=== PATIENT | female | born 1970 | race Caucasian/White ===

== ENCOUNTER 2019-12-06 07:16 | Outpatient (REF) | payer BC, SELFPAY ==
[2019-12-06 11:45] LABS: Free T4 (Free Thyroxine) 1.05 ng/dL (0.71-1.85); Thyroid Stimulating Hormone 2.19 mIU/mL (0.32-4.0)
[2019-12-07 06:16] LABS: Triiodothyronine T3 Free 2.4 pg/mL (2.3-4.2)
== END 2019-12-06 07:17 | disposition home or self-care (01) ==
LOC: HO.HMGCLDS 07:16
PROVIDERS: PCP Internal Medicine; Visit Provider Internal Medicine
DX: E05.90 Thyrotoxicosis, unspecified without thyrotoxic crisis or storm (principal)
CPT/HCPCS: 84439; 84443; 84481

== ENCOUNTER → 2019-12-08 14:09 | Outpatient (BNVA) | payer BC, SELFPAY | PROVIDERS: PCP Internal Medicine; Referring Provider Internal Medicine; Visit Provider Internal Medicine Cardiovascular Disease | DX: Z76.89 Persons encountering health services in other specified circumstances (principal) ==

== ENCOUNTER 2019-12-28 14:26 | Outpatient (REF) | payer BC, SELFPAY ==
--- NOTE | 2019-12-28 | XR_ITS ---
EXAMINATION: XR SINUSES CLINICAL INFORMATION: Sinus headache. COMPARISON: None TECHNIQUE: 3 views of the sinuses were obtained. FINDINGS: Paranasal sinuses appear clear without air-fluid levels. No fractures are identified. No radiodense foreign bodies. XR/XR sinus min 3V IMPRESSION: Unremarkable sinus examination.
== END 2019-12-28 14:27 | disposition home or self-care (01) ==
LOC: HO.XRAY 14:26
PROVIDERS: PCP Internal Medicine; Visit Provider Internal Medicine
DX: R51.9 Headache, unspecified (principal)
CPT/HCPCS: 70220

== ENCOUNTER 2020-04-19 08:42 | Outpatient (REF) | payer BC, SELFPAY ==
[2020-04-22 06:37] LABS: HPV mRNA E6/E7 rflx Not Detected (Not Detected)
== END 2020-04-19 08:43 | disposition home or self-care (01) ==
LOC: HO.LAB 08:42
PROVIDERS: PCP Internal Medicine; Visit Provider Internal Medicine Cardiovascular Disease
DX: Z01.419 Encounter for gynecological examination (general) (routine) without abnormal findings (principal); N90.89 Other specified noninflammatory disorders of vulva and perineum; E11.9 Type 2 diabetes mellitus without complications; E05.00 Thyrotoxicosis with diffuse goiter without thyrotoxic crisis or storm; E66.01 Morbid (severe) obesity due to excess calories; I48.0 Paroxysmal atrial fibrillation; Z87.891 Personal history of nicotine dependence; Z87.42 Personal history of other diseases of the female genital tract; Z90.721 Acquired absence of ovaries, unilateral; Z79.84 Long term (current) use of oral hypoglycemic drugs; Z79.899 Other long term (current) drug therapy
CPT/HCPCS: 36415; 87624; 88142; 93005

== ENCOUNTER 2020-07-21 07:21 | Outpatient (REF) | payer BC, SELFPAY ==
--- NOTE | ~2020-07-21 | MM_ITS ---
EXAMINATION: MM SCREENING DIGITAL BREAST TOMOSYNTHESIS, BILATERAL CLINICAL INFORMATION: Screening. Asymptomatic. The lifetime risk of breast cancer based on the Tyrer-Cuzick Model is 11%. COMPARISON: Mammography: 01/20/2019, 10/17/2017 TECHNIQUE: Digital breast tomosynthesis is performed in both the craniocaudal and mediolateral oblique views along with computer-aided detection (CAD). Synthesized 2D images are generated from the tomosynthesis. Additional bilateral CC and additional bilateral MLO views are provided. FINDINGS: The breasts are almost entirely fatty (ACR BI-RADS breast composition Category a). There are no significant masses, abnormal calcifications, or other abnormalities. Background stromal markings are stable. There are scattered bilateral benign round and rim calcifications. The axilla and skin contours are unremarkable. MM/MM tomosynthesis screening BI IMPRESSION: No mammographic evidence of malignancy. ASSESSMENT: BI-RADS 1: Negative RECOMMENDATION: Routine annual mammography screening. This patient's information was entered into a reminder system with a target due date for their next mammogram.
== END 2020-07-21 07:22 | disposition home or self-care (01) ==
LOC: HO.MAMMO 07:21
PROVIDERS: Absent Provider Advanced Practice Midwife; PCP Internal Medicine; Visit Provider Advanced Practice Midwife
DX: Z12.31 Encounter for screening mammogram for malignant neoplasm of breast (principal)
CPT/HCPCS: 77063; 77067

== ENCOUNTER 2020-08-15 10:48 | Outpatient (REF) | payer BC, SELFPAY ==
[2020-08-15 13:21] LABS: MANUAL DIFF FLAG NO
[2020-08-15 13:31] LABS: Basophils Percent Auto 0.4 % (0-2); Eosinophils Absolute Auto 0.2 X10*3/uL (0.0-0.4); Eosinophils Percent Auto 2.4 % (0-4); Hematocrit 42.1 % (37-47); Hemoglobin 13.4 g/dl (12.0-16.0); Imm Gran Abs Auto 0.02 X10*3/uL (0.00-0.03); Imm Gran Pct Auto 0.3 % (0.0-0.4); Lymphocytes Absolute Auto 1.8 X10*3/uL (1.2-4.9); Lymphocytes Percent Auto 22.2 % (20-40); Mean Corpuscular HGB Conc 31.8 g/dl (31.0-35.0); Mean Corpuscular Hemoglobin 29.1 pg (27.0-33.0); Mean Corpuscular Volume 91.3 fL (80-98); Mean Platelet Volume 9.7 fL (9.4-12.3); Monocytes Absolute Auto 0.4 X10*3/uL (0.1-1.2); Monocytes Percent Auto 4.8 % (2-11); Neutrophils Absolute Auto 5.5 X10*3/uL (2.0-8.3); Neutrophils Percent Auto 69.9 % (45-73); Platelet Count 272 X10*3/uL (160-400); Red Blood Count 4.61 X10*6/uL (4.20-5.50); Red Cell Distribution Width 13.3 % (11.0-16.0); White Blood Count 7.9 X10*3/uL (4.8-10.8)
[2020-08-15 13:34] LABS: Estimated Average Glucose 226 mg/dL; Hemoglobin A1c % 9.5 %
[2020-08-15 13:56] LABS: Creatinine Urine 128.86 mg/dL; Microalbum/Creatinine Ratio Ur 28.7 ug/mg cr
[2020-08-15 13:59] LABS: Alanine Aminotransferase 11 U/L (0-31); Albumin Level 4.2 g/dL (3.5-5.0); Alkaline Phosphatase 93 U/L (39-117); Anion Gap 14 (12-20); Aspartate Amino Transferase 19 U/L (5-31); Bilirubin Total 0.6 mg/dL (0.0-1.0); Blood Urea Nitrogen 7 mg/dL (9-16); Calcium 9.7 mg/dL (8.4-10.2); Carbon Dioxide 29 mmol/L (22-29); Chloride 102 mmol/L (96-108); Cholesterol 130 mg/dL; Estimated Glomerular Filt Rate > 60; Glucose Fasting 184 mg/dL (60-99); HDL Cholesterol 47 mg/dL; LDL Cholesterol Calculated 56 mg/dl; Potassium 4.3 mmol/L (3.3-5.1); Sodium 141 mmol/L (135-145); Total Protein 7.1 g/dL (6.5-8.0); Triglycerides 137 mg/dL
[2020-08-15 14:22] LABS: Free T4 (Free Thyroxine) 1.11 ng/dL (0.71-1.85); Thyroid Stimulating Hormone 0.45 uIU/mL (0.32-4.0)
[2020-08-16 09:06] LABS: Triiodothyronine T3 Free 3.2 pg/mL (2.3-4.2)
== END 2020-08-15 10:49 | disposition home or self-care (01) ==
LOC: HO.10HDL 10:48
PROVIDERS: PCP Internal Medicine; Visit Provider Internal Medicine
DX: E11.9 Type 2 diabetes mellitus without complications (principal); I10 Essential (primary) hypertension; E78.00 Pure hypercholesterolemia, unspecified; E03.9 Hypothyroidism, unspecified; E05.90 Thyrotoxicosis, unspecified without thyrotoxic crisis or storm
CPT/HCPCS: 36415; 80053; 80061; 82043; 83036; 84439; 84443; 84481; 85025

== ENCOUNTER → 2020-10-23 08:57 | Outpatient (BNVA) | payer BC, SELFPAY | PROVIDERS: PCP Internal Medicine; Referring Provider Internal Medicine; Visit Provider Internal Medicine Cardiovascular Disease | DX: I48.0 Paroxysmal atrial fibrillation (principal); R60.9 Edema, unspecified | CPT/HCPCS: 93005 ==

== ENCOUNTER 2020-12-15 14:15 | Outpatient (REF) | payer BC, SELFPAY ==
[2020-12-15 15:07] LABS: Influenza A PCR NEGATIVE (Negative); Influenza B PCR NEGATIVE (Negative); Resp Syncy Virus RNA Qual PCR NEGATIVE (Negative); SARS COV2 PCR INHOUSE NEGATIVE (Negative)
== END 2020-12-15 14:16 | disposition home or self-care (01) ==
LOC: HO.LNP 14:15
PROVIDERS: Visit Provider Internal Medicine
DX: Z20.822 Contact with and (suspected) exposure to COVID-19 (principal); R05.9 Cough, unspecified
CPT/HCPCS: 0241U

== ENCOUNTER 2021-01-03 10:15 | Outpatient (REF) | payer BC, SELFPAY ==
[2021-01-03 13:58] LABS: MANUAL DIFF FLAG NO
[2021-01-03 14:01] LABS: Basophils Percent Auto 0.2 % (0-2); Eosinophils Absolute Auto 0.2 X10*3/uL (0.0-0.4); Eosinophils Percent Auto 2.3 % (0-4); Hematocrit 43.1 % (37.0-47.0); Hemoglobin 14.2 g/dl (12.0-16.0); Imm Gran Abs Auto 0.03 X10*3/uL (0.00-0.03); Imm Gran Pct Auto 0.3 % (0.0-0.4); Lymphocytes Absolute Auto 1.9 X10*3/uL (1.2-4.9); Lymphocytes Percent Auto 20.7 % (20-40); Mean Corpuscular HGB Conc 32.9 g/dl (31.0-35.0); Mean Corpuscular Hemoglobin 29.7 pg (27.0-33.0); Mean Corpuscular Volume 90.2 fL (80.0-98.0); Mean Platelet Volume 9.8 fL (9.4-12.3); Monocytes Absolute Auto 0.5 X10*3/uL (0.1-1.2); Monocytes Percent Auto 5.4 % (2-11); Neutrophils Absolute Auto 6.4 x10*3/uL (2.0-8.3); Neutrophils Percent Auto 71.1 % (45-73); Platelet Count 304 X10*3/uL (160-400); Red Blood Count 4.78 X10*6/uL (4.20-5.50); Red Cell Distribution Width 13.1 % (11.0-16.0)
[2021-01-03 14:28] LABS: Estimated Average Glucose 240 mg/dL
[2021-01-03 14:40] LABS: Alanine Aminotransferase 15 U/L (0-31); Albumin Level 4.1 g/dL (3.5-5.0); Alkaline Phosphatase 88 U/L (39-117); Anion Gap 15 (12-20); Aspartate Amino Transferase 23 U/L (5-31); Bilirubin Total 0.7 mg/dL (0.0-1.0); Blood Urea Nitrogen 7 mg/dL (9-16); Calcium 9.2 mg/dL (8.4-10.2); Carbon Dioxide 27 mmol/L (22-29); Chloride 99 mmol/L (96-108); Estimated Glomerular Filt Rate > 60; Glucose Random 289 mg/dL (60-115); Magnesium 1.6 mg/dL (1.6-2.6); Sodium 137 mmol/L (135-145); Total Protein 6.9 g/dL (6.5-8.0)
[2021-01-03 14:48] LABS: Free T4 (Free Thyroxine) 1.16 ng/dL (0.71-1.85); Thyroid Stimulating Hormone 0.82 uIU/mL (0.32-4.0)
[2021-01-04 18:27] LABS: Triiodothyronine T3 Total 129 ng/dL (76-181)
[2021-01-09 07:55] LABS: Thyrotropin Receptor Antibody 7.42 IU/L (<=2.00)
== END 2021-01-03 10:16 | disposition home or self-care (01) ==
LOC: HO.10HDL 10:15
PROVIDERS: Absent Provider Internal Medicine; Visit Provider Internal Medicine
DX: I48.92 Unspecified atrial flutter (principal); I10 Essential (primary) hypertension; E11.9 Type 2 diabetes mellitus without complications; E03.9 Hypothyroidism, unspecified; R60.9 Edema, unspecified; E05.00 Thyrotoxicosis with diffuse goiter without thyrotoxic crisis or storm; E66.01 Morbid (severe) obesity due to excess calories; Z68.43 Body mass index [BMI] 50.0-59.9, adult; Z71.3 Dietary counseling and surveillance
CPT/HCPCS: 36415; 80053; 83036; 83520; 83735; 84439; 84443; 84480; 85025; 93005

== ENCOUNTER 2021-01-12 10:54 | Day surgery (SDC) | payer BC, SELFPAY ==
--- NOTE | 2021-01-11 11:48 | P.CONAN_ITS ---
Documented by User: Gladys Ku NP 01/11/21 11:50 HPI - Anesthesia Eval Consult details Narrative: 50yo F for Cardioversion Eliquis for afib/flutter PMFSH Active Problems Active Problems: All Active Problems (Updated 01/03/21 @ 15:41 by Italo Cervantes MD) Atrial flutter (Acute) Peripheral edema (Acute) Morbid obesity (Acute) Graves disease (Acute) Diabetes (Acute) PAF (paroxysmal atrial fibrillation) (Acute) Past Medical History Medical History (Updated 01/11/21 @ 11:49 by Gladys Ku NP) Diabetes Graves disease Morbid obesity PAF (paroxysmal atrial fibrillation) Family History Family History Father CVD (cardiovascular disease) Heart attack Mother Lung cancer Surgical History Surgical History History of hernia repair S/P removal of left ovary Social History Social History (Updated 01/03/21 @ 15:13 by DARRYL Christian) Alcohol intake: never Patient Tobacco Use Status: Never used Tobacco Use of substances other than those prescribed or required for medical reasons: No Have you been hit, kicked, punched, or otherwise hurt by someone within the past year? If so, by whom?: No Are you DNR?: No Advance Directives: No Advance Directives Information Provided: Yes Meds Allergies Allergy/AdvReac Type Severity Reaction Status Date / Time No Known Allergies Allergy Verified 01/03/21 15:05 Home Medications Medication Instructions Recorded Confirmed Last Taken Type apixaban 5 mg tablet 5 mg PO BID 12/08/19 01/03/21 01/12/21 History atorvastatin 10 mg tablet 10 mg PO DAILY 12/08/19 01/03/21 Unknown History ascorbate calcium (vitamin C) 500 500 mg PO BID 10/23/20 01/03/21 Unknown History mg tablet metformin 500 mg tablet 500 mg PO BID tab 10/23/20 01/03/21 Unknown History methimazole 5 mg tablet 5 mg PO .qod tab 10/23/20 01/03/21 Unknown History glipizide 5 mg tablet, extended 10 mg PO BID tab 01/03/21 01/03/21 Unknown History release 24 hr Exam Exam Date and Time: January 11, 2021 1148 Pertinent Lab Results Pertinent Lab Results: Laboratory Tests 01/03/21 01/03/21 10:20 10:20 WBC 9.0 Hgb 14.2 Hct 43.1 Plt Count 304 Sodium 137 Potassium 4.0 Chloride 99 Carbon Dioxide 27 BUN 7 L Creatinine 0.82 Narrative Narrative: EKG 12/2020 Atrial flutter 120 beats per minute. Assessment and Plan Assessment Anesthesia Assessment: Chart Reviewed Documented by User: Teodoro Pendleton MD 01/12/21 12:50 [facility] Past Medical History Medical History (Updated 01/11/21 @ 11:49 by Gladys Ku NP) Diabetes Graves disease Morbid obesity PAF (paroxysmal atrial fibrillation) Family History Family History Father CVD (cardiovascular disease) Heart attack Mother Lung cancer Family history of problems with anesthesia: No Surgical History Surgical History History of hernia repair S/P removal of left ovary History of Problems with Anesthesia: No Social History Social History (Updated 01/03/21 @ 15:13 by DARRYL Christian) Alcohol intake: never Patient Tobacco Use Status: Never used Tobacco Use of substances other than those prescribed or required for medical reasons: No Have you been hit, kicked, punched, or otherwise hurt by someone within the past year? If so, by whom?: No Are you DNR?: No Advance Directives: No Advance Directives Information Provided: Yes Meds Allergies Allergy/AdvReac Type Severity Reaction Status Date / Time No Known Allergies Allergy Verified 01/03/21 15:05 Home Medications Medication Instructions Recorded Confirmed Last Taken Type apixaban 5 mg tablet 5 mg PO BID 12/08/19 01/03/21 01/12/21 History atorvastatin 10 mg tablet 10 mg PO DAILY 12/08/19 01/03/21 Unknown History ascorbate calcium (vitamin C) 500 500 mg PO BID 10/23/20 01/03/21 Unknown History mg tablet metformin 500 mg tablet 500 mg PO BID tab 10/23/20 01/03/21 Unknown History methimazole 5 mg tablet 5 mg PO .qod tab 10/23/20 01/03/21 Unknown History glipizide 5 mg tablet, extended 10 mg PO BID tab 01/03/21 01/03/21 Unknown History release 24 hr Exam Airway Mallampati Class: III TM Dist: >3cm Neck ROM: Full Denture: Upper and Lower Loose/Missing/Broken Teeth: Yes Heart: irreg ireg [id number] Lungs: cta b/l Assessment and Plan Assessment Anesthesia Assessment: Anesthesia Plan Discussed Final Anesthetic Review Family History of Problems with Anesthesia: No History of Problems with Anesthesia: No NPO: Yes ASA Class: III Final Preanesthetic Review: No Changes in Pt Med Stat, Meds/Allgs Chart Reviewed, Consent Obtained/Reviewed and Anes Risks/Benef Reviewed Patient Risk: Intermediate Procedure Risk: Intermediate Assessment/Block/Sedation in SS: Assess/Block/Sedation-SS Anesthetic Plan Anesthetic Plan: MAC: and Agree w/ Assess. and Plan Disposition: Standard PACU
--- NOTE | 2021-01-12 | ECG_ITS ---
Test Reason : post op Blood Pressure : / mmHG Vent. Rate : 093 BPM Atrial Rate : 093 BPM P-R Int : 242 ms QRS Dur : 096 ms QT Int : 568 ms P-R-T Axes : 045 013 053 degrees QTc Int : 706 ms Sinus rhythm with 1st degree A-V block Low voltage QRS Intra-ventricular conduction delay Prolonged QT Nonspecific T wave abnormality Abnormal ECG When compared with ECG of 12-JAN-2021 11:37, Normal sinus rhythm has replaced Atrial flutter with [address] less depressed in Lateral leads Referred By: Italo Cervantes Electronically Signed By:CARLOS BARKER MD
[2021-01-12 11:12] VITALS: BMI 61.0
[2021-01-12 11:13] LABS: Glucose, Whole Blood 245 mg/dL (60-115)
[2021-01-12 11:16] VITALS: BP 143/109; PULSE 112; RESP 18; TEMP 36.1; O2SAT 96
--- NOTE | 2021-01-12 11:29 | ECG_ITS ---
Test Reason : preop Blood Pressure : / mmHG Vent. Rate : 103 BPM Atrial Rate : 214 BPM P-R Int : 000 ms QRS Dur : 084 ms QT Int : 470 ms P-R-T Axes : 000 023 106 degrees QTc Int : 615 ms AGE AND GENDER SPECIFIC ECG ANALYSIS Atrial flutter with variable A-V block Intra-ventricular conduction delay Nonspecific ST abnormality Lateral leads Abnormal ECG When compared with ECG of 21-OCT-2019 11:28, Atrial flutter has replaced Sinus rhythm ST more depressed Lateral leads Referred By: Italo Cervantes Electronically Signed By:CARLOS BARKER MD
[2021-01-12] MEDS: Lactated Ringers 1,000 ML 50 ML IVCONT (11:35)
--- NOTE | 2021-01-12 11:46 | PC.NURSE ---
dr concepcion checked ekg confirmed aflutter
--- NOTE | 2021-01-12 13:16 | MHC.SHP ---
Pre-Procedural Eval Section A Date of Service: 01/12/21 The patient is an INPATIENT: No Section B Chief Complaint: Atrial Flutter Allergies: Allergies Allergy/AdvReac Type Severity Reaction Status Date / Time No Known Allergies Allergy Verified 01/03/21 15:05 Plan Diagnosis/Plan: Unchanged I have reviewed the history and physical and performed a pertinent physical examination on my patient. No changes have occurred unless specified.
--- NOTE | 2021-01-12 13:16 | HO.CARDIVERS ---
Cardioversion Procedure Note Cardioversion Date of Procedure: 01/12/21 Ordering Provider: Italo Cervantes Performing Provider: Italo Cervantes Indication for Procedure: Atrial flutter Performed with Transesophageal Echo: No History: 50 year old with atrial flutter. Here for cardioversion. Consent: Verbal and Written consent was obtained from the patient before starting. The patient was made aware of the risk of [] Procedure: After consent obtained, defib pads were attached and the patient was sedated by the anesthesia team. Once adequate sedation achieved, single shock of 200 J was given to the patient. She reverted to sinus rhythm. Left in stable condition for recovery from anesthesia. Complications: None Recommendations: Continue all meds as before.
[2021-01-12 13:20] VITALS: BP 109/72; PULSE 91; RESP 16; TEMP 36.4; O2SAT 95
[2021-01-12 13:25] VITALS: BP 124/76; PULSE 94; RESP 17; O2SAT 98
[2021-01-12 13:30] VITALS: BP 132/70; PULSE 91; RESP 16; O2SAT 96
[2021-01-12 13:35] VITALS: BP 124/83; PULSE 92; RESP 18; O2SAT 96
[2021-01-12 13:50] VITALS: BP 133/73; PULSE 93; RESP 18; O2SAT 96
== END 2021-01-12 15:32 | disposition home or self-care (01) ==
PROVIDERS: PCP Internal Medicine; Visit Provider Internal Medicine Cardiovascular Disease
PROC: 5A2204Z Restoration of Cardiac Rhythm, Single (ICD-10-PCS; principal; 2021-01-12 12:30)
DX: I48.92 Unspecified atrial flutter (principal); R60.9 Edema, unspecified; E05.00 Thyrotoxicosis with diffuse goiter without thyrotoxic crisis or storm; E11.9 Type 2 diabetes mellitus without complications; E66.01 Morbid (severe) obesity due to excess calories; Z68.43 Body mass index [BMI] 50.0-59.9, adult; Z79.01 Long term (current) use of anticoagulants; Z79.84 Long term (current) use of oral hypoglycemic drugs; Z79.899 Other long term (current) drug therapy
CPT/HCPCS: 82947; 92960; 93005

== ENCOUNTER → 2021-02-07 08:07 | Outpatient (REF) | payer BC, SELFPAY ==
--- NOTE | 2021-02-07 08:10 | CA_ITS ---
Transthoracic Echocardiogram Patient (Last, First, Middle): Corazon Cortez A Gender: Female Date of : 1970 Age: 50 Procedure Date: 02/07/2021 Procedure Type: Transthoracic Echocardiogram Location: OP Height: 170.18 cm Weight: 176.9 kg BSA: 2.69 m2 Heart Rate: bpm BP: 135 / 80 mmHg Orthopedic Physician Assistant: GERA Villeda MD: Italo Cervantes MD Symptoms: I48.0 - Paroxysmal atrial fibrillation Study Quality: Technically Difficult/Contrast Conclusions: - Normal left ventricular size and systolic function. - E/E prime ratio is between 8 and 15 consistent with indeterminate filling pressures. - Normal right ventricular cavity size and systolic function. - There is mild dilatation of the ascending aorta measuring 3.40 cm. Findings Procedure Information Contrast agent, definity, is being given per protocol without apparent complications. Left Ventricle Normal left ventricular size and systolic function. There is mildly increased left ventricular wall thickness. The visually estimated ejection fraction is between 60-65%. Abnormal diastolic function is noted. Spectral Doppler is indicative of an impaired relaxation filling pattern. E/E prime ratio is between 8 and 15 consistent with indeterminate filling pressures. Right Ventricle Normal right ventricular cavity size and systolic function. Atria Both atria are normal in size. Aortic Valve The aortic valve structure and function is likely normal. There is no aortic valve stenosis. There is no aortic valve regurgitation. Mitral Valve Normal mitral valve structure and function. There is no mitral valve regurgitation. There is no mitral valve stenosis. Pulmonic Valve The pulmonic valve is likely normal. Tricuspid Valve Likely normal tricuspid valve structure and function. Tricuspid regurgitation envelope is inadequate for calculation of right ventricular systolic pressure. Normal right atrial pressure. Great Vessels There is mild dilatation of the ascending aorta measuring 3.40 cm. The visualized portions of the pulmonary artery and branches are normal. Venous The inferior vena cava is normal in size and collapses greater than 50% with inspiration. Pericardium/Pleural There is no evidence of pericardial effusion. Prior Study Comparison No significant change compared to prior study dated: 04/23/2019. Measurements 2D Linear Measurements IVSd: 1.05 0.6-0.9/0.6-1.0 cm LVIDd: 4.64 3.9-5.3/4.2-5.9 cm LVIDd Index: 1.72 2.4-3.2/2.2-3.1 cm/m2 LVIDs: 3.51 2.0-3.6 cm LVPWd: 1.07 0.7-1.1 cm Ao Root: 3.40 2.1-3.5 cm LA Diam: 4.10 2.7-3.8/3.0-4.0 cm LAIDs Index: 1.52 1.5-2.3 cm/m2 LV Mass: 217.38 67-162/88-224 g LV Mass Index: 80.81 43-95/49-115 g/m2 LVOT Diam: 2.20 3.0+(-)1.3 cm 2D Systolic Function EF 4C: 62.30 >55% EF 2C: 64.50 >55% EF BiP: 63.40 >55% Mitral Valve MV Pk E: 0.95 MV PK A: 1.14 MV Decel Time: 96.00 E/A: 0.80 E'Lateral: 9.36 E'Medial: 6.53 E/E' Med: 14.60 E/E' Lat: 10.20 PHT: 28.00 MVA PHT: 7.86 Decel Bland: 9.89 Aortic Valve AoV Pk Sheng: 1.42 AoV Mn Sheng: 0.87 AoV VTI: 0.27 AoV Pk Grad: 8.00 Aov Mn Grad: 4.00 ANISA Cont.VTI: 3.62 LVOT LVOT Pk Sheng: 1.21 LVOT Mn Sheng: 0.83 LVOT VTI: 0.26 LVOT Pk Grad: 6.00 LVOT Mn Grad: 3.00 LVOT Diam: 2.20 LVOT Area: 3.80 Diastolic Function MV Pk E: 0.95 MV Pk A: 1.14 E/A: 0.80 E'Medial: 6.53 E/E' Med: 14.60 E' Laterial: 9.36 E/E' Lat: 10.20 Right Ventricle TAPSE (mm): 2.82 TVS' Sheng: 15.80 Great Vessels Aorta Ao Root-2D: 3.40 2.0-3.7 cm Ao Asc: 3.40 2.1-3.4 cm Ao Arch: 2.40 Updated in Other Vendor System with Status of Final Italo Cervantes MD electronically signed on 02/08/2021 7:10:49 PM with status of Final
== END ==
LOC: HO.CARD 08:07
PROVIDERS: PCP Internal Medicine; Visit Provider Internal Medicine Cardiovascular Disease
DX: I48.0 Paroxysmal atrial fibrillation (principal); Z79.01 Long term (current) use of anticoagulants
CPT/HCPCS: 93005; 93306; Q9957

== ENCOUNTER 2021-03-01 13:58 | Outpatient (REF) | payer BC, SELFPAY ==
[2021-03-01 14:10] LABS: COVID-19 Test Positive (Negative)
== END 2021-03-01 13:59 | disposition home or self-care (01) ==
LOC: HO.LNP 13:58
PROVIDERS: Visit Provider Internal Medicine
DX: Z20.822 Contact with and (suspected) exposure to COVID-19 (principal); R05.9 Cough, unspecified; R51.9 Headache, unspecified
CPT/HCPCS: 87635

== ENCOUNTER 2021-04-09 09:25 | Outpatient (REF) | payer BC, SELFPAY ==
[2021-04-09 11:45] LABS: MANUAL DIFF FLAG NO
[2021-04-09 11:54] LABS: Basophils Percent Auto 0.4 % (0-2); Eosinophils Absolute Auto 0.2 X10*3/uL (0.0-0.4); Eosinophils Percent Auto 2.5 % (0-4); Hematocrit 43.3 % (37.0-47.0); Hemoglobin 13.6 g/dl (12.0-16.0); Imm Gran Abs Auto 0.03 X10*3/uL (0.00-0.03); Imm Gran Pct Auto 0.4 % (0.0-0.4); Lymphocytes Absolute Auto 1.9 X10*3/uL (1.2-4.9); Mean Corpuscular HGB Conc 31.4 g/dl (31.0-35.0); Mean Corpuscular Hemoglobin 28.9 pg (27.0-33.0); Mean Corpuscular Volume 92.1 fL (80.0-98.0); Mean Platelet Volume 9.7 fL (9.4-12.3); Monocytes Absolute Auto 0.5 X10*3/uL (0.1-1.2); Monocytes Percent Auto 5.5 % (2-11); Neutrophils Absolute Auto 5.6 x10*3/uL (2.0-8.3); Neutrophils Percent Auto 68.2 % (45-73); Platelet Count 309 X10*3/uL (160-400); Red Cell Distribution Width 13.8 % (11.0-16.0); White Blood Count 8.2 X10*3/uL (4.8-10.8)
[2021-04-09 11:57] LABS: Estimated Average Glucose 235 mg/dL; Hemoglobin A1c % 9.8 %
[2021-04-09 12:01] LABS: Creatinine Urine 217.01 mg/dL; Microalbum/Creatinine Ratio Ur 9.6 ug/mg cr
[2021-04-09 12:03] LABS: Alanine Aminotransferase 13 U/L (0-31); Alkaline Phosphatase 80 U/L (39-117); Anion Gap 13 (12-20); Aspartate Amino Transferase 18 U/L (5-31); Bilirubin Total 0.7 mg/dL (0.0-1.0); Blood Urea Nitrogen 8 mg/dL (9-16); Calcium 10.1 mg/dL (8.4-10.2); Carbon Dioxide 31 mmol/L (22-29); Chloride 99 mmol/L (96-108); Estimated Glomerular Filt Rate > 60; Glucose Random 212 mg/dL (60-115); Potassium 4.9 mmol/L (3.3-5.1); Sodium 138 mmol/L (135-145); Total Protein 6.9 g/dL (6.5-8.0)
[2021-04-09 12:37] LABS: Free T4 (Free Thyroxine) 1.14 ng/dL (0.71-1.85); Thyroid Stimulating Hormone 1.19 uIU/mL (0.32-4.0)
== END 2021-04-09 09:26 | disposition home or self-care (01) ==
LOC: HO.HMGCLDS 09:25
PROVIDERS: PCP Internal Medicine; Visit Provider Internal Medicine
DX: E05.90 Thyrotoxicosis, unspecified without thyrotoxic crisis or storm (principal); E11.9 Type 2 diabetes mellitus without complications; I48.0 Paroxysmal atrial fibrillation; I10 Essential (primary) hypertension
CPT/HCPCS: 36415; 80053; 82043; 83036; 84439; 84443; 84481; 85025

== ENCOUNTER → 2021-06-06 12:21 | Outpatient (BNVA) | payer BC, SELFPAY | PROVIDERS: PCP Internal Medicine; Referring Provider Internal Medicine; Visit Provider Internal Medicine Cardiovascular Disease | DX: I48.0 Paroxysmal atrial fibrillation (principal); I48.92 Unspecified atrial flutter; R60.9 Edema, unspecified; E66.01 Morbid (severe) obesity due to excess calories; Z68.43 Body mass index [BMI] 50.0-59.9, adult | CPT/HCPCS: 93005 ==

== ENCOUNTER 2021-07-24 06:37 | Outpatient (REF) | payer BC, SELFPAY ==
[2021-07-24 11:47] LABS: Anion Gap 17 (12-20); Blood Urea Nitrogen 10 mg/dL (9-16); Calcium 9.8 mg/dL (8.4-10.2); Carbon Dioxide 26 mmol/L (22-29); Chloride 103 mmol/L (96-108); Estimated Glomerular Filt Rate > 60; Glucose Random 170 mg/dL (60-115); Sodium 142 mmol/L (135-145)
[2021-07-24 12:02] LABS: Creatinine Urine 102.06 mg/dL; Microalbum/Creatinine Ratio Ur 7.8 ug/mg cr
[2021-07-24 12:03] LABS: Estimated Average Glucose 183 mg/dL
[2021-07-24 12:10] LABS: Free T4 (Free Thyroxine) 1.17 ng/dL (0.71-1.85)
== END 2021-07-24 06:38 | disposition home or self-care (01) ==
LOC: HO.HMGCLDS 06:37
PROVIDERS: PCP Internal Medicine; Visit Provider Internal Medicine
DX: E05.00 Thyrotoxicosis with diffuse goiter without thyrotoxic crisis or storm (principal); E05.90 Thyrotoxicosis, unspecified without thyrotoxic crisis or storm; E11.9 Type 2 diabetes mellitus without complications; I10 Essential (primary) hypertension; I48.0 Paroxysmal atrial fibrillation
CPT/HCPCS: 36415; 80048; 82043; 83036; 84439; 84443; 84481

== ENCOUNTER 2021-07-26 07:40 | Outpatient (REF) | payer BC, SELFPAY ==
--- NOTE | ~2021-07-26 | MM_ITS ---
EXAMINATION: MM SCREENING DIGITAL BREAST TOMOSYNTHESIS, BILATERAL CLINICAL INFORMATION: Screening. Asymptomatic. The lifetime risk of breast cancer based on the Tyrer-Cuzick Model is 8%. COMPARISON: Mammography: 07/21/2020, 01/20/2019, 10/17/2017 TECHNIQUE: Digital breast tomosynthesis is performed in both the craniocaudal and mediolateral oblique views along with computer-aided detection (CAD). Synthesized 2D images are generated from the tomosynthesis. Additional bilateral CC views and additional left MLO view are provided. FINDINGS: The breasts are almost entirely fatty (ACR BI-RADS breast composition Category a). There are no significant masses, abnormal calcifications, or other abnormalities. Parenchymal pattern is similar to prior exams. Background stromal and fibroglandular densities are stable. Skin contours are smooth. MM/MM tomosynthesis screening BI IMPRESSION: No mammographic evidence of malignancy. ASSESSMENT: BI-RADS 1: Negative RECOMMENDATION: Routine annual mammography screening. This patient's information was entered into a reminder system with a target due date for their next mammogram.
== END 2021-07-26 07:41 | disposition home or self-care (01) ==
LOC: HO.MAMMO 07:40
PROVIDERS: PCP Internal Medicine; Visit Provider Advanced Practice Midwife
DX: Z12.31 Encounter for screening mammogram for malignant neoplasm of breast (principal)
CPT/HCPCS: 77063; 77067

== ENCOUNTER 2021-10-18 12:32 | Outpatient (REF) | payer BC, SELFPAY ==
[2021-10-18 15:03] LABS: Free T4 (Free Thyroxine) 1.26 ng/dL (0.71-1.85); Thyroid Stimulating Hormone 0.55 uIU/mL (0.32-4.0)
[2021-10-19 18:02] LABS: Triiodothyronine T3 Free 3.4 pg/mL (2.3-4.2)
== END 2021-10-18 12:33 | disposition home or self-care (01) ==
LOC: HO.HMGCLDS 12:32
PROVIDERS: PCP Internal Medicine; Visit Provider Internal Medicine
DX: E05.90 Thyrotoxicosis, unspecified without thyrotoxic crisis or storm (principal)
CPT/HCPCS: 36415; 84439; 84443; 84481

== ENCOUNTER → 2021-10-22 12:30 | Outpatient (BNVA) | payer BC, SELFPAY | PROVIDERS: PCP Internal Medicine; Referring Provider Internal Medicine; Visit Provider Internal Medicine Cardiovascular Disease | DX: I48.0 Paroxysmal atrial fibrillation (principal); E66.01 Morbid (severe) obesity due to excess calories | CPT/HCPCS: 93005 ==

== ENCOUNTER 2021-11-15 10:41 | Outpatient (REF) | payer BC, SELFPAY ==
[2021-11-15 14:00] LABS: MANUAL DIFF FLAG NO
[2021-11-15 14:10] LABS: Basophils Percent Auto 0.3 % (0-2); Eosinophils Absolute Auto 0.2 X10*3/uL (0.0-0.4); Eosinophils Percent Auto 2.3 % (0-4); Hematocrit 41.9 % (37.0-47.0); Hemoglobin 13.2 g/dl (12.0-16.0); Imm Gran Abs Auto 0.03 X10*3/uL (0.00-0.03); Imm Gran Pct Auto 0.4 % (0.0-0.4); Lymphocytes Absolute Auto 1.4 X10*3/uL (1.2-4.9); Lymphocytes Percent Auto 19.2 % (20-40); Mean Corpuscular HGB Conc 31.5 g/dl (31.0-35.0); Mean Corpuscular Volume 92.1 fL (80.0-98.0); Mean Platelet Volume 9.6 fL (9.4-12.3); Monocytes Absolute Auto 0.4 X10*3/uL (0.1-1.2); Neutrophils Absolute Auto 5.4 x10*3/uL (2.0-8.3); Neutrophils Percent Auto 72.8 % (45-73); Platelet Count 317 X10*3/uL (160-400); Red Blood Count 4.55 X10*6/uL (4.20-5.50); Red Cell Distribution Width 13.5 % (11.0-16.0); White Blood Count 7.4 X10*3/uL (4.8-10.8)
[2021-11-15 14:21] LABS: Estimated Average Glucose 169 mg/dL; Hemoglobin A1c % 7.5 %
[2021-11-15 14:38] LABS: Anion Gap 16 (12-20); Blood Urea Nitrogen 10 mg/dL (9-16); Calcium 9.2 mg/dL (8.4-10.2); Carbon Dioxide 28 mmol/L (22-29); Chloride 100 mmol/L (96-108); Estimated Glomerular Filt Rate > 60; Glucose Random 182 mg/dL (60-115); Magnesium 1.3 mg/dL (1.6-2.6); Potassium 4.2 mmol/L (3.3-5.1); Sodium 140 mmol/L (135-145)
== END 2021-11-15 10:42 | disposition home or self-care (01) ==
LOC: HO.10HDL 10:41
PROVIDERS: Visit Provider Internal Medicine
DX: I48.0 Paroxysmal atrial fibrillation (principal); I10 Essential (primary) hypertension; E11.9 Type 2 diabetes mellitus without complications
CPT/HCPCS: 36415; 80048; 83036; 83735; 85025

== ENCOUNTER 2022-01-10 10:49 | Outpatient (REF) | payer BC, SELFPAY ==
--- NOTE | ~2022-01-10 | US_ITS ---
EXAMINATION: US PELVIS TRANSVAGINAL CLINICAL INFORMATION: Postmenopausal bleeding COMPARISON: October 29, 2017 TECHNIQUE: Transcutaneous and transvaginal pelvic ultrasound. Transvaginal scanning was performed after voiding to better evaluate the endometrium and adnexa. FINDINGS: The uterus measures 8.6 x 3.6 x 4.2 cm. The uterus is anteverted. Trace fluid is seen within the cervix. The uterine contour is smooth. The endometrium measures 0.5 cm. The uterus is heterogeneous in echotexture which is a nonspecific finding but can be seen with uterine adenomyosis. No abnormal mass appreciated. The right ovary is not identified. No right adnexal abnormality is seen. The left ovary has been surgically removed. No left adnexal abnormality is appreciated. No significant free pelvic fluid. US/US pelvic and transvaginal IMPRESSION: Unremarkable examination.
== END 2022-01-10 10:50 | disposition home or self-care (01) ==
LOC: HO.US 10:49
PROVIDERS: Visit Provider Advanced Practice Midwife
DX: N95.0 Postmenopausal bleeding (principal)
CPT/HCPCS: 76830; 76856

== ENCOUNTER → 2022-02-06 14:03 | Outpatient (BNVA) | payer BC, SELFPAY | PROVIDERS: PCP Internal Medicine; Visit Provider Internal Medicine Cardiovascular Disease | DX: I48.92 Unspecified atrial flutter (principal) | CPT/HCPCS: 93005 ==

== ENCOUNTER 2022-02-06 14:31 | Inpatient (IN) | payer BC, SELFPAY ==
--- NOTE | ~2022-02-06 | XR_ITS ---
EXAMINATION: XR CHEST CLINICAL INFORMATION: Atrial flutter COMPARISON: None TECHNIQUE: Frontal view of the chest was obtained. FINDINGS: The lungs are clear. No airspace consolidation, pleural effusion, or pneumothorax. The cardiomediastinal silhouette is within normal limits. No acute osseous injury. XR/XR chest 1V IMPRESSION: No acute pulmonary process.
--- NOTE | 2022-02-06 14:37 | ED_ITS ---
HPI - Arrhythmia/Palpitations General Stated Complaint: cardiovascular, sent from cardiology Related Data Home Medications Medication Instructions Recorded Confirmed apixaban 5 mg tablet 5 mg PO BID 12/08/19 10/22/21 atorvastatin 10 mg tablet 10 mg PO DAILY 12/08/19 10/22/21 ascorbate calcium (vitamin C) 500 500 mg PO BID 10/23/20 10/22/21 mg tablet methimazole 5 mg tablet 5 mg PO .qod 10/23/20 10/22/21 glipizide 5 mg tablet, extended 10 mg PO BID 01/03/21 10/22/21 release 24 hr sitagliptin phosphate 100 mg 100 mg PO DAILY 06/06/21 10/22/21 tablet (Januvia) magnesium oxide 400 mg PO DAILY 01/09/22 metformin 1,000 mg tablet 1,500 mg PO BID 01/09/22 tirzepatide 5 mg/0.5 mL mg subcut 01/09/22 subcutaneous pen injector (Serene) Previous Rx's Medication Instructions Recorded flecainide 100 mg tablet 150 mg PO BID 90 days #270 tabs 03/19/21 furosemide 20 mg tablet 20 mg PO DAILY #60 tabs 10/08/21 diltiazem HCl 240 mg 240 mg PO DAILY #90 caps 10/30/21 capsule,extended release 24 hr Allergies Allergy/AdvReac Type Severity Reaction Status Date / Time No Known Allergies Allergy Verified 02/06/22 14:26 [facility] Past Medical History Medical History Diabetes Graves disease Morbid obesity PAF (paroxysmal atrial fibrillation) Surgical History H/O knee surgery History of hernia repair S/P removal of left ovary Family History Family History Father CVD (cardiovascular disease) Heart attack Mother Lung cancer Social History Social History Household Members: None Housing: Apartment Alcohol intake: never Patient Tobacco Use Status: Never used Tobacco Current occupational status: unemployed Sexual orientation: Straight/Heterosexual Gender identity: Female Course Course Course Narrative: This is a rapid medical exam. Deferred additional HPI, ROS, PE to primary provider. 51-year-old female with a history of AFib on Eliquis, diabetes, Graves disease she presents from Cardiology Office in AFib. Sent in for cardioversion. Patient c/o shortness of breath, heart fluttering/palpitations since last evening. Discharge Plan Discharge Prescriptions: No Action flecainide 100 mg tablet 150 mg PO BID 90 Days Qty: 270 3RF furosemide 20 mg tablet 20 mg PO DAILY Qty: 60 3RF diltiazem HCl 240 mg capsule,extended release 24hr 240 mg PO DAILY Qty: 90 3RF ascorbate calcium (vitamin C) 500 mg tablet 500 mg PO BID Eliquis 5 mg tablet 5 mg PO BID atorvastatin 10 mg tablet 10 mg PO DAILY methimazole 5 mg tablet 5 mg PO .qod glipizide 5 mg tablet extended release 24hr 10 mg PO BID metformin 1,000 mg tablet 1,500 mg PO BID Rx Instructions: 1 tab , 2 tab at night Mounjaro 5 mg/0.5 mL pen injector subcut magnesium oxide 400 mg magnesium capsule 400 mg PO DAILY Januvia 100 mg tablet 100 mg PO DAILY
[2022-02-06 14:40] VITALS: BP 155/88; PULSE 107; RESP 17; TEMP 35.9; O2SAT 95; BMI 58.1
--- NOTE | 2022-02-06 14:41 | ECG_ITS ---
Test Reason : tachy Blood Pressure : / mmHG Vent. Rate : 108 BPM Atrial Rate : 216 BPM P-R Int : 000 ms QRS Dur : 088 ms QT Int : 336 ms P-R-T Axes : 255 -03 -78 degrees QTc Int : 450 ms Atrial flutter with 2:1 A-V conduction Low voltage QRS Cannot rule out Anterior infarct (cited on or before 06-FEB-2022) Abnormal ECG When compared with ECG of 12-JAN-2021 13:22, rhythm change Referred By: Ana Montemayor Electronically Signed By:NIKKI HENRY
[2022-02-06 15:04] LABS: MANUAL DIFF FLAG NO
[2022-02-06 15:07] LABS: Basophils Percent Auto 0.1 % (0-2); Eosinophils Absolute Auto 0.3 X10*3/uL (0.0-0.4); Eosinophils Percent Auto 3.1 % (0-4); Hematocrit 44.2 % (37.0-47.0); Hemoglobin 14.4 g/dl (12.0-16.0); Imm Gran Abs Auto 0.03 X10*3/uL (0.00-0.03); Imm Gran Pct Auto 0.3 % (0.0-0.4); Lymphocytes Percent Auto 19.5 % (20-40); Mean Corpuscular HGB Conc 32.6 g/dl (31.0-35.0); Mean Corpuscular Hemoglobin 29.3 pg (27.0-33.0); Mean Platelet Volume 8.7 fL (9.4-12.3); Monocytes Absolute Auto 0.6 X10*3/uL (0.1-1.2); Monocytes Percent Auto 5.8 % (2-11); Neutrophils Absolute Auto 7.3 x10*3/uL (2.0-8.3); Neutrophils Percent Auto 71.2 % (45-73); Platelet Count 279 X10*3/uL (160-400); Red Blood Count 4.91 X10*6/uL (4.20-5.50); Red Cell Distribution Width 12.9 % (11.0-16.0); White Blood Count 10.3 X10*3/uL (4.8-10.8)
[2022-02-06 15:13] LABS: INTERNATIONAL NORM RATIO 1.3 (0.9-1.1); Prothrombin Time 15.1 SEC (10.0-13.1)
--- NOTE | 2022-02-06 15:23 | ED_ITS ---
HPI - Arrhythmia/Palpitations General Chief Complaint: Recheck/Abnormal Lab/Rx Stated Complaint: cardiovascular, sent from cardiology Time Seen by Provider: 02/06/22 15:09 Source: patient Mode of arrival: ambulatory Limitations: no limitations History of Present Illness HPI narrative: 51-year-old female with history of paroxysmal AFib started since last night feeling palpitation with slight shortness of breath but no chest pain patient wear a wrist watch that indicated patient in atrial fibrillation, patient went to see the school psychology professor today who sent her to the ED for further evaluation. Patient currently has no symptoms. Related Data Home Medications Medication Instructions Recorded Confirmed apixaban 5 mg tablet 5 mg PO BID 12/08/19 10/22/21 atorvastatin 10 mg tablet 10 mg PO DAILY 12/08/19 10/22/21 ascorbate calcium (vitamin C) 500 500 mg PO BID 10/23/20 10/22/21 mg tablet methimazole 5 mg tablet 5 mg PO .qod 10/23/20 10/22/21 glipizide 5 mg tablet, extended 10 mg PO BID 01/03/21 10/22/21 release 24 hr sitagliptin phosphate 100 mg 100 mg PO DAILY 06/06/21 10/22/21 tablet (Januvia) magnesium oxide 400 mg PO DAILY 01/09/22 metformin 1,000 mg tablet 1,500 mg PO BID 01/09/22 tirzepatide 5 mg/0.5 mL mg subcut 01/09/22 subcutaneous pen injector (Mounjaro) Previous Rx's Medication Instructions Recorded flecainide 100 mg tablet 150 mg PO BID 90 days #270 tabs 03/19/21 furosemide 20 mg tablet 20 mg PO DAILY #60 tabs 10/08/21 diltiazem HCl 240 mg 240 mg PO DAILY #90 caps 10/30/21 capsule,extended release 24 hr Allergies Allergy/AdvReac Type Severity Reaction Status Date / Time No Known Allergies Allergy Verified 02/06/22 14:26 Review of Systems Review of Systems: All other systems are reviewed and are negative Constitutional: Reports as per HPI and Reports no additional constitutional complaints Eyes: Reports as per HPI and Reports no additional eye complaints Reports system reviewed and no additional complaints, except as documented Cardiovascular: Reports as per HPI and Reports no additional cardiovascular com plaints Respiratory: Reports as per HPI and Reports no additional respiratory complaints Gastrointestinal: Reports as per HPI and Reports no additional gastrointestinal complaints Genitourinary: Reports no additional female genitourinary complaints Musculoskeletal: Reports no additional musculoskeletal complaints Skin/Breast: Reports system reviewed and no additional complaints, except as docu Psychiatric: Reports no additional psychiatric complaints Endocrine: Reports no additional endocrine complaints Hematologic/Lymphatic: Reports no additional hematologic/lymphatic complaints Allergic/Immunologic: Reports no additional allergic/immunologic complaints Reports system reviewed and no additional complaints, except as documented and Reports Abnormal speech present [facility] Past Medical History Medical History Diabetes Graves disease Morbid obesity PAF (paroxysmal atrial fibrillation) Surgical History H/O knee surgery History of hernia repair S/P removal of left ovary Family History Family History Father CVD (cardiovascular disease) Heart attack Mother Lung cancer Social History Social History Household Members: None Housing: Apartment Alcohol intake: never Patient Tobacco Use Status: Never used Tobacco Advance Directives: No Advance Directives Information Provided: Yes Current occupational status: unemployed Sexual orientation: Straight/Heterosexual Gender identity: Female Physical Exam Vital Signs: Vital Signs: Last Vital Signs Temp 96.6 F L 02/06/22 14:40 Pulse 107 H 02/06/22 14:40 Resp 17 02/06/22 14:40 BP 155/88 H 02/06/22 14:40 Pulse Ox 95 02/06/22 14:40 O2 Del Method 02/06/22 14:40 BMI result Body Mass Index 58.1 Vital signs have been reviewed as appeared to be correct. Blood pressure normal. Heart rate normal. Respiration rate normal. Temperature normal. Oxygen saturation normal. Appearance: Alert. Oriented X3. No acute distress. Head: Normal external exam. Normocephalic. Atraumatic. No Reese signs noted. No raccoon eyes noted Eyes: PERRLA. EOMI. Conjunctiva and sclera normal. Eyelids normal. ENT: TM's Normal. Pharynx normal. Uvula midline. Moist mucous membranes. No trismus noted. No drooling noted. No muffled voice noted. Neck: Normal inspection. Neck supple. FROM. No adenopathy. Thyroid Normal. No meningeal signs. No neck mass noted. CVS: Normal heart rate and rhythm. Heart sound normal. No murmurs noted. Pulses normal throughout. Respiratory: No respiratory distress. Painless inspiration. Breath sounds normal. No wheezes/rales/rhonchi noted. Chest nontender. No accessory muscle usage noted or decreased air movement noted. Abdomen: Soft and nontender. Bowel sounds normal in all 4 quadrants. No distention noted. No organomegaly noted. No visible injury noted. Back: No CVA tenderness. Full range of motion noted. Skin: Skin warm and dry. Normal skin color. Normal skin turgor. No rashes/lesions/lacerations noted. Extremities: No lower extremity edema. Extremities exhibit normal range of motion. Extremities nontender. Neuro: Oriented X 3. Cranial nerve exam: II-XII are grossly intact No motor deficit. No sensory deficit. Reflexes normal. Course Course Course Narrative: 51-year-old female history of AFib on Eliquis for anticoagulation yesterday patient felt palpitation with no dizziness no chest pain very subtle feeling of shortness of breath and patient's wrist Watch indicated to the patient that she has atrial fibrillation patient sent by Dr. Cervantes for further workup and cardioversion patient in the emergency department has no indication for emergent cardioversion will admit the patient. Low magnesium will replete magnesium. Rate control with Cardizem. Medical Decision Making Differential Diagnosis Differential Diagnoses: The differential diagnosis associated with the presentation includes Atrial fibrillation/arrhythmia/ACS/electrolyte disturbance/CHF. Admission/Observation Consideration of admission/observation: Escalation of care including admission/o bservation considered Consult Healthcare Provider Management of the patient was discussed with: Hospitalist Lab Data [facility] Lab Attestation statement: I reviewed the patient's lab results. Result Diagrams: 02/06/22 14:59 02/06/22 14:59 Labs: Lab Results 02/06/22 02/06/22 12 Range/Units 14:59 14:59 14:59 WBC 10.3 (4.8-10.8) X10*3/uL RBC 4.91 (4.20-5.50) X10*6/uL Hgb 14.4 (12.0-16.0) g/dl Hct 44.2 (37.0-47.0) % MCV 90.0 (80.0-98.0) fL MCH 29.3 (27.0-33.0) pg MCHC 32.6 (31.0-35.0) g/dl RDW 12.9 (11.0-16.0) % Plt Count 279 (160-400) X10*3/uL MPV 8.7 L (9.4-12.3) fL Immature Gran % (Auto) 0.3 (0.0-0.4) % Neut % (Auto) 71.2 (45-73) % Lymph % (Auto) 19.5 L (20-40) % [place] % (Auto) 5.8 (2-11) % Eos % (Auto) 3.1 (0-4) % Baso % (Auto) 0.1 (0-2) % Lymph # (Auto) 2.0 (1.2-4.9) X10*3/uL [place] # (Auto) 0.6 (0.1-1.2) X10*3/uL Eos # (Auto) 0.3 (0.0-0.4) X10*3/uL Baso # (Auto) 0.0 (0.0-0.2) X10*3/uL Abs Immat Gran (auto) 0.03 (0.00-0.03) X10*3/uL Absolute Neuts (auto) 7.3 (2.0-8.3) x10*3/uL Absolute Nucleated RBC 0.000 (0.0-0.012) X10*3/uL Nucleated RBC % (auto) 0.0 (0.0-0.2) /100WBC PT 15.1 H (10.0-13.1) SEC INR 1.3 H (0.9-1.1) Sodium 139 (135-145) mmol/L Potassium 4.3 (3.3-5.1) mmol/L Chloride 102 (96-108) mmol/L Carbon Dioxide 26 (22-29) mmol/L Anion Gap 15 (12-20) BUN 12 (9-16) mg/dL Creatinine 0.80 (0.5-1.4) mg/dL Estim Creat Clear Calc 133.8 Estimated GFR > 60 Random Glucose 174 H (60-115) mg/dL Calcium 9.8 D (8.4-10.2) mg/dL Magnesium 1.4 L* (1.6-2.6) mg/dL Total Bilirubin 0.5 (0.0-1.0) mg/dL Direct Bilirubin 0.2 (0.0-0.5) mg/dL AST 13 (5-31) U/L ALT 9 (0-31) U/L Alkaline Phosphatase 90 (39-117) U/L Troponin I High Sens (<3.5-17.0) ng/L Total Protein 6.7 (6.5-8.0) g/dL Albumin 4.2 (3.5-5.0) g/dL 02/06/22 Range/Units 14:59 WBC (4.8-10.8) X10*3/uL RBC (4.20-5.50) X10*6/uL Hgb (12.0-16.0) g/dl Hct (37.0-47.0) % MCV (80.0-98.0) fL MCH (27.0-33.0) pg MCHC (31.0-35.0) g/dl RDW (11.0-16.0) % Plt Count (160-400) X10*3/uL MPV (9.4-12.3) fL Immature Gran % (Auto) (0.0-0.4) % Neut % (Auto) (45-73) % Lymph % (Auto) (20-40) % [place] % (Auto) (2-11) % Eos % (Auto) (0-4) % Baso % (Auto) (0-2) % Lymph # (Auto) (1.2-4.9) X10*3/uL [place] # (Auto) (0.1-1.2) X10*3/uL Eos # (Auto) (0.0-0.4) X10*3/uL Baso # (Auto) (0.0-0.2) X10*3/uL Abs Immat Gran (auto) (0.00-0.03) X10*3/uL Absolute Neuts (auto) (2.0-8.3) x10*3/uL Absolute Nucleated RBC (0.0-0.012) X10*3/uL Nucleated RBC % (auto) (0.0-0.2) /100WBC PT (10.0-13.1) SEC INR (0.9-1.1) Sodium (135-145) mmol/L Potassium (3.3-5.1) mmol/L Chloride (96-108) mmol/L Carbon Dioxide (22-29) mmol/L Anion Gap (12-20) BUN (9-16) mg/dL Creatinine (0.5-1.4) mg/dL Estim Creat Clear Calc Estimated GFR Random Glucose (60-115) mg/dL Calcium (8.4-10.2) mg/dL Magnesium (1.6-2.6) mg/dL Total Bilirubin (0.0-1.0) mg/dL Direct Bilirubin (0.0-0.5) mg/dL AST (5-31) U/L ALT (0-31) U/L Alkaline Phosphatase (39-117) U/L Troponin I High Sens < 3.5 (<3.5-17.0) ng/L Total Protein (6.5-8.0) g/dL Albumin (3.5-5.0) g/dL Independent Interpretation I performed an independent interpretation of an: EKG (Atrial flutter with 2:1 av block at rate of 108, otherwise unremarkable intervals.) and Plain X-Ray (No acute pathology.) Radiology Impression Discussion of test interpretation with radiology: I have reviewed the radiologist's reading. Discharge Plan Discharge Clinical Impression: Atrial flutter, Hypomagnesemia Patient Disposition: Admitted As Inpatient Prescriptions: No Action flecainide 100 mg tablet 150 mg PO BID 90 Days Qty: 270 3RF furosemide 20 mg tablet 20 mg PO DAILY Qty: 60 3RF diltiazem HCl 240 mg capsule,extended release 24hr 240 mg PO DAILY Qty: 90 3RF ascorbate calcium (vitamin C) 500 mg tablet 500 mg PO BID Eliquis 5 mg tablet 5 mg PO BID atorvastatin 10 mg tablet 10 mg PO DAILY methimazole 5 mg tablet 5 mg PO .qod glipizide 5 mg tablet extended release 24hr 10 mg PO BID metformin 1,000 mg tablet 1,500 mg PO BID Rx Instructions: 1 tab , 2 tab at night Mounjaro 5 mg/0.5 mL pen injector subcut magnesium oxide 400 mg magnesium capsule 400 mg PO DAILY Januvia 100 mg tablet 100 mg PO DAILY
[2022-02-06 15:29] LABS: Alanine Aminotransferase 9 U/L (0-31); Albumin Level 4.2 g/dL (3.5-5.0); Alkaline Phosphatase 90 U/L (39-117); Anion Gap 15 (12-20); Aspartate Amino Transferase 13 U/L (5-31); Bilirubin Direct 0.2 mg/dL (0.0-0.5); Bilirubin Total 0.5 mg/dL (0.0-1.0); Blood Urea Nitrogen 12 mg/dL (9-16); Calcium 9.8 mg/dL (8.4-10.2); Carbon Dioxide 26 mmol/L (22-29); Chloride 102 mmol/L (96-108); Creatinine Clr Calc Pharmacy 133.8; Estimated Glomerular Filt Rate > 60; Glucose Random 174 mg/dL (60-115); Potassium 4.3 mmol/L (3.3-5.1); Sodium 139 mmol/L (135-145); Total Protein 6.7 g/dL (6.5-8.0)
[2022-02-06 15:33] LABS: Troponin-I High Sensitivity < 3.5 ng/L (<3.5-17.0)
[2022-02-06 15:58] LABS: Magnesium 1.4 mg/dL (1.6-2.6)
[2022-02-06] MEDS: Magnesium Sulfate/H2O 2 GM/50 ML PIGGYBACK IV (16:05)
[2022-02-06] MEDS: dilTIAZem HCL 50 MG/10 ML VIAL 20 MG IVPUSH (16:05)
--- NOTE | 2022-02-06 16:33 | PHA.MEDREC ---
Pharmacy Consult ? Medication Reconciliation Pharmacy has completed the medication reconciliation.
--- NOTE | 2022-02-06 16:40 | ECG_ITS ---
Test Reason : CHEST PAIN Blood Pressure : / mmHG Vent. Rate : 099 BPM Atrial Rate : 227 BPM P-R Int : 000 ms QRS Dur : 092 ms QT Int : 256 ms P-R-T Axes : 245 002 115 degrees QTc Int : 328 ms Atrial flutter with variable A-V block Abnormal ECG When compared with ECG of 06-FEB-2022 14:51, No significant changes seen Referred By: Ana Montemayor Electronically Signed By:NIKKI HENRY
--- NOTE | 2022-02-06 17:20 | PM.IMHP ---
History of Present Illness Date of Service: 02/06/22 Attending physician on admission: Jose Sanderson Chief Complaint: afib,palpatations 51-year-old female-with past medical history of of morbid obesity, diabetes, Graves disease, hyperlipidemia, AFib on flecainide/Cardizem-patient says that since last night she is having palpitations which she noted on her electronic watch and subsequently felt somewhat short of breath and also intermittent palpitation so for that reason she went to the cardiology clinic and subsequently discussed with the artists' booking representative-sent to ED for possible cardioversion in the morning, patient says that her palpitation is slightly better in the ED she received Cardizem IV: Heart rates are improving between 100-110. Denies any new complaint of chest pain or shortness of breath or abdominal pain or fever or chills or nausea or vomiting Denies any cough Denies any weakness or numbness. Lab imaging EKG reviewed: CBC fine, BMP also seems fine, magnesium 1.4. LFTs normal cxr : neg ekg: aflutter with variable degree of av block Review of Systems Review of Systems: As above. [facility] Medical History Diabetes Graves disease Morbid obesity PAF (paroxysmal atrial fibrillation) Family History Father CVD (cardiovascular disease) Heart attack Mother Lung cancer Surgical History H/O knee surgery History of hernia repair S/P removal of left ovary Social History Household Members: None Housing: Apartment Alcohol intake: never Patient Tobacco Use Status: Never used Tobacco Advance Directives: No Advance Directives Information Provided: Yes Current occupational status: unemployed Sexual orientation: Straight/Heterosexual Gender identity: Female Meds Allergies Allergy/AdvReac Type Severity Reaction Status Date / Time No Known Allergies Allergy Verified 02/06/22 14:26 Active Medications: Current Medications Acetaminophen (Acetaminophen 325 Mg Tablet) 650 mg PO DAILY LIS Acetaminophen (Acetaminophen 325 Mg Tablet) 975 mg PO BEDTIME LIS Apixaban (Apixaban 5 Mg Tablet) 5 mg PO BID LIS Ascorbic Acid (Ascorbic Acid 500 Mg Tablet) 500 mg PO DAILY LIS Atorvastatin Calcium (Atorvastatin Calcium 10 Mg Tablet) 10 mg PO DAILY [facility] Furosemide (Furosemide 20 Mg Tablet) 20 mg PO DAILY [facility]; Protocol Glipizide (Glipizide Xl 10 Mg Tab.Er.24) 10 mg PO BID [facility] Magnesium Sulfate (Magnesium Sulfate/H2o) 2 gm in 50 mls @ 25 mls/hr IV ONCE ONE Stop: 02/06/22 17:57 Last Admin: 02/06/22 16:05 Dose: 25 mls/hr Magnesium Oxide (Magnesium Oxide 400 Mg Tablet) 800 mg PO BID [facility] Methimazole (Methimazole 5 Mg Tablet) 5 mg PO Q2D [facility] Pharmacy Consult (Consult Rx Perform Med Rec) 1 each MISCELLANE ONCE PRN PRN Reason: Consult order Sodium Chloride (0.9 % Sodium Chloride Flush 3 Ml Syringe) 3 ml IVFLUSH QSHIFT [facility] Vitamin D (Cholecalciferol (Vitamin D3) 25 Mcg Tablet) 25 mcg PO DAILY [facility] Home Medications Medication Instructions Recorded Confirmed Last Taken Type apixaban 5 mg tablet 5 mg PO BID 12/08/19 02/06/22 02/06/22 History atorvastatin 10 mg tablet 10 mg PO DAILY 12/08/19 02/06/22 02/06/22 History methimazole 5 mg tablet 5 mg PO Q2D 10/23/20 02/06/22 02/06/22 History glipizide 5 mg tablet, extended 10 mg PO BID 01/03/21 02/06/22 02/06/22 History release 24 hr magnesium oxide 400 mg PO DAILY 01/09/22 02/06/22 02/06/22 History tirzepatide 5 mg/0.5 mL 5 mg subcut LEZAMA 01/09/22 02/06/22 02/03/22 History subcutaneous pen injector (Mounjaro) acetaminophen 325 mg tablet 650 mg PO DAILY 02/06/22 02/06/22 02/06/22 History acetaminophen 500 mg tablet 1,000 mg PO BEDTIME 02/06/22 02/06/22 02/05/22 History ascorbic acid (vitamin C) 500 mg 500 mg PO DAILY 02/06/22 02/06/22 02/06/22 History tablet (Vitamin C) cholecalciferol (vitamin D3) 25 25 mcg PO DAILY 02/06/22 02/06/22 02/06/22 History mcg (1,000 unit) tablet (Vitamin D3) diltiazem HCl 240 mg 240 mg PO BEDTIME 02/06/22 02/06/22 02/05/22 History capsule,extended release 24 hr metformin 500 mg tablet 1,000 mg PO DAILY@1800 02/06/22 02/06/22 02/05/22 History metformin 500 mg tablet 500 mg PO DAILY 02/06/22 02/06/22 02/06/22 History Physical Exam Vital Signs and Narrative: Vital Signs: Last Vital Signs Temp 96.6 F L 02/06/22 14:40 Pulse 107 H 02/06/22 14:40 Resp 17 02/06/22 14:40 BP 155/88 H 02/06/22 14:40 Pulse Ox 95 02/06/22 14:40 O2 Del Method 02/06/22 14:40 BMI result Body Mass Index 58.1 Appearance: Alert.? Oriented X3.? not in distress.? Eyes: Pupils equal, round and reactive to light.? Sclera nonicteric.? ENT: Pharynx normal.? Moist mucous membranes. cvs: irregular rythem, [id number] . res: clear to auscultation ,no rhonchii or wheezing abd: no rebound or guarding ,nt, bs present. ext pulses present , no cyanosis. neuro: axo3 , nonfocal. Results Labs CBC and Chem 7: 02/06/22 14:59 02/06/22 14:59 Labs: Laboratory Results - last 24 hr 02/06/22 02/06/22 02/06/22 14:59 14:59 14:59 MCV 90.0 MCH 29.3 MCHC 32.6 RDW 12.9 Plt Count 279 MPV 8.7 L Immature Gran % (Auto) 0.3 Neut % (Auto) 71.2 Lymph % (Auto) 19.5 L Esmer[place]da % (Auto) 5.8 Eos % (Auto) 3.1 Baso % (Auto) 0.1 Lymph # (Auto) 2.0 [place]mer[place] # (Auto) 0.6 Eos # (Auto) 0.3 Baso # (Auto) 0.0 Abs Immat Gran (auto) 0.03 Absolute Neuts (auto) 7.3 Absolute Nucleated RBC 0.000 Nucleated RBC % (auto) 0.0 PT 15.1 H INR 1.3 H Anion Gap 15 Estim Creat Clear Calc 133.8 Estimated GFR > 60 Random Glucose 174 H Calcium 9.8 D Magnesium 1.4 L* Total Bilirubin 0.5 Direct Bilirubin 0.2 AST 13 ALT 9 Alkaline Phosphatase 90 Troponin I High Sens Total Protein 6.7 Albumin 4.2 02/06/22 14:59 MCV MCH MCHC RDW Plt Count MPV Immature Gran % (Auto) Neut % (Auto) Lymph % (Auto) [place] % (Auto) Eos % (Auto) Baso % (Auto) Lymph # (Auto) [place] # (Auto) Eos # (Auto) Baso # (Auto) Abs Immat Gran (auto) Absolute Neuts (auto) Absolute Nucleated RBC Nucleated RBC % (auto) PT INR Anion Gap Estim Creat Clear Calc Estimated GFR Random Glucose Calcium Magnesium Total Bilirubin Direct Bilirubin AST ALT Alkaline Phosphatase Troponin I High Sens < 3.5 Total Protein Albumin ECG Attestation: I personally reviewed and interpreted this ECG as follows: (ekg: aflutter with variable degree of av block) Imaging Radiologist's Impressions: Impressions Chest X-Ray 02/06/22 16:40 IMPRESSION: No acute pulmonary process. Assessment and Plan (1) Hypomagnesemia: Status: Acute (2) Atrial flutter: Status: Acute (3) Morbid obesity: Status: Acute (4) Diabetes: Status: Acute (5) PAF (paroxysmal atrial fibrillation): Status: Acute Plan 51-year-old female-with past medical history of of morbid obesity, diabetes, Graves disease, hyperlipidemia, AFib on flecainide/Cardizem. 1. A flutter with variable degree of AV block Still has palpitations Ventricular rate between 110-120 Started Cardizem drip, hold p.o. medications Continue Eliquis uninterrupted. Troponin x1 negative Echo Cardiology evaluation for possible cardioversion in the morning. 2. Diabetes: Controlled Fingersticks with sliding scale coverage. 3. Graves disease: Continue methimazole. 4.HLP: Continue statin. 5. Morbid obesity: Encouraged to lose weight. DVT prophylaxis: On Eliquis Above management discussed with patient in detail and she understand in agreement with the plan, time spent 70 minute, patient full code. Considering symptomatic atrial flutter-likely need cardioversion,iv cardizem and tele monitoring-patient will benefit from 2 midnight stays. Time Spent With Patient Time: Total time managing care of this patient today ____ minutes. Quality Stroke Does the patient have a stroke diagnosis?: No VTE Prior VTE?: No VTE Risk Level:: Medical - moderate - high VTE Device Contraindication: N/A - Device Ordered VTE Drug Contraindication: N/A - Med Ordered
[2022-02-06 17:25] LABS: COVID-19 Test Negative (Negative); IDNOW Serial# 16C4AD1C
[2022-02-06 18:03] VITALS: BP 138/86; PULSE 106; RESP 15; O2SAT 96
--- NOTE | 2022-02-06 18:37 | PC.NURSE ---
patient alert, confused at baseline. hypoxic on room air into the 80s, placed on 2L nasal cannula. N/V, given zofran with + outcome. denies pain. able to make needs known.
--- NOTE | 2022-02-06 18:40 | PC.NURSE ---
patient alert, oriented x3. VSS. ambulates with stable gait. denies CP. able to make needs known, call castro within reach
[2022-02-06 18:52] LABS: Troponin-I High Sensitivity < 3.5 ng/L (<3.5-17.0)
[2022-02-06 19:57] VITALS: BP 133/79; PULSE 116; RESP 13; TEMP 36.9; O2SAT 96
[2022-02-06] MEDS: Apixaban 5 MG TABLET PO (20:30)
[2022-02-06] MEDS: Acetaminophen 325 MG TABLET 650 MG PO (20:31)
[2022-02-06] MEDS: Magnesium Oxide 400 MG TABLET 800 MG PO (20:31)
[2022-02-06 20:34] LABS: Glucose, Whole Blood 110 mg/dL (60-115)
[2022-02-06] MEDS: glipiZIDE XL 10 MG TAB.ER.24 PO (20:58)
[2022-02-06] MEDS: Acetaminophen 325 MG TABLET 975 MG PO (20:59)
--- NOTE | 2022-02-06 21:35 | PC.NURSE ---
Care of patient assumed in ED Overflow. She is alert, oriented x4, and ambulatory with steady gait. She presents from her PCP office found to be in a new a.flutter. She has a history of AFIB (on eliquis). She is asymptomatic, denies chest pain or discomfort, denies palpitations. Troponins negative in ED. Continuous telemetry in place. HR remains A.FLUTTER 1teens with stable BPs and no chest pain. Patient provided with call castro and informed of its use. She understands plan for admission for cardiology workup, including an echo.
--- NOTE | 2022-02-06 23:01 | PC.NURSE ---
This RN notices an order for cardizem drip from 5:30pm that wasn't started- not mentioned in passoff. This RN confirms with MD Barber who would like drip started now. HR remains a.flutter 100-1teens, patient denies chest pain or palpitations. Per MD Barber, initiate drip now.
[2022-02-06] MEDS: dilTIAZem HCL 125 MG in 0.9 % Sodium Chloride 100 ML IVCONT (23:50)
[2022-02-06] MEDS: 0.9 % Sodium Chloride Flush 3 ML SYRINGE IVFLUSH (23:50)
[2022-02-06 23:54] VITALS: BP 140/80; PULSE 115; RESP 19; O2SAT 94
[2022-02-07] VITALS (8 sets, daily range): BP systolic 96–124; BP diastolic 63–84; PULSE 89–119; RESP 15–24; TEMP 36.2–36.6; O2SAT 93–99
[2022-02-07 04:48] LABS: MANUAL DIFF FLAG NO
[2022-02-07 04:49] LABS: Basophils Percent Auto 0.1 % (0-2); Eosinophils Absolute Auto 0.3 X10*3/uL (0.0-0.4); Eosinophils Percent Auto 3.6 % (0-4); Hematocrit 41.2 % (37.0-47.0); Hemoglobin 13.4 g/dl (12.0-16.0); Imm Gran Abs Auto 0.03 X10*3/uL (0.00-0.03); Imm Gran Pct Auto 0.3 % (0.0-0.4); Lymphocytes Absolute Auto 2.7 X10*3/uL (1.2-4.9); Lymphocytes Percent Auto 30.7 % (20-40); Mean Corpuscular HGB Conc 32.5 g/dl (31.0-35.0); Mean Corpuscular Hemoglobin 29.8 pg (27.0-33.0); Mean Corpuscular Volume 91.6 fL (80.0-98.0); Mean Platelet Volume 8.8 fL (9.4-12.3); Monocytes Absolute Auto 0.6 X10*3/uL (0.1-1.2); Neutrophils Absolute Auto 5.2 x10*3/uL (2.0-8.3); Neutrophils Percent Auto 58.3 % (45-73); Platelet Count 258 X10*3/uL (160-400); Red Cell Distribution Width 13.1 % (11.0-16.0); White Blood Count 8.9 X10*3/uL (4.8-10.8)
[2022-02-07 05:18] LABS: Anion Gap 14 (12-20); Blood Urea Nitrogen 11 mg/dL (9-16); Calcium 9.3 mg/dL (8.4-10.2); Carbon Dioxide 24 mmol/L (22-29); Chloride 106 mmol/L (96-108); Creatinine Clr Calc Pharmacy 152.9; Estimated Glomerular Filt Rate > 60; Glucose Random 99 mg/dL (60-115); Potassium 3.6 mmol/L (3.3-5.1); Sodium 140 mmol/L (135-145)
--- NOTE | 2022-02-07 07:00 | CA_ITS ---
Transthoracic Echocardiogram Patient (Last, First, Middle): Corazon Cortez A Gender: Female Date of : 1970 Age: 51 Procedure Date: 02/07/2022 Procedure Type: Transthoracic Echocardiogram Location: ER Height: 170.18 cm Weight: 168.29 kg BSA: 2.63 m2 Heart Rate: 110 bpm BP: 124 / 84 mmHg Medical Record Retrieval Specialist: APOLLO Referring MD: Jose Sanderson MD Symptoms: aflutter Study Quality: Poor/Contrast ECG Rhythm: Atrial flutter Conclusions: - The left ventricular systolic function is normal. The visually estimated ejection fraction is between 60-65%. - No obvious valvular pathology seen on this study. Findings Procedure Information Contrast agent, definity, is being given per protocol without apparent complications. Left Ventricle Normal left ventricular cavity size. There is mildly increased left ventricular wall thickness. The left ventricular systolic function is normal. The visually estimated ejection fraction is between 60-65%. The calculated ejection fraction is 60% by biplane method. There is no evidence of regional wall motion abnormalities. Diastolic function is indeterminate on the basis of available data. Right Ventricle Normal right ventricular cavity size and systolic function. Atria Both atria are normal in size. Aortic Valve The aortic valve was not well visualized. There is no aortic valve stenosis. There is no aortic valve regurgitation. Mitral Valve There is mild mitral annular calcification. There is no mitral valve regurgitation. There is no mitral valve stenosis. Pulmonic Valve The pulmonic valve is likely normal. Tricuspid Valve There is trace tricuspid valve regurgitation. Tricuspid regurgitation envelope is inadequate for calculation of right ventricular systolic pressure. Great Vessels The asc aorta is normal in size. Venous The inferior vena cava is normal in size and collapses greater than 50% with inspiration. Pericardium/Pleural Prominent epicardial adipose tissue noted. There is no evidence of pericardial effusion. Prior Study Comparison No significant change compared to prior study dated: 02/07/2021. Recommendations, Care & Conclusions No obvious valvular pathology seen on this study. Measurements 2D Linear Measurements IVSd: 1.06 0.6-0.9/0.6-1.0 cm LVIDd: 4.57 3.9-5.3/4.2-5.9 cm LVIDd Index: 1.74 2.4-3.2/2.2-3.1 cm/m2 LVIDs: 3.52 2.0-3.6 cm LVPWd: 1.06 0.7-1.1 cm LA Diam: 3.70 2.7-3.8/3.0-4.0 cm LAIDs Index: 1.41 1.5-2.3 cm/m2 LV Mass: 212.13 67-162/88-224 g LV Mass Index: 80.66 43-95/49-115 g/m2 LVOT Diam: 2.30 3.0+(-)1.3 cm 2D Systolic Function EF 4C: 66.50 >55% EF 2C: 51.10 >55% EF BiP: 59.50 >55% Mitral Valve E'Lateral: 16.40 E'Medial: 12.50 Aortic Valve AoV Pk Sheng: 1.03 AoV Mn Shneg: 0.76 AoV VTI: 0.17 AoV Pk Grad: 4.00 Aov Mn Grad: 3.00 ANISA Cont.VTI: 3.23 LVOT LVOT Pk Sheng: 0.87 LVOT Mn Sheng: 0.61 LVOT VTI: 0.13 LVOT Pk Grad: 3.00 LVOT Mn Grad: 2.00 LVOT Diam: 2.30 LVOT Area: 4.15 Diastolic Function E'Medial: 12.50 E' Laterial: 16.40 Right Ventricle TAPSE (mm): 22.40 TVS' Sheng: 10.10 Tricuspid Valve RA Press: 3.00 Great Vessels Aorta Sinus of Valsalva: 3.60 2.0-3.5 cm Ao Asc: 3.30 2.1-3.4 cm Pulmonary Valve PV Pk Sheng: 0.87 Peak PV Grad: 3.00 Updated in Other Vendor System with Status of Final Marcel Lincoln MD electronically signed on 02/07/2022 3:11:53 PM with status of Final
[2022-02-07 07:28] LABS: Glucose, Whole Blood 121 mg/dL (60-115)
--- NOTE | 2022-02-07 08:02 | ECG_ITS ---
Test Reason : chest pain Blood Pressure : / mmHG Vent. Rate : 111 BPM Atrial Rate : 242 BPM P-R Int : 000 ms QRS Dur : 090 ms QT Int : 384 ms P-R-T Axes : 088 008 209 degrees QTc Int : 522 ms Atrial flutter with variable A-V block Low voltage QRS Nonspecific ST and T wave abnormality Prolonged QT Abnormal ECG When compared with ECG of 06-FEB-2022 16:40, No significant changes seen Referred By: Nikki Henry Electronically Signed By:NIKKI HENRY
[2022-02-07] MEDS: Atorvastatin Calcium 10 MG TABLET PO (08:45)
[2022-02-07] MEDS: Cholecalciferol (Vitamin D3) 25 MCG TABLET PO (08:45)
[2022-02-07] MEDS: Apixaban 5 MG TABLET PO (08:45)
[2022-02-07] MEDS: Magnesium Oxide 400 MG TABLET 800 MG PO (08:46)
[2022-02-07] MEDS: Ascorbic Acid 500 MG TABLET PO (08:46)
[2022-02-07] MEDS: Furosemide 20 MG TABLET PO (08:46)
[2022-02-07] MEDS: glipiZIDE XL 10 MG TAB.ER.24 PO (08:46)
[2022-02-07 09:16] LABS: Magnesium 1.9 mg/dL (1.6-2.6)
--- NOTE | 2022-02-07 11:09 | P.CONCA_ITS ---
History of Present Illness History of Present Illness Date of Service: 02/07/22 Chief complaint: Afib Narrative: This is a cardiology consultation regarding atrial flutter. Patient of Dr. Cervantes. Has a history of paroxysmal atrial fibrillation. She is maintained on Cardizem as well as flecainide. Has morbid obesity. History of hyperthyroidism on methimazole. She has had a couple of cardioversions in the past but nothing in the last few months. She has morbid obesity. Also has obstructive sleep apnea per her but does not use the CPAP machine regularly. This time, she has had palpitations for couple of days that prompted this admission. She was seen in the office and then sent to the ER and admitted. She remains in atrial flutter with rapid rate and on a Cardizem drip. Review of Systems Review of Systems: Yes all other systems are reviewed and are negative Constitutional: Constitutional: Reports as per HPI Eyes: Eyes: Reports as per HPI ENT: Reports as per HPI Cardiovascular: Cardiovascular: Reports as per HPI, Denies acrocyanosis, Denies cool extremities, Denies chest pain, Denies leg edema, Denies lightheadedness, Reports palpitations and Denies dyspnea Respiratory: Respiratory: Reports as per HPI, Reports no additional respiratory complaints and Denies dyspnea Gastrointestinal: Gastrointestinal: Reports as per HPI and Reports no additional gastrointestinal complaints Genitourinary: Genitourinary: Reports as per HPI Musculoskeletal: Musculoskeletal: Reports no additional musculoskeletal complaints and Reports as per HPI Integumentary/Breasts: Skin/Breast: Reports system reviewed and no additional complaints, except as docu Neurologic: Reports system reviewed and no additional complaints, except as documented and Reports as per HPI Psychiatric: Psychiatric: Reports no additional psychiatric complaints and Reports as per HPI Endocrine: Endocrine: Reports no additional endocrine complaints, Reports as per HPI and Reports palpitations Hematologic/Lymphatic: Hematologic/Lymphatic: Reports no additional hematologi c/lymphatic complaints and Reports as per HPI Allergic/Immunologic: Allergic/Immunologic: Reports no additional allergic/immunologic complaints and Reports as per HPI PMF Past Medical History Medical History Diabetes Graves disease Morbid obesity PAF (paroxysmal atrial fibrillation) Family History Family History Father CVD (cardiovascular disease) Heart attack Mother Lung cancer Surgical History Surgical History H/O knee surgery History of hernia repair S/P removal of left ovary Social History Social History Household Members: None Housing: Apartment Alcohol intake: never Patient Tobacco Use Status: Never used Tobacco Advance Directives: No Advance Directives Information Provided: Yes Current occupational status: unemployed Sexual orientation: Straight/Heterosexual Gender identity: Female Meds Allergies Allergy/AdvReac Type Severity Reaction Status Date / Time No Known Allergies Allergy Verified 02/06/22 14:26 Active Medications: Current Medications Acetaminophen (Acetaminophen 325 Mg Tablet) 650 mg PO DAILY [facility] Last Admin: 02/06/22 20:31 Dose: 650 mg Acetaminophen (Acetaminophen 325 Mg Tablet) 975 mg PO BEDTIME [facility] Last Admin: 02/06/22 20:59 Dose: 975 mg Apixaban (Apixaban 5 Mg Tablet) 5 mg PO BID [facility] Last Admin: 02/07/22 08:45 Dose: 5 mg Ascorbic Acid (Ascorbic Acid 500 Mg Tablet) 500 mg PO DAILY [facility] Last Admin: 02/07/22 08:46 Dose: 500 mg Atorvastatin Calcium (Atorvastatin Calcium 10 Mg Tablet) 10 mg PO DAILY [facility] Last Admin: 02/07/22 08:45 Dose: 10 mg Dextrose (Dextrose 50 % 25 Gm/50 Ml Syringe) 25 gm IVPUSH Q15M PRN; Protocol PRN Reason: per Hypoglycemia Standing Ord. Furosemide (Furosemide 20 Mg Tablet) 20 mg PO DAILY [facility]; Protocol Last Admin: 02/07/22 08:46 Dose: 20 mg Glipizide (Glipizide Xl 10 Mg Tab.Er.24) 10 mg PO BID [facility] Last Admin: 02/07/22 08:46 Dose: 10 mg Glucose (Glucose Gel 15 Gm Gel..Gram.) 15 gm PO Q15M PRN; Protocol PRN Reason: per Hypoglycemia Standing Ord. Diltiazem HCl 125 mg/ Sodium (Chloride) 125 mls @ 0 mls/hr IVCONT .Q0M [facility]; Protocol Last Admin: 02/06/22 23:50 Dose: 5 mg/hr, 5 mls/hr Insulin Human Lispro (Insulin Lispro 100 Unit/Ml 3 Ml Vial) 0 unit SUBCUT QIDACHS [facility]; Protocol Last Admin: 02/07/22 07:40 Dose: Not Given Magnesium Oxide (Magnesium Oxide 400 Mg Tablet) 800 mg PO BID [facility] Last Admin: 02/07/22 08:46 Dose: 800 mg Methimazole (Methimazole 5 Mg Tablet) 5 mg PO Q2D [facility] Pharmacy Consult (Consult Rx Perform Med Rec) 1 each MISCELLANE ONCE PRN PRN Reason: Consult order Sodium Chloride (0.9 % Sodium Chloride Flush 3 Ml Syringe) 3 ml IVFLUSH QSHIFT [facility] Last Admin: 02/07/22 08:46 Dose: Not Given Vitamin D (Cholecalciferol (Vitamin D3) 25 Mcg Tablet) 25 mcg PO DAILY [facility] Last Admin: 02/07/22 08:45 Dose: 25 mcg Home Medications Medication Instructions Recorded Confirmed Last Taken Type apixaban 5 mg tablet 5 mg PO BID 12/08/19 02/06/22 02/06/22 History atorvastatin 10 mg tablet 10 mg PO DAILY 12/08/19 02/06/22 02/06/22 History methimazole 5 mg tablet 5 mg PO Q2D 10/23/20 02/06/22 02/06/22 History glipizide 5 mg tablet, extended 10 mg PO BID 01/03/21 02/06/22 02/06/22 History release 24 hr magnesium oxide 400 mg PO DAILY 01/09/22 02/06/22 02/06/22 History tirzepatide 5 mg/0.5 mL 5 mg subcut LEZAMA 01/09/22 02/06/22 02/03/22 History subcutaneous pen injector (Mounjaro) acetaminophen 325 mg tablet 650 mg PO DAILY 02/06/22 02/06/22 02/06/22 History acetaminophen 500 mg tablet 1,000 mg PO BEDTIME 02/06/22 02/06/22 02/05/22 History ascorbic acid (vitamin C) 500 mg 500 mg PO DAILY 02/06/22 02/06/22 02/06/22 History tablet (Vitamin C) cholecalciferol (vitamin D3) 25 25 mcg PO DAILY 02/06/22 02/06/22 02/06/22 History mcg (1,000 unit) tablet (Vitamin D3) diltiazem HCl 240 mg 240 mg PO BEDTIME 02/06/22 02/06/22 02/05/22 History capsule,extended release 24 hr metformin 500 mg tablet 1,000 mg PO DAILY@1800 02/06/22 02/06/22 02/05/22 History metformin 500 mg tablet 500 mg PO DAILY 02/06/22 02/06/22 02/06/22 History Physical Exam Vital Signs: Vital Signs: Last Vital Signs Temp 97.9 F 02/07/22 04:44 Pulse 119 H 02/07/22 07:17 Resp 15 02/07/22 07:17 BP 124/84 02/07/22 07:17 Pulse Ox 93 02/07/22 07:17 O2 Del Method 02/07/22 07:17 BMI result Body Mass Index 58.1 Const: General: comfortable and no acute distress Orientation/consciousness: patient oriented x3 HEENT: Other: Unremarkable Head: Yes normal to inspection Neck: Neck: Yes normal visual inspection Chest: Chest palpation & inspection: normal inspection of the chest Resp: Auscultation: clear to auscultation bilaterally Cardio: Palpation: normal PMI Heart sounds: S1 normal heart sound present, S2 normal heart sound present, no gallops, no murmurs and no rubs GI: Palpation (GI): Soft to palpation Back/Spine/Pelvis: Other: unremarkable Skin: General skin exam: no rashes or lesions noted Neuro: General: patient oriented x3 Extrem: General: Yes normal to inspection Psych: Mental Status: mental status grossly normal Objective Labs and Meds Result diagrams: 02/07/22 04:35 02/07/22 04:35 Lab results: Laboratory Results - last 24 hr 02/06/22 02/06/22 02/06/22 14:59 14:59 14:59 WBC 10.3 RBC 4.91 Hgb 14.4 Hct 44.2 MCV 90.0 MCH 29.3 MCHC 32.6 RDW 12.9 Plt Count 279 MPV 8.7 L Immature Gran % (Auto) 0.3 Neut % (Auto) 71.2 Lymph % (Auto) 19.5 L [place] % (Auto) 5.8 Eos % (Auto) 3.1 Baso % (Auto) 0.1 Lymph # (Auto) 2.0 [place] # (Auto) 0.6 Eos # (Auto) 0.3 Baso # (Auto) 0.0 Abs Immat Gran (auto) 0.03 Absolute Neuts (auto) 7.3 Absolute Nucleated RBC 0.000 Nucleated RBC % (auto) 0.0 PT 15.1 H INR 1.3 H Sodium 139 Potassium 4.3 Chloride 102 Carbon Dioxide 26 Anion Gap 15 BUN 12 Creatinine 0.80 Estim Creat Clear Calc 133.8 Estimated GFR > 60 POC Glucose Random Glucose 174 H Calcium 9.8 D Magnesium 1.4 L* Total Bilirubin 0.5 Direct Bilirubin 0.2 AST 13 ALT 9 Alkaline Phosphatase 90 Troponin I High Sens Total Protein 6.7 Albumin 4.2 COVID-19 (MONIK) COVID-19 Clin Com 02/06/22 02/06/22 02/06/22 14:59 17:02 18:24 WBC RBC Hgb Hct MCV MCH MCHC RDW Plt Count MPV Immature Gran % (Auto) Neut % (Auto) Lymph % (Auto) [place] % (Auto) Eos % (Auto) Baso % (Auto) Lymph # (Auto) [place] # (Auto) Eos # (Auto) Baso # (Auto) Abs Immat Gran (auto) Absolute Neuts (auto) Absolute Nucleated RBC Nucleated RBC % (auto) PT INR Sodium Potassium Chloride Carbon Dioxide Anion Gap BUN Creatinine Estim Creat Clear Calc Estimated GFR POC Glucose Random Glucose Calcium Magnesium Total Bilirubin Direct Bilirubin AST ALT Alkaline Phosphatase Troponin I High Sens < 3.5 < 3.5 Total Protein Albumin COVID-19 (MONIK) Negative COVID-19 Clin Com See Note 02/06/22 02/07/22 02/07/22 20:26 04:35 04:35 WBC 8.9 RBC 4.50 Hgb 13.4 Hct 41.2 MCV 91.6 MCH 29.8 MCHC 32.5 RDW 13.1 Plt Count 258 MPV 8.8 L Immature Gran % (Auto) 0.3 Neut % (Auto) 58.3 Lymph % (Auto) 30.7 [place] % (Auto) 7.0 Eos % (Auto) 3.6 Baso % (Auto) 0.1 Lymph # (Auto) 2.7 [place] # (Auto) 0.6 Eos # (Auto) 0.3 Baso # (Auto) 0.0 Abs Immat Gran (auto) 0.03 Absolute Neuts (auto) 5.2 Absolute Nucleated RBC 0.000 Nucleated RBC % (auto) 0.0 PT INR Sodium 140 Potassium 3.6 Chloride 106 Carbon Dioxide 24 Anion Gap 14 BUN 11 Creatinine 0.70 Estim Creat Clear Calc 152.9 Estimated GFR > 60 POC Glucose 110 Random Glucose 99 Calcium 9.3 Magnesium 1.9 Total Bilirubin Direct Bilirubin AST ALT Alkaline Phosphatase Troponin I High Sens Total Protein Albumin COVID-19 (MONIK) COVID-19 Clin Com 02/07/22 07:15 WBC RBC Hgb Hct MCV MCH MCHC RDW Plt Count MPV Immature Gran % (Auto) Neut % (Auto) Lymph % (Auto) [place] % (Auto) Eos % (Auto) Baso % (Auto) Lymph # (Auto) [place] # (Auto) Eos # (Auto) Baso # (Auto) Abs Immat Gran (auto) Absolute Neuts (auto) Absolute Nucleated RBC Nucleated RBC % (auto) PT INR Sodium Potassium Chloride Carbon Dioxide Anion Gap BUN Creatinine Estim Creat Clear Calc Estimated GFR POC Glucose 121 H Random Glucose Calcium Magnesium Total Bilirubin Direct Bilirubin AST ALT Alkaline Phosphatase Troponin I High Sens Total Protein Albumin COVID-19 (MONIK) COVID-19 Clin Com ECG Interpretation: EKG with atrial flutter at a rate of 111/Min. Nonspecific ST-T changes. Imaging Radiologist's impression: Impressions Chest X-Ray 02/06/22 16:40 IMPRESSION: No acute pulmonary process. Assessment and Plan (1) Atrial flutter with rapid ventricular response: Status: Acute (2) Morbid obesity: Status: Acute (3) Graves disease: Status: Acute Plan Patient remains in atrial flutter with rapid rate. She is on IV Cardizem drip. She is highly symptomatic with palpitations. Hence we will plan on cardioversion. It seems she has taken anticoagulation at least for the last few weeks without any interruptions. Post cardioversion, she can continue diltiazem but we will probably stop the flecainide as she already remains on high-dose and use rather something like Multaq. She still remains at high risk for recurrence especially due to weight as well as irregular CPAP use for sleep apnea. I did discuss these with her. Her thyroid is also other issue. These will need to be addressed eventually as an outpatient. Consider weight loss surgery as well. Time Spent With Patient Time: Total time managing care of this patient today ____ minutes. Procedures Date of Service Date of Service: 02/07/22
--- NOTE | 2022-02-07 11:16 | P.PNCAR_ITS ---
Cardioversion Procedure Note Cardioversion Date of Procedure: 02/07/2022 Ordering Provider: Performing Provider: Indication for Procedure: Atrial flutter with rapid rate Pre-Op Diagnosis: Atrial flutter Post-Op Diagnosis: Sinus rhythm History: See consultation Consent: Informed consent obtained. Procedure: After informed consent was obtained, patient was taken to the PACU. The patient was then positioned appropriately. The cardioversion pads were placed in anteroposterior position. Once under anesthesia, 120 joules of synchronized shock was administered. The rhythm converted from atrial flutter to sinus rhythm. Patient remained in sinus rhythm after the end of procedure. Complications: None Impression: Successful cardioversion from atrial flutter to sinus. Recommendations: Will d/w primary fastener technologist. Continue diltiazem, flecainide without changes.
--- NOTE | 2022-02-07 11:16 | MHC.SHP ---
Pre-Procedural Eval Section A Date of Service: 02/07/22 The patient is an INPATIENT: Yes Section B Chief Complaint: Afib Allergies: Allergies Allergy/AdvReac Type Severity Reaction Status Date / Time No Known Allergies Allergy Verified 02/06/22 14:26 Plan I have reviewed the history and physical and performed a pertinent physical examination on my patient. No changes have occurred unless specified. Time Spent With Patient Time: Total time managing care of this patient today ____ minutes.
--- NOTE | 2022-02-07 11:22 | PC.NURSE ---
pt off unit to [facility] to be cardioverted
--- NOTE | 2022-02-07 11:51 | HO.ANESPROP2 ---
[facility] Active Problems Active Problems: All Active Problems (Updated 02/07/22 @ 11:12 by Marcel Lincoln MD) Atrial flutter with rapid ventricular response (Acute) Hypomagnesemia (Acute) Atrial flutter (Acute) Peripheral edema (Acute) Morbid obesity (Acute) Graves disease (Acute) Diabetes (Acute) PAF (paroxysmal atrial fibrillation) (Acute) Past Medical History Medical History Diabetes Graves disease Morbid obesity PAF (paroxysmal atrial fibrillation) Family History Family History Father CVD (cardiovascular disease) Heart attack Mother Lung cancer Family history of problems with anesthesia: No Surgical History Surgical History H/O knee surgery History of hernia repair S/P removal of left ovary History of Problems with Anesthesia: No Social History Social History Household Members: None Housing: Apartment Alcohol intake: never Patient Tobacco Use Status: Never used Tobacco Use of substances other than those prescribed or required for medical reasons: No Are you DNR?: No Advance Directives: No Advance Directives Information Provided: Yes Current occupational status: unemployed Sexual orientation: Straight/Heterosexual Gender identity: Female Meds Allergies Allergy/AdvReac Type Severity Reaction Status Date / Time No Known Allergies Allergy Verified 02/06/22 14:26 Active Medications: Current Medications Acetaminophen (Acetaminophen 325 Mg Tablet) 650 mg PO DAILY [facility] Last Admin: 02/06/22 20:31 Dose: 650 mg Acetaminophen (Acetaminophen 325 Mg Tablet) 975 mg PO BEDTIME [facility] Last Admin: 02/06/22 20:59 Dose: 975 mg Apixaban (Apixaban 5 Mg Tablet) 5 mg PO BID [facility] Last Admin: 02/07/22 08:45 Dose: 5 mg Ascorbic Acid (Ascorbic Acid 500 Mg Tablet) 500 mg PO DAILY [facility] Last Admin: 02/07/22 08:46 Dose: 500 mg Atorvastatin Calcium (Atorvastatin Calcium 10 Mg Tablet) 10 mg PO DAILY [facility] Last Admin: 02/07/22 08:45 Dose: 10 mg Dextrose (Dextrose 50 % 25 Gm/50 Ml Syringe) 25 gm IVPUSH Q15M PRN; Protocol PRN Reason: per Hypoglycemia Standing Ord. Furosemide (Furosemide 20 Mg Tablet) 20 mg PO DAILY [facility]; Protocol Last Admin: 02/07/22 08:46 Dose: 20 mg Glipizide (Glipizide Xl 10 Mg Tab.Er.24) 10 mg PO BID [facility] Last Admin: 02/07/22 08:46 Dose: 10 mg Glucose (Glucose Gel 15 Gm Gel..Gram.) 15 gm PO Q15M PRN; Protocol PRN Reason: per Hypoglycemia Standing Ord. Diltiazem HCl 125 mg/ Sodium (Chloride) 125 mls @ 0 mls/hr IVCONT .Q0M [facility]; Protocol Last Admin: 02/06/22 23:50 Dose: 5 mg/hr, 5 mls/hr Insulin Human Lispro (Insulin Lispro 100 Unit/Ml 3 Ml Vial) 0 unit SUBCUT QIDACHS [facility]; Protocol Last Admin: 02/07/22 07:40 Dose: Not Given Magnesium Oxide (Magnesium Oxide 400 Mg Tablet) 800 mg PO BID [facility] Last Admin: 02/07/22 08:46 Dose: 800 mg Methimazole (Methimazole 5 Mg Tablet) 5 mg PO Q2D [facility] Pharmacy Consult (Consult Rx Perform Med Rec) 1 each MISCELLANE ONCE PRN PRN Reason: Consult order Sodium Chloride (0.9 % Sodium Chloride Flush 3 Ml Syringe) 3 ml IVFLUSH QSHIFT [facility] Last Admin: 02/07/22 08:46 Dose: Not Given Vitamin D (Cholecalciferol (Vitamin D3) 25 Mcg Tablet) 25 mcg PO DAILY [facility] Last Admin: 02/07/22 08:45 Dose: 25 mcg Home Medications Medication Instructions Recorded Confirmed Last Taken Type apixaban 5 mg tablet 5 mg PO BID 12/08/19 02/06/22 02/06/22 History atorvastatin 10 mg tablet 10 mg PO DAILY 12/08/19 02/06/22 02/06/22 History methimazole 5 mg tablet 5 mg PO Q2D 10/23/20 02/06/22 02/06/22 History glipizide 5 mg tablet, extended 10 mg PO BID 01/03/21 02/06/22 02/06/22 History release 24 hr magnesium oxide 400 mg PO DAILY 01/09/22 02/06/22 02/06/22 History tirzepatide 5 mg/0.5 mL 5 mg subcut LEZAMA 01/09/22 02/06/22 02/03/22 History subcutaneous pen injector (Mounvignesh) acetaminophen 325 mg tablet 650 mg PO DAILY 02/06/22 02/06/22 02/06/22 History acetaminophen 500 mg tablet 1,000 mg PO BEDTIME 02/06/22 02/06/22 02/05/22 History ascorbic acid (vitamin C) 500 mg 500 mg PO DAILY 02/06/22 02/06/22 02/06/22 History tablet (Vitamin C) cholecalciferol (vitamin D3) 25 25 mcg PO DAILY 02/06/22 02/06/22 02/06/22 History mcg (1,000 unit) tablet (Vitamin D3) diltiazem HCl 240 mg 240 mg PO BEDTIME 02/06/22 02/06/22 02/05/22 History capsule,extended release 24 hr metformin 500 mg tablet 1,000 mg PO DAILY@1800 02/06/22 02/06/22 02/05/22 History metformin 500 mg tablet 500 mg PO DAILY 02/06/22 02/06/22 02/06/22 History Exam Exam Date and Time: February 07, 2022 1151 Height,Weight and Vital Signs: Height 5 ft 7 in Weight 168.283 kg Last Vital Signs Temp 97.9 F 02/07/22 04:44 Pulse 119 H 02/07/22 07:17 Resp 15 02/07/22 07:17 BP 124/84 02/07/22 07:17 Pulse Ox 93 02/07/22 07:17 O2 Del Method 02/07/22 07:17 Pertinent Lab Results Pertinent Lab Results: Laboratory Tests 02/06/22 02/06/22 02/06/22 14:59 14:59 14:59 WBC 10.3 RBC 4.91 Hgb 14.4 Hct 44.2 MCV 90.0 MCH 29.3 MCHC 32.6 RDW 12.9 Plt Count 279 MPV 8.7 L Immature Gran % (Auto) 0.3 Neut % (Auto) 71.2 Lymph % (Auto) 19.5 L [place] % (Auto) 5.8 Eos % (Auto) 3.1 Baso % (Auto) 0.1 Lymph # (Auto) 2.0 [place] # (Auto) 0.6 Eos # (Auto) 0.3 Baso # (Auto) 0.0 Abs Immat Gran (auto) 0.03 Absolute Neuts (auto) 7.3 Absolute Nucleated RBC 0.000 Nucleated RBC % (auto) 0.0 PT 15.1 H INR 1.3 H Sodium 139 Potassium 4.3 Chloride 102 Carbon Dioxide 26 Anion Gap 15 BUN 12 Creatinine 0.80 Estim Creat Clear Calc 133.8 Estimated GFR > 60 POC Glucose Random Glucose 174 H Calcium 9.8 D Magnesium 1.4 L* Total Bilirubin 0.5 Direct Bilirubin 0.2 AST 13 ALT 9 Alkaline Phosphatase 90 Troponin I High Sens Total Protein 6.7 Albumin 4.2 COVID-19 ([facility]) COVID-19 Clin Com 02/06/22 02/06/22 02/06/22 14:59 17:02 18:24 WBC RBC Hgb Hct MCV MCH MCHC RDW Plt Count MPV Immature Gran % (Auto) Neut % (Auto) Lymph % (Auto) [place] % (Auto) Eos % (Auto) Baso % (Auto) Lymph # (Auto) [place] # (Auto) Eos # (Auto) Baso # (Auto) Abs Immat Gran (auto) Absolute Neuts (auto) Absolute Nucleated RBC Nucleated RBC % (auto) PT INR Sodium Potassium Chloride Carbon Dioxide Anion Gap BUN Creatinine Estim Creat Clear Calc Estimated GFR POC Glucose Random Glucose Calcium Magnesium Total Bilirubin Direct Bilirubin AST ALT Alkaline Phosphatase Troponin I High Sens < 3.5 < 3.5 Total Protein Albumin COVID-19 (MONIK) Negative COVID-19 Clin Com See Note 02/06/22 02/07/22 02/07/22 20:26 04:35 04:35 WBC 8.9 RBC 4.50 Hgb 13.4 Hct 41.2 MCV 91.6 MCH 29.8 MCHC 32.5 RDW 13.1 Plt Count 258 MPV 8.8 L Immature Gran % (Auto) 0.3 Neut % (Auto) 58.3 Lymph % (Auto) 30.7 [place] % (Auto) 7.0 Eos % (Auto) 3.6 Baso % (Auto) 0.1 Lymph # (Auto) 2.7 [place] # (Auto) 0.6 Eos # (Auto) 0.3 Baso # (Auto) 0.0 Abs Immat Gran (auto) 0.03 Absolute Neuts (auto) 5.2 Absolute Nucleated RBC 0.000 Nucleated RBC % (auto) 0.0 PT INR Sodium 140 Potassium 3.6 Chloride 106 Carbon Dioxide 24 Anion Gap 14 BUN 11 Creatinine 0.70 Estim Creat Clear Calc 152.9 Estimated GFR > 60 POC Glucose 110 Random Glucose 99 Calcium 9.3 Magnesium 1.9 Total Bilirubin Direct Bilirubin AST ALT Alkaline Phosphatase Troponin I High Sens Total Protein Albumin COVID-19 (MONIK) COVID-19 Clin Com 02/07/22 07:15 WBC RBC Hgb Hct MCV MCH MCHC RDW Plt Count MPV Immature Gran % (Auto) Neut % (Auto) Lymph % (Auto) [place] % (Auto) Eos % (Auto) Baso % (Auto) Lymph # (Auto) [place] # (Auto) Eos # (Auto) Baso # (Auto) Abs Immat Gran (auto) Absolute Neuts (auto) Absolute Nucleated RBC Nucleated RBC % (auto) PT INR Sodium Potassium Chloride Carbon Dioxide Anion Gap BUN Creatinine Estim Creat Clear Calc Estimated GFR POC Glucose 121 H Random Glucose Calcium Magnesium Total Bilirubin Direct Bilirubin AST ALT Alkaline Phosphatase Troponin I High Sens Total Protein Albumin COVID-19 ([facility]IK) COVID-19 Clin Com Airway Mallampati Class: III TM Dist: >3cm Neck ROM: Full Assessment and Plan Assessment Anesthesia Assessment: Anesthesia Plan Discussed and Chart Reviewed Final Anesthetic Review Family History of Problems with Anesthesia: No History of Problems with Anesthesia: No NPO: Yes ASA Class: III and Emergency Final Preanesthetic Review: No Changes in Pt Med Stat, Meds/Allgs Chart Reviewed, Consent Obtained/Reviewed and Anes Risks/Benef Reviewed Patient Risk: Intermediate Procedure Risk: Low Anesthetic Plan Anesthetic Plan: GA Disposition: Standard PACU
--- NOTE | 2022-02-07 12:23 | ECG_ITS ---
Test Reason : S/P [facility] Blood Pressure : / mmHG Vent. Rate : 090 BPM Atrial Rate : 090 BPM P-R Int : 200 ms QRS Dur : 096 ms QT Int : 434 ms P-R-T Axes : 030 003 041 degrees QTc Int : 530 ms Normal sinus rhythm Low voltage QRS Nonspecific T wave abnormality Prolonged QT Abnormal ECG When compared with ECG of 07-FEB-2022 08:11, Rhythm change Referred By: Nikki Henry Electronically Signed By:NIKKI HENRY
--- NOTE | 2022-02-07 13:09 | P.DS_ITS ---
DS: Providers Provider Date of Service: 02/07/22 Date of admission: 02/06/22 17:14 Primary care physician: Guanakito Tyler MD Consults: 02/06/22 17:33 Consult to Cardiology Routine Consulting Provider: [facility] Cardi[facility] Services Reason for consultation: aflutter Has provider been notified: No DS: Diagnosis Discharge Diagnosis (1) Atrial flutter with rapid ventricular response: Status: Acute (2) Morbid obesity: Status: Acute (3) Graves disease: Status: Acute DS: Summary Hospital Course Hospital Course: 51-year-old female-with past medical history of of morbid obesity, diabetes, Graves disease, hyperlipidemia, AFib on flecainide/Cardizem-patient says that since last night she is having palpitations which she noted on her electronic watch and subsequently felt somewhat short of breath and also intermittent palpitation so for that reason she went to the cardiology clinic and subsequently discussed with the road roller engineer-sent to ED for possible cardioversion in the morning, patient says that her palpitation is slightly better in the ED she received Cardizem IV:? Heart rates are improving between 100-110. Denies any new complaint of chest pain or shortness of breath or abdominal pain or fever or chills or nausea or vomiting Denies any cough Denies any weakness or numbness. Lab imaging EKG reviewed: CBC fine, BMP also seems fine, magnesium 1.4. LFTs normal cxr : neg ekg: aflutter with variable degree of av block. Hospital course: Patient was admitted to the hospital because of a flutter with rapid rate, palpitations: Started on IV Cardizem drip, and subsequently seen by Cardiology and now is status post cardioversion. Patient's heart rate seems to be improved ,cardizem drip discontinued. Discussed with Cardiology patient will go home on home medications. Further management outpatient. Hypomagnesemia repleted and resolved-adjusted home magnesium dosing. Above management discussed with the patient in detail length she understand and in agreement with the plan, time spent 50 minute. Time Spent with Patient Time attestation: Total time managing care of this patient today ____ minutes. Discharge coordination time: Greater than 30 minutes Quality: Safe Use of Opioids Does Pt have an Active Cancer Diagnosis on the Problem List?: No Quality: Stroke Does the patient have a stroke diagnosis?: No Physical Exam Vital Signs: Vital Signs: Last Vital Signs Temp 97.9 F 02/07/22 12:45 Pulse 89 02/07/22 12:45 Resp 16 02/07/22 12:45 BP 116/74 02/07/22 12:45 Pulse Ox 94 02/07/22 12:45 O2 Del Method 02/07/22 12:45 O2 Flow Rate 3 02/07/22 12:35 BMI result Body Mass Index 58.1 Appearance: Alert.? Oriented X3.? not in distress.? Eyes: Pupils equal, round and reactive to light.? Sclera nonicteric.? ENT: Pharynx normal.? Moist mucous membranes. cvs: rrr, [id number] . res: clear to auscultation ,no rhonchii or wheezing abd: no rebound or guarding ,nt, bs present. ext pulses present , no cyanosis . neuro: axo3 , nonfocal. DS: Data Data Completed and Pending Labs on day of discharge: Laboratory Results - last 24 hr 02/06/22 02/06/22 02/06/22 14:59 14:59 14:59 WBC 10.3 RBC 4.91 Hgb 14.4 Hct 44.2 MCV 90.0 MCH 29.3 MCHC 32.6 RDW 12.9 Plt Count 279 MPV 8.7 L Immature Gran % (Auto) 0.3 Neut % (Auto) 71.2 Lymph % (Auto) 19.5 L Elmore % (Auto) 5.8 Eos % (Auto) 3.1 Baso % (Auto) 0.1 Lymph # (Auto) 2.0 Elmore # (Auto) 0.6 Eos # (Auto) 0.3 Baso # (Auto) 0.0 Abs Immat Gran (auto) 0.03 Absolute Neuts (auto) 7.3 Absolute Nucleated RBC 0.000 Nucleated RBC % (auto) 0.0 PT 15.1 H INR 1.3 H Sodium 139 Potassium 4.3 Chloride 102 Carbon Dioxide 26 Anion Gap 15 BUN 12 Creatinine 0.80 Estim Creat Clear Calc 133.8 Estimated GFR > 60 POC Glucose Random Glucose 174 H Calcium 9.8 D Magnesium 1.4 L* Total Bilirubin 0.5 Direct Bilirubin 0.2 AST 13 ALT 9 Alkaline Phosphatase 90 Troponin I High Sens Total Protein 6.7 Albumin 4.2 COVID-19 (MONIK) COVID-19 Clin Com 02/06/22 02/06/22 02/06/22 14:59 17:02 18:24 WBC RBC Hgb Hct MCV MCH MCHC RDW Plt Count MPV Immature Gran % (Auto) Neut % (Auto) Lymph % (Auto) Elmore % (Auto) Eos % (Auto) Baso % (Auto) Lymph # (Auto) Elmore # (Auto) Eos # (Auto) Baso # (Auto) Abs Immat Gran (auto) Absolute Neuts (auto) Absolute Nucleated RBC Nucleated RBC % (auto) PT INR Sodium Potassium Chloride Carbon Dioxide Anion Gap BUN Creatinine Estim Creat Clear Calc Estimated GFR POC Glucose Random Glucose Calcium Magnesium Total Bilirubin Direct Bilirubin AST ALT Alkaline Phosphatase Troponin I High Sens < 3.5 < 3.5 Total Protein Albumin COVID-19 (MONIK) Negative COVID-19 Clin Com See Note 02/06/22 02/07/22 02/07/22 20:26 04:35 04:35 WBC 8.9 RBC 4.50 Hgb 13.4 Hct 41.2 MCV 91.6 MCH 29.8 MCHC 32.5 RDW 13.1 Plt Count 258 MPV 8.8 L Immature Gran % (Auto) 0.3 Neut % (Auto) 58.3 Lymph % (Auto) 30.7 Elmore % (Auto) 7.0 Eos % (Auto) 3.6 Baso % (Auto) 0.1 Lymph # (Auto) 2.7 Elmore # (Auto) 0.6 Eos # (Auto) 0.3 Baso # (Auto) 0.0 Abs Immat Gran (auto) 0.03 Absolute Neuts (auto) 5.2 Absolute Nucleated RBC 0.000 Nucleated RBC % (auto) 0.0 PT INR Sodium 140 Potassium 3.6 Chloride 106 Carbon Dioxide 24 Anion Gap 14 BUN 11 Creatinine 0.70 Estim Creat Clear Calc 152.9 Estimated GFR > 60 POC Glucose 110 Random Glucose 99 Calcium 9.3 Magnesium 1.9 Total Bilirubin Direct Bilirubin AST ALT Alkaline Phosphatase Troponin I High Sens Total Protein Albumin COVID-19 (MONIK) COVID-19 Clin Com 02/07/22 07:15 WBC RBC Hgb Hct MCV MCH MCHC RDW Plt Count MPV Immature Gran % (Auto) Neut % (Auto) Lymph % (Auto) Elmore % (Auto) Eos % (Auto) Baso % (Auto) Lymph # (Auto) Elmore # (Auto) Eos # (Auto) Baso # (Auto) Abs Immat Gran (auto) Absolute Neuts (auto) Absolute Nucleated RBC Nucleated RBC % (auto) PT INR Sodium Potassium Chloride Carbon Dioxide Anion Gap BUN Creatinine Estim Creat Clear Calc Estimated GFR POC Glucose 121 H Random Glucose Calcium Magnesium Total Bilirubin Direct Bilirubin AST ALT Alkaline Phosphatase Troponin I High Sens Total Protein Albumin COVID-19 (MONIK) COVID-19 Clin Com Imaging Chest x-ray: Radiologist's impression: ITS Impressions Chest X-Ray 02/06/22 16:40 IMPRESSION: No acute pulmonary process. Discharge Plan Discharge Anticipated Discharge Date/Time: 02/07/22 13:05 Patient Disposition: Home, Self-Care Discharge Diagnosis: alutter s/p cardioversion, hypomagnesemia Referrals: Guanakito Tyler MD [Primary Care Provider] - 1 Week Discharge Medications: Continued flecainide 100 mg tablet 150 mg PO BID 90 Days Qty: 270 3RF furosemide 20 mg tablet 20 mg PO DAILY Qty: 60 3RF metformin 500 mg tablet 1,000 mg PO DAILY@1800 metformin 500 mg tablet 500 mg PO DAILY acetaminophen 325 mg Tablet 650 mg PO DAILY acetaminophen 500 mg Tablet 1,000 mg PO BEDTIME ascorbic acid (vitamin C) [Vitamin C] 500 mg Tablet 500 mg PO DAILY cholecalciferol (vitamin D3) [Vitamin D3] 25 mcg (1,000 unit) Tablet 25 mcg PO DAILY diltiazem HCl 240 mg capsule,extended release 24hr 240 mg PO BEDTIME apixaban 5 mg tablet 5 mg PO BID atorvastatin 10 mg tablet 10 mg PO DAILY methimazole 5 mg tablet 5 mg PO Q2D glipizide 5 mg tablet extended release 24hr 10 mg PO BID Mounjaro 5 mg/0.5 mL pen injector 5 mg subcut LEZAMA Changed magnesium oxide 400 mg magnesium capsule 400 mg PO BID Qty: 60 0RF Discharge Orders: Discharge Order (Routine); Ordered 02/07/22 Ordered By: Jose Sanderson Diet: Advance to usual diet Activity on Discharge: As tolerated Stand Alone Forms: Patient Portal Discharge page Care Plan Goals: Patient was admitted to the hospital because of a flutter with rapid rate, palpitations: Started on IV Cardizem drip, and subsequently seen by Cardiology and now is status post cardioversion. Patient's heart rate seems to be improved. Discussed with Cardiology patient will go home on home medications. Further management outpatient. Health Concerns: As above. Plan of Treatment: As above. Assessment: As above.
[2022-02-07 13:17] LABS: Glucose, Whole Blood 146 mg/dL (60-115)
--- NOTE | 2022-02-07 13:59 | MHC.CM.PN ---
CM ATTEMPTED TO SEE PT WHO WAS OFF UNIT IN [facility] PT NOW BEING DISCHARGED HOME FROM [facility] WITH NO SERVICES PT TO ARRANGE TRANSPORT
== END 2022-02-07 14:25 | disposition home or self-care (01) | DRG 201 ==
LOC: HO.ED 16:06 → HO.EDOVER 17:35
PROVIDERS: Internal Medicine; Nurse Practitioner Family; Admitting Provider Internal Medicine; Emergency Provider Emergency Medicine; PCP Internal Medicine; Visit Provider Internal Medicine
PROC: 5A2204Z Restoration of Cardiac Rhythm, Single (ICD-10-PCS; principal; 2022-02-07 12:00)
DX: I48.92 Unspecified atrial flutter (principal); Z68.43 Body mass index [BMI] 50.0-59.9, adult; E83.42 Hypomagnesemia; E66.01 Morbid (severe) obesity due to excess calories; I48.0 Paroxysmal atrial fibrillation; E78.5 Hyperlipidemia, unspecified; E05.00 Thyrotoxicosis with diffuse goiter without thyrotoxic crisis or storm; I44.39 Other atrioventricular block; Z20.822 Contact with and (suspected) exposure to COVID-19; Z79.01 Long term (current) use of anticoagulants; Z79.84 Long term (current) use of oral hypoglycemic drugs; Z79.899 Other long term (current) drug therapy
CPT/HCPCS: 36415; 71045; 80048; 80076; 82947; 83735; 84484; 85025; 85610; 87635; 92960; 93005; 93306; 99285; J3475; Q9957

== ENCOUNTER → 2022-02-13 09:01 | Outpatient (BNVA) | payer BC, SELFPAY | PROVIDERS: PCP Internal Medicine; Referring Provider Internal Medicine; Visit Provider Internal Medicine Cardiovascular Disease | DX: Z13.89 Encounter for screening for other disorder (principal) | CPT/HCPCS: 93005 ==

== ENCOUNTER 2022-02-19 10:08 | Outpatient (REF) | payer BC, SELFPAY ==
[2022-02-19 13:58] LABS: MANUAL DIFF FLAG NO
[2022-02-19 14:07] LABS: Basophils Percent Auto 0.3 % (0-2); Eosinophils Absolute Auto 1.2 X10*3/uL (0.0-0.4); Eosinophils Percent Auto 12.2 % (0-4); Hematocrit 44.3 % (37.0-47.0); Hemoglobin 14.2 g/dl (12.0-16.0); Imm Gran Abs Auto 0.04 X10*3/uL (0.00-0.03); Imm Gran Pct Auto 0.4 % (0.0-0.4); Lymphocytes Absolute Auto 1.9 X10*3/uL (1.2-4.9); Lymphocytes Percent Auto 19.9 % (20-40); Mean Corpuscular HGB Conc 32.1 g/dl (31.0-35.0); Mean Corpuscular Hemoglobin 29.5 pg (27.0-33.0); Mean Corpuscular Volume 92.1 fL (80.0-98.0); Mean Platelet Volume 9.2 fL (9.4-12.3); Monocytes Absolute Auto 0.5 X10*3/uL (0.1-1.2); Monocytes Percent Auto 4.9 % (2-11); Neutrophils Absolute Auto 5.9 x10*3/uL (2.0-8.3); Neutrophils Percent Auto 62.3 % (45-73); Platelet Count 308 X10*3/uL (160-400); Red Blood Count 4.81 X10*6/uL (4.20-5.50); Red Cell Distribution Width 13.1 % (11.0-16.0); White Blood Count 9.5 X10*3/uL (4.8-10.8)
[2022-02-19 14:16] LABS: Estimated Average Glucose 126 mg/dL
[2022-02-19 14:19] LABS: Alanine Aminotransferase 12 U/L (0-31); Albumin Level 4.2 g/dL (3.5-5.0); Alkaline Phosphatase 90 U/L (39-117); Anion Gap 12 (12-20); Aspartate Amino Transferase 16 U/L (5-31); Bilirubin Total 0.4 mg/dL (0.0-1.0); Blood Urea Nitrogen 9 mg/dL (9-16); Calcium 9.7 mg/dL (8.4-10.2); Carbon Dioxide 30 mmol/L (22-29); Chloride 101 mmol/L (96-108); Estimated Glomerular Filt Rate > 60; Glucose Random 140 mg/dL (60-115); Magnesium 1.8 mg/dL (1.6-2.6); Potassium 4.5 mmol/L (3.3-5.1); Sodium 138 mmol/L (135-145); Total Protein 6.6 g/dL (6.5-8.0)
== END 2022-02-19 10:09 | disposition home or self-care (01) ==
LOC: HO.10HDL 10:08
PROVIDERS: Visit Provider Internal Medicine
DX: I48.0 Paroxysmal atrial fibrillation (principal); E11.9 Type 2 diabetes mellitus without complications; E03.9 Hypothyroidism, unspecified; E83.42 Hypomagnesemia
CPT/HCPCS: 36415; 80053; 83036; 83735; 85025

== ENCOUNTER → 2022-02-27 13:59 | Outpatient (BNVA) | payer BC, SELFPAY | PROVIDERS: PCP Internal Medicine; Visit Provider Internal Medicine Cardiovascular Disease | DX: I48.92 Unspecified atrial flutter (principal); I48.0 Paroxysmal atrial fibrillation | CPT/HCPCS: 93005 ==

== ENCOUNTER 2022-04-09 11:31 | Outpatient (REF) | payer BC, SELFPAY ==
[2022-04-09 14:09] LABS: Estimated Average Glucose 128 mg/dL; Hemoglobin A1c % 6.1 %
[2022-04-09 14:27] LABS: Alanine Aminotransferase 13 U/L (0-31); Alkaline Phosphatase 86 U/L (39-117); Anion Gap 14 (12-20); Aspartate Amino Transferase 15 U/L (5-31); Bilirubin Total 0.6 mg/dL (0.0-1.0); Blood Urea Nitrogen 11 mg/dL (9-16); Calcium 9.5 mg/dL (8.4-10.2); Carbon Dioxide 27 mmol/L (22-29); Chloride 103 mmol/L (96-108); Estimated Glomerular Filt Rate > 60; Glucose Random 143 mg/dL (60-115); Potassium 4.3 mmol/L (3.3-5.1); Sodium 140 mmol/L (135-145); Total Protein 6.4 g/dL (6.5-8.0)
[2022-04-09 14:42] LABS: Free T4 (Free Thyroxine) 1.09 ng/dL (0.71-1.85); Thyroid Stimulating Hormone 0.44 uIU/mL (0.32-4.0)
[2022-04-09 15:04] LABS: Creatinine Urine 87.68 mg/dL; Microalbum/Creatinine Ratio Ur 12.5 ug/mg cr
== END 2022-04-09 11:32 | disposition home or self-care (01) ==
LOC: HO.10HDL 11:31
PROVIDERS: Visit Provider Internal Medicine
DX: E03.9 Hypothyroidism, unspecified (principal); E11.9 Type 2 diabetes mellitus without complications; I48.0 Paroxysmal atrial fibrillation
CPT/HCPCS: 36415; 80053; 82043; 83036; 84439; 84443

== ENCOUNTER → 2022-06-14 15:09 | Outpatient (BNVA) | payer BC, SELFPAY | PROVIDERS: PCP Internal Medicine; Visit Provider Advanced Practice Midwife | DX: Z13.89 Encounter for screening for other disorder (principal) ==

== ENCOUNTER → 2022-07-15 13:03 | Outpatient (BNVA) | payer BC, SELFPAY | PROVIDERS: PCP Internal Medicine; Referring Provider Internal Medicine; Visit Provider Internal Medicine Cardiovascular Disease ==

== ENCOUNTER 2022-08-03 08:05 | Outpatient (REF) | payer BC, SELFPAY ==
--- NOTE | ~2022-08-03 | MM_ITS ---
EXAMINATION: MM SCREENING DIGITAL BREAST TOMOSYNTHESIS, BILATERAL CLINICAL INFORMATION: Screening. Asymptomatic. The lifetime risk of breast cancer based on the Tyrer-Cuzick Model is 10%. COMPARISON: Mammography: 07/26/2021, 07/21/2020, 01/20/2019 TECHNIQUE: Digital breast tomosynthesis is performed in both the craniocaudal and mediolateral oblique views along with computer-aided detection (CAD). Synthesized 2D images are generated from the tomosynthesis. Additional bilateral CC and additional bilateral MLO views are provided. FINDINGS: The breasts are almost entirely fatty (ACR BI-RADS breast composition Category a). There are no significant masses, abnormal calcifications, or other abnormalities. Parenchymal pattern is similar to prior studies. There is no developing density or architectural abnormality. The axilla and skin contours are unremarkable. No significant changes. MM/MM tomosynthesis screening BI IMPRESSION: No mammographic evidence of malignancy. ASSESSMENT: BI-RADS 1: Negative RECOMMENDATION: Routine annual mammography screening. This patient's information was entered into a reminder system with a target due date for their next mammogram.
== END 2022-08-03 08:06 | disposition home or self-care (01) ==
LOC: HO.MAMMO 08:05
PROVIDERS: PCP Internal Medicine; Visit Provider Advanced Practice Midwife
DX: Z12.31 Encounter for screening mammogram for malignant neoplasm of breast (principal)
CPT/HCPCS: 77063; 77067

== ENCOUNTER → 2022-08-15 14:09 | Outpatient (BNVA) | payer BC, SELFPAY | PROVIDERS: PCP Internal Medicine; Visit Provider Physician Assistant ==

== ENCOUNTER 2022-09-27 07:15 | Outpatient (REF) | payer BC, SELFPAY ==
[2022-09-27 13:44] LABS: Estimated Average Glucose 108 mg/dL; Hemoglobin A1c % 5.4 %
[2022-09-27 13:52] LABS: Creatinine Urine 108.78 mg/dL; Microalbum/Creatinine Ratio Ur 10.1 ug/mg cr
[2022-09-27 15:25] LABS: Alanine Aminotransferase 16 U/L (0-31); Albumin Level 3.9 g/dL (3.5-5.0); Alkaline Phosphatase 87 U/L (39-117); Anion Gap 17 (12-20); Aspartate Amino Transferase 17 U/L (5-31); Bilirubin Total 0.5 mg/dL (0.0-1.0); Blood Urea Nitrogen 9 mg/dL (9-16); Calcium 9.7 mg/dL (8.4-10.2); Carbon Dioxide 23 mmol/L (22-29); Chloride 105 mmol/L (96-108); Cholesterol 127 mg/dL; Estimated Glomerular Filt Rate > 60; Glucose Random 108 mg/dL (60-115); HDL Cholesterol 37 mg/dL; LDL Cholesterol Calculated 63 mg/dl; Potassium 4.1 mmol/L (3.3-5.1); Sodium 141 mmol/L (135-145); Thyroid Stimulating Hormone 0.02 uIU/mL (0.32-4.0); Total Protein 6.8 g/dL (6.5-8.0); Triglycerides 139 mg/dL
[2022-09-27 15:36] LABS: Vitamin B12 213 pg/mL (200-900)
[2022-09-29 06:34] LABS: Triiodothyronine T3 Free 4.2 pg/mL (2.3-4.2)
== END 2022-09-27 07:16 | disposition home or self-care (01) ==
LOC: HO.HMGCLDS 07:15
PROVIDERS: PCP Internal Medicine; Visit Provider Internal Medicine
DX: E11.42 Type 2 diabetes mellitus with diabetic polyneuropathy (principal); E05.00 Thyrotoxicosis with diffuse goiter without thyrotoxic crisis or storm
CPT/HCPCS: 36415; 80053; 80061; 82043; 82607; 83036; 83520; 84439; 84443; 84481

== ENCOUNTER 2022-11-18 13:39 | Outpatient (AMB) | payer BC, SELFPAY ==
--- NOTE | 2022-11-18 13:47 | A.OFFVIS_ITS ---
Intake Vital Signs 11/18/22 13:48 Height 5 ft 8 in Weight 337 lb 11.971 oz BMI 51.3 BP 140/80 H Blood Pressure Location Lt brachial Position Sitting Pulse 83 Intake Visit Reasons: 4 month follow up Intake Note: 4 month follow up w/ EKG Upholsterer Helper Required: No Accompanied by: Self / Same As Patient Allergies No Known Allergies Allergy (Verified 11/18/22 13:48) Medication List - Last Reconciled 11/18/22 by Italo Cervantes MD acetaminophen 1,000 mg PO BEDTIME acetaminophen 650 mg PO DAILY apixaban 5 mg PO BID ascorbic acid (vitamin C) (Vitamin C) 500 mg PO DAILY atorvastatin 10 mg PO DAILY cholecalciferol (vitamin D3) (Vitamin D3) 25 mcg PO DAILY diltiazem HCl 240 mg PO BEDTIME flecainide 150 mg (1.5 x 100 mg) PO BID 90 days furosemide 20 mg PO DAILY magnesium oxide 400 mg PO BID metformin 500mg AM, 1000mg PM methimazole 5 mg PO Q2D omeprazole 20 mg PO DAILY tirzepatide (Mounjaro) 10 mg subcut QWEEK HPI HPI Comments History of Present Illness Details 52-year-old female who is here for follo w-up. She recently presented to the clinic with palpitation and was in atrial flutter. She was admitted to the hospital underwent cardioversion. She was discharged home after that on flecainide 150 mg twice a day. She is on apixaban 5 mg twice a day. She has been stable since then. Denying any symptoms currently. she was seen by EP and was advised to lose weight. She had ECG in EP office today at [facility] which showed sinus rhythm. Taking meds. She is losing weight and has been on Mounjaro with better sugar control. 11/18/2022, she returns for follow-up. S he has been following with weight management program has lost 16 lb at this stage. She is looking quite focused and has cut back significantly on her sugar intake. She is denying any significant symptoms otherwise. Taking medications regularly. No palpitations on follow-up. [facility] Medical History (Updated 06/14/22 @ 16:18 by Stacy Boland) Postmenopausal bleeding History of cardioversion Morbid obesity Graves disease Diabetes PAF (paroxysmal atrial fibrillation) Surgical History Hx of cholecystectomy H/O knee surgery History of hernia repair S/P removal of left ovary Family History Father CVD (cardiovascular disease) Heart attack Mother Lung cancer Social History Household Members: None Housing: Apartment Alcohol intake: current Alcohol intake frequency: holidays/special occasions only Patient Tobacco Use Status: Never used Tobacco Current occupational status: unemployed Sexual orientation: Straight/Heterosexual Gender identity: Female Review of Systems Const Denies weakness ENT Denies dizziness Card Denies chest pain, Denies chest pain with activity, Denies syncope, Denies rapid heart rate, Denies pedal edema, Denies edema, Denies leg edema, Denies lightheadedness, Denies palpitations, Denies dyspnea, Denies dyspnea on exertion and Denies orthopnea Resp Denies cough, Denies dyspnea and Denies dyspnea on exertion GI Denies hematochezia and Denies change in stool character Musc Denies abnormal gait, Denies muscle cramps, Denies muscle weakness, Denies numbness, Denies radiating pain into limb and Denies tingling Neuro Denies abnormal gait, Denies dizziness, Denies syncope, Denies numbness, Denies tingling and Denies weakness Endo Denies palpitations Physical Exam Vital Signs: Last Vital Signs Pulse 83 11/18/22 13:48 BP 140/80 H 11/18/22 13:48 BMI result Body Mass Index 51.3 GENERAL APPEARANCE: in no acute distress, pleasant. NECK: no carotid bruit, no jugular venous distention. SKIN: no suspicious lesions, warm and dry. HEART: no murmurs, regular rate and rhythm. LUNGS: clear to auscultation bilaterally. ABDOMEN: soft, nontender. EXTREMITIES: no edema. PERIPHERAL PULSES: equal. NEUROLOGIC: No gross deficits, AAO X 3 Office Procedures EKG Details: Sinus rhythm 83 beats per minute, normal axis, QTC 481 milliseconds. [id number], Complete Assessment & Plan Assessment & Plan (1) Atrial flutter: Code(s): I48.92 - Unspecified atrial flutter (2) Morbid obesity: Code(s): E66.01 - Morbid (severe) obesity due to excess calories (3) PAF (paroxysmal atrial fibrillation): Code(s): I48.0 - Paroxysmal atrial fibrillation Plan Pleasant 52 year female who is here for follow-up. She has known history of atrial fibrillation and flutter in the past. She underwent cardioversion in the past and has been on flecainide 150 mg twice a day. She was referred for ablation but was advised to lose weight. She was referred to weight management program and has been following at [facility] at this point. She is changing her diet and has significantly cut back on her sugar intake. She has lost 16 lb at this point. She is also using Mounjaro for her diabetes which also is helping with weight loss. Clinically stable at this point. We will see her back in few months. She should continue same medications for now. I have really encouraged her to keep going with weight loss which will play a carvalho role in controlling her arrhythmia specially atrial fibrillation. Thank you for allowing me to participate in the care of your patient. Please feel free to contact me if you have any questions. Coding Level of Care Code Est Pt Level 4 (71737) Diagnoses Atrial flutter I48.92 Morbid obesity E66.01 PAF (paroxysmal atrial fibrillation) I48.0 CPT Codes EKG - CPT: 75746-[id number], Complete ([id number])
[2022-11-18 13:48] VITALS: BP 140/80; PULSE 83; BMI 51.3
== END 2022-11-18 14:27 | disposition home or self-care (01) ==
PROVIDERS: PCP Internal Medicine; Visit Provider Internal Medicine Cardiovascular Disease
DX: I48.92 Unspecified atrial flutter (principal); E66.01 Morbid (severe) obesity due to excess calories; I48.0 Paroxysmal atrial fibrillation
CPT/HCPCS: 93010; 99214

== ENCOUNTER → 2022-11-18 13:39 | Outpatient (BNVA) | payer BC, SELFPAY | PROVIDERS: PCP Internal Medicine; Visit Provider Internal Medicine Cardiovascular Disease | DX: I48.92 Unspecified atrial flutter (principal); I48.0 Paroxysmal atrial fibrillation; E66.01 Morbid (severe) obesity due to excess calories; Z68.43 Body mass index [BMI] 50.0-59.9, adult; Z79.899 Other long term (current) drug therapy | CPT/HCPCS: 93005 ==

== ENCOUNTER 2022-12-27 06:07 | Outpatient (REF) | payer BC, SELFPAY ==
[2022-12-27 11:43] LABS: Estimated Average Glucose 117 mg/dL; Hemoglobin A1c % 5.7 % (<6.0)
[2022-12-27 12:06] LABS: Alanine Aminotransferase 17 U/L (0-31); Anion Gap 14 (12-20); Aspartate Amino Transferase 21 U/L (5-31); Blood Urea Nitrogen 13 mg/dL (9-16); Calcium 9.9 mg/dL (8.4-10.2); Carbon Dioxide 28 mmol/L (22-29); Chloride 104 mmol/L (96-108); Estimated Glomerular Filt Rate > 60; Glucose Random 147 mg/dL (60-115); Potassium 4.5 mmol/L (3.3-5.1); Sodium 141 mmol/L (135-145)
[2022-12-27 12:13] LABS: Magnesium 1.7 mg/dL (1.6-2.6)
[2022-12-27 12:14] LABS: Vitamin B12 459 pg/mL (200-900)
[2022-12-27 12:16] LABS: Free T4 (Free Thyroxine) 1.43 ng/dL (0.71-1.85); Thyroid Stimulating Hormone 0.01 uIU/mL (0.32-4.0)
== END 2022-12-27 06:08 | disposition home or self-care (01) ==
LOC: HO.HMGCLDS 06:07
PROVIDERS: Absent Provider Physician Assistant; PCP Internal Medicine; Visit Provider Internal Medicine
DX: E11.9 Type 2 diabetes mellitus without complications (principal); E03.9 Hypothyroidism, unspecified; I48.0 Paroxysmal atrial fibrillation; E53.8 Deficiency of other specified B group vitamins; E83.42 Hypomagnesemia
CPT/HCPCS: 36415; 80048; 82607; 83036; 83735; 84439; 84443; 84450; 84460

== ENCOUNTER 2023-04-03 08:30 | Outpatient (AMB) | payer BC, SELFPAY ==
--- NOTE | 2023-04-03 08:34 | MHC.OFFVIS ---
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 Required: No Allergies No Known Allergies Allergy (Verified 04/03/23 08:38) Medication List - Last Reconciled 04/03/23 by JONG Garcia acetaminophen 1,000 mg PO BEDTIME acetaminophen 650 mg PO DAILY apixaban 5 mg PO BID ascorbic acid (vitamin C) (Vitamin C) 500 mg PO DAILY atorvastatin 10 mg PO DAILY cholecalciferol (vitamin D3) (Vitamin D3) 25 mcg PO DAILY diltiazem HCl 240 mg PO BEDTIME flecainide 150 mg (1.5 x 100 mg) PO BID 90 days furosemide 20 mg PO DAILY 90 days magnesium oxide 400 mg PO BID metformin 500mg AM, 1000mg PM methimazole 5 mg PO Q2D omeprazole 20 mg PO DAILY tirzepatide (Mounjaro) 10 mg subcut QWEEK HPI 4 mnt f/up HPI Details Corazon is a 52-year-old female with past medical history of morbid obesity, diabetes, Graves disease, atrial fibrillation/flutter who presents for follow-up. Today she reports that she is actively losing weight. She follows with the [facility] weight loss program. She has not been able to do much for physical activity due to bilateral knee pain. She will be needing a right total knee replacement at some point this year. No chest discomfort at rest or with activity. No heart palpitations or concerns of having recurrent AFib since her last visit in October. No shortness of breath, PND, orthopnea or edema. No lightheadedness, presyncope, syncope, falls. She is lost close to 70 lb in just over a year. She is hoping to lose at least 120 more lb. She was evaluated by electrophysiology in the past and was told to lose weight. She is following with endocrinology for hyperthyroidism. She has a smart watch which tells her if she is having AFib. [facility] Medical History Postmenopausal bleeding History of cardioversion Morbid obesity Graves disease Diabetes PAF (paroxysmal atrial fibrillation) Surgical History Hx of cholecystectomy H/O knee surgery History of hernia repair S/P removal of left ovary Family History Father CVD (cardiovascular disease) Heart attack Mother Lung cancer Social History Household Members: None Housing: Apartment Alcohol intake: current Alcohol intake frequency: holidays/special occasions only Comment: d/c from [facility] Patient Tobacco Use Status: Never used Tobacco Current occupational status: unemployed Sexual orientation: Straight/Heterosexual Gender identity: Female Review of Systems Const Details: working on weight loss All systems reviewed & are unremarkable except as noted in HPI and below ENT Denies dizziness Card Denies chest pain, Denies chest pain at rest, Denies chest pain with activity, Denies rapid heart rate, Denies pedal edema, Denies edema, Denies leg edema, Denies lightheadedness, Denies palpitations, Denies dyspnea, Denies dyspnea on exertion and Denies orthopnea Resp Denies cough, Denies dyspnea and Denies dyspnea on exertion GI Denies hematochezia and Denies change in stool character Musc Details: bilateral knee pains Denies abnormal gait, Reports limited range of motion, Denies muscle cramps, Denies muscle weakness, Denies numbness, Denies radiating pain into limb, Denies stiffness and Denies tingling Neuro Denies abnormal gait, Denies dizziness, Denies numbness and Denies tingling Endo Denies palpitations Physical Exam Vital Signs: Last Vital Signs Pulse 73 04/03/23 08:35 BP 140/62 H 04/03/23 08:35 BMI result Body Mass Index 46.4 Const Other: morbidly obese General: cooperative, healthy appearing, comfortable and no acute distress Orientation/consciousness: patient oriented x3 Neck Neck: Yes normal visual inspection and Yes no JVD Resp Effort & Inspection: normal respiratory effort Auscultation: clear to auscultation bilaterally, no crackles, no rales, no rhonchi and no wheezes Cardio Jugular venous distension: no JVD Rate: regular rate Rhythm: regular rhythm Heart sounds: S1 normal heart sound present, S2 normal heart sound present, no gallops, no murmurs and no rubs Neuro General: patient oriented x3 Extrem General: Yes normal to inspection and No no pedal edema Psych Appearance: grossly normal Mental Status: mental status grossly normal Speech and movement: Normal speech and movement present Office Procedures EKG Details: Today, read by me, sinus rhythm, first-degree AV block, low-voltage QRS, nonspecific T-wave abnormality, rate 73, QTC 453 millisecond [id number], Complete Assessment & Plan Assessment & Plan (1) PAF (paroxysmal atrial fibrillation): Code(s): I48.0 - Paroxysmal atrial fibrillation Plan: History of paroxysmal atrial fibrillation/flutter. Last known AFlutter 01/2022 with cardioversion at that time. Last echocardiogram done 02/07/2022 showed EF 60-65%, no valve abnormalities and no regional wall motion abnormalities. She has been maintained on flecainide 150 mg b.i.d., diltiazem 240 mg daily. EKG done today showing sinus rhythm with first-degree AV block QTC 453 milliseconds, rate 73. No known recurrent atrial fibrillation in over a year. She uses a smart watch to help her monitor heart rate and rhythm. She is on Eliquis for anticoagulation. No bleeding issues reported. Labs done 12/27/2022 showed creatinine 0.7. Continue current med management. Cardiology follow-up in 4 months, sooner if needed. Emergency care if ever needed for sustained rapid heart palpitations. (2) Atrial flutter: Code(s): I48.92 - Unspecified atrial flutter Plan: As above (3) First degree AV block: Code(s): I44.0 - Atrioventricular block, first degree Plan: New finding on EKG today. (4) Graves disease: Code(s): E05.00 - Thyrotoxicosis with diffuse goiter without thyrotoxic crisis or storm Plan: Follows with endocrinology. Last TSH 0.01 on 12/27/2022. On methimazole (5) Morbid obesity: Code(s): E66.01 - Morbid (severe) obesity due to excess calories Plan: Follows with [facility] weight loss program. Weight is down approximately 70 lb Plan Time spent on chart review, documentation, interview and assessment Coding Level of Care Code Est Pt Level 4 (28927) Diagnoses PAF (paroxysmal atrial fibrillation) I48.0 Atrial flutter I48.92 First degree AV block I44.0 Graves disease E05.00 Morbid obesity E66.01 CPT Codes EKG - CPT: 94243-[id number], Complete ([id number]) Time Spent (min) 28
[2023-04-03 08:35] VITALS: BP 140/62; PULSE 73; BMI 46.4
== END 2023-04-03 09:02 | disposition home or self-care (01) ==
PROVIDERS: PCP Internal Medicine; Visit Provider Nurse Practitioner Family
DX: I48.0 Paroxysmal atrial fibrillation (principal); I48.92 Unspecified atrial flutter; I44.0 Atrioventricular block, first degree; E05.00 Thyrotoxicosis with diffuse goiter without thyrotoxic crisis or storm; E66.01 Morbid (severe) obesity due to excess calories
CPT/HCPCS: 93010; 99214

== ENCOUNTER → 2023-04-03 08:30 | Outpatient (BNVA) | payer BC, SELFPAY | PROVIDERS: PCP Internal Medicine; Visit Provider Nurse Practitioner Family | DX: I48.0 Paroxysmal atrial fibrillation (principal); I48.92 Unspecified atrial flutter; I44.0 Atrioventricular block, first degree; E05.00 Thyrotoxicosis with diffuse goiter without thyrotoxic crisis or storm; E66.01 Morbid (severe) obesity due to excess calories; Z68.42 Body mass index [BMI] 45.0-49.9, adult; Z79.01 Long term (current) use of anticoagulants; Z79.899 Other long term (current) drug therapy | CPT/HCPCS: 93005 ==

== ENCOUNTER 2023-04-18 09:41 | Outpatient (REF) | payer BC, SELFPAY ==
[2023-04-18 13:59] LABS: Alanine Aminotransferase 12 U/L (0-31); Albumin Level 3.8 g/dL (3.5-5.0); Alkaline Phosphatase 82 U/L (39-117); Anion Gap 14 (12-20); Aspartate Amino Transferase 15 U/L (5-31); Bilirubin Total 0.4 mg/dL (0.0-1.0); Blood Urea Nitrogen 11 mg/dL (9-16); Calcium 9.3 mg/dL (8.4-10.2); Carbon Dioxide 26 mmol/L (22-29); Chloride 105 mmol/L (96-108); Estimated Glomerular Filt Rate > 60; Glucose Random 127 mg/dL (60-115); Potassium 3.8 mmol/L (3.3-5.1); Sodium 141 mmol/L (135-145); Total Protein 6.6 g/dL (6.5-8.0)
[2023-04-18 14:07] LABS: Free T4 (Free Thyroxine) 0.98 ng/dL (0.71-1.85); Thyroid Stimulating Hormone 0.78 uIU/mL (0.32-4.0)
== END 2023-04-18 09:42 | disposition home or self-care (01) ==
LOC: HO.HMGCLDS 09:41
PROVIDERS: PCP Internal Medicine; Visit Provider Internal Medicine
DX: E05.00 Thyrotoxicosis with diffuse goiter without thyrotoxic crisis or storm (principal)
CPT/HCPCS: 36415; 80053; 84439; 84443; 84481

== ENCOUNTER → 2023-05-07 08:47 | Outpatient (REF) | payer BC, SELFPAY ==
--- NOTE | 2023-05-07 08:50 | CA_ITS ---
Transthoracic Echocardiogram Patient (Last, First, Middle): Corazon Cortez A Gender: Female Date of : 1970 Age: 52 Procedure Date: 05/07/2023 Procedure Type: Transthoracic Echocardiogram Location: OP Height: 170.18 cm Weight: 143.79 kg BSA: 2.46 m2 Heart Rate: bpm BP: 124 / 72 mmHg Furniture Arranger: YUNIOR Referring MD: Guanakito Tyler MD [employer] Order Filler: Michael Pollock MD Symptoms: Paf 148.0 Study Quality: Fair ECG Rhythm: Sinus Conclusions: - 1. Normal LV systolic function with impaired relaxation filling pattern 2. Mildly dilated left atrium 3. Mitral annular calcification with normal cardiac valvular Doppler 4. Mildly dilated ascending aorta at 3.7 cm 5. Normal RV systolic pressure 6. No gross pericardial effusion Findings Left Ventricle Normal left ventricular size, thickness, and systolic function. The visually estimated ejection fraction is between 60-65%. Spectral Doppler is indicative of an impaired relaxation filling pattern. E/E prime ratio is between 8 and 15 consistent with indeterminate filling pressures. Right Ventricle The right ventricle was not well visualized. There is normal right ventricular systolic function. Atria The left atrium is mildly dilated. There is lipomatous hypertrophy of the interatrial septum. There is no evidence of interatrial shunt. The right atrium is likely dilated. Aortic Valve The aortic valve was not well visualized. There is no aortic valve stenosis. There is no aortic valve regurgitation. Mitral Valve There is mild anterior and posterior mitral leaflet thickening. There is mild mitral annular calcification. There is trace mitral valve regurgitation. There is no mitral valve stenosis. Pulmonic Valve The pulmonic valve was not well visualized. Tricuspid Valve The tricuspid valve was not well visualized. Tricuspid regurgitation envelope is inadequate for calculation of right ventricular systolic pressure. Normal right atrial pressure. Great Vessels The pulmonary artery was not well visualized. There is mild dilatation of the ascending aorta measuring 3.70 cm. Venous The inferior vena cava is normal in size. Pericardium/Pleural The pericardium was not well visualized. There is no evidence of pericardial effusion. Prior Study Comparison Changes noted compared to prior study dated: 02/07/2022. ascending aorta is mildly dilated Measurements 2D Linear Measurements IVSd: 1.17 0.6-0.9/0.6-1.0 cm LVIDd: 4.81 3.9-5.3/4.2-5.9 cm LVIDd Index: 1.96 2.4-3.2/2.2-3.1 cm/m2 LVIDs: 3.34 2.0-3.6 cm LVPWd: 1.04 0.7-1.1 cm LA Diam: 4.00 2.7-3.8/3.0-4.0 cm LAIDs Index: 1.63 1.5-2.3 cm/m2 LV Mass: 244.05 67-162/88-224 g LV Mass Index: 99.21 43-95/49-115 g/m2 LVOT Diam: 2.00 3.0+(-)1.3 cm 2D Systolic Function EF 4C: 65.50 >55% EF 2C: 65.50 >55% EF BiP: 65.40 >55% Mitral Valve MV Pk E: 0.97 MV PK A: 0.92 MV Decel Time: 245.00 E/A: 1.10 E'Lateral: 9.68 E'Medial: 7.07 E/E' Med: 13.70 E/E' Lat: 10.00 PHT: 72.00 MVA PHT: 3.06 Decel [place]: 3.95 Aortic Valve AoV Pk Sheng: 1.31 AoV Mn Sheng: 0.93 AoV VTI: 0.31 AoV Pk Grad: 7.00 Aov Mn Grad: 4.00 ANISA Cont.VTI: 2.51 LVOT LVOT Pk Sheng: 0.97 LVOT Mn Sheng: 0.66 LVOT VTI: 0.25 LVOT Pk Grad: 4.00 LVOT Mn Grad: 2.00 LVOT Diam: 2.00 LVOT Area: 3.14 Diastolic Function MV Pk E: 0.97 MV Pk A: 0.92 E/A: 1.10 E'Medial: 7.07 E/E' Med: 13.70 E' Laterial: 9.68 E/E' Lat: 10.00 Right Ventricle TAPSE (mm): 33.20 TVS' Sheng: 13.80 Tricuspid Valve RA Press: 3.00 Great Vessels Aorta Sinus of Valsalva: 3.65 2.0-3.[address] [place]: 2.68 1.7-3.4 cm Ao Asc: 3.70 2.1-3.4 cm Updated in Other Vendor System with Status of Final Michael Pollock MD electronically signed on 05/08/2023 5:36:17 PM with status of Final
== END ==
LOC: HO.CARD 08:47
PROVIDERS: Visit Provider Internal Medicine
DX: I48.0 Paroxysmal atrial fibrillation (principal)
CPT/HCPCS: 93306

== ENCOUNTER → 2023-05-07 08:50 | Outpatient (BNV) | payer BC, SELFPAY | PROVIDERS: Visit Provider Internal Medicine Cardiovascular Disease | DX: I48.0 Paroxysmal atrial fibrillation (principal); I34.0 Nonrheumatic mitral (valve) insufficiency | CPT/HCPCS: 93306 ==

== ENCOUNTER 2023-07-03 14:00 | Outpatient (AMB) | payer BC, SELFPAY ==
[2023-07-03 14:21] VITALS: BP 124/52; BMI 45.2
--- NOTE | 2023-07-03 14:21 | MHC.OFFVIS ---
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 She is doing well with concerns: rash externally. Lapse of care due to medical, history of postmenopausal bleeding not currently, history of thickened endometrium per ultrasound. Attempting to eat a healthy diet with calcium and vitamin D. No exercise with knee problems. Has lost 60 lb with her new medications. Currently sexually active w/. Denies any vaginal dryness. STI testing offered; she declines. Last pap smear; 2020-negative, history of ASCUS, prior KORIN 1, last previous negative Pap was 2017. Last mammogram; 2022. Colonoscopy is overdue. Denies any family history of breast, ovarian or colon cancer. [facility] Medical History (Updated 07/03/23 @ 15:04 by Stephanie Shafer CNM) Thickened endometrium Postmenopausal bleeding History of cardioversion Morbid obesity Graves disease Diabetes PAF (paroxysmal atrial fibrillation) Surgical History Hx of cholecystectomy H/O knee surgery History of hernia repair S/P removal of left ovary Family History Father CVD (cardiovascular disease) Heart attack Mother Lung cancer Social History (Updated 07/03/23 @ 14:41 by Stephanie Shafer CNM) Household Members: Spouse Housing: Apartment Comment: d/c from [employer] Patient Tobacco Use Status: Never used Tobacco Current occupational status: employed Current occupation: [employer], 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 Sexual orientation: Straight/Heterosexual Gender identity: Female Female Reproductive History Menstrual Age of Menarche: 7 control method: none Total pregnancies: 1 Full term: 1 Number of Living Children: 1 Date of last pap smear: 04/20/20 (negative) History of abnormal pap smear: Yes (2017 ASCUS) Date of Mammogram: 08/03/22 Review of Systems Const All systems reviewed & are unremarkable except as noted in HPI and below Reports as per HPI Eyes Reports no additional complaints ENT Reports no additional complaints Card Reports no additional complaints Resp Reports no additional complaints GI Reports as per HPI and Reports no additional complaints Reports as per HPI Musc Reports no additional complaints Skin/Breast Reports as per HPI Neuro Reports no additional complaints Psych Reports no additional complaints Endo Reports no additional complaints Chandana/Lymph Reports no additional complaints Aller/Immun Reports no additional complaints Physical Exam Vital Signs: Last Vital Signs BP 124/52 L 07/03/23 14:21 BMI result Body Mass Index 45.2 Const General: cooperative, healthy appearing, no acute distress, well developed and alert Orientation/consciousness: patient oriented x3 HEENT Head: Yes normal to inspection Eyes General: appearance normal, both eyes and all related structures Neck Neck: Yes normal visual inspection Thyroid: Thyroid normal Chest Chest palpation & inspection: normal inspection of the chest and other (no puckering, dimpling, peau de orange, retraction, discharge, masses) Breast/axilla inspection: normal inspection of the breasts Breast/axilla palpation: normal palpation of the breasts Resp Effort & Inspection: normal respiratory effort GI Inspection: Yes normal to inspection, Yes Abdominal panniculus present and Yes obesity Palpation (GI): Soft to palpation Rectal Exam - Female: deferred Other: External hypopigmentation appears as lichen sclerosus, with scattered excoriations anteriorly and on the left gluteal area, upper thigh erythema no lesions or rashes General: Yes bladder normal to palpation External Female Exam: normal external appearance and normal appearance of the urethra Speculum Exam - Vagina: normal appearance of the vagina, normal palpation and normal vaginal discharge Speculum Exam - Cervix: normal appearance of the cervix and normal palpation Bimanual exam- vagina & uterus: normal bimanual exam, normal palpation, bladder normal to palpation, normal palpation, non-tender and other (Difficult to outline due to body habitus) Bimanual Exam- Adnexa, other: no masses Skin General skin exam: no rashes or lesions noted Rashes: no rashes Neuro General: patient oriented x3 Cognition (Neuro): normal cognition Extrem General: Yes normal to inspection Psych Attitude: cooperative Thought process: Normal thought process present Assessment & Plan Assessment & Plan (1) Encounter for well woman exam with routine gynecological exam: Code(s): Z01.419 - Encounter for gynecological examination (general) (routine) without abnormal findings Category: Medical (2) Thickened endometrium: Code(s): R93.89 - Abnormal findings on diagnostic imaging of other specified body structures Category: Medical (3) Vulvar rash: Code(s): R21 - Rash and other nonspecific skin eruption Plan Discussed: Current recommendations for pap smears per ASCCP guidelines. Breast awareness, periodic self breast exams and yearly mammogram. Maintain a healthy lifestyle, well balanced diet including Calcium 1,200 mg and Vitamin D 600 IU daily, and routine exercise. Advised endometrial biopsy patient declined EMB procedure said she would not be able to tolerate in office in wants to be put to sleep. Advised she speak with Dr. Brady regarding hysteroscopy. Contact the office with any postmenopausal bleeding. Rx for external irritation plan follow up in 4 weeks or sooner if needed do a skin biopsy at that time if indicated, advised not to scratch, reviewed using a rinse bottle, pat drying, no chemicals sent it products, cotton underwear, air dry. If skin is not improving or worsening itching to return to the office sooner for a more immediate care. Patient verbalizes understanding and agrees to the plan of care. She was given opportunity to ask questions and all questions were answered to the best of my ability. RTO in 1 year for annual insurance business analyst exam. This note is constructed using voice recognition software. While every effort has been made to ensure accuracy, garage hand errors may have been included. Orders: Orders MM tomosynthesis screening BI Today Z12.31 - Encounter for screening mammogram for malignant neoplasm of breast Medications: New betamethasone, augmented 0.05 % apply to the area at bedtime a thin coat, for two weeks, then every other day for two weeks and then twice a week 1 appl topical BEDTIME 45 grams 1RF allergic reaction Coding Level of Care Code Est Pt Prev Care 40-64y(08627) Diagnoses Encounter for well woman exam with routine gynecological exam Z01.419 Thickened endometrium R93.89 Vulvar rash R21
== END 2023-07-03 15:11 | disposition home or self-care (01) ==
PROVIDERS: PCP Internal Medicine; Visit Provider Advanced Practice Midwife
DX: Z01.419 Encounter for gynecological examination (general) (routine) without abnormal findings (principal); R93.89 Abnormal findings on diagnostic imaging of other specified body structures; R21 Rash and other nonspecific skin eruption
CPT/HCPCS: 99396

== ENCOUNTER → 2023-07-03 14:00 | Outpatient (BNVA) | payer BC, SELFPAY | PROVIDERS: PCP Internal Medicine; Visit Provider Advanced Practice Midwife ==

== ENCOUNTER 2023-07-09 10:44 | Outpatient (AMB) | payer BC, SELFPAY ==
--- NOTE | 2023-07-09 10:52 | A.OFFVIS_ITS ---
VS Expanded 07/09/23 10:56 07/09/23 11:02 Height 5 ft 8 in 5 ft 8 in Weight 295 lb 13.765 oz 296 lb BMI 45.0 45.0 Intake Visit Reasons: Morbid Obesity/LVM Allergies No Known Allergies Allergy (Verified 07/03/23 14:23) Nutrition Presentation Details: Pt presents for MNT for T2DM and obesity. The Pt was referred by Dr. Tyler food frequency fish: 0-1/m fruits0-1/d ve x/wk dairy: 4/d starches > 20/d beverages: water/diet omar physical activity: daily life activities ETOH/SMoking----- BS Monitoring Most Recent Diabetes Results: Microalb/Creat Ratio 10.1 ug/mg cr 09/27/22 Cholesterol 127 mg/dL 09/27/22 HDL Cholesterol 37 mg/dL 09/27/22 Triglycerides 139 mg/dL 09/27/22 Creatinine 0.82 mg/dL (0.5-1.4) 04/18/23 Blood Urea Nitrogen 11 mg/dL (9-16) 04/18/23 Sodium 141 mmol/L (135-145) 04/18/23 Potassium 3.8 mmol/L (3.3-5.1) 04/18/23 Chloride 105 mmol/L (96-108) 04/18/23 Carbon Dioxide 26 mmol/L (22-29) 04/18/23 Calcium 9.3 mg/dL (8.4-10.2) 04/18/23 AST 15 U/L (5-31) 04/18/23 ALT 12 U/L (0-31) 04/18/23 Total Protein 6.6 g/dL (6.5-8.0) 04/18/23 Albumin 3.8 g/dL (3.5-5.0) 04/18/23 TYD-Adkjddj-Le.Jeor Equation Height: 5 ft 8 in Weight: 296 lb Resting Metabolic Rate: 1989.19 Calculated Activity Level: Sedentary Calories Needed to Maintain Weight: 2387.03 Diagnosis Nutrition problem #1: food nutri know defi As related to (etiology) #1: diagnosis As evidenced by (sign/symptom) #1: knowledge deficit of diet Monitoring/Goals Nutrition problem monitoring: level of knowledge/skill and weight Learning/Education Readiness to learn: good [facility] Medical History (Updated 07/03/23 @ 15:04 by Stephanie Shafer CNM) Thickened endometrium Postmenopausal bleeding History of cardioversion Morbid obesity Graves disease Diabetes PAF (paroxysmal atrial fibrillation) Surgical History Hx of cholecystectomy H/O knee surgery History of hernia repair S/P removal of left ovary Family History Father CVD (cardiovascular disease) Heart attack Mother Lung cancer Social History (Updated 07/03/23 @ 14:41 by Stephanie Shafer CNM) Household Members: Spouse Housing: Apartment Comment: d/c from [employer] Patient Tobacco Use Status: Never used Tobacco Current occupational status: employed Current occupation: [employer], 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 Sexual orientation: Straight/Heterosexual Gender identity: Female Female Reproductive History Menstrual Age of Menarche: 7 Assessment & Plan Assessment & Plan (1) Diabetes: Code(s): E11.9 - Type 2 diabetes mellitus without complications Category: Medical Plan: Wt: 134 Kg ( 06/2023 ) Est kcal needs as per MSJ: 2500 (40% carb, 30% protein/fat) Est fluid needs as per 25-30 ml/d: 4000 Est prot per day as per 1 g/kg bw: 134 Recommend fiber intake : 8-10 g per day and gradually increase to 25-28 g per day for women and 35-38 g for men or as tolerated Recommend sodium intake per day : less than 2000 mg Educated patient on: ( R = reviewed V = verbalizes understanding N/R = needs review N/A = not applicable * Food sources of carbohydrate, adequate serving sizes and its role in various health conditions: R * Differences between complex carbohydrates a simple carbohydrates, role of fiber in diet: R V N/R * Lean protein sources of foods: R V NR * Differences between types of fats and role in diet (mono on saturated fat fatty acids, saturated fatty acids, trans fats): R V N/R * Food sources of sodium in salt and healthy modifications for heart health in kidney health: R V R/V * Vitamins and minerals: R V N/R * Healthy plate method concept: R * Physical activity: Benefits a precaution: R V N/R * Hypoglycemia protocol (rule of 15): R * Dietary prevention of Hyperglycemia: R Patient Instructions: Work on reducing carbs to 75 g or less per meal following healthy plate method (3 meals per day and 0-20 g as sanc 3 snacks/day practice mindful eating strategies Coding Level of Care Code Nutr Indiv Intake (34939) Diagnoses Diabetes E11.9 Time Spent (min) 30
[2023-07-09 10:56] VITALS: BMI 45.0
[2023-07-15 13:11] VITALS: BMI 45.0
== END 2023-07-09 11:40 | disposition home or self-care (01) ==
PROVIDERS: PCP Internal Medicine; Visit Provider Dietitian, Registered
DX: E11.9 Type 2 diabetes mellitus without complications (principal)

== ENCOUNTER → 2023-07-09 10:44 | Outpatient (BNVA) | payer BC, SELFPAY | PROVIDERS: Visit Provider Dietitian, Registered | DX: E11.9 Type 2 diabetes mellitus without complications (principal); E66.01 Morbid (severe) obesity due to excess calories; Z68.42 Body mass index [BMI] 45.0-49.9, adult; Z71.3 Dietary counseling and surveillance | CPT/HCPCS: 97802 ==

== ENCOUNTER 2023-08-05 10:33 | Outpatient (REF) | payer BC, SELFPAY ==
[2023-08-05 10:58] LABS: MANUAL DIFF FLAG NO
[2023-08-05 11:11] LABS: Basophils Percent Auto 0.2 % (0-2); Eosinophils Absolute Auto 0.2 X10*3/uL (0.0-0.4); Eosinophils Percent Auto 2.8 % (0-4); Hematocrit 41.2 % (37.0-47.0); Hemoglobin 13.6 g/dl (12.0-16.0); Imm Gran Abs Auto 0.03 X10*3/uL (0.00-0.03); Imm Gran Pct Auto 0.4 % (0.0-0.4); Lymphocytes Absolute Auto 1.5 X10*3/uL (1.2-4.9); Lymphocytes Percent Auto 18.3 % (20-40); Mean Corpuscular Hemoglobin 29.1 pg (27.0-33.0); Mean Corpuscular Volume 88.2 fL (80.0-98.0); Monocytes Absolute Auto 0.5 X10*3/uL (0.1-1.2); Monocytes Percent Auto 6.3 % (2-11); Neutrophils Absolute Auto 5.9 x10*3/uL (2.0-8.3); Platelet Count 286 X10*3/uL (160-400); Red Blood Count 4.67 X10*6/uL (4.20-5.50); Red Cell Distribution Width 12.8 % (11.0-16.0); White Blood Count 8.2 X10*3/uL (4.8-10.8)
[2023-08-05 11:56] LABS: Iron 61 mcg/dL (30-160); Percent Iron Saturation 23 % (15-50); Total Iron Binding Capacity 266 mcg/dL (228-428); Unsaturated Iron Binding 205 ug/dL
[2023-08-05 12:10] LABS: Vitamin D 25-OH Total 45.6 ng/mL (>30)
[2023-08-05 12:11] LABS: Folate 16.2 ng/mL (> or = 4.0); Vitamin B12 858 pg/mL (200-900)
== END 2023-08-05 10:34 | disposition home or self-care (01) ==
LOC: HO.10HDL 10:33
PROVIDERS: Visit Provider Internal Medicine
DX: E11.9 Type 2 diabetes mellitus without complications (principal); E78.00 Pure hypercholesterolemia, unspecified
CPT/HCPCS: 36415; 82306; 82607; 82746; 83540; 85025

== ENCOUNTER 2023-08-06 10:48 | Outpatient (AMB) | payer BC, SELFPAY ==
[2023-08-06 10:55] VITALS: BP 130/62; PULSE 77; BMI 44.2
--- NOTE | 2023-08-06 10:55 | A.OFFVIS_ITS ---
Vital Signs 08/06/23 10:55 Height 5 ft 8 in Weight 291 lb 0.163 oz BMI 44.2 BP 130/62 Blood Pressure Location Lt brachial Position Sitting Pulse 77 Pulse Source Monitor Intake Visit Reasons: 4m follow up Pediatric Medical Assistant Required: No Accompanied by: Self / Same As Patient Allergies No Known Allergies Allergy (Verified 07/03/23 14:23) Medication List - Last Reconciled 08/06/23 by Italo Cervantes MD acetaminophen 1,000 mg PO BEDTIME acetaminophen 650 mg PO DAILY apixaban 5 mg PO BID ascorbic acid (vitamin C) (Vitamin C) 500 mg PO DAILY atorvastatin 10 mg PO DAILY betamethasone, augmented 0.05 % 1 appl topical BEDTIME cholecalciferol (vitamin D3) (Vitamin D3) 25 mcg PO DAILY diltiazem HCl CD 240 mg PO BEDTIME flecainide 150 mg (1.5 x 100 mg) PO BID 90 days furosemide 20 mg PO DAILY 90 days magnesium oxide 400 mg PO BID metformin 500mg AM, 1000mg PM methimazole 5 mg PO Q2D naltrexone-bupropion 8-90 mg (Contrave) 2 tabs PO BID omeprazole 20 mg PO DAILY tirzepatide (Mounjaro) 10 mg subcut QWEEK HPI Comments Details: 52-year-old female who is here for follow-up. She recently presented to the clinic with palpitation and was in atrial flutter. She was admitted to the hospital underwent cardioversion. She was discharged home after that on flecainide 150 mg twice a day. She is on apixaban 5 mg twice a day. She has been stable since then. Denying any symptoms currently. she was seen by EP and was advised to lose weight. She had ECG in EP office today at [facility] which showed sinus rhythm. Taking meds. She is losing weight and has been on Mounjaro with better sugar control. 11/18/2022, she returns for follow-up. She has been following with weight management program has lost 16 lb at this stage. She is looking quite focused and has cut back significantly on her sugar intake. She is denying any significant symptoms otherwise. Taking medications regularly. No palpitations on follow-up. 08/06/23: She returns for f/u. She is doing well and has no significant palpitations. She has lost significant weight with Mounjaro. Taking medications regularly. [facility] Medical History (Updated 07/03/23 @ 15:04 by Stephanie Shafer CNM) Thickened endometrium Postmenopausal bleeding History of cardioversion Morbid obesity Graves disease Diabetes PAF (paroxysmal atrial fibrillation) Surgical History Hx of cholecystectomy H/O knee surgery History of hernia repair S/P removal of left ovary Family History Father CVD (cardiovascular disease) Heart attack Mother Lung cancer Social History Household Members: Spouse Housing: Apartment Comment: d/c from [facility] Patient Tobacco Use Status: Never used Tobacco Current occupational status: employed Current occupation: [employer], 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 Sexual orientation: Straight/Heterosexual Gender identity: Female Female Reproductive History Menstrual Age of Menarche: 7 Review of Systems Const Denies chills, Denies fatigue, Denies fever(s), Denies frequent falls, Denies weakness, Denies weight gain and Denies weight loss ENT Denies dizziness Card Denies chest pain, Denies leg edema, Denies lightheadedness, Denies palpitations, Denies dyspnea and Denies dyspnea on exertion Resp Denies cough, Denies dyspnea and Denies dyspnea on exertion GI Denies hematochezia Musc Denies abnormal gait, Denies muscle weakness, Denies numbness, Denies radiating pain into limb and Denies tingling Neuro Denies abnormal gait, Denies dizziness, Denies frequent falls, Denies numbness, Denies tingling and Denies weakness Endo Denies fatigue and Denies palpitations Physical Exam Vital Signs: Last Vital Signs Pulse 77 08/06/23 10:55 BP 130/62 08/06/23 10:55 BMI result Body Mass Index 44.2 GENERAL APPEARANCE: in no acute distress, pleasant. NECK: no carotid bruit, no jugular venous distention. SKIN: no suspicious lesions, warm and dry. HEART: no murmurs, regular rate and rhythm. LUNGS: clear to auscultation bilaterally. ABDOMEN: soft, nontender. EXTREMITIES: no edema. PERIPHERAL PULSES: equal. NEUROLOGIC: No gross deficits, AAO X 3 Office Procedures EKG Details: Sinus rhythm 77 beats per minute, first-degree AV block with IL interval 218 milliseconds, low voltage, QTC 482 milliseconds. [id number], Complete Assessment & Plan Assessment & Plan (1) Atrial flutter: Code(s): I48.92 - Unspecified atrial flutter Category: Medical (2) Morbid obesity: Code(s): E66.01 - Morbid (severe) obesity due to excess calories Category: Medical (3) PAF (paroxysmal atrial fibrillation): Code(s): I48.0 - Paroxysmal atrial fibrillation Category: Medical Plan Pleasant 53 year female who is here for follow-up. She has known history of atrial fibrillation and flutter in the past. She underwent cardioversion in the past and has been on flecainide 150 mg twice a day. She was referred for ablation but was advised to lose weight. She was referred to weight management program and has been following at [facility] at this point. She is changing her diet and has significantly cut back on her sugar intake. She has lost significant weight with diet and Mounjaro. Doing well from CV viewpoint. Continue flecainide and diltiazem. Thank you for allowing me to participate in the care of your patient. Please feel free to contact me if you have any questions. Coding Level of Care Code Est Pt Level 4 (62783) Diagnoses Atrial flutter I48.92 Morbid obesity E66.01 PAF (paroxysmal atrial fibrillation) I48.0 CPT Codes EKG - CPT: 80405-[id number], Complete ([id number])
== END 2023-08-06 11:19 | disposition home or self-care (01) ==
PROVIDERS: PCP Internal Medicine; Visit Provider Internal Medicine Cardiovascular Disease
DX: I48.92 Unspecified atrial flutter (principal); E66.01 Morbid (severe) obesity due to excess calories; I48.0 Paroxysmal atrial fibrillation
CPT/HCPCS: 93010; 99214

== ENCOUNTER → 2023-08-06 10:48 | Outpatient (BNVA) | payer BC, SELFPAY | PROVIDERS: PCP Internal Medicine; Visit Provider Internal Medicine Cardiovascular Disease | DX: I48.92 Unspecified atrial flutter (principal); I48.0 Paroxysmal atrial fibrillation; E66.01 Morbid (severe) obesity due to excess calories; Z68.41 Body mass index [BMI] 40.0-44.9, adult; Z79.899 Other long term (current) drug therapy | CPT/HCPCS: 93005 ==

== ENCOUNTER 2023-08-07 08:12 | Outpatient (AMB) | payer BC, SELFPAY ==
[2023-08-07 08:33] VITALS: BMI 44.6
--- NOTE | 2023-08-07 08:33 | A.OFFVIS_ITS ---
VS Expanded 08/07/23 08:33 Height 5 ft 8 in Weight 293 lb 3.437 oz BMI 44.6 Intake Visit Reasons: T2DM/LVM Allergies No Known Allergies Allergy (Verified 07/03/23 14:23) Nutrition Presentation Details: Pt presents for MNT for T2DM and morbid obesity. Pt was referred by Dr. Jose Tyler, PCP Pt reports doing well. Feeling motivated, working on diet modification, reducing on sugar/carb Pt's goal weight 200 lbs physical activity : 5 min stretches 2-3 x/wk BS Monitoring Most Recent Diabetes Results: Creatinine 0.82 mg/dL (0.5-1.4) 04/18/23 Blood Urea Nitrogen 11 mg/dL (9-16) 04/18/23 Sodium 141 mmol/L (135-145) 04/18/23 Potassium 3.8 mmol/L (3.3-5.1) 04/18/23 Chloride 105 mmol/L (96-108) 04/18/23 Carbon Dioxide 26 mmol/L (22-29) 04/18/23 Calcium 9.3 mg/dL (8.4-10.2) 04/18/23 AST 15 U/L (5-31) 04/18/23 ALT 12 U/L (0-31) 04/18/23 Total Protein 6.6 g/dL (6.5-8.0) 04/18/23 Albumin 3.8 g/dL (3.5-5.0) 04/18/23 [facility] Medical History (Updated 07/03/23 @ 15:04 by Stephanie Shafer CNM) Thickened endometrium Postmenopausal bleeding History of cardioversion Morbid obesity Graves disease Diabetes PAF (paroxysmal atrial fibrillation) Surgical History Hx of cholecystectomy H/O knee surgery History of hernia repair S/P removal of left ovary Family History Father CVD (cardiovascular disease) Heart attack Mother Lung cancer Social History Household Members: Spouse Housing: Apartment Comment: d/c from [employer] Patient Tobacco Use Status: Never used Tobacco Current occupational status: employed 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[employer], 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 Sexual orientation: Straight/Heterosexual Gender identity: Female Female Reproductive History Menstrual Age of Menarche: 7 Assessment & Plan Assessment & Plan (1) Diabetes: Code(s): E11.9 - Type 2 diabetes mellitus without complications Category: Medical Plan: Wt: 134 Kg ( 06/2023 ) 133 kg () Est kcal needs as per MSJ: 2500 (40% carb, 30% protein/fat) Est fluid needs as per 25-30 ml/d: 4000 Est prot per day as per 1 g/kg bw: 134 Recommend fiber intake : 8-10 g per day and gradually increase to 25-28 g per day for women and 35-38 g for men or as tolerated Recommend sodium intake per day : less than 2000 mg Educated patient on: ( R = reviewed V = verbalizes understanding N/R = needs review N/A = not applicable * Food sources of carbohydrate, adequate serving sizes and its role in various health conditions: R * Differences between complex carbohydrates a simple carbohydrates, role of fiber in diet: R V N/R * Lean protein sources of foods: R V NR * Differences between types of fats and role in diet (mono on saturated fat fatty acids, saturated fatty acids, trans fats): R V N/R * Food sources of sodium in salt and healthy modifications for heart health in kidney health: R * Vitamins and minerals: R V N/R * Healthy plate method concept: R * Physical activity: Benefits a precaution: R V N/R * Hypoglycemia protocol (rule of 15): R * Dietary prevention of Hyperglycemia: R Patient Instructions: Continue working on following healthy plate method, reducing on sugars Coding Level of Care Code Nutr Indiv Subseq (62569) Diagnoses Diabetes E11.9 Time Spent (min) 20
== END 2023-08-07 09:12 | disposition home or self-care (01) ==
PROVIDERS: PCP Internal Medicine; Visit Provider Dietitian, Registered
DX: E11.9 Type 2 diabetes mellitus without complications (principal)

== ENCOUNTER 2023-08-07 09:23 | Outpatient (REF) | payer BC, SELFPAY | END 2023-08-07 09:24 | disposition home or self-care (01) | LOC: HO.MAMMO 09:23 | PROVIDERS: PCP Internal Medicine; Visit Provider Advanced Practice Midwife | DX: Z12.31 Encounter for screening mammogram for malignant neoplasm of breast (principal) | CPT/HCPCS: 77063; 77067; 97803 ==

== ENCOUNTER → 2023-08-07 09:45 | Outpatient (BNV) | payer BC, SELFPAY | PROVIDERS: PCP Internal Medicine; Visit Provider Radiology Diagnostic Radiology | DX: Z12.31 Encounter for screening mammogram for malignant neoplasm of breast (principal) | CPT/HCPCS: 77063; 77067 ==

== ENCOUNTER 2023-09-09 08:58 | Outpatient (REF) | payer BC, SELFPAY ==
[2023-09-09 11:00] LABS: Free T4 (Free Thyroxine) 1.07 ng/dL (0.71-1.85); Thyroid Stimulating Hormone 0.11 uIU/mL (0.32-4.0)
== END 2023-09-09 08:59 | disposition home or self-care (01) ==
LOC: HO.HMGCLDS 08:58
PROVIDERS: PCP Internal Medicine; Visit Provider Internal Medicine
DX: E03.9 Hypothyroidism, unspecified (principal)
CPT/HCPCS: 36415; 84439; 84443

== ENCOUNTER 2023-09-29 10:26 | Outpatient (AMB) | payer BC, SELFPAY ==
--- NOTE | 2023-09-29 10:37 | MHC.AMNUTRGE ---
VS Expanded 09/29/23 10:38 Height 5 ft 8 in Weight 306 lb 10.608 oz BMI 46.6 Intake Visit Reasons: [id number] Allergies No Known Allergies Allergy (Verified 07/03/23 14:23) Nutrition Presentation Details: Pt presents for MNT f/u for T2DM Pt reports gradually working on diet modifications, including fiber rich foods and food sources of probiotic/prebiotics physical activity: daily 7 minutes on the stepper BS Monitoring Most Recent Diabetes Results: No Data to Display PFSH Medical History (Updated 07/03/23 @ 15:04 by Stephanie Shafer CNM) Thickened endometrium Postmenopausal bleeding History of cardioversion Morbid obesity Graves disease Diabetes PAF (paroxysmal atrial fibrillation) Surgical History Hx of cholecystectomy H/O knee surgery History of hernia repair S/P removal of left ovary Family History Father CVD (cardiovascular disease) Heart attack Mother Lung cancer Social History Household Members: Spouse Housing: Apartment Comment: d/c from [facility] Patient Tobacco Use Status: Never used Tobacco Current occupational status: employed 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, 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 Sexual orientation: Straight/Heterosexual Gender identity: Female Female Reproductive History Menstrual Age of Menarche: 7 Assessment & Plan Assessment & Plan (1) Diabetes: Code(s): E11.9 - Type 2 diabetes mellitus without complications Category: Medical Plan: Wt: 134 Kg ( 06/2023 ) 133 kg (), 139.5(09/2023) Est kcal needs as per MSJ: 2500 (40% carb, 30% protein/fat) Est fluid needs as per 25-30 ml/d: 4000 Est prot per day as per 1 g/kg bw: 134 Recommend fiber intake : 8-10 g per day and gradually increase to 25-28 g per day for women and 35-38 g for men or as tolerated Recommend sodium intake per day : less than 2000 mg Educated patient on: ( R = reviewed V = verbalizes understanding N/R = needs review N/A = not applicable Food sources of carbohydrate, adequate serving sizes and its role in various health conditions: R Differences between complex carbohydrates a simple carbohydrates, role of fiber in diet: R V N/R Lean protein sources of foods: R V NR Differences between types of fats and role in diet (mono on saturated fat fatty acids, saturated fatty acids, trans fats): R V N/R Food sources of sodium in salt and healthy modifications for heart health in kidney health: R Vitamins and minerals: R V N/R Healthy plate method concept: R Physical activity: Benefits a precaution: R V N/R Hypoglycemia protocol (rule of 15): R Dietary prevention of Hyperglycemia: R Patient Instructions: Resume working on watching portions of carbohydrates/sugars in the evening to less than 80 g following healthy plate method Coding Level of Care Code Nutr Indiv Subseq (71885) Diagnoses Diabetes E11.9 Time Spent (min) 25
[2023-09-29 10:38] VITALS: BMI 46.6
== END 2023-09-29 10:54 | disposition home or self-care (01) ==
PROVIDERS: PCP Internal Medicine; Visit Provider Dietitian, Registered
DX: E11.9 Type 2 diabetes mellitus without complications (principal)

== ENCOUNTER → 2023-09-29 10:26 | Outpatient (BNVA) | payer BC, SELFPAY | PROVIDERS: PCP Internal Medicine; Visit Provider Dietitian, Registered | DX: E11.9 Type 2 diabetes mellitus without complications (principal); Z71.3 Dietary counseling and surveillance | CPT/HCPCS: 97803 ==

== ENCOUNTER 2023-10-21 07:56 | Outpatient (REF) | payer BC, SELFPAY ==
[2023-10-21 11:04] LABS: Alanine Aminotransferase 10 U/L (0-31); Albumin Level 3.9 g/dL (3.5-5.0); Alkaline Phosphatase 101 U/L (39-117); Anion Gap 12 (12-20); Aspartate Amino Transferase 15 U/L (5-31); Bilirubin Total 0.4 mg/dL (0.0-1.0); Blood Urea Nitrogen 12 mg/dL (9-16); Calcium 9.6 mg/dL (8.4-10.2); Carbon Dioxide 28 mmol/L (22-29); Chloride 103 mmol/L (96-108); Cholesterol 151 mg/dL (<200); Estimated Glomerular Filt Rate > 60; Glucose Random 133 mg/dL (60-115); HDL Cholesterol 46 mg/dL (>40); LDL Cholesterol Calculated 82 mg/dL (<100); Potassium 4.1 mmol/L (3.3-5.1); Sodium 139 mmol/L (135-145); Total Protein 6.5 g/dL (6.5-8.0); Triglycerides 118 mg/dL (<150)
[2023-10-21 11:09] LABS: Estimated Average Glucose 111 mg/dL; Hemoglobin A1c % 5.5 % (<6.0)
[2023-10-21 11:11] LABS: Free T4 (Free Thyroxine) 0.85 ng/dL (0.71-1.85); Thyroid Stimulating Hormone 0.94 uIU/mL (0.32-4.0)
[2023-10-21 11:19] LABS: Creatinine Urine 168.35 mg/dL; Microalbum/Creatinine Ratio Ur 5.3 ug/mg cr (<30)
[2023-10-22 15:59] LABS: Triiodothyronine T3 Free 3.1 pg/mL (2.3-4.2)
== END 2023-10-21 07:57 | disposition home or self-care (01) ==
LOC: HO.HMGCLDS 07:56
PROVIDERS: PCP Internal Medicine; Referring Provider Physician Assistant; Visit Provider Internal Medicine
DX: E11.42 Type 2 diabetes mellitus with diabetic polyneuropathy (principal)
CPT/HCPCS: 36415; 80053; 80061; 82043; 82570; 83036; 84439; 84443; 84481

== ENCOUNTER → 2023-12-16 07:55 | Outpatient (REF) | payer BC, SELFPAY | LOC: HO.SL 07:55 | PROVIDERS: PCP Internal Medicine; Visit Provider Internal Medicine | DX: G47.33 Obstructive sleep apnea (adult) (pediatric) (principal) | CPT/HCPCS: 95806 ==

== ENCOUNTER → 2023-12-16 19:00 | Outpatient (BNV) | payer BC, SELFPAY | PROVIDERS: PCP Internal Medicine; Visit Provider Internal Medicine | DX: R06.83 Snoring (principal) | CPT/HCPCS: 95806 ==

== ENCOUNTER 2023-12-29 09:18 | Outpatient (AMB) | payer BC, SELFPAY ==
--- NOTE | 2023-12-29 09:41 | A.OFFVIS_ITS ---
VS Expanded 12/29/23 09:43 Height 5 ft 8 in Weight 299 lb 6.204 oz BMI 45.5 Intake Visit Reasons: T2DM/LVM Allergies No Known Allergies Allergy (Verified 07/03/23 14:23) Nutrition Presentation Details: Pt presents for MNT f/u for T2DM Pt reports working on diet modifications, working on choosing lower fat protein source sof foods BS Monitoring Most Recent Diabetes Results: Microalb/Creat Ratio 5.3 ug/mg cr (<30) 10/21/23 Cholesterol 151 mg/dL (<200) 10/21/23 HDL Cholesterol 46 mg/dL (>40) 10/21/23 Triglycerides 118 mg/dL (<150) 10/21/23 Creatinine 0.84 mg/dL (0.5-1.4) 10/21/23 Blood Urea Nitrogen 12 mg/dL (9-16) 10/21/23 Sodium 139 mmol/L (135-145) 10/21/23 Potassium 4.1 mmol/L (3.3-5.1) 10/21/23 Chloride 103 mmol/L (96-108) 10/21/23 Carbon Dioxide 28 mmol/L (22-29) 10/21/23 Calcium 9.6 mg/dL (8.4-10.2) 10/21/23 AST 15 U/L (5-31) 10/21/23 ALT 10 U/L (0-31) 10/21/23 Total Protein 6.5 g/dL (6.5-8.0) 10/21/23 Albumin 3.9 g/dL (3.5-5.0) 10/21/23 [facility] Medical History (Updated 07/03/23 @ 15:04 by Stephanie Shafer CNM) Thickened endometrium Postmenopausal bleeding History of cardioversion Morbid obesity Graves disease Diabetes PAF (paroxysmal atrial fibrillation) Surgical History Hx of cholecystectomy H/O knee surgery History of hernia repair S/P removal of left ovary Family History Father CVD (cardiovascular disease) Heart attack Mother Lung cancer Social History Household Members: Spouse Housing: Apartment Comment: d/c from [employer] Patient Tobacco Use Status: Never used Tobacco Current occupational status: employed 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, 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 Sexual orientation: Straight/Heterosexual Gender identity: Female Female Reproductive History Menstrual Age of Menarche: 7 Assessment & Plan Assessment & Plan (1) Diabetes: Code(s): E11.9 - Type 2 diabetes mellitus without complications Category: Medical Plan: Wt: 134 Kg ( 06/2023 ) 133 kg (), 139.5(09/2023), 136 kg (01/17) Est kcal needs as per MSJ: 2500 (40% carb, 30% protein/fat) Est fluid needs as per 25-30 ml/d: 4000 Est prot per day as per 1 g/kg bw: 134 Recommend fiber intake : 8-10 g per day and gradually increase to 25-28 g per day for women and 35-38 g for men or as tolerated Recommend sodium intake per day : less than 2000 mg Educated patient on: ( R = reviewed V = verbalizes understanding N/R = needs review N/A = not applicable * Food sources of carbohydrate, adequate serving sizes and its role in various health conditions: R * Differences between complex carbohydrates a simple carbohydrates, role of fiber in diet: R V N/R * Lean protein sources of foods: R V NR * Differences between types of fats and role in diet (mono on saturated fat fatty acids, saturated fatty acids, trans fats): R * Food sources of sodium in salt and healthy modifications for heart health in kidney health: R * Vitamins and minerals: R V N/R * Healthy plate method concept: R * Physical activity: Benefits a precaution: R V N/R * Hypoglycemia protocol (rule of 15): R * Dietary prevention of Hyperglycemia: R Patient Instructions: Choose foods naturally gluten free (fruits, veg, poultry, eggs,oat, sweet potato) Keep hydrated by having water with meals, as increase water as you increase in fiber rich foods Coding Level of Care Code Nutr Indiv Subseq (36185) Diagnoses Diabetes E11.9 Time Spent (min) 30
[2023-12-29 09:43] VITALS: BMI 45.5
== END 2023-12-29 10:05 | disposition home or self-care (01) ==
LOC: HO.ENCR 09:19
PROVIDERS: PCP Internal Medicine; Visit Provider Dietitian, Registered
DX: E11.9 Type 2 diabetes mellitus without complications (principal)

== ENCOUNTER → 2023-12-29 09:18 | Outpatient (BNVA) | payer BC, SELFPAY | PROVIDERS: PCP Internal Medicine; Visit Provider Dietitian, Registered | DX: E11.9 Type 2 diabetes mellitus without complications (principal); Z71.3 Dietary counseling and surveillance | CPT/HCPCS: 97803 ==

== ENCOUNTER 2024-01-12 09:56 | Outpatient (REF) | payer BC, SELFPAY ==
[2024-01-12 13:42] LABS: Estimated Average Glucose 120 mg/dL; Hemoglobin A1C 142.9169 umol/L; Hemoglobin A1c % 5.8 % (<6.0); Total Hemoglobin (HGBA1C) 3618.5219 umol/L
[2024-01-12 14:07] LABS: Alanine Aminotransferase 10 U/L (0-31); Anion Gap 13 (12-20); Aspartate Amino Transferase 17 U/L (5-31); Blood Urea Nitrogen 13 mg/dL (9-16); Carbon Dioxide 28 mmol/L (22-29); Chloride 103 mmol/L (96-108); Estimated Glomerular Filt Rate > 60; Glucose Random 122 mg/dL (60-115); Potassium 4.4 mmol/L (3.3-5.1); Sodium 140 mmol/L (135-145)
[2024-01-12 14:23] LABS: TSH reflex Free T4 2.76 uIU/mL (0.32-4.0)
== END 2024-01-12 09:57 | disposition home or self-care (01) ==
LOC: HO.HMGCLDS 09:56
PROVIDERS: PCP Internal Medicine; Visit Provider Physician Assistant
DX: E11.42 Type 2 diabetes mellitus with diabetic polyneuropathy (principal)
CPT/HCPCS: 36415; 80048; 83036; 84443; 84450; 84460

== ENCOUNTER 2024-01-20 09:42 | Outpatient (AMB) | payer BC, SELFPAY ==
--- NOTE | 2024-01-20 09:44 | A.OFFVIS_ITS ---
Vital Signs 01/20/24 09:46 Height 5 ft 8 in Weight 297 lb 9.985 oz BMI 45.2 BP 124/84 Intake Visit Reasons: Hysteroscopy consult Allergies No Known Allergies Allergy (Verified 07/03/23 14:23) HPI Comments Details: Presenting referred from Stephanie azevedo not cm in regarding postmenopausal bleeding. The patient gives history of postmenopausal bleeding from November to May on and off. 12/15 pelvic ultrasound was done and showed the following: The uterus measures 8.6 x 3.6 x 4.2 cm. The uterus is anteverted. Trace fluid is seen within the cervix. The uterine contour is smooth. The endometrium measures 0.5 cm. The uterus is heterogeneous in echotexture which is a nonspecific finding but can be seen with uterine adenomyosis. No abnormal mass appreciated. The right ovary is not identified. No right adnexal abnormality is seen. The left ovary has been surgically removed. No left adnexal abnormality is appreciated. No significant free pelvic fluid. Last co testing was in 04/16 was negative last mammogram was in 08/17 was BI-RADS 1 The patient has declined endometrial sampling since then [facility] Medical History Thickened endometrium Postmenopausal bleeding History of cardioversion Morbid obesity Graves disease Diabetes PAF (paroxysmal atrial fibrillation) Surgical History Hx of cholecystectomy H/O knee surgery History of hernia repair S/P removal of left ovary Family History Father CVD (cardiovascular disease) Heart attack Mother Lung cancer Social History Household Members: Spouse Housing: Apartment [facility] Patient Tobacco Use Status: Never used Tobacco Current occupational status: employed 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, 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 Sexual orientation: Straight/Heterosexual Gender identity: Female Female Reproductive History Menstrual Age of Menarche: 7 Review of Systems Const All systems reviewed & are unremarkable except as noted in HPI and below Reports as per HPI and Reports no additional complaints GI Reports no additional complaints Reports no additional complaints Physical Exam Vital Signs: Last Vital Signs BP 124/84 01/20/24 09:46 BMI result Body Mass Index 45.2 Other: Deferred per patient's request Assessment & Plan Assessment & Plan (1) Postmenopausal bleeding: Code(s): N95.0 - Postmenopausal bleeding Category: Medical Plan: Discussed with the patient the pelvic ultrasound findings, the endometrial stripe thickenss measured by ultrasound was more than 4mm. The negative predictive value, positive predictive value, Sensitivity, specificity of using ultrasound measurement of endometrial stripe to detecting endometrial pathology including hyperplasia , polyp or cancer were discussed with the patient. Recommended to the patient that the next step is an endometrial sampling to rule out endometrial pathology including endometrial hyperplasia and/or malignancy via hysteroscopy D&C possible polypectomy versus endometrial biopsy to r/o endometrial pathology including hyperplasia or cancer. All the pros and cons ri sks and benefits of each approach were discussed with the patient, endometrial biopsy being less invasive, office procedure with less sensitivity and inability diagnose a polyp and removal versus hysteroscopy done under anesthesia more invasive more sensitive to endometrial cancer and possibility of diagnosing and endometrial polyp with the possibility of polypectomy. All questions were answered pt verbalized understanding and decided to proceed with endometrial biopsy. Instructions given the patient to schedule an appointment in 1-2 weeks for a pelvic exam and an EMB. All questions answered, the patient verbalized understanding Coding Level of Care Code Est Pt Level 3 (07970) Diagnoses Postmenopausal bleeding N95.0
[2024-01-20 09:46] VITALS: BP 124/84; BMI 45.2
== END 2024-01-20 10:05 | disposition home or self-care (01) ==
LOC: HO.HWS 09:42
PROVIDERS: PCP Internal Medicine; Visit Provider Obstetrics & Gynecology
DX: N95.0 Postmenopausal bleeding (principal)
CPT/HCPCS: 99213

== ENCOUNTER → 2024-01-20 09:42 | Outpatient (BNVA) | payer BC, SELFPAY | PROVIDERS: PCP Internal Medicine; Visit Provider Obstetrics & Gynecology ==

== ENCOUNTER 2024-02-05 07:55 | Outpatient (AMB) | payer BC, SELFPAY ==
[2024-02-05 07:56] VITALS: BP 130/70; BMI 45.2
--- NOTE | 2024-02-05 07:56 | A.OFFVIS_ITS ---
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 Required: No Information Interpreted: non-clinical & clinical Environmental Manager: Environmental Manager Present (Milly ANDREWS) Accompanied by: Self / Same As Patient Allergies No Known Allergies Allergy (Verified 02/05/24 08:22) Post menopausal: Yes HPI Comments Details: Presenting for EMB [facility] Medical History Thickened endometrium Postmenopausal bleeding History of cardioversion Morbid obesity Graves disease Diabetes PAF (paroxysmal atrial fibrillation) Surgical History Hx of cholecystectomy H/O knee surgery History of hernia repair S/P removal of left ovary Family History Father CVD (cardiovascular disease) Heart attack Mother Lung cancer Social History Household Members: Spouse Housing: Apartment Comment: d/c from [employer] Patient Tobacco Use Status: Never used Tobacco Current occupational status: employed Current occupation: [employer], 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 Sexual orientation: Straight/Heterosexual Gender identity: Female Female Reproductive History Menstrual Age of Menarche: 7 Review of Systems Const All systems reviewed & are unremarkable except as noted in HPI and below Reports as per HPI and Reports no additional complaints GI Reports no additional complaints Reports no additional complaints Physical Exam Vital Signs: BMI result Body Mass Index 45.2 Office Procedures Endometrial Biopsy Details: The patient was counseled regarding the indication and benefits of endometrial sampling to rule out endometrial pathology including not limited to endometrial hyperplasia or endometrial cancer and others; The alternatives (Either do nothing vs. hysteroscopy D&C) & the risks were discussed with the patient including but not limited: pain, uterine perforation, bleeding, infection, possible injury to bladder, bowel, ureter, possible need for blood transfusion with all its possible risks. The patient verbalized understanding all questions answered and signed consent. The patient was placed into the dorsal lithotomy position; a speculum was inserted in the vagina. Using aseptic technique for the procedure, the cervix was cleansed with Betadine. The anterior lip of the cervix was grasped with a single tooth tenaculum. The uterus was sounded to 7 cm with a 4 mm Pipelle was used. Tissues samples were obtained and placed in formalin, in a patient labeled container and sent to the pathology department. At the end of the procedure, there was minimal bleeding noted The patient tolerated the procedure well and was discharged in good condition with the following instructions: Nothing in the vagina until the bleeding stops. No sex until the bleeding stops, to call if any of the following occurs: fever (>100.4), flu-like symptoms, abdominal pain, heavy bleeding, four smelling vaginal discharge. The patient was instructed to schedule a Follow up appointment in 2 weeks to discuss pathology results of the biopsy and treatment options. This note was generated with a voice recognition program. Some errors may have been overlooked during the review of this note. Sometimes these errors may affect the content or meaning of a given sentence. [id number] Biopsy Assessment & Plan Assessment & Plan (1) Postmenopausal bleeding: Code(s): N95.0 - Postmenopausal bleeding Category: Medical Plan: EMB done, see procedure Orders: Orders AMB Endometrial Biopsy Today N95.0 - Postmenopausal bleeding Coding Level of Care Code Procedure Only Diagnoses Postmenopausal bleeding N95.0 CPT Codes Endometrial Biopsy - CPT: 00176-[id number] Biopsy ([id number])
--- OUTSIDE RECORDS SUMMARY | 2024-02-05 07:57 | XMS_ITS ---
Author Organization [facility] Address [address] [place] [address] Care Team Providers Care Customer Care Consultant Name Role Phone FINNMihai MADDIE Unavailable [phone] REASON FOR VISIT PA - contrave Encounters Encounter Location Date Provider Diagnosis [facility] [address] [facility] [address] [place] [address] 11/07/2023 MADDIE REYES PLAN OF TREATMENT Next Appt Details Provider Name:MADDIE REYES, 03/17/2024 01:45:00 PM, [address] [facility], [address], [place], [address], Progress Notes * Lexi CORTEZOB: [birth year] (53 yo F)Acc No.[id number]:11/07/2023 Patient:??Corazon CORTEZ :1970?Age:53 Y?Sex:Fe male Address:[place] [address] * true * Date:??
--- OUTSIDE RECORDS SUMMARY | 2024-02-05 07:57 | XMS_ITS ---
Author Organization [facility] Address [address] [place] [id number] Care Team Providers Care Wheelman Name Role Phone MADDIE REYES Unavailable [phone] ALLERGIES Allergen (clinical drug ingredient) Drug/Non Drug Allergy documented on EMR Reaction Allergy Type Onset Date Status ibuprofen Ibuprofen Blood thinner Drug Allergy Act indigo REASON FOR VISIT Pt seen in office for wt mgt f/u visit with [facility]. MEDICATIONS Medication SIG (Take, Route, Frequency, Duration) Notes Start Date End Date Status Flecainide Acetate 100 MG Oral for 90 Days Active Atorvastatin Calcium 10 MG Oral for 90 Days Active methIMAzole 5 MG 1 tablet Oral Once e very other day for 90 days Active Magnesium Oxide 400 MG Oral for 30 Days Active dilTIAZem HCl ER Coated Beads 240 MG Oral for 30 Days Active Furosemide 20 MG Oral for 30 Days Active metFORMIN HCl ER 750 MG 1 tablet with ev ening meal Orally Once a day for 90 days Active Contrave 8-90 MG Week 1, take 1 table t in the morning Week 2 take 1 tablet in the morning, 1 tablet in the evening Week 3 take 2 tablets in the morning, 1 tablet in the evening Week 4 onward 2 tablets in the morning, 2 tablets in the evening Orally twice a day for 30 days Active Eliquis 5 MG Oral for 30 Days Active Vitamin C Active Vitamin D (Cholecalciferol) 50 MCG (1999 UT) 1 capsule Orally Once a day Active Mounjaro 12.5 MG/0.5ML 12.5mg Subcutaneo us weekly for 30 days Active Vitamin B 12 500 MCG 1 tablet Orally Once a day Active Omeprazole 20 MG Oral for 30 Days Active Mounjaro 15 MG/0.5ML 15mg Subcutaneous w albino for 30 days 03/10/2023 Active SOCIAL HISTORY Tobacco Use: Social History Observation Description Date Details (start date - stop date) Never Smoker NA - NA Sex Assigned At : Social History Observation Description Sex Assigned At Unknown Tobacco Use/Smoking Question Answer Notes Are you a nonsmoker VITAL SIGNS Heart Rate 74 /min 12/18/2023 Blood pressure systolic 124 mm Hg 12/18/19 Blood pressure diastolic 80 mm Hg 024 Weight 300 lbs 12/18/2023 BMI 48.42 kg/m2 12/18/2023 Height 66 in 12/18/2023 Oximetry 97 % 12/18/2023 Encounters Encounter Location Date Provider Diagnosis [facility] [address] [facility] [address] [place] [address] 12/18/2023 MADDIE BRISENOMihai Morbid obesity E66.0 1 ; BMI 45.0-49.9, adult Z68.42 ; Dietary counseling and surveillance Z71.3 ; Type 2 diabetes mellitus without complication, without long-term current use of insulin E11.9 ; Graves disease E05.00 ; Chronic anticoagulation Z79.01 ; PAF (paroxysmal atrial fibrillation) I48.0 and NICHOLE (obstructive sleep apnea) G47.33 ASSESSMENTS Encounter Date Diagnosis Assessment Notes Treatment Notes Treatment Clinical Notes Section Notes 12/18/2023 Morbid obesity (ICD-10 - E66.01) #Weight Management 12/18/2023 Labs reviewed from [facility] September 2023 thriving Given ongoing weight loss this may be a recurrent problem until her weight stabilizes 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 frame tender and rechecking labs every 4 weeks or so and adjusting the methimazole dosing now qualifies for ortho surgery, R TKR Glycemic control much improved on dual incretin therapy cont Contrave for further appetite suppression and craving control She is currently not on any antidepressants Total time spent today was 30 minutes of which greater than 50% was spent on coordinating and counseling Patient has been found to be obese with a BMI of (48). Patient has class (3) obesity. We are a board certified obesity and weight management practice Patient has trialed behavioral modification, dietary restrictions and exercise for a minimum of 6 months The most recent [place] [employer] of clinical endocrinologists and [place] [employer] guidelines recommend patients who have overweight BMI or obesity BMI, who also have metabolic syndrome, prediabetes, or at risk of developing type 2 diabetes should aim for a weight loss goal of at least 10% of the baseline body weight Patient counseled regarding effects of GLP/GIP-1 agonists, and other FDA approved wgt loss meds with regards to a multifactorial approach of weight loss as mentioned above and not solely appetite suppression. Of note, some information is being carried forward from prior records for informational purposes only and is being cited so that efficiency, safety and quality of the patient's care is not compromised This note was prepared using voice recognition software and direct typing Please excuse inadvertent ride mechanic or typing errors, or uncorrected word substitutions Although every attempt has been made by the provider to proofread this document, occasional misspellings and typographical errors may still be present Due to the previous pandemic, and the use of personal protective equipment (PPE) This may decrease voice recognition accuracy Inadvertent ride mechanic errors may occur 12/18/2023 BMI 45.0-49.9, adult (ICD-10 - Z68.42) #Weight Management 12/18/2023 Labs reviewed from [facility] September 2023 thriving Given ongoing weight loss this may be a recurrent problem until her weight stabilizes 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 frame tender and rechecking labs every 4 weeks or so and adjusting the methimazole dosing now qualifies for ortho surgery, R TKR Glycemic control much improved on dual incretin therapy cont Contrave for further appetite suppression and craving control She is currently not on any antidepressants Total time spent today was 30 minutes of which greater than 50% was spent on coordinating and counseling Patient has been found to be obese with a BMI of (48). Patient has class (3) obesity. We are a board certified obesity and weight management practice Patient has trialed behavioral modification, dietary restrictions and exercise for a minimum of 6 months The most recent [place] [employer] of clinical endocrinologists and [place] [employer] guidelines recommend patients who have overweight BMI or obesity BMI, who also have metabolic syndrome, prediabetes, or at risk of developing type 2 diabetes should aim for a weight loss goal of at least 10% of the baseline body weight Patient counseled regarding effects of GLP/GIP-1 agonists, and other FDA approved wgt loss meds with regards to a multifactorial approach of weight loss as mentioned above and not solely appetite suppression. Of note, some information is being carried forward from prior records for informational purposes only and is being cited so that efficiency, safety and quality of the patient's care is not compromised This note was prepared using voice recognition software and direct typing Please excuse inadvertent ride mechanic or typing errors, or uncorrected word substitutions Although every attempt has been made by the provider to proofread this document, occasional misspellings and typographical errors may still be present Due to the previous pandemic, and the use of personal protective equipment (PPE) This may decrease voice recognition accuracy Inadvertent ride mechanic errors may occur 12/18/2023 Dietary counseling and surveillance (ICD-10 - Z71.3) #Weight Management 12/18/2023 Labs reviewed from [facility] September 2023 thriving Given ongoing weight loss this may be a recurrent problem until her weight stabilizes 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 frame tender and rechecking labs every 4 weeks or so and adjusting the methimazole dosing now qualifies for ortho surgery, R TKR Glycemic control much improved on dual incretin therapy cont Contrave for further appetite suppression and craving control She is currently not on any antidepressants Total time spent today was 30 minutes of which greater than 50% was spent on coordinating and counseling Patient has been found to be obese with a BMI of (48). Patient has class (3) obesity. We are a board certified obesity and weight management practice Patient has trialed behavioral modification, dietary restrictions and exercise for a minimum of 6 months The most recent [place] [employer] of clinical endocrinologists and [place] [employer] guidelines recommend patients who have overweight BMI or obesity BMI, who also have metabolic syndrome, prediabetes, or at risk of developing type 2 diabetes should aim for a weight loss goal of at least 10% of the baseline body weight Patient counseled regarding effects of GLP/GIP-1 agonists, and other FDA approved wgt loss meds with regards to a multifactorial approach of weight loss as mentioned above and not solely appetite suppression. Of note, some information is being carried forward from prior records for informational purposes only and is being cited so that efficiency, safety and quality of the patient's care is not compromised This note was prepared using voice recognition software and direct typing Please excuse inadvertent ride mechanic or typing errors, or uncorrected word substitutions Although every attempt has been made by the provider to proofread this document, occasional misspellings and typographical errors may still be present Due to the previous pandemic, and the use of personal protective equipment (PPE) This may decrease voice recognition accuracy Inadvertent ride mechanic errors may occur 12/18/2023 Type 2 diabetes mellitus without complication, without long-term current use of insulin (ICD-10 - E11.9) #Weight Management 12/18/2023 Labs reviewed from [facility] September 2023 thriving Given ongoing weight loss this may be a recurrent problem until her weight stabilizes 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 frame tender and rechecking labs every 4 weeks or so and adjusting the methimazole dosing now qualifies for ortho surgery, R TKR Glycemic control much improved on dual incretin therapy cont Contrave for further appetite suppression and craving control She is currently not on any antidepressants Total time spent today was 30 minutes of which greater than 50% was spent on coordinating and counseling Patient has been found to be obese with a BMI of (48). Patient has class (3) obesity. We are a board certified obesity and weight management practice Patient has trialed behavioral modification, dietary restrictions and exercise for a minimum of 6 months The most recent [place] [employer] of clinical endocrinologists and [place] [employer] guidelines recommend patients who have overweight BMI or obesity BMI, who also have metabolic syndrome, prediabetes, or at risk of developing type 2 diabetes should aim for a weight loss goal of at least 10% of the baseline body weight Patient counseled regarding effects of GLP/GIP-1 agonists, and other FDA approved wgt loss meds with regards to a multifactorial approach of weight loss as mentioned above and not solely appetite suppression. Of note, some information is being carried forward from prior records for informational purposes only and is being cited so that efficiency, safety and quality of the patient's care is not compromised This note was prepared using voice recognition software and direct typing Please excuse inadvertent ride mechanic or typing errors, or uncorrected word substitutions Although every attempt has been made by the provider to proofread this document, occasional misspellings and typographical errors may still be present Due to the previous pandemic, and the use of personal protective equipment (PPE) This may decrease voice recognition accuracy Inadvertent ride mechanic errors may occur 12/18/2023 Graves disease (ICD-10 - E05.00) #Weight Management 12/18/2023 Labs reviewed from [facility] September 2023 thriving Given ongoing weight loss this may be a recurrent problem until her weight stabilizes 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 frame tender and rechecking labs every 4 weeks or so and adjusting the methimazole dosing now qualifies for ortho surgery, R TKR Glycemic control much improved on dual incretin therapy cont Contrave for further appetite suppression and craving control She is currently not on any antidepressants Total time spent today was 30 minutes of which greater than 50% was spent on coordinating and counseling Patient has been found to be obese with a BMI of (48). Patient has class (3) obesity. We are a board certified obesity and weight management practice Patient has trialed behavioral modification, dietary restrictions and exercise for a minimum of 6 months The most recent [place] [employer] of clinical endocrinologists and [place] [employer] guidelines recommend patients who have overweight BMI or obesity BMI, who also have metabolic syndrome, prediabetes, or at risk of developing type 2 diabetes should aim for a weight loss goal of at least 10% of the baseline body weight Patient counseled regarding effects of GLP/GIP-1 agonists, and other FDA approved wgt loss meds with regards to a multifactorial approach of weight loss as mentioned above and not solely appetite suppression. Of note, some information is being carried forward from prior records for informational purposes only and is being cited so that efficiency, safety and quality of the patient's care is not compromised This note was prepared using voice recognition software and direct typing Please excuse inadvertent ride mechanic or typing errors, or uncorrected word substitutions Although every attempt has been made by the provider to proofread this document, occasional misspellings and typographical errors may still be present Due to the previous pandemic, and the use of personal protective equipment (PPE) This may decrease voice recognition accuracy Inadvertent ride mechanic errors may occur 12/18/2023 Chronic anticoagulation (ICD-10 - Z79.01) #Weight Management 12/18/2023 Labs reviewed from [facility] September 2023 thriving Given ongoing weight loss this may be a recurrent problem until her weight stabilizes 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 frame tender and rechecking labs every 4 weeks or so and adjusting the methimazole dosing now qualifies for ortho surgery, R TKR Glycemic control much improved on dual incretin therapy cont Contrave for further appetite suppression and craving control She is currently not on any antidepressants Total time spent today was 30 minutes of which greater than 50% was spent on coordinating and counseling Patient has been found to be obese with a BMI of (48). Patient has class (3) obesity. We are a board certified obesity and weight management practice Patient has trialed behavioral modification, dietary restrictions and exercise for a minimum of 6 months The most recent [place] [employer] of clinical endocrinologists and [place] [employer] guidelines recommend patients who have overweight BMI or obesity BMI, who also have metabolic syndrome, prediabetes, or at risk of developing type 2 diabetes should aim for a weight loss goal of at least 10% of the baseline body weight Patient counseled regarding effects of GLP/GIP-1 agonists, and other FDA approved wgt loss meds with regards to a multifactorial approach of weight loss as mentioned above and not solely appetite suppression. Of note, some information is being carried forward from prior records for informational purposes only and is being cited so that efficiency, safety and quality of the patient's care is not compromised This note was prepared using voice recognition software and direct typing Please excuse inadvertent ride mechanic or typing errors, or uncorrected word substitutions Although every attempt has been made by the provider to proofread this document, occasional misspellings and typographical errors may still be present Due to the previous pandemic, and the use of personal protective equipment (PPE) This may decrease voice recognition accuracy Inadvertent ride mechanic errors may occur 12/18/2023 PAF (paroxysmal atrial fibrillation) (ICD-10 - I48.0) #Weight Management 12/18/2023 Labs reviewed from [facility] September 2023 thriving Given ongoing weight loss this may be a recurrent problem until her weight stabilizes 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 frame tender and rechecking labs every 4 weeks or so and adjusting the methimazole dosing now qualifies for ortho surgery, R TKR Glycemic control much improved on dual incretin therapy cont Contrave for further appetite suppression and craving control She is currently not on any antidepressants Total time spent today was 30 minutes of which greater than 50% was spent on coordinating and counseling Patient has been found to be obese with a BMI of (48). Patient has class (3) obesity. We are a board certified obesity and weight management practice Patient has trialed behavioral modification, dietary restrictions and exercise for a minimum of 6 months The most recent [place] [employer] of clinical endocrinologists and [place] [employer] guidelines recommend patients who have overweight BMI or obesity BMI, who also have metabolic syndrome, prediabetes, or at risk of developing type 2 diabetes should aim for a weight loss goal of at least 10% of the baseline body weight Patient counseled regarding effects of GLP/GIP-1 agonists, and other FDA approved wgt loss meds with regards to a multifactorial approach of weight loss as mentioned above and not solely appetite suppression. Of note, some information is being carried forward from prior records for informational purposes only and is being cited so that efficiency, safety and quality of the patient's care is not compromised This note was prepared using voice recognition software and direct typing Please excuse inadvertent ride mechanic or typing errors, or uncorrected word substitutions Although every attempt has been made by the provider to proofread this document, occasional misspellings and typographical errors may still be present Due to the previous pandemic, and the use of personal protective equipment (PPE) This may decrease voice recognition accuracy Inadvertent ride mechanic errors may occur 12/18/2023 NICHOLE (obstructive sleep apnea) (ICD-10 - G47.33) #Weight Management 12/18/2023 Labs reviewed from [facility] September 2023 thriving Given ongoing weight loss this may be a recurrent problem until her weight stabilizes 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 frame tender and rechecking labs every 4 weeks or so and adjusting the methimazole dosing now qualifies for ortho surgery, R TKR Glycemic control much improved on dual incretin therapy cont Contrave for further appetite suppression and craving control She is currently not on any antidepressants Total time spent today was 30 minutes of which greater than 50% was spent on coordinating and counseling Patient has been found to be obese with a BMI of (48). Patient has class (3) obesity. We are a board certified obesity and weight management practice Patient has trialed behavioral modification, dietary restrictions and exercise for a minimum of 6 months The most recent [place] [employer] of clinical endocrinologists and [place] [employer] guidelines recommend patients who have overweight BMI or obesity BMI, who also have metabolic syndrome, prediabetes, or at risk of developing type 2 diabetes should aim for a weight loss goal of at least 10% of the baseline body weight Patient counseled regarding effects of GLP/GIP-1 agonists, and other FDA approved wgt loss meds with regards to a multifactorial approach of weight loss as mentioned above and not solely appetite suppression. Of note, some information is being carried forward from prior records for informational purposes only and is being cited so that efficiency, safety and quality of the patient's care is not compromised This note was prepared using voice recognition software and direct typing Please excuse inadvertent ride mechanic or typing errors, or uncorrected word substitutions Although every attempt has been made by the provider to proofread this document, occasional misspellings and typographical errors may still be present Due to the previous pandemic, and the use of personal protective equipment (PPE) This may decrease voice recognition accuracy Inadvertent ride mechanic errors may occur PLAN OF TREATMENT Medication Medication Name Sig Start Date Stop Date Notes metFORMIN HCl ER 750 MG 1 tablet with ev ening meal Orally Once a day for 90 days Contrave 8-90 MG Week 1, take 1 table t in the morning Week 2 take 1 tablet in the morning, 1 tablet in the evening Week 3 take 2 tablets in the morning, 1 tablet in the evening Week 4 onward 2 tablets in the morning, 2 tablets in the evening Orally twice a day for 30 days Mounjaro 12.5 MG/0.5ML 12.5mg Subcutaneo us weekly for 30 days Next Appt Details Provider Name:MADDIE REYES, 03/17/2024 01:45:00 PM, [address] [place] [address], [facility] [address], [place], [address], Progress Notes * Lexi CORTEZOB: [birth year] (53 yo F)Acc No.[id number]:12/18/2023 Patient:??Corazon CORTEZ Provider:??MADDIE REYES NP :[id number]?Age:53 Y?Sex:Fe male Date:12/18/2023 Address:[address] [place], [place] [id number] Subjective: * Chief Complaints: * ?1. Pt seen in office f or wt mgt f/u visit with [facility].. * HPI: ?Constitutional:? Patient is here today for a weight management f/u visit ?Patient seen and examined. ?Full past medical history, social history, family history, ?allergies and current medications were reviewed and updated. ?Body composition analysis reviewed today ?Once PCP retires plans to move primary services here ?#Weight Management ?12/18/2023 ?Labs reviewed from [facility] September 2023 ?Still on Mounjaro 15mg, injection day Sundays. Contrave BID. No s/e. ?Appetite supressed. Has been stressful last couple months with personal things. ?TSH levels stable at this time, dose of Levothyroxine recently increased and ?will have f/u lab work in December for [employer]. She remains also on methimazole ?Having full blood work done on upcoming through PCP. ?thriving on dual incretins ?Tolerating well. No SEs ?much increased appetite suppression ?Reports improving food noise, her chocolate aversions have gone away ?In office A1C 06/2023 6.2% Significant improvement in glycemic index ?Labs 09/2023: Random glucose 133, A1C 5.5, eGFR 111 ?Injection Day: Sundays ?Scheduled for right TKR, however, orthopedics want her BMI <45 ?so she now qualifies ?Right knee has given out 3 times recently ?Currently averaging 2500 steps daily. Currently not on an exercise regimen, ?states she is limited due to her knee ? and is anticipating knee replacement in the future. ?Has apointment with ortho next week ?Started physical therapy ?Had Echo done. Her twin has a history of cardiomyopathy and sarcoid ?paroxysmal atrial flutter, ?on chronic anticoagulation ?Was scheduled for ablation in the near future with digital marketing lead JOSHUA, ? 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 Tyler in [place] ?Comprehensive labs from [facility] ?September 2023 ?Renal function electrolytes and LFTs are stable ?Estimated average glucose of 110 ?A1c 5.5 ?TSH 0.94 ?Total cholesterol 151, LDL 82, triglycerides 118, HDL 46 ?Has not had an echocardiogram recently. * ROS:?All Other Systems:?Review of Systems (ROS)??All others negative except those mentioned in HPI.? * Medical History:??Diabetes m ellitus, Graves disease, Afib, gastroesophageal reflux disease (GERD), Hyperlipidemia, Asthma, Sleep apnea. * Surgical History:??Denies Pa st Surgical History. * Hospitalization/Major Diagno stic Procedure:??Denies Past Hospitalization. * Family History:??Friend(s): , Diabetes Heart Disease.??Mother: , Lung Cancer.??2 brother(s) . 1 daughter(s) - healthy. .?? both Brother afib abd diabetic and heart attack. * Social History:?Tobacco Use:??Tobacco Use/Smoking??Are you a??nonsmoker.?? * Medications:??Taking metFORM IN HCl ER 750 MG Tablet Extended Release 24 Hour 1 tablet with evening meal Orally Once a day , Taking Mounjaro 15 MG/0.5ML Solution Pen-injector 15mg Subcutaneous weekly , Taking Vitamin C , Taking Vitamin D (Cholecalciferol) 50 MCG (2000 UT) Capsule 1 capsule Orally Once a day , Taking Vitamin B 12 500 MCG Tablet 1 tablet Orally Once a day , Taking Omeprazole 20 MG Capsule Delayed Release Oral , Taking Eliquis 5 MG Tablet Oral , Taking dilTIAZem HCl ER Coated Beads 240 MG Capsule Extended Release 24 Hour Oral , Taking Furosemide 20 MG Tablet Oral , Taking Flecainide Acetate 100 MG Tablet Oral , Taking Atorvastatin Calcium 10 MG Tablet Oral , Taking methIMAzole 5 MG Tablet 1 tablet Oral Once every other day , Taking Magnesium Oxide 400 MG Tablet Oral , Taking Contrave 8-90 MG Tablet Extended Release 12 Hour Week 1, take 1 tablet in the morning Week 2 take 1 tablet in the morning, 1 tablet in the evening Week 3 take 2 tablets in the morning, 1 tablet in the evening Week 4 onward 2 tablets in the morning, 2 tablets in the evening Orally twice a day , Not-Taking Mounjaro 12.5 MG/0.5ML Solution Pen- injector 12.5mg Subcutaneous weekly , Discontinued metFORMIN HCl 500 MG Tablet 1 tablet with a meal Orally Once a day , Medication List reviewed and reconciled with the patient * Allergies:??Ibuprofen: Blood thinner - Contraindication. Objective: * Vitals:??HR:74/min, BP:124/8 0mm Hg, Wt:300lbs, BMI:48.42Index, Ht: 66 in, Oxygen sat %:97%. * Examination: ?General Examination: ?GENERAL APPEARANCE:??in no acute distress, well developed, well nourished.??HEAD:??normocephalic, atraumatic.??EYES:??pupils equal, round, reactive to light and accommodation.??EARS:??normal.??ORAL CAVITY:??mucosa moist.??THROAT:??clear.??NECK/THYROID:??neck supple, full range of motion, no cervical lymphadenopathy.??SKIN:??no suspicious lesions, warm and dry.??HEART:??no murmurs, regular rate and rhythm, S1, S2 normal.??LUNGS:??clear to auscultation bilaterally.??ABDOMEN:??normal, bowel sounds present, soft, nontender, nondistended.??EXTREMITIES:??no clubbing, cyanosis, or edema.??NEUROLOGIC:??nonfocal, motor strength normal upper and lower extremities, sensory exam intact.? Assessment: * Assessment: 1.??Morbid obesity - E66.01 (Primary)??2.??BMI 45.0-49.9, adult - Z68.42??3.??Dietary counseling and surveillance - Z71.3??4.??Type 2 diabetes mellitus without complication, without long-term current use of insulin - E11.9??5.??Graves disease - E05.00??6.??Chronic anticoagulation - Z79.01??7.??PAF (paroxysmal atrial fibrillation) - I48.0??8.??NICHOLE (obstructive sleep apnea) - G47.33?? #Weight Management 12/18/2023 Labs reviewed from [facility] September 2023 thriving Given ongoing weight loss this may be a recurrent problem until her weight stabilizes 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 frame tender and rechecking labs every 4 weeks or so and adjusting the methimazole dosing now qualifies for ortho surgery, R TKR Glycemic control much improved on dual incretin therapy cont Contrave for further appetite suppression and craving control She is currently not on any antidepressants Total time spent today was 30 minutes of which greater than 50% was spent on coordinating and counseling Patient has been found to be obese with a BMI of (48). Patient has class (3) obesity. We are a board certified obesity and weight management practice Patient has trialed behavioral modification, dietary restrictions and exercise for a minimum of 6 months The most recent [place] [employer] of clinical endocrinologists and [place] [employer] guidelines recommend patients who have overweight BMI or obesity BMI, who also have metabolic syndrome, prediabetes, or at risk of developing type 2 diabetes should aim for a weight loss goal of at least 10% of the baseline body weight Patient counseled regarding effects of GLP/GIP-1 agonists, and other FDA approved wgt loss meds with regards to a multifactorial approach of weight loss as mentioned above and not solely appetite suppression. Of note, some information is being carried forward from prior records for informational purposes only and is being cited so that efficiency, safety and quality of the patient's care is not compromised This note was prepared using voice recognition software and direct typing Please excuse inadvertent ride mechanic or typing errors, or uncorrected word substitutions Although every attempt has been made by the provider to proofread this document, occasional misspellings and typographical errors may still be present Due to the previous pandemic, and the use of personal protective equipment (PPE) This may decrease voice recognition accuracy Inadvertent ride mechanic errors may occur. Plan: * Treatment: * Procedure Codes:??G0447 FCE- FCE BEHAVRL CNSL OBESITY 15 MIN, Modifiers: 59 * Images: Billing Information: * Visit Code:?? 86913 Office Visit, Est Pt., Level 4. * Procedure Codes:?? G0447 FCE-FCE BEHAVRL CNSL OBESITY 15 MIN. Modifiers: 59 * Sign off status: Completed true * Provider:??MADDIE REYES NP Date:??11/25 History and Physical Notes * HPI (History of Present Illness) Category Sub-Category Detail Notes Category Not es Constitutional Patient is here today for a weight management f/u visit Patient seen and examined. Full past medical history, social history, family history, allergies and current medications were reviewed and updated. Body composition analysis reviewed today Once PCP retires plans to move primary services here #Weight Management 12/18/2023 Labs reviewed from [facility] September 2023 Still on Mounjaro 15mg, injection day Sundays. Contrave BID. No s/e. Appetite supressed. Has been stressful last couple months with personal things. TSH levels stable at this time, dose of Levothyroxine recently increased and will have f/u lab work in December for Performance Test Consultant. She remains also on methimazole Having full blood work done on upcoming through PCP. thriving on dual incretins Tolerating well. No SEs much increased appetite suppression Reports improving food noise, her chocolate aversions have gone away In office A1C 06/2023 6.2% Significant improvement in glycemic index Labs 09/2023: Random glucose 133, A1C 5.5, eGFR 111 Injection Day: Sundays Scheduled for right TKR, however, orthopedics want her BMI <45 so she now qualifies Right knee has given out 3 times recently Currently averaging 2500 steps daily. Currently not on an exercise regimen, states she is limited due to her knee and is anticipating knee replacement in the future. Has apointment with ortho next week Started physical therapy Had Echo done. Her twin has a history of cardiomyopathy and sarcoid paroxysmal atrial flutter, on chronic anticoagulation Was scheduled for ablation in the near future with digital marketing lead JOSHUA, but is on hold until weight loss is stabilizes She also has a history of Graves' disease, obstructive sleep apnea, diabetes, Patient referred to us from [facility] She is under the care of an frame tender for both her diabetes as well as Graves' disease 12/18/2023, Weight 300, BMI 47 (+8lbs) 10/16/2023, Weight 292lbs , BMI 45.8 08/07/2023, Weight 292lbs, BMI 47 06/25/2023, Weight 294lbs ,BMI (-22lbs) 05/07/2023, Weight 316 lbs, BMI 49 03/10/2023, Weight 314, BMI 50.8 01/15/2023: Weight 315 lbs, BMI 50.8 12/06/2022: Weight 328 lbs, BMI 52.8 10/23/2022: Weight 348 lbs, BMI 56 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 Tyler in [place] Comprehensive labs from [facility] September 2023 Renal function electrolytes and LFTs are stable Estimated average glucose of 110 A1c 5.5 TSH 0.94 Total cholesterol 151, LDL 82, triglycerides 118, HDL 46 Has not had an echocardiogram recently. Examination Category Sub-Category Detail Notes Category Not es General Examination GENERAL APPEARANCE: in no ac squaxin distress, well developed, well nourished HEAD: normocephalic, atrau matic EYES: pupils equal, round, reactive to light and accommodation EARS: normal THROAT: clear NECK/THYROID: neck supple, full ra nge of motion, no cervical lymphadenopathy HEART: no murmurs, regular rate and rhythm, S1, S2 normal LUNGS: clear to auscultatio n bilaterally ABDOMEN: normal, bowel sounds present, soft, nontender, nondistended NEUROLOGIC: nonfocal, motor stre ngth normal upper and lower extremities, sensory exam intact SKIN: no suspicious lesion s, warm and dry EXTREMITIES: no clubbing, cyanosi s, or edema ORAL CAVITY: mucosa moist
--- OUTSIDE RECORDS SUMMARY | 2024-02-05 07:57 | XMS_ITS ---
Author Organization [facility] Address [address] [place] [id number] Care Team Providers Care Replenisher Name Role Phone AMY MADDIE Unavailable [phone] MEDICATIONS Medication SIG (Take, Route, Fr equency, Duration) Notes Start Date End Date Status Contrave 8-90 MG Week 1, take 1 table t in the morning Week 2 take 1 tablet in the morning, 1 tablet in the evening Week 3 take 2 tablets in the morning, 1 tablet in the evening Week 4 onward 2 tablets in the morning, 2 tablets in the evening Orally twice a day for 30 days A ctive Encounters Encounter Location Date Provider Diagnosis [facility] [address] [id number] 11/12/2023 MADDIECARMEN BRISENOMihai Morbid obesity E66.0 1 ASSESSMENTS Encounter Date Diagnosis Assessment Notes Treatment Notes Treatment Clinical Notes Section Notes 11/12/2023 Morbid obesity (ICD-10 - E66.01) PLAN OF TREATMENT Medication Medication Name Sig Start Date Stop Date Notes Contrave 8-90 MG Week 1, take 1 table t in the morning Week 2 take 1 tablet in the morning, 1 tablet in the evening Week 3 take 2 tablets in the morning, 1 tablet in the evening Week 4 onward 2 tablets in the morning, 2 tablets in the evening Orally twice a day for 30 days Next Appt Details Provider Name:MADDIE REYES, 03/17/2024 01:45:00 PM, [address] [address], [place], [id number], Progress Notes * Lexi CORTEZOB: [birth year] (53 yo F)Acc No.[id number]:11/12/2023 Patient:??Corazon CORTEZ :1970?Age:53 Y?Sex:Fe male Address:[address] [place] [address] [place] [address] * Refills?? Refill Contrave Tablet Extended Release 12 Hour, 8-90 MG, Orally, 120 Tablet, Week 1, take 1 tablet in the morning Week 2 take 1 tablet in the morning, 1 tablet in the evening Week 3 take 2 tablets in the morning, 1 tablet in the evening Week 4 onward 2 tablets in the morning, 2 tablets in the evening, twice a day, 30 days, Refills=5 * true * Date:??
--- OUTSIDE RECORDS SUMMARY | 2024-02-05 07:58 | XMS_ITS | Patient Health Record ---
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 Name Role Phone MADDIE REYES Unavailable [phone] ALLERGIES Allergen (clinical drug ingredient) Drug/Non Drug Allergy documented on EMR Reaction Allergy Type Onset Date Status ibuprofen Ibuprofen Blood thinner Drug Allergy Act indigo REASON FOR REFERRAL No Information MEDICATIONS Medication SIG (Take, Route, Frequency, Duration) Notes Start Date End Date Status dilTIAZem HCl ER Coated Beads 240 MG Oral for 30 Days Active Furosemide 20 MG Oral for 30 Days Active metFORMIN HCl ER 750 MG 1 tablet with ev ening meal Orally Once a day for 90 days Active Mounjaro 12.5 MG/0.5ML 12.5mg Subcutaneo us weekly for 30 days Active Contrave 8-90 MG Week 1, take 1 table t in the morning Week 2 take 1 tablet in the morning, 1 tablet in the evening Week 3 take 2 tablets in the morning, 1 tablet in the evening Week 4 onward 2 tablets in the morning, 2 tablets in the evening Orally twice a day for 30 days Active Flecainide Acetate 100 MG Oral for 90 Days Active Atorvastatin Calcium 10 MG Oral for 90 Days Active Mounjaro 15 MG/0.5ML 15mg Subcutaneous w [facility] for 30 days 03/10/2023 Active methIMAzole 5 MG 1 tablet Oral Once e very other day for 90 days Active Vitamin C Active Magnesium Oxide 400 MG Oral for 30 Days Active Vitamin D (Cholecalciferol) 50 MCG (2000 UT) 1 capsule Orally Once a day Active Vitamin B 12 500 MCG 1 tablet Orally Once a day Active Omeprazole 20 MG Oral for 30 Days Active Eliquis 5 MG Oral for 30 Days Active SOCIAL HISTORY Tobacco Use: Social History Observation Description Date Details (start date - stop date) Never Smoker NA - NA Sex Assigned At : Social History Observation Description Sex Assigned At Unknown Tobacco Use/Smoking Question Answer Notes Are you a nonsmoker PROBLEMS Problem Type ICD Code Onset Dates Problem Status W/U Status Risk SNOMED Code Notes Problem Morbid obesity (E66.01) Active confirmed 506778715 Problem NICHOLE (obstructive sleep apnea) (G47.33) Active confirmed 91121517 Problem Chronic anticoagulation (Z79.01) Active confirmed 703505044 Problem Type 2 diabetes mellitus without complication, without long-term current use of insulin (E11.9) Active confirmed 203409230 Problem BMI 50.0-59.9, adult (Z68.43) Active confirmed 688831236 Problem Graves disease (E05.00) Active confirmed 628582652 Problem PAF (paroxysmal atrial fibrillation) (I48.0) Active confirmed 402528884 Problem BMI 45.0-49.9, adult (Z68.42) Active confirmed 520083291 VITAL SIGNS Heart Rate 74 /min 12/18/2023 Oximetry 97 % 12/18/2023 Blood pressure diastolic 80 mm Hg 12/18/2023 Height 66 in 12/18/2023 Blood pressure systolic 124 mm Hg 12/18/2023 Weight 300 lbs 12/18/2023 BMI 48.42 kg/m2 12/18/2023 Encounters Encounter Location Date Provider Diagnosis [place] [address] [address] 03/10/2023 MADDIE REYES Morbid obesity E66.0 1 ; BMI 50.0-59.9, adult Z68.43 ; Graves disease E05.00 ; Type 2 diabetes mellitus without complication, without long-term current use of insulin E11.9 ; Chronic anticoagulation Z79.01 ; PAF (paroxysmal atrial fibrillation) I48.0 and NICHOLE (obstructive sleep apnea) G47.33 [place] [address] [address] 05/08/2023 MADDIE REYES Morbid obesity E66.0 1 ; BMI 50.0-59.9, adult Z68.43 ; Graves disease E05.00 ; Type 2 diabetes mellitus without complication, without long-term current use of insulin E11.9 ; Chronic anticoagulation Z79.01 ; PAF (paroxysmal atrial fibrillation) I48.0 and NICHOLE (obstructive sleep apnea) G47.33 [facility] [address] [address] 06/25/2023 MADDIE BORHOT Morbid obesity E66.0 1 ; Graves disease E05.00 ; Type 2 diabetes mellitus without complication, without long-term current use of insulin E11.9 ; Chronic anticoagulation Z79.01 ; PAF (paroxysmal atrial fibrillation) I48.0 ; NICHOLE (obstructive sleep apnea) G47.33 and BMI 45.0-49.9, adult Z68.42 [facility] [address] [address] 08/07/2023 MADDIE BORHOT Morbid obesity E66.0 1 ; BMI 45.0-49.9, adult Z68.42 ; Dietary counseling and surveillance Z71.3 ; Type 2 diabetes mellitus without complication, without long-term current use of insulin E11.9 ; Graves disease E05.00 ; Chronic anticoagulation Z79.01 ; PAF (paroxysmal atrial fibrillation) I48.0 and NICHOLE (obstructive sleep apnea) G47.33 [facility] [address] [address] 10/16/2023 MADDIE BORHOT Morbid obesity E66.0 1 ; BMI 45.0-49.9, adult Z68.42 ; Dietary counseling and surveillance Z71.3 ; Type 2 diabetes mellitus without complication, without long-term current use of insulin E11.9 ; Graves disease E05.00 ; Chronic anticoagulation Z79.01 ; PAF (paroxysmal atrial fibrillation) I48.0 and NICHOLE (obstructive sleep apnea) G47.33 [facility] [address] [address] 12/18/2023 MADDIE BORHOT Morbid obesity E66.0 1 ; BMI 45.0-49.9, adult Z68.42 ; Dietary counseling and surveillance Z71.3 ; Type 2 diabetes mellitus without complication, without long-term current use of insulin E11.9 ; Graves disease E05.00 ; Chronic anticoagulation Z79.01 ; PAF (paroxysmal atrial fibrillation) I48.0 and NICHOLE (obstructive sleep apnea) G47.33 [address] [address] 05/16/2023 MADDIE REYES [facility] [address] [place] [address] 07/30/2023 MADDIE REYES Morbid obesity E66.[address] [facility] [address] [place] [address] 10/22/2023 MADDIE REYES Morbid obesity E66.[address] [facility] [address] [address] 11/07/2023 MADDIE REYES [facility] [address] [facility] [address] [address] 11/12/2023 MADDIE REYES Morbid obesity E66.0 1 ASSESSMENTS Encounter Date Diagnosis Assessment Notes Treatment Notes Treatment Clinical Notes Section Notes 03/10/2023 Morbid obesity (ICD-10 - E66.01) As per HPI dc the sulfonylurea we have cut back her metformin by 50% to 750 mg extended release increase Mounjaro from 12.5 to 15 mg She is Thriving already doing very well on this regimen I will request and coordinate with fitness technician and primary care In office A1c 5.6 today 02/2023 Total time spent today was 30 minutes of which greater than 50% was spent on coordinating and counseling We are a board certified obesity and weight management practice Patient has trialed behavioral modification, dietary restrictions and exercise for a minimum of 6 months The most recent [place] [employer] of clinical endocrinologists and [place] [employer] endocrin[employer] guidelines recommend patients who [...] mentioned above and not solely appetite suppression. We have discussed the mechanism of GLP-1's/GIP, dual incretins, appetitite suppressants I think this would be fantastic option for her given her metabolic workup and body composition We have discussed the risks and benefits and side effects including/and not limited to Sarcopenia, intestinal obstruction, constipation, nausea, lethargy, headache Discussed importance of protein consumption for muscle maintenance as well as strength and resistance training ,probiotics, B12 complex biotin , iron and other nutrients, To help avoid telogen effluvium We have discussed the lifelong requirement of nutritional supplementation And adherence to an exercise regimen as well as importance of follow-up The patient understands and agrees There is no history of medullary thyroid cancer or multiple endocrine neoplasia There is also no history of cardiovascular disease, hypertension, palpitations, or arrhythmias In the setting of potential stimulant/amphetam ine use such as phentermine We have also discussed risks and benefits, and the use of compounded medications to help offset the national shortages as well as financial implications vs trade name drugs Patient has been found to be obese with a BMI of (). Patient has class () obesity. Patient was reassured and welcomed to the practice. We discussed that we stress a hollistic medical approach with emphasis on lifestyle modification. Patient was informed that a healthy lifestyle with exercise and good eating habits can help reduce his risk of medical complications. He is explained that obesity increases his risk of diabetes, cardiovascular disease, or organ damage. We spent a lot of time discussing the relationship between food, exercise, sleep, mental health and obesity. Patient was counseled on the importance EATING local, organic food when possible. Patient was educated on clean 15 and dirty dozen. I provided information about reading books called The Food Rules by Jose Elias Mo and Eat Fat Get Lean by Dr Christopher Rojas. Self education is important in the journey for weight management. Patient was offered diagnostic testing. We want to measure visceral adiposity, advanced body composition, adverse lipids, fatty acid balance, risk for heart disease and atherosclerosis, markers of inflammation and genetic susceptibility. Patient was counseled on weight management and was advised to lose weight using A. Meal Replacement Products We discussed the lifelong requirement of nutritional supplementation and adherence to an exercise regimen as well as importance of dietary follow-up Patient was educated on the replacement products called optifast. This is a good way of taking fixed amount of calories. It has been shown in studies to be ineffective weight management tool. We also recommend maintaining adequate protein intake and muscle composition, 1.5mg/kg This however has to be coupled with lifestyle intervention as well as laboratory data and EKG monitoring. It is impossible to know how a person will tolerate complete meal replacement. The side effects of meal replacement and weight loss could include syncopal attacks, dizziness, gallstones, potential cholecystectomy, possible heart attack and even . The benefits of meal replacement would be potential weight loss but no guarantees can be made. Meal replacement products are not covered by insurance. Once the patient has bought these products we cannot return them B. Lifestyle management which includes several strategies as below 1. Eat a low carbohydrate good fat good protein diet. Eliminate refined carbohydrates from the diet. Continue blood sugar and sugared beverages. Eat local organic when possible. Cook your own meals. Read food labels. None about healthy snacks. Portion control and food with low glycemic index 2. Exercise regularly. Try to get at least 6000 steps a day. Use a predominant to track activity level. Consider using apps like Imagistx, Drivypal, lose it, stick as needed for self-monitoring and weight management. Consider group exercises. Consider hiring a personal financial representative. Regular exercise is carvalho to sustainable health and prevents as a buffer against weight regain 3. Sleep is most important for healing. Tried to sleep at least 8 hours a night. A good quality sleep needs a sleep ritual with ideal room temperature of around 68. It might help to take a shower and have no electronics in the room and sleep in a very dark room without artificial light. Start her sleep routine and get up early in the morning and go to bed on time 4. Make a social connection. Surround yourself with positive people with positive energy. Connect with friends and family. 5. Get into the habit of meditating and mindfulness while doing everything. 6. Go outside and connect with nature. C. Prescription medications Patient was educated on the use of prescription medications for medical weight loss. This is a growing list and includes phentermine, Topamax,Qsymia, contrave, belviq and saxenda. All prescription medications could have side effects including but not limited to kidney stones, seizure disorder cardiac arrhythmias heart attack pancreatitis etc. etc.. Patient was encouraged to read the prescription insert and have coaching with their pharmacist and make an informed decision about taking medication and know that these medications are being prescribed with good intentions and we do not know how a patient would react to her medication. Sudden medications are FDA approved for weight loss and there is also off label use depending on patient's inability to afford medications in an attempt to lose weight D. Behavioral counseling was done to establish a relationship between food and an mood. Patient was provided information about local counseling and psychiatry and Dr Andres at [facility]. We would like to cover regular topics and build on low glycemic eating exercise mindful eating, using yoga and meditation along with deep breathing and connecting with friends and family. E. MASS PAT reviewed, Patient's current medications were reviewed and opinion was given on medication that can cause weight gain and can be substituted F. Patient was assessed for risk with obesity including and not limiting to atherosclerosis heart disease stroke kidney disease, restrictive lung disease, irritable bowel syndrome and overall mortality. Risk of developing prediabetes diabetes and metabolic syndrome was discussed G. Therapeutic plan: We have decided to make therapeutic plan which would include choosing wisely on calories restricting portion getting active, tracking weight, getting good quality sleep and working on time management H. Patient will follow up in (4) weeks for weight management Of note, some information is being carried forward from prior records for informational purposes only and is being cited so that efficiency, safety and quality of the patient's care is not compromised This note was prepared using voice recognition software and direct typing Please excuse inadvertent psychologist social or typing errors, or uncorrected word substitutions Although every attempt has been made by the provider to proofread this document, occasional misspellings and typographical errors may still be present Due to the previous pandemic, and the use of personal protective equipment (PPE) This may decrease voice recognition accuracy Inadvertent psychologist social errors may occur 05/08/2023 Morbid obesity (ICD-10 - E66.01) #Weight Management 05/08/2023 Glycemic control much improved on dual incretin therapy We discussed introducing Contrave for further appetite suppression and craving control She is currently not on any antidepressants Total time spent today was 30 minutes of which greater than 50% was spent on coordinating and counseling Patient has been found to be obese with a BMI of (51). Patient has class (3) obesity. We are a board certified obesity and weight management practice Patient has trialed behavioral modification, dietary restrictions and exercise for a minimum of 6 months The most recent [place] [employer] of clinical endocrinologists and [place] [employer] end[employer]in[employer] guidelines recommend patients who [...] mentioned above and not solely appetite suppression. We have discussed the mechanism of GLP-1's/GIP, dual incretins, appetitite suppressants I think this would be fantastic option for her given her metabolic workup and body composition We have discussed the risks and benefits and side effects including/and not limited to Sarcopenia, intestinal obstruction, constipation, nausea, lethargy, headache Discussed importance of protein consumption for muscle maintenance as well as strength and resistance training ,probiotics, B12 complex biotin , iron and other nutrients, To help avoid telogen effluvium We have discussed the lifelong requirement of nutritional supplementation And adherence to an exercise regimen as well as importance of follow-up The patient understands and agrees There is no history of medullary thyroid cancer or multiple endocrine neoplasia There is also no history of cardiovascular disease, hypertension, palpitations, or arrhythmias In the setting of potential stimulant/amphetam ine use such as phentermine We have also discussed risks and benefits, and the use of compounded medications to help offset the national shortages as well as financial implications vs trade name drugs Patient was reassured and welcomed to the practice. We discussed that we stress a hollistic medical approach with emphasis on lifestyle modification. Patient was informed that a healthy lifestyle with exercise and good eating habits can help reduce his risk of medical complications. He is explained that obesity increases his risk of diabetes, cardiovascular disease, or organ damage. We spent a lot of time discussing the relationship between food, exercise, sleep, mental health and obesity. Patient was counseled on the importance EATING local, organic food when possible. Patient was educated on clean 15 and dirty dozen. I provided information about reading books called The Food Rules by Jose Elias Mo and Eat Fat Get Lean by Dr Christopher Rojas. Self education is important in the journey for weight management. Patient was offered diagnostic testing. We want to measure visceral adiposity, advanced body composition, adverse lipids, fatty acid balance, risk for heart disease and atherosclerosis, markers of inflammation and genetic susceptibility. Patient was counseled on weight management and was advised to lose weight using A. Meal Replacement Products We discussed the lifelong requirement of nutritional supplementation and adherence to an exercise regimen as well as importance of dietary follow-up Patient was educated on the replacement products called optifast. This is a good way of taking fixed amount of calories. It has been shown in studies to be ineffective weight management tool. We also recommend maintaining adequate protein intake and muscle composition, 1.5mg/kg This however has to be coupled with lifestyle intervention as well as laboratory data and EKG monitoring. It is impossible to know how a person will tolerate complete meal replacement. The side effects of meal replacement and weight loss could include syncopal attacks, dizziness, gallstones, potential cholecystectomy, possible heart attack and even . The benefits of meal replacement would be potential weight loss but no guarantees can be made. Meal replacement products are not covered by insurance. Once the patient has bought these products we cannot return them B. Lifestyle management which includes several strategies as below 1. Eat a low carbohydrate good fat good protein diet. Eliminate refined carbohydrates from the diet. Continue blood sugar and sugared beverages. Eat local organic when possible. Cook your own meals. Read food labels. None about healthy snacks. Portion control and food with low glycemic index 2. Exercise regularly. Try to get at least 6000 steps a day. Use a predominant to track activity level. Consider using apps like Imagistx, Drivypal, lose it, stick as needed for self-monitoring and weight management. Consider group exercises. Consider hiring a personal financial representative. Regular exercise is carvalho to sustainable health and prevents as a buffer against weight regain 3. Sleep is most important for healing. Tried to sleep at least 8 hours a night. A good quality sleep needs a sleep ritual with ideal room temperature of around 68. It might help to take a shower and have no electronics in the room and sleep in a very dark room without artificial light. Start her sleep routine and get up early in the morning and go to bed on time 4. Make a social connection. Surround yourself with positive people with positive energy. Connect with friends and family. 5. Get into the habit of meditating and mindfulness while doing everything. 6. Go outside and connect with nature. C. Prescription medications Patient was educated on the use of prescription medications for medical weight loss. This is a growing list and includes phentermine, Topamax,Qsymia, contrave, belviq and saxenda. All prescription medications could have side effects including but not limited to kidney stones, seizure disorder cardiac arrhythmias heart attack pancreatitis etc. etc.. Patient was encouraged to read the prescription insert and have coaching with their pharmacist and make an informed decision about taking medication and know that these medications are being prescribed with good intentions and we do not know how a patient would react to her medication. Sudden medications are FDA approved for weight loss and there is also off label use depending on patient's inability to afford medications in an attempt to lose weight D. Behavioral counseling was done to establish a relationship between food and an mood. Patient was provided information about local counseling and psychiatry and Dr Andres at [facility]. We would like to cover regular topics and build on low glycemic eating exercise mindful eating, using yoga and meditation along with deep breathing and connecting with friends and family. E. MASS PAT reviewed, Patient's current medications were reviewed and opinion was given on medication that can cause weight gain and can be substituted F. Patient was assessed for risk with obesity including and not limiting to atherosclerosis heart disease stroke kidney disease, restrictive lung disease, irritable bowel syndrome and overall mortality. Risk of developing prediabetes diabetes and metabolic syndrome was discussed G. Therapeutic plan: We have decided to make therapeutic plan which would include choosing wisely on calories restricting portion getting active, tracking weight, getting good quality sleep and working on time management H. Patient will follow up in (4) weeks for weight management Of note, some information is being carried forward from prior records for informational purposes only and is being cited so that efficiency, safety and quality of the patient's care is not compromised This note was prepared using voice recognition software and direct typing Please excuse inadvertent psychologist social or typing errors, or uncorrected word substitutions Although every attempt has been made by the provider to proofread this document, occasional misspellings and typographical errors may still be present Due to the previous pandemic, and the use of personal protective equipment (PPE) This may decrease voice recognition accuracy Inadvertent psychologist social errors may occur 06/25/2023 Morbid obesity (ICD-10 - E66.01) #Weight Management 06/25/2023 thriving now qualifies for ortho surgery, R TKR Glycemic control much improved on dual incretin therapy cont Contrave for further appetite suppression and craving control She is currently not on any antidepressants Total time spent today was 30 minutes of which greater than 50% was spent on coordinating and counseling Patient has been found to be obese with a BMI of (47). Patient has class (3) obesity. We are a board certified obesity and weight management practice Patient has trialed behavioral modification, dietary restrictions and exercise for a minimum of 6 months The most recent [place] [employer] of clinical endocrinologists and [place] [employer] endocrin[employer] guidelines recommend patients who [...] mentioned above and not solely appetite suppression. We have discussed the mechanism of GLP-1's/GIP, dual incretins, appetitite suppressants I think this would be fantastic option for her given her metabolic workup and body composition We have discussed the risks and benefits and side effects including/and not limited to Sarcopenia, intestinal obstruction, constipation, nausea, lethargy, headache Discussed importance of protein consumption for muscle maintenance as well as strength and resistance training ,probiotics, B12 complex biotin , iron and other nutrients, To help avoid telogen effluvium We have discussed the lifelong requirement of nutritional supplementation And adherence to an exercise regimen as well as importance of follow-up The patient understands and agrees There is no history of medullary thyroid cancer or multiple endocrine neoplasia There is also no history of cardiovascular disease, hypertension, palpitations, or arrhythmias In the setting of potential stimulant/amphetam ine use such as phentermine We have also discussed risks and benefits, and the use of compounded medications to help offset the national shortages as well as financial implications vs trade name drugs Patient was reassured and welcomed to the practice. We discussed that we stress a hollistic medical approach with emphasis on lifestyle modification. Patient was informed that a healthy lifestyle with exercise and good eating habits can help reduce his risk of medical complications. He is explained that obesity increases his risk of diabetes, cardiovascular disease, or organ damage. We spent a lot of time discussing the relationship between food, exercise, sleep, mental health and obesity. Patient was counseled on the importance EATING local, organic food when possible. Patient was educated on clean 15 and dirty dozen. I provided information about reading books called The Food Rules by Jose Elias Mo and Eat Fat Get Lean by Dr Christopher Rojas. Self education is important in the journey for weight management. Patient was offered diagnostic testing. We want to measure visceral adiposity, advanced body composition, adverse lipids, fatty acid balance, risk for heart disease and atherosclerosis, markers of inflammation and genetic susceptibility. Patient was counseled on weight management and was advised to lose weight using A. Meal Replacement Products We discussed the lifelong requirement of nutritional supplementation and adherence to an exercise regimen as well as importance of dietary follow-up Patient was educated on the replacement products called optifast. This is a good way of taking fixed amount of calories. It has been shown in studies to be ineffective weight management tool. We also recommend maintaining adequate protein intake and muscle composition, 1.5mg/kg This however has to be coupled with lifestyle intervention as well as laboratory data and EKG monitoring. It is impossible to know how a person will tolerate complete meal replacement. The side effects of meal replacement and weight loss could include syncopal attacks, dizziness, gallstones, potential cholecystectomy, possible heart attack and even . The benefits of meal replacement would be potential weight loss but no guarantees can be made. Meal replacement products are not covered by insurance. Once the patient has bought these products we cannot return them B. Lifestyle management which includes several strategies as below 1. Eat a low carbohydrate good fat good protein diet. Eliminate refined carbohydrates from the diet. Continue blood sugar and sugared beverages. Eat local organic when possible. Cook your own meals. Read food labels. None about healthy snacks. Portion control and food with low glycemic index 2. Exercise regularly. Try to get at least 6000 steps a day. Use a predominant to track activity level. Consider using apps like Imagistx, myfitSnapchatpal, lose it, stick as needed for self-monitoring and weight management. Consider group exercises. Consider hiring a personal financial representative. Regular exercise is carvalho to sustainable health and prevents as a buffer against weight regain 3. Sleep is most important for healing. Tried to sleep at least 8 hours a night. A good quality sleep needs a sleep ritual with ideal room temperature of around 68. It might help to take a shower and have no electronics in the room and sleep in a very dark room without artificial light. Start her sleep routine and get up early in the morning and go to bed on time 4. Make a social connection. Surround yourself with positive people with positive energy. Connect with friends and family. 5. Get into the habit of meditating and mindfulness while doing everything. 6. Go outside and connect with nature. C. Prescription medications Patient was educated on the use of prescription medications for medical weight loss. This is a growing list and includes phentermine, Topamax,Qsymia, contrave, belviq and saxenda. All prescription medications could have side effects including but not limited to kidney stones, seizure disorder cardiac arrhythmias heart attack pancreatitis etc. etc.. Patient was encouraged to read the prescription insert and have coaching with their pharmacist and make an informed decision about taking medication and know that these medications are being prescribed with good intentions and we do not know how a patient would react to her medication. Sudden medications are FDA approved for weight loss and there is also off label use depending on patient's inability to afford medications in an attempt to lose weight D. Behavioral counseling was done to establish a relationship between food and an mood. Patient was provided information about local counseling and psychiatry and Dr Andres at [facility]. We would like to cover regular topics and build on low glycemic eating exercise mindful eating, using yoga and meditation along with deep breathing and connecting with friends and family. E. MASS PAT reviewed, Patient's current medications were reviewed and opinion was given on medication that can cause weight gain and can be substituted F. Patient was assessed for risk with obesity including and not limiting to atherosclerosis heart disease stroke kidney disease, restrictive lung disease, irritable bowel syndrome and overall mortality. Risk of developing prediabetes diabetes and metabolic syndrome was discussed G. Therapeutic plan: We have decided to make therapeutic plan which would include choosing wisely on calories restricting portion getting active, tracking weight, getting good quality sleep and working on time management H. Patient will follow up in (4) weeks for weight management Of note, some information is being carried forward from prior records for informational purposes only and is being cited so that efficiency, safety and quality of the patient's care is not compromised This note was prepared using voice recognition software and direct typing Please excuse inadvertent psychologist social or typing errors, or uncorrected word substitutions Although every attempt has been made by the provider to proofread this document, occasional misspellings and typographical errors may still be present Due to the previous pandemic, and the use of personal protective equipment (PPE) This may decrease voice recognition accuracy Inadvertent psychologist social errors may occur 06/25/2023 Graves disease (ICD-10 - E05.00) #Weight Management 06/25/2023 [facility] now qualifies for ortho surgery, R TKR Glycemic control much improved on dual incretin therapy cont Contrave for further appetite suppression and craving control She is currently not on any antidepressants Total time spent today was 30 minutes of which greater than 50% was spent on coordinating and counseling Patient has been found to be obese with a BMI of (47). Patient has class (3) obesity. We are a board certified obesity and weight management practice Patient has trialed behavioral modification, dietary restrictions and exercise for a minimum of 6 months The most recent [place] [employer]ocrinologists and [place] [employer] guidelines recommend patients who [...] mentioned above and not solely appetite suppression. We have discussed the mechanism of GLP-1's/GIP, dual incretins, appetitite suppressants I think this would be fantastic option for her given her metabolic workup and body composition We have discussed the risks and benefits and side effects including/and not limited to Sarcopenia, intestinal obstruction, constipation, nausea, lethargy, headache Discussed importance of protein consumption for muscle maintenance as well as strength and resistance training ,probiotics, B12 complex biotin , iron and other nutrients, To help avoid telogen effluvium We have discussed the lifelong requirement of nutritional supplementation And adherence to an exercise regimen as well as importance of follow-up The patient understands and agrees There is no history of medullary thyroid cancer or multiple endocrine neoplasia There is also no history of cardiovascular disease, hypertension, palpitations, or arrhythmias In the setting of potential stimulant/amphetam ine use such as phentermine We have also discussed risks and benefits, and the use of compounded medications to help offset the national shortages as well as financial implications vs trade name drugs Patient was reassured and welcomed to the practice. We discussed that we stress a hollistic medical approach with emphasis on lifestyle modification. Patient was informed that a healthy lifestyle with exercise and good eating habits can help reduce his risk of medical complications. He is explained that obesity increases his risk of diabetes, cardiovascular disease, or organ damage. We spent a lot of time discussing the relationship between food, exercise, sleep, mental health and obesity. Patient was counseled on the importance EATING local, organic food when possible. Patient was educated on clean 15 and dirty dozen. I provided information about reading books called The Food Rules by Jose Elias Mo and Eat Fat Get Lean by Dr Christopher Rojas. Self education is important in the journey for weight management. Patient was offered diagnostic testing. We want to measure visceral adiposity, advanced body composition, adverse lipids, fatty acid balance, risk for heart disease and atherosclerosis, markers of inflammation and genetic susceptibility. Patient was counseled on weight management and was advised to lose weight using A. Meal Replacement Products We discussed the lifelong requirement of nutritional supplementation and adherence to an exercise regimen as well as importance of dietary follow-up Patient was educated on the replacement products called optifast. This is a good way of taking fixed amount of calories. It has been shown in studies to be ineffective weight management tool. We also recommend maintaining adequate protein intake and muscle composition, 1.5mg/kg This however has to be coupled with lifestyle intervention as well as laboratory data and EKG monitoring. It is impossible to know how a person will tolerate complete meal replacement. The side effects of meal replacement and weight loss could include syncopal attacks, dizziness, gallstones, potential cholecystectomy, possible heart attack and even . The benefits of meal replacement would be potential weight loss but no guarantees can be made. Meal replacement products are not covered by insurance. Once the patient has bought these products we cannot return them B. Lifestyle management which includes several strategies as below 1. Eat a low carbohydrate good fat good protein diet. Eliminate refined carbohydrates from the diet. Continue blood sugar and sugared beverages. Eat local organic when possible. Cook your own meals. Read food labels. None about healthy snacks. Portion control and food with low glycemic index 2. Exercise regularly. Try to get at least 6000 steps a day. Use a predominant to track activity level. Consider using apps like Imagistx, myfitnesspal, lose it, stick as needed for self-monitoring and weight management. Consider group exercises. Consider hiring a personal financial representative. Regular exercise is carvalho to sustainable health and prevents as a buffer against weight regain 3. Sleep is most important for healing. Tried to sleep at least 8 hours a night. A good quality sleep needs a sleep ritual with ideal room temperature of around 68. It might help to take a shower and have no electronics in the room and sleep in a very dark room without artificial light. Start her sleep routine and get up early in the morning and go to bed on time 4. Make a social connection. Surround yourself with positive people with positive energy. Connect with friends and family. 5. Get into the habit of meditating and mindfulness while doing everything. 6. Go outside and connect with nature. C. Prescription medications Patient was educated on the use of prescription medications for medical weight loss. This is a growing list and includes phentermine, Topamax,Qsymia, contrave, belviq and saxenda. All prescription medications could have side effects including but not limited to kidney stones, seizure disorder cardiac arrhythmias heart attack pancreatitis etc. etc.. Patient was encouraged to read the prescription insert and have coaching with their pharmacist and make an informed decision about taking medication and know that these medications are being prescribed with good intentions and we do not know how a patient would react to her medication. Sudden medications are FDA approved for weight loss and there is also off label use depending on patient's inability to afford medications in an attempt to lose weight D. Behavioral counseling was done to establish a relationship between food and an mood. Patient was provided information about local counseling and psychiatry and Dr Andres at [facility]. We would like to cover regular topics and build on low glycemic eating exercise mindful eating, using yoga and meditation along with deep breathing and connecting with friends and family. E. MASS PAT reviewed, Patient's current medications were reviewed and opinion was given on medication that can cause weight gain and can be substituted F. Patient was assessed for risk with obesity including and not limiting to atherosclerosis heart disease stroke kidney disease, restrictive lung disease, irritable bowel syndrome and overall mortality. Risk of developing prediabetes diabetes and metabolic syndrome was discussed G. Therapeutic plan: We have decided to make therapeutic plan which would include choosing wisely on calories restricting portion getting active, tracking weight, getting good quality sleep and working on time management H. Patient will follow up in (4) weeks for weight management Of note, some information is being carried forward from prior records for informational purposes only and is being cited so that efficiency, safety and quality of the patient's care is not compromised This note was prepared using voice recognition software and direct typing Please excuse inadvertent psychologist social or typing errors, or uncorrected word substitutions Although every attempt has been made by the provider to proofread this document, occasional misspellings and typographical errors may still be present Due to the previous pandemic, and the use of personal protective equipment (PPE) This may decrease voice recognition accuracy Inadvertent psychologist social errors may occur 07/30/2023 Morbid obesity (ICD-10 - E66.01) 08/07/2023 Morbid obesity (ICD-10 - E66.01) #Weight Management 08/07/2023 [facility] Thyroid function is very inconsistent and sporadic at the moment which can alter and hinder weight loss 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 fitness technician and rechecking labs every 4 weeks or [...] to be obese with a BMI of (47). Patient has class (3) obesity. We are a board certified obesity and weight management practice Patient has trialed behavioral modification, dietary restrictions and exercise for a minimum of 6 months The most recent [place] [employer] endocrinologists and [place] [employer] guidelines recommend patients who [...] mentioned above and not solely appetite suppression. We have discussed the mechanism of GLP-1's/GIP, dual incretins, appetitite suppressants I think this would be fantastic option for her given her metabolic workup and body composition We have discussed the risks and benefits and side effects including/and not limited to Sarcopenia, intestinal obstruction, constipation, nausea, lethargy, headache Discussed importance of protein consumption for muscle maintenance as well as strength and resistance training ,probiotics, B12 complex biotin , iron and other nutrients, To help avoid telogen effluvium We have discussed the lifelong requirement of nutritional supplementation And adherence to an exercise regimen as well as importance of follow-up The patient understands and agrees There is no history of medullary thyroid cancer or multiple endocrine neoplasia There is also no history of cardiovascular disease, hypertension, palpitations, or arrhythmias In the setting of potential stimulant/amphetam ine use such as phentermine We have also discussed risks and benefits, and the use of compounded medications to help offset the national shortages as well as financial implications vs trade name drugs Patient was reassured and welcomed to the practice. We discussed that we stress a hollistic medical approach with emphasis on lifestyle modification. Patient was informed that a healthy lifestyle with exercise and good eating habits can help reduce his risk of medical complications. He is explained that obesity increases his risk of diabetes, cardiovascular disease, or organ damage. We spent a lot of time discussing the relationship between food, exercise, sleep, mental health and obesity. Patient was counseled on the importance EATING local, organic food when possible. Patient was educated on clean 15 and dirty dozen. I provided information about reading books called The Food Rules by Jose Elias Mo and Eat Fat Get Lean by Dr Christopher Rojas. Self education is important in the journey for weight management. Patient was offered diagnostic testing. We want to measure visceral adiposity, advanced body composition, adverse lipids, fatty acid balance, risk for heart disease and atherosclerosis, markers of inflammation and genetic susceptibility. Patient was counseled on weight management and was advised to lose weight using A. Meal Replacement Products We discussed the lifelong requirement of nutritional supplementation and adherence to an exercise regimen as well as importance of dietary follow-up Patient was educated on the replacement products called optifast. This is a good way of taking fixed amount of calories. It has been shown in studies to be ineffective weight management tool. We also recommend maintaining adequate protein intake and muscle composition, 1.5mg/kg This however has to be coupled with lifestyle intervention as well as laboratory data and EKG monitoring. It is impossible to know how a person will tolerate complete meal replacement. The side effects of meal replacement and weight loss could include syncopal attacks, dizziness, gallstones, potential cholecystectomy, possible heart attack and even . The benefits of meal replacement would be potential weight loss but no guarantees can be made. Meal replacement products are not covered by insurance. Once the patient has bought these products we cannot return them B. Lifestyle management which includes several strategies as below 1. Eat a low carbohydrate good fat good protein diet. Eliminate refined carbohydrates from the diet. Continue blood sugar and sugared beverages. Eat local organic when possible. Cook your own meals. Read food labels. None about healthy snacks. Portion control and food with low glycemic index 2. Exercise regularly. Try to get at least 6000 steps a day. Use a predominant to track activity level. Consider using apps like Imagistx, Drivypal, lose it, stick as needed for self-monitoring and weight management. Consider group exercises. Consider hiring a personal financial representative. Regular exercise is carvalho to sustainable health and prevents as a buffer against weight regain 3. Sleep is most important for healing. Tried to sleep at least 8 hours a night. A good quality sleep needs a sleep ritual with ideal room temperature of around 68. It might help to take a shower and have no electronics in the room and sleep in a very dark room without artificial light. Start her sleep routine and get up early in the morning and go to bed on time 4. Make a social connection. Surround yourself with positive people with positive energy. Connect with friends and family. 5. Get into the habit of meditating and mindfulness while doing everything. 6. Go outside and connect with nature. C. Prescription medications Patient was educated on the use of prescription medications for medical weight loss. This is a growing list and includes phentermine, Topamax,Qsymia, contrave, belviq and saxenda. All prescription medications could have side effects including but not limited to kidney stones, seizure disorder cardiac arrhythmias heart attack pancreatitis etc. etc.. Patient was encouraged to read the prescription insert and have coaching with their pharmacist and make an informed decision about taking medication and know that these medications are being prescribed with good intentions and we do not know how a patient would react to her medication. Sudden medications are FDA approved for weight loss and there is also off label use depending on patient's inability to afford medications in an attempt to lose weight D. Behavioral counseling was done to establish a relationship between food and an mood. Patient was provided information about local counseling and psychiatry and Dr Andres at [facility]. We would like to cover regular topics and build on low glycemic eating exercise mindful eating, using yoga and meditation along with deep breathing and connecting with friends and family. E. MASS PAT reviewed, Patient's current medications were reviewed and opinion was given on medication that can cause weight gain and can be substituted F. Patient was assessed for risk with obesity including and not limiting to atherosclerosis heart disease stroke kidney disease, restrictive lung disease, irritable bowel syndrome and overall mortality. Risk of developing prediabetes diabetes and metabolic syndrome was discussed G. Therapeutic plan: We have decided to make therapeutic plan which would include choosing wisely on calories restricting portion getting active, tracking weight, getting good quality sleep and working on time management H. Patient will follow up in (4) weeks for weight management Of note, some information is being carried forward from prior records for informational purposes only and is being cited so that efficiency, safety and quality of the patient's care is not compromised This note was prepared using voice recognition software and direct typing Please excuse inadvertent psychologist social or typing errors, or uncorrected word substitutions Although every attempt has been made by the provider to proofread this document, occasional misspellings and typographical errors may still be present Due to the previous pandemic, and the use of personal protective equipment (PPE) This may decrease voice recognition accuracy Inadvertent psychologist social errors may occur 08/07/2023 BMI 45.0-49.9, adult (ICD-10 - Z68.42) #Weight Management 08/07/2023 [facility] Thyroid function is very inconsistent and sporadic at the moment which can alter and hinder weight loss 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 fitness technician and rechecking labs every 4 weeks or [...] to be obese with a BMI of (47). Patient has class (3) obesity. We are a board certified obesity and weight management practice Patient has trialed behavioral modification, dietary restrictions and exercise for a minimum of 6 months The most recent [place] [employer] endocrinologists and [place] [employer] guidelines recommend patients who [...] mentioned above and not solely appetite suppression. We have discussed the mechanism of GLP-1's/GIP, dual incretins, appetitite suppressants I think this would be fantastic option for her given her metabolic workup and body composition We have discussed the risks and benefits and side effects including/and not limited to Sarcopenia, intestinal obstruction, constipation, nausea, lethargy, headache Discussed importance of protein consumption for muscle maintenance as well as strength and resistance training ,probiotics, B12 complex biotin , iron and other nutrients, To help avoid telogen effluvium We have discussed the lifelong requirement of nutritional supplementation And adherence to an exercise regimen as well as importance of follow-up The patient understands and agrees There is no history of medullary thyroid cancer or multiple endocrine neoplasia There is also no history of cardiovascular disease, hypertension, palpitations, or arrhythmias In the setting of potential stimulant/amphetam ine use such as phentermine We have also discussed risks and benefits, and the use of compounded medications to help offset the national shortages as well as financial implications vs trade name drugs Patient was reassured and welcomed to the practice. We discussed that we stress a hollistic medical approach with emphasis on lifestyle modification. Patient was informed that a healthy lifestyle with exercise and good eating habits can help reduce his risk of medical complications. He is explained that obesity increases his risk of diabetes, cardiovascular disease, or organ damage. We spent a lot of time discussing the relationship between food, exercise, sleep, mental health and obesity. Patient was counseled on the importance EATING local, organic food when possible. Patient was educated on clean 15 and dirty dozen. I provided information about reading books called The Food Rules by Jose Elias Mo and Eat Fat Get Lean by Dr Christopher Rojas. Self education is important in the journey for weight management. Patient was offered diagnostic testing. We want to measure visceral adiposity, advanced body composition, adverse lipids, fatty acid balance, risk for heart disease and atherosclerosis, markers of inflammation and genetic susceptibility. Patient was counseled on weight management and was advised to lose weight using A. Meal Replacement Products We discussed the lifelong requirement of nutritional supplementation and adherence to an exercise regimen as well as importance of dietary follow-up Patient was educated on the replacement products called optifast. This is a good way of taking fixed amount of calories. It has been shown in studies to be ineffective weight management tool. We also recommend maintaining adequate protein intake and muscle composition, 1.5mg/kg This however has to be coupled with lifestyle intervention as well as laboratory data and EKG monitoring. It is impossible to know how a person will tolerate complete meal replacement. The side effects of meal replacement and weight loss could include syncopal attacks, dizziness, gallstones, potential cholecystectomy, possible heart attack and even . The benefits of meal replacement would be potential weight loss but no guarantees can be made. Meal replacement products are not covered by insurance. Once the patient has bought these products we cannot return them B. Lifestyle management which includes several strategies as below 1. Eat a low carbohydrate good fat good protein diet. Eliminate refined carbohydrates from the diet. Continue blood sugar and sugared beverages. Eat local organic when possible. Cook your own meals. Read food labels. None about healthy snacks. Portion control and food with low glycemic index 2. Exercise regularly. Try to get at least 6000 steps a day. Use a predominant to track activity level. Consider using apps like Imagistx, Drivyp[employer], lose it, stick as needed for self-monitoring and weight management. Consider group exercises. Consider hiring a personal financial representative. Regular exercise is carvalho to sustainable health and prevents as a buffer against weight regain 3. Sleep is most important for healing. Tried to sleep at least 8 hours a night. A good quality sleep needs a sleep ritual with ideal room temperature of around 68. It might help to take a shower and have no electronics in the room and sleep in a very dark room without artificial light. Start her sleep routine and get up early in the morning and go to bed on time 4. Make a social connection. Surround yourself with positive people with positive energy. Connect with friends and family. 5. Get into the habit of meditating and mindfulness while doing everything. 6. Go outside and connect with nature. C. Prescription medications Patient was educated on the use of prescription medications for medical weight loss. This is a growing list and includes phentermine, Topamax,Qsymia, contrave, belviq and saxenda. All prescription medications could have side effects including but not limited to kidney stones, seizure disorder cardiac arrhythmias heart attack pancreatitis etc. etc.. Patient was encouraged to read the prescription insert and have coaching with their pharmacist and make an informed decision about taking medication and know that these medications are being prescribed with good intentions and we do not know how a patient would react to her medication. Sudden medications are FDA approved for weight loss and there is also off label use depending on patient's inability to afford medications in an attempt to lose weight D. Behavioral counseling was done to establish a relationship between food and an mood. Patient was provided information about local counseling and psychiatry and Dr Andres at [facility]. We would like to cover regular topics and build on low glycemic eating exercise mindful eating, using yoga and meditation along with deep breathing and connecting with friends and family. E. MASS PAT reviewed, Patient's current medications were reviewed and opinion was given on medication that can cause weight gain and can be substituted F. Patient was assessed for risk with obesity including and not limiting to atherosclerosis heart disease stroke kidney disease, restrictive lung disease, irritable bowel syndrome and overall mortality. Risk of developing prediabetes diabetes and metabolic syndrome was discussed G. Therapeutic plan: We have decided to make therapeutic plan which would include choosing wisely on calories restricting portion getting active, tracking weight, getting good quality sleep and working on time management H. Patient will follow up in (4) weeks for weight management Of note, some information is being carried forward from prior records for informational purposes only and is being cited so that efficiency, safety and quality of the patient's care is not compromised This note was prepared using voice recognition software and direct typing Please excuse inadvertent psychologist social or typing errors, or uncorrected word substitutions Although every attempt has been made by the provider to proofread this document, occasional misspellings and typographical errors may still be present Due to the previous pandemic, and the use of personal protective equipment (PPE) This may decrease voice recognition accuracy Inadvertent psychologist social errors may occur 10/16/2023 Morbid obesity (ICD-10 - E66.01) #Weight Management 10/16/2023 Labs reviewed from [facility] September 2023 thriving Given ongoing weight loss this may be a recurrent problem until her weight stabilizes 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 fitness technician and rechecking labs every 4 weeks or [...] to be obese with a BMI of (45). Patient has class (3) obesity. We are a board certified obesity and weight management practice Patient has trialed behavioral modification, dietary restrictions and exercise for a minimum of 6 months The most recent [place] [employer]ocrinologists and [place] [employer] guidelines recommend patients who [...] mentioned above and not solely appetite suppression. We have discussed the mechanism of GLP-1's/GIP, dual incretins, appetitite suppressants I think this would be fantastic option for her given her metabolic workup and body composition We have discussed the risks and benefits and side effects including/and not limited to Sarcopenia, intestinal obstruction, constipation, nausea, lethargy, headache Discussed importance of protein consumption for muscle maintenance as well as strength and resistance training ,probiotics, B12 complex biotin , iron and other nutrients, To help avoid telogen effluvium We have discussed the lifelong requirement of nutritional supplementation And adherence to an exercise regimen as well as importance of follow-up The patient understands and agrees There is no history of medullary thyroid cancer or multiple endocrine neoplasia There is also no history of cardiovascular disease, hypertension, palpitations, or arrhythmias In the setting of potential stimulant/amphetam ine use such as phentermine We have also discussed risks and benefits, and the use of compounded medications to help offset the national shortages as well as financial implications vs trade name drugs Patient was reassured and welcomed to the practice. We discussed that we stress a hollistic medical approach with emphasis on lifestyle modification. Patient was informed that a healthy lifestyle with exercise and good eating habits can help reduce his risk of medical complications. He is explained that obesity increases his risk of diabetes, cardiovascular disease, or organ damage. We spent a lot of time discussing the relationship between food, exercise, sleep, mental health and obesity. Patient was counseled on the importance EATING local, organic food when possible. Patient was educated on clean 15 and dirty dozen. I provided information about reading books called The Food Rules by Jose Elias Mo and Eat Fat Get Lean by Dr Christopher Rojas. Self education is important in the journey for weight management. Patient was offered diagnostic testing. We want to measure visceral adiposity, advanced body composition, adverse lipids, fatty acid balance, risk for heart disease and atherosclerosis, markers of inflammation and genetic susceptibility. Patient was counseled on weight management and was advised to lose weight using A. Meal Replacement Products We discussed the lifelong requirement of nutritional supplementation and adherence to an exercise regimen as well as importance of dietary follow-up Patient was educated on the replacement products called optifast. This is a good way of taking fixed amount of calories. It has been shown in studies to be ineffective weight management tool. We also recommend maintaining adequate protein intake and muscle composition, 1.5mg/kg This however has to be coupled with lifestyle intervention as well as laboratory data and EKG monitoring. It is impossible to know how a person will tolerate complete meal replacement. The side effects of meal replacement and weight loss could include syncopal attacks, dizziness, gallstones, potential cholecystectomy, possible heart attack and even . The benefits of meal replacement would be potential weight loss but no guarantees can be made. Meal replacement products are not covered by insurance. Once the patient has bought these products we cannot return them B. Lifestyle management which includes several strategies as below 1. Eat a low carbohydrate good fat good protein diet. Eliminate refined carbohydrates from the diet. Continue blood sugar and sugared beverages. Eat local organic when possible. Cook your own meals. Read food labels. None about healthy snacks. Portion control and food with low glycemic index 2. Exercise regularly. Try to get at least 6000 steps a day. Use a predominant to track activity level. Consider using apps like [employer], [employer], lose it, stick as needed for self-monitoring and weight management. Consider group exercises. Consider hiring a personal financial representative. Regular exercise is carvalho to sustainable health and prevents as a buffer against weight regain 3. Sleep is most important for healing. Tried to sleep at least 8 hours a night. A good quality sleep needs a sleep ritual with ideal room temperature of around 68. It might help to take a shower and have no electronics in the room and sleep in a very dark room without artificial light. Start her sleep routine and get up early in the morning and go to bed on time 4. Make a social connection. Surround yourself with positive people with positive energy. Connect with friends and family. 5. Get into the habit of meditating and mindfulness while doing everything. 6. Go outside and connect with nature. C. Prescription medications Patient was educated on the use of prescription medications for medical weight loss. This is a growing list and includes phentermine, Topamax,Qsymia, contrave, belviq and saxenda. All prescription medications could have side effects including but not limited to kidney stones, seizure disorder cardiac arrhythmias heart attack pancreatitis etc. etc.. Patient was encouraged to read the prescription insert and have coaching with their pharmacist and make an informed decision about taking medication and know that these medications are being prescribed with good intentions and we do not know how a patient would react to her medication. Sudden medications are FDA approved for weight loss and there is also off label use depending on patient's inability to afford medications in an attempt to lose weight D. Behavioral counseling was done to establish a relationship between food and an mood. Patient was provided information about local counseling and psychiatry and Dr Andres at [facility]. We would like to cover regular topics and build on low glycemic eating exercise mindful eating, using yoga and meditation along with deep breathing and connecting with friends and family. E. MASS PAT reviewed, Patient's current medications were reviewed and opinion was given on medication that can cause weight gain and can be substituted F. Patient was assessed for risk with obesity including and not limiting to atherosclerosis heart disease stroke kidney disease, restrictive lung disease, irritable bowel syndrome and overall mortality. Risk of developing prediabetes diabetes and metabolic syndrome was discussed G. Therapeutic plan: We have decided to make therapeutic plan which would include choosing wisely on calories restricting portion getting active, tracking weight, getting good quality sleep and working on time management H. Patient will follow up in (4) weeks for weight management Of note, some information is being carried forward from prior records for informational purposes only and is being cited so that efficiency, safety and quality of the patient's care is not compromised This note was prepared using voice recognition software and direct typing Please excuse inadvertent psychologist social or typing errors, or uncorrected word substitutions Although every attempt has been made by the provider to proofread this document, occasional misspellings and typographical errors may still be present Due to the previous pandemic, and the use of personal protective equipment (PPE) This may decrease voice recognition accuracy Inadvertent psychologist social errors may occur 10/22/2023 Morbid obesity (ICD-10 - E66.01) 11/12/2023 Morbid obesity (ICD-10 - E66.01) 12/18/2023 Morbid obesity (ICD-10 - E66.01) #Weight Management 12/18/2023 Labs reviewed from [facility] September 2023 thriving Given ongoing weight loss this may be a recurrent problem until her weight stabilizes 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 fitness technician and rechecking labs every 4 weeks or [...] minimum of 6 months The most recent [place] [employer] endocrinologists and [place] [employer] guidelines recommend patients who [...] software and direct typing Please excuse inadvertent psychologist social or typing errors, or uncorrected word substitutions Although every attempt has been made by the provider to proofread this document, occasional misspellings and typographical errors may still be present Due to the previous pandemic, and the use of personal protective equipment (PPE) This may decrease voice recognition accuracy Inadvertent psychologist social errors may occur 10/16/2023 BMI 45.0-49.9, adult (ICD-10 - Z68.42) #Weight Management 10/16/2023 Labs reviewed from [facility] September 2023 thriving Given ongoing weight loss this may be a recurrent problem until her weight stabilizes 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 fitness technician and rechecking labs every 4 weeks or [...] to be obese with a BMI of (45). Patient has class (3) obesity. We are a board certified obesity and weight management practice Patient has trialed behavioral modification, dietary restrictions and exercise for a minimum of 6 months The most recent [place] [employer]ocrinologists and [place] [employer] guidelines recommend patients who [...] mentioned above and not solely appetite suppression. We have discussed the mechanism of GLP-1's/GIP, dual incretins, appetitite suppressants I think this would be fantastic option for her given her metabolic workup and body composition We have discussed the risks and benefits and side effects including/and not limited to Sarcopenia, intestinal obstruction, constipation, nausea, lethargy, headache Discussed importance of protein consumption for muscle maintenance as well as strength and resistance training ,probiotics, B12 complex biotin , iron and other nutrients, To help avoid telogen effluvium We have discussed the lifelong requirement of nutritional supplementation And adherence to an exercise regimen as well as importance of follow-up The patient understands and agrees There is no history of medullary thyroid cancer or multiple endocrine neoplasia There is also no history of cardiovascular disease, hypertension, palpitations, or arrhythmias In the setting of potential stimulant/amphetam ine use such as phentermine We have also discussed risks and benefits, and the use of compounded medications to help offset the national shortages as well as financial implications vs trade name drugs Patient was reassured and welcomed to the practice. We discussed that we stress a hollistic medical approach with emphasis on lifestyle modification. Patient was informed that a healthy lifestyle with exercise and good eating habits can help reduce his risk of medical complications. He is explained that obesity increases his risk of diabetes, cardiovascular disease, or organ damage. We spent a lot of time discussing the relationship between food, exercise, sleep, mental health and obesity. Patient was counseled on the importance EATING local, organic food when possible. Patient was educated on clean 15 and dirty dozen. I provided information about reading books called The Food Rules by Jose Elias Mo and Eat Fat Get Lean by Dr Christopher Rojas. Self education is important in the journey for weight management. Patient was offered diagnostic testing. We want to measure visceral adiposity, advanced body composition, adverse lipids, fatty acid balance, risk for heart disease and atherosclerosis, markers of inflammation and genetic susceptibility. Patient was counseled on weight management and was advised to lose weight using A. Meal Replacement Products We discussed the lifelong requirement of nutritional supplementation and adherence to an exercise regimen as well as importance of dietary follow-up Patient was educated on the replacement products called optifast. This is a good way of taking fixed amount of calories. It has been shown in studies to be ineffective weight management tool. We also recommend maintaining adequate protein intake and muscle composition, 1.5mg/kg This however has to be coupled with lifestyle intervention as well as laboratory data and EKG monitoring. It is impossible to know how a person will tolerate complete meal replacement. The side effects of meal replacement and weight loss could include syncopal attacks, dizziness, gallstones, potential cholecystectomy, possible heart attack and even . The benefits of meal replacement would be potential weight loss but no guarantees can be made. Meal replacement products are not covered by insurance. Once the patient has bought these products we cannot return them B. Lifestyle management which includes several strategies as below 1. Eat a low carbohydrate good fat good protein diet. Eliminate refined carbohydrates from the diet. Continue blood sugar and sugared beverages. Eat local organic when possible. Cook your own meals. Read food labels. None about healthy snacks. Portion control and food with low glycemic index 2. Exercise regularly. Try to get at least 6000 steps a day. Use a predominant to track activity level. Consider using apps like Imagistx, myfitnesspal, lose it, stick as needed for self-monitoring and weight management. Consider group exercises. Consider hiring a personal financial representative. Regular exercise is carvalho to sustainable health and prevents as a buffer against weight regain 3. Sleep is most important for healing. Tried to sleep at least 8 hours a night. A good quality sleep needs a sleep ritual with ideal room temperature of around 68. It might help to take a shower and have no electronics in the room and sleep in a very dark room without artificial light. Start her sleep routine and get up early in the morning and go to bed on time 4. Make a social connection. Surround yourself with positive people with positive energy. Connect with friends and family. 5. Get into the habit of meditating and mindfulness while doing everything. 6. Go outside and connect with nature. C. Prescription medications Patient was educated on the use of prescription medications for medical weight loss. This is a growing list and includes phentermine, Topamax,Qsymia, contrave, belviq and saxenda. All prescription medications could have side effects including but not limited to kidney stones, seizure disorder cardiac arrhythmias heart attack pancreatitis etc. etc.. Patient was encouraged to read the prescription insert and have coaching with their pharmacist and make an informed decision about taking medication and know that these medications are being prescribed with good intentions and we do not know how a patient would react to her medication. Sudden medications are FDA approved for weight loss and there is also off label use depending on patient's inability to afford medications in an attempt to lose weight D. Behavioral counseling was done to establish a relationship between food and an mood. Patient was provided information about local counseling and psychiatry and Dr Andres at [facility]. We would like to cover regular topics and build on low glycemic eating exercise mindful eating, using yoga and meditation along with deep breathing and connecting with friends and family. E. MASS PAT reviewed, Patient's current medications were reviewed and opinion was given on medication that can cause weight gain and can be substituted F. Patient was assessed for risk with obesity including and not limiting to atherosclerosis heart disease stroke kidney disease, restrictive lung disease, irritable bowel syndrome and overall mortality. Risk of developing prediabetes diabetes and metabolic syndrome was discussed G. Therapeutic plan: We have decided to make therapeutic plan which would include choosing wisely on calories restricting portion getting active, tracking weight, getting good quality sleep and working on time management H. Patient will follow up in (4) weeks for weight management Of note, some information is being carried forward from prior records for informational purposes only and is being cited so that efficiency, safety and quality of the patient's care is not compromised This note was prepared using voice recognition software and direct typing Please excuse inadvertent psychologist social or typing errors, or uncorrected word substitutions Although every attempt has been made by the provider to proofread this document, occasional misspellings and typographical errors may still be present Due to the previous pandemic, and the use of personal protective equipment (PPE) This may decrease voice recognition accuracy Inadvertent psychologist social errors may occur 12/18/2023 BMI 45.0-49.9, adult (ICD-10 - Z68.42) #Weight Management 12/18/2023 Labs reviewed from [facility] September 2023 thriving Given ongoing weight loss this may be a recurrent problem until her weight stabilizes 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 fitness technician and rechecking labs every 4 weeks or [...] minimum of 6 months The most recent [place] [employer]in[employer] and [place] [employer] guidelines recommend patients who [...] software and direct typing Please excuse inadvertent psychologist social or typing errors, or uncorrected word substitutions Although every attempt has been made by the provider to proofread this document, occasional misspellings and typographical errors may still be present Due to the previous pandemic, and the use of personal protective equipment (PPE) This may decrease voice recognition accuracy Inadvertent psychologist social errors may occur 08/07/2023 Dietary counseling and surveillance (ICD-10 - Z71.3) #Weight Management 08/07/2023 thriving Thyroid function is very inconsistent and sporadic at the moment which can alter and hinder weight loss 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 fitness technician and rechecking labs every 4 weeks or [...] to be obese with a BMI of (47). Patient has class (3) obesity. We are a board certified obesity and weight management practice Patient has trialed behavioral modification, dietary restrictions and exercise for a minimum of 6 months The most recent [place] [employer]in[employer] and [place] [employer] guidelines recommend patients who [...] mentioned above and not solely appetite suppression. We have discussed the mechanism of GLP-1's/GIP, dual incretins, appetitite suppressants I think this would be fantastic option for her given her metabolic workup and body composition We have discussed the risks and benefits and side effects including/and not limited to Sarcopenia, intestinal obstruction, constipation, nausea, lethargy, headache Discussed importance of protein consumption for muscle maintenance as well as strength and resistance training ,probiotics, B12 complex biotin , iron and other nutrients, To help avoid telogen effluvium We have discussed the lifelong requirement of nutritional supplementation And adherence to an exercise regimen as well as importance of follow-up The patient understands and agrees There is no history of medullary thyroid cancer or multiple endocrine neoplasia There is also no history of cardiovascular disease, hypertension, palpitations, or arrhythmias In the setting of potential stimulant/amphetam ine use such as phentermine We have also discussed risks and benefits, and the use of compounded medications to help offset the national shortages as well as financial implications vs trade name drugs Patient was reassured and welcomed to the practice. We discussed that we stress a hollistic medical approach with emphasis on lifestyle modification. Patient was informed that a healthy lifestyle with exercise and good eating habits can help reduce his risk of medical complications. He is explained that obesity increases his risk of diabetes, cardiovascular disease, or organ damage. We spent a lot of time discussing the relationship between food, exercise, sleep, mental health and obesity. Patient was counseled on the importance EATING local, organic food when possible. Patient was educated on clean 15 and dirty dozen. I provided information about reading books called The Food Rules by Jose Elias Mo and Eat Fat Get Lean by Dr Christopher Rojas. Self education is important in the journey for weight management. Patient was offered diagnostic testing. We want to measure visceral adiposity, advanced body composition, adverse lipids, fatty acid balance, risk for heart disease and atherosclerosis, markers of inflammation and genetic susceptibility. Patient was counseled on weight management and was advised to lose weight using A. Meal Replacement Products We discussed the lifelong requirement of nutritional supplementation and adherence to an exercise regimen as well as importance of dietary follow-up Patient was educated on the replacement products called optifast. This is a good way of taking fixed amount of calories. It has been shown in studies to be ineffective weight management tool. We also recommend maintaining adequate protein intake and muscle composition, 1.5mg/kg This however has to be coupled with lifestyle intervention as well as laboratory data and EKG monitoring. It is impossible to know how a person will tolerate complete meal replacement. The side effects of meal replacement and weight loss could include syncopal attacks, dizziness, gallstones, potential cholecystectomy, possible heart attack and even . The benefits of meal replacement would be potential weight loss but no guarantees can be made. Meal replacement products are not covered by insurance. Once the patient has bought these products we cannot return them B. Lifestyle management which includes several strategies as below 1. Eat a low carbohydrate good fat good protein diet. Eliminate refined carbohydrates from the diet. Continue blood sugar and sugared beverages. Eat local organic when possible. Cook your own meals. Read food labels. None about healthy snacks. Portion control and food with low glycemic index 2. Exercise regularly. Try to get at least 6000 steps a day. Use a predominant to track activity level. Consider using apps like Imag[employer], myfitnesspal, lose it, stick as needed for self-monitoring and weight management. Consider group exercises. Consider hiring a personal financial representative. Regular exercise is carvalho to sustainable health and prevents as a buffer against weight regain 3. Sleep is most important for healing. Tried to sleep at least 8 hours a night. A good quality sleep needs a sleep ritual with ideal room temperature of around 68. It might help to take a shower and have no electronics in the room and sleep in a very dark room without artificial light. Start her sleep routine and get up early in the morning and go to bed on time 4. Make a social connection. Surround yourself with positive people with positive energy. Connect with friends and family. 5. Get into the habit of meditating and mindfulness while doing everything. 6. Go outside and connect with nature. C. Prescription medications Patient was educated on the use of prescription medications for medical weight loss. This is a growing list and includes phentermine, Topamax,Qsymia, contrave, belviq and saxenda. All prescription medications could have side effects including but not limited to kidney stones, seizure disorder cardiac arrhythmias heart attack pancreatitis etc. etc.. Patient was encouraged to read the prescription insert and have coaching with their pharmacist and make an informed decision about taking medication and know that these medications are being prescribed with good intentions and we do not know how a patient would react to her medication. Sudden medications are FDA approved for weight loss and there is also off label use depending on patient's inability to afford medications in an attempt to lose weight D. Behavioral counseling was done to establish a relationship between food and an mood. Patient was provided information about local counseling and psychiatry and Dr Andres at [facility]. We would like to cover regular topics and build on low glycemic eating exercise mindful eating, using yoga and meditation along with deep breathing and connecting with friends and family. E. MASS PAT reviewed, Patient's current medications were reviewed and opinion was given on medication that can cause weight gain and can be substituted F. Patient was assessed for risk with obesity including and not limiting to atherosclerosis heart disease stroke kidney disease, restrictive lung disease, irritable bowel syndrome and overall mortality. Risk of developing prediabetes diabetes and metabolic syndrome was discussed G. Therapeutic plan: We have decided to make therapeutic plan which would include choosing wisely on calories restricting portion getting active, tracking weight, getting good quality sleep and working on time management H. Patient will follow up in (4) weeks for weight management Of note, some information is being carried forward from prior records for informational purposes only and is being cited so that efficiency, safety and quality of the patient's care is not compromised This note was prepared using voice recognition software and direct typing Please excuse inadvertent psychologist social or typing errors, or uncorrected word substitutions Although every attempt has been made by the provider to proofread this document, occasional misspellings and typographical errors may still be present Due to the previous pandemic, and the use of personal protective equipment (PPE) This may decrease voice recognition accuracy Inadvertent psychologist social errors may occur 06/25/2023 Type 2 diabetes mellitus without complication, without long-term current use of insulin (ICD-10 - E11.9) #Weight Management 06/25/2023 thriving now qualifies for ortho surgery, R TKR Glycemic control much improved on dual incretin therapy cont Contrave for further appetite suppression and craving control She is currently not on any antidepressants Total time spent today was 30 minutes of which greater than 50% was spent on coordinating and counseling Patient has been found to be obese with a BMI of (47). Patient has class (3) obesity. We are a board certified obesity and weight management practice Patient has trialed behavioral modification, dietary restrictions and exercise for a minimum of 6 months The most recent [place] [employer]ocrinologists and [place] [employer] guidelines recommend patients who [...] mentioned above and not solely appetite suppression. We have discussed the mechanism of GLP-1's/GIP, dual incretins, appetitite suppressants I think this would be fantastic option for her given her metabolic workup and body composition We have discussed the risks and benefits and side effects including/and not limited to Sarcopenia, intestinal obstruction, constipation, nausea, lethargy, headache Discussed importance of protein consumption for muscle maintenance as well as strength and resistance training ,probiotics, B12 complex biotin , iron and other nutrients, To help avoid telogen effluvium We have discussed the lifelong requirement of nutritional supplementation And adherence to an exercise regimen as well as importance of follow-up The patient understands and agrees There is no history of medullary thyroid cancer or multiple endocrine neoplasia There is also no history of cardiovascular disease, hypertension, palpitations, or arrhythmias In the setting of potential stimulant/amphetam ine use such as phentermine We have also discussed risks and benefits, and the use of compounded medications to help offset the national shortages as well as financial implications vs trade name drugs Patient was reassured and welcomed to the practice. We discussed that we stress a hollistic medical approach with emphasis on lifestyle modification. Patient was informed that a healthy lifestyle with exercise and good eating habits can help reduce his risk of medical complications. He is explained that obesity increases his risk of diabetes, cardiovascular disease, or organ damage. We spent a lot of time discussing the relationship between food, exercise, sleep, mental health and obesity. Patient was counseled on the importance EATING local, organic food when possible. Patient was educated on clean 15 and dirty dozen. I provided information about reading books called The Food Rules by Jose Elias Mo and Eat Fat Get Lean by Dr Christopher Rojas. Self education is important in the journey for weight management. Patient was offered diagnostic testing. We want to measure visceral adiposity, advanced body composition, adverse lipids, fatty acid balance, risk for heart disease and atherosclerosis, markers of inflammation and genetic susceptibility. Patient was counseled on weight management and was advised to lose weight using A. Meal Replacement Products We discussed the lifelong requirement of nutritional supplementation and adherence to an exercise regimen as well as importance of dietary follow-up Patient was educated on the replacement products called optifast. This is a good way of taking fixed amount of calories. It has been shown in studies to be ineffective weight management tool. We also recommend maintaining adequate protein intake and muscle composition, 1.5mg/kg This however has to be coupled with lifestyle intervention as well as laboratory data and EKG monitoring. It is impossible to know how a person will tolerate complete meal replacement. The side effects of meal replacement and weight loss could include syncopal attacks, dizziness, gallstones, potential cholecystectomy, possible heart attack and even . The benefits of meal replacement would be potential weight loss but no guarantees can be made. Meal replacement products are not covered by insurance. Once the patient has bought these products we cannot return them B. Lifestyle management which includes several strategies as below 1. Eat a low carbohydrate good fat good protein diet. Eliminate refined carbohydrates from the diet. Continue blood sugar and sugared beverages. Eat local organic when possible. Cook your own meals. Read food labels. None about healthy snacks. Portion control and food with low glycemic index 2. Exercise regularly. Try to get at least 6000 steps a day. Use a predominant to track activity level. Consider using apps like Imagistx, myfitnesspal, lose it, stick as needed for self-monitoring and weight management. Consider group exercises. Consider hiring a personal financial representative. Regular exercise is carvalho to sustainable health and prevents as a buffer against weight regain 3. Sleep is most important for healing. Tried to sleep at least 8 hours a night. A good quality sleep needs a sleep ritual with ideal room temperature of around 68. It might help to take a shower and have no electronics in the room and sleep in a very dark room without artificial light. Start her sleep routine and get up early in the morning and go to bed on time 4. Make a social connection. Surround yourself with positive people with positive energy. Connect with friends and family. 5. Get into the habit of meditating and mindfulness while doing everything. 6. Go outside and connect with nature. C. Prescription medications Patient was educated on the use of prescription medications for medical weight loss. This is a growing list and includes phentermine, Topamax,Qsymia, contrave, belviq and saxenda. All prescription medications could have side effects including but not limited to kidney stones, seizure disorder cardiac arrhythmias heart attack pancreatitis etc. etc.. Patient was encouraged to read the prescription insert and have coaching with their pharmacist and make an informed decision about taking medication and know that these medications are being prescribed with good intentions and we do not know how a patient would react to her medication. Sudden medications are FDA approved for weight loss and there is also off label use depending on patient's inability to afford medications in an attempt to lose weight D. Behavioral counseling was done to establish a relationship between food and an mood. Patient was provided information about local counseling and psychiatry and Dr Andres at [facility]. We would like to cover regular topics and build on low glycemic eating exercise mindful eating, using yoga and meditation along with deep breathing and connecting with friends and family. E. MASS PAT reviewed, Patient's current medications were reviewed and opinion was given on medication that can cause weight gain and can be substituted F. Patient was assessed for risk with obesity including and not limiting to atherosclerosis heart disease stroke kidney disease, restrictive lung disease, irritable bowel syndrome and overall mortality. Risk of developing prediabetes diabetes and metabolic syndrome was discussed G. Therapeutic plan: We have decided to make therapeutic plan which would include choosing wisely on calories restricting portion getting active, tracking weight, getting good quality sleep and working on time management H. Patient will follow up in (4) weeks for weight management Of note, some information is being carried forward from prior records for informational purposes only and is being cited so that efficiency, safety and quality of the patient's care is not compromised This note was prepared using voice recognition software and direct typing Please excuse inadvertent psychologist social or typing errors, or uncorrected word substitutions Although every attempt has been made by the provider to proofread this document, occasional misspellings and typographical errors may still be present Due to the previous pandemic, and the use of personal protective equipment (PPE) This may decrease voice recognition accuracy Inadvertent psychologist social errors may occur 05/08/2023 BMI 50.0-59.9, adult (ICD-10 - Z68.43) #Weight Management 05/08/2023 Glycemic control much improved on dual incretin therapy We discussed introducing Contrave for further appetite suppression and craving control She is currently not on any antidepressants Total time spent today was 30 minutes of which greater than 50% was spent on coordinating and counseling Patient has been found to be obese with a BMI of (51). Patient has class (3) obesity. We are a board certified obesity and weight management practice Patient has trialed behavioral modification, dietary restrictions and exercise for a minimum of 6 months The most recent [place] [employer] endocrinologists and [place] [employer] guidelines recommend patients who [...] mentioned above and not solely appetite suppression. We have discussed the mechanism of GLP-1's/GIP, dual incretins, appetitite suppressants I think this would be fantastic option for her given her metabolic workup and body composition We have discussed the risks and benefits and side effects including/and not limited to Sarcopenia, intestinal obstruction, constipation, nausea, lethargy, headache Discussed importance of protein consumption for muscle maintenance as well as strength and resistance training ,probiotics, B12 complex biotin , iron and other nutrients, To help avoid telogen effluvium We have discussed the lifelong requirement of nutritional supplementation And adherence to an exercise regimen as well as importance of follow-up The patient understands and agrees There is no history of medullary thyroid cancer or multiple endocrine neoplasia There is also no history of cardiovascular disease, hypertension, palpitations, or arrhythmias In the setting of potential stimulant/amphetam ine use such as phentermine We have also discussed risks and benefits, and the use of compounded medications to help offset the national shortages as well as financial implications vs trade name drugs Patient was reassured and welcomed to the practice. We discussed that we stress a hollistic medical approach with emphasis on lifestyle modification. Patient was informed that a healthy lifestyle with exercise and good eating habits can help reduce his risk of medical complications. He is explained that obesity increases his risk of diabetes, cardiovascular disease, or organ damage. We spent a lot of time discussing the relationship between food, exercise, sleep, mental health and obesity. Patient was counseled on the importance EATING local, organic food when possible. Patient was educated on clean 15 and dirty dozen. I provided information about reading books called The Food Rules by Jose Elias Mo and Eat Fat Get Lean by Dr Christopher Rojas. Self education is important in the journey for weight management. Patient was offered diagnostic testing. We want to measure visceral adiposity, advanced body composition, adverse lipids, fatty acid balance, risk for heart disease and atherosclerosis, markers of inflammation and genetic susceptibility. Patient was counseled on weight management and was advised to lose weight using A. Meal Replacement Products We discussed the lifelong requirement of nutritional supplementation and adherence to an exercise regimen as well as importance of dietary follow-up Patient was educated on the replacement products called optifast. This is a good way of taking fixed amount of calories. It has been shown in studies to be ineffective weight management tool. We also recommend maintaining adequate protein intake and muscle composition, 1.5mg/kg This however has to be coupled with lifestyle intervention as well as laboratory data and EKG monitoring. It is impossible to know how a person will tolerate complete meal replacement. The side effects of meal replacement and weight loss could include syncopal attacks, dizziness, gallstones, potential cholecystectomy, possible heart attack and even . The benefits of meal replacement would be potential weight loss but no guarantees can be made. Meal replacement products are not covered by insurance. Once the patient has bought these products we cannot return them B. Lifestyle management which includes several strategies as below 1. Eat a low carbohydrate good fat good protein diet. Eliminate refined carbohydrates from the diet. Continue blood sugar and sugared beverages. Eat local organic when possible. Cook your own meals. Read food labels. None about healthy snacks. Portion control and food with low glycemic index 2. Exercise regularly. Try to get at least 6000 steps a day. Use a predominant to track activity level. Consider using apps like [employer], Drivypal, lose it, stick as needed for self-monitoring and weight management. Consider group exercises. Consider hiring a personal financial representative. Regular exercise is carvalho to sustainable health and prevents as a buffer against weight regain 3. Sleep is most important for healing. Tried to sleep at least 8 hours a night. A good quality sleep needs a sleep ritual with ideal room temperature of around 68. It might help to take a shower and have no electronics in the room and sleep in a very dark room without artificial light. Start her sleep routine and get up early in the morning and go to bed on time 4. Make a social connection. Surround yourself with positive people with positive energy. Connect with friends and family. 5. Get into the habit of meditating and mindfulness while doing everything. 6. Go outside and connect with nature. C. Prescription medications Patient was educated on the use of prescription medications for medical weight loss. This is a growing list and includes phentermine, Topamax,Qsymia, contrave, belviq and saxenda. All prescription medications could have side effects including but not limited to kidney stones, seizure disorder cardiac arrhythmias heart attack pancreatitis etc. etc.. Patient was encouraged to read the prescription insert and have coaching with their pharmacist and make an informed decision about taking medication and know that these medications are being prescribed with good intentions and we do not know how a patient would react to her medication. Sudden medications are FDA approved for weight loss and there is also off label use depending on patient's inability to afford medications in an attempt to lose weight D. Behavioral counseling was done to establish a relationship between food and an mood. Patient was provided information about local counseling and psychiatry and Dr Andres at [facility]. We would like to cover regular topics and build on low glycemic eating exercise mindful eating, using yoga and meditation along with deep breathing and connecting with friends and family. E. MASS PAT reviewed, Patient's current medications were reviewed and opinion was given on medication that can cause weight gain and can be substituted F. Patient was assessed for risk with obesity including and not limiting to atherosclerosis heart disease stroke kidney disease, restrictive lung disease, irritable bowel syndrome and overall mortality. Risk of developing prediabetes diabetes and metabolic syndrome was discussed G. Therapeutic plan: We have decided to make therapeutic plan which would include choosing wisely on calories restricting portion getting active, tracking weight, getting good quality sleep and working on time management H. Patient will follow up in (4) weeks for weight management Of note, some information is being carried forward from prior records for informational purposes only and is being cited so that efficiency, safety and quality of the patient's care is not compromised This note was prepared using voice recognition software and direct typing Please excuse inadvertent psychologist social or typing errors, or uncorrected word substitutions Although every attempt has been made by the provider to proofread this document, occasional misspellings and typographical errors may still be present Due to the previous pandemic, and the use of personal protective equipment (PPE) This may decrease voice recognition accuracy Inadvertent psychologist social errors may occur 03/10/2023 BMI 50.0-59.9, adult (ICD-10 - Z68.43) As per HPI dc the sulfonylurea we have cut back her metformin by 50% to 750 mg extended release increase Mounjaro from 12.5 to 15 mg She is Thriving already doing very well on this regimen I will request and coordinate with fitness technician and primary care In office A1c 5.6 today 02/2023 Total time spent today was 30 minutes of which greater than 50% was spent on coordinating and counseling We are a board certified obesity and weight management practice Patient has trialed behavioral modification, dietary restrictions and exercise for a minimum of 6 months The most recent [place] [employer]ocrin[employer] and [place] [employer] guidelines recommend patients who [...] mentioned above and not solely appetite suppression. We have discussed the mechanism of GLP-1's/GIP, dual incretins, appetitite suppressants I think this would be fantastic option for her given her metabolic workup and body composition We have discussed the risks and benefits and side effects including/and not limited to Sarcopenia, intestinal obstruction, constipation, nausea, lethargy, headache Discussed importance of protein consumption for muscle maintenance as well as strength and resistance training ,probiotics, B12 complex biotin , iron and other nutrients, To help avoid telogen effluvium We have discussed the lifelong requirement of nutritional supplementation And adherence to an exercise regimen as well as importance of follow-up The patient understands and agrees There is no history of medullary thyroid cancer or multiple endocrine neoplasia There is also no history of cardiovascular disease, hypertension, palpitations, or arrhythmias In the setting of potential stimulant/amphetam ine use such as phentermine We have also discussed risks and benefits, and the use of compounded medications to help offset the national shortages as well as financial implications vs trade name drugs Patient has been found to be obese with a BMI of (). Patient has class () obesity. Patient was reassured and welcomed to the practice. We discussed that we stress a hollistic medical approach with emphasis on lifestyle modification. Patient was informed that a healthy lifestyle with exercise and good eating habits can help reduce his risk of medical complications. He is explained that obesity increases his risk of diabetes, cardiovascular disease, or organ damage. We spent a lot of time discussing the relationship between food, exercise, sleep, mental health and obesity. Patient was counseled on the importance EATING local, organic food when possible. Patient was educated on clean 15 and dirty dozen. I provided information about reading books called The Food Rules by Jose Elias Mo and Eat Fat Get Lean by Dr Christopher Rojas. Self education is important in the journey for weight management. Patient was offered diagnostic testing. We want to measure visceral adiposity, advanced body composition, adverse lipids, fatty acid balance, risk for heart disease and atherosclerosis, markers of inflammation and genetic susceptibility. Patient was counseled on weight management and was advised to lose weight using A. Meal Replacement Products We discussed the lifelong requirement of nutritional supplementation and adherence to an exercise regimen as well as importance of dietary follow-up Patient was educated on the replacement products called optifast. This is a good way of taking fixed amount of calories. It has been shown in studies to be ineffective weight management tool. We also recommend maintaining adequate protein intake and muscle composition, 1.5mg/kg This however has to be coupled with lifestyle intervention as well as laboratory data and EKG monitoring. It is impossible to know how a person will tolerate complete meal replacement. The side effects of meal replacement and weight loss could include syncopal attacks, dizziness, gallstones, potential cholecystectomy, possible heart attack and even . The benefits of meal replacement would be potential weight loss but no guarantees can be made. Meal replacement products are not covered by insurance. Once the patient has bought these products we cannot return them B. Lifestyle management which includes several strategies as below 1. Eat a low carbohydrate good fat good protein diet. Eliminate refined carbohydrates from the diet. Continue blood sugar and sugared beverages. Eat local organic when possible. Cook your own meals. Read food labels. None about healthy snacks. Portion control and food with low glycemic index 2. Exercise regularly. Try to get at least 6000 steps a day. Use a predominant to track activity level. Consider using apps like Imagistx, Drivypal, lose it, stick as needed for self-monitoring and weight management. Consider group exercises. Consider hiring a personal financial representative. Regular exercise is carvalho to sustainable health and prevents as a buffer against weight regain 3. Sleep is most important for healing. Tried to sleep at least 8 hours a night. A good quality sleep needs a sleep ritual with ideal room temperature of around 68. It might help to take a shower and have no electronics in the room and sleep in a very dark room without artificial light. Start her sleep routine and get up early in the morning and go to bed on time 4. Make a social connection. Surround yourself with positive people with positive energy. Connect with friends and family. 5. Get into the habit of meditating and mindfulness while doing everything. 6. Go outside and connect with nature. C. Prescription medications Patient was educated on the use of prescription medications for medical weight loss. This is a growing list and includes phentermine, Topamax,Qsymia, contrave, belviq and saxenda. All prescription medications could have side effects including but not limited to kidney stones, seizure disorder cardiac arrhythmias heart attack pancreatitis etc. etc.. Patient was encouraged to read the prescription insert and have coaching with their pharmacist and make an informed decision about taking medication and know that these medications are being prescribed with good intentions and we do not know how a patient would react to her medication. Sudden medications are FDA approved for weight loss and there is also off label use depending on patient's inability to afford medications in an attempt to lose weight D. Behavioral counseling was done to establish a relationship between food and an mood. Patient was provided information about local counseling and psychiatry and Dr Andres at [facility]. We would like to cover regular topics and build on low glycemic eating exercise mindful eating, using yoga and meditation along with deep breathing and connecting with friends and family. E. MASS PAT reviewed, Patient's current medications were reviewed and opinion was given on medication that can cause weight gain and can be substituted F. Patient was assessed for risk with obesity including and not limiting to atherosclerosis heart disease stroke kidney disease, restrictive lung disease, irritable bowel syndrome and overall mortality. Risk of developing prediabetes diabetes and metabolic syndrome was discussed G. Therapeutic plan: We have decided to make therapeutic plan which would include choosing wisely on calories restricting portion getting active, tracking weight, getting good quality sleep and working on time management H. Patient will follow up in (4) weeks for weight management Of note, some information is being carried forward from prior records for informational purposes only and is being cited so that efficiency, safety and quality of the patient's care is not compromised This note was prepared using voice recognition software and direct typing Please excuse inadvertent psychologist social or typing errors, or uncorrected word substitutions Although every attempt has been made by the provider to proofread this document, occasional misspellings and typographical errors may still be present Due to the previous pandemic, and the use of personal protective equipment (PPE) This may decrease voice recognition accuracy Inadvertent psychologist social errors may occur 03/10/2023 Graves disease (ICD-10 - E05.00) As per HPI dc the sulfonylurea we have cut back her metformin by 50% to 750 mg extended release increase Mounjaro from 12.5 to 15 mg She is Thriving already doing very well on this regimen I will request and coordinate with fitness technician and primary care In office A1c 5.6 today 02/2023 Total time spent today was 30 minutes of which greater than 50% was spent on coordinating and counseling We are a board certified obesity and weight management practice Patient has trialed behavioral modification, dietary restrictions and exercise for a minimum of 6 months The most recent [place] [employer]ocrin[employer] and [place] [employer] guidelines recommend patients who [...] mentioned above and not solely appetite suppression. We have discussed the mechanism of GLP-1's/GIP, dual incretins, appetitite suppressants I think this would be fantastic option for her given her metabolic workup and body composition We have discussed the risks and benefits and side effects including/and not limited to Sarcopenia, intestinal obstruction, constipation, nausea, lethargy, headache Discussed importance of protein consumption for muscle maintenance as well as strength and resistance training ,probiotics, B12 complex biotin , iron and other nutrients, To help avoid telogen effluvium We have discussed the lifelong requirement of nutritional supplementation And adherence to an exercise regimen as well as importance of follow-up The patient understands and agrees There is no history of medullary thyroid cancer or multiple endocrine neoplasia There is also no history of cardiovascular disease, hypertension, palpitations, or arrhythmias In the setting of potential stimulant/amphetam ine use such as phentermine We have also discussed risks and benefits, and the use of compounded medications to help offset the national shortages as well as financial implications vs trade name drugs Patient has been found to be obese with a BMI of (). Patient has class () obesity. Patient was reassured and welcomed to the practice. We discussed that we stress a hollistic medical approach with emphasis on lifestyle modification. Patient was informed that a healthy lifestyle with exercise and good eating habits can help reduce his risk of medical complications. He is explained that obesity increases his risk of diabetes, cardiovascular disease, or organ damage. We spent a lot of time discussing the relationship between food, exercise, sleep, mental health and obesity. Patient was counseled on the importance EATING local, organic food when possible. Patient was educated on clean 15 and dirty dozen. I provided information about reading books called The Food Rules by Jose Elias Mo and Eat Fat Get Lean by Dr Christopher Rojas. Self education is important in the journey for weight management. Patient was offered diagnostic testing. We want to measure visceral adiposity, advanced body composition, adverse lipids, fatty acid balance, risk for heart disease and atherosclerosis, markers of inflammation and genetic susceptibility. Patient was counseled on weight management and was advised to lose weight using A. Meal Replacement Products We discussed the lifelong requirement of nutritional supplementation and adherence to an exercise regimen as well as importance of dietary follow-up Patient was educated on the replacement products called optifast. This is a good way of taking fixed amount of calories. It has been shown in studies to be ineffective weight management tool. We also recommend maintaining adequate protein intake and muscle composition, 1.5mg/kg This however has to be coupled with lifestyle intervention as well as laboratory data and EKG monitoring. It is impossible to know how a person will tolerate complete meal replacement. The side effects of meal replacement and weight loss could include syncopal attacks, dizziness, gallstones, potential cholecystectomy, possible heart attack and even . The benefits of meal replacement would be potential weight loss but no guarantees can be made. Meal replacement products are not covered by insurance. Once the patient has bought these products we cannot return them B. Lifestyle management which includes several strategies as below 1. Eat a low carbohydrate good fat good protein diet. Eliminate refined carbohydrates from the diet. Continue blood sugar and sugared beverages. Eat local organic when possible. Cook your own meals. Read food labels. None about healthy snacks. Portion control and food with low glycemic index 2. Exercise regularly. Try to get at least 6000 steps a day. Use a predominant to track activity level. Consider using apps like Imagistx, Drivypal, lose it, stick as needed for self-monitoring and weight management. Consider group exercises. Consider hiring a personal financial representative. Regular exercise is carvalho to sustainable health and prevents as a buffer against weight regain 3. Sleep is most important for healing. Tried to sleep at least 8 hours a night. A good quality sleep needs a sleep ritual with ideal room temperature of around 68. It might help to take a shower and have no electronics in the room and sleep in a very dark room without artificial light. Start her sleep routine and get up early in the morning and go to bed on time 4. Make a social connection. Surround yourself with positive people with positive energy. Connect with friends and family. 5. Get into the habit of meditating and mindfulness while doing everything. 6. Go outside and connect with nature. C. Prescription medications Patient was educated on the use of prescription medications for medical weight loss. This is a growing list and includes phentermine, Topamax,Qsymia, contrave, belviq and saxenda. All prescription medications could have side effects including but not limited to kidney stones, seizure disorder cardiac arrhythmias heart attack pancreatitis etc. etc.. Patient was encouraged to read the prescription insert and have coaching with their pharmacist and make an informed decision about taking medication and know that these medications are being prescribed with good intentions and we do not know how a patient would react to her medication. Sudden medications are FDA approved for weight loss and there is also off label use depending on patient's inability to afford medications in an attempt to lose weight D. Behavioral counseling was done to establish a relationship between food and an mood. Patient was provided information about local counseling and psychiatry and Dr Andres at [facility]. We would like to cover regular topics and build on low glycemic eating exercise mindful eating, using yoga and meditation along with deep breathing and connecting with friends and family. E. MASS PAT reviewed, Patient's current medications were reviewed and opinion was given on medication that can cause weight gain and can be substituted F. Patient was assessed for risk with obesity including and not limiting to atherosclerosis heart disease stroke kidney disease, restrictive lung disease, irritable bowel syndrome and overall mortality. Risk of developing prediabetes diabetes and metabolic syndrome was discussed G. Therapeutic plan: We have decided to make therapeutic plan which would include choosing wisely on calories restricting portion getting active, tracking weight, getting good quality sleep and working on time management H. Patient will follow up in (4) weeks for weight management Of note, some information is being carried forward from prior records for informational purposes only and is being cited so that efficiency, safety and quality of the patient's care is not compromised This note was prepared using voice recognition software and direct typing Please excuse inadvertent psychologist social or typing errors, or uncorrected word substitutions Although every attempt has been made by the provider to proofread this document, occasional misspellings and typographical errors may still be present Due to the previous pandemic, and the use of personal protective equipment (PPE) This may decrease voice recognition accuracy Inadvertent psychologist social errors may occur 05/08/2023 Graves disease (ICD-10 - E05.00) #Weight Management 05/08/2023 Glycemic control much improved on dual incretin therapy We discussed introducing Contrave for further appetite suppression and craving control She is currently not on any antidepressants Total time spent today was 30 minutes of which greater than 50% was spent on coordinating and counseling Patient has been found to be obese with a BMI of (51). Patient has class (3) obesity. We are a board certified obesity and weight management practice Patient has trialed behavioral modification, dietary restrictions and exercise for a minimum of 6 months The most recent [place] [employer] of clinical endocrinologists and [place] [employer] guidelines recommend patients who [...] mentioned above and not solely appetite suppression. We have discussed the mechanism of GLP-1's/GIP, dual incretins, appetitite suppressants I think this would be fantastic option for her given her metabolic workup and body composition We have discussed the risks and benefits and side effects including/and not limited to Sarcopenia, intestinal obstruction, constipation, nausea, lethargy, headache Discussed importance of protein consumption for muscle maintenance as well as strength and resistance training ,probiotics, B12 complex biotin , iron and other nutrients, To help avoid telogen effluvium We have discussed the lifelong requirement of nutritional supplementation And adherence to an exercise regimen as well as importance of follow-up The patient understands and agrees There is no history of medullary thyroid cancer or multiple endocrine neoplasia There is also no history of cardiovascular disease, hypertension, palpitations, or arrhythmias In the setting of potential stimulant/amphetam ine use such as phentermine We have also discussed risks and benefits, and the use of compounded medications to help offset the national shortages as well as financial implications vs trade name drugs Patient was reassured and welcomed to the practice. We discussed that we stress a hollistic medical approach with emphasis on lifestyle modification. Patient was informed that a healthy lifestyle with exercise and good eating habits can help reduce his risk of medical complications. He is explained that obesity increases his risk of diabetes, cardiovascular disease, or organ damage. We spent a lot of time discussing the relationship between food, exercise, sleep, mental health and obesity. Patient was counseled on the importance EATING local, organic food when possible. Patient was educated on clean 15 and dirty dozen. I provided information about reading books called The Food Rules by Jose Elias Mo and Eat Fat Get Lean by Dr Christopher Rojas. Self education is important in the journey for weight management. Patient was offered diagnostic testing. We want to measure visceral adiposity, advanced body composition, adverse lipids, fatty acid balance, risk for heart disease and atherosclerosis, markers of inflammation and genetic susceptibility. Patient was counseled on weight management and was advised to lose weight using A. Meal Replacement Products We discussed the lifelong requirement of nutritional supplementation and adherence to an exercise regimen as well as importance of dietary follow-up Patient was educated on the replacement products called optifast. This is a good way of taking fixed amount of calories. It has been shown in studies to be ineffective weight management tool. We also recommend maintaining adequate protein intake and muscle composition, 1.5mg/kg This however has to be coupled with lifestyle intervention as well as laboratory data and EKG monitoring. It is impossible to know how a person will tolerate complete meal replacement. The side effects of meal replacement and weight loss could include syncopal attacks, dizziness, gallstones, potential cholecystectomy, possible heart attack and even . The benefits of meal replacement would be potential weight loss but no guarantees can be made. Meal replacement products are not covered by insurance. Once the patient has bought these products we cannot return them B. Lifestyle management which includes several strategies as below 1. Eat a low carbohydrate good fat good protein diet. Eliminate refined carbohydrates from the diet. Continue blood sugar and sugared beverages. Eat local organic when possible. Cook your own meals. Read food labels. None about healthy snacks. Portion control and food with low glycemic index 2. Exercise regularly. Try to get at least 6000 steps a day. Use a predominant to track activity level. Consider using apps like Imagistx, Drivypal, lose it, stick as needed for self-monitoring and weight management. Consider group exercises. Consider hiring a personal financial representative. Regular exercise is carvalho to sustainable health and prevents as a buffer against weight regain 3. Sleep is most important for healing. Tried to sleep at least 8 hours a night. A good quality sleep needs a sleep ritual with ideal room temperature of around 68. It might help to take a shower and have no electronics in the room and sleep in a very dark room without artificial light. Start her sleep routine and get up early in the morning and go to bed on time 4. Make a social connection. Surround yourself with positive people with positive energy. Connect with friends and family. 5. Get into the habit of meditating and mindfulness while doing everything. 6. Go outside and connect with nature. C. Prescription medications Patient was educated on the use of prescription medications for medical weight loss. This is a growing list and includes phentermine, Topamax,Qsymia, contrave, belviq and saxenda. All prescription medications could have side effects including but not limited to kidney stones, seizure disorder cardiac arrhythmias heart attack pancreatitis etc. etc.. Patient was encouraged to read the prescription insert and have coaching with their pharmacist and make an informed decision about taking medication and know that these medications are being prescribed with good intentions and we do not know how a patient would react to her medication. Sudden medications are FDA approved for weight loss and there is also off label use depending on patient's inability to afford medications in an attempt to lose weight D. Behavioral counseling was done to establish a relationship between food and an mood. Patient was provided information about local counseling and psychiatry and Dr Andres at [facility]. We would like to cover regular topics and build on low glycemic eating exercise mindful eating, using yoga and meditation along with deep breathing and connecting with friends and family. E. MASS PAT reviewed, Patient's current medications were reviewed and opinion was given on medication that can cause weight gain and can be substituted F. Patient was assessed for risk with obesity including and not limiting to atherosclerosis heart disease stroke kidney disease, restrictive lung disease, irritable bowel syndrome and overall mortality. Risk of developing prediabetes diabetes and metabolic syndrome was discussed G. Therapeutic plan: We have decided to make therapeutic plan which would include choosing wisely on calories restricting portion getting active, tracking weight, getting good quality sleep and working on time management H. Patient will follow up in (4) weeks for weight management Of note, some information is being carried forward from prior records for informational purposes only and is being cited so that efficiency, safety and quality of the patient's care is not compromised This note was prepared using voice recognition software and direct typing Please excuse inadvertent psychologist social or typing errors, or uncorrected word substitutions Although every attempt has been made by the provider to proofread this document, occasional misspellings and typographical errors may still be present Due to the previous pandemic, and the use of personal protective equipment (PPE) This may decrease voice recognition accuracy Inadvertent psychologist social errors may occur 06/25/2023 Chronic anticoagulation (ICD-10 - Z79.01) #Weight Management 06/25/2023 thriving now qualifies for ortho surgery, R TKR Glycemic control much improved on dual incretin therapy cont Contrave for further appetite suppression and craving control She is currently not on any antidepressants Total time spent today was 30 minutes of which greater than 50% was spent on coordinating and counseling Patient has been found to be obese with a BMI of (47). Patient has class (3) obesity. We are a board certified obesity and weight management practice Patient has trialed behavioral modification, dietary restrictions and exercise for a minimum of 6 months The most recent [place] [employer]ocrin[employer] and [place] [employer] guidelines recommend patients who [...] mentioned above and not solely appetite suppression. We have discussed the mechanism of GLP-1's/GIP, dual incretins, appetitite suppressants I think this would be fantastic option for her given her metabolic workup and body composition We have discussed the risks and benefits and side effects including/and not limited to Sarcopenia, intestinal obstruction, constipation, nausea, lethargy, headache Discussed importance of protein consumption for muscle maintenance as well as strength and resistance training ,probiotics, B12 complex biotin , iron and other nutrients, To help avoid telogen effluvium We have discussed the lifelong requirement of nutritional supplementation And adherence to an exercise regimen as well as importance of follow-up The patient understands and agrees There is no history of medullary thyroid cancer or multiple endocrine neoplasia There is also no history of cardiovascular disease, hypertension, palpitations, or arrhythmias In the setting of potential stimulant/amphetam ine use such as phentermine We have also discussed risks and benefits, and the use of compounded medications to help offset the national shortages as well as financial implications vs trade name drugs Patient was reassured and welcomed to the practice. We discussed that we stress a hollistic medical approach with emphasis on lifestyle modification. Patient was informed that a healthy lifestyle with exercise and good eating habits can help reduce his risk of medical complications. He is explained that obesity increases his risk of diabetes, cardiovascular disease, or organ damage. We spent a lot of time discussing the relationship between food, exercise, sleep, mental health and obesity. Patient was counseled on the importance EATING local, organic food when possible. Patient was educated on clean 15 and dirty dozen. I provided information about reading books called The Food Rules by Jose Elias Mo and Eat Fat Get Lean by Dr Christopher Rojas. Self education is important in the journey for weight management. Patient was offered diagnostic testing. We want to measure visceral adiposity, advanced body composition, adverse lipids, fatty acid balance, risk for heart disease and atherosclerosis, markers of inflammation and genetic susceptibility. Patient was counseled on weight management and was advised to lose weight using A. Meal Replacement Products We discussed the lifelong requirement of nutritional supplementation and adherence to an exercise regimen as well as importance of dietary follow-up Patient was educated on the replacement products called optifast. This is a good way of taking fixed amount of calories. It has been shown in studies to be ineffective weight management tool. We also recommend maintaining adequate protein intake and muscle composition, 1.5mg/kg This however has to be coupled with lifestyle intervention as well as laboratory data and EKG monitoring. It is impossible to know how a person will tolerate complete meal replacement. The side effects of meal replacement and weight loss could include syncopal attacks, dizziness, gallstones, potential cholecystectomy, possible heart attack and even . The benefits of meal replacement would be potential weight loss but no guarantees can be made. Meal replacement products are not covered by insurance. Once the patient has bought these products we cannot return them B. Lifestyle management which includes several strategies as below 1. Eat a low carbohydrate good fat good protein diet. Eliminate refined carbohydrates from the diet. Continue blood sugar and sugared beverages. Eat local organic when possible. Cook your own meals. Read food labels. None about healthy snacks. Portion control and food with low glycemic index 2. Exercise regularly. Try to get at least 6000 steps a day. Use a predominant to track activity level. Consider using apps like Imagistx, Drivypal, lose it, stick as needed for self-monitoring and weight management. Consider group exercises. Consider hiring a personal financial representative. Regular exercise is carvalho to sustainable health and prevents as a buffer against weight regain 3. Sleep is most important for healing. Tried to sleep at least 8 hours a night. A good quality sleep needs a sleep ritual with ideal room temperature of around 68. It might help to take a shower and have no electronics in the room and sleep in a very dark room without artificial light. Start her sleep routine and get up early in the morning and go to bed on time 4. Make a social connection. Surround yourself with positive people with positive energy. Connect with friends and family. 5. Get into the habit of meditating and mindfulness while doing everything. 6. Go outside and connect with nature. C. Prescription medications Patient was educated on the use of prescription medications for medical weight loss. This is a growing list and includes phentermine, Topamax,Qsymia, contrave, belviq and saxenda. All prescription medications could have side effects including but not limited to kidney stones, seizure disorder cardiac arrhythmias heart attack pancreatitis etc. etc.. Patient was encouraged to read the prescription insert and have coaching with their pharmacist and make an informed decision about taking medication and know that these medications are being prescribed with good intentions and we do not know how a patient would react to her medication. Sudden medications are FDA approved for weight loss and there is also off label use depending on patient's inability to afford medications in an attempt to lose weight D. Behavioral counseling was done to establish a relationship between food and an mood. Patient was provided information about local counseling and psychiatry and Dr Andres at [facility]. We would like to cover regular topics and build on low glycemic eating exercise mindful eating, using yoga and meditation along with deep breathing and connecting with friends and family. E. MASS PAT reviewed, Patient's current medications were reviewed and opinion was given on medication that can cause weight gain and can be substituted F. Patient was assessed for risk with obesity including and not limiting to atherosclerosis heart disease stroke kidney disease, restrictive lung disease, irritable bowel syndrome and overall mortality. Risk of developing prediabetes diabetes and metabolic syndrome was discussed G. Therapeutic plan: We have decided to make therapeutic plan which would include choosing wisely on calories restricting portion getting active, tracking weight, getting good quality sleep and working on time management H. Patient will follow up in (4) weeks for weight management Of note, some information is being carried forward from prior records for informational purposes only and is being cited so that efficiency, safety and quality of the patient's care is not compromised This note was prepared using voice recognition software and direct typing Please excuse inadvertent psychologist social or typing errors, or uncorrected word substitutions Although every attempt has been made by the provider to proofread this document, occasional misspellings and typographical errors may still be present Due to the previous pandemic, and the use of personal protective equipment (PPE) This may decrease voice recognition accuracy Inadvertent psychologist social errors may occur 10/16/2023 Dietary counseling and surveillance (ICD-10 - Z71.3) #Weight Management 10/16/2023 Labs reviewed from [facility] September 2023 thriving Given ongoing weight loss this may be a recurrent problem until her weight stabilizes 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 fitness technician and rechecking labs every 4 weeks or [...] to be obese with a BMI of (45). Patient has class (3) obesity. We are a board certified obesity and weight management practice Patient has trialed behavioral modification, dietary restrictions and exercise for a minimum of 6 months The most recent [place] [employer] endocrinologists and [place] [employer] guidelines recommend patients who [...] mentioned above and not solely appetite suppression. We have discussed the mechanism of GLP-1's/GIP, dual incretins, appetitite suppressants I think this would be fantastic option for her given her metabolic workup and body composition We have discussed the risks and benefits and side effects including/and not limited to Sarcopenia, intestinal obstruction, constipation, nausea, lethargy, headache Discussed importance of protein consumption for muscle maintenance as well as strength and resistance training ,probiotics, B12 complex biotin , iron and other nutrients, To help avoid telogen effluvium We have discussed the lifelong requirement of nutritional supplementation And adherence to an exercise regimen as well as importance of follow-up The patient understands and agrees There is no history of medullary thyroid cancer or multiple endocrine neoplasia There is also no history of cardiovascular disease, hypertension, palpitations, or arrhythmias In the setting of potential stimulant/amphetam ine use such as phentermine We have also discussed risks and benefits, and the use of compounded medications to help offset the national shortages as well as financial implications vs trade name drugs Patient was reassured and welcomed to the practice. We discussed that we stress a hollistic medical approach with emphasis on lifestyle modification. Patient was informed that a healthy lifestyle with exercise and good eating habits can help reduce his risk of medical complications. He is explained that obesity increases his risk of diabetes, cardiovascular disease, or organ damage. We spent a lot of time discussing the relationship between food, exercise, sleep, mental health and obesity. Patient was counseled on the importance EATING local, organic food when possible. Patient was educated on clean 15 and dirty dozen. I provided information about reading books called The Food Rules by Jose Elias Mo and Eat Fat Get Lean by Dr Christopher Rojas. Self education is important in the journey for weight management. Patient was offered diagnostic testing. We want to measure visceral adiposity, advanced body composition, adverse lipids, fatty acid balance, risk for heart disease and atherosclerosis, markers of inflammation and genetic susceptibility. Patient was counseled on weight management and was advised to lose weight using A. Meal Replacement Products We discussed the lifelong requirement of nutritional supplementation and adherence to an exercise regimen as well as importance of dietary follow-up Patient was educated on the replacement products called optifast. This is a good way of taking fixed amount of calories. It has been shown in studies to be ineffective weight management tool. We also recommend maintaining adequate protein intake and muscle composition, 1.5mg/kg This however has to be coupled with lifestyle intervention as well as laboratory data and EKG monitoring. It is impossible to know how a person will tolerate complete meal replacement. The side effects of meal replacement and weight loss could include syncopal attacks, dizziness, gallstones, potential cholecystectomy, possible heart attack and even . The benefits of meal replacement would be potential weight loss but no guarantees can be made. Meal replacement products are not covered by insurance. Once the patient has bought these products we cannot return them B. Lifestyle management which includes several strategies as below 1. Eat a low carbohydrate good fat good protein diet. Eliminate refined carbohydrates from the diet. Continue blood sugar and sugared beverages. Eat local organic when possible. Cook your own meals. Read food labels. None about healthy snacks. Portion control and food with low glycemic index 2. Exercise regularly. Try to get at least 6000 steps a day. Use a predominant to track activity level. Consider using apps like Imagistx, Drivypal, lose it, stick as needed for self-monitoring and weight management. Consider group exercises. Consider hiring a personal financial representative. Regular exercise is carvalho to sustainable health and prevents as a buffer against weight regain 3. Sleep is most important for healing. Tried to sleep at least 8 hours a night. A good quality sleep needs a sleep ritual with ideal room temperature of around 68. It might help to take a shower and have no electronics in the room and sleep in a very dark room without artificial light. Start her sleep routine and get up early in the morning and go to bed on time 4. Make a social connection. Surround yourself with positive people with positive energy. Connect with friends and family. 5. Get into the habit of meditating and mindfulness while doing everything. 6. Go outside and connect with nature. C. Prescription medications Patient was educated on the use of prescription medications for medical weight loss. This is a growing list and includes phentermine, Topamax,Qsymia, contrave, belviq and saxenda. All prescription medications could have side effects including but not limited to kidney stones, seizure disorder cardiac arrhythmias heart attack pancreatitis etc. etc.. Patient was encouraged to read the prescription insert and have coaching with their pharmacist and make an informed decision about taking medication and know that these medications are being prescribed with good intentions and we do not know how a patient would react to her medication. Sudden medications are FDA approved for weight loss and there is also off label use depending on patient's inability to afford medications in an attempt to lose weight D. Behavioral counseling was done to establish a relationship between food and an mood. Patient was provided information about local counseling and psychiatry and Dr Andres at [facility]. We would like to cover regular topics and build on low glycemic eating exercise mindful eating, using yoga and meditation along with deep breathing and connecting with friends and family. E. MASS PAT reviewed, Patient's current medications were reviewed and opinion was given on medication that can cause weight gain and can be substituted F. Patient was assessed for risk with obesity including and not limiting to atherosclerosis heart disease stroke kidney disease, restrictive lung disease, irritable bowel syndrome and overall mortality. Risk of developing prediabetes diabetes and metabolic syndrome was discussed G. Therapeutic plan: We have decided to make therapeutic plan which would include choosing wisely on calories restricting portion getting active, tracking weight, getting good quality sleep and working on time management H. Patient will follow up in (4) weeks for weight management Of note, some information is being carried forward from prior records for informational purposes only and is being cited so that efficiency, safety and quality of the patient's care is not compromised This note was prepared using voice recognition software and direct typing Please excuse inadvertent psychologist social or typing errors, or uncorrected word substitutions Although every attempt has been made by the provider to proofread this document, occasional misspellings and typographical errors may still be present Due to the previous pandemic, and the use of personal protective equipment (PPE) This may decrease voice recognition accuracy Inadvertent psychologist social errors may occur 08/07/2023 Type 2 diabetes mellitus without complication, without long-term current use of insulin (ICD-10 - E11.9) #Weight Management 08/07/2023 thriving Thyroid function is very inconsistent and sporadic at the moment which can alter and hinder weight loss 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 fitness technician and rechecking labs every 4 weeks or [...] to be obese with a BMI of (47). Patient has class (3) obesity. We are a board certified obesity and weight management practice Patient has trialed behavioral modification, dietary restrictions and exercise for a minimum of 6 months The most recent [place] [employer] of clinical endocrinologists and [place] [employer] guidelines recommend patients who [...] mentioned above and not solely appetite suppression. We have discussed the mechanism of GLP-1's/GIP, dual incretins, appetitite suppressants I think this would be fantastic option for her given her metabolic workup and body composition We have discussed the risks and benefits and side effects including/and not limited to Sarcopenia, intestinal obstruction, constipation, nausea, lethargy, headache Discussed importance of protein consumption for muscle maintenance as well as strength and resistance training ,probiotics, B12 complex biotin , iron and other nutrients, To help avoid telogen effluvium We have discussed the lifelong requirement of nutritional supplementation And adherence to an exercise regimen as well as importance of follow-up The patient understands and agrees There is no history of medullary thyroid cancer or multiple endocrine neoplasia There is also no history of cardiovascular disease, hypertension, palpitations, or arrhythmias In the setting of potential stimulant/amphetam ine use such as phentermine We have also discussed risks and benefits, and the use of compounded medications to help offset the national shortages as well as financial implications vs trade name drugs Patient was reassured and welcomed to the practice. We discussed that we stress a hollistic medical approach with emphasis on lifestyle modification. Patient was informed that a healthy lifestyle with exercise and good eating habits can help reduce his risk of medical complications. He is explained that obesity increases his risk of diabetes, cardiovascular disease, or organ damage. We spent a lot of time discussing the relationship between food, exercise, sleep, mental health and obesity. Patient was counseled on the importance EATING local, organic food when possible. Patient was educated on clean 15 and dirty dozen. I provided information about reading books called The Food Rules by Jose Elias Mo and Eat Fat Get Lean by Dr Christopher Rojas. Self education is important in the journey for weight management. Patient was offered diagnostic testing. We want to measure visceral adiposity, advanced body composition, adverse lipids, fatty acid balance, risk for heart disease and atherosclerosis, markers of inflammation and genetic susceptibility. Patient was counseled on weight management and was advised to lose weight using A. Meal Replacement Products We discussed the lifelong requirement of nutritional supplementation and adherence to an exercise regimen as well as importance of dietary follow-up Patient was educated on the replacement products called optifast. This is a good way of taking fixed amount of calories. It has been shown in studies to be ineffective weight management tool. We also recommend maintaining adequate protein intake and muscle composition, 1.5mg/kg This however has to be coupled with lifestyle intervention as well as laboratory data and EKG monitoring. It is impossible to know how a person will tolerate complete meal replacement. The side effects of meal replacement and weight loss could include syncopal attacks, dizziness, gallstones, potential cholecystectomy, possible heart attack and even . The benefits of meal replacement would be potential weight loss but no guarantees can be made. Meal replacement products are not covered by insurance. Once the patient has bought these products we cannot return them B. Lifestyle management which includes several strategies as below 1. Eat a low carbohydrate good fat good protein diet. Eliminate refined carbohydrates from the diet. Continue blood sugar and sugared beverages. Eat local organic when possible. Cook your own meals. Read food labels. None about healthy snacks. Portion control and food with low glycemic index 2. Exercise regularly. Try to get at least 6000 steps a day. Use a predominant to track activity level. Consider using apps like Imagistx, Drivypal, lose it, stick as needed for self-monitoring and weight management. Consider group exercises. Consider hiring a personal financial representative. Regular exercise is carvalho to sustainable health and prevents as a buffer against weight regain 3. Sleep is most important for healing. Tried to sleep at least 8 hours a night. A good quality sleep needs a sleep ritual with ideal room temperature of around 68. It might help to take a shower and have no electronics in the room and sleep in a very dark room without artificial light. Start her sleep routine and get up early in the morning and go to bed on time 4. Make a social connection. Surround yourself with positive people with positive energy. Connect with friends and family. 5. Get into the habit of meditating and mindfulness while doing everything. 6. Go outside and connect with nature. C. Prescription medications Patient was educated on the use of prescription medications for medical weight loss. This is a growing list and includes phentermine, Topamax,Qsymia, contrave, belviq and saxenda. All prescription medications could have side effects including but not limited to kidney stones, seizure disorder cardiac arrhythmias heart attack pancreatitis etc. etc.. Patient was encouraged to read the prescription insert and have coaching with their pharmacist and make an informed decision about taking medication and know that these medications are being prescribed with good intentions and we do not know how a patient would react to her medication. Sudden medications are FDA approved for weight loss and there is also off label use depending on patient's inability to afford medications in an attempt to lose weight D. Behavioral counseling was done to establish a relationship between food and an mood. Patient was provided information about local counseling and psychiatry and Dr Andres at [facility]. We would like to cover regular topics and build on low glycemic eating exercise mindful eating, using yoga and meditation along with deep breathing and connecting with friends and family. E. MASS PAT reviewed, Patient's current medications were reviewed and opinion was given on medication that can cause weight gain and can be substituted F. Patient was assessed for risk with obesity including and not limiting to atherosclerosis heart disease stroke kidney disease, restrictive lung disease, irritable bowel syndrome and overall mortality. Risk of developing prediabetes diabetes and metabolic syndrome was discussed G. Therapeutic plan: We have decided to make therapeutic plan which would include choosing wisely on calories restricting portion getting active, tracking weight, getting good quality sleep and working on time management H. Patient will follow up in (4) weeks for weight management Of note, some information is being carried forward from prior records for informational purposes only and is being cited so that efficiency, safety and quality of the patient's care is not compromised This note was prepared using voice recognition software and direct typing Please excuse inadvertent psychologist social or typing errors, or uncorrected word substitutions Although every attempt has been made by the provider to proofread this document, occasional misspellings and typographical errors may still be present Due to the previous pandemic, and the use of personal protective equipment (PPE) This may decrease voice recognition accuracy Inadvertent psychologist social errors may occur 12/18/2023 Dietary counseling and surveillance (ICD-10 - Z71.3) #Weight Management 12/18/2023 Labs reviewed from [facility] September 2023 thriving Given ongoing weight loss this may be a recurrent problem until her weight stabilizes 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 fitness technician and rechecking labs every 4 weeks or [...] minimum of 6 months The most recent [place] [employer]ocrinologists and [place] [employer] guidelines recommend patients who [...] software and direct typing Please excuse inadvertent psychologist social or typing errors, or uncorrected word substitutions Although every attempt has been made by the provider to proofread this document, occasional misspellings and typographical errors may still be present Due to the previous pandemic, and the use of personal protective equipment (PPE) This may decrease voice recognition accuracy Inadvertent psychologist social errors may occur 10/16/2023 Type 2 diabetes mellitus without complication, without long-term current use of insulin (ICD-10 - E11.9) #Weight Management 10/16/2023 Labs reviewed from [facility] September 2023 thriving Given ongoing weight loss this may be a recurrent problem until her weight stabilizes 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 fitness technician and rechecking labs every 4 weeks or [...] to be obese with a BMI of (45). Patient has class (3) obesity. We are a board certified obesity and weight management practice Patient has trialed behavioral modification, dietary restrictions and exercise for a minimum of 6 months The most recent [place] [employer]ocrinologists and [employer] guidelines recommend patients who [...] mentioned above and not solely appetite suppression. We have discussed the mechanism of GLP-1's/GIP, dual incretins, appetitite suppressants I think this would be fantastic option for her given her metabolic workup and body composition We have discussed the risks and benefits and side effects including/and not limited to Sarcopenia, intestinal obstruction, constipation, nausea, lethargy, headache Discussed importance of protein consumption for muscle maintenance as well as strength and resistance training ,probiotics, B12 complex biotin , iron and other nutrients, To help avoid telogen effluvium We have discussed the lifelong requirement of nutritional supplementation And adherence to an exercise regimen as well as importance of follow-up The patient understands and agrees There is no history of medullary thyroid cancer or multiple endocrine neoplasia There is also no history of cardiovascular disease, hypertension, palpitations, or arrhythmias In the setting of potential stimulant/amphetam ine use such as phentermine We have also discussed risks and benefits, and the use of compounded medications to help offset the national shortages as well as financial implications vs trade name drugs Patient was reassured and welcomed to the practice. We discussed that we stress a hollistic medical approach with emphasis on lifestyle modification. Patient was informed that a healthy lifestyle with exercise and good eating habits can help reduce his risk of medical complications. He is explained that obesity increases his risk of diabetes, cardiovascular disease, or organ damage. We spent a lot of time discussing the relationship between food, exercise, sleep, mental health and obesity. Patient was counseled on the importance EATING local, organic food when possible. Patient was educated on clean 15 and dirty dozen. I provided information about reading books called The Food Rules by Jose Elias Mo and Eat Fat Get Lean by Dr Christopher Rojas. Self education is important in the journey for weight management. Patient was offered diagnostic testing. We want to measure visceral adiposity, advanced body composition, adverse lipids, fatty acid balance, risk for heart disease and atherosclerosis, markers of inflammation and genetic susceptibility. Patient was counseled on weight management and was advised to lose weight using A. Meal Replacement Products We discussed the lifelong requirement of nutritional supplementation and adherence to an exercise regimen as well as importance of dietary follow-up Patient was educated on the replacement products called optifast. This is a good way of taking fixed amount of calories. It has been shown in studies to be ineffective weight management tool. We also recommend maintaining adequate protein intake and muscle composition, 1.5mg/kg This however has to be coupled with lifestyle intervention as well as laboratory data and EKG monitoring. It is impossible to know how a person will tolerate complete meal replacement. The side effects of meal replacement and weight loss could include syncopal attacks, dizziness, gallstones, potential cholecystectomy, possible heart attack and even . The benefits of meal replacement would be potential weight loss but no guarantees can be made. Meal replacement products are not covered by insurance. Once the patient has bought these products we cannot return them B. Lifestyle management which includes several strategies as below 1. Eat a low carbohydrate good fat good protein diet. Eliminate refined carbohydrates from the diet. Continue blood sugar and sugared beverages. Eat local organic when possible. Cook your own meals. Read food labels. None about healthy snacks. Portion control and food with low glycemic index 2. Exercise regularly. Try to get at least 6000 steps a day. Use a predominant to track activity level. Consider using apps like Imagistx, Drivypal, lose it, stick as needed for self-monitoring and weight management. Consider group exercises. Consider hiring a personal financial representative. Regular exercise is carvalho to sustainable health and prevents as a buffer against weight regain 3. Sleep is most important for healing. Tried to sleep at least 8 hours a night. A good quality sleep needs a sleep ritual with ideal room temperature of around 68. It might help to take a shower and have no electronics in the room and sleep in a very dark room without artificial light. Start her sleep routine and get up early in the morning and go to bed on time 4. Make a social connection. Surround yourself with positive people with positive energy. Connect with friends and family. 5. Get into the habit of meditating and mindfulness while doing everything. 6. Go outside and connect with nature. C. Prescription medications Patient was educated on the use of prescription medications for medical weight loss. This is a growing list and includes phentermine, Topamax,Qsymia, contrave, belviq and saxenda. All prescription medications could have side effects including but not limited to kidney stones, seizure disorder cardiac arrhythmias heart attack pancreatitis etc. etc.. Patient was encouraged to read the prescription insert and have coaching with their pharmacist and make an informed decision about taking medication and know that these medications are being prescribed with good intentions and we do not know how a patient would react to her medication. Sudden medications are FDA approved for weight loss and there is also off label use depending on patient's inability to afford medications in an attempt to lose weight D. Behavioral counseling was done to establish a relationship between food and an mood. Patient was provided information about local counseling and psychiatry and Dr Andres at [facility]. We would like to cover regular topics and build on low glycemic eating exercise mindful eating, using yoga and meditation along with deep breathing and connecting with friends and family. E. MASS PAT reviewed, Patient's current medications were reviewed and opinion was given on medication that can cause weight gain and can be substituted F. Patient was assessed for risk with obesity including and not limiting to atherosclerosis heart disease stroke kidney disease, restrictive lung disease, irritable bowel syndrome and overall mortality. Risk of developing prediabetes diabetes and metabolic syndrome was discussed G. Therapeutic plan: We have decided to make therapeutic plan which would include choosing wisely on calories restricting portion getting active, tracking weight, getting good quality sleep and working on time management H. Patient will follow up in (4) weeks for weight management Of note, some information is being carried forward from prior records for informational purposes only and is being cited so that efficiency, safety and quality of the patient's care is not compromised This note was prepared using voice recognition software and direct typing Please excuse inadvertent psychologist social or typing errors, or uncorrected word substitutions Although every attempt has been made by the provider to proofread this document, occasional misspellings and typographical errors may still be present Due to the previous pandemic, and the use of personal protective equipment (PPE) This may decrease voice recognition accuracy Inadvertent psychologist social errors may occur 12/18/2023 Type 2 diabetes mellitus without complication, without long-term current use of insulin (ICD-10 - E11.9) #Weight Management 12/18/2023 Labs reviewed from [facility] September 2023 thriving Given ongoing weight loss this may be a recurrent problem until her weight stabilizes 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 fitness technician and rechecking labs every 4 weeks or [...] minimum of 6 months The most recent [place] [employer] of clinical endocrinologists and [employer] guidelines recommend patients who [...] software and direct typing Please excuse inadvertent psychologist social or typing errors, or uncorrected word substitutions Although every attempt has been made by the provider to proofread this document, occasional misspellings and typographical errors may still be present Due to the previous pandemic, and the use of personal protective equipment (PPE) This may decrease voice recognition accuracy Inadvertent psychologist social errors may occur 08/07/2023 Graves disease (ICD-10 - E05.00) #Weight Management 08/07/2023 thriving Thyroid function is very inconsistent and sporadic at the moment which can alter and hinder weight loss 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 fitness technician and rechecking labs every 4 weeks or [...] to be obese with a BMI of (47). Patient has class (3) obesity. We are a board certified obesity and weight management practice Patient has trialed behavioral modification, dietary restrictions and exercise for a minimum of 6 months The most recent [place] [employer] of [employer] endocrinologists and [employer] guidelines recommend patients who [...] mentioned above and not solely appetite suppression. We have discussed the mechanism of GLP-1's/GIP, dual incretins, appetitite suppressants I think this would be fantastic option for her given her metabolic workup and body composition We have discussed the risks and benefits and side effects including/and not limited to Sarcopenia, intestinal obstruction, constipation, nausea, lethargy, headache Discussed importance of protein consumption for muscle maintenance as well as strength and resistance training ,probiotics, B12 complex biotin , iron and other nutrients, To help avoid telogen effluvium We have discussed the lifelong requirement of nutritional supplementation And adherence to an exercise regimen as well as importance of follow-up The patient understands and agrees There is no history of medullary thyroid cancer or multiple endocrine neoplasia There is also no history of cardiovascular disease, hypertension, palpitations, or arrhythmias In the setting of potential stimulant/amphetam ine use such as phentermine We have also discussed risks and benefits, and the use of compounded medications to help offset the national shortages as well as financial implications vs trade name drugs Patient was reassured and welcomed to the practice. We discussed that we stress a hollistic medical approach with emphasis on lifestyle modification. Patient was informed that a healthy lifestyle with exercise and good eating habits can help reduce his risk of medical complications. He is explained that obesity increases his risk of diabetes, cardiovascular disease, or organ damage. We spent a lot of time discussing the relationship between food, exercise, sleep, mental health and obesity. Patient was counseled on the importance EATING local, organic food when possible. Patient was educated on clean 15 and dirty dozen. I provided information about reading books called The Food Rules by Jose Elias Mo and Eat Fat Get Lean by Dr Christopher Rojas. Self education is important in the journey for weight management. Patient was offered diagnostic testing. We want to measure visceral adiposity, advanced body composition, adverse lipids, fatty acid balance, risk for heart disease and atherosclerosis, markers of inflammation and genetic susceptibility. Patient was counseled on weight management and was advised to lose weight using A. Meal Replacement Products We discussed the lifelong requirement of nutritional supplementation and adherence to an exercise regimen as well as importance of dietary follow-up Patient was educated on the replacement products called optifast. This is a good way of taking fixed amount of calories. It has been shown in studies to be ineffective weight management tool. We also recommend maintaining adequate protein intake and muscle composition, 1.5mg/kg This however has to be coupled with lifestyle intervention as well as laboratory data and EKG monitoring. It is impossible to know how a person will tolerate complete meal replacement. The side effects of meal replacement and weight loss could include syncopal attacks, dizziness, gallstones, potential cholecystectomy, possible heart attack and even . The benefits of meal replacement would be potential weight loss but no guarantees can be made. Meal replacement products are not covered by insurance. Once the patient has bought these products we cannot return them B. Lifestyle management which includes several strategies as below 1. Eat a low carbohydrate good fat good protein diet. Eliminate refined carbohydrates from the diet. Continue blood sugar and sugared beverages. Eat local organic when possible. Cook your own meals. Read food labels. None about healthy snacks. Portion control and food with low glycemic index 2. Exercise regularly. Try to get at least 6000 steps a day. Use a predominant to track activity level. Consider using apps like Imagistx, Drivypal, lose it, stick as needed for self-monitoring and weight management. Consider group exercises. Consider hiring a personal financial representative. Regular exercise is carvalho to sustainable health and prevents as a buffer against weight regain 3. Sleep is most important for healing. Tried to sleep at least 8 hours a night. A good quality sleep needs a sleep ritual with ideal room temperature of around 68. It might help to take a shower and have no electronics in the room and sleep in a very dark room without artificial light. Start her sleep routine and get up early in the morning and go to bed on time 4. Make a social connection. Surround yourself with positive people with positive energy. Connect with friends and family. 5. Get into the habit of meditating and mindfulness while doing everything. 6. Go outside and connect with nature. C. Prescription medications Patient was educated on the use of prescription medications for medical weight loss. This is a growing list and includes phentermine, Topamax,Qsymia, contrave, belviq and saxenda. All prescription medications could have side effects including but not limited to kidney stones, seizure disorder cardiac arrhythmias heart attack pancreatitis etc. etc.. Patient was encouraged to read the prescription insert and have coaching with their pharmacist and make an informed decision about taking medication and know that these medications are being prescribed with good intentions and we do not know how a patient would react to her medication. Sudden medications are FDA approved for weight loss and there is also off label use depending on patient's inability to afford medications in an attempt to lose weight D. Behavioral counseling was done to establish a relationship between food and an mood. Patient was provided information about local counseling and psychiatry and Dr Andres at [facility]. We would like to cover regular topics and build on low glycemic eating exercise mindful eating, using yoga and meditation along with deep breathing and connecting with friends and family. E. MASS PAT reviewed, Patient's current medications were reviewed and opinion was given on medication that can cause weight gain and can be substituted F. Patient was assessed for risk with obesity including and not limiting to atherosclerosis heart disease stroke kidney disease, restrictive lung disease, irritable bowel syndrome and overall mortality. Risk of developing prediabetes diabetes and metabolic syndrome was discussed G. Therapeutic plan: We have decided to make therapeutic plan which would include choosing wisely on calories restricting portion getting active, tracking weight, getting good quality sleep and working on time management H. Patient will follow up in (4) weeks for weight management Of note, some information is being carried forward from prior records for informational purposes only and is being cited so that efficiency, safety and quality of the patient's care is not compromised This note was prepared using voice recognition software and direct typing Please excuse inadvertent psychologist social or typing errors, or uncorrected word substitutions Although every attempt has been made by the provider to proofread this document, occasional misspellings and typographical errors may still be present Due to the previous pandemic, and the use of personal protective equipment (PPE) This may decrease voice recognition accuracy Inadvertent psychologist social errors may occur 06/25/2023 PAF (paroxysmal atrial fibrillation) (ICD-10 - I48.0) #Weight Management 06/25/2023 thriving now qualifies for ortho surgery, R TKR Glycemic control much improved on dual incretin therapy cont Contrave for further appetite suppression and craving control She is currently not on any antidepressants Total time spent today was 30 minutes of which greater than 50% was spent on coordinating and counseling Patient has been found to be obese with a BMI of (47). Patient has class (3) obesity. We are a board certified obesity and weight management practice Patient has trialed behavioral modification, dietary restrictions and exercise for a minimum of 6 months The most recent [place] [employer] of clinical endocrinologists and [place] [employer] guidelines recommend patients who [...] mentioned above and not solely appetite suppression. We have discussed the mechanism of GLP-1's/GIP, dual incretins, appetitite suppressants I think this would be fantastic option for her given her metabolic workup and body composition We have discussed the risks and benefits and side effects including/and not limited to Sarcopenia, intestinal obstruction, constipation, nausea, lethargy, headache Discussed importance of protein consumption for muscle maintenance as well as strength and resistance training ,probiotics, B12 complex biotin , iron and other nutrients, To help avoid telogen effluvium We have discussed the lifelong requirement of nutritional supplementation And adherence to an exercise regimen as well as importance of follow-up The patient understands and agrees There is no history of medullary thyroid cancer or multiple endocrine neoplasia There is also no history of cardiovascular disease, hypertension, palpitations, or arrhythmias In the setting of potential stimulant/amphetam ine use such as phentermine We have also discussed risks and benefits, and the use of compounded medications to help offset the national shortages as well as financial implications vs trade name drugs Patient was reassured and welcomed to the practice. We discussed that we stress a hollistic medical approach with emphasis on lifestyle modification. Patient was informed that a healthy lifestyle with exercise and good eating habits can help reduce his risk of medical complications. He is explained that obesity increases his risk of diabetes, cardiovascular disease, or organ damage. We spent a lot of time discussing the relationship between food, exercise, sleep, mental health and obesity. Patient was counseled on the importance EATING local, organic food when possible. Patient was educated on clean 15 and dirty dozen. I provided information about reading books called The Food Rules by Jose Elias Mo and Eat Fat Get Lean by Dr Christopher Rojas. Self education is important in the journey for weight management. Patient was offered diagnostic testing. We want to measure visceral adiposity, advanced body composition, adverse lipids, fatty acid balance, risk for heart disease and atherosclerosis, markers of inflammation and genetic susceptibility. Patient was counseled on weight management and was advised to lose weight using A. Meal Replacement Products We discussed the lifelong requirement of nutritional supplementation and adherence to an exercise regimen as well as importance of dietary follow-up Patient was educated on the replacement products called optifast. This is a good way of taking fixed amount of calories. It has been shown in studies to be ineffective weight management tool. We also recommend maintaining adequate protein intake and muscle composition, 1.5mg/kg This however has to be coupled with lifestyle intervention as well as laboratory data and EKG monitoring. It is impossible to know how a person will tolerate complete meal replacement. The side effects of meal replacement and weight loss could include syncopal attacks, dizziness, gallstones, potential cholecystectomy, possible heart attack and even . The benefits of meal replacement would be potential weight loss but no guarantees can be made. Meal replacement products are not covered by insurance. Once the patient has bought these products we cannot return them B. Lifestyle management which includes several strategies as below 1. Eat a low carbohydrate good fat good protein diet. Eliminate refined carbohydrates from the diet. Continue blood sugar and sugared beverages. Eat local organic when possible. Cook your own meals. Read food labels. None about healthy snacks. Portion control and food with low glycemic index 2. Exercise regularly. Try to get at least 6000 steps a day. Use a predominant to track activity level. Consider using apps like Imagistx, Drivypal, lose it, stick as needed for self-monitoring and weight management. Consider group exercises. Consider hiring a personal financial representative. Regular exercise is carvalho to sustainable health and prevents as a buffer against weight regain 3. Sleep is most important for healing. Tried to sleep at least 8 hours a night. A good quality sleep needs a sleep ritual with ideal room temperature of around 68. It might help to take a shower and have no electronics in the room and sleep in a very dark room without artificial light. Start her sleep routine and get up early in the morning and go to bed on time 4. Make a social connection. Surround yourself with positive people with positive energy. Connect with friends and family. 5. Get into the habit of meditating and mindfulness while doing everything. 6. Go outside and connect with nature. C. Prescription medications Patient was educated on the use of prescription medications for medical weight loss. This is a growing list and includes phentermine, Topamax,Qsymia, contrave, belviq and saxenda. All prescription medications could have side effects including but not limited to kidney stones, seizure disorder cardiac arrhythmias heart attack pancreatitis etc. etc.. Patient was encouraged to read the prescription insert and have coaching with their pharmacist and make an informed decision about taking medication and know that these medications are being prescribed with good intentions and we do not know how a patient would react to her medication. Sudden medications are FDA approved for weight loss and there is also off label use depending on patient's inability to afford medications in an attempt to lose weight D. Behavioral counseling was done to establish a relationship between food and an mood. Patient was provided information about local counseling and psychiatry and Dr Andres at [facility]. We would like to cover regular topics and build on low glycemic eating exercise mindful eating, using yoga and meditation along with deep breathing and connecting with friends and family. E. MASS PAT reviewed, Patient's current medications were reviewed and opinion was given on medication that can cause weight gain and can be substituted F. Patient was assessed for risk with obesity including and not limiting to atherosclerosis heart disease stroke kidney disease, restrictive lung disease, irritable bowel syndrome and overall mortality. Risk of developing prediabetes diabetes and metabolic syndrome was discussed G. Therapeutic plan: We have decided to make therapeutic plan which would include choosing wisely on calories restricting portion getting active, tracking weight, getting good quality sleep and working on time management H. Patient will follow up in (4) weeks for weight management Of note, some information is being carried forward from prior records for informational purposes only and is being cited so that efficiency, safety and quality of the patient's care is not compromised This note was prepared using voice recognition software and direct typing Please excuse inadvertent psychologist social or typing errors, or uncorrected word substitutions Although every attempt has been made by the provider to proofread this document, occasional misspellings and typographical errors may still be present Due to the previous pandemic, and the use of personal protective equipment (PPE) This may decrease voice recognition accuracy Inadvertent psychologist social errors may occur 05/08/2023 Type 2 diabetes mellitus without complication, without long-term current use of insulin (ICD-10 - E11.9) #Weight Management 05/08/2023 Glycemic control much improved on dual incretin therapy We discussed introducing Contrave for further appetite suppression and craving control She is currently not on any antidepressants Total time spent today was 30 minutes of which greater than 50% was spent on coordinating and counseling Patient has been found to be obese with a BMI of (51). Patient has class (3) obesity. We are a board certified obesity and weight management practice Patient has trialed behavioral modification, dietary restrictions and exercise for a minimum of 6 months The most recent [place] [employer]ocrinologists and [place] [employer] guidelines recommend patients who [...] mentioned above and not solely appetite suppression. We have discussed the mechanism of GLP-1's/GIP, dual incretins, appetitite suppressants I think this would be fantastic option for her given her metabolic workup and body composition We have discussed the risks and benefits and side effects including/and not limited to Sarcopenia, intestinal obstruction, constipation, nausea, lethargy, headache Discussed importance of protein consumption for muscle maintenance as well as strength and resistance training ,probiotics, B12 complex biotin , iron and other nutrients, To help avoid telogen effluvium We have discussed the lifelong requirement of nutritional supplementation And adherence to an exercise regimen as well as importance of follow-up The patient understands and agrees There is no history of medullary thyroid cancer or multiple endocrine neoplasia There is also no history of cardiovascular disease, hypertension, palpitations, or arrhythmias In the setting of potential stimulant/amphetam ine use such as phentermine We have also discussed risks and benefits, and the use of compounded medications to help offset the national shortages as well as financial implications vs trade name drugs Patient was reassured and welcomed to the practice. We discussed that we stress a hollistic medical approach with emphasis on lifestyle modification. Patient was informed that a healthy lifestyle with exercise and good eating habits can help reduce his risk of medical complications. He is explained that obesity increases his risk of diabetes, cardiovascular disease, or organ damage. We spent a lot of time discussing the relationship between food, exercise, sleep, mental health and obesity. Patient was counseled on the importance EATING local, organic food when possible. Patient was educated on clean 15 and dirty dozen. I provided information about reading books called The Food Rules by Jose Elias Mo and Eat Fat Get Lean by Dr Christopher Rojas. Self education is important in the journey for weight management. Patient was offered diagnostic testing. We want to measure visceral adiposity, advanced body composition, adverse lipids, fatty acid balance, risk for heart disease and atherosclerosis, markers of inflammation and genetic susceptibility. Patient was counseled on weight management and was advised to lose weight using A. Meal Replacement Products We discussed the lifelong requirement of nutritional supplementation and adherence to an exercise regimen as well as importance of dietary follow-up Patient was educated on the replacement products called optifast. This is a good way of taking fixed amount of calories. It has been shown in studies to be ineffective weight management tool. We also recommend maintaining adequate protein intake and muscle composition, 1.5mg/kg This however has to be coupled with lifestyle intervention as well as laboratory data and EKG monitoring. It is impossible to know how a person will tolerate complete meal replacement. The side effects of meal replacement and weight loss could include syncopal attacks, dizziness, gallstones, potential cholecystectomy, possible heart attack and even . The benefits of meal replacement would be potential weight loss but no guarantees can be made. Meal replacement products are not covered by insurance. Once the patient has bought these products we cannot return them B. Lifestyle management which includes several strategies as below 1. Eat a low carbohydrate good fat good protein diet. Eliminate refined carbohydrates from the diet. Continue blood sugar and sugared beverages. Eat local organic when possible. Cook your own meals. Read food labels. None about healthy snacks. Portion control and food with low glycemic index 2. Exercise regularly. Try to get at least 6000 steps a day. Use a predominant to track activity level. Consider using apps like Imagistx, myfitnesspal, lose it, stick as needed for self-monitoring and weight management. Consider group exercises. Consider hiring a personal financial representative. Regular exercise is carvalho to sustainable health and prevents as a buffer against weight regain 3. Sleep is most important for healing. Tried to sleep at least 8 hours a night. A good quality sleep needs a sleep ritual with ideal room temperature of around 68. It might help to take a shower and have no electronics in the room and sleep in a very dark room without artificial light. Start her sleep routine and get up early in the morning and go to bed on time 4. Make a social connection. Surround yourself with positive people with positive energy. Connect with friends and family. 5. Get into the habit of meditating and mindfulness while doing everything. 6. Go outside and connect with nature. C. Prescription medications Patient was educated on the use of prescription medications for medical weight loss. This is a growing list and includes phentermine, Topamax,Qsymia, contrave, belviq and saxenda. All prescription medications could have side effects including but not limited to kidney stones, seizure disorder cardiac arrhythmias heart attack pancreatitis etc. etc.. Patient was encouraged to read the prescription insert and have coaching with their pharmacist and make an informed decision about taking medication and know that these medications are being prescribed with good intentions and we do not know how a patient would react to her medication. Sudden medications are FDA approved for weight loss and there is also off label use depending on patient's inability to afford medications in an attempt to lose weight D. Behavioral counseling was done to establish a relationship between food and an mood. Patient was provided information about local counseling and psychiatry and Dr Andres at [facility]. We would like to cover regular topics and build on low glycemic eating exercise mindful eating, using yoga and meditation along with deep breathing and connecting with friends and family. E. MASS PAT reviewed, Patient's current medications were reviewed and opinion was given on medication that can cause weight gain and can be substituted F. Patient was assessed for risk with obesity including and not limiting to atherosclerosis heart disease stroke kidney disease, restrictive lung disease, irritable bowel syndrome and overall mortality. Risk of developing prediabetes diabetes and metabolic syndrome was discussed G. Therapeutic plan: We have decided to make therapeutic plan which would include choosing wisely on calories restricting portion getting active, tracking weight, getting good quality sleep and working on time management H. Patient will follow up in (4) weeks for weight management Of note, some information is being carried forward from prior records for informational purposes only and is being cited so that efficiency, safety and quality of the patient's care is not compromised This note was prepared using voice recognition software and direct typing Please excuse inadvertent psychologist social or typing errors, or uncorrected word substitutions Although every attempt has been made by the provider to proofread this document, occasional misspellings and typographical errors may still be present Due to the previous pandemic, and the use of personal protective equipment (PPE) This may decrease voice recognition accuracy Inadvertent psychologist social errors may occur 03/10/2023 Type 2 diabetes mellitus without complication, without long-term current use of insulin (ICD-10 - E11.9) As per HPI dc the sulfonylurea we have cut back her metformin by 50% to 750 mg extended release increase Mounjaro from 12.5 to 15 mg She is Thriving already doing very well on this regimen I will request and coordinate with fitness technician and primary care In office A1c 5.6 today 02/2023 Total time spent today was 30 minutes of which greater than 50% was spent on coordinating and counseling We are a board certified obesity and weight management practice Patient has trialed behavioral modification, dietary restrictions and exercise for a minimum of 6 months The most recent [place] [employer] endocrinologists and [place] [employer] guidelines recommend patients who [...] mentioned above and not solely appetite suppression. We have discussed the mechanism of GLP-1's/GIP, dual incretins, appetitite suppressants I think this would be fantastic option for her given her metabolic workup and body composition We have discussed the risks and benefits and side effects including/and not limited to Sarcopenia, intestinal obstruction, constipation, nausea, lethargy, headache Discussed importance of protein consumption for muscle maintenance as well as strength and resistance training ,probiotics, B12 complex biotin , iron and other nutrients, To help avoid telogen effluvium We have discussed the lifelong requirement of nutritional supplementation And adherence to an exercise regimen as well as importance of follow-up The patient understands and agrees There is no history of medullary thyroid cancer or multiple endocrine neoplasia There is also no history of cardiovascular disease, hypertension, palpitations, or arrhythmias In the setting of potential stimulant/amphetam ine use such as phentermine We have also discussed risks and benefits, and the use of compounded medications to help offset the national shortages as well as financial implications vs trade name drugs Patient has been found to be obese with a BMI of (). Patient has class () obesity. Patient was reassured and welcomed to the practice. We discussed that we stress a hollistic medical approach with emphasis on lifestyle modification. Patient was informed that a healthy lifestyle with exercise and good eating habits can help reduce his risk of medical complications. He is explained that obesity increases his risk of diabetes, cardiovascular disease, or organ damage. We spent a lot of time discussing the relationship between food, exercise, sleep, mental health and obesity. Patient was counseled on the importance EATING local, organic food when possible. Patient was educated on clean 15 and dirty dozen. I provided information about reading books called The Food Rules by Jose Elias Mo and Eat Fat Get Lean by Dr Christopher Rojas. Self education is important in the journey for weight management. Patient was offered diagnostic testing. We want to measure visceral adiposity, advanced body composition, adverse lipids, fatty acid balance, risk for heart disease and atherosclerosis, markers of inflammation and genetic susceptibility. Patient was counseled on weight management and was advised to lose weight using A. Meal Replacement Products We discussed the lifelong requirement of nutritional supplementation and adherence to an exercise regimen as well as importance of dietary follow-up Patient was educated on the replacement products called optifast. This is a good way of taking fixed amount of calories. It has been shown in studies to be ineffective weight management tool. We also recommend maintaining adequate protein intake and muscle composition, 1.5mg/kg This however has to be coupled with lifestyle intervention as well as laboratory data and EKG monitoring. It is impossible to know how a person will tolerate complete meal replacement. The side effects of meal replacement and weight loss could include syncopal attacks, dizziness, gallstones, potential cholecystectomy, possible heart attack and even . The benefits of meal replacement would be potential weight loss but no guarantees can be made. Meal replacement products are not covered by insurance. Once the patient has bought these products we cannot return them B. Lifestyle management which includes several strategies as below 1. Eat a low carbohydrate good fat good protein diet. Eliminate refined carbohydrates from the diet. Continue blood sugar and sugared beverages. Eat local organic when possible. Cook your own meals. Read food labels. None about healthy snacks. Portion control and food with low glycemic index 2. Exercise regularly. Try to get at least 6000 steps a day. Use a predominant to track activity level. Consider using apps like Imagistx, myfitnesspal, lose it, stick as needed for self-monitoring and weight management. Consider group exercises. Consider hiring a personal financial representative. Regular exercise is carvalho to sustainable health and prevents as a buffer against weight regain 3. Sleep is most important for healing. Tried to sleep at least 8 hours a night. A good quality sleep needs a sleep ritual with ideal room temperature of around 68. It might help to take a shower and have no electronics in the room and sleep in a very dark room without artificial light. Start her sleep routine and get up early in the morning and go to bed on time 4. Make a social connection. Surround yourself with positive people with positive energy. Connect with friends and family. 5. Get into the habit of meditating and mindfulness while doing everything. 6. Go outside and connect with nature. C. Prescription medications Patient was educated on the use of prescription medications for medical weight loss. This is a growing list and includes phentermine, Topamax,Qsymia, contrave, belviq and saxenda. All prescription medications could have side effects including but not limited to kidney stones, seizure disorder cardiac arrhythmias heart attack pancreatitis etc. etc.. Patient was encouraged to read the prescription insert and have coaching with their pharmacist and make an informed decision about taking medication and know that these medications are being prescribed with good intentions and we do not know how a patient would react to her medication. Sudden medications are FDA approved for weight loss and there is also off label use depending on patient's inability to afford medications in an attempt to lose weight D. Behavioral counseling was done to establish a relationship between food and an mood. Patient was provided information about local counseling and psychiatry and Dr Andres at [facility]. We would like to cover regular topics and build on low glycemic eating exercise mindful eating, using yoga and meditation along with deep breathing and connecting with friends and family. E. MASS PAT reviewed, Patient's current medications were reviewed and opinion was given on medication that can cause weight gain and can be substituted F. Patient was assessed for risk with obesity including and not limiting to atherosclerosis heart disease stroke kidney disease, restrictive lung disease, irritable bowel syndrome and overall mortality. Risk of developing prediabetes diabetes and metabolic syndrome was discussed G. Therapeutic plan: We have decided to make therapeutic plan which would include choosing wisely on calories restricting portion getting active, tracking weight, getting good quality sleep and working on time management H. Patient will follow up in (4) weeks for weight management Of note, some information is being carried forward from prior records for informational purposes only and is being cited so that efficiency, safety and quality of the patient's care is not compromised This note was prepared using voice recognition software and direct typing Please excuse inadvertent psychologist social or typing errors, or uncorrected word substitutions Although every attempt has been made by the provider to proofread this document, occasional misspellings and typographical errors may still be present Due to the previous pandemic, and the use of personal protective equipment (PPE) This may decrease voice recognition accuracy Inadvertent psychologist social errors may occur 03/10/2023 Chronic anticoagulation (ICD-10 - Z79.01) As per HPI dc the sulfonylurea we have cut back her metformin by 50% to 750 mg extended release increase Mounjaro from 12.5 to 15 mg She is Thriving already doing very well on this regimen I will request and coordinate with fitness technician and primary care In office A1c 5.6 today 02/2023 Total time spent today was 30 minutes of which greater than 50% was spent on coordinating and counseling We are a board certified obesity and weight management practice Patient has trialed behavioral modification, dietary restrictions and exercise for a minimum of 6 months The most recent [place] [employer] clinical endocrinologists and [place] [employer] guidelines recommend patients who [...] mentioned above and not solely appetite suppression. We have discussed the mechanism of GLP-1's/GIP, dual incretins, appetitite suppressants I think this would be fantastic option for her given her metabolic workup and body composition We have discussed the risks and benefits and side effects including/and not limited to Sarcopenia, intestinal obstruction, constipation, nausea, lethargy, headache Discussed importance of protein consumption for muscle maintenance as well as strength and resistance training ,probiotics, B12 complex biotin , iron and other nutrients, To help avoid telogen effluvium We have discussed the lifelong requirement of nutritional supplementation And adherence to an exercise regimen as well as importance of follow-up The patient understands and agrees There is no history of medullary thyroid cancer or multiple endocrine neoplasia There is also no history of cardiovascular disease, hypertension, palpitations, or arrhythmias In the setting of potential stimulant/amphetam ine use such as phentermine We have also discussed risks and benefits, and the use of compounded medications to help offset the national shortages as well as financial implications vs trade name drugs Patient has been found to be obese with a BMI of (). Patient has class () obesity. Patient was reassured and welcomed to the practice. We discussed that we stress a hollistic medical approach with emphasis on lifestyle modification. Patient was informed that a healthy lifestyle with exercise and good eating habits can help reduce his risk of medical complications. He is explained that obesity increases his risk of diabetes, cardiovascular disease, or organ damage. We spent a lot of time discussing the relationship between food, exercise, sleep, mental health and obesity. Patient was counseled on the importance EATING local, organic food when possible. Patient was educated on clean 15 and dirty dozen. I provided information about reading books called The Food Rules by Jose Elias Mo and Eat Fat Get Lean by Dr Christopher Rojas. Self education is important in the journey for weight management. Patient was offered diagnostic testing. We want to measure visceral adiposity, advanced body composition, adverse lipids, fatty acid balance, risk for heart disease and atherosclerosis, markers of inflammation and genetic susceptibility. Patient was counseled on weight management and was advised to lose weight using A. Meal Replacement Products We discussed the lifelong requirement of nutritional supplementation and adherence to an exercise regimen as well as importance of dietary follow-up Patient was educated on the replacement products called optifast. This is a good way of taking fixed amount of calories. It has been shown in studies to be ineffective weight management tool. We also recommend maintaining adequate protein intake and muscle composition, 1.5mg/kg This however has to be coupled with lifestyle intervention as well as laboratory data and EKG monitoring. It is impossible to know how a person will tolerate complete meal replacement. The side effects of meal replacement and weight loss could include syncopal attacks, dizziness, gallstones, potential cholecystectomy, possible heart attack and even . The benefits of meal replacement would be potential weight loss but no guarantees can be made. Meal replacement products are not covered by insurance. Once the patient has bought these products we cannot return them B. Lifestyle management which includes several strategies as below 1. Eat a low carbohydrate good fat good protein diet. Eliminate refined carbohydrates from the diet. Continue blood sugar and sugared beverages. Eat local organic when possible. Cook your own meals. Read food labels. None about healthy snacks. Portion control and food with low glycemic index 2. Exercise regularly. Try to get at least 6000 steps a day. Use a predominant to track activity level. Consider using apps like Imagistx, Drivypal, lose it, stick as needed for self-monitoring and weight management. Consider group exercises. Consider hiring a personal financial representative. Regular exercise is carvalho to sustainable health and prevents as a buffer against weight regain 3. Sleep is most important for healing. Tried to sleep at least 8 hours a night. A good quality sleep needs a sleep ritual with ideal room temperature of around 68. It might help to take a shower and have no electronics in the room and sleep in a very dark room without artificial light. Start her sleep routine and get up early in the morning and go to bed on time 4. Make a social connection. Surround yourself with positive people with positive energy. Connect with friends and family. 5. Get into the habit of meditating and mindfulness while doing everything. 6. Go outside and connect with nature. C. Prescription medications Patient was educated on the use of prescription medications for medical weight loss. This is a growing list and includes phentermine, Topamax,Qsymia, contrave, belviq and saxenda. All prescription medications could have side effects including but not limited to kidney stones, seizure disorder cardiac arrhythmias heart attack pancreatitis etc. etc.. Patient was encouraged to read the prescription insert and have coaching with their pharmacist and make an informed decision about taking medication and know that these medications are being prescribed with good intentions and we do not know how a patient would react to her medication. Sudden medications are FDA approved for weight loss and there is also off label use depending on patient's inability to afford medications in an attempt to lose weight D. Behavioral counseling was done to establish a relationship between food and an mood. Patient was provided information about local counseling and psychiatry and Dr Andres at [facility]. We would like to cover regular topics and build on low glycemic eating exercise mindful eating, using yoga and meditation along with deep breathing and connecting with friends and family. E. MASS PAT reviewed, Patient's current medications were reviewed and opinion was given on medication that can cause weight gain and can be substituted F. Patient was assessed for risk with obesity including and not limiting to atherosclerosis heart disease stroke kidney disease, restrictive lung disease, irritable bowel syndrome and overall mortality. Risk of developing prediabetes diabetes and metabolic syndrome was discussed G. Therapeutic plan: We have decided to make therapeutic plan which would include choosing wisely on calories restricting portion getting active, tracking weight, getting good quality sleep and working on time management H. Patient will follow up in (4) weeks for weight management Of note, some information is being carried forward from prior records for informational purposes only and is being cited so that efficiency, safety and quality of the patient's care is not compromised This note was prepared using voice recognition software and direct typing Please excuse inadvertent psychologist social or typing errors, or uncorrected word substitutions Although every attempt has been made by the provider to proofread this document, occasional misspellings and typographical errors may still be present Due to the previous pandemic, and the use of personal protective equipment (PPE) This may decrease voice recognition accuracy Inadvertent psychologist social errors may occur 05/08/2023 Chronic anticoagulation (ICD-10 - Z79.01) #Weight Management 05/08/2023 Glycemic control much improved on dual incretin therapy We discussed introducing Contrave for further appetite suppression and craving control She is currently not on any antidepressants Total time spent today was 30 minutes of which greater than 50% was spent on coordinating and counseling Patient has been found to be obese with a BMI of (51). Patient has class (3) obesity. We are a board certified obesity and weight management practice Patient has trialed behavioral modification, dietary restrictions and exercise for a minimum of 6 months The most recent [place] [employer]ocrin[employer] and [place] [employer] guidelines recommend patients who [...] mentioned above and not solely appetite suppression. We have discussed the mechanism of GLP-1's/GIP, dual incretins, appetitite suppressants I think this would be fantastic option for her given her metabolic workup and body composition We have discussed the risks and benefits and side effects including/and not limited to Sarcopenia, intestinal obstruction, constipation, nausea, lethargy, headache Discussed importance of protein consumption for muscle maintenance as well as strength and resistance training ,probiotics, B12 complex biotin , iron and other nutrients, To help avoid telogen effluvium We have discussed the lifelong requirement of nutritional supplementation And adherence to an exercise regimen as well as importance of follow-up The patient understands and agrees There is no history of medullary thyroid cancer or multiple endocrine neoplasia There is also no history of cardiovascular disease, hypertension, palpitations, or arrhythmias In the setting of potential stimulant/amphetam ine use such as phentermine We have also discussed risks and benefits, and the use of compounded medications to help offset the national shortages as well as financial implications vs trade name drugs Patient was reassured and welcomed to the practice. We discussed that we stress a hollistic medical approach with emphasis on lifestyle modification. Patient was informed that a healthy lifestyle with exercise and good eating habits can help reduce his risk of medical complications. He is explained that obesity increases his risk of diabetes, cardiovascular disease, or organ damage. We spent a lot of time discussing the relationship between food, exercise, sleep, mental health and obesity. Patient was counseled on the importance EATING local, organic food when possible. Patient was educated on clean 15 and dirty dozen. I provided information about reading books called The Food Rules by Jose Elias Mo and Eat Fat Get Lean by Dr Christopher Rojas. Self education is important in the journey for weight management. Patient was offered diagnostic testing. We want to measure visceral adiposity, advanced body composition, adverse lipids, fatty acid balance, risk for heart disease and atherosclerosis, markers of inflammation and genetic susceptibility. Patient was counseled on weight management and was advised to lose weight using A. Meal Replacement Products We discussed the lifelong requirement of nutritional supplementation and adherence to an exercise regimen as well as importance of dietary follow-up Patient was educated on the replacement products called optifast. This is a good way of taking fixed amount of calories. It has been shown in studies to be ineffective weight management tool. We also recommend maintaining adequate protein intake and muscle composition, 1.5mg/kg This however has to be coupled with lifestyle intervention as well as laboratory data and EKG monitoring. It is impossible to know how a person will tolerate complete meal replacement. The side effects of meal replacement and weight loss could include syncopal attacks, dizziness, gallstones, potential cholecystectomy, possible heart attack and even . The benefits of meal replacement would be potential weight loss but no guarantees can be made. Meal replacement products are not covered by insurance. Once the patient has bought these products we cannot return them B. Lifestyle management which includes several strategies as below 1. Eat a low carbohydrate good fat good protein diet. Eliminate refined carbohydrates from the diet. Continue blood sugar and sugared beverages. Eat local organic when possible. Cook your own meals. Read food labels. None about healthy snacks. Portion control and food with low glycemic index 2. Exercise regularly. Try to get at least 6000 steps a day. Use a predominant to track activity level. Consider using apps like Imagistx, Drivypal, lose it, stick as needed for self-monitoring and weight management. Consider group exercises. Consider hiring a personal financial representative. Regular exercise is carvalho to sustainable health and prevents as a buffer against weight regain 3. Sleep is most important for healing. Tried to sleep at least 8 hours a night. A good quality sleep needs a sleep ritual with ideal room temperature of around 68. It might help to take a shower and have no electronics in the room and sleep in a very dark room without artificial light. Start her sleep routine and get up early in the morning and go to bed on time 4. Make a social connection. Surround yourself with positive people with positive energy. Connect with friends and family. 5. Get into the habit of meditating and mindfulness while doing everything. 6. Go outside and connect with nature. C. Prescription medications Patient was educated on the use of prescription medications for medical weight loss. This is a growing list and includes phentermine, Topamax,Qsymia, contrave, belviq and saxenda. All prescription medications could have side effects including but not limited to kidney stones, seizure disorder cardiac arrhythmias heart attack pancreatitis etc. etc.. Patient was encouraged to read the prescription insert and have coaching with their pharmacist and make an informed decision about taking medication and know that these medications are being prescribed with good intentions and we do not know how a patient would react to her medication. Sudden medications are FDA approved for weight loss and there is also off label use depending on patient's inability to afford medications in an attempt to lose weight D. Behavioral counseling was done to establish a relationship between food and an mood. Patient was provided information about local counseling and psychiatry and Dr Andres at [facility]. We would like to cover regular topics and build on low glycemic eating exercise mindful eating, using yoga and meditation along with deep breathing and connecting with friends and family. E. MASS PAT reviewed, Patient's current medications were reviewed and opinion was given on medication that can cause weight gain and can be substituted F. Patient was assessed for risk with obesity including and not limiting to atherosclerosis heart disease stroke kidney disease, restrictive lung disease, irritable bowel syndrome and overall mortality. Risk of developing prediabetes diabetes and metabolic syndrome was discussed G. Therapeutic plan: We have decided to make therapeutic plan which would include choosing wisely on calories restricting portion getting active, tracking weight, getting good quality sleep and working on time management H. Patient will follow up in (4) weeks for weight management Of note, some information is being carried forward from prior records for informational purposes only and is being cited so that efficiency, safety and quality of the patient's care is not compromised This note was prepared using voice recognition software and direct typing Please excuse inadvertent psychologist social or typing errors, or uncorrected word substitutions Although every attempt has been made by the provider to proofread this document, occasional misspellings and typographical errors may still be present Due to the previous pandemic, and the use of personal protective equipment (PPE) This may decrease voice recognition accuracy Inadvertent psychologist social errors may occur 06/25/2023 NICHOLE (obstructive sleep apnea) (ICD-10 - G47.33) #Weight Management 06/25/2023 thriving now qualifies for ortho surgery, R TKR Glycemic control much improved on dual incretin therapy cont Contrave for further appetite suppression and craving control She is currently not on any antidepressants Total time spent today was 30 minutes of which greater than 50% was spent on coordinating and counseling Patient has been found to be obese with a BMI of (47). Patient has class (3) obesity. We are a board certified obesity and weight management practice Patient has trialed behavioral modification, dietary restrictions and exercise for a minimum of 6 months The most recent [place] [employer] endocrinologists and [place] [employer] guidelines recommend patients who [...] mentioned above and not solely appetite suppression. We have discussed the mechanism of GLP-1's/GIP, dual incretins, appetitite suppressants I think this would be fantastic option for her given her metabolic workup and body composition We have discussed the risks and benefits and side effects including/and not limited to Sarcopenia, intestinal obstruction, constipation, nausea, lethargy, headache Discussed importance of protein consumption for muscle maintenance as well as strength and resistance training ,probiotics, B12 complex biotin , iron and other nutrients, To help avoid telogen effluvium We have discussed the lifelong requirement of nutritional supplementation And adherence to an exercise regimen as well as importance of follow-up The patient understands and agrees There is no history of medullary thyroid cancer or multiple endocrine neoplasia There is also no history of cardiovascular disease, hypertension, palpitations, or arrhythmias In the setting of potential stimulant/amphetam ine use such as phentermine We have also discussed risks and benefits, and the use of compounded medications to help offset the national shortages as well as financial implications vs trade name drugs Patient was reassured and welcomed to the practice. We discussed that we stress a hollistic medical approach with emphasis on lifestyle modification. Patient was informed that a healthy lifestyle with exercise and good eating habits can help reduce his risk of medical complications. He is explained that obesity increases his risk of diabetes, cardiovascular disease, or organ damage. We spent a lot of time discussing the relationship between food, exercise, sleep, mental health and obesity. Patient was counseled on the importance EATING local, organic food when possible. Patient was educated on clean 15 and dirty dozen. I provided information about reading books called The Food Rules by Jose Elias Mo and Eat Fat Get Lean by Dr Christopher Rojas. Self education is important in the journey for weight management. Patient was offered diagnostic testing. We want to measure visceral adiposity, advanced body composition, adverse lipids, fatty acid balance, risk for heart disease and atherosclerosis, markers of inflammation and genetic susceptibility. Patient was counseled on weight management and was advised to lose weight using A. Meal Replacement Products We discussed the lifelong requirement of nutritional supplementation and adherence to an exercise regimen as well as importance of dietary follow-up Patient was educated on the replacement products called optifast. This is a good way of taking fixed amount of calories. It has been shown in studies to be ineffective weight management tool. We also recommend maintaining adequate protein intake and muscle composition, 1.5mg/kg This however has to be coupled with lifestyle intervention as well as laboratory data and EKG monitoring. It is impossible to know how a person will tolerate complete meal replacement. The side effects of meal replacement and weight loss could include syncopal attacks, dizziness, gallstones, potential cholecystectomy, possible heart attack and even . The benefits of meal replacement would be potential weight loss but no guarantees can be made. Meal replacement products are not covered by insurance. Once the patient has bought these products we cannot return them B. Lifestyle management which includes several strategies as below 1. Eat a low carbohydrate good fat good protein diet. Eliminate refined carbohydrates from the diet. Continue blood sugar and sugared beverages. Eat local organic when possible. Cook your own meals. Read food labels. None about healthy snacks. Portion control and food with low glycemic index 2. Exercise regularly. Try to get at least 6000 steps a day. Use a predominant to track activity level. Consider using apps like Imagistx, Drivypal, lose it, stick as needed for self-monitoring and weight management. Consider group exercises. Consider hiring a personal financial representative. Regular exercise is carvalho to sustainable health and prevents as a buffer against weight regain 3. Sleep is most important for healing. Tried to sleep at least 8 hours a night. A good quality sleep needs a sleep ritual with ideal room temperature of around 68. It might help to take a shower and have no electronics in the room and sleep in a very dark room without artificial light. Start her sleep routine and get up early in the morning and go to bed on time 4. Make a social connection. Surround yourself with positive people with positive energy. Connect with friends and family. 5. Get into the habit of meditating and mindfulness while doing everything. 6. Go outside and connect with nature. C. Prescription medications Patient was educated on the use of prescription medications for medical weight loss. This is a growing list and includes phentermine, Topamax,Qsymia, contrave, belviq and saxenda. All prescription medications could have side effects including but not limited to kidney stones, seizure disorder cardiac arrhythmias heart attack pancreatitis etc. etc.. Patient was encouraged to read the prescription insert and have coaching with their pharmacist and make an informed decision about taking medication and know that these medications are being prescribed with good intentions and we do not know how a patient would react to her medication. Sudden medications are FDA approved for weight loss and there is also off label use depending on patient's inability to afford medications in an attempt to lose weight D. Behavioral counseling was done to establish a relationship between food and an mood. Patient was provided information about local counseling and psychiatry and Dr Andres at [facility]. We would like to cover regular topics and build on low glycemic eating exercise mindful eating, using yoga and meditation along with deep breathing and connecting with friends and family. E. MASS PAT reviewed, Patient's current medications were reviewed and opinion was given on medication that can cause weight gain and can be substituted F. Patient was assessed for risk with obesity including and not limiting to atherosclerosis heart disease stroke kidney disease, restrictive lung disease, irritable bowel syndrome and overall mortality. Risk of developing prediabetes diabetes and metabolic syndrome was discussed G. Therapeutic plan: We have decided to make therapeutic plan which would include choosing wisely on calories restricting portion getting active, tracking weight, getting good quality sleep and working on time management H. Patient will follow up in (4) weeks for weight management Of note, some information is being carried forward from prior records for informational purposes only and is being cited so that efficiency, safety and quality of the patient's care is not compromised This note was prepared using voice recognition software and direct typing Please excuse inadvertent psychologist social or typing errors, or uncorrected word substitutions Although every attempt has been made by the provider to proofread this document, occasional misspellings and typographical errors may still be present Due to the previous pandemic, and the use of personal protective equipment (PPE) This may decrease voice recognition accuracy Inadvertent psychologist social errors may occur 08/07/2023 Chronic anticoagulation (ICD-10 - Z79.01) #Weight Management 08/07/2023 thriving Thyroid function is very inconsistent and sporadic at the moment which can alter and hinder weight loss 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 fitness technician and rechecking labs every 4 weeks or [...] to be obese with a BMI of (47). Patient has class (3) obesity. We are a board certified obesity and weight management practice Patient has trialed behavioral modification, dietary restrictions and exercise for a minimum of 6 months The most recent [place] [employer] of clinical endocrinologists and [place] [employer] guidelines recommend patients who [...] mentioned above and not solely appetite suppression. We have discussed the mechanism of GLP-1's/GIP, dual incretins, appetitite suppressants I think this would be fantastic option for her given her metabolic workup and body composition We have discussed the risks and benefits and side effects including/and not limited to Sarcopenia, intestinal obstruction, constipation, nausea, lethargy, headache Discussed importance of protein consumption for muscle maintenance as well as strength and resistance training ,probiotics, B12 complex biotin , iron and other nutrients, To help avoid telogen effluvium We have discussed the lifelong requirement of nutritional supplementation And adherence to an exercise regimen as well as importance of follow-up The patient understands and agrees There is no history of medullary thyroid cancer or multiple endocrine neoplasia There is also no history of cardiovascular disease, hypertension, palpitations, or arrhythmias In the setting of potential stimulant/amphetam ine use such as phentermine We have also discussed risks and benefits, and the use of compounded medications to help offset the national shortages as well as financial implications vs trade name drugs Patient was reassured and welcomed to the practice. We discussed that we stress a hollistic medical approach with emphasis on lifestyle modification. Patient was informed that a healthy lifestyle with exercise and good eating habits can help reduce his risk of medical complications. He is explained that obesity increases his risk of diabetes, cardiovascular disease, or organ damage. We spent a lot of time discussing the relationship between food, exercise, sleep, mental health and obesity. Patient was counseled on the importance EATING local, organic food when possible. Patient was educated on clean 15 and dirty dozen. I provided information about reading books called The Food Rules by Jose Elias Mo and Eat Fat Get Lean by Dr Christopher Rojas. Self education is important in the journey for weight management. Patient was offered diagnostic testing. We want to measure visceral adiposity, advanced body composition, adverse lipids, fatty acid balance, risk for heart disease and atherosclerosis, markers of inflammation and genetic susceptibility. Patient was counseled on weight management and was advised to lose weight using A. Meal Replacement Products We discussed the lifelong requirement of nutritional supplementation and adherence to an exercise regimen as well as importance of dietary follow-up Patient was educated on the replacement products called optifast. This is a good way of taking fixed amount of calories. It has been shown in studies to be ineffective weight management tool. We also recommend maintaining adequate protein intake and muscle composition, 1.5mg/kg This however has to be coupled with lifestyle intervention as well as laboratory data and EKG monitoring. It is impossible to know how a person will tolerate complete meal replacement. The side effects of meal replacement and weight loss could include syncopal attacks, dizziness, gallstones, potential cholecystectomy, possible heart attack and even . The benefits of meal replacement would be potential weight loss but no guarantees can be made. Meal replacement products are not covered by insurance. Once the patient has bought these products we cannot return them B. Lifestyle management which includes several strategies as below 1. Eat a low carbohydrate good fat good protein diet. Eliminate refined carbohydrates from the diet. Continue blood sugar and sugared beverages. Eat local organic when possible. Cook your own meals. Read food labels. None about healthy snacks. Portion control and food with low glycemic index 2. Exercise regularly. Try to get at least 6000 steps a day. Use a predominant to track activity level. Consider using apps like Imagistx, Drivypal, lose it, stick as needed for self-monitoring and weight management. Consider group exercises. Consider hiring a personal financial representative. Regular exercise is carvalho to sustainable health and prevents as a buffer against weight regain 3. Sleep is most important for healing. Tried to sleep at least 8 hours a night. A good quality sleep needs a sleep ritual with ideal room temperature of around 68. It might help to take a shower and have no electronics in the room and sleep in a very dark room without artificial light. Start her sleep routine and get up early in the morning and go to bed on time 4. Make a social connection. Surround yourself with positive people with positive energy. Connect with friends and family. 5. Get into the habit of meditating and mindfulness while doing everything. 6. Go outside and connect with nature. C. Prescription medications Patient was educated on the use of prescription medications for medical weight loss. This is a growing list and includes phentermine, Topamax,Qsymia, contrave, belviq and saxenda. All prescription medications could have side effects including but not limited to kidney stones, seizure disorder cardiac arrhythmias heart attack pancreatitis etc. etc.. Patient was encouraged to read the prescription insert and have coaching with their pharmacist and make an informed decision about taking medication and know that these medications are being prescribed with good intentions and we do not know how a patient would react to her medication. Sudden medications are FDA approved for weight loss and there is also off label use depending on patient's inability to afford medications in an attempt to lose weight D. Behavioral counseling was done to establish a relationship between food and an mood. Patient was provided information about local counseling and psychiatry and Dr Andres at [facility]. We would like to cover regular topics and build on low glycemic eating exercise mindful eating, using yoga and meditation along with deep breathing and connecting with friends and family. E. MASS PAT reviewed, Patient's current medications were reviewed and opinion was given on medication that can cause weight gain and can be substituted F. Patient was assessed for risk with obesity including and not limiting to atherosclerosis heart disease stroke kidney disease, restrictive lung disease, irritable bowel syndrome and overall mortality. Risk of developing prediabetes diabetes and metabolic syndrome was discussed G. Therapeutic plan: We have decided to make therapeutic plan which would include choosing wisely on calories restricting portion getting active, tracking weight, getting good quality sleep and working on time management H. Patient will follow up in (4) weeks for weight management Of note, some information is being carried forward from prior records for informational purposes only and is being cited so that efficiency, safety and quality of the patient's care is not compromised This note was prepared using voice recognition software and direct typing Please excuse inadvertent psychologist social or typing errors, or uncorrected word substitutions Although every attempt has been made by the provider to proofread this document, occasional misspellings and typographical errors may still be present Due to the previous pandemic, and the use of personal protective equipment (PPE) This may decrease voice recognition accuracy Inadvertent psychologist social errors may occur 12/18/2023 Graves disease (ICD-10 - E05.00) #Weight Management 12/18/2023 Labs reviewed from [facility] September 2023 thriving Given ongoing weight loss this may be a recurrent problem until her weight stabilizes 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 fitness technician and rechecking labs every 4 weeks or [...] minimum of 6 months The most recent [place] [employer]ocrinologists and [employer] guidelines recommend patients who [...] software and direct typing Please excuse inadvertent psychologist social or typing errors, or uncorrected word substitutions Although every attempt has been made by the provider to proofread this document, occasional misspellings and typographical errors may still be present Due to the previous pandemic, and the use of personal protective equipment (PPE) This may decrease voice recognition accuracy Inadvertent psychologist social errors may occur 10/16/2023 Graves disease (ICD-10 - E05.00) #Weight Management 10/16/2023 Labs reviewed from [facility] September 2023 thriving Given ongoing weight loss this may be a recurrent problem until her weight stabilizes 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 fitness technician and rechecking labs every 4 weeks or [...] to be obese with a BMI of (45). Patient has class (3) obesity. We are a board certified obesity and weight management practice Patient has trialed behavioral modification, dietary restrictions and exercise for a minimum of 6 months The most recent [place] [employer]ocrinologists and [employer] guidelines recommend patients who [...] mentioned above and not solely appetite suppression. We have discussed the mechanism of GLP-1's/GIP, dual incretins, appetitite suppressants I think this would be fantastic option for her given her metabolic workup and body composition We have discussed the risks and benefits and side effects including/and not limited to Sarcopenia, intestinal obstruction, constipation, nausea, lethargy, headache Discussed importance of protein consumption for muscle maintenance as well as strength and resistance training ,probiotics, B12 complex biotin , iron and other nutrients, To help avoid telogen effluvium We have discussed the lifelong requirement of nutritional supplementation And adherence to an exercise regimen as well as importance of follow-up The patient understands and agrees There is no history of medullary thyroid cancer or multiple endocrine neoplasia There is also no history of cardiovascular disease, hypertension, palpitations, or arrhythmias In the setting of potential stimulant/amphetam ine use such as phentermine We have also discussed risks and benefits, and the use of compounded medications to help offset the national shortages as well as financial implications vs trade name drugs Patient was reassured and welcomed to the practice. We discussed that we stress a hollistic medical approach with emphasis on lifestyle modification. Patient was informed that a healthy lifestyle with exercise and good eating habits can help reduce his risk of medical complications. He is explained that obesity increases his risk of diabetes, cardiovascular disease, or organ damage. We spent a lot of time discussing the relationship between food, exercise, sleep, mental health and obesity. Patient was counseled on the importance EATING local, organic food when possible. Patient was educated on clean 15 and dirty dozen. I provided information about reading books called The Food Rules by Jose Elias Mo and Eat Fat Get Lean by Dr Christopher Rojas. Self education is important in the journey for weight management. Patient was offered diagnostic testing. We want to measure visceral adiposity, advanced body composition, adverse lipids, fatty acid balance, risk for heart disease and atherosclerosis, markers of inflammation and genetic susceptibility. Patient was counseled on weight management and was advised to lose weight using A. Meal Replacement Products We discussed the lifelong requirement of nutritional supplementation and adherence to an exercise regimen as well as importance of dietary follow-up Patient was educated on the replacement products called optifast. This is a good way of taking fixed amount of calories. It has been shown in studies to be ineffective weight management tool. We also recommend maintaining adequate protein intake and muscle composition, 1.5mg/kg This however has to be coupled with lifestyle intervention as well as laboratory data and EKG monitoring. It is impossible to know how a person will tolerate complete meal replacement. The side effects of meal replacement and weight loss could include syncopal attacks, dizziness, gallstones, potential cholecystectomy, possible heart attack and even . The benefits of meal replacement would be potential weight loss but no guarantees can be made. Meal replacement products are not covered by insurance. Once the patient has bought these products we cannot return them B. Lifestyle management which includes several strategies as below 1. Eat a low carbohydrate good fat good protein diet. Eliminate refined carbohydrates from the diet. Continue blood sugar and sugared beverages. Eat local organic when possible. Cook your own meals. Read food labels. None about healthy snacks. Portion control and food with low glycemic index 2. Exercise regularly. Try to get at least 6000 steps a day. Use a predominant to track activity level. Consider using apps like Imagistx, myfitnesspal, lose it, stick as needed for self-monitoring and weight management. Consider group exercises. Consider hiring a personal financial representative. Regular exercise is carvalho to sustainable health and prevents as a buffer against weight regain 3. Sleep is most important for healing. Tried to sleep at least 8 hours a night. A good quality sleep needs a sleep ritual with ideal room temperature of around 68. It might help to take a shower and have no electronics in the room and sleep in a very dark room without artificial light. Start her sleep routine and get up early in the morning and go to bed on time 4. Make a social connection. Surround yourself with positive people with positive energy. Connect with friends and family. 5. Get into the habit of meditating and mindfulness while doing everything. 6. Go outside and connect with nature. C. Prescription medications Patient was educated on the use of prescription medications for medical weight loss. This is a growing list and includes phentermine, Topamax,Qsymia, contrave, belviq and saxenda. All prescription medications could have side effects including but not limited to kidney stones, seizure disorder cardiac arrhythmias heart attack pancreatitis etc. etc.. Patient was encouraged to read the prescription insert and have coaching with their pharmacist and make an informed decision about taking medication and know that these medications are being prescribed with good intentions and we do not know how a patient would react to her medication. Sudden medications are FDA approved for weight loss and there is also off label use depending on patient's inability to afford medications in an attempt to lose weight D. Behavioral counseling was done to establish a relationship between food and an mood. Patient was provided information about local counseling and psychiatry and Dr Andres at [facility]. We would like to cover regular topics and build on low glycemic eating exercise mindful eating, using yoga and meditation along with deep breathing and connecting with friends and family. E. MASS PAT reviewed, Patient's current medications were reviewed and opinion was given on medication that can cause weight gain and can be substituted F. Patient was assessed for risk with obesity including and not limiting to atherosclerosis heart disease stroke kidney disease, restrictive lung disease, irritable bowel syndrome and overall mortality. Risk of developing prediabetes diabetes and metabolic syndrome was discussed G. Therapeutic plan: We have decided to make therapeutic plan which would include choosing wisely on calories restricting portion getting active, tracking weight, getting good quality sleep and working on time management H. Patient will follow up in (4) weeks for weight management Of note, some information is being carried forward from prior records for informational purposes only and is being cited so that efficiency, safety and quality of the patient's care is not compromised This note was prepared using voice recognition software and direct typing Please excuse inadvertent psychologist social or typing errors, or uncorrected word substitutions Although every attempt has been made by the provider to proofread this document, occasional misspellings and typographical errors may still be present Due to the previous pandemic, and the use of personal protective equipment (PPE) This may decrease voice recognition accuracy Inadvertent psychologist social errors may occur 12/18/2023 Chronic anticoagulation (ICD-10 - Z79.01) #Weight Management 12/18/2023 Labs reviewed from [facility] September 2023 thriving Given ongoing weight loss this may be a recurrent problem until her weight stabilizes 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 fitness technician and rechecking labs every 4 weeks or [...] minimum of 6 months The most recent [place] [employer] endocrinologists and [employer] guidelines recommend patients who [...] software and direct typing Please excuse inadvertent psychologist social or typing errors, or uncorrected word substitutions Although every attempt has been made by the provider to proofread this document, occasional misspellings and typographical errors may still be present Due to the previous pandemic, and the use of personal protective equipment (PPE) This may decrease voice recognition accuracy Inadvertent psychologist social errors may occur 10/16/2023 Chronic anticoagulation (ICD-10 - Z79.01) #Weight Management 10/16/2023 Labs reviewed from [facility] September 2023 thriving Given ongoing weight loss this may be a recurrent problem until her weight stabilizes 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 fitness technician and rechecking labs every 4 weeks or [...] to be obese with a BMI of (45). Patient has class (3) obesity. We are a board certified obesity and weight management practice Patient has trialed behavioral modification, dietary restrictions and exercise for a minimum of 6 months The most recent [place] [employer] clinical endocrinologists and [employer] guidelines recommend patients who [...] mentioned above and not solely appetite suppression. We have discussed the mechanism of GLP-1's/GIP, dual incretins, appetitite suppressants I think this would be fantastic option for her given her metabolic workup and body composition We have discussed the risks and benefits and side effects including/and not limited to Sarcopenia, intestinal obstruction, constipation, nausea, lethargy, headache Discussed importance of protein consumption for muscle maintenance as well as strength and resistance training ,probiotics, B12 complex biotin , iron and other nutrients, To help avoid telogen effluvium We have discussed the lifelong requirement of nutritional supplementation And adherence to an exercise regimen as well as importance of follow-up The patient understands and agrees There is no history of medullary thyroid cancer or multiple endocrine neoplasia There is also no history of cardiovascular disease, hypertension, palpitations, or arrhythmias In the setting of potential stimulant/amphetam ine use such as phentermine We have also discussed risks and benefits, and the use of compounded medications to help offset the national shortages as well as financial implications vs trade name drugs Patient was reassured and welcomed to the practice. We discussed that we stress a hollistic medical approach with emphasis on lifestyle modification. Patient was informed that a healthy lifestyle with exercise and good eating habits can help reduce his risk of medical complications. He is explained that obesity increases his risk of diabetes, cardiovascular disease, or organ damage. We spent a lot of time discussing the relationship between food, exercise, sleep, mental health and obesity. Patient was counseled on the importance EATING local, organic food when possible. Patient was educated on clean 15 and dirty dozen. I provided information about reading books called The Food Rules by Jose Elias Mo and Eat Fat Get Lean by Dr Christopher Rojas. Self education is important in the journey for weight management. Patient was offered diagnostic testing. We want to measure visceral adiposity, advanced body composition, adverse lipids, fatty acid balance, risk for heart disease and atherosclerosis, markers of inflammation and genetic susceptibility. Patient was counseled on weight management and was advised to lose weight using A. Meal Replacement Products We discussed the lifelong requirement of nutritional supplementation and adherence to an exercise regimen as well as importance of dietary follow-up Patient was educated on the replacement products called optifast. This is a good way of taking fixed amount of calories. It has been shown in studies to be ineffective weight management tool. We also recommend maintaining adequate protein intake and muscle composition, 1.5mg/kg This however has to be coupled with lifestyle intervention as well as laboratory data and EKG monitoring. It is impossible to know how a person will tolerate complete meal replacement. The side effects of meal replacement and weight loss could include syncopal attacks, dizziness, gallstones, potential cholecystectomy, possible heart attack and even . The benefits of meal replacement would be potential weight loss but no guarantees can be made. Meal replacement products are not covered by insurance. Once the patient has bought these products we cannot return them B. Lifestyle management which includes several strategies as below 1. Eat a low carbohydrate good fat good protein diet. Eliminate refined carbohydrates from the diet. Continue blood sugar and sugared beverages. Eat local organic when possible. Cook your own meals. Read food labels. None about healthy snacks. Portion control and food with low glycemic index 2. Exercise regularly. Try to get at least 6000 steps a day. Use a predominant to track activity level. Consider using apps like Imagistx, myfitnesspal, lose it, stick as needed for self-monitoring and weight management. Consider group exercises. Consider hiring a personal financial representative. Regular exercise is carvalho to sustainable health and prevents as a buffer against weight regain 3. Sleep is most important for healing. Tried to sleep at least 8 hours a night. A good quality sleep needs a sleep ritual with ideal room temperature of around 68. It might help to take a shower and have no electronics in the room and sleep in a very dark room without artificial light. Start her sleep routine and get up early in the morning and go to bed on time 4. Make a social connection. Surround yourself with positive people with positive energy. Connect with friends and family. 5. Get into the habit of meditating and mindfulness while doing everything. 6. Go outside and connect with nature. C. Prescription medications Patient was educated on the use of prescription medications for medical weight loss. This is a growing list and includes phentermine, Topamax,Qsymia, contrave, belviq and saxenda. All prescription medications could have side effects including but not limited to kidney stones, seizure disorder cardiac arrhythmias heart attack pancreatitis etc. etc.. Patient was encouraged to read the prescription insert and have coaching with their pharmacist and make an informed decision about taking medication and know that these medications are being prescribed with good intentions and we do not know how a patient would react to her medication. Sudden medications are FDA approved for weight loss and there is also off label use depending on patient's inability to afford medications in an attempt to lose weight D. Behavioral counseling was done to establish a relationship between food and an mood. Patient was provided information about local counseling and psychiatry and Dr Andres at [facility]. We would like to cover regular topics and build on low glycemic eating exercise mindful eating, using yoga and meditation along with deep breathing and connecting with friends and family. E. MASS PAT reviewed, Patient's current medications were reviewed and opinion was given on medication that can cause weight gain and can be substituted F. Patient was assessed for risk with obesity including and not limiting to atherosclerosis heart disease stroke kidney disease, restrictive lung disease, irritable bowel syndrome and overall mortality. Risk of developing prediabetes diabetes and metabolic syndrome was discussed G. Therapeutic plan: We have decided to make therapeutic plan which would include choosing wisely on calories restricting portion getting active, tracking weight, getting good quality sleep and working on time management H. Patient will follow up in (4) weeks for weight management Of note, some information is being carried forward from prior records for informational purposes only and is being cited so that efficiency, safety and quality of the patient's care is not compromised This note was prepared using voice recognition software and direct typing Please excuse inadvertent psychologist social or typing errors, or uncorrected word substitutions Although every attempt has been made by the provider to proofread this document, occasional misspellings and typographical errors may still be present Due to the previous pandemic, and the use of personal protective equipment (PPE) This may decrease voice recognition accuracy Inadvertent psychologist social errors may occur 08/07/2023 PAF (paroxysmal atrial fibrillation) (ICD-10 - I48.0) #Weight Management 08/07/2023 thriving Thyroid function is very inconsistent and sporadic at the moment which can alter and hinder weight loss 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 fitness technician and rechecking labs every 4 weeks or [...] to be obese with a BMI of (47). Patient has class (3) obesity. We are a board certified obesity and weight management practice Patient has trialed behavioral modification, dietary restrictions and exercise for a minimum of 6 months The most recent [place] [employer] endocrinologists and [place] [employer] guidelines recommend patients who [...] mentioned above and not solely appetite suppression. We have discussed the mechanism of GLP-1's/GIP, dual incretins, appetitite suppressants I think this would be fantastic option for her given her metabolic workup and body composition We have discussed the risks and benefits and side effects including/and not limited to Sarcopenia, intestinal obstruction, constipation, nausea, lethargy, headache Discussed importance of protein consumption for muscle maintenance as well as strength and resistance training ,probiotics, B12 complex biotin , iron and other nutrients, To help avoid telogen effluvium We have discussed the lifelong requirement of nutritional supplementation And adherence to an exercise regimen as well as importance of follow-up The patient understands and agrees There is no history of medullary thyroid cancer or multiple endocrine neoplasia There is also no history of cardiovascular disease, hypertension, palpitations, or arrhythmias In the setting of potential stimulant/amphetam ine use such as phentermine We have also discussed risks and benefits, and the use of compounded medications to help offset the national shortages as well as financial implications vs trade name drugs Patient was reassured and welcomed to the practice. We discussed that we stress a hollistic medical approach with emphasis on lifestyle modification. Patient was informed that a healthy lifestyle with exercise and good eating habits can help reduce his risk of medical complications. He is explained that obesity increases his risk of diabetes, cardiovascular disease, or organ damage. We spent a lot of time discussing the relationship between food, exercise, sleep, mental health and obesity. Patient was counseled on the importance EATING local, organic food when possible. Patient was educated on clean 15 and dirty dozen. I provided information about reading books called The Food Rules by oJse Elias Mo and Eat Fat Get Lean by Dr Christopher Rojas. Self education is important in the journey for weight management. Patient was offered diagnostic testing. We want to measure visceral adiposity, advanced body composition, adverse lipids, fatty acid balance, risk for heart disease and atherosclerosis, markers of inflammation and genetic susceptibility. Patient was counseled on weight management and was advised to lose weight using A. Meal Replacement Products We discussed the lifelong requirement of nutritional supplementation and adherence to an exercise regimen as well as importance of dietary follow-up Patient was educated on the replacement products called optifast. This is a good way of taking fixed amount of calories. It has been shown in studies to be ineffective weight management tool. We also recommend maintaining adequate protein intake and muscle composition, 1.5mg/kg This however has to be coupled with lifestyle intervention as well as laboratory data and EKG monitoring. It is impossible to know how a person will tolerate complete meal replacement. The side effects of meal replacement and weight loss could include syncopal attacks, dizziness, gallstones, potential cholecystectomy, possible heart attack and even . The benefits of meal replacement would be potential weight loss but no guarantees can be made. Meal replacement products are not covered by insurance. Once the patient has bought these products we cannot return them B. Lifestyle management which includes several strategies as below 1. Eat a low carbohydrate good fat good protein diet. Eliminate refined carbohydrates from the diet. Continue blood sugar and sugared beverages. Eat local organic when possible. Cook your own meals. Read food labels. None about healthy snacks. Portion control and food with low glycemic index 2. Exercise regularly. Try to get at least 6000 steps a day. Use a predominant to track activity level. Consider using apps like Imagistx, myfitSnapchatpal, lose it, stick as needed for self-monitoring and weight management. Consider group exercises. Consider hiring a personal financial representative. Regular exercise is carvalho to sustainable health and prevents as a buffer against weight regain 3. Sleep is most important for healing. Tried to sleep at least 8 hours a night. A good quality sleep needs a sleep ritual with ideal room temperature of around 68. It might help to take a shower and have no electronics in the room and sleep in a very dark room without artificial light. Start her sleep routine and get up early in the morning and go to bed on time 4. Make a social connection. Surround yourself with positive people with positive energy. Connect with friends and family. 5. Get into the habit of meditating and mindfulness while doing everything. 6. Go outside and connect with nature. C. Prescription medications Patient was educated on the use of prescription medications for medical weight loss. This is a growing list and includes phentermine, Topamax,Qsymia, contrave, belviq and saxenda. All prescription medications could have side effects including but not limited to kidney stones, seizure disorder cardiac arrhythmias heart attack pancreatitis etc. etc.. Patient was encouraged to read the prescription insert and have coaching with their pharmacist and make an informed decision about taking medication and know that these medications are being prescribed with good intentions and we do not know how a patient would react to her medication. Sudden medications are FDA approved for weight loss and there is also off label use depending on patient's inability to afford medications in an attempt to lose weight D. Behavioral counseling was done to establish a relationship between food and an mood. Patient was provided information about local counseling and psychiatry and Dr Andres at [facility]. We would like to cover regular topics and build on low glycemic eating exercise mindful eating, using yoga and meditation along with deep breathing and connecting with friends and family. E. MASS PAT reviewed, Patient's current medications were reviewed and opinion was given on medication that can cause weight gain and can be substituted F. Patient was assessed for risk with obesity including and not limiting to atherosclerosis heart disease stroke kidney disease, restrictive lung disease, irritable bowel syndrome and overall mortality. Risk of developing prediabetes diabetes and metabolic syndrome was discussed G. Therapeutic plan: We have decided to make therapeutic plan which would include choosing wisely on calories restricting portion getting active, tracking weight, getting good quality sleep and working on time management H. Patient will follow up in (4) weeks for weight management Of note, some information is being carried forward from prior records for informational purposes only and is being cited so that efficiency, safety and quality of the patient's care is not compromised This note was prepared using voice recognition software and direct typing Please excuse inadvertent psychologist social or typing errors, or uncorrected word substitutions Although every attempt has been made by the provider to proofread this document, occasional misspellings and typographical errors may still be present Due to the previous pandemic, and the use of personal protective equipment (PPE) This may decrease voice recognition accuracy Inadvertent psychologist social errors may occur 06/25/2023 BMI 45.0-49.9, adult (ICD-10 - Z68.42) #Weight Management 06/25/2023 thriving now qualifies for ortho surgery, R TKR Glycemic control much improved on dual incretin therapy cont Contrave for further appetite suppression and craving control She is currently not on any antidepressants Total time spent today was 30 minutes of which greater than 50% was spent on coordinating and counseling Patient has been found to be obese with a BMI of (47). Patient has class (3) obesity. We are a board certified obesity and weight management practice Patient has trialed behavioral modification, dietary restrictions and exercise for a minimum of 6 months The most recent [place] [employer]ocrin[employer] and [place] [employer] guidelines recommend patients who [...] mentioned above and not solely appetite suppression. We have discussed the mechanism of GLP-1's/GIP, dual incretins, appetitite suppressants I think this would be fantastic option for her given her metabolic workup and body composition We have discussed the risks and benefits and side effects including/and not limited to Sarcopenia, intestinal obstruction, constipation, nausea, lethargy, headache Discussed importance of protein consumption for muscle maintenance as well as strength and resistance training ,probiotics, B12 complex biotin , iron and other nutrients, To help avoid telogen effluvium We have discussed the lifelong requirement of nutritional supplementation And adherence to an exercise regimen as well as importance of follow-up The patient understands and agrees There is no history of medullary thyroid cancer or multiple endocrine neoplasia There is also no history of cardiovascular disease, hypertension, palpitations, or arrhythmias In the setting of potential stimulant/amphetam ine use such as phentermine We have also discussed risks and benefits, and the use of compounded medications to help offset the national shortages as well as financial implications vs trade name drugs Patient was reassured and welcomed to the practice. We discussed that we stress a hollistic medical approach with emphasis on lifestyle modification. Patient was informed that a healthy lifestyle with exercise and good eating habits can help reduce his risk of medical complications. He is explained that obesity increases his risk of diabetes, cardiovascular disease, or organ damage. We spent a lot of time discussing the relationship between food, exercise, sleep, mental health and obesity. Patient was counseled on the importance EATING local, organic food when possible. Patient was educated on clean 15 and dirty dozen. I provided information about reading books called The Food Rules by Jose Elias Mo and Eat Fat Get Lean by Dr Christopher Rojas. Self education is important in the journey for weight management. Patient was offered diagnostic testing. We want to measure visceral adiposity, advanced body composition, adverse lipids, fatty acid balance, risk for heart disease and atherosclerosis, markers of inflammation and genetic susceptibility. Patient was counseled on weight management and was advised to lose weight using A. Meal Replacement Products We discussed the lifelong requirement of nutritional supplementation and adherence to an exercise regimen as well as importance of dietary follow-up Patient was educated on the replacement products called optifast. This is a good way of taking fixed amount of calories. It has been shown in studies to be ineffective weight management tool. We also recommend maintaining adequate protein intake and muscle composition, 1.5mg/kg This however has to be coupled with lifestyle intervention as well as laboratory data and EKG monitoring. It is impossible to know how a person will tolerate complete meal replacement. The side effects of meal replacement and weight loss could include syncopal attacks, dizziness, gallstones, potential cholecystectomy, possible heart attack and even . The benefits of meal replacement would be potential weight loss but no guarantees can be made. Meal replacement products are not covered by insurance. Once the patient has bought these products we cannot return them B. Lifestyle management which includes several strategies as below 1. Eat a low carbohydrate good fat good protein diet. Eliminate refined carbohydrates from the diet. Continue blood sugar and sugared beverages. Eat local organic when possible. Cook your own meals. Read food labels. None about healthy snacks. Portion control and food with low glycemic index 2. Exercise regularly. Try to get at least 6000 steps a day. Use a predominant to track activity level. Consider using apps like [employer] mionTerascala excercise, myfitnesspal, lose it, stick as needed for self-monitoring and weight management. Consider group exercises. Consider hiring a personal financial representative. Regular exercise is carvalho to sustainable health and prevents as a buffer against weight regain 3. Sleep is most important for healing. Tried to sleep at least 8 hours a night. A good quality sleep needs a sleep ritual with ideal room temperature of around 68. It might help to take a shower and have no electronics in the room and sleep in a very dark room without artificial light. Start her sleep routine and get up early in the morning and go to bed on time 4. Make a social connection. Surround yourself with positive people with positive energy. Connect with friends and family. 5. Get into the habit of meditating and mindfulness while doing everything. 6. Go outside and connect with nature. C. Prescription medications Patient was educated on the use of prescription medications for medical weight loss. This is a growing list and includes phentermine, Topamax,Qsymia, contrave, belviq and saxenda. All prescription medications could have side effects including but not limited to kidney stones, seizure disorder cardiac arrhythmias heart attack pancreatitis etc. etc.. Patient was encouraged to read the prescription insert and have coaching with their pharmacist and make an informed decision about taking medication and know that these medications are being prescribed with good intentions and we do not know how a patient would react to her medication. Sudden medications are FDA approved for weight loss and there is also off label use depending on patient's inability to afford medications in an attempt to lose weight D. Behavioral counseling was done to establish a relationship between food and an mood. Patient was provided information about local counseling and psychiatry and Dr Andres at [facility]. We would like to cover regular topics and build on low glycemic eating exercise mindful eating, using yoga and meditation along with deep breathing and connecting with friends and family. E. MASS PAT reviewed, Patient's current medications were reviewed and opinion was given on medication that can cause weight gain and can be substituted F. Patient was assessed for risk with obesity including and not limiting to atherosclerosis heart disease stroke kidney disease, restrictive lung disease, irritable bowel syndrome and overall mortality. Risk of developing prediabetes diabetes and metabolic syndrome was discussed G. Therapeutic plan: We have decided to make therapeutic plan which would include choosing wisely on calories restricting portion getting active, tracking weight, getting good quality sleep and working on time management H. Patient will follow up in (4) weeks for weight management Of note, some information is being carried forward from prior records for informational purposes only and is being cited so that efficiency, safety and quality of the patient's care is not compromised This note was prepared using voice recognition software and direct typing Please excuse inadvertent psychologist social or typing errors, or uncorrected word substitutions Although every attempt has been made by the provider to proofread this document, occasional misspellings and typographical errors may still be present Due to the previous pandemic, and the use of personal protective equipment (PPE) This may decrease voice recognition accuracy Inadvertent psychologist social errors may occur 05/08/2023 PAF (paroxysmal atrial fibrillation) (ICD-10 - I48.0) #Weight Management 05/08/2023 Glycemic control much improved on dual incretin therapy We discussed introducing Contrave for further appetite suppression and craving control She is currently not on any antidepressants Total time spent today was 30 minutes of which greater than 50% was spent on coordinating and counseling Patient has been found to be obese with a BMI of (51). Patient has class (3) obesity. We are a board certified obesity and weight management practice Patient has trialed behavioral modification, dietary restrictions and exercise for a minimum of 6 months The most recent [place] [employer] endocrinologists and [place] [employer] guidelines recommend patients who [...] mentioned above and not solely appetite suppression. We have discussed the mechanism of GLP-1's/GIP, dual incretins, appetitite suppressants I think this would be fantastic option for her given her metabolic workup and body composition We have discussed the risks and benefits and side effects including/and not limited to Sarcopenia, intestinal obstruction, constipation, nausea, lethargy, headache Discussed importance of protein consumption for muscle maintenance as well as strength and resistance training ,probiotics, B12 complex biotin , iron and other nutrients, To help avoid telogen effluvium We have discussed the lifelong requirement of nutritional supplementation And adherence to an exercise regimen as well as importance of follow-up The patient understands and agrees There is no history of medullary thyroid cancer or multiple endocrine neoplasia There is also no history of cardiovascular disease, hypertension, palpitations, or arrhythmias In the setting of potential stimulant/amphetam ine use such as phentermine We have also discussed risks and benefits, and the use of compounded medications to help offset the national shortages as well as financial implications vs trade name drugs Patient was reassured and welcomed to the practice. We discussed that we stress a hollistic medical approach with emphasis on lifestyle modification. Patient was informed that a healthy lifestyle with exercise and good eating habits can help reduce his risk of medical complications. He is explained that obesity increases his risk of diabetes, cardiovascular disease, or organ damage. We spent a lot of time discussing the relationship between food, exercise, sleep, mental health and obesity. Patient was counseled on the importance EATING local, organic food when possible. Patient was educated on clean 15 and dirty dozen. I provided information about reading books called The Food Rules by Jose Elias Mo and Eat Fat Get Lean by Dr Christopher Rojas. Self education is important in the journey for weight management. Patient was offered diagnostic testing. We want to measure visceral adiposity, advanced body composition, adverse lipids, fatty acid balance, risk for heart disease and atherosclerosis, markers of inflammation and genetic susceptibility. Patient was counseled on weight management and was advised to lose weight using A. Meal Replacement Products We discussed the lifelong requirement of nutritional supplementation and adherence to an exercise regimen as well as importance of dietary follow-up Patient was educated on the replacement products called optifast. This is a good way of taking fixed amount of calories. It has been shown in studies to be ineffective weight management tool. We also recommend maintaining adequate protein intake and muscle composition, 1.5mg/kg This however has to be coupled with lifestyle intervention as well as laboratory data and EKG monitoring. It is impossible to know how a person will tolerate complete meal replacement. The side effects of meal replacement and weight loss could include syncopal attacks, dizziness, gallstones, potential cholecystectomy, possible heart attack and even . The benefits of meal replacement would be potential weight loss but no guarantees can be made. Meal replacement products are not covered by insurance. Once the patient has bought these products we cannot return them B. Lifestyle management which includes several strategies as below 1. Eat a low carbohydrate good fat good protein diet. Eliminate refined carbohydrates from the diet. Continue blood sugar and sugared beverages. Eat local organic when possible. Cook your own meals. Read food labels. None about healthy snacks. Portion control and food with low glycemic index 2. Exercise regularly. Try to get at least 6000 steps a day. Use a predominant to track activity level. Consider using apps like Imagistx, Drivypal, lose it, stick as needed for self-monitoring and weight management. Consider group exercises. Consider hiring a personal financial representative. Regular exercise is carvalho to sustainable health and prevents as a buffer against weight regain 3. Sleep is most important for healing. Tried to sleep at least 8 hours a night. A good quality sleep needs a sleep ritual with ideal room temperature of around 68. It might help to take a shower and have no electronics in the room and sleep in a very dark room without artificial light. Start her sleep routine and get up early in the morning and go to bed on time 4. Make a social connection. Surround yourself with positive people with positive energy. Connect with friends and family. 5. Get into the habit of meditating and mindfulness while doing everything. 6. Go outside and connect with nature. C. Prescription medications Patient was educated on the use of prescription medications for medical weight loss. This is a growing list and includes phentermine, Topamax,Qsymia, contrave, belviq and saxenda. All prescription medications could have side effects including but not limited to kidney stones, seizure disorder cardiac arrhythmias heart attack pancreatitis etc. etc.. Patient was encouraged to read the prescription insert and have coaching with their pharmacist and make an informed decision about taking medication and know that these medications are being prescribed with good intentions and we do not know how a patient would react to her medication. Sudden medications are FDA approved for weight loss and there is also off label use depending on patient's inability to afford medications in an attempt to lose weight D. Behavioral counseling was done to establish a relationship between food and an mood. Patient was provided information about local counseling and psychiatry and Dr Andres at [facility]. We would like to cover regular topics and build on low glycemic eating exercise mindful eating, using yoga and meditation along with deep breathing and connecting with friends and family. E. MASS PAT reviewed, Patient's current medications were reviewed and opinion was given on medication that can cause weight gain and can be substituted F. Patient was assessed for risk with obesity including and not limiting to atherosclerosis heart disease stroke kidney disease, restrictive lung disease, irritable bowel syndrome and overall mortality. Risk of developing prediabetes diabetes and metabolic syndrome was discussed G. Therapeutic plan: We have decided to make therapeutic plan which would include choosing wisely on calories restricting portion getting active, tracking weight, getting good quality sleep and working on time management H. Patient will follow up in (4) weeks for weight management Of note, some information is being carried forward from prior records for informational purposes only and is being cited so that efficiency, safety and quality of the patient's care is not compromised This note was prepared using voice recognition software and direct typing Please excuse inadvertent psychologist social or typing errors, or uncorrected word substitutions Although every attempt has been made by the provider to proofread this document, occasional misspellings and typographical errors may still be present Due to the previous pandemic, and the use of personal protective equipment (PPE) This may decrease voice recognition accuracy Inadvertent psychologist social errors may occur 03/10/2023 PAF (paroxysmal atrial fibrillation) (ICD-10 - I48.0) As per HPI dc the sulfonylurea we have cut back her metformin by 50% to 750 mg extended release increase Mounjaro from 12.5 to 15 mg She is Thriving already doing very well on this regimen I will request and coordinate with fitness technician and primary care In office A1c 5.6 today 02/2023 Total time spent today was 30 minutes of which greater than 50% was spent on coordinating and counseling We are a board certified obesity and weight management practice Patient has trialed behavioral modification, dietary restrictions and exercise for a minimum of 6 months The most recent [place] [employer] and [place] [employer] guidelines recommend patients who [...] mentioned above and not solely appetite suppression. We have discussed the mechanism of GLP-1's/GIP, dual incretins, appetitite suppressants I think this would be fantastic option for her given her metabolic workup and body composition We have discussed the risks and benefits and side effects including/and not limited to Sarcopenia, intestinal obstruction, constipation, nausea, lethargy, headache Discussed importance of protein consumption for muscle maintenance as well as strength and resistance training ,probiotics, B12 complex biotin , iron and other nutrients, To help avoid telogen effluvium We have discussed the lifelong requirement of nutritional supplementation And adherence to an exercise regimen as well as importance of follow-up The patient understands and agrees There is no history of medullary thyroid cancer or multiple endocrine neoplasia There is also no history of cardiovascular disease, hypertension, palpitations, or arrhythmias In the setting of potential stimulant/amphetam ine use such as phentermine We have also discussed risks and benefits, and the use of compounded medications to help offset the national shortages as well as financial implications vs trade name drugs Patient has been found to be obese with a BMI of (). Patient has class () obesity. Patient was reassured and welcomed to the practice. We discussed that we stress a hollistic medical approach with emphasis on lifestyle modification. Patient was informed that a healthy lifestyle with exercise and good eating habits can help reduce his risk of medical complications. He is explained that obesity increases his risk of diabetes, cardiovascular disease, or organ damage. We spent a lot of time discussing the relationship between food, exercise, sleep, mental health and obesity. Patient was counseled on the importance EATING local, organic food when possible. Patient was educated on clean 15 and dirty dozen. I provided information about reading books called The Food Rules by Jose Elias Mo and Eat Fat Get Lean by Dr Christopher Rojas. Self education is important in the journey for weight management. Patient was offered diagnostic testing. We want to measure visceral adiposity, advanced body composition, adverse lipids, fatty acid balance, risk for heart disease and atherosclerosis, markers of inflammation and genetic susceptibility. Patient was counseled on weight management and was advised to lose weight using A. Meal Replacement Products We discussed the lifelong requirement of nutritional supplementation and adherence to an exercise regimen as well as importance of dietary follow-up Patient was educated on the replacement products called optifast. This is a good way of taking fixed amount of calories. It has been shown in studies to be ineffective weight management tool. We also recommend maintaining adequate protein intake and muscle composition, 1.5mg/kg This however has to be coupled with lifestyle intervention as well as laboratory data and EKG monitoring. It is impossible to know how a person will tolerate complete meal replacement. The side effects of meal replacement and weight loss could include syncopal attacks, dizziness, gallstones, potential cholecystectomy, possible heart attack and even . The benefits of meal replacement would be potential weight loss but no guarantees can be made. Meal replacement products are not covered by insurance. Once the patient has bought these products we cannot return them B. Lifestyle management which includes several strategies as below 1. Eat a low carbohydrate good fat good protein diet. Eliminate refined carbohydrates from the diet. Continue blood sugar and sugared beverages. Eat local organic when possible. Cook your own meals. Read food labels. None about healthy snacks. Portion control and food with low glycemic index 2. Exercise regularly. Try to get at least 6000 steps a day. Use a predominant to track activity level. Consider using apps like Imagistx, Drivypal, lose it, stick as needed for self-monitoring and weight management. Consider group exercises. Consider hiring a personal financial representative. Regular exercise is carvalho to sustainable health and prevents as a buffer against weight regain 3. Sleep is most important for healing. Tried to sleep at least 8 hours a night. A good quality sleep needs a sleep ritual with ideal room temperature of around 68. It might help to take a shower and have no electronics in the room and sleep in a very dark room without artificial light. Start her sleep routine and get up early in the morning and go to bed on time 4. Make a social connection. Surround yourself with positive people with positive energy. Connect with friends and family. 5. Get into the habit of meditating and mindfulness while doing everything. 6. Go outside and connect with nature. C. Prescription medications Patient was educated on the use of prescription medications for medical weight loss. This is a growing list and includes phentermine, Topamax,Qsymia, contrave, belviq and saxenda. All prescription medications could have side effects including but not limited to kidney stones, seizure disorder cardiac arrhythmias heart attack pancreatitis etc. etc.. Patient was encouraged to read the prescription insert and have coaching with their pharmacist and make an informed decision about taking medication and know that these medications are being prescribed with good intentions and we do not know how a patient would react to her medication. Sudden medications are FDA approved for weight loss and there is also off label use depending on patient's inability to afford medications in an attempt to lose weight D. Behavioral counseling was done to establish a relationship between food and an mood. Patient was provided information about local counseling and psychiatry and Dr Andres at [facility]. We would like to cover regular topics and build on low glycemic eating exercise mindful eating, using yoga and meditation along with deep breathing and connecting with friends and family. E. MASS PAT reviewed, Patient's current medications were reviewed and opinion was given on medication that can cause weight gain and can be substituted F. Patient was assessed for risk with obesity including and not limiting to atherosclerosis heart disease stroke kidney disease, restrictive lung disease, irritable bowel syndrome and overall mortality. Risk of developing prediabetes diabetes and metabolic syndrome was discussed G. Therapeutic plan: We have decided to make therapeutic plan which would include choosing wisely on calories restricting portion getting active, tracking weight, getting good quality sleep and working on time management H. Patient will follow up in (4) weeks for weight management Of note, some information is being carried forward from prior records for informational purposes only and is being cited so that efficiency, safety and quality of the patient's care is not compromised This note was prepared using voice recognition software and direct typing Please excuse inadvertent psychologist social or typing errors, or uncorrected word substitutions Although every attempt has been made by the provider to proofread this document, occasional misspellings and typographical errors may still be present Due to the previous pandemic, and the use of personal protective equipment (PPE) This may decrease voice recognition accuracy Inadvertent psychologist social errors may occur 03/10/2023 NICHOLE (obstructive sleep apnea) (ICD-10 - G47.33) As per HPI dc the sulfonylurea we have cut back her metformin by 50% to 750 mg extended release increase Mounjaro from 12.5 to 15 mg She is Thriving already doing very well on this regimen I will request and coordinate with fitness technician and primary care In office A1c 5.6 today 02/2023 Total time spent today was 30 minutes of which greater than 50% was spent on coordinating and counseling We are a board certified obesity and weight management practice Patient has trialed behavioral modification, dietary restrictions and exercise for a minimum of 6 months The most recent [place] [employer]in[employer] and [place] [employer] guidelines recommend patients who [...] mentioned above and not solely appetite suppression. We have discussed the mechanism of GLP-1's/GIP, dual incretins, appetitite suppressants I think this would be fantastic option for her given her metabolic workup and body composition We have discussed the risks and benefits and side effects including/and not limited to Sarcopenia, intestinal obstruction, constipation, nausea, lethargy, headache Discussed importance of protein consumption for muscle maintenance as well as strength and resistance training ,probiotics, B12 complex biotin , iron and other nutrients, To help avoid telogen effluvium We have discussed the lifelong requirement of nutritional supplementation And adherence to an exercise regimen as well as importance of follow-up The patient understands and agrees There is no history of medullary thyroid cancer or multiple endocrine neoplasia There is also no history of cardiovascular disease, hypertension, palpitations, or arrhythmias In the setting of potential stimulant/amphetam ine use such as phentermine We have also discussed risks and benefits, and the use of compounded medications to help offset the national shortages as well as financial implications vs trade name drugs Patient has been found to be obese with a BMI of (). Patient has class () obesity. Patient was reassured and welcomed to the practice. We discussed that we stress a hollistic medical approach with emphasis on lifestyle modification. Patient was informed that a healthy lifestyle with exercise and good eating habits can help reduce his risk of medical complications. He is explained that obesity increases his risk of diabetes, cardiovascular disease, or organ damage. We spent a lot of time discussing the relationship between food, exercise, sleep, mental health and obesity. Patient was counseled on the importance EATING local, organic food when possible. Patient was educated on clean 15 and dirty dozen. I provided information about reading books called The Food Rules by Jose Elias Mo and Eat Fat Get Lean by Dr Christopher Rojas. Self education is important in the journey for weight management. Patient was offered diagnostic testing. We want to measure visceral adiposity, advanced body composition, adverse lipids, fatty acid balance, risk for heart disease and atherosclerosis, markers of inflammation and genetic susceptibility. Patient was counseled on weight management and was advised to lose weight using A. Meal Replacement Products We discussed the lifelong requirement of nutritional supplementation and adherence to an exercise regimen as well as importance of dietary follow-up Patient was educated on the replacement products called optifast. This is a good way of taking fixed amount of calories. It has been shown in studies to be ineffective weight management tool. We also recommend maintaining adequate protein intake and muscle composition, 1.5mg/kg This however has to be coupled with lifestyle intervention as well as laboratory data and EKG monitoring. It is impossible to know how a person will tolerate complete meal replacement. The side effects of meal replacement and weight loss could include syncopal attacks, dizziness, gallstones, potential cholecystectomy, possible heart attack and even . The benefits of meal replacement would be potential weight loss but no guarantees can be made. Meal replacement products are not covered by insurance. Once the patient has bought these products we cannot return them B. Lifestyle management which includes several strategies as below 1. Eat a low carbohydrate good fat good protein diet. Eliminate refined carbohydrates from the diet. Continue blood sugar and sugared beverages. Eat local organic when possible. Cook your own meals. Read food labels. None about healthy snacks. Portion control and food with low glycemic index 2. Exercise regularly. Try to get at least 6000 steps a day. Use a predominant to track activity level. Consider using apps like Imagistx, Drivypal, lose it, stick as needed for self-monitoring and weight management. Consider group exercises. Consider hiring a personal financial representative. Regular exercise is carvalho to sustainable health and prevents as a buffer against weight regain 3. Sleep is most important for healing. Tried to sleep at least 8 hours a night. A good quality sleep needs a sleep ritual with ideal room temperature of around 68. It might help to take a shower and have no electronics in the room and sleep in a very dark room without artificial light. Start her sleep routine and get up early in the morning and go to bed on time 4. Make a social connection. Surround yourself with positive people with positive energy. Connect with friends and family. 5. Get into the habit of meditating and mindfulness while doing everything. 6. Go outside and connect with nature. C. Prescription medications Patient was educated on the use of prescription medications for medical weight loss. This is a growing list and includes phentermine, Topamax,Qsymia, contrave, belviq and saxenda. All prescription medications could have side effects including but not limited to kidney stones, seizure disorder cardiac arrhythmias heart attack pancreatitis etc. etc.. Patient was encouraged to read the prescription insert and have coaching with their pharmacist and make an informed decision about taking medication and know that these medications are being prescribed with good intentions and we do not know how a patient would react to her medication. Sudden medications are FDA approved for weight loss and there is also off label use depending on patient's inability to afford medications in an attempt to lose weight D. Behavioral counseling was done to establish a relationship between food and an mood. Patient was provided information about local counseling and psychiatry and Dr Andres at [facility]. We would like to cover regular topics and build on low glycemic eating exercise mindful eating, using yoga and meditation along with deep breathing and connecting with friends and family. E. MASS PAT reviewed, Patient's current medications were reviewed and opinion was given on medication that can cause weight gain and can be substituted F. Patient was assessed for risk with obesity including and not limiting to atherosclerosis heart disease stroke kidney disease, restrictive lung disease, irritable bowel syndrome and overall mortality. Risk of developing prediabetes diabetes and metabolic syndrome was discussed G. Therapeutic plan: We have decided to make therapeutic plan which would include choosing wisely on calories restricting portion getting active, tracking weight, getting good quality sleep and working on time management H. Patient will follow up in (4) weeks for weight management Of note, some information is being carried forward from prior records for informational purposes only and is being cited so that efficiency, safety and quality of the patient's care is not compromised This note was prepared using voice recognition software and direct typing Please excuse inadvertent psychologist social or typing errors, or uncorrected word substitutions Although every attempt has been made by the provider to proofread this document, occasional misspellings and typographical errors may still be present Due to the previous pandemic, and the use of personal protective equipment (PPE) This may decrease voice recognition accuracy Inadvertent psychologist social errors may occur 05/08/2023 NICHOLE (obstructive sleep apnea) (ICD-10 - G47.33) #Weight Management 05/08/2023 Glycemic control much improved on dual incretin therapy We discussed introducing Contrave for further appetite suppression and craving control She is currently not on any antidepressants Total time spent today was 30 minutes of which greater than 50% was spent on coordinating and counseling Patient has been found to be obese with a BMI of (51). Patient has class (3) obesity. We are a board certified obesity and weight management practice Patient has trialed behavioral modification, dietary restrictions and exercise for a minimum of 6 months The most recent [place] [employer]ocrinologists and [place] [employer] guidelines recommend patients who [...] mentioned above and not solely appetite suppression. We have discussed the mechanism of GLP-1's/GIP, dual incretins, appetitite suppressants I think this would be fantastic option for her given her metabolic workup and body composition We have discussed the risks and benefits and side effects including/and not limited to Sarcopenia, intestinal obstruction, constipation, nausea, lethargy, headache Discussed importance of protein consumption for muscle maintenance as well as strength and resistance training ,probiotics, B12 complex biotin , iron and other nutrients, To help avoid telogen effluvium We have discussed the lifelong requirement of nutritional supplementation And adherence to an exercise regimen as well as importance of follow-up The patient understands and agrees There is no history of medullary thyroid cancer or multiple endocrine neoplasia There is also no history of cardiovascular disease, hypertension, palpitations, or arrhythmias In the setting of potential stimulant/amphetam ine use such as phentermine We have also discussed risks and benefits, and the use of compounded medications to help offset the national shortages as well as financial implications vs trade name drugs Patient was reassured and welcomed to the practice. We discussed that we stress a hollistic medical approach with emphasis on lifestyle modification. Patient was informed that a healthy lifestyle with exercise and good eating habits can help reduce his risk of medical complications. He is explained that obesity increases his risk of diabetes, cardiovascular disease, or organ damage. We spent a lot of time discussing the relationship between food, exercise, sleep, mental health and obesity. Patient was counseled on the importance EATING local, organic food when possible. Patient was educated on clean 15 and dirty dozen. I provided information about reading books called The Food Rules by Jose Elias Mo and Eat Fat Get Lean by Dr Christopher Rojas. Self education is important in the journey for weight management. Patient was offered diagnostic testing. We want to measure visceral adiposity, advanced body composition, adverse lipids, fatty acid balance, risk for heart disease and atherosclerosis, markers of inflammation and genetic susceptibility. Patient was counseled on weight management and was advised to lose weight using A. Meal Replacement Products We discussed the lifelong requirement of nutritional supplementation and adherence to an exercise regimen as well as importance of dietary follow-up Patient was educated on the replacement products called optifast. This is a good way of taking fixed amount of calories. It has been shown in studies to be ineffective weight management tool. We also recommend maintaining adequate protein intake and muscle composition, 1.5mg/kg This however has to be coupled with lifestyle intervention as well as laboratory data and EKG monitoring. It is impossible to know how a person will tolerate complete meal replacement. The side effects of meal replacement and weight loss could include syncopal attacks, dizziness, gallstones, potential cholecystectomy, possible heart attack and even . The benefits of meal replacement would be potential weight loss but no guarantees can be made. Meal replacement products are not covered by insurance. Once the patient has bought these products we cannot return them B. Lifestyle management which includes several strategies as below 1. Eat a low carbohydrate good fat good protein diet. Eliminate refined carbohydrates from the diet. Continue blood sugar and sugared beverages. Eat local organic when possible. Cook your own meals. Read food labels. None about healthy snacks. Portion control and food with low glycemic index 2. Exercise regularly. Try to get at least 6000 steps a day. Use a predominant to track activity level. Consider using apps like Imagistx, Useful SystemsfitSnapchatpal, lose it, stick as needed for self-monitoring and weight management. Consider group exercises. Consider hiring a personal financial representative. Regular exercise is carvalho to sustainable health and prevents as a buffer against weight regain 3. Sleep is most important for healing. Tried to sleep at least 8 hours a night. A good quality sleep needs a sleep ritual with ideal room temperature of around 68. It might help to take a shower and have no electronics in the room and sleep in a very dark room without artificial light. Start her sleep routine and get up early in the morning and go to bed on time 4. Make a social connection. Surround yourself with positive people with positive energy. Connect with friends and family. 5. Get into the habit of meditating and mindfulness while doing everything. 6. Go outside and connect with nature. C. Prescription medications Patient was educated on the use of prescription medications for medical weight loss. This is a growing list and includes phentermine, Topamax,Qsymia, contrave, belviq and saxenda. All prescription medications could have side effects including but not limited to kidney stones, seizure disorder cardiac arrhythmias heart attack pancreatitis etc. etc.. Patient was encouraged to read the prescription insert and have coaching with their pharmacist and make an informed decision about taking medication and know that these medications are being prescribed with good intentions and we do not know how a patient would react to her medication. Sudden medications are FDA approved for weight loss and there is also off label use depending on patient's inability to afford medications in an attempt to lose weight D. Behavioral counseling was done to establish a relationship between food and an mood. Patient was provided information about local counseling and psychiatry and Dr Andres at [facility]. We would like to cover regular topics and build on low glycemic eating exercise mindful eating, using yoga and meditation along with deep breathing and connecting with friends and family. E. MASS PAT reviewed, Patient's current medications were reviewed and opinion was given on medication that can cause weight gain and can be substituted F. Patient was assessed for risk with obesity including and not limiting to atherosclerosis heart disease stroke kidney disease, restrictive lung disease, irritable bowel syndrome and overall mortality. Risk of developing prediabetes diabetes and metabolic syndrome was discussed G. Therapeutic plan: We have decided to make therapeutic plan which would include choosing wisely on calories restricting portion getting active, tracking weight, getting good quality sleep and working on time management H. Patient will follow up in (4) weeks for weight management Of note, some information is being carried forward from prior records for informational purposes only and is being cited so that efficiency, safety and quality of the patient's care is not compromised This note was prepared using voice recognition software and direct typing Please excuse inadvertent psychologist social or typing errors, or uncorrected word substitutions Although every attempt has been made by the provider to proofread this document, occasional misspellings and typographical errors may still be present Due to the previous pandemic, and the use of personal protective equipment (PPE) This may decrease voice recognition accuracy Inadvertent psychologist social errors may occur 08/07/2023 NICHOLE (obstructive sleep apnea) (ICD-10 - G47.33) #Weight Management 08/07/2023 thriving Thyroid function is very inconsistent and sporadic at the moment which can alter and hinder weight loss 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 fitness technician and rechecking labs every 4 weeks or [...] to be obese with a BMI of (47). Patient has class (3) obesity. We are a board certified obesity and weight management practice Patient has trialed behavioral modification, dietary restrictions and exercise for a minimum of 6 months The most recent [place] [employer]ocrin[employer] and [place] [employer] guidelines recommend patients who [...] mentioned above and not solely appetite suppression. We have discussed the mechanism of GLP-1's/GIP, dual incretins, appetitite suppressants I think this would be fantastic option for her given her metabolic workup and body composition We have discussed the risks and benefits and side effects including/and not limited to Sarcopenia, intestinal obstruction, constipation, nausea, lethargy, headache Discussed importance of protein consumption for muscle maintenance as well as strength and resistance training ,probiotics, B12 complex biotin , iron and other nutrients, To help avoid telogen effluvium We have discussed the lifelong requirement of nutritional supplementation And adherence to an exercise regimen as well as importance of follow-up The patient understands and agrees There is no history of medullary thyroid cancer or multiple endocrine neoplasia There is also no history of cardiovascular disease, hypertension, palpitations, or arrhythmias In the setting of potential stimulant/amphetam ine use such as phentermine We have also discussed risks and benefits, and the use of compounded medications to help offset the national shortages as well as financial implications vs trade name drugs Patient was reassured and welcomed to the practice. We discussed that we stress a hollistic medical approach with emphasis on lifestyle modification. Patient was informed that a healthy lifestyle with exercise and good eating habits can help reduce his risk of medical complications. He is explained that obesity increases his risk of diabetes, cardiovascular disease, or organ damage. We spent a lot of time discussing the relationship between food, exercise, sleep, mental health and obesity. Patient was counseled on the importance EATING local, organic food when possible. Patient was educated on clean 15 and dirty dozen. I provided information about reading books called The Food Rules by Jose Elias Mo and Eat Fat Get Lean by Dr Christopher Rojas. Self education is important in the journey for weight management. Patient was offered diagnostic testing. We want to measure visceral adiposity, advanced body composition, adverse lipids, fatty acid balance, risk for heart disease and atherosclerosis, markers of inflammation and genetic susceptibility. Patient was counseled on weight management and was advised to lose weight using A. Meal Replacement Products We discussed the lifelong requirement of nutritional supplementation and adherence to an exercise regimen as well as importance of dietary follow-up Patient was educated on the replacement products called optifast. This is a good way of taking fixed amount of calories. It has been shown in studies to be ineffective weight management tool. We also recommend maintaining adequate protein intake and muscle composition, 1.5mg/kg This however has to be coupled with lifestyle intervention as well as laboratory data and EKG monitoring. It is impossible to know how a person will tolerate complete meal replacement. The side effects of meal replacement and weight loss could include syncopal attacks, dizziness, gallstones, potential cholecystectomy, possible heart attack and even . The benefits of meal replacement would be potential weight loss but no guarantees can be made. Meal replacement products are not covered by insurance. Once the patient has bought these products we cannot return them B. Lifestyle management which includes several strategies as below 1. Eat a low carbohydrate good fat good protein diet. Eliminate refined carbohydrates from the diet. Continue blood sugar and sugared beverages. Eat local organic when possible. Cook your own meals. Read food labels. None about healthy snacks. Portion control and food with low glycemic index 2. Exercise regularly. Try to get at least 6000 steps a day. Use a predominant to track activity level. Consider using apps like Imagistx, Drivypal, lose it, stick as needed for self-monitoring and weight management. Consider group exercises. Consider hiring a personal financial representative. Regular exercise is carvalho to sustainable health and prevents as a buffer against weight regain 3. Sleep is most important for healing. Tried to sleep at least 8 hours a night. A good quality sleep needs a sleep ritual with ideal room temperature of around 68. It might help to take a shower and have no electronics in the room and sleep in a very dark room without artificial light. Start her sleep routine and get up early in the morning and go to bed on time 4. Make a social connection. Surround yourself with positive people with positive energy. Connect with friends and family. 5. Get into the habit of meditating and mindfulness while doing everything. 6. Go outside and connect with nature. C. Prescription medications Patient was educated on the use of prescription medications for medical weight loss. This is a growing list and includes phentermine, Topamax,Qsymia, contrave, belviq and saxenda. All prescription medications could have side effects including but not limited to kidney stones, seizure disorder cardiac arrhythmias heart attack pancreatitis etc. etc.. Patient was encouraged to read the prescription insert and have coaching with their pharmacist and make an informed decision about taking medication and know that these medications are being prescribed with good intentions and we do not know how a patient would react to her medication. Sudden medications are FDA approved for weight loss and there is also off label use depending on patient's inability to afford medications in an attempt to lose weight D. Behavioral counseling was done to establish a relationship between food and an mood. Patient was provided information about local counseling and psychiatry and Dr Andres at [facility]. We would like to cover regular topics and build on low glycemic eating exercise mindful eating, using yoga and meditation along with deep breathing and connecting with friends and family. E. MASS PAT reviewed, Patient's current medications were reviewed and opinion was given on medication that can cause weight gain and can be substituted F. Patient was assessed for risk with obesity including and not limiting to atherosclerosis heart disease stroke kidney disease, restrictive lung disease, irritable bowel syndrome and overall mortality. Risk of developing prediabetes diabetes and metabolic syndrome was discussed G. Therapeutic plan: We have decided to make therapeutic plan which would include choosing wisely on calories restricting portion getting active, tracking weight, getting good quality sleep and working on time management H. Patient will follow up in (4) weeks for weight management Of note, some information is being carried forward from prior records for informational purposes only and is being cited so that efficiency, safety and quality of the patient's care is not compromised This note was prepared using voice recognition software and direct typing Please excuse inadvertent psychologist social or typing errors, or uncorrected word substitutions Although every attempt has been made by the provider to proofread this document, occasional misspellings and typographical errors may still be present Due to the previous pandemic, and the use of personal protective equipment (PPE) This may decrease voice recognition accuracy Inadvertent psychologist social errors may occur 10/16/2023 PAF (paroxysmal atrial fibrillation) (ICD-10 - I48.0) #Weight Management 10/16/2023 Labs reviewed from [facility] September 2023 thriving Given ongoing weight loss this may be a recurrent problem until her weight stabilizes 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 fitness technician and rechecking labs every 4 weeks or [...] to be obese with a BMI of (45). Patient has class (3) obesity. We are a board certified obesity and weight management practice Patient has trialed behavioral modification, dietary restrictions and exercise for a minimum of 6 months The most recent [place] [employer] endocrinologists and [place] [employer] guidelines recommend patients who [...] mentioned above and not solely appetite suppression. We have discussed the mechanism of GLP-1's/GIP, dual incretins, appetitite suppressants I think this would be fantastic option for her given her metabolic workup and body composition We have discussed the risks and benefits and side effects including/and not limited to Sarcopenia, intestinal obstruction, constipation, nausea, lethargy, headache Discussed importance of protein consumption for muscle maintenance as well as strength and resistance training ,probiotics, B12 complex biotin , iron and other nutrients, To help avoid telogen effluvium We have discussed the lifelong requirement of nutritional supplementation And adherence to an exercise regimen as well as importance of follow-up The patient understands and agrees There is no history of medullary thyroid cancer or multiple endocrine neoplasia There is also no history of cardiovascular disease, hypertension, palpitations, or arrhythmias In the setting of potential stimulant/amphetam ine use such as phentermine We have also discussed risks and benefits, and the use of compounded medications to help offset the national shortages as well as financial implications vs trade name drugs Patient was reassured and welcomed to the practice. We discussed that we stress a hollistic medical approach with emphasis on lifestyle modification. Patient was informed that a healthy lifestyle with exercise and good eating habits can help reduce his risk of medical complications. He is explained that obesity increases his risk of diabetes, cardiovascular disease, or organ damage. We spent a lot of time discussing the relationship between food, exercise, sleep, mental health and obesity. Patient was counseled on the importance EATING local, organic food when possible. Patient was educated on clean 15 and dirty dozen. I provided information about reading books called The Food Rules by Jose Elias Mo and Eat Fat Get Lean by Dr Christopher Rojas. Self education is important in the journey for weight management. Patient was offered diagnostic testing. We want to measure visceral adiposity, advanced body composition, adverse lipids, fatty acid balance, risk for heart disease and atherosclerosis, markers of inflammation and genetic susceptibility. Patient was counseled on weight management and was advised to lose weight using A. Meal Replacement Products We discussed the lifelong requirement of nutritional supplementation and adherence to an exercise regimen as well as importance of dietary follow-up Patient was educated on the replacement products called optifast. This is a good way of taking fixed amount of calories. It has been shown in studies to be ineffective weight management tool. We also recommend maintaining adequate protein intake and muscle composition, 1.5mg/kg This however has to be coupled with lifestyle intervention as well as laboratory data and EKG monitoring. It is impossible to know how a person will tolerate complete meal replacement. The side effects of meal replacement and weight loss could include syncopal attacks, dizziness, gallstones, potential cholecystectomy, possible heart attack and even . The benefits of meal replacement would be potential weight loss but no guarantees can be made. Meal replacement products are not covered by insurance. Once the patient has bought these products we cannot return them B. Lifestyle management which includes several strategies as below 1. Eat a low carbohydrate good fat good protein diet. Eliminate refined carbohydrates from the diet. Continue blood sugar and sugared beverages. Eat local organic when possible. Cook your own meals. Read food labels. None about healthy snacks. Portion control and food with low glycemic index 2. Exercise regularly. Try to get at least 6000 steps a day. Use a predominant to track activity level. Consider using apps like Imagistx, Drivypal, lose it, stick as needed for self-monitoring and weight management. Consider group exercises. Consider hiring a personal financial representative. Regular exercise is carvalho to sustainable health and prevents as a buffer against weight regain 3. Sleep is most important for healing. Tried to sleep at least 8 hours a night. A good quality sleep needs a sleep ritual with ideal room temperature of around 68. It might help to take a shower and have no electronics in the room and sleep in a very dark room without artificial light. Start her sleep routine and get up early in the morning and go to bed on time 4. Make a social connection. Surround yourself with positive people with positive energy. Connect with friends and family. 5. Get into the habit of meditating and mindfulness while doing everything. 6. Go outside and connect with nature. C. Prescription medications Patient was educated on the use of prescription medications for medical weight loss. This is a growing list and includes phentermine, Topamax,Qsymia, contrave, belviq and saxenda. All prescription medications could have side effects including but not limited to kidney stones, seizure disorder cardiac arrhythmias heart attack pancreatitis etc. etc.. Patient was encouraged to read the prescription insert and have coaching with their pharmacist and make an informed decision about taking medication and know that these medications are being prescribed with good intentions and we do not know how a patient would react to her medication. Sudden medications are FDA approved for weight loss and there is also off label use depending on patient's inability to afford medications in an attempt to lose weight D. Behavioral counseling was done to establish a relationship between food and an mood. Patient was provided information about local counseling and psychiatry and Dr Andres at [facility]. We would like to cover regular topics and build on low glycemic eating exercise mindful eating, using yoga and meditation along with deep breathing and connecting with friends and family. E. MASS PAT reviewed, Patient's current medications were reviewed and opinion was given on medication that can cause weight gain and can be substituted F. Patient was assessed for risk with obesity including and not limiting to atherosclerosis heart disease stroke kidney disease, restrictive lung disease, irritable bowel syndrome and overall mortality. Risk of developing prediabetes diabetes and metabolic syndrome was discussed G. Therapeutic plan: We have decided to make therapeutic plan which would include choosing wisely on calories restricting portion getting active, tracking weight, getting good quality sleep and working on time management H. Patient will follow up in (4) weeks for weight management Of note, some information is being carried forward from prior records for informational purposes only and is being cited so that efficiency, safety and quality of the patient's care is not compromised This note was prepared using voice recognition software and direct typing Please excuse inadvertent psychologist social or typing errors, or uncorrected word substitutions Although every attempt has been made by the provider to proofread this document, occasional misspellings and typographical errors may still be present Due to the previous pandemic, and the use of personal protective equipment (PPE) This may decrease voice recognition accuracy Inadvertent psychologist social errors may occur 12/18/2023 PAF (paroxysmal atrial fibrillation) (ICD-10 - I48.0) #Weight Management 12/18/2023 Labs reviewed from [facility] September 2023 thriving Given ongoing weight loss this may be a recurrent problem until her weight stabilizes 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 fitness technician and rechecking labs every 4 weeks or [...] minimum of 6 months The most recent [place] [employer] clinical endocrinologists and [place] [employer]in[employer] guidelines recommend patients who [...] software and direct typing Please excuse inadvertent psychologist social or typing errors, or uncorrected word substitutions Although every attempt has been made by the provider to proofread this document, occasional misspellings and typographical errors may still be present Due to the previous pandemic, and the use of personal protective equipment (PPE) This may decrease voice recognition accuracy Inadvertent psychologist social errors may occur 12/18/2023 NICHOLE (obstructive sleep apnea) (ICD-10 - G47.33) #Weight Management 12/18/2023 Labs reviewed from [facility] September 2023 thriving Given ongoing weight loss this may be a recurrent problem until her weight stabilizes 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 fitness technician and rechecking labs every 4 weeks or [...] minimum of 6 months The most recent [place] [employer] clinical endocrinologists and [place] [employer] guidelines recommend patients who [...] software and direct typing Please excuse inadvertent psychologist social or typing errors, or uncorrected word substitutions Although every attempt has been made by the provider to proofread this document, occasional misspellings and typographical errors may still be present Due to the previous pandemic, and the use of personal protective equipment (PPE) This may decrease voice recognition accuracy Inadvertent psychologist social errors may occur 10/16/2023 NICHOLE (obstructive sleep apnea) (ICD-10 - G47.33) #Weight Management 10/16/2023 Labs reviewed from [facility] September 2023 thriving Given ongoing weight loss this may be a recurrent problem until her weight stabilizes 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 fitness technician and rechecking labs every 4 weeks or [...] to be obese with a BMI of (45). Patient has class (3) obesity. We are a board certified obesity and weight management practice Patient has trialed behavioral modification, dietary restrictions and exercise for a minimum of 6 months The most recent [place] [employer] endocrinologists and [place] [employer] guidelines recommend patients who [...] mentioned above and not solely appetite suppression. We have discussed the mechanism of GLP-1's/GIP, dual incretins, appetitite suppressants I think this would be fantastic option for her given her metabolic workup and body composition We have discussed the risks and benefits and side effects including/and not limited to Sarcopenia, intestinal obstruction, constipation, nausea, lethargy, headache Discussed importance of protein consumption for muscle maintenance as well as strength and resistance training ,probiotics, B12 complex biotin , iron and other nutrients, To help avoid telogen effluvium We have discussed the lifelong requirement of nutritional supplementation And adherence to an exercise regimen as well as importance of follow-up The patient understands and agrees There is no history of medullary thyroid cancer or multiple endocrine neoplasia There is also no history of cardiovascular disease, hypertension, palpitations, or arrhythmias In the setting of potential stimulant/amphetam ine use such as phentermine We have also discussed risks and benefits, and the use of compounded medications to help offset the national shortages as well as financial implications vs trade name drugs Patient was reassured and welcomed to the practice. We discussed that we stress a hollistic medical approach with emphasis on lifestyle modification. Patient was informed that a healthy lifestyle with exercise and good eating habits can help reduce his risk of medical complications. He is explained that obesity increases his risk of diabetes, cardiovascular disease, or organ damage. We spent a lot of time discussing the relationship between food, exercise, sleep, mental health and obesity. Patient was counseled on the importance EATING local, organic food when possible. Patient was educated on clean 15 and dirty dozen. I provided information about reading books called The Food Rules by Jose Elias Mo and Eat Fat Get Lean by Dr Christopher Rojas. Self education is important in the journey for weight management. Patient was offered diagnostic testing. We want to measure visceral adiposity, advanced body composition, adverse lipids, fatty acid balance, risk for heart disease and atherosclerosis, markers of inflammation and genetic susceptibility. Patient was counseled on weight management and was advised to lose weight using A. Meal Replacement Products We discussed the lifelong requirement of nutritional supplementation and adherence to an exercise regimen as well as importance of dietary follow-up Patient was educated on the replacement products called optifast. This is a good way of taking fixed amount of calories. It has been shown in studies to be ineffective weight management tool. We also recommend maintaining adequate protein intake and muscle composition, 1.5mg/kg This however has to be coupled with lifestyle intervention as well as laboratory data and EKG monitoring. It is impossible to know how a person will tolerate complete meal replacement. The side effects of meal replacement and weight loss could include syncopal attacks, dizziness, gallstones, potential cholecystectomy, possible heart attack and even . The benefits of meal replacement would be potential weight loss but no guarantees can be made. Meal replacement products are not covered by insurance. Once the patient has bought these products we cannot return them B. Lifestyle management which includes several strategies as below 1. Eat a low carbohydrate good fat good protein diet. Eliminate refined carbohydrates from the diet. Continue blood sugar and sugared beverages. Eat local organic when possible. Cook your own meals. Read food labels. None about healthy snacks. Portion control and food with low glycemic index 2. Exercise regularly. Try to get at least 6000 steps a day. Use a predominant to track activity level. Consider using apps like Imagistx, myfitnesspal, lose it, stick as needed for self-monitoring and weight management. Consider group exercises. Consider hiring a personal financial representative. Regular exercise is carvalho to sustainable health and prevents as a buffer against weight regain 3. Sleep is most important for healing. Tried to sleep at least 8 hours a night. A good quality sleep needs a sleep ritual with ideal room temperature of around 68. It might help to take a shower and have no electronics in the room and sleep in a very dark room without artificial light. Start her sleep routine and get up early in the morning and go to bed on time 4. Make a social connection. Surround yourself with positive people with positive energy. Connect with friends and family. 5. Get into the habit of meditating and mindfulness while doing everything. 6. Go outside and connect with nature. C. Prescription medications Patient was educated on the use of prescription medications for medical weight loss. This is a growing list and includes phentermine, Topamax,Qsymia, contrave, belviq and saxenda. All prescription medications could have side effects including but not limited to kidney stones, seizure disorder cardiac arrhythmias heart attack pancreatitis etc. etc.. Patient was encouraged to read the prescription insert and have coaching with their pharmacist and make an informed decision about taking medication and know that these medications are being prescribed with good intentions and we do not know how a patient would react to her medication. Sudden medications are FDA approved for weight loss and there is also off label use depending on patient's inability to afford medications in an attempt to lose weight D. Behavioral counseling was done to establish a relationship between food and an mood. Patient was provided information about local counseling and psychiatry and Dr Andres at [facility]. We would like to cover regular topics and build on low glycemic eating exercise mindful eating, using yoga and meditation along with deep breathing and connecting with friends and family. E. MASS PAT reviewed, Patient's current medications were reviewed and opinion was given on medication that can cause weight gain and can be substituted F. Patient was assessed for risk with obesity including and not limiting to atherosclerosis heart disease stroke kidney disease, restrictive lung disease, irritable bowel syndrome and overall mortality. Risk of developing prediabetes diabetes and metabolic syndrome was discussed G. Therapeutic plan: We have decided to make therapeutic plan which would include choosing wisely on calories restricting portion getting active, tracking weight, getting good quality sleep and working on time management H. Patient will follow up in (4) weeks for weight management Of note, some information is being carried forward from prior records for informational purposes only and is being cited so that efficiency, safety and quality of the patient's care is not compromised This note was prepared using voice recognition software and direct typing Please excuse inadvertent psychologist social or typing errors, or uncorrected word substitutions Although every attempt has been made by the provider to proofread this document, occasional misspellings and typographical errors may still be present Due to the previous pandemic, and the use of personal protective equipment (PPE) This may decrease voice recognition accuracy Inadvertent psychologist social errors may occur PLAN OF TREATMENT Next Appt Details Provider Name:MADDIE REYES, 03/17/2024 01:45:00 PM, [address] [facility], [facility] [address], [place], [address], Insurance Providers Payer Name Payer Address Payer Phone Subscriber Number Group Number Insured Name Patient Relationship to Insured Coverage Start Date Coverage End Date [facility] [address] [place] [address] [phone] [id number] Corazon Cortez Self - patient is the insured MEDICAL (GENERAL) HISTORY Medical History History ICD Code diabetes mellitus graves disease afib gastroesophageal reflux disease (GERD) hyperlipidemia asthma sleep apnea
--- OUTSIDE RECORDS SUMMARY | 2024-02-05 07:58 | XMS_ITS | Patient Health Record ---
[facility] Address [address] [place] [address] Care Team Providers Care Compressor Operator Adjuster Name Role Phone Guanakito Tyler MD Primary Care Provider Lily Corral Unavailable [phone] Allergies Allergen (clinical drug ingredient) Drug/Non Drug Allergy documented on EMR Reaction Allergy Type Onset Date Status ibuprofen Advil on blood thinners Drug Allergy Active naproxen Aleve on blood thinners Drug Allergy Active Motrin on blood thinners Drug Allergy Active Results Component Value Reference Range Notes HEMOGLOBIN A1C (GLYCOHEMOGLO BIN) Reviewed date:02/07/2023 09:12:48 AM Interpretation: Performing Lab: Notes/Report: HEMOGLOBIN A1C % (HH) 5.7 HEMOGLOBIN A1C (GLYCOHEMOGLO BIN) Reviewed date:01/27/2024 09:20:34 AM Interpretation: Performing Lab: Notes/Report: TOTAL HEMOGLOBIN (HGBA1C) 5.8 HEMOGLOBIN A1C (GLYCOHEMOGLO BIN) Reviewed date:11/14/2023 10:19:34 AM Interpretation: Performing Lab: Notes/Report: TOTAL HEMOGLOBIN (HGBA1C) 5.5 HEMOGLOBIN A1C (GLYCOHEMOGLO BIN) Reviewed date:08/29/2023 09:18:07 AM Interpretation: Performing Lab: Notes/Report: HEMOGLOBIN A1C % (HH) 6.2 HEMOGLOBIN A1C (GLYCOHEMOGLO BIN) Reviewed date:04/18/2023 09:07:40 AM Interpretation: Performing Lab: Notes/Report: HEMOGLOBIN A1C % (HH) 5.6 Reason For Referral No Information Medications Medication SIG (Take, Route, Frequency, Duration) Notes Start Date End Date Status Vitamin C Active metFORMIN HCl 500 MG as directed Orally twice a day Not-Taking Furosemide 20 MG 1 tablet Orally Once a day for 30 day(s) Active Ciclopirox Olamine 0.77 % 1 application to affected area Externally to feet Twice a day for 30 days Not-Taking Vitamin D 25 MCG (1000 UT) 1 tablet Orally Once a day for 30 day(s) Active Clotrimazole-Betamet hasone 1-0.05 % 1 application to affected area Externally Twice a day to affected areas on feet for 30 days 05/10/2022 Not-Taking Lipitor 10 MG 1 tablet Orally Once a day for 30 day(s) Active Contrave 8-90 MG 1 tablet in the morning Orally Once a day Active methIMAzole 5 MG 1 tablet Orally Once a day for 30 day(s) every other day Active Ammonium Lactate 12 % 1 application to affected area Externally to feet Twice a day for 30 days Not-Taking Vitamin B Complex - as directed Orally Active Ketoconazole 2 % 1 application Externally Twice a day for 30 days PRN 09/30/2022 Active Magnesium Active Extra Depth Orthopedic Shoes (1 Pair) with Customized Heat Molded Multidensity Innersoles (3 Pair) as directed Dx: NIDDM/Polyneuropathy (E11.42), Hammertoe Foot Deformity (M20.41,M20.42), Preulcerative Skin Lesion(s) (L85.1 Active Mounjaro 15 MG/0.5ML as directed Subcutaneous Active Compression Stockings 20-30mm Hg 1 pair wear daily for 30 days Active Extra Depth Orthopedic Shoes (1 Pair) with Customized Heat Molded Multidensity Innersoles (3 Pair) as directed Dx: NIDDM/Polyneuropathy (E11.42), Hammertoe Foot Deformity (M20.41,M20.42), Preulcerative Skin Lesion(s) (L85.1 09/20/2020 Not-Taking Flecainide Acetate 100 MG as directed Orally 1 tab AM/1 tab PM Active Extra Depth Orthopedic Shoes (1 Pair) with Customized Heat Molded Multidensity Innersoles (3 Pair) as directed Dx: NIDDM/Polyneuropathy (E11.42), Hammertoe Foot Deformity (M20.41,M20.42), Preulcerative Skin Lesion(s) (L85.1 10/16/2021 Not-Taking Eliquis 5 MG as directed Orally 1 tab AM/1 ta b PM Active glipiZIDE 5 MG 1 tablet 30 minutes before breakfast Orally Once a day for 30 day(s) 2 tablets AM/2 tablets PM Not-Taking Cardizem CD 240 MG 1 capsule Orally Once a day for 30 day(s) Active Januvia 100 MG 1 tablet Orally Once a day for 30 day(s) Not-Taking Immunizations Vaccine Route Administration Date Status Comme nts COVID-19 Pfizer BioNTech Vaccine Unknown 03/13/2021 Administered First Dose: 04/28/2020 Second Dose: 05/19/2020 Influenza Unknown 11/25/2019 Administered Influenza Unknown 11/23/2020 Administered Influenza Unknown 12/25/2021 Administered Influenza Unknown 12/25/2022 Administered Social History Tobacco Use: Social History Observation Description Date Details (start date - stop date) Never Smoker NA - NA Tobacco Use/Smoking Question Answer Notes Are you a: nonsmoker Additional Findings: Tobacco Non-User Current no n-smoker Alcohol Screen Question Answer Notes Did you have a drink contain ing alcohol in the past year? Yes How often did you have a dri nk containing alcohol in the past year? Monthly or less (1 point) How often did you have 6 or more drinks on one occasion in the past year? Less than monthly (1 point) Points 2 Interpretation Negative Tobacco use other than smoking: Question Answer Notes Are you an other tobacco user? No Problems Problem Type SNOMED Code ICD Code Onset Dates Problem Status W/U Status Risk Notes Problem Acquired hammer toe of right foot (316887630646 9105) Other hammer toe(s) (acquired), right foot (M20.41) Active confirmed Problem Acquired hammer toe of left foot (055442268546 9103) Other hammer toe(s) (acquired), left foot (M20.42) Active confirmed Problem [id number] Hammer toe of le ft foot (M20.42) Active confirmed Problem [id number] Type 2 diabetes mellitus with polyneuropathy (E11.42) Active confirmed Vital Signs Blood pressure diastolic 64 mm Hg 01/27/2024 Height 5ft6in in 01/27/2024 Blood pressure systolic 110 mm Hg 01/27/2024 Weight 303 lbs 01/27/2024 BMI 48.9 kg/m2 01/27/2024 Encounters Encounter Location Date Provider Diagnosis [address] [phone] 02/07/2023 Lily Toledo Type 2 diabetes mellitus with polyneuropathy E11.42 ; Tinea pedis B35.3 ; Other hammer toe(s) (acquired), right foot M20.41 and Other hammer toe(s) (acquired), left foot M20.[address] [address] 04/18/2023 Lily Toledo Type 2 diabetes mellitus with polyneuropathy E11.42 ; Tinea pedis B35.3 ; Other hammer toe(s) (acquired), right foot M20.41 and Other hammer toe(s) (acquired), left foot M20.[address] [address] 06/27/2023 Lily Serranoa Type 2 diabetes mellitus with polyneuropathy E11.42 and Tinea pedis B35.[address] [address] 08/29/2023 Lily Serranoa Type 2 diabetes mellitus with polyneuropathy E11.42 ; Tinea pedis B35.3 and Edema, lower extremity R60.[address] [address] 11/14/2023 Lily Serranoa Type 2 diabetes mellitus with polyneuropathy E11.42 and Tinea pedis B35.[address] [address] 01/27/2024 Lily Serranoa Type 2 diabetes mellitus with polyneuropathy E11.42 Assessments Encounter Date Diagnosis (ICD Code) Assessment Notes Treatment Notes Treatment Clinical Notes Section Notes 02/07/2023 Type 2 diabetes mellitus with polyneuropathy (ICD-10 - E11.42) 04/18/2023 Type 2 diabetes mellitus with polyneuropathy (ICD-10 - E11.42) 06/27/2023 Tinea pedis (ICD-10 - B35.3) 06/27/2023 Type 2 diabetes mellitus with polyneuropathy (ICD-10 - E11.42) 08/29/2023 Type 2 diabetes mellitus with polyneuropathy (ICD-10 - E11.42) 11/14/2023 Type 2 diabetes mellitus with polyneuropathy (ICD-10 - E11.42) 01/27/2024 Type 2 diabetes mellitus with polyneuropathy (ICD-10 - E11.42) 04/18/2023 Tinea pedis (ICD-10 - B35.3) 11/14/2023 Tinea pedis (ICD-10 - B35.3) 08/29/2023 Tinea pedis (ICD-10 - B35.3) 02/07/2023 Tinea pedis (ICD-10 - B35.3) 04/18/2023 Other hammer toe(s) (acquired), right foot (ICD-10 - M20.41) Patient Educated with: DIABETIC FOOT CARE INSTRUCTIONS. pdf (DIABETIC FOOT CARE INSTRUCTIONS. pdf) 02/07/2023 Other hammer toe(s) (acquired), right foot (ICD-10 - M20.41) Patient Educated with: DIABETIC FOOT CARE INSTRUCTIONS. pdf (DIABETIC FOOT CARE INSTRUCTIONS. pdf) 02/07/2023 Other hammer toe(s) (acquired), left foot (ICD-10 - M20.42) 08/29/2023 Edema, lower extremity (ICD-10 - R60.0) 04/18/2023 Other hammer toe(s) (acquired), left foot (ICD-10 - M20.42) 06/27/2023 Other Plan Of Treatment Next Appt Details Provider Name:Lily freeman, 04/09/2024 09:30:00 AM, [address] [place], [address], Insurance Providers Payer Name Payer Address Payer Phone Subscriber Number Group Number Insured Name Patient Relationship to Insured Coverage Start Date Coverage End Date [facility] [id number] [place] [address] [phone] [id number] Corazon Cortez Self - patient is the insured Medical (General) History Medical History History ICD Code type II diabetes asthma Back,Hip,and Knee pain Broken bones Numbness Sciatica chronic sinusitis thyroid Chicken pox Graves disease A fib schachanceergs Covid 19 Surgical History Surgery Date(Month/Year) gall bladder Hernia Repair Cardioversion 09/2019 knee, meniscus sx left 11/30/2021
--- OUTSIDE RECORDS SUMMARY | 2024-02-05 07:58 | XMS_ITS ---
Author Organization [facility] Address [address] [place] [address] Care Team Providers Care Refrigerated Cargo Clerk Name Role Phone Guanakito Tyler MD Primary Care Provider Lily Corral Unavailable [phone] Allergies Allergen (clinical drug ingredient) Drug/Non Drug Allergy documented on EMR Reaction Allergy Type Onset Date Status ibuprofen Advil on blood thinners Drug Allergy Active naproxen Aleve on blood thinners Drug Allergy Active Motrin on blood thinners Drug Allergy Active REASON FOR VISIT At Risk Footcare, Skin Problem Medications Medication SIG (Take, Route, Frequency, Duration) Notes Start Date End Date Status Ammonium Lactate 12 % 1 application to affected area Externally to feet Twice a day for 30 days Not-Taking Extra Depth Orthopedic Shoes (1 Pair) with Customized Heat Molded Multidensity Innersoles (3 Pair) as directed Dx: NIDDM/Polyneuropathy (E11.42), Hammertoe Foot Deformity (M20.41,M20.42), Preulcerative Skin Lesion(s) (L85.1 10/16/2021 Not-Taking Extra Depth Orthopedic Shoes (1 Pair) with Customized Heat Molded Multidensity Innersoles (3 Pair) as directed Dx: NIDDM/Polyneuropathy (E11.42), Hammertoe Foot Deformity (M20.41,M20.42), Preulcerative Skin Lesion(s) (L85.1 09/20/2020 Not-Taking Januvia 100 MG 1 tablet Orally Once a day for 30 day(s) Not-Taking glipiZIDE 5 MG 1 tablet 30 minutes before breakfast Orally Once a day for 30 day(s) 2 tablets AM/2 tablets PM Not-Taking Compression Stockings 20-30mm Hg 1 pair wear daily for 30 days Active Clotrimazole-Betamet hasone 1-0.05 % 1 application to affected area Externally Twice a day to affected areas on feet for 30 days 05/10/2022 Not-Taking Ciclopirox Olamine 0.77 % 1 application to affected area Externally to feet Twice a day for 30 days Not-Taking Extra Depth Orthopedic Shoes (1 Pair) with Customized Heat Molded Multidensity Innersoles (3 Pair) as directed Dx: NIDDM/Polyneuropathy (E11.42), Hammertoe Foot Deformity (M20.41,M20.42), Preulcerative Skin Lesion(s) (L85.1 Active Ketoconazole 2 % 1 application Externally Twice a day for 30 days PRN 09/30/2022 Active methIMAzole 5 MG 1 tablet Orally Once a day for 30 day(s) every other day Active metFORMIN HCl 500 MG as directed Orally twice a day Not-Taking Flecainide Acetate 100 MG as directed Orally 1 tab AM/1 tab PM Active Cardizem CD 240 MG 1 capsule Orally Once a day for 30 day(s) Active Eliquis 5 MG as directed Orally 1 tab AM/1 ta b PM Active Vitamin D 25 MCG (1000 UT) 1 tablet Orally Once a day for 30 day(s) Active Furosemide 20 MG 1 tablet Orally Once a day for 30 day(s) Active Vitamin C Active Mounjaro 15 MG/0.5ML as directed Subcutaneous Active Lipitor 10 MG 1 tablet Orally Once a day for 30 day(s) Active Vitamin B Complex - as directed Orally Active Contrave 8-90 MG 1 tablet in the morning Orally Once a day Active Magnesium Active Social History Tobacco Use: Social History Observation Description Date Details (start date - stop date) Never Smoker NA - NA Tobacco Use/Smoking Question Answer Notes Are you a: nonsmoker Additional Findings: Tobacco Non-User Current no n-smoker Tobacco use other than smoking: Question Answer Notes Are you an other tobacco user? No Vital Signs Height 5ft6in in 11/14/2023 Weight 292 lbs 11/14/2023 BMI 47.12 kg/m2 11/14/2023 Blood pressure systolic 110 mm Hg 11/14/19 24 Blood pressure diastolic 64 mm Hg 024 Encounters Encounter Location Date Provider Diagnosis [facility] [place] [address] [place] [address] 11/14/2023 Lily Toledo Type 2 diabetes mellitus with polyneuropathy E11.42 and Tinea pedis B35.3 Assessments Encounter Date Diagnosis (ICD Code) Assessment Notes Treatment Notes Treatment Clinical Notes Section Notes 11/14/2023 Type 2 diabetes mellitus with polyneuropathy (ICD-10 - E11.42) 11/14/2023 Tinea pedis (ICD-10 - B35.3) Plan Of Treatment Next Appt Details Follow Up: 2 Months, Reason: Provider Name:Lily freeman, 04/09/2024 09:30:00 AM, [address] [place] [address], [id number], Procedure Notes * Category Sub-Category Detail Notes Keratoma Treatment Parring or Cutting o f Benign Hyperkeratotic Lesion(s) 42413 ( 2-4 Lesions ) - The Benign hyperkeratotic lesions, as described above were pared, and/or cut utilizing a sterile 15 blade, tissue nippers, and/or dremel Nail Reduction Nail Reduction Trimming of dyst rophic nails performed to reduce/remove overall nail length and girth, by manual and electrical means with use of a nail nipper and/or dremel, to more viable healthy nail plate or bed tissue 6-10 (G0127) Progress Notes * Lexi CORTEZOB: [birth year] (53 yo F)Acc No.[id number]:11/14/2023 Progress Note Patient:?Ran Cortezelle Provider:?Lily Toledo DPM :1970???Age:53 Y???Sex:Female D ate:11/14/2023 Address: [address] [place] Pcp:Guanakito Tyler MD Subjective: * Chief Complaints: * ???At Risk FootcareSkin Prob trudi * HPI: ???At Risk footcare:?Pt States Last PCP Visit:?Date?10/09/2023 ???Skin problems:?Nature:?dryness , scaling.?Location:?B/L .?Treatments:?Medication (Ciclopirox Olamine 0.77 Cream).? * ROS:?General/Constitutional:?Nausea?denies.?Vomiting?denies.?Hunger Thirst?denies.?Loss appetite?denies.?Chills?denies.?Fatigue?denies.?Fever?denies.?Night Sweats?denies.?Unexplained weight loss?denies.?Unexplained weight gain?denies.?HEENTM:?Dentures?denies.?Dizziness?denies.?Glasses/contacts?admits.?Retinopathy?de nies.?Blurred/double vision?denies.?TMJ?denies.?Discharge/drainage?denies.?Implants?denies.?Sore throat?denies.?Dental implants?denies.?Hard of hearing ?denies.?Difficulty chewing/swallowing/speaking?denies.?Nose bleeds?denies.?Sore mouth?denies.?Respiratory:?On Oxygen?denies.?Pneumonia/pleurisy?denies.?Bronchitis?denies.?Emphysema?denies.?C oughing?denies.?Cough blood?denies.?Shortness of breath?denies.?Wheezing?denies.?Cardiovascular:?Pacemaker?denies.?MVP?denies.?WPW?denies.?CHF?denies.?Heart attack?denies.?Septal defect?denies.?Rapid beat?denies.?Chest pain ?denies.?Atrial Fib.?denies.?Murmur/Palpitations?denies.?Gastrointestinal:?Hemorrhoids?denies.?Stomach/Abdominal pain?denies.?Dark blood stool?denies.?Irritable bowel ?denies.?Constipation?denies.?Diarrhea?denies.?Hematology:?Swelling?admits.?Clots?denies.?Varicose Veins?denies.?Bruising?denies.?Bleeding problem?denies.?Genitourinary:?Blood urine?denies.?Frequent/Painfu/urination/bladder control?denies.?Kidney stones?denies.?Infection (UTI)?denies.?Nephropathy?denies.?sex trans dis (STD)?denies.?Prostate?denies.?Musculoskeletal:?Hammertoes?denies.?Bunions?denies.?Back Pain?denies.?Muscle Cramps/ Resting?admits.?Muscle cramps / walking?denies.?Generalized aches and pains?denies.?Weakness?denies.?Integ.:?Shah?denies.?Scars?denies.?Corns/calluses?denies.?Ingrown nails?denies.?Painful nails?denies.?Open Sores?denies.?Rashes?denies.?Neurologic:?Difficulty sleeping?denies.?Brain disorder?denies.?Numbness?admits.?Balance trouble?denies.?Confusion?denies.?Fainting/blackouts?denies.?Tingling?admits.?Tr emors?denies.? * Medical History:? * Surgical History:?gall bladd er Hernia Repair Cardioversion 09/2019knee, meniscus sx left 11/30/2021 * Hospitalization/Major Diagno stic Procedure:?Denies Past Hospitalization * Family History:?Mother: dece ased, foot problems, diagnosed with Family history of arthritis, Diabetic - NIDDM, Unspecified essential hypertension, Unspecified heart disease, Other malignant neoplasm of unspecified site.?Father: , diagnosed with Diabetic - NIDDM.? * Social History:?Tobacco Use:?Tobacco Use/Smoking?Are you a:?nonsmoker ?Additional Findings: Tobacco Non-User?Current non-smoker ?Tobacco use other than smoking?Are you an other tobacco user??No ???Miscellaneous:?Caffeine: yes, unsweetened tea -1 soda a day. ?Children: yes, 1. ?Exercise: yes, walking. ?Marital status: . ?Occupation: [employer]. * Medications:?TakingContrave 8-90 MG Tablet Extended Release 12 Hour 1 tablet in the morning Orally Once a dayVitamin B Complex - Tablet as directed Orally Magnesium Mounjaro 15 MG/0.5ML Solution Pen-injector as directed Subcutaneous Vitamin C Furosemide 20 MG Tablet 1 tablet Orally Once a dayVitamin D 25 MCG (1000 UT) Tablet 1 tablet Orally Once a dayLipitor 10 MG Tablet 1 tablet Orally Once a dayFlecainide Acetate 100 MG Tablet as directed Orally , Notes: 1 tab AM/1 tab PMEliquis 5 MG Tablet as directed Orally , Notes: 1 tab AM/1 tab PMCardizem CD 240 MG Capsule Extended Release 24 Hour 1 capsule Orally Once a daymethIMAzole 5 MG Tablet 1 tablet Orally Once a day, Notes: every other dayKetoconazole 2 % Cream 1 application Externally Twice a day, Notes: PRNExtra Depth Orthopedic Shoes (1 Pair) with Customized Heat Molded Multidensity Innersoles (3 Pair) as directed Dx: NIDDM/Polyneuropathy (E11.42), Hammertoe Foot Deformity (M20.41,M20.42), Preulcerative Skin Lesion(s) (L85.1Compression Stockings 20-30mm Hg closed toe- knee high 1 pair wear dailyTaking Contrave 8-90 MG Tablet Extended Release 12 Hour 1 tablet in the morning Orally Once a dayTaking Vitamin B Complex - Tablet as directed Orally Taking Magnesium Taking Mounjaro 15 MG/0.5ML Solution Pen-injector as directed Subcutaneous Taking Vitamin C Taking Furosemide 20 MG Tablet 1 tablet Orally Once a dayTaking Vitamin D 25 MCG (1000 UT) Tablet 1 tablet Orally Once a dayTaking Lipitor 10 MG Tablet 1 tablet Orally Once a dayTaking Flecainide Acetate 100 MG Tablet as directed Orally , Notes: 1 tab AM/1 tab PMTaking Eliquis 5 MG Tablet as directed Orally , Notes: 1 tab AM/1 tab PMTaking Cardizem CD 240 MG Capsule Extended Release 24 Hour 1 capsule Orally Once a dayTaking methIMAzole 5 MG Tablet 1 tablet Orally Once a day, Notes: every other dayTaking Ketoconazole 2 % Cream 1 application Externally Twice a day, Notes: PRNTaking Extra Depth Orthopedic Shoes (1 Pair) with Customized Heat Molded Multidensity Innersoles (3 Pair) as directed Dx: NIDDM/Polyneuropathy (E11.42), Hammertoe Foot Deformity (M20.41,M20.42), Preulcerative Skin Lesion(s) (L85.1Taking Compression Stockings 20-30mm Hg closed toe- knee high 1 pair wear dailyNot-Taking/PRNmetFORMIN HCl 500 MG Tablet as directed Orally twice a dayCiclopirox Olamine 0.77 % Cream 1 application to affected area Externally to feet Twice a dayClotrimazole-Betamethasone 1-0.05 % Cream 1 application to affected area Externally Twice a day to affected areas on feetExtra Depth Orthopedic Shoes (1 Pair) with Customized Heat Molded Multidensity Innersoles (3 Pair) as directed Dx: NIDDM/Polyneuropathy (E11.42), Hammertoe Foot Deformity (M20.41,M20.42), Preulcerative Skin Lesion(s) (L85.1Extra Depth Orthopedic Shoes (1 Pair) with Customized Heat Molded Multidensity Innersoles (3 Pair) as directed Dx: NIDDM/Polyneuropathy (E11.42), Hammertoe Foot Deformity (M20.41,M20.42), Preulcerative Skin Lesion(s) (L85.1glipiZIDE 5 MG Tablet 1 tablet 30 minutes before breakfast Orally Once a day, Notes: 2 tablets AM/2 tablets PMJanuvia 100 MG Tablet 1 tablet Orally Once a dayAmmonium Lactate 12 % Cream 1 application to affected area Externally to feet Twice a dayMedication List reviewed and reconciled with the patientNot-Taking/PRN metFORMIN HCl 500 MG Tablet as directed Orally twice a dayNot-Taking/PRN Ciclopirox Olamine 0.77 % Cream 1 application to affected area Externally to feet Twice a dayNot-Taking/PRN Clotrimazole-Betamethasone 1-0.05 % Cream 1 application to affected area Externally Twice a day to affected areas on feetNot-Taking/PRN Extra Depth Orthopedic Shoes (1 Pair) with Customized Heat Molded Multidensity Innersoles (3 Pair) as directed Dx: NIDDM/Polyneuropathy (E11.42), Hammertoe Foot Deformity (M20.41,M20.42), Preulcerative Skin Lesion(s) (L85.1Not-Taking/PRN Extra Depth Orthopedic Shoes (1 Pair) with Customized Heat Molded Multidensity Innersoles (3 Pair) as directed Dx: NIDDM/Polyneuropathy (E11.42), Hammertoe Foot Deformity (M20.41,M20.42), Preulcerative Skin Lesion(s) (L85.1Not-Taking/PRN glipiZIDE 5 MG Tablet 1 tablet 30 minutes before breakfast Orally Once a day, Notes: 2 tablets AM/2 tablets PMNot-Taking/PRN Januvia 100 MG Tablet 1 tablet Orally Once a dayNot-Taking/PRN Ammonium Lactate 12 % Cream 1 application to affected area Externally to feet Twice a dayMedication List reviewed and reconciled with the patient * Allergies:?Advil: on blood t hinnersAleve: on blood thinnersMotrin: on blood thinnersyes[Allergies Verified] Objective: * Vitals:?Ht: 5ft6in, Wt:292, BMI:47.12, Shoe size: 11W, BP:110/64 mm Hg, BS: not taken, Ht-cm: 167.64 cm, Wt-k.45 kg. * ???Past Orders: ???Lab:HEMOGLOBIN A1C (GLYCO HEMOGLOBIN) (Order Date - 10/20/2023) (Collection Date - 10/20/2023) ? Value Reference Range ?TOTAL HEMOGLOBIN (HGBA1C) 5.5 * Examination: ???Ophthalmology Referral: ?DIABETES EYE EXAM?Neurological: ?SENSORY:?Neurological exam demonstrates, reduced light touch sensation, reduced sharp/dull discrimination , reduced vibration sensation, in a stocking fashion, B/L, 5.07 monofilament test performed at plantar aspects of 5 varied sites per foot shows sensation, reduced, B/L.?Nails: ?NAILS are:? 1-5 B/L, Elongated, overgrown, dystrophic.?Dermatologic: ?SKIN FINDINGS:? Skin exam reveals Keratotic lesion(s) located at, Medial plantar, TA, T5? Skin shows, sign(s) of, erythema, scaling, in a moccasin fashion, no fissure(s) present, B/L.?Orthopedic: ?DIGITAL DEFORMITIES:?Digital contracture, PIPJ, 2-5 B/L, incompl-reducible to push-up test, no over, nor underlapping, with evidence of shoe producing skin irritation.?General Examination: ?FOOT EXAM:?Footwear Evaluation?Vascular: ?DP PULSES(B):?3/4, B/L.?PT PULSES(B):?3/4, B/L.?CAPILLARY FILL TIME:?immediate, all digits, B/L.?TROPHIC CONDITION-TEXTURE/ELASTICITY/TURGOR/HAIR GROWTH(B):?normal, B/L.?TEMPERTURE GRADIENT(C):?normal, warm to cool, proximal to distal, B/L, B/L.? Assessment: * Assessment: 1.?Type 2 diabetes mellitus with polyneuropathy - E11.42?2.?Tinea pedis - B35.3 (Primary), Acute problem, Uncomplicated (3)? Plan: * Treatment: * Procedures:?Keratoma Treatment:?Parring or Cutting of Benign Hyperkeratotic Lesion(s)?09070 ( 2-4 Lesions ) - The Benign hyperkeratotic lesions, as described above were pared, and/or cut utilizing a sterile 15 blade, tissue nippers, and/or dremel.?Nail Reduction:?Nail Reduction?Trimming of dystrophic nails performed to reduce/remove overall nail length and girth, by manual and electrical means with use of a nail nipper and/or dremel, to more viable healthy nail plate or bed tissue 6-10 (G0127).? * Procedure Codes:?G0127 YASSINE ING DYSTROPHIC NAILS ANY #, Modifiers: XS 52174 TRIM SKIN LESIONS, 2 TO 4, Modifiers: XS * Preventive Medicine:? ??Counseling:?Discussion:?-13: Office or other outpatient visit for the evaluation and management of an established patient, which required a medically appropriate history and/or examination and LOW level of DECISION MAKING for: 1 STABLE ACUTE UNCOMPLICATED PROBLEM, 2 OR MORE MINOR PROBLEMS, OR 1 STABLE CHRONIC PROBLEM, THAT POSE(S) A LOW RISK FOR MORBIDITY/MORTALITY. The visit on the day of the encounter encompassed interpreting the data and educating the patient as to the nature of their condition, treatment options available according to their individual PMH, meds, allergies, and overall health/living conditions, as well as any potential risks or complications that may occur from a failure to adhere to, and participate in, the recommended course of therapy. The discussion included a complete verbal, and/or written explanation of the examination results, any x-rays taken, the proposed diagnosis, and outline of the treatment plan. A schedule for future care needs was also explained. The patient verbalized an understanding of the instructions at this time and agreed to be an active participant in their treatment. If the patient should think of any questions or concerns after the visit, I have encouraged the patient to call the office.?Tinea Pedis:?The patient was counseled on the diagnosis, potential etiologies, and treatment options for their skin condition. We discussed the risks and benefits of each option from performing no treatment, to utilizing OTC topical skin creams, prescription topical creams, customized compounded topical medications, and, if necessary, to utilize oral antifungal therapy. We discussed the advantages and disadvantages of each possible treatment and importance for adherence to all the recommended therapies for optimum success and avoid potential complications such as open sore/infection/possible hospitalization. We discussed the potential effectiveness of each topical preparation as well as each ones possible side effects and/or patient medication interactions if oral therapy is selected. Patient questions re: the advantages and disadvantages of each treatment choice, medication use/dosage, successful outcomes, and application consistency were reviewed and the patient verbalized that all answers were clearly understood. The patient was told they can help alleviate symptoms by utilizing moisture absorbant innersoles with activated charcoal and baking soda, applying antifungal sprays daily, aerating toe web spaces at night by putting cotton or lambs wool between the toes, alternating shoe gear daily if possible so they can dry out, changing socks at least once during the day, wearing well-ventilated shoes or sandals. The patient has decided to apply antifungal skin creams to their feet as directed. Rx was sent to their pharmacy at the time of visit.? * Follow Up:?2 Months * Images: * Sign off status: Completed true * Provider:?Lily Toledo DPM Date:? Generated for Jeri hauser/Flores/Breannaitting on:?02/05/2024 07:57 AM EST History and Physical Notes * HPI (History of Present Illness) Category Sub-Category Detail Notes Category Not es Skin problems Nature: dryness , scaling Location: B/L Treatments: Medication (Ciclopir ox Olamine 0.77 Cream) At Risk footcare Pt States Last PCP Visit: Date: 4 Examination Category Sub-Category Detail Notes Category Not es Neurological SENSORY: Neurological exa m demonstrates, reduced light touch sensation, reduced sharp/dull discrimination , reduced vibration sensation, in a stocking fashion, B/L, 5.07 monofilament test performed at plantar aspects of 5 varied sites per foot shows sensation, reduced, B/L Dermatologic SKIN FINDINGS: Skin exam reveal s Keratotic lesion(s) located at, Medial plantar, TA, T5 Skin shows, sign(s) of, erythema, scaling, in a moccasin fashion, no fissure(s) present, B/L Orthopedic DIGITAL DEFORMITIES: Digital con tracture, PIPJ, 2-5 B/L, incompl-reducible to push-up test, no over, nor underlapping, with evidence of shoe producing skin irritation General Examination FOOT EXAM: Lower Extrem ity Neurological Exam performed:: Yes Footwear Evaluation Footwear Evaluation performe d:: Yes Ophthalmology Referral DIABETES EYE EXAM Diabetic Retinopa thy Screening:: Yes Findings of Diabetic Eye Exam:: no retin opathy Vascular DP PULSES(B): 3/4, B/L PT PULSES(B): 3/4, B/L CAPILLARY FILL TIME: immediate, all digi ts, B/L TEMPERTURE GRADIENT(C): normal, warm to cool, proximal to distal, B/L, B/L TROPHIC CONDITION-TEXTURE/ELASTICITY/TURGOR/HAIR GROWTH(B): normal, B/L Nails NAILS are: 1-5 B/L, Elongated, overgrow n, dystrophic
--- OUTSIDE RECORDS SUMMARY | 2024-02-05 07:58 | XMS_ITS ---
[facility] Address [address] [place] [address] Care Team Providers Care Statistics Professor Name Role Phone Guanakito Tyler MD Primary Care Provider Lily Corral Unavailable [phone] Allergies Allergen (clinical drug ingredient) Drug/Non Drug Allergy documented on EMR Reaction Allergy Type Onset Date Status ibuprofen Advil on blood thinners Drug Allergy Active naproxen Aleve on blood thinners Drug Allergy Active Motrin on blood thinners Drug Allergy Active REASON FOR VISIT PCP: 04/23/23, At Risk Footcare, Skin Problem, Toe Irritation, Swelling Medications Medication SIG (Take, Route, Frequency, Duration) Notes Start Date End Date Status Ammonium Lactate 12 % 1 application to affected area Externally to feet Twice a day for 30 days Not-Taking Januvia 100 MG 1 tablet Orally Once a day for 30 day(s) Not-Taking glipiZIDE 5 MG 1 tablet 30 minutes before breakfast Orally Once a day for 30 day(s) 2 tablets AM/2 tablets PM Not-Taking Extra Depth Orthopedic Shoes (1 Pair) with Customized Heat Molded Multidensity Innersoles (3 Pair) as directed Dx: NIDDM/Polyneuropathy (E11.42), Hammertoe Foot Deformity (M20.41,M20.42), Preulcerative Skin Lesion(s) (L85.1 10/16/2021 Not-Taking Compression Stockings 20-30mm Hg 1 pair wear daily for 30 days Active Extra Depth Orthopedic Shoes (1 Pair) with Customized Heat Molded Multidensity Innersoles (3 Pair) as directed Dx: NIDDM/Polyneuropathy (E11.42), Hammertoe Foot Deformity (M20.41,M20.42), Preulcerative Skin Lesion(s) (L85.1 09/20/2020 Not-Taking Extra Depth Orthopedic Shoes (1 Pair) with Customized Heat Molded Multidensity Innersoles (3 Pair) as directed Dx: NIDDM/Polyneuropathy (E11.42), Hammertoe Foot Deformity (M20.41,M20.42), Preulcerative Skin Lesion(s) (L85.1 Active Ketoconazole 2 % 1 application Externally Twice a day for 30 days PRN 09/30/2022 Active Clotrimazole-Betamet hasone 1-0.05 % 1 application to affected area Externally Twice a day to affected areas on feet for 30 days 05/10/2022 Not-Taking Ciclopirox Olamine 0.77 % 1 application to affected area Externally to feet Twice a day for 30 days Not-Taking metFORMIN HCl 500 MG as directed Orally twice a day Active Cardizem CD 240 MG 1 capsule Orally Once a day for 30 day(s) Active Eliquis 5 MG as directed Orally 1 tab AM/1 ta b PM Active Flecainide Acetate 100 MG as directed Orally 1 tab AM/1 tab PM Active methIMAzole 5 MG 1 tablet Orally Once a day for 30 day(s) every other day Active Lipitor 10 MG 1 tablet Orally Once a day for 30 day(s) Active Vitamin D 25 MCG (1000 UT) 1 tablet Orally Once a day for 30 day(s) Active Furosemide 20 MG 1 tablet Orally Once a day for 30 day(s) Active Vitamin C Active Mounjaro 15 MG/0.5ML as directed Subcutaneous Active Contrave 8-90 MG 1 tablet in the morning Orally Once a day Active Magnesium Active Vitamin B Complex - as directed Orally Active Social History Tobacco Use: Social History [...] user? No Vital Signs Height 5ft6in in 08/29/2023 Weight 287 lbs 08/29/2023 BMI 46.32 kg/m2 08/29/2023 Blood pressure systolic 124 mm Hg 08/29/19 24 Blood pressure diastolic 72 mm Hg 024 Encounters Encounter Location Date Provider Diagnosis [facility] [address] [address] 08/29/2023 Lily Toledo Type 2 diabetes mellitus with polyneuropathy E11.42 ; Tinea pedis B35.3 and Edema, lower extremity R60.0 Assessments Encounter Date Diagnosis (ICD Code) Assessment Notes Treatment Notes Treatment Clinical Notes Section Notes 08/29/2023 Type 2 diabetes mellitus with polyneuropathy (ICD-10 - E11.42) 08/29/2023 Tinea pedis (ICD-10 - B35.3) 08/29/2023 Edema, lower extremity (ICD-10 - R60.0) Plan Of Treatment Medication Medication Name Sig Start Date Stop Date Notes Compression Stockings 20-30mm Hg 1 pair wear daily for 30 days Next Appt Details Follow Up: 2 Months, Reason: Provider Name:Lily freeman, 04/09/2024 09:30:00 AM, [address] [place] [address], [id number], Procedure Notes * Category Sub-Category Detail Notes Keratoma Treatment Parring or Cutting o f Benign Hyperkeratotic Lesion(s) 99134 ( 2-4 Lesions ) - The Benign [...] * Lexi CORTEZOB: [birth year] (53 yo F)Acc No.[id number]:08/29/2023 Progress Note Patient:?Corazon Cortez Provider:?Lily Toledo DPM :1970???Age:53 Y???Sex:Female D ate:08/29/2023 Address: [place] Pcp:Guanakito Tyler MD Subjective: * Chief Complaints: * ??? PCP: 04/23/23At Risk [place] tcareSkin ProblemToe IrritationSwelling * HPI: ???At Risk footcare:?Pt States Last PCP Visit:?Date?08/04/2023 ???Skin problems:?Nature:?dryness , scaling.?Location:?B/L .?Treatments:?Medication (Ciclopirox Olamine 0.77 Cream).?Swelling:?Location:?Both feet/leg.?Duration:?several weeks.?Course:?worse.? * ROS:?General/Constitutional:?Nausea?denies, denies.?Vomiting?denies, denies.?Hunger Thirst?denies, denies.?Loss appetite?denies, denies.?Chills?denies, denies.?Fatigue?denies, denies.?Fever?denies, denies.?Night Sweats denies, denies.?Unexplained weight loss?denies, denies.?Unexplained weight gain?denies, denies.?HEENTM:?Dentures?denies, denies.?Dizziness?denies, denies.?Glasses/contacts?admits, admits.?Retinopathy?denies, denies.?Blurred/double vision?denies, denies.?TMJ?denies, denies.?Discharge/drainage?denies, denies.?Implants?denies, denies.?Sore throat?denies, denies.?Dental implants?denies, denies.?Hard of hearing ?denies, denies.?Difficulty chewing/swallowing/speaking?denies, denies.?Nose bleeds?denies, denies.?Sore mouth?denies, denies.?Respiratory:?On Oxygen?denies, denies.?Pneumonia/pleurisy?denies, denies.?Bronchitis?denies, denies.?Emphysema?denies, denies.?Coughing?denies, denies.?Cough blood?denies, denies.?Shortness of breath?denies, denies.?Wheezing?denies, denies.?Cardiovascular:?Pacemaker?denies, denies.?MVP?denies, denies.?WPW?denies, denies.?CHF?denies, denies.?Heart attack?denies, denies.?Septal defect?denies, denies.?Rapid beat?denies, denies.?Chest pain ?denies, denies.?Atrial Fib.?denies, denies.?Murmur/Palpitations?denies, denies.?Gastrointestinal:?Hemorrhoids?denies, denies.?Stomach/Abdominal pain?denies, denies.?Dark blood stool?denies, denies.?Irritable bowel ?denies, denies.?Constipation?denies, denies.?Diarrhea?denies, denies.?Hematology:?Swelling?admits, admits.?Clots?denies, denies.?Varicose Veins?denies, denies.?Bruising?denies, denies.?Bleeding problem?denies, denies.?Genitourinary:?Blood urine?denies, denies.?Frequent/Painfu/urination/bladder control?denies, denies.?Kidney stones?denies, denies.?Infection (UTI)?denies, denies.?Nephropathy?denies, denies.?sex trans dis (STD)?denies, denies.?Prostate?denies, denies.?Musculoskeletal:?Hammertoes?denies, denies.?Bunions?denies, denies.?Back Pain?denies, denies.?Muscle Cramps/ Resting?admits, admits.?Muscle cramps / walking?denies, denies.?Generalized aches and pains?denies, denies.?Weakness?denies, denies.?Integ.:?Shah?denies, denies.?Scars?denies, denies.?Corns/calluses?denies, denies.?Ingrown nails?denies, denies.?Painful nails?denies, denies.?Open Sores?denies, denies.?Rashes?denies, denies.?Neurologic:?Difficulty sleeping?denies, denies.?Brain disorder?denies, denies.?Numbness?admits, admits.?Balance trouble?denies, denies.?Confusion?denies, denies.?Fainting/blackouts?denies, denies.?Tingling?admits, admits.?Tremors?denies, denies.? * Medical History:? * Surgical History:?gall bladd [...] than smoking?Are you an other tobacco user??No ???Drugs/Alcohol:?Drugs?Have you used drugs other than those for medical reasons in the past 12 months??No ?Alcohol Screen?Did you have a drink containing alcohol in the past year??Yes ?How often did you have a drink containing alcohol in the past year??Monthly or less (1 point) ?How often did you have 6 or more drinks on one occasion in the past year??Less than monthly (1 point) ?Points?2 ?Interpretation?Negative ???Miscellaneous:?Caffeine: yes, unsweetened tea -1 soda a [...] 24 Hour 1 capsule Orally Once a daymetFORMIN HCl 500 MG Tablet as directed Orally twice a daymethIMAzole 5 MG Tablet 1 tablet Orally Once a day, Notes: every other dayKetoconazole 2 % Cream 1 application Externally Twice a day, Notes: PRNExtra Depth Orthopedic Shoes (1 Pair) with Customized Heat Molded Multidensity Innersoles (3 Pair) as directed Dx: NIDDM/Polyneuropathy (E11.42), Hammertoe Foot Deformity (M20.41,M20.42), Preulcerative Skin Lesion(s) (L85.1Taking Contrave 8- 90 MG Tablet Extended Release 12 Hour 1 [...] Hour 1 capsule Orally Once a dayTaking metFORMIN HCl 500 MG Tablet as directed Orally twice a dayTaking methIMAzole 5 MG Tablet 1 tablet Orally Once a day, Notes: every other dayTaking Ketoconazole 2 % Cream 1 application Externally Twice a day, Notes: PRNTaking Extra Depth Orthopedic Shoes (1 Pair) with Customized Heat Molded Multidensity Innersoles (3 Pair) as directed Dx: NIDDM/Polyneuropathy (E11.42), Hammertoe Foot Deformity (M20.41,M20.42), Preulcerative Skin Lesion(s) (L85.1Not-Taking/PRNCiclopirox Olamine 0.77 % Cream 1 application to affected area Externally to feet Twice a dayClotrimazole- Betamethasone 1-0.05 % Cream 1 application to affected [...] List reviewed and reconciled with the patientNot-Taking/PRN Ciclopirox Olamine 0.77 % Cream 1 application to affected area Externally to feet Twice a dayNot-Taking/PRN Clotrimazole- Betamethasone 1-0.05 % Cream 1 application to affected [...] blood thinnersyes[Allergies Verified] Objective: * Vitals:?Ht: 5ft6in, Wt:287, BMI:46.32, Shoe size: 11W, BP:124/72 mm Hg, BS: 128, Ht-cm: 167.64 cm, Wt-k.18 kg. * ???Past Orders: ???Lab:HEMOGLOBIN A1C (GLYCO HEMOGLOBIN) (Order Date - 06/25/2023) (Collection Date - 06/25/2023) ? Value Reference Range ?HEMOGLOBIN A1C % (HH) 6.2 * Examination: ???Ophthalmology Referral: ?DIABETES EYE EXAM?Neurological: [...] skin irritation.?General Examination: ?FOOT EXAM:?Footwear Evaluation?Vascular: ?DP PULSES:?3/4, B/L.?PT PULSES:?3/4, B/L.?CAPILLARY FILL TIME:?immediate, all digits, B/L.?EDEMA:?2/4 , B/L.?HAILE'S SIGN:?absent, B/L.?PALPABLE CORDS:?absent, B/L.? Assessment: * Assessment: 1.?Type 2 diabetes mellitus with polyneuropathy - E11.42?2.?Tinea pedis - B35.3 (Primary), Acute problem, Uncomplicated (3)?3.?Edema, lower extremity - R60.0, Acute problem, Uncomplicated (3), Rx Management (4)? Plan: * Treatment: * Procedures:?Keratoma Treatment:?Parring or Cutting of Benign Hyperkeratotic Lesion(s)?64620 ( 2-4 Lesions ) - The Benign [...] ING DYSTROPHIC NAILS ANY #, Modifiers: XS [id number] TRIM SKIN LESIONS, 2 TO 4, Modifiers: [...] have encouraged the patient to call the office.?Edema:?I explained to the patient the possible etiologies for Edema, including genetic, surgery, infection, medications, heart disease, kidney disease, excess dietary salt, and various cancer treatments. We discussed the risks/benefits of the treatment options available including rest, elevation, OTC compression stockings, Rx compression stockings, Unna Boot application, diet modification to limit salt intake, and Rx segmental compression boots provided the absence of CHD in the patients medical history. The advantages and disadvantages of each option were discussed and the patients questions re: risk of infection(cellulitis), medications, diet, and the daily use of compression stockings(not to be worn at night), and consistency in these home treatment regimens for optimal success were answered to their verbally confirmed satisfaction. Given the risk for vessel clotting disease, the patient was instructed to go immediately to the ER of hospital should they experience any calf pain, SOB, or discomfort. Any changes to the patients medication regimen will be performed by the PCP or patients kidney/heart/cancer specialist. The patient has elected to receive compression stockings. Such were Rxed today with instructions for use.? * Follow Up:?2 Months * Images: * Sign off status: Completed true * Provider:?Lily Toledo DPM Date:?06/2023 Generated for Jeri hauser/Flores/Breannaitting on:?02/05/2024 07:57 AM EST History and Physical Notes * HPI (History of Present Illness) Category Sub-Category Detail Notes Category Not es Skin problems Nature: dryness , scaling Location: B/L Treatments: Medication (Ciclopir ox Olamine 0.77 Cream) At Risk footcare Pt States Last PCP Visit: Date: 4 Swelling Location: Both feet/leg Duration: several weeks Course: worse Examination Category Sub-Category Detail Notes Category Not [...] FILL TIME: immediate, all digi ts, B/L EDEMA(C): 2/4 , B/L HAILE'S SIGN: absent, B/L PALPABLE CORDS: absent, B/L Nails NAILS are: 1-5 B/L, Elongated, overgrow n, dystrophic
--- OUTSIDE RECORDS SUMMARY | 2024-02-05 07:58 | XMS_ITS ---
[facility] Address [address] [place] [address] Care Team Providers Care Hydrometallurgical Engineer Name Role Phone Guanakito Tyler MD Primary Care Provider Lily Corral Unavailable [phone] Allergies Allergen (clinical drug ingredient) Drug/Non Drug Allergy documented on EMR Reaction Allergy Type Onset Date Status ibuprofen Advil on blood thinners Drug Allergy Active naproxen Aleve on blood thinners Drug Allergy Active Motrin on blood thinners Drug Allergy Active REASON FOR VISIT At Risk Footcare Medications Medication SIG (Take, Route, Frequency, Duration) Notes Start Date End Date Status metFORMIN HCl 500 MG as directed Orally twice a day Not-Taking Ciclopirox Olamine 0.77 % 1 application to affected area Externally to feet Twice a day for 30 days Not-Taking Ketoconazole 2 % 1 application Externally Twice a day for 30 days PRN 09/30/2022 Active Extra Depth Orthopedic Shoes (1 Pair) with Customized Heat Molded Multidensity Innersoles (3 Pair) as directed Dx: NIDDM/Polyneuropathy (E11.42), Hammertoe Foot Deformity (M20.41,M20.42), Preulcerative Skin Lesion(s) (L85.1 Active Compression Stockings 20-30mm Hg 1 pair wear daily for 30 days Active Lipitor 10 MG 1 tablet Orally Once a day for 30 day(s) Active methIMAzole 5 MG 1 tablet Orally Once a day for 30 day(s) every other day Active Flecainide Acetate 100 MG as directed Orally 1 tab AM/1 tab PM Active Eliquis 5 MG as directed Orally 1 tab AM/1 ta b PM Active Cardizem CD 240 MG 1 capsule Orally Once a day for 30 day(s) Active Vitamin C Active Furosemide 20 MG 1 tablet Orally Once a day for 30 day(s) Active Vitamin D 25 MCG (1000 UT) 1 tablet Orally Once a day for 30 day(s) Active Magnesium Active Mounjaro 15 MG/0.5ML as directed Subcutaneous Active Contrave 8-90 MG 1 tablet in the morning Orally Once a day Active Ammonium Lactate 12 % 1 application to affected area Externally to feet Twice a day for 30 days Not-Taking Vitamin B Complex - as directed Orally Active glipiZIDE 5 MG 1 tablet 30 minutes before breakfast Orally Once a day for 30 day(s) 2 tablets AM/2 tablets PM Not-Taking Januvia 100 MG 1 tablet Orally Once a day for 30 day(s) Not-Taking Clotrimazole-Betamet hasone 1-0.05 % 1 application to affected area Externally Twice a day to affected areas on feet for 30 days 05/10/2022 Not-Taking Extra Depth Orthopedic Shoes (1 Pair) with Customized Heat Molded Multidensity Innersoles (3 Pair) as directed Dx: NIDDM/Polyneuropathy (E11.42), Hammertoe Foot Deformity (M20.41,M20.42), Preulcerative Skin Lesion(s) (L85.1 09/20/2020 Not-Taking Extra Depth Orthopedic Shoes (1 Pair) with Customized Heat Molded Multidensity Innersoles (3 Pair) as directed Dx: NIDDM/Polyneuropathy (E11.42), Hammertoe Foot Deformity (M20.41,M20.42), Preulcerative Skin Lesion(s) (L85.1 10/16/2021 Not-Taking Social History Tobacco Use: Social History Observation Description Date Details (start date - stop date) Never Smoker NA - NA Tobacco Use/Smoking Question Answer Notes Are you a: nonsmoker Additional Findings: Tobacco Non-User Current no n-smoker Tobacco use other than smoking: Question Answer Notes Are you an other tobacco user? No Vital Signs Height 5ft6in in 01/27/2024 Weight 303 lbs 01/27/2024 BMI 48.9 kg/m2 01/27/2024 Blood pressure systolic 110 mm Hg 01/27/20 24 Blood pressure diastolic 64 mm Hg 024 Encounters Encounter Location Date Provider Diagnosis [facility] [place] [address] [place] [address] 01/27/2024 Lily Paris Type 2 diabetes mellitus with polyneuropathy E11.42 Assessments Encounter Date Diagnosis (ICD Code) Assessment Notes Treatment Notes Treatment Clinical Notes Section Notes 01/27/2024 Type 2 diabetes mellitus with polyneuropathy (ICD-10 - E11.42) Plan Of Treatment Next Appt Details Follow Up: 2 Months, Reason: Provider Name:Lily Freeman Maggie freeman, 04/09/2024 09:30:00 AM, [address] [place] [address], [id number], Procedure Notes * Category Sub-Category Detail Notes Keratoma Treatment Parring or Cutting o f Benign Hyperkeratotic Lesion(s) 37680 ( 2-4 Lesions ) - The Benign [...] * Lexi CORTEZOB: [birth year] (53 yo F)Acc No.[id number]:01/27/2024 Progress Note Patient:?Corazon CORTEZ Provider:?Lily Toledo DPM :1970???Age:53 Y???Sex:Female D ate:01/27/2024 Address:[address] [place] [address] [address] [id number] Pcp:Guanakito Tyler MD Subjective: * Chief Complaints: * ???At Risk Footcare * HPI: ???At Risk footcare:?Pt States Last PCP Visit:?Date?10/09/2023 * ROS:?General/Constitutional:?Nausea?denies.?Vomiting?denies.?Hunger Thirst?denies.?Loss appetite?denies.?Chills?denies.?Fatigue?denies.?Fever?denies.?Night Sweats?denies.?Unexplained weight loss?denies.?Unexplained weight gain?denies.?HEENTM:?Dentures?denies.?Dizziness?denies.?Glasses/contacts?admits.?Retinopathy?den ies.?Blurred/double vision?denies.?TMJ?denies.?Discharge/drainage?denies.?Implants?denies.?Sore throat?denies.?Dental implants?denies.?Hard of hearing ?denies.?Difficulty chewing/swallowing/speaking?denies.?Nose bleeds?denies.?Sore mouth?denies.?Respiratory:?On O xygen?denies.?Pneumonia/pleurisy?denies.?Bronchitis?denies.?Emphysema?denies.?Co ughing?denies.?Cough blood?denies.?Shortness of breath?denies.?Wheezing?denies.?Cardiovascular:?Pacemaker?denies.?MVP?denies.?WPW?denies.?CHF?denies.?Heart attack?denies.?Septal defect?denies.?Rapid beat?denies.?Chest pain ?denies.?Atrial Fib.?denies.?Murmur/Palpitations?denies.?Gastrointestinal:?Hemorrhoids?denies.?Stomach/Abdominal pain?denies.?Dark blood stool?denies.?Irritable bowel ?denies.?Constipation?denies.?Diarrhea?denies.?Hematology:?Swelling?admits.?Clots?denies.?Varicose Veins?denies.?Bruising?denies.?Bleeding problem?denies.?Genitourinary:?Blood urine?denies.?Frequent/Painfu/urination/bladder control?denies.?Kidney stones?denies.?Infection (UTI)?denies.?Nephropathy?denies.?sex trans dis (STD)?denies.?Prostate?denies.?Musculoskeletal:?Hammertoes?denies.?Bunions?denies.?Back Pain?denies.?Muscle Cramps/ Resting?admits.?Muscle cramps / walking?denies.?Generalized aches and pains?denies.?Weakness?denies.?Integ.:?Shah?denies.?Scars?denies.?Corns/calluses?denies.?Ingrown nails?denies.?Painful nails?denies.?Open Sores?denies.?Rashes?denies.?Neurologic:?Difficulty sleeping?denies.?Brain disorder?denies.?Numbness?admits.?Balance t rouble?denies.?Confusion?denies.?Fainting/blackouts?denies.?Tingling?admits.?Rafi mors?denies.? * Medical History:? * Surgical History:?gall bladd er Hernia Repair Cardioversion 09/2019knee, meniscus sx left 11/30/2021 * Hospitalization/Major Diagno stic Procedure:?Denies Past Hospitalization * Family History:?Mother: dece ased, foot problems, diagnosed with Unspecified essential hypertension, Unspecified heart disease, Family history of arthritis, Other malignant neoplasm of unspecified site, Diabetic - NIDDM.?Father: , diagnosed with Diabetic - NIDDM.? * Social History:?Tobacco Use:?Tobacco Use/Smoking?Are you a:?nonsmoker ?Additional Findings: Tobacco Non-User?Current non-smoker ?Tobacco use other than smoking?Are you an other tobacco user??No * Medications:?TakingContrave 8-90 MG Tablet Extended Release 12 Hour 1 tablet in the morning Orally Once a day Vitamin B Complex - Tablet as directed Orally Magnesium Mounjaro 15 MG/0.5ML Solution Pen-injector as directed Subcutaneous Vitamin C Furosemide 20 MG Tablet 1 tablet Orally Once a day Vitamin D 25 MCG (1000 UT) Tablet 1 tablet Orally Once a day Lipitor 10 MG Tablet 1 tablet Orally Once a day Flecainide Acetate 100 MG Tablet as directed Orally , Notes to Pharmacist: 1 tab AM/1 tab PMEliquis 5 MG Tablet as directed Orally , Notes to Pharmacist: 1 tab AM/1 tab PMCardizem CD 240 MG Capsule Extended Release 24 Hour 1 capsule Orally Once a day methIMAzole 5 MG Tablet 1 tablet Orally Once a day , Notes to Pharmacist: every other dayKetoconazole 2 % Cream 1 application Externally Twice a day , Notes to Pharmacist: PRNExtra Depth Orthopedic Shoes (1 Pair) with Customized Heat Molded Multidensity Innersoles (3 Pair) as directed Dx: NIDDM/Polyneuropathy (E11.42), Hammertoe Foot Deformity (M20.41,M20.42), Preulcerative Skin Lesion(s) (L85.1 Compression Stockings 20-30mm Hg closed toe- knee high 1 pair wear daily Taking Contrave 8-90 MG Tablet Extended Release 12 Hour 1 tablet in the morning Orally Once a day Taking Vitamin B Complex - Tablet as directed Orally Taking Magnesium Taking Mounjaro 15 MG/0.5ML Solution Pen-injector as directed Subcutaneous Taking Vitamin C Taking Furosemide 20 MG Tablet 1 tablet Orally Once a day Taking Vitamin D 25 MCG (1000 UT) Tablet 1 tablet Orally Once a day Taking Lipitor 10 MG Tablet 1 tablet Orally Once a day Taking Flecainide Acetate 100 MG Tablet as directed Orally , Notes to Pharmacist: 1 tab AM/1 tab PMTaking Eliquis 5 MG Tablet as directed Orally , Notes to Pharmacist: 1 tab AM/1 tab PMTaking Cardizem CD 240 MG Capsule Extended Release 24 Hour 1 capsule Orally Once a day Taking methIMAzole 5 MG Tablet 1 tablet Orally Once a day , Notes to Pharmacist: every other dayTaking Ketoconazole 2 % Cream 1 application Externally Twice a day , Notes to Pharmacist: PRNTaking Extra Depth Orthopedic Shoes (1 Pair) with Customized Heat Molded Multidensity Innersoles (3 Pair) as directed Dx: NIDDM/Polyneuropathy (E11.42), Hammertoe Foot Deformity (M20.41,M20.42), Preulcerative Skin Lesion(s) (L85.1 Taking Compression Stockings 20-30mm Hg closed toe- knee high 1 pair wear daily Not-Taking/PRNmetFORMIN HCl 500 MG Tablet as directed Orally twice a day Ciclopirox Olamine 0.77 % Cream 1 application to affected area Externally to feet Twice a day Clotrimazole-Betamethasone 1-0.05 % Cream 1 application to affected area Externally Twice a day to affected areas on feet Extra Depth Orthopedic Shoes (1 Pair) with Customized Heat Molded Multidensity Innersoles (3 Pair) as directed Dx: NIDDM/Polyneuropathy (E11.42), Hammertoe Foot Deformity (M20.41,M20.42), Preulcerative Skin Lesion(s) (L85.1 Extra Depth Orthopedic Shoes (1 Pair) with Customized Heat Molded Multidensity Innersoles (3 Pair) as directed Dx: NIDDM/Polyneuropathy (E11.42), Hammertoe Foot Deformity (M20.41,M20.42), Preulcerative Skin Lesion(s) (L85.1 glipiZIDE 5 MG Tablet 1 tablet 30 minutes before breakfast Orally Once a day , Notes to Pharmacist: 2 tablets AM/2 tablets PMJanuvia 100 MG Tablet 1 tablet Orally Once a day Ammonium Lactate 12 % Cream 1 application to affected area Externally to feet Twice a day Medication List reviewed and reconciled with the patientNot-Taking/PRN metFORMIN HCl 500 MG Tablet as directed Orally twice a day Not-Taking/PRN Ciclopirox Olamine 0.77 % Cream 1 application to affected area Externally to feet Twice a day Not-Taking/PRN Clotrimazole-Betamethasone 1-0.05 % Cream 1 application to affected area Externally Twice a day to affected areas on feet Not-Taking/PRN Extra Depth Orthopedic Shoes (1 Pair) with Customized Heat Molded Multidensity Innersoles (3 Pair) as directed Dx: NIDDM/Polyneuropathy (E11.42), Hammertoe Foot Deformity (M20.41,M20.42), Preulcerative Skin Lesion(s) (L85.1 Not-Taking/PRN Extra Depth Orthopedic Shoes (1 Pair) with Customized Heat Molded Multidensity Innersoles (3 Pair) as directed Dx: NIDDM/Polyneuropathy (E11.42), Hammertoe Foot Deformity (M20.41,M20.42), Preulcerative Skin Lesion(s) (L85.1 Not-Taking/PRN glipiZIDE 5 MG Tablet 1 tablet 30 minutes before breakfast Orally Once a day , Notes to Pharmacist: 2 tablets AM/2 tablets PMNot-Taking/PRN Januvia 100 MG Tablet 1 tablet Orally Once a day Not-Taking/PRN Ammonium Lactate 12 % Cream 1 application to affected area Externally to feet Twice a day Medication List reviewed and reconciled with the patient * Allergies:?Advil: on blood t hinnersAleve: on blood thinnersMotrin: on blood thinnersyes[Allergies Verified] Objective: * Vitals:?Ht: 5ft6in, Wt:303, BMI:48.9, Shoe size: 11W, BP:110/64mm Hg, BS: not taken, Ht-cm: 167.64 cm, Wt-k.44 kg. * ???Past Orders: ???Lab:HEMOGLOBIN A1C (GLYCO HEMOGLOBIN) (Order Date - 01/12/2024) (Collection Date & Time - 01/12/2024 09:19 AM) ? Value Reference Range ?TOTAL HEMOGLOBIN (HGBA1C) 5.8 * Examination: ???Ophthalmology Referral: ?DIABETES EYE EXAM?Neurological: ?SENSORY:?Neurological exam demonstrates, reduced light touch sensation, reduced sharp/dull discrimination , reduced vibration sensation, in a stocking fashion, B/L, 5.07 monofilament test performed at plantar aspects of 5 varied sites per foot shows sensation, reduced, B/L.?Nails: ?NAILS are:? 1-5 B/L, Elongated, overgrown, dystrophic.?Dermatologic: ?SKIN FINDINGS:? Skin exam reveals Keratotic lesion(s) located at, Medial plantar, TA, T5?.?Orthopedic: ?DIGITAL DEFORMITIES:?Digital contracture, PIPJ, 2-5 B/L, incompl-reducible to push-up test, no over, nor underlapping, with evidence of shoe producing skin irritation.?General Examination: ?FOOT EXAM:?Footwear Evaluation?Vascular: ?DP PULSES(B):?3/4, B/L.?PT PULSES(B):?3/4, B/L.?CAPILLARY FILL TIME:?immediate, all digits, B/L.?TROPHIC CONDITION-TEXTURE/ELASTICITY/TURGOR/HAIR GROWTH(B):?normal, B/L.?TEMPERTURE GRADIENT(C):?normal, warm to cool, proximal to distal, B/L, B/L.? Assessment: * Assessment: 1.?Type 2 diabetes mellitus with polyneuropathy - E11.42 (Primary)??? Plan: * Treatment: * Procedures:?Keratoma Treatment:?Parring or Cutting of Benign Hyperkeratotic Lesion(s)?28302 ( 2-4 Lesions ) - The Benign [...] ING DYSTROPHIC NAILS ANY #, Modifiers: XS 34499 TRIM SKIN LESIONS, 2 TO 4, Modifiers: XS * Follow Up:?2 Months * Images: * Sign off status: Completed true * Provider:?Lily Toledo, DPM Date:?04/2023 Generated for Jeri hauser/Flores/eTlorin on:?02/05/2024 07:57 AM EST History and Physical Notes * HPI (History of Present Illness) Category Sub-Category Detail Notes Category Not es At Risk footcare Pt States Last PCP Visit: Date: Examination Category Sub-Category Detail Notes Category Not es Neurological SENSORY: Neurological exa m demonstrates, reduced light touch sensation, reduced sharp/dull discrimination , reduced vibration sensation, in a stocking fashion, B/L, 5.07 monofilament test performed at plantar aspects of 5 varied sites per foot shows sensation, reduced, B/L Dermatologic SKIN FINDINGS: Skin exam reveal s Keratotic lesion(s) located at, Medial plantar, TA, T5 Orthopedic DIGITAL DEFORMITIES: Digital con tracture, PIPJ, 2-5 B/L, incompl-reducible to push-up test, no over, nor underlapping, with evidence of shoe producing skin irritation General Examination FOOT EXAM: Lower Extrem ity Neurological Exam performed:: Yes Footwear Evaluation Footwear Evaluation performe d:: Yes Ophthalmology Referral DIABETES EYE EXAM Procedure Perform ed:: Yes ?Date of Exam Performed: 10/23/2023 Findings of Diabetic Eye Exam:: no retin opathy Vascular DP PULSES(B): 3/4, B/L PT PULSES(B): 3/4, B/L CAPILLARY FILL TIME: immediate, all digi ts, B/L TEMPERTURE GRADIENT(C): normal, warm to cool, proximal to distal, B/L, B/L TROPHIC CONDITION-TEXTURE/ELASTICITY/TURGOR/HAIR GROWTH(B): normal, B/L Nails NAILS are: 1-5 B/L, Elongated, overgrow n, dystrophic
== END 2024-02-05 09:24 | disposition home or self-care (01) ==
LOC: HO.HWS 07:55
PROVIDERS: PCP Internal Medicine; Visit Provider Obstetrics & Gynecology
DX: N95.0 Postmenopausal bleeding (principal)
CPT/HCPCS: 58100

== ENCOUNTER 2024-02-05 07:55 | Outpatient (REF) | payer BC, SELFPAY | END 2024-02-05 07:56 | disposition home or self-care (01) | LOC: HO.LNP 07:55 | PROVIDERS: PCP Internal Medicine; Visit Provider Obstetrics & Gynecology | DX: N95.0 Postmenopausal bleeding (principal); R93.89 Abnormal findings on diagnostic imaging of other specified body structures | CPT/HCPCS: 58100; 88305 ==

== ENCOUNTER 2024-02-11 10:00 | Outpatient (AMB) | payer BC, SELFPAY ==
--- OUTSIDE RECORDS SUMMARY | 2024-02-11 10:05 | XMS_ITS ---
Author Organization [facility] Address [address] [place] [address] Care Team Providers Care Programmer Analyst Consultant Name Role Phone FINNMihai MADDIE Unavailable [phone] REASON FOR VISIT PA - contrave Encounters Encounter Location Date Provider Diagnosis [facility] [address] [facility] [address] [place] [address] 11/07/2023 MADDIE REYES PLAN OF TREATMENT Next Appt Details Provider Name:MADDIE REYES, 03/17/2024 01:45:00 PM, [address] [facility], [address], [place], [address], Progress Notes * Lexi CORTEZOB: [birth year] (53 yo F)Acc No.[id number]:11/07/2023 Patient:??Corazon CORTEZ :1970?Age:53 Y?Sex:Fe male Address:[place] [address] * true * Date:??
--- OUTSIDE RECORDS SUMMARY | 2024-02-11 10:05 | XMS_ITS ---
Author Organization [facility] Address [address] [place] [address] Care Team Providers Care Wireless Manager Name Role Phone MAY MADDIE Unavailable [phone] MEDICATIONS Medication SIG (Take, Route, Fr equency, [...] ctive Encounters Encounter Location Date Provider Diagnosis [facility] [address] [address] 11/12/2023 MADDIECARMEN BRISENOMihai Morbid obesity E66.0 1 [...] Provider Name:MADDIE REYES, 03/17/2024 01:45:00 PM, [address] [address], [place], [address], Progress Notes * Lexi CORTEZOB: [birth year] (53 yo F)Acc No.[id number]:11/12/2023 Patient:??Corazon CORTEZ :1970?Age:53 Y?Sex:Fe male Address:[address] [place] [address] [place] [address] * Refills?? Refill Contrave Tablet Extended Release [...]
--- OUTSIDE RECORDS SUMMARY | 2024-02-11 10:05 | XMS_ITS ---
Author Organization [facility] Address [address] [place] [id number] Care Team Providers Care Material Requirements Planning Manager Name Role Phone MADDIE REYES Unavailable [phone] ALLERGIES Allergen (clinical drug ingredient) Drug/Non Drug [...] 12/18/2023 Encounters Encounter Location Date Provider Diagnosis [facility] [address] [facility] [address] [place] [address] 12/18/2023 MADDIE BRISENOMihai Morbid obesity E66.0 1 [...] E66.01) #Weight Management 12/18/2023 Labs reviewed from [facility] September 2023 thriving Given ongoing weight loss this may be a recurrent problem until her weight stabilizes 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 animator and rechecking labs every 4 weeks or [...] minimum of 6 months The most recent [place] [employer] clinical endocrinologists and [place] [employer] guidelines recommend patients who [...] software and direct typing Please excuse inadvertent principal planner or typing errors, or uncorrected word substitutions Although every attempt has been made by the provider to proofread this document, occasional misspellings and typographical errors may still be present Due to the previous pandemic, and the use of personal protective equipment (PPE) This may decrease voice recognition accuracy Inadvertent principal planner errors may occur 12/18/2023 BMI 45.0-49.9, adult (ICD-10 - Z68.42) #Weight Management 12/18/2023 Labs reviewed from [facility] September 2023 thriving Given ongoing weight loss this may be a recurrent problem until her weight stabilizes 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 animator and rechecking labs every 4 weeks or [...] minimum of 6 months The most recent [place] [employer] endocrinologists and [place] [employer] guidelines recommend patients who [...] software and direct typing Please excuse inadvertent principal planner or typing errors, or uncorrected word substitutions Although every attempt has been made by the provider to proofread this document, occasional misspellings and typographical errors may still be present Due to the previous pandemic, and the use of personal protective equipment (PPE) This may decrease voice recognition accuracy Inadvertent principal planner errors may occur 12/18/2023 Dietary counseling and surveillance (ICD-10 - Z71.3) #Weight Management 12/18/2023 Labs reviewed from [facility] September 2023 thriving Given ongoing weight loss this may be a recurrent problem until her weight stabilizes 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 animator and rechecking labs every 4 weeks or [...] minimum of 6 months The most recent [place] [employer] clinical endocrinologists and [place] [employer] guidelines recommend patients who [...] software and direct typing Please excuse inadvertent principal planner or typing errors, or uncorrected word substitutions Although every attempt has been made by the provider to proofread this document, occasional misspellings and typographical errors may still be present Due to the previous pandemic, and the use of personal protective equipment (PPE) This may decrease voice recognition accuracy Inadvertent principal planner errors may occur 12/18/2023 Type 2 diabetes mellitus without complication, without long-term current use of insulin (ICD-10 - E11.9) #Weight Management 12/18/2023 Labs reviewed from [facility] September 2023 thriving Given ongoing weight loss this may be a recurrent problem until her weight stabilizes 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 animator and rechecking labs every 4 weeks or [...] minimum of 6 months The most recent [place] [employer] clinical endocrinologists and [place] [employer] guidelines recommend patients who [...] software and direct typing Please excuse inadvertent principal planner or typing errors, or uncorrected word substitutions Although every attempt has been made by the provider to proofread this document, occasional misspellings and typographical errors may still be present Due to the previous pandemic, and the use of personal protective equipment (PPE) This may decrease voice recognition accuracy Inadvertent principal planner errors may occur 12/18/2023 Graves disease (ICD-10 - E05.00) #Weight Management 12/18/2023 Labs reviewed from [facility] September 2023 thriving Given ongoing weight loss this may be a recurrent problem until her weight stabilizes 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 animator and rechecking labs every 4 weeks or [...] minimum of 6 months The most recent [place] [employer] clinical endocrinologists and [place] [employer] guidelines recommend patients who [...] software and direct typing Please excuse inadvertent principal planner or typing errors, or uncorrected word substitutions Although every attempt has been made by the provider to proofread this document, occasional misspellings and typographical errors may still be present Due to the previous pandemic, and the use of personal protective equipment (PPE) This may decrease voice recognition accuracy Inadvertent principal planner errors may occur 12/18/2023 Chronic anticoagulation (ICD-10 - Z79.01) #Weight Management 12/18/2023 Labs reviewed from [facility] September 2023 thriving Given ongoing weight loss this may be a recurrent problem until her weight stabilizes 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 animator and rechecking labs every 4 weeks or [...] minimum of 6 months The most recent [place] [employer] clinical endocrinologists and [place] [employer]in[employer] guidelines recommend patients who [...] software and direct typing Please excuse inadvertent principal planner or typing errors, or uncorrected word substitutions Although every attempt has been made by the provider to proofread this document, occasional misspellings and typographical errors may still be present Due to the previous pandemic, and the use of personal protective equipment (PPE) This may decrease voice recognition accuracy Inadvertent principal planner errors may occur 12/18/2023 PAF (paroxysmal atrial fibrillation) (ICD-10 - I48.0) #Weight Management 12/18/2023 Labs reviewed from [facility] September 2023 thriving Given ongoing weight loss this may be a recurrent problem until her weight stabilizes 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 animator and rechecking labs every 4 weeks or [...] minimum of 6 months The most recent [place] [employer] clinical endocrinologists and [place] [employer] guidelines recommend patients who [...] software and direct typing Please excuse inadvertent principal planner or typing errors, or uncorrected word substitutions Although every attempt has been made by the provider to proofread this document, occasional misspellings and typographical errors may still be present Due to the previous pandemic, and the use of personal protective equipment (PPE) This may decrease voice recognition accuracy Inadvertent principal planner errors may occur 12/18/2023 NICHOLE (obstructive sleep apnea) (ICD-10 - G47.33) #Weight Management 12/18/2023 Labs reviewed from [facility] September 2023 thriving Given ongoing weight loss this may be a recurrent problem until her weight stabilizes 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 animator and rechecking labs every 4 weeks or [...] minimum of 6 months The most recent [place] [employer] of clinical endocrinologists and [place] [employer]in[employer] guidelines recommend patients who [...] software and direct typing Please excuse inadvertent principal planner or typing errors, or uncorrected word substitutions Although every attempt has been made by the provider to proofread this document, occasional misspellings and typographical errors may still be present Due to the previous pandemic, and the use of personal protective equipment (PPE) This may decrease voice recognition accuracy Inadvertent principal planner errors may occur PLAN OF TREATMENT Medication [...] Details Provider Name:MADDIE REYES, 03/17/2024 01:45:00 PM, [address] [place] [address], [facility] [address], [place], [address], Progress Notes * Lexi CORTEZOB: [birth year] (53 yo F)Acc No.[id number]:12/18/2023 Patient:??Corazon CORTEZ Provider:??MADDIE REYES NP :1970?Age:53 Y?Sex:Fe male Date:12/18/2023 Address:[address] [place], [place] [id number] Subjective: * Chief Complaints: * ?1. Pt [...] here ?#Weight Management ?12/18/2023 ?Labs reviewed from [facility] September 2023 ?Still on Mounjaro 15mg, injection day Sundays. Contrave BID. No s/e. ?Appetite supressed. Has been stressful last couple months with personal things. 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 She remains also on methimazole ?Having full [...] for ablation in the near future with geologist JOSHUA, ? 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 Tyler in [place] ?Comprehensive labs from [facility] ?September 2023 ?Renal function electrolytes and [...] G47.33?? #Weight Management 12/18/2023 Labs reviewed from [facility] September 2023 thriving Given ongoing weight loss this may be a recurrent problem until her weight stabilizes 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 animator and rechecking labs every 4 weeks or [...] minimum of 6 months The most recent [place] [employer] of clinical endocrinologists and [place] [employer]in[employer] guidelines recommend patients who [...] software and direct typing Please excuse inadvertent principal planner or typing errors, or uncorrected word substitutions Although every attempt has been made by the provider to proofread this document, occasional misspellings and typographical errors may still be present Due to the previous pandemic, and the use of personal protective equipment (PPE) This may decrease voice recognition accuracy Inadvertent principal planner errors may occur. Plan: * Treatment: * Procedure Codes:??G0447 FCE- FCE BEHAVRL CNSL OBESITY 15 MIN, Modifiers: 59 * Images: Billing Information: * Visit Code:?? 72170 Office Visit, Est Pt., Level 4. * [...] here #Weight Management 12/18/2023 Labs reviewed from [facility] September 2023 Still on Mounjaro 15mg, injection day Sundays. Contrave BID. No s/e. Appetite supressed. Has been stressful last couple months with personal things. 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 She remains also on methimazole Having full [...] for ablation in the near future with geologist JOSHUA, but is on hold until weight loss is stabilizes She also has a history of Graves' disease, obstructive sleep apnea, diabetes, Patient referred to us from [facility] She is under the care of an animator for both her diabetes as well as Graves' disease 12/18/2023, Weight 300, BMI 47 (+8lbs) 10/16/2023, Weight 292lbs , BMI 45.8 08/07/2023, Weight 292lbs, BMI 47 06/25/2023, Weight 294lbs ,BMI (-22lbs) 05/07/2023, Weight 316 lbs, BMI 49 03/10/2023, Weight 314, BMI 50.8 01/15/2023: Weight 315 lbs, BMI 50.8 12/06/2022: Weight 328 lbs, BMI 52.8 10/23/2022: Weight 348 lbs, BMI 56 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 Tyler in [place] Comprehensive labs from [facility] September 2023 Renal function electrolytes and LFTs are stable Estimated average glucose of 110 A1c 5.5 TSH 0.94 Total cholesterol 151, LDL 82, triglycerides 118, HDL 46 Has not had an echocardiogram recently. Examination Category Sub-Category Detail Notes Category Not es General Examination GENERAL APPEARANCE: in no ac akutan distress, well developed, well nourished HEAD: normocephalic, [...]
--- OUTSIDE RECORDS SUMMARY | 2024-02-11 10:06 | XMS_ITS ---
Author Organization [facility] Address [address] [place] [address] Care Team Providers Care Beach Attendant Name Role Phone Guanakito Tyler MD Primary Care Provider Lily Corral Unavailable [phone] Allergies Allergen (clinical drug ingredient) Drug/Non Drug [...] 024 Encounters Encounter Location Date Provider Diagnosis [facility] [place] [address] [place] [address] 11/14/2023 Lily Toledo Type 2 diabetes mellitus with polyneuropathy E11.42 and Tinea pedis B35.3 Assessments Encounter Date Diagnosis (ICD Code) Assessment Notes Treatment Notes Treatment Clinical Notes Section Notes 11/14/2023 Type 2 diabetes mellitus with polyneuropathy (ICD-10 - E11.42) 11/14/2023 Tinea pedis (ICD-10 - B35.3) Plan Of Treatment Next Appt Details Follow Up: 2 Months, Reason: Provider Name:Lily freeman, 04/09/2024 09:30:00 AM, [address] [place] [address], [phone], Procedure Notes * Category Sub-Category Detail Notes Keratoma Treatment Parring or Cutting o f Benign Hyperkeratotic Lesion(s) 66661 ( 2-4 Lesions ) - The Benign [...] * Lexi CORTEZOB: [birth year] (53 yo F)Acc No.[id number]:11/14/2023 Progress Note Patient:?Ran Cortezelle Provider:?Lily Toledo DPM :1970???Age:53 Y???Sex:Female D ate:11/14/2023 Address: [address] [id number] Pcp:Guanakito Tyler MD Subjective: * Chief Complaints: [...] Procedures:?Keratoma Treatment:?Parring or Cutting of Benign Hyperkeratotic Lesion(s)?44139 ( 2-4 Lesions ) - The Benign [...] ING DYSTROPHIC NAILS ANY #, Modifiers: XS [id number] TRIM SKIN LESIONS, 2 TO 4, Modifiers: [...] Toledo DPM Date:? Generated for Jeri hauser/Flores/Breannaitting on:?02/11/2024 10:05 AM EST History and Physical Notes * [...] Eye Exam:: no retin opathy Vascular DP PULSES (B): 3/4, B/L PT PULSES (B): 3/4, B/L CAPILLARY FILL TIME: immediate, all digi ts, B/L TEMPERTURE GRADIENT (C): normal, warm to cool, proximal to distal, B/L, B/L TROPHIC CONDITION-TEXTURE/ELASTICITY/TURGOR/HAIR GROWTH (B): normal, B/L Nails NAILS are: 1-5 B/L, Elongated, overgrow n, dystrophic
--- OUTSIDE RECORDS SUMMARY | 2024-02-11 10:06 | XMS_ITS | Patient Health Record ---
Author Organization [facility] Address [address] [place] [address] Care Team Providers Care Vehicle Return Associate Name Role Phone MADDIE REYES Unavailable [phone] ALLERGIES Allergen (clinical drug ingredient) Drug/Non Drug [...] Active Mounjaro 15 MG/0.5ML 15mg Subcutaneous w [facility] for 30 days 03/10/2023 Active methIMAzole 5 [...] Notes Problem Morbid obesity (E66.01) Active confirmed 561684644 Problem NICHOLE (obstructive sleep apnea) (G47.33) Active confirmed 83851340 Problem Chronic anticoagulation (Z79.01) Active confirmed 147815858 Problem Type 2 diabetes mellitus without complication, without long-term current use of insulin (E11.9) Active confirmed 059108234 Problem BMI 50.0-59.9, adult (Z68.43) Active confirmed 256899160 Problem Graves disease (E05.00) Active confirmed 096080506 Problem PAF (paroxysmal atrial fibrillation) (I48.0) Active confirmed 746866644 Problem BMI 45.0-49.9, adult (Z68.42) Active confirmed 950717702 VITAL SIGNS Heart Rate 74 /min 12/18/2023 Oximetry 97 % 12/18/2023 Blood pressure diastolic 80 mm Hg 12/18/2023 Height 66 in 12/18/2023 Blood pressure systolic 124 mm Hg 12/18/2023 Weight 300 lbs 12/18/2023 BMI 48.42 kg/m2 12/18/2023 Encounters Encounter Location Date Provider Diagnosis [place] [address] [address] 03/10/2023 MADDIE REYES Morbid obesity E66.0 1 ; BMI 50.0-59.9, adult Z68.43 ; Graves disease E05.00 ; Type 2 diabetes mellitus without complication, without long-term current use of insulin E11.9 ; Chronic anticoagulation Z79.01 ; PAF (paroxysmal atrial fibrillation) I48.0 and NICHOLE (obstructive sleep apnea) G47.33 [place] [address] [address] 05/08/2023 MADDIE REYES Morbid obesity E66.0 1 ; BMI 50.0-59.9, adult Z68.43 ; Graves disease E05.00 ; Type 2 diabetes mellitus without complication, without long-term current use of insulin E11.9 ; Chronic anticoagulation Z79.01 ; PAF (paroxysmal atrial fibrillation) I48.0 and NICHOLE (obstructive sleep apnea) G47.33 [facility] [address] [address] 06/25/2023 MADDIE BORHOT Morbid obesity E66.0 1 ; Graves disease E05.00 ; Type 2 diabetes mellitus without complication, without long-term current use of insulin E11.9 ; Chronic anticoagulation Z79.01 ; PAF (paroxysmal atrial fibrillation) I48.0 ; NICHOLE (obstructive sleep apnea) G47.33 and BMI 45.0-49.9, adult Z68.42 [facility] [address] [address] 08/07/2023 MADDIE BORHOT Morbid obesity E66.0 1 ; BMI 45.0-49.9, adult Z68.42 ; Dietary counseling and surveillance Z71.3 ; Type 2 diabetes mellitus without complication, without long-term current use of insulin E11.9 ; Graves disease E05.00 ; Chronic anticoagulation Z79.01 ; PAF (paroxysmal atrial fibrillation) I48.0 and NICHOLE (obstructive sleep apnea) G47.33 [facility] [address] [address] 10/16/2023 MADDIE BORHOT Morbid obesity E66.0 1 ; BMI 45.0-49.9, adult Z68.42 ; Dietary counseling and surveillance Z71.3 ; Type 2 diabetes mellitus without complication, without long-term current use of insulin E11.9 ; Graves disease E05.00 ; Chronic anticoagulation Z79.01 ; PAF (paroxysmal atrial fibrillation) I48.0 and NICHOLE (obstructive sleep apnea) G47.33 [facility] [address] [address] 12/18/2023 MADDIE BORHOT Morbid obesity E66.0 1 ; BMI 45.0-49.9, adult Z68.42 ; Dietary counseling and surveillance Z71.3 ; Type 2 diabetes mellitus without complication, without long-term current use of insulin E11.9 ; Graves disease E05.00 ; Chronic anticoagulation Z79.01 ; PAF (paroxysmal atrial fibrillation) I48.0 and NICHOLE (obstructive sleep apnea) G47.33 [address] [address] 05/16/2023 MADDIE REYES [facility] [address] [place] [address] 07/30/2023 MADDIE REYES Morbid obesity E66.[address] [facility] [address] [facility] [address] [facility] [address] [place] [address] 10/22/2023 MADDIE REYES Morbid obesity E66.[address] [facility] [address] [facility] [address] [address] 11/07/2023 MADDIE REYES [facility] [address] [address] 11/12/2023 MADDIE REYES Morbid obesity E66.0 1 [...] regimen I will request and coordinate with night time babysitter and primary care In office A1c 5.6 today 02/2023 Total time spent today was 30 minutes of which greater than 50% was spent on coordinating and counseling We are a board certified obesity and weight management practice Patient has trialed behavioral modification, dietary restrictions and exercise for a minimum of 6 months The most recent [place] [employer] of clinical endocrinologists and [place] [employer] end[employer] guidelines recommend patients who [...] track activity level. Consider using apps like [employer], [employer], lose it, stick as needed for self-monitoring and weight management. Consider group exercises. Consider hiring a hearing dog trainer. Regular exercise is carvalho to sustainable health [...] counseling and psychiatry and Dr Andres at [facility]. We would like to cover regular topics [...] software and direct typing Please excuse inadvertent highway research engineer or typing errors, or uncorrected word substitutions Although every attempt has been made by the provider to proofread this document, occasional misspellings and typographical errors may still be present Due to the previous pandemic, and the use of personal protective equipment (PPE) This may decrease voice recognition accuracy Inadvertent highway research engineer errors may occur 05/08/2023 Morbid obesity (ICD-10 [...] minimum of 6 months The most recent [place] [employer] of clinical endocrinologists and [place] [employer] end[employer] guidelines recommend patients who [...] track activity level. Consider using apps like [employer], [employer], lose it, stick as needed for self-monitoring and weight management. Consider group exercises. Consider hiring a hearing dog trainer. Regular exercise is carvalho to sustainable health [...] counseling and psychiatry and Dr Andres at [facility]. We would like to cover regular topics [...] software and direct typing Please excuse inadvertent highway research engineer or typing errors, or uncorrected word substitutions Although every attempt has been made by the provider to proofread this document, occasional misspellings and typographical errors may still be present Due to the previous pandemic, and the use of personal protective equipment (PPE) This may decrease voice recognition accuracy Inadvertent highway research engineer errors may occur 06/25/2023 Morbid obesity (ICD-10 [...] minimum of 6 months The most recent [place] [employer] of clinical endocrinologists and [place] [employer] end[employer]in[employer] guidelines recommend patients who [...] track activity level. Consider using apps like [employer], [employer], lose it, stick as needed for self-monitoring and weight management. Consider group exercises. Consider hiring a hearing dog trainer. Regular exercise is carvalho to sustainable health [...] counseling and psychiatry and Dr Andres at [facility]. We would like to cover regular topics [...] software and direct typing Please excuse inadvertent highway research engineer or typing errors, or uncorrected word substitutions Although every attempt has been made by the provider to proofread this document, occasional misspellings and typographical errors may still be present Due to the previous pandemic, and the use of personal protective equipment (PPE) This may decrease voice recognition accuracy Inadvertent highway research engineer errors may occur 06/25/2023 Graves disease (ICD-10 [...] minimum of 6 months The most recent [place] [employer] of clinical endocrinologists and [place] [employer] endocrin[employer] guidelines recommend patients who [...] track activity level. Consider using apps like [employer], [employer], lose it, stick as needed for self-monitoring and weight management. Consider group exercises. Consider hiring a hearing dog trainer. Regular exercise is carvalho to sustainable health [...] counseling and psychiatry and Dr Andres at [facility]. We would like to cover regular topics [...] software and direct typing Please excuse inadvertent highway research engineer or typing errors, or uncorrected word substitutions Although every attempt has been made by the provider to proofread this document, occasional misspellings and typographical errors may still be present Due to the previous pandemic, and the use of personal protective equipment (PPE) This may decrease voice recognition accuracy Inadvertent highway research engineer errors may occur 07/30/2023 Morbid obesity (ICD-10 - E66.01) 08/07/2023 Morbid obesity (ICD-10 - E66.01) #Weight Management 08/07/2023 thriving Thyroid function is very inconsistent and sporadic at the moment which can alter and hinder weight loss 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 Consider using apps like [employer], [employer], lose it, stick as needed for self-monitoring and weight management. Consider group exercises. Consider hiring a hearing dog trainer. Regular exercise is carvalho to sustainable health [...] counseling and psychiatry and Dr Andres at [facility]. We would like to cover regular topics [...] software and direct typing Please excuse inadvertent highway research engineer or typing errors, or uncorrected word substitutions Although every attempt has been made by the provider to proofread this document, occasional misspellings and typographical errors may still be present Due to the previous pandemic, and the use of personal protective equipment (PPE) This may decrease voice recognition accuracy Inadvertent highway research engineer errors may occur 08/07/2023 BMI 45.0-49.9, adult (ICD-10 - Z68.42) #Weight Management 08/07/2023 thriving Thyroid function is very inconsistent and sporadic at the moment which can alter and hinder weight loss 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 Consider using apps like [employer], [employer], lose it, stick as needed for self-monitoring and weight management. Consider group exercises. Consider hiring a hearing dog trainer. Regular exercise is carvalho to sustainable health [...] counseling and psychiatry and Dr Andres at [facility]. We would like to cover regular topics [...] software and direct typing Please excuse inadvertent highway research engineer or typing errors, or uncorrected word substitutions Although every attempt has been made by the provider to proofread this document, occasional misspellings and typographical errors may still be present Due to the previous pandemic, and the use of personal protective equipment (PPE) This may decrease voice recognition accuracy Inadvertent highway research engineer errors may occur 10/16/2023 Morbid obesity (ICD-10 - E66.01) #Weight Management 10/16/2023 Labs reviewed from [facility] September 2023 thriving Given ongoing weight loss this may be a recurrent problem until her weight stabilizes 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 Consider using apps like [employer], [employer], lose it, stick as needed for self-monitoring and weight management. Consider group exercises. Consider hiring a hearing dog trainer. Regular exercise is carvalho to sustainable health [...] counseling and psychiatry and Dr Andres at [facility]. We would like to cover regular topics [...] software and direct typing Please excuse inadvertent highway research engineer or typing errors, or uncorrected word substitutions Although every attempt has been made by the provider to proofread this document, occasional misspellings and typographical errors may still be present Due to the previous pandemic, and the use of personal protective equipment (PPE) This may decrease voice recognition accuracy Inadvertent highway research engineer errors may occur 10/22/2023 Morbid obesity (ICD-10 - E66.01) 11/12/2023 Morbid obesity (ICD-10 - E66.01) 12/18/2023 Morbid obesity (ICD-10 - E66.01) #Weight Management 12/18/2023 Labs reviewed from [facility] September 2023 thriving Given ongoing weight loss this may be a recurrent problem until her weight stabilizes 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 and rechecking labs every 4 weeks or [...] minimum of 6 months The most recent [place] [employer] of clinical endocrinologists and [place] [employer] of endocrinology guidelines recommend patients who [...] software and direct typing Please excuse inadvertent highway research engineer or typing errors, or uncorrected word substitutions Although every attempt has been made by the provider to proofread this document, occasional misspellings and typographical errors may still be present Due to the previous pandemic, and the use of personal protective equipment (PPE) This may decrease voice recognition accuracy Inadvertent highway research engineer errors may occur 10/16/2023 BMI 45.0-49.9, adult (ICD-10 - Z68.42) #Weight Management 10/16/2023 Labs reviewed from [facility] September 2023 thriving Given ongoing weight loss this may be a recurrent problem until her weight stabilizes 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 Consider using apps like [employer], [employer], lose it, stick as needed for self-monitoring and weight management. Consider group exercises. Consider hiring a hearing dog trainer. Regular exercise is carvalho to sustainable health [...] counseling and psychiatry and Dr Andres at [facility]. We would like to cover regular topics [...] software and direct typing Please excuse inadvertent highway research engineer or typing errors, or uncorrected word substitutions Although every attempt has been made by the provider to proofread this document, occasional misspellings and typographical errors may still be present Due to the previous pandemic, and the use of personal protective equipment (PPE) This may decrease voice recognition accuracy Inadvertent highway research engineer errors may occur 12/18/2023 BMI 45.0-49.9, adult (ICD-10 - Z68.42) #Weight Management 12/18/2023 Labs reviewed from [facility] September 2023 thriving Given ongoing weight loss this may be a recurrent problem until her weight stabilizes 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 and rechecking labs every 4 weeks or [...] minimum of 6 months The most recent [place] [employer] of clinical endocrinologists and [place] [employer] of endocrinology guidelines recommend patients who [...] software and direct typing Please excuse inadvertent highway research engineer or typing errors, or uncorrected word substitutions Although every attempt has been made by the provider to proofread this document, occasional misspellings and typographical errors may still be present Due to the previous pandemic, and the use of personal protective equipment (PPE) This may decrease voice recognition accuracy Inadvertent highway research engineer errors may occur 08/07/2023 Dietary counseling and surveillance (ICD-10 - Z71.3) #Weight Management 08/07/2023 thriving Thyroid function is very inconsistent and sporadic at the moment which can alter and hinder weight loss 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 Consider using apps like [employer], [employer], lose it, stick as needed for self-monitoring and weight management. Consider group exercises. Consider hiring a hearing dog trainer. Regular exercise is carvalho to sustainable health [...] counseling and psychiatry and Dr Andres at [facility]. We would like to cover regular topics [...] software and direct typing Please excuse inadvertent highway research engineer or typing errors, or uncorrected word substitutions Although every attempt has been made by the provider to proofread this document, occasional misspellings and typographical errors may still be present Due to the previous pandemic, and the use of personal protective equipment (PPE) This may decrease voice recognition accuracy Inadvertent highway research engineer errors may occur 06/25/2023 Type 2 diabetes [...] minimum of 6 months The most recent [place] [employer] of clinical endocrinologists and [place] [employer] of endocrinology guidelines recommend patients who [...] track activity level. Consider using apps like [employer], [employer], lose it, stick as needed for self-monitoring and weight management. Consider group exercises. Consider hiring a hearing dog trainer. Regular exercise is carvalho to sustainable health [...] counseling and psychiatry and Dr Andres at [facility]. We would like to cover regular topics [...] software and direct typing Please excuse inadvertent highway research engineer or typing errors, or uncorrected word substitutions Although every attempt has been made by the provider to proofread this document, occasional misspellings and typographical errors may still be present Due to the previous pandemic, and the use of personal protective equipment (PPE) This may decrease voice recognition accuracy Inadvertent highway research engineer errors may occur 05/08/2023 BMI 50.0-59.9, adult [...] minimum of 6 months The most recent [place] [employer] of clinical endocrinologists and [place] [employer] of endocrinology guidelines recommend patients who [...] track activity level. Consider using apps like [employer], [employer], lose it, stick as needed for self-monitoring and weight management. Consider group exercises. Consider hiring a hearing dog trainer. Regular exercise is carvalho to sustainable health [...] counseling and psychiatry and Dr Andres at [facility]. We would like to cover regular topics [...] software and direct typing Please excuse inadvertent highway research engineer or typing errors, or uncorrected word substitutions Although every attempt has been made by the provider to proofread this document, occasional misspellings and typographical errors may still be present Due to the previous pandemic, and the use of personal protective equipment (PPE) This may decrease voice recognition accuracy Inadvertent highway research engineer errors may occur 03/10/2023 BMI 50.0-59.9, adult (ICD-10 - Z68.43) As per HPI dc the sulfonylurea we have cut back her metformin by 50% to 750 mg extended release increase Mounjaro from 12.5 to 15 mg She is Thriving already doing very well on this regimen I will request and coordinate with night time babysitter and primary care In office A1c 5.6 today 02/2023 Total time spent today was 30 minutes of which greater than 50% was spent on coordinating and counseling We are a board certified obesity and weight management practice Patient has trialed behavioral modification, dietary restrictions and exercise for a minimum of 6 months The most recent [place] [employer] of clinical endocrinologists and [place] [employer] of endocrinology guidelines recommend patients who [...] track activity level. Consider using apps like [employer], [employer], lose it, stick as needed for self-monitoring and weight management. Consider group exercises. Consider hiring a hearing dog trainer. Regular exercise is carvalho to sustainable health [...] counseling and psychiatry and Dr Andres at [facility]. We would like to cover regular topics [...] software and direct typing Please excuse inadvertent highway research engineer or typing errors, or uncorrected word substitutions Although every attempt has been made by the provider to proofread this document, occasional misspellings and typographical errors may still be present Due to the previous pandemic, and the use of personal protective equipment (PPE) This may decrease voice recognition accuracy Inadvertent highway research engineer errors may occur 03/10/2023 Graves disease (ICD-10 - E05.00) As per HPI dc the sulfonylurea we have cut back her metformin by 50% to 750 mg extended release increase Mounjaro from 12.5 to 15 mg She is Thriving already doing very well on this regimen I will request and coordinate with night time babysitter and primary care In office A1c 5.6 today 02/2023 Total time spent today was 30 minutes of which greater than 50% was spent on coordinating and counseling We are a board certified obesity and weight management practice Patient has trialed behavioral modification, dietary restrictions and exercise for a minimum of 6 months The most recent [place] [employer] of clinical endocrinologists and [place] [employer] of endocrinology guidelines recommend patients who [...] track activity level. Consider using apps like [employer], [employer], lose it, stick as needed for self-monitoring and weight management. Consider group exercises. Consider hiring a hearing dog trainer. Regular exercise is carvalho to sustainable health [...] counseling and psychiatry and Dr Andres at [facility]. We would like to cover regular topics [...] software and direct typing Please excuse inadvertent highway research engineer or typing errors, or uncorrected word substitutions Although every attempt has been made by the provider to proofread this document, occasional misspellings and typographical errors may still be present Due to the previous pandemic, and the use of personal protective equipment (PPE) This may decrease voice recognition accuracy Inadvertent highway research engineer errors may occur 05/08/2023 Graves disease (ICD-10 [...] minimum of 6 months The most recent [place] [employer] of clinical endocrinologists and [place] [employer] end[employer]inology guidelines recommend patients who [...] track activity level. Consider using apps like [employer], [employer], lose it, stick as needed for self-monitoring and weight management. Consider group exercises. Consider hiring a hearing dog trainer. Regular exercise is carvalho to sustainable health [...] counseling and psychiatry and Dr Andres at [facility]. We would like to cover regular topics [...] software and direct typing Please excuse inadvertent highway research engineer or typing errors, or uncorrected word substitutions Although every attempt has been made by the provider to proofread this document, occasional misspellings and typographical errors may still be present Due to the previous pandemic, and the use of personal protective equipment (PPE) This may decrease voice recognition accuracy Inadvertent highway research engineer errors may occur 06/25/2023 Chronic anticoagulation (ICD-10 [...] minimum of 6 months The most recent [place] [employer] of clinical endocrinologists and [place] [employer] end[employer]in[employer] guidelines recommend patients who [...] track activity level. Consider using apps like [employer], [employer], lose it, stick as needed for self-monitoring and weight management. Consider group exercises. Consider hiring a hearing dog trainer. Regular exercise is carvalho to sustainable health [...] counseling and psychiatry and Dr Andres at [facility]. We would like to cover regular topics [...] software and direct typing Please excuse inadvertent highway research engineer or typing errors, or uncorrected word substitutions Although every attempt has been made by the provider to proofread this document, occasional misspellings and typographical errors may still be present Due to the previous pandemic, and the use of personal protective equipment (PPE) This may decrease voice recognition accuracy Inadvertent highway research engineer errors may occur 10/16/2023 Dietary counseling and surveillance (ICD-10 - Z71.3) #Weight Management 10/16/2023 Labs reviewed from [facility] September 2023 thriving Given ongoing weight loss this may be a recurrent problem until her weight stabilizes 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 Consider using apps like Ch[employer], [employer], lose it, stick as needed for self-monitoring and weight management. Consider group exercises. Consider hiring a hearing dog trainer. Regular exercise is carvalho to sustainable health [...] counseling and psychiatry and Dr Andres at [facility]. We would like to cover regular topics [...] software and direct typing Please excuse inadvertent highway research engineer or typing errors, or uncorrected word substitutions Although every attempt has been made by the provider to proofread this document, occasional misspellings and typographical errors may still be present Due to the previous pandemic, and the use of personal protective equipment (PPE) This may decrease voice recognition accuracy Inadvertent highway research engineer errors may occur 08/07/2023 Type 2 diabetes mellitus without complication, without long-term current use of insulin (ICD-10 - E11.9) #Weight Management 08/07/2023 thriving Thyroid function is very inconsistent and sporadic at the moment which can alter and hinder weight loss 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 Consider using apps like Chrends, [employer], lose it, stick as needed for self-monitoring and weight management. Consider group exercises. Consider hiring a hearing dog trainer. Regular exercise is carvalho to sustainable health [...] counseling and psychiatry and Dr Andres at [facility]. We would like to cover regular topics [...] software and direct typing Please excuse inadvertent highway research engineer or typing errors, or uncorrected word substitutions Although every attempt has been made by the provider to proofread this document, occasional misspellings and typographical errors may still be present Due to the previous pandemic, and the use of personal protective equipment (PPE) This may decrease voice recognition accuracy Inadvertent highway research engineer errors may occur 12/18/2023 Dietary counseling and surveillance (ICD-10 - Z71.3) #Weight Management 12/18/2023 Labs reviewed from [facility] September 2023 thriving Given ongoing weight loss this may be a recurrent problem until her weight stabilizes 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 and rechecking labs every 4 weeks or [...] minimum of 6 months The most recent [place] [employer] endocrinologists and [place] [employer] guidelines recommend patients who [...] software and direct typing Please excuse inadvertent highway research engineer or typing errors, or uncorrected word substitutions Although every attempt has been made by the provider to proofread this document, occasional misspellings and typographical errors may still be present Due to the previous pandemic, and the use of personal protective equipment (PPE) This may decrease voice recognition accuracy Inadvertent highway research engineer errors may occur 10/16/2023 Type 2 diabetes mellitus without complication, without long-term current use of insulin (ICD-10 - E11.9) #Weight Management 10/16/2023 Labs reviewed from [facility] September 2023 thriving Given ongoing weight loss this may be a recurrent problem until her weight stabilizes 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 Consider using apps like Ch[employer], [employer], lose it, stick as needed for self-monitoring and weight management. Consider group exercises. Consider hiring a hearing dog trainer. Regular exercise is carvalho to sustainable health [...] counseling and psychiatry and Dr Andres at [facility]. We would like to cover regular topics [...] software and direct typing Please excuse inadvertent highway research engineer or typing errors, or uncorrected word substitutions Although every attempt has been made by the provider to proofread this document, occasional misspellings and typographical errors may still be present Due to the previous pandemic, and the use of personal protective equipment (PPE) This may decrease voice recognition accuracy Inadvertent highway research engineer errors may occur 12/18/2023 Type 2 diabetes mellitus without complication, without long-term current use of insulin (ICD-10 - E11.9) #Weight Management 12/18/2023 Labs reviewed from [facility] September 2023 thriving Given ongoing weight loss this may be a recurrent problem until her weight stabilizes 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 and rechecking labs every 4 weeks or [...] minimum of 6 months The most recent [place] [employer] endocrinologists and [place] [employer] guidelines recommend patients who [...] software and direct typing Please excuse inadvertent highway research engineer or typing errors, or uncorrected word substitutions Although every attempt has been made by the provider to proofread this document, occasional misspellings and typographical errors may still be present Due to the previous pandemic, and the use of personal protective equipment (PPE) This may decrease voice recognition accuracy Inadvertent highway research engineer errors may occur 08/07/2023 Graves disease (ICD-10 - E05.00) #Weight Management 08/07/2023 thriving Thyroid function is very inconsistent and sporadic at the moment which can alter and hinder weight loss 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 Consider using apps like Ch[employer], [employer], lose it, stick as needed for self-monitoring and weight management. Consider group exercises. Consider hiring a hearing dog trainer. Regular exercise is carvalho to sustainable health [...] counseling and psychiatry and Dr Andres at [facility]. We would like to cover regular topics [...] software and direct typing Please excuse inadvertent highway research engineer or typing errors, or uncorrected word substitutions Although every attempt has been made by the provider to proofread this document, occasional misspellings and typographical errors may still be present Due to the previous pandemic, and the use of personal protective equipment (PPE) This may decrease voice recognition accuracy Inadvertent highway research engineer errors may occur 06/25/2023 PAF (paroxysmal atrial [...] minimum of 6 months The most recent [place] [employer] endocrinologists and [place] [employer] guidelines recommend patients who [...] track activity level. Consider using apps like Ch[employer], [employer], lose it, stick as needed for self-monitoring and weight management. Consider group exercises. Consider hiring a hearing dog trainer. Regular exercise is carvalho to sustainable health [...] counseling and psychiatry and Dr Andres at [facility]. We would like to cover regular topics [...] software and direct typing Please excuse inadvertent highway research engineer or typing errors, or uncorrected word substitutions Although every attempt has been made by the provider to proofread this document, occasional misspellings and typographical errors may still be present Due to the previous pandemic, and the use of personal protective equipment (PPE) This may decrease voice recognition accuracy Inadvertent highway research engineer errors may occur 05/08/2023 Type 2 diabetes [...] minimum of 6 months The most recent [place] [employer] clinical endocrinologists and [place] [employer] guidelines recommend patients who [...] track activity level. Consider using apps like Ch[employer], [employer]fitnesspal, lose it, stick as needed for self-monitoring and weight management. Consider group exercises. Consider hiring a hearing dog trainer. Regular exercise is carvalho to sustainable health [...] counseling and psychiatry and Dr Andres at [facility]. We would like to cover regular topics [...] software and direct typing Please excuse inadvertent highway research engineer or typing errors, or uncorrected word substitutions Although every attempt has been made by the provider to proofread this document, occasional misspellings and typographical errors may still be present Due to the previous pandemic, and the use of personal protective equipment (PPE) This may decrease voice recognition accuracy Inadvertent highway research engineer errors may occur 03/10/2023 Type 2 diabetes mellitus without complication, without long-term current use of insulin (ICD-10 - E11.9) As per HPI dc the sulfonylurea we have cut back her metformin by 50% to 750 mg extended release increase Mounjaro from 12.5 to 15 mg She is Thriving already doing very well on this regimen I will request and coordinate with night time babysitter and primary care In office A1c 5.6 today 02/2023 Total time spent today was 30 minutes of which greater than 50% was spent on coordinating and counseling We are a board certified obesity and weight management practice Patient has trialed behavioral modification, dietary restrictions and exercise for a minimum of 6 months The most recent [place] [employer] clinical endocrinologists and [place] [employer] guidelines recommend patients who [...] track activity level. Consider using apps like Ch[employer], myfitnesspal, lose it, stick as needed for self-monitoring and weight management. Consider group exercises. Consider hiring a hearing dog trainer. Regular exercise is carvalho to sustainable health [...] counseling and psychiatry and Dr Andres at [facility]. We would like to cover regular topics [...] software and direct typing Please excuse inadvertent highway research engineer or typing errors, or uncorrected word substitutions Although every attempt has been made by the provider to proofread this document, occasional misspellings and typographical errors may still be present Due to the previous pandemic, and the use of personal protective equipment (PPE) This may decrease voice recognition accuracy Inadvertent highway research engineer errors may occur 03/10/2023 Chronic anticoagulation (ICD-10 - Z79.01) As per HPI dc the sulfonylurea we have cut back her metformin by 50% to 750 mg extended release increase Mounjaro from 12.5 to 15 mg She is Thriving already doing very well on this regimen I will request and coordinate with night time babysitter and primary care In office A1c 5.6 today 02/2023 Total time spent today was 30 minutes of which greater than 50% was spent on coordinating and counseling We are a board certified obesity and weight management practice Patient has trialed behavioral modification, dietary restrictions and exercise for a minimum of 6 months The most recent [place] [employer] clinical endocrinologists and [place] [employer] guidelines recommend patients who [...] track activity level. Consider using apps like Ch[employer], [employer], lose it, stick as needed for self-monitoring and weight management. Consider group exercises. Consider hiring a hearing dog trainer. Regular exercise is carvalho to sustainable health [...] counseling and psychiatry and Dr Andres at [facility]. We would like to cover regular topics [...] software and direct typing Please excuse inadvertent highway research engineer or typing errors, or uncorrected word substitutions Although every attempt has been made by the provider to proofread this document, occasional misspellings and typographical errors may still be present Due to the previous pandemic, and the use of personal protective equipment (PPE) This may decrease voice recognition accuracy Inadvertent highway research engineer errors may occur 05/08/2023 Chronic anticoagulation (ICD-10 [...] minimum of 6 months The most recent [place] [employer] clinical endocrinologists and [place] [employer] guidelines recommend patients who [...] track activity level. Consider using apps like Chrends, [employer], lose it, stick as needed for self-monitoring and weight management. Consider group exercises. Consider hiring a hearing dog trainer. Regular exercise is carvalho to sustainable health [...] counseling and psychiatry and Dr Andres at [facility]. We would like to cover regular topics [...] software and direct typing Please excuse inadvertent highway research engineer or typing errors, or uncorrected word substitutions Although every attempt has been made by the provider to proofread this document, occasional misspellings and typographical errors may still be present Due to the previous pandemic, and the use of personal protective equipment (PPE) This may decrease voice recognition accuracy Inadvertent highway research engineer errors may occur 06/25/2023 NICHOLE (obstructive sleep [...] minimum of 6 months The most recent [place] [employer] clinical endocrinologists and [place] [employer] end[employer] guidelines recommend patients who [...] track activity level. Consider using apps like Chrends, [employer], lose it, stick as needed for self-monitoring and weight management. Consider group exercises. Consider hiring a hearing dog trainer. Regular exercise is carvalho to sustainable health [...] counseling and psychiatry and Dr Andres at [facility]. We would like to cover regular topics [...] software and direct typing Please excuse inadvertent highway research engineer or typing errors, or uncorrected word substitutions Although every attempt has been made by the provider to proofread this document, occasional misspellings and typographical errors may still be present Due to the previous pandemic, and the use of personal protective equipment (PPE) This may decrease voice recognition accuracy Inadvertent highway research engineer errors may occur 08/07/2023 Chronic anticoagulation (ICD-10 - Z79.01) #Weight Management 08/07/2023 thriving Thyroid function is very inconsistent and sporadic at the moment which can alter and hinder weight loss 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 Consider using apps like Chrends, [employer], lose it, stick as needed for self-monitoring and weight management. Consider group exercises. Consider hiring a hearing dog trainer. Regular exercise is carvalho to sustainable health [...] counseling and psychiatry and Dr Andres at [facility]. We would like to cover regular topics [...] software and direct typing Please excuse inadvertent highway research engineer or typing errors, or uncorrected word substitutions Although every attempt has been made by the provider to proofread this document, occasional misspellings and typographical errors may still be present Due to the previous pandemic, and the use of personal protective equipment (PPE) This may decrease voice recognition accuracy Inadvertent highway research engineer errors may occur 12/18/2023 Graves disease (ICD-10 - E05.00) #Weight Management 12/18/2023 Labs reviewed from [facility] September 2023 thriving Given ongoing weight loss this may be a recurrent problem until her weight stabilizes 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 and rechecking labs every 4 weeks or [...] minimum of 6 months The most recent [place] [employer] clinical endocrinologists and [place] [employer] guidelines recommend patients who [...] software and direct typing Please excuse inadvertent highway research engineer or typing errors, or uncorrected word substitutions Although every attempt has been made by the provider to proofread this document, occasional misspellings and typographical errors may still be present Due to the previous pandemic, and the use of personal protective equipment (PPE) This may decrease voice recognition accuracy Inadvertent highway research engineer errors may occur 10/16/2023 Graves disease (ICD-10 - E05.00) #Weight Management 10/16/2023 Labs reviewed from [facility] September 2023 thriving Given ongoing weight loss this may be a recurrent problem until her weight stabilizes 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 Consider using apps like Chrends, myfitnesspal, lose it, stick as needed for self-monitoring and weight management. Consider group exercises. Consider hiring a hearing dog trainer. Regular exercise is carvalho to sustainable health [...] counseling and psychiatry and Dr Andres at [facility]. We would like to cover regular topics [...] software and direct typing Please excuse inadvertent highway research engineer or typing errors, or uncorrected word substitutions Although every attempt has been made by the provider to proofread this document, occasional misspellings and typographical errors may still be present Due to the previous pandemic, and the use of personal protective equipment (PPE) This may decrease voice recognition accuracy Inadvertent highway research engineer errors may occur 12/18/2023 Chronic anticoagulation (ICD-10 - Z79.01) #Weight Management 12/18/2023 Labs reviewed from [facility] September 2023 thriving Given ongoing weight loss this may be a recurrent problem until her weight stabilizes 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 and rechecking labs every 4 weeks or [...] minimum of 6 months The most recent [place] [employer] endocrinologists and [place] [employer] guidelines recommend patients who [...] software and direct typing Please excuse inadvertent highway research engineer or typing errors, or uncorrected word substitutions Although every attempt has been made by the provider to proofread this document, occasional misspellings and typographical errors may still be present Due to the previous pandemic, and the use of personal protective equipment (PPE) This may decrease voice recognition accuracy Inadvertent highway research engineer errors may occur 10/16/2023 Chronic anticoagulation (ICD-10 - Z79.01) #Weight Management 10/16/2023 Labs reviewed from [facility] September 2023 thriving Given ongoing weight loss this may be a recurrent problem until her weight stabilizes 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 Consider using apps like Chrends, myfitnesspal, lose it, stick as needed for self-monitoring and weight management. Consider group exercises. Consider hiring a hearing dog trainer. Regular exercise is carvalho to sustainable health [...] counseling and psychiatry and Dr Andres at [facility]. We would like to cover regular topics [...] software and direct typing Please excuse inadvertent highway research engineer or typing errors, or uncorrected word substitutions Although every attempt has been made by the provider to proofread this document, occasional misspellings and typographical errors may still be present Due to the previous pandemic, and the use of personal protective equipment (PPE) This may decrease voice recognition accuracy Inadvertent highway research engineer errors may occur 08/07/2023 PAF (paroxysmal atrial fibrillation) (ICD-10 - I48.0) #Weight Management 08/07/2023 thriving Thyroid function is very inconsistent and sporadic at the moment which can alter and hinder weight loss 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 Consider using apps like Ch[employer], [employer], lose it, stick as needed for self-monitoring and weight management. Consider group exercises. Consider hiring a hearing dog trainer. Regular exercise is carvalho to sustainable health [...] counseling and psychiatry and Dr Andres at [facility]. We would like to cover regular topics [...] software and direct typing Please excuse inadvertent highway research engineer or typing errors, or uncorrected word substitutions Although every attempt has been made by the provider to proofread this document, occasional misspellings and typographical errors may still be present Due to the previous pandemic, and the use of personal protective equipment (PPE) This may decrease voice recognition accuracy Inadvertent highway research engineer errors may occur 06/25/2023 BMI 45.0-49.9, adult [...] minimum of 6 months The most recent [place] [employer] endocrinologists and [place] [employer] guidelines recommend patients who [...] track activity level. Consider using apps like [employer] excercise, myfitnesspal, lose it, stick as needed for self-monitoring and weight management. Consider group exercises. Consider hiring a hearing dog trainer. Regular exercise is carvalho to sustainable health [...] counseling and psychiatry and Dr Andres at [facility]. We would like to cover regular topics [...] software and direct typing Please excuse inadvertent highway research engineer or typing errors, or uncorrected word substitutions Although every attempt has been made by the provider to proofread this document, occasional misspellings and typographical errors may still be present Due to the previous pandemic, and the use of personal protective equipment (PPE) This may decrease voice recognition accuracy Inadvertent highway research engineer errors may occur 05/08/2023 PAF (paroxysmal atrial [...] minimum of 6 months The most recent [place] [employer] clinical endocrinologists and [place] [employer] guidelines recommend patients who [...] track activity level. Consider using apps like Ch[employer], [employer], lose it, stick as needed for self-monitoring and weight management. Consider group exercises. Consider hiring a hearing dog trainer. Regular exercise is carvalho to sustainable health [...] counseling and psychiatry and Dr Andres at [facility]. We would like to cover regular topics [...] software and direct typing Please excuse inadvertent highway research engineer or typing errors, or uncorrected word substitutions Although every attempt has been made by the provider to proofread this document, occasional misspellings and typographical errors may still be present Due to the previous pandemic, and the use of personal protective equipment (PPE) This may decrease voice recognition accuracy Inadvertent highway research engineer errors may occur 03/10/2023 PAF (paroxysmal atrial fibrillation) (ICD-10 - I48.0) As per HPI dc the sulfonylurea we have cut back her metformin by 50% to 750 mg extended release increase Mounjaro from 12.5 to 15 mg She is Thriving already doing very well on this regimen I will request and coordinate with night time babysitter and primary care In office A1c 5.6 today 02/2023 Total time spent today was 30 minutes of which greater than 50% was spent on coordinating and counseling We are a board certified obesity and weight management practice Patient has trialed behavioral modification, dietary restrictions and exercise for a minimum of 6 months The most recent [place] [employer] of clinical endocrinologists and [place] [employer] of endocrin[employer] guidelines recommend patients who [...] track activity level. Consider using apps like Chrends, [employer], lose it, stick as needed for self-monitoring and weight management. Consider group exercises. Consider hiring a hearing dog trainer. Regular exercise is carvalho to sustainable health [...] counseling and psychiatry and Dr Andres at [facility]. We would like to cover regular topics [...] software and direct typing Please excuse inadvertent highway research engineer or typing errors, or uncorrected word substitutions Although every attempt has been made by the provider to proofread this document, occasional misspellings and typographical errors may still be present Due to the previous pandemic, and the use of personal protective equipment (PPE) This may decrease voice recognition accuracy Inadvertent highway research engineer errors may occur 03/10/2023 NICHOLE (obstructive sleep apnea) (ICD-10 - G47.33) As per HPI dc the sulfonylurea we have cut back her metformin by 50% to 750 mg extended release increase Mounjaro from 12.5 to 15 mg She is Thriving already doing very well on this regimen I will request and coordinate with night time babysitter and primary care In office A1c 5.6 today 02/2023 Total time spent today was 30 minutes of which greater than 50% was spent on coordinating and counseling We are a board certified obesity and weight management practice Patient has trialed behavioral modification, dietary restrictions and exercise for a minimum of 6 months The most recent [place] [employer] of clinical endocrinologists and [place] [employer] endocrin[employer] guidelines recommend patients who [...] track activity level. Consider using apps like Chrends, [employer], lose it, stick as needed for self-monitoring and weight management. Consider group exercises. Consider hiring a hearing dog trainer. Regular exercise is carvalho to sustainable health [...] counseling and psychiatry and Dr Andres at [facility]. We would like to cover regular topics [...] software and direct typing Please excuse inadvertent highway research engineer or typing errors, or uncorrected word substitutions Although every attempt has been made by the provider to proofread this document, occasional misspellings and typographical errors may still be present Due to the previous pandemic, and the use of personal protective equipment (PPE) This may decrease voice recognition accuracy Inadvertent highway research engineer errors may occur 05/08/2023 NICHOLE (obstructive sleep [...] minimum of 6 months The most recent [place] [employer] of clinical endocrinologists and [place] [employer] of endocrinology guidelines recommend patients who [...] track activity level. Consider using apps like Chrends, [employer], lose it, stick as needed for self-monitoring and weight management. Consider group exercises. Consider hiring a hearing dog trainer. Regular exercise is carvalho to sustainable health [...] counseling and psychiatry and Dr Andres at [facility]. We would like to cover regular topics [...] software and direct typing Please excuse inadvertent highway research engineer or typing errors, or uncorrected word substitutions Although every attempt has been made by the provider to proofread this document, occasional misspellings and typographical errors may still be present Due to the previous pandemic, and the use of personal protective equipment (PPE) This may decrease voice recognition accuracy Inadvertent highway research engineer errors may occur 08/07/2023 NICHOLE (obstructive sleep apnea) (ICD-10 - G47.33) #Weight Management 08/07/2023 thriving Thyroid function is very inconsistent and sporadic at the moment which can alter and hinder weight loss 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 Consider using apps like Chrends, [employer], lose it, stick as needed for self-monitoring and weight management. Consider group exercises. Consider hiring a hearing dog trainer. Regular exercise is carvalho to sustainable health [...] counseling and psychiatry and Dr Andres at [facility]. We would like to cover regular topics [...] software and direct typing Please excuse inadvertent highway research engineer or typing errors, or uncorrected word substitutions Although every attempt has been made by the provider to proofread this document, occasional misspellings and typographical errors may still be present Due to the previous pandemic, and the use of personal protective equipment (PPE) This may decrease voice recognition accuracy Inadvertent highway research engineer errors may occur 10/16/2023 PAF (paroxysmal atrial fibrillation) (ICD-10 - I48.0) #Weight Management 10/16/2023 Labs reviewed from [facility] September 2023 thriving Given ongoing weight loss this may be a recurrent problem until her weight stabilizes 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 Consider using apps like Chrends, [employer], lose it, stick as needed for self-monitoring and weight management. Consider group exercises. Consider hiring a hearing dog trainer. Regular exercise is carvalho to sustainable health [...] counseling and psychiatry and Dr Andres at [facility]. We would like to cover regular topics [...] software and direct typing Please excuse inadvertent highway research engineer or typing errors, or uncorrected word substitutions Although every attempt has been made by the provider to proofread this document, occasional misspellings and typographical errors may still be present Due to the previous pandemic, and the use of personal protective equipment (PPE) This may decrease voice recognition accuracy Inadvertent highway research engineer errors may occur 12/18/2023 PAF (paroxysmal atrial fibrillation) (ICD-10 - I48.0) #Weight Management 12/18/2023 Labs reviewed from [facility] September 2023 thriving Given ongoing weight loss this may be a recurrent problem until her weight stabilizes 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 and rechecking labs every 4 weeks or [...] minimum of 6 months The most recent [place] [employer] of clinical endocrinologists and [place] [employer] of endocrinology guidelines recommend patients who [...] software and direct typing Please excuse inadvertent highway research engineer or typing errors, or uncorrected word substitutions Although every attempt has been made by the provider to proofread this document, occasional misspellings and typographical errors may still be present Due to the previous pandemic, and the use of personal protective equipment (PPE) This may decrease voice recognition accuracy Inadvertent highway research engineer errors may occur 12/18/2023 NICHOLE (obstructive sleep apnea) (ICD-10 - G47.33) #Weight Management 12/18/2023 Labs reviewed from [facility] September 2023 thriving Given ongoing weight loss this may be a recurrent problem until her weight stabilizes 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 and rechecking labs every 4 weeks or [...] minimum of 6 months The most recent [place] [employer] of clinical endocrinologists and [place] [employer] of endocrinology guidelines recommend patients who [...] software and direct typing Please excuse inadvertent highway research engineer or typing errors, or uncorrected word substitutions Although every attempt has been made by the provider to proofread this document, occasional misspellings and typographical errors may still be present Due to the previous pandemic, and the use of personal protective equipment (PPE) This may decrease voice recognition accuracy Inadvertent highway research engineer errors may occur 10/16/2023 NICHOLE (obstructive sleep apnea) (ICD-10 - G47.33) #Weight Management 10/16/2023 Labs reviewed from [facility] September 2023 thriving Given ongoing weight loss this may be a recurrent problem until her weight stabilizes 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 Consider using apps like Chrends, myfitnesspal, lose it, stick as needed for self-monitoring and weight management. Consider group exercises. Consider hiring a hearing dog trainer. Regular exercise is carvalho to sustainable health [...] counseling and psychiatry and Dr Andres at [facility]. We would like to cover regular topics [...] software and direct typing Please excuse inadvertent highway research engineer or typing errors, or uncorrected word substitutions Although every attempt has been made by the provider to proofread this document, occasional misspellings and typographical errors may still be present Due to the previous pandemic, and the use of personal protective equipment (PPE) This may decrease voice recognition accuracy Inadvertent highway research engineer errors may occur PLAN OF TREATMENT Next Appt Details Provider Name:MADDIE REYES, 03/17/2024 01:45:00 PM, [address] [facility], [facility] [address], [address], Insurance Providers Payer Name Payer Address Payer Phone Subscriber Number Group Number Insured Name Patient Relationship to Insured Coverage Start Date Coverage End Date [facility] [address] [place] [address] [phone] [id number] Corazon Cortez Self - patient is the insured MEDICAL (GENERAL) HISTORY Medical History History ICD Code diabetes mellitus graves disease afib gastroesophageal reflux disease (GERD) hyperlipidemia asthma sleep apnea
--- OUTSIDE RECORDS SUMMARY | 2024-02-11 10:06 | XMS_ITS | Patient Health Record ---
[facility] Address [address] [facility] [place] [address] Care Team Providers Care Taker Off Name Role Phone Guanakito Tyler MD Primary Care Provider Lily Corral Unavailable [phone] Allergies Allergen (clinical drug ingredient) Drug/Non Drug Allergy documented on EMR Reaction Allergy Type Onset Date Status ibuprofen Advil on blood thinners Drug Allergy Active naproxen Aleve on blood thinners Drug Allergy Active Motrin on blood thinners Drug Allergy Active Results Component Value Reference Range Notes HEMOGLOBIN A1C (GLYCOHEMOGLO BIN) Reviewed date:04/18/2023 09:07:40 AM Interpretation: Performing Lab: Notes/Report: HEMOGLOBIN A1C % (HH) 5.6 HEMOGLOBIN A1C (GLYCOHEMOGLO BIN) Reviewed date:08/29/2023 09:18:07 AM Interpretation: Performing Lab: Notes/Report: HEMOGLOBIN A1C % (HH) 6.2 HEMOGLOBIN A1C (GLYCOHEMOGLO BIN) Reviewed date:11/14/2023 10:19:34 AM Interpretation: Performing Lab: Notes/Report: TOTAL HEMOGLOBIN (HGBA1C) 5.5 HEMOGLOBIN A1C (GLYCOHEMOGLO BIN) Reviewed date:01/27/2024 09:20:34 AM Interpretation: Performing Lab: Notes/Report: TOTAL HEMOGLOBIN (HGBA1C) 5.8 Reason For Referral No Information Medications Medication [...] Problem Acquired hammer toe of right foot (497264070128 9105) Other hammer toe(s) (acquired), right foot (M20.41) Active confirmed Problem Acquired hammer toe of left foot (778416349781 9103) Other hammer toe(s) (acquired), left foot (M20.42) Active confirmed Problem [id number] Hammer toe of le ft foot (M20.42) Active confirmed Problem [id number] Type 2 diabetes mellitus with polyneuropathy (E11.42) Active confirmed Vital Signs Blood pressure diastolic 64 mm Hg 01/27/2024 Height 5ft6in in 01/27/2024 Blood pressure systolic 110 mm Hg 01/27/2024 Weight 303 lbs 01/27/2024 BMI 48.9 kg/m2 01/27/2024 Encounters Encounter Location Date Provider Diagnosis [facility] [address] [place] [address] 04/18/2023 Lily Toledo Type 2 diabetes mellitus with polyneuropathy E11.42 ; Tinea pedis B35.3 ; Other hammer toe(s) (acquired), right foot M20.41 and Other hammer toe(s) (acquired), left foot M20.[address] [address] 06/27/2023 Lily Toledo Type 2 diabetes mellitus with polyneuropathy E11.42 and Tinea pedis B35.[address] [address] 08/29/2023 Lily Toledo Type 2 diabetes mellitus with polyneuropathy E11.42 ; Tinea pedis B35.3 and Edema, lower extremity R60.[address] [address] 11/14/2023 Lily Toledo Type 2 diabetes mellitus with polyneuropathy E11.42 and Tinea pedis B35.[address] [address] 01/27/2024 Lily Toledo Type 2 diabetes mellitus with polyneuropathy E11.42 Assessments Encounter Date Diagnosis (ICD Code) Assessment Notes Treatment Notes Treatment Clinical Notes Section Notes 04/18/2023 Type 2 diabetes mellitus with polyneuropathy [...] B35.3) 08/29/2023 Tinea pedis (ICD-10 - B35.3) 04/18/2023 Other hammer toe(s) (acquired), right foot (ICD-10 - M20.41) Patient Educated with: DIABETIC FOOT CARE INSTRUCTIONS. pdf (DIABETIC FOOT CARE INSTRUCTIONS. pdf) 08/29/2023 Edema, lower extremity (ICD-10 - R60.0) 04/18/2023 Other hammer toe(s) (acquired), left foot (ICD-10 - M20.42) 06/27/2023 Other Plan Of Treatment Next Appt Details Provider Name:Lily freeman, 04/09/2024 09:30:00 AM, [address] [place] [address], [phone], Insurance Providers Payer Name Payer Address Payer Phone Subscriber Number Group Number Insured Name Patient Relationship to Insured Coverage Start Date Coverage End Date [facility] [address] [place] [address] [phone] [id number] Corazon Cortez Self - patient is the insured Medical (General) History Medical History History ICD Code type II diabetes asthma Back,Hip,and Knee pain Broken bones Numbness Sciatica chronic sinusitis thyroid Chicken pox Graves disease A fib schambergs Covid 19 Surgical History Surgery Date(Month/Year) gall bladder Hernia Repair Cardioversion 09/2019 knee, meniscus sx left 11/30/2021
--- OUTSIDE RECORDS SUMMARY | 2024-02-11 10:06 | XMS_ITS ---
[facility] Address [address] [facility] [place] [address] Care Team Providers Care Machine Printer Hose Name Role Phone Guanakito Tyler MD Primary Care Provider Lily Corral Unavailable [phone] Allergies Allergen (clinical drug ingredient) Drug/Non Drug [...] 024 Encounters Encounter Location Date Provider Diagnosis [facility] [place] [address] [place] [address] 01/27/2024 Lily Paris Type 2 diabetes mellitus with polyneuropathy E11.42 Assessments Encounter Date Diagnosis (ICD Code) Assessment Notes Treatment Notes Treatment Clinical Notes Section Notes 01/27/2024 Type 2 diabetes mellitus with polyneuropathy (ICD-10 - E11.42) Plan Of Treatment Next Appt Details Follow Up: 2 Months, Reason: Provider Name:Lily Freeman Maggie freeman, 04/09/2024 09:30:00 AM, [address] [place] [address], [phone], Procedure Notes * Category Sub-Category Detail Notes Keratoma Treatment Parring or Cutting o f Benign Hyperkeratotic Lesion(s) 89588 ( 2-4 Lesions ) - The Benign [...] * Lexi CORTEZOB: [birth year] (53 yo F)Acc No.[id number]:01/27/2024 Progress Note Patient:?Corazon CORTEZ Provider:?Lily Toledo DPM :1970???Age:53 Y???Sex:Female D ate:01/27/2024 Address:[address] [place] [address] [address] [id number] Pcp:Guanakito Tyler MD Subjective: * Chief Complaints: [...] Procedures:?Keratoma Treatment:?Parring or Cutting of Benign Hyperkeratotic Lesion(s)?43443 ( 2-4 Lesions ) - The Benign [...] ING DYSTROPHIC NAILS ANY #, Modifiers: XS 61078 TRIM SKIN LESIONS, 2 TO 4, Modifiers: XS * Follow Up:?2 Months * Images: * Sign off status: Completed true * Provider:?Lily Toledo, DPM Date:?04/2023 Generated for Jeri hauser/Flores/eTwilliesmyoselin on:?02/11/2024 10:05 AM EST History and Physical [...]
--- OUTSIDE RECORDS SUMMARY | 2024-02-11 10:06 | XMS_ITS ---
Author Organization [facility] Address [address] [facility] [place] [address] Care Team Providers Care Crusher Loader Equipment Operator Name Role Phone Guanakito Tyler MD Primary Care Provider Lily Corral Unavailable [phone] Allergies Allergen (clinical drug ingredient) Drug/Non Drug [...] 024 Encounters Encounter Location Date Provider Diagnosis [facility] [address] [address] 08/29/2023 Lily Toledo Type 2 diabetes mellitus [...] Reason: Provider Name:Lily freeman, 04/09/2024 09:30:00 AM, [address] [place] [address], [phone], Procedure Notes * Category Sub-Category Detail Notes Keratoma Treatment Parring or Cutting o f Benign Hyperkeratotic Lesion(s) 87194 ( 2-4 Lesions ) - The Benign [...] * Lexi CORTEZOB: [birth year] (53 yo F)Acc No.[id number]:08/29/2023 Progress Note Patient:?Corazon Cortez Provider:?Lily Toledo DPM :1970???Age:53 Y???Sex:Female D ate:08/29/2023 Address: [address] [id number] Pcp:Guanakito Tyler MD Subjective: * Chief Complaints: [...] Procedures:?Keratoma Treatment:?Parring or Cutting of Benign Hyperkeratotic Lesion(s)?72132 ( 2-4 Lesions ) - The Benign [...] ING DYSTROPHIC NAILS ANY #, Modifiers: XS 56949 TRIM SKIN LESIONS, 2 TO 4, Modifiers: [...] Toledo DPM Date:?06/2023 Generated for Jeri hauser/Flores/Breannaitting on:?02/11/2024 10:06 AM EST History and Physical Notes * [...] FILL TIME: immediate, all digi ts, B/L EDEMA (C): 2/4 , B/L HAILE'S SIGN: absent, B/L PALPABLE CORDS: absent, B/L Nails NAILS are: 1-5 B/L, Elongated, overgrow n, dystrophic
[2024-02-11 10:09] VITALS: BP 130/60; PULSE 76; BMI 46.2
--- NOTE | 2024-02-11 10:09 | MHC.OFFVIS ---
Vital Signs 02/11/24 10:09 Height 5 ft 8 in Weight 303 lb 12.752 oz BMI 46.2 BP 130/60 Blood Pressure Location Lt radial Position Sitting Pulse 76 Pulse Source Monitor Intake Visit Reasons: 6 mth f/up Intake Note: 6 mth f/up Assistant Store Director Required: No Accompanied by: Self / Same As Patient Allergies No Known Allergies Allergy (Verified 02/05/24 08:22) Medication List - Last Reconciled 02/11/24 by Italo Cervantes MD acetaminophen 1,000 mg PO BEDTIME acetaminophen 650 mg PO DAILY apixaban 5 mg PO BID ascorbic acid (vitamin C) (Vitamin C) 500 mg PO DAILY atorvastatin 10 mg PO DAILY cholecalciferol (vitamin D3) (Vitamin D3) 25 mcg PO DAILY diltiazem HCl CD 240 mg PO BEDTIME 90 days flecainide 150 mg (1.5 x 100 mg) PO BID 90 days furosemide 20 mg PO DAILY 90 days magnesium oxide 400 mg PO BID metformin 500mg AM, 1000mg PM methimazole 5 mg PO Q2D naltrexone-bupropion 8-90 mg (Contrave) 2 tabs PO BID omeprazole 20 mg PO DAILY tirzepatide (Mounjaro) 10 mg subcut QWEEK HPI Comments Details: 53-year-old female who is here for follow-up. She recently presented to the clinic with palpitation and was in atrial flutter. She was admitted to the hospital underwent cardioversion. She was discharged home after that on flecainide 150 mg twice a day. She is on apixaban 5 mg twice a day. She has been stable since then. Denying any symptoms currently. she was seen by EP and was advised to lose weight. She had ECG in EP office today at [facility] which showed sinus rhythm. Taking meds. She is losing weight and has been on Mounjaro with better sugar control. 11/18/2022, she returns for follow-up. She has been following with weight management program has lost 16 lb at this stage. She is looking quite focused and has cut back significantly on her sugar intake. She is denying any significant symptoms otherwise. Taking medications regularly. No palpitations on follow-up. 08/06/23: She returns for f/u. She is doing well and has no significant palpitations. She has lost significant weight with Mounjaro. Taking medications regularly. 02/11/24: She is here for follow-up. She is doing well and has no episodes of atrial fibrillation. She is on flecainide 150 mg twice a day and on Eliquis 5 mg twice a day. She is saying that she is hyperthyroid again and is closely following with endocrinology in [facility] Medical History Thickened endometrium Postmenopausal bleeding History of cardioversion Morbid obesity Graves disease Diabetes PAF (paroxysmal atrial fibrillation) Surgical History Hx of cholecystectomy H/O knee surgery History of hernia repair S/P removal of left ovary Family History Father CVD (cardiovascular disease) Heart attack Mother Lung cancer Social History Household Members: Spouse Housing: Apartment Comment: d/c from [facility] Patient Tobacco Use Status: Never used Tobacco Current occupational status: employed Current occupation: [employer], 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 Sexual orientation: Straight/Heterosexual Gender identity: Female Female Reproductive History Menstrual Age of Menarche: 7 Review of Systems Const Denies chills, Denies fatigue, Denies fever(s), Denies frequent falls, Denies weakness, Denies weight gain and Denies weight loss ENT Denies dizziness Card Denies chest pain, Denies leg edema, Denies lightheadedness, Denies palpitations, Denies dyspnea and Denies dyspnea on exertion Resp Denies cough, Denies dyspnea and Denies dyspnea on exertion GI Denies hematochezia Musc Denies abnormal gait, Denies muscle weakness, Denies numbness, Denies radiating pain into limb and Denies tingling Neuro Denies abnormal gait, Denies dizziness, Denies frequent falls, Denies numbness, Denies tingling and Denies weakness Endo Denies fatigue and Denies palpitations Physical Exam Vital Signs: Last Vital Signs Pulse 76 02/11/24 10:09 BP 130/60 02/11/24 10:09 BMI result Body Mass Index 46.2 GENERAL APPEARANCE: in no acute distress, pleasant. NECK: no carotid bruit, no jugular venous distention. SKIN: no suspicious lesions, warm and dry. HEART: no murmurs, regular rate and rhythm. LUNGS: clear to auscultation bilaterally. ABDOMEN: soft, nontender. EXTREMITIES: no edema. PERIPHERAL PULSES: equal. NEUROLOGIC: No gross deficits, AAO X 3 Office Procedures EKG Details: Sinus rhythm 76 beats per minute with first-degree AV block with MA interval of 212 milliseconds, normal axis, poor R-wave progression, QTC 450 milliseconds. [id number], Complete Assessment & Plan Assessment & Plan (1) PAF (paroxysmal atrial fibrillation): Code(s): I48.0 - Paroxysmal atrial fibrillation Category: Medical (2) Atrial flutter: Code(s): I48.92 - Unspecified atrial flutter Category: Medical (3) Peripheral edema: Code(s): R60.9 - Edema, unspecified Category: Medical (4) Graves disease: Code(s): E05.00 - Thyrotoxicosis with diffuse goiter without thyrotoxic crisis or storm Category: Medical (5) Morbid obesity: Code(s): E66.01 - Morbid (severe) obesity due to excess calories Category: Medical Plan Pleasant 53 year female who is here for follow-up. She has known history of atrial fibrillation and flutter in the past. She underwent cardioversion in the past and has been on flecainide 150 mg twice a day. She was referred for ablation but was advised to lose weight. She was referred to weight management program and has been following at [facility] at this point. She is changing her diet and has significantly cut back on her sugar intake. She has lost significant weight with diet and Mounjaro. Doing well from CV viewpoint. Continue flecainide and diltiazem. We will revisit the ablation once she reaches a steady weight after weight loss. Thank you for allowing me to participate in the care of your patient. Please feel free to contact me if you have any questions. Medications: Refilled furosemide 20 mg PO DAILY 90 days 90 tabs 3RF R60.9 - Edema, unspecified Coding Level of Care Code Est Pt Level 4 (27760) Diagnoses PAF (paroxysmal atrial fibrillation) I48.0 Atrial flutter I48.92 Peripheral edema R60.9 Graves disease E05.00 Morbid obesity E66.01 CPT Codes EKG - CPT: 05476-[id number], Complete ([id number])
== END 2024-02-11 10:34 | disposition home or self-care (01) ==
PROVIDERS: PCP Internal Medicine; Visit Provider Internal Medicine Cardiovascular Disease
DX: I48.0 Paroxysmal atrial fibrillation (principal); I48.92 Unspecified atrial flutter; R60.9 Edema, unspecified; E05.00 Thyrotoxicosis with diffuse goiter without thyrotoxic crisis or storm; E66.01 Morbid (severe) obesity due to excess calories
CPT/HCPCS: 93010; 99214

== ENCOUNTER 2024-02-26 11:10 | Outpatient (AMB) | payer BC, SELFPAY ==
--- NOTE | 2024-02-26 11:11 | MHC.OFFVIS ---
Intake Visit Reasons: EMB results Allergies No Known Allergies Allergy (Verified 02/05/24 08:22) HPI Comments Details: The patient scheduled a telehealth visit after endometrial biopsy. The patient has no complaints, no vaginal bleeding, no feverishness chills or abdominal pain. The endometrial biopsy pathology report showed the following: Superficial strips of benign endometrium and rare endocervical and squamous epithelium; no atypia identified [facility] Medical History Thickened endometrium Postmenopausal bleeding History of cardioversion Morbid obesity Graves disease Diabetes PAF (paroxysmal atrial fibrillation) Surgical History Hx of cholecystectomy H/O knee surgery History of hernia repair S/P removal of left ovary Family History Father CVD (cardiovascular disease) Heart attack Mother Lung cancer Social History Household Members: Spouse Housing: Apartment Comment: d/c from [facility] Patient Tobacco Use Status: Never used Tobacco Current occupational status: employed Current occupation: [employer], 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 Sexual orientation: Straight/Heterosexual Gender identity: Female Female Reproductive History Menstrual Age of Menarche: 7 Review of Systems Const All systems reviewed & are unremarkable except as noted in HPI and below Reports as per HPI and Reports no additional complaints GI Reports no additional complaints Reports no additional complaints Telehealth Telehealth Telehealth Platform: Telephone Location of provider rendering services: practice address Location of patient: address on file Patient Identification confirmed using: Name, : Yes Telehealth method: video Patient verbally consented to treatment: Yes Patient verbally consented to billing insurance company: Yes Patient informed of any privacy concerns related to visit: Yes Assessment & Plan Assessment & Plan (1) Thickened endometrium: Code(s): R93.89 - Abnormal findings on diagnostic imaging of other specified body structures Category: Medical Plan: Discussed with the patient the results of the endometrial biopsy . Discussed with the patient the sensitivity, specificity, positive and negative predictive value, of endometrial biopsy in detecting endometrial pathology including but not limited to endometrial hyperplasia, cancer and other pathology; instructed the patient to call in case any vaginal bleeding bleeding occur, the next step will be to proceed with a diagnostic hysteroscopy/D&C for further endometrial sampling evaluation to rule out endometrial pathology. All questions answered and the patient verbalized understanding and agreed with the plan. I spent a total of 20 minutes reviewing the chart, talking to the patient via video and documenting in the medical record. Coding Level of Care Code Tele Est Pt Level 3 (67303) Diagnoses Thickened endometrium R93.89
--- OUTSIDE RECORDS SUMMARY | 2024-02-26 12:08 | XMS_ITS ---
Author Organization [facility] Address [address] [place] [id number] Care Team Providers Care Hot Mill Operator Name Role Phone AMY MADDIE Unavailable [phone] MEDICATIONS Medication SIG (Take, Route, Fr equency, [...] ctive Encounters Encounter Location Date Provider Diagnosis [facility] [address] [address] 11/12/2023 MADDIE AMY Morbid obesity E66.0 1 ASSESSMENTS Encounter Date [...] Provider Name:MADDIE REYES, 03/17/2024 01:45:00 PM, [address] [address], [place], [address], Progress Notes * Lexi CORTEZOB: 969 (53 yo F)Acc No.[id number]:11/12/2023 Patient:??Corazon CORTEZ :1970?Age:53 Y?Sex:Fe male Address:[address] [place] [address] [place] [address] * Refills?? Refill Contrave Tablet Extended Release [...]
--- OUTSIDE RECORDS SUMMARY | 2024-02-26 12:08 | XMS_ITS ---
Author Organization [facility] Address [address] [place] [phone] Care Team Providers Care Plater Printed Circuit Board Panels Name Role Phone MADDIE REYES Unavailable [phone] ALLERGIES Allergen (clinical drug ingredient) Drug/Non Drug [...] 12/18/2023 Encounters Encounter Location Date Provider Diagnosis [facility] 119 299 [facility] [address] [place] [address] 12/18/2023 MADDIE BRISENOMihai Morbid obesity E66.0 1 [...] E66.01) #Weight Management 12/18/2023 Labs reviewed from [facility] September 2023 thriving Given ongoing weight loss this may be a recurrent problem until her weight stabilizes 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 household chores and rechecking labs every 4 weeks or [...] minimum of 6 months The most recent [place] [employer] of clinical endocrinologists and [place] [employer] of endocrinology guidelines recommend patients who [...] software and direct typing Please excuse inadvertent sonogram technician or typing errors, or uncorrected word substitutions Although every attempt has been made by the provider to proofread this document, occasional misspellings and typographical errors may still be present Due to the previous pandemic, and the use of personal protective equipment (PPE) This may decrease voice recognition accuracy Inadvertent sonogram technician errors may occur 12/18/2023 BMI 45.0-49.9, adult (ICD-10 - Z68.42) #Weight Management 12/18/2023 Labs reviewed from [facility] September 2023 thriving Given ongoing weight loss this may be a recurrent problem until her weight stabilizes 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 household chores and rechecking labs every 4 weeks or [...] minimum of 6 months The most recent [place] [employer] of clinical endocrinologists and [place] [employer] endocrin[employer] guidelines recommend patients who [...] software and direct typing Please excuse inadvertent sonogram technician or typing errors, or uncorrected word substitutions Although every attempt has been made by the provider to proofread this document, occasional misspellings and typographical errors may still be present Due to the previous pandemic, and the use of personal protective equipment (PPE) This may decrease voice recognition accuracy Inadvertent sonogram technician errors may occur 12/18/2023 Dietary counseling and surveillance (ICD-10 - Z71.3) #Weight Management 12/18/2023 Labs reviewed from [facility] September 2023 thriving Given ongoing weight loss this may be a recurrent problem until her weight stabilizes 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 household chores and rechecking labs every 4 weeks or [...] minimum of 6 months The most recent [place] [employer] of clinical endocrinologists and [place] [employer] of endocrinology guidelines recommend patients who [...] software and direct typing Please excuse inadvertent sonogram technician or typing errors, or uncorrected word substitutions Although every attempt has been made by the provider to proofread this document, occasional misspellings and typographical errors may still be present Due to the previous pandemic, and the use of personal protective equipment (PPE) This may decrease voice recognition accuracy Inadvertent sonogram technician errors may occur 12/18/2023 Type 2 diabetes mellitus without complication, without long-term current use of insulin (ICD-10 - E11.9) #Weight Management 12/18/2023 Labs reviewed from [facility] September 2023 thriving Given ongoing weight loss this may be a recurrent problem until her weight stabilizes 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 household chores and rechecking labs every 4 weeks or [...] minimum of 6 months The most recent [place] [employer] of clinical endocrinologists and [place] [employer] of endocrinology guidelines recommend patients who [...] software and direct typing Please excuse inadvertent sonogram technician or typing errors, or uncorrected word substitutions Although every attempt has been made by the provider to proofread this document, occasional misspellings and typographical errors may still be present Due to the previous pandemic, and the use of personal protective equipment (PPE) This may decrease voice recognition accuracy Inadvertent sonogram technician errors may occur 12/18/2023 Graves disease (ICD-10 - E05.00) #Weight Management 12/18/2023 Labs reviewed from [facility] September 2023 thriving Given ongoing weight loss this may be a recurrent problem until her weight stabilizes 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 household chores and rechecking labs every 4 weeks or [...] minimum of 6 months The most recent [place] [employer] of clinical endocrinologists and [place] [employer] of endocrinology guidelines recommend patients who [...] software and direct typing Please excuse inadvertent sonogram technician or typing errors, or uncorrected word substitutions Although every attempt has been made by the provider to proofread this document, occasional misspellings and typographical errors may still be present Due to the previous pandemic, and the use of personal protective equipment (PPE) This may decrease voice recognition accuracy Inadvertent sonogram technician errors may occur 12/18/2023 Chronic anticoagulation (ICD-10 - Z79.01) #Weight Management 12/18/2023 Labs reviewed from [facility] September 2023 thriving Given ongoing weight loss this may be a recurrent problem until her weight stabilizes 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 household chores and rechecking labs every 4 weeks or [...] minimum of 6 months The most recent [place] [employer] of clinical endocrinologists and [place] [employer] of endocrinology guidelines recommend patients who [...] software and direct typing Please excuse inadvertent sonogram technician or typing errors, or uncorrected word substitutions Although every attempt has been made by the provider to proofread this document, occasional misspellings and typographical errors may still be present Due to the previous pandemic, and the use of personal protective equipment (PPE) This may decrease voice recognition accuracy Inadvertent sonogram technician errors may occur 12/18/2023 PAF (paroxysmal atrial fibrillation) (ICD-10 - I48.0) #Weight Management 12/18/2023 Labs reviewed from [facility] September 2023 thriving Given ongoing weight loss this may be a recurrent problem until her weight stabilizes 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 household chores and rechecking labs every 4 weeks or [...] minimum of 6 months The most recent [place] [employer] of clinical endocrinologists and [place] [employer] of endocrinology guidelines recommend patients who [...] software and direct typing Please excuse inadvertent sonogram technician or typing errors, or uncorrected word substitutions Although every attempt has been made by the provider to proofread this document, occasional misspellings and typographical errors may still be present Due to the previous pandemic, and the use of personal protective equipment (PPE) This may decrease voice recognition accuracy Inadvertent sonogram technician errors may occur 12/18/2023 NICHOLE (obstructive sleep apnea) (ICD-10 - G47.33) #Weight Management 12/18/2023 Labs reviewed from [facility] September 2023 thriving Given ongoing weight loss this may be a recurrent problem until her weight stabilizes 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 household chores and rechecking labs every 4 weeks or [...] minimum of 6 months The most recent [place] [employer] of clinical endocrinologists and [place] [employer] of endocrinology guidelines recommend patients who [...] software and direct typing Please excuse inadvertent sonogram technician or typing errors, or uncorrected word substitutions Although every attempt has been made by the provider to proofread this document, occasional misspellings and typographical errors may still be present Due to the previous pandemic, and the use of personal protective equipment (PPE) This may decrease voice recognition accuracy Inadvertent sonogram technician errors may occur PLAN OF TREATMENT Medication [...] Details Provider Name:MADDIE REYES, 03/17/2024 01:45:00 PM, [address] [place] [address], [facility] [address], [place], [address], Progress Notes * Lexi CORTEZOB: [birth year] (53 yo F)Acc No.[id number]:12/18/2023 Patient:??Corazon CORTEZ Provider:??MADDIE REYES NP :1970?Age:53 Y?Sex:Fe male Date:12/18/2023 Address:[address] [place], [place] [id number] Subjective: * Chief Complaints: * ?1. Pt [...] here ?#Weight Management ?12/18/2023 ?Labs reviewed from [facility] September 2023 ?Still on Mounjaro 15mg, injection day Sundays. Contrave BID. No s/e. ?Appetite supressed. Has been stressful last couple months with personal things. ?TSH levels stable at this time, dose of Levothyroxine recently increased and ?will have f/u lab work in December for Medicaid Analyst. She remains also on methimazole ?Having full [...] for ablation in the near future with retail warehouse supervisor JOSHUA, ? but is on hold until weight loss is stabilizes ?She also has a history of Graves' disease, obstructive sleep apnea, diabetes, ?Patient referred to us from [facility] ?She is under the care of an household chores for both her diabetes as well as Graves' disease ?12/18/2023, Weight 300, BMI 47 (+8lbs) ?10/16/2023, Weight 292lbs , BMI 45.8 ?08/07/2023, Weight 292lbs, BMI 47 ?06/25/2023, Weight 294lbs ,BMI (-22lbs) ?05/07/2023, Weight 316 lbs, BMI 49 ?03/10/2023, Weight 314, BMI 50.8 ?01/15/2023: Weight 315 lbs, BMI 50.8 ?12/06/2022: Weight 328 lbs, BMI 52.8 ?10/23/2022: Weight 348 lbs, BMI 56 ?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 Tyler in [place] ?Comprehensive labs from [facility] ?September 2023 ?Renal function electrolytes and [...] G47.33?? #Weight Management 12/18/2023 Labs reviewed from [facility] September 2023 thriving Given ongoing weight loss this may be a recurrent problem until her weight stabilizes 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 household chores and rechecking labs every 4 weeks or [...] minimum of 6 months The most recent [place] [employer] of clinical endocrinologists and [place] [employer] of endocrinology guidelines recommend patients who [...] software and direct typing Please excuse inadvertent sonogram technician or typing errors, or uncorrected word substitutions Although every attempt has been made by the provider to proofread this document, occasional misspellings and typographical errors may still be present Due to the previous pandemic, and the use of personal protective equipment (PPE) This may decrease voice recognition accuracy Inadvertent sonogram technician errors may occur. Plan: * Treatment: * Procedure Codes:??G0447 FCE- FCE BEHAVRL CNSL OBESITY 15 MIN, Modifiers: 59 * Images: Billing Information: * Visit Code:?? 65052 Office Visit, Est Pt., Level 4. * [...] here #Weight Management 12/18/2023 Labs reviewed from [facility] September 2023 Still on Mounjaro 15mg, injection day Sundays. Contrave BID. No s/e. Appetite supressed. Has been stressful last couple months with personal things. TSH levels stable at this time, dose of Levothyroxine recently increased and will have f/u lab work in December for Medicaid Analyst. She remains also on methimazole Having full [...] for ablation in the near future with retail warehouse supervisor JOSHUA, but is on hold until weight loss is stabilizes She also has a history of Graves' disease, obstructive sleep apnea, diabetes, Patient referred to us from [facility] She is under the care of an household chores for both her diabetes as well as Graves' disease 12/18/2023, Weight 300, BMI 47 (+8lbs) 10/16/2023, Weight 292lbs , BMI 45.8 08/07/2023, Weight 292lbs, BMI 47 06/25/2023, Weight 294lbs ,BMI (-22lbs) 05/07/2023, Weight 316 lbs, BMI 49 03/10/2023, Weight 314, BMI 50.8 01/15/2023: Weight 315 lbs, BMI 50.8 12/06/2022: Weight 328 lbs, BMI 52.8 10/23/2022: Weight 348 lbs, BMI 56 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 Tyler in [place] Comprehensive labs from [facility] September 2023 Renal function electrolytes and LFTs are stable Estimated average glucose of 110 A1c 5.5 TSH 0.94 Total cholesterol 151, LDL 82, triglycerides 118, HDL 46 Has not had an echocardiogram recently. Examination Category Sub-Category Detail Notes Category Not es General Examination GENERAL APPEARANCE: in no ac table mountain distress, well developed, well nourished HEAD: normocephalic, [...]
--- OUTSIDE RECORDS SUMMARY | 2024-02-26 12:09 | XMS_ITS ---
Author Organization [facility] Address [address] [place] [address] Care Team Providers Care Orthopedic Assistant Name Role Phone FINNMihai MADDIE Unavailable [phone] REASON FOR VISIT PA - contrave Encounters Encounter Location Date Provider Diagnosis [facility] [address] [facility] D[facility] [address] [place] [address] 11/07/2023 MADDIE REYES PLAN OF TREATMENT Next Appt Details Provider Name:MADDIE REYES, 03/17/2024 01:45:00 PM, [address] [facility], [address]EX [address], [place], [address], Progress Notes * Lexi CORTEZOB: [birth year] (53 yo F)Acc No.[id number]:11/07/2023 Patient:??Corazon CORTEZ :1970?Age:53 Y?Sex:Fe male Address:[place] [address] * true * Date:??
--- OUTSIDE RECORDS SUMMARY | 2024-02-26 12:09 | XMS_ITS | Patient Health Record ---
Author Organization [facility] Address [address] [place] [address] Care Team Providers Care Fire Fighters Dispatcher Name Role Phone MADDIE REYES Unavailable [phone] ALLERGIES Allergen (clinical drug ingredient) Drug/Non Drug [...] 15 MG/0.5ML 15mg Subcutaneous w [facility] for 30 days 03/10/2023 Active [...] Notes Problem Morbid obesity (E66.01) Active confirmed 131433763 Problem NICHOLE (obstructive sleep apnea) (G47.33) Active confirmed 26948244 Problem Chronic anticoagulation (Z79.01) Active confirmed 537382772 Problem Type 2 diabetes mellitus without complication, without long-term current use of insulin (E11.9) Active confirmed 516342456 Problem BMI 50.0-59.9, adult (Z68.43) Active confirmed 510963337 Problem Graves disease (E05.00) Active confirmed 707304541 Problem PAF (paroxysmal atrial fibrillation) (I48.0) Active confirmed 103674375 Problem BMI 45.0-49.9, adult (Z68.42) Active confirmed 278716986 VITAL SIGNS Heart Rate 74 /min 12/18/2023 Oximetry 97 % 12/18/2023 Blood pressure diastolic 80 mm Hg 12/18/2023 Height 66 in 12/18/2023 Blood pressure systolic 124 mm Hg 12/18/2023 Weight 300 lbs 12/18/2023 BMI 48.42 kg/m2 12/18/2023 Encounters Encounter Location Date Provider Diagnosis [place] [id number] [address] 03/10/2023 MADDIE REYES Morbid obesity E66.0 1 ; BMI 50.0-59.9, adult Z68.43 ; Graves disease E05.00 ; Type 2 diabetes mellitus without complication, without long-term current use of insulin E11.9 ; Chronic anticoagulation Z79.01 ; PAF (paroxysmal atrial fibrillation) I48.0 and NICHOLE (obstructive sleep apnea) G47.33 [place] [address] [address] 05/08/2023 MADDIE REYES Morbid obesity E66.0 1 ; BMI 50.0-59.9, adult Z68.43 ; Graves disease E05.00 ; Type 2 diabetes mellitus without complication, without long-term current use of insulin E11.9 ; Chronic anticoagulation Z79.01 ; PAF (paroxysmal atrial fibrillation) I48.0 and NICHOLE (obstructive sleep apnea) G47.33 [facility] [address] [address] 06/25/2023 MADDIE BORHOT Morbid obesity E66.0 1 ; Graves disease E05.00 ; Type 2 diabetes mellitus without complication, without long-term current use of insulin E11.9 ; Chronic anticoagulation Z79.01 ; PAF (paroxysmal atrial fibrillation) I48.0 ; NICHOLE (obstructive sleep apnea) G47.33 and BMI 45.0-49.9, adult Z68.42 [facility] [address] [address] 08/07/2023 MADDIE BORHOT Morbid obesity E66.0 1 ; BMI 45.0-49.9, adult Z68.42 ; Dietary counseling and surveillance Z71.3 ; Type 2 diabetes mellitus without complication, without long-term current use of insulin E11.9 ; Graves disease E05.00 ; Chronic anticoagulation Z79.01 ; PAF (paroxysmal atrial fibrillation) I48.0 and NICHOLE (obstructive sleep apnea) G47.33 [facility] [address] [address] 10/16/2023 MADDIE BORHOT Morbid obesity E66.0 1 ; BMI 45.0-49.9, adult Z68.42 ; Dietary counseling and surveillance Z71.3 ; Type 2 diabetes mellitus without complication, without long-term current use of insulin E11.9 ; Graves disease E05.00 ; Chronic anticoagulation Z79.01 ; PAF (paroxysmal atrial fibrillation) I48.0 and NICHOLE (obstructive sleep apnea) G47.33 [facility] [address] [address] 12/18/2023 MADDIE BORHOT Morbid obesity E66.0 1 ; BMI 45.0-49.9, adult Z68.42 ; Dietary counseling and surveillance Z71.3 ; Type 2 diabetes mellitus without complication, without long-term current use of insulin E11.9 ; Graves disease E05.00 ; Chronic anticoagulation Z79.01 ; PAF (paroxysmal atrial fibrillation) I48.0 and NICHOLE (obstructive sleep apnea) G47.33 [address] [address] 05/16/2023 MADDIE REYES [facility] [address] [place] [address] 07/30/2023 MADDIE REYES Morbid obesity E66.[address] [facility] [address] [address] [place] [address] 10/22/2023 MADDIE REYES Morbid obesity E66.[address] [facility] [address] [facility] [address] [address] 11/07/2023 MADDIE REYES [facility] [address] [facility] [address] [address] 11/12/2023 MADDIE REYES Morbid obesity E66.0 1 [...] regimen I will request and coordinate with director of rehabilitative services and primary care In office A1c 5.6 today 02/2023 Total time spent today was 30 minutes of which greater than 50% was spent on coordinating and counseling We are a board certified obesity and weight management practice Patient has trialed behavioral modification, dietary restrictions and exercise for a minimum of 6 months The most recent [place] [employer] of clinical endocrinologists and [employer] guidelines recommend patients who [...] track activity level. Consider using apps like Womai, Cylancepal, lose it, stick as needed for self-monitoring and weight management. Consider group exercises. Consider hiring a personal counselor. Regular exercise is carvalho to sustainable health [...] counseling and psychiatry and Dr Andres at [facility]. We would like to cover regular topics [...] software and direct typing Please excuse inadvertent fabrication department supervisor or typing errors, or uncorrected word substitutions Although every attempt has been made by the provider to proofread this document, occasional misspellings and typographical errors may still be present Due to the previous pandemic, and the use of personal protective equipment (PPE) This may decrease voice recognition accuracy Inadvertent fabrication department supervisor errors may occur 05/08/2023 Morbid obesity (ICD-10 [...] minimum of 6 months The most recent [place] [employer] of clinical endocrinologists and [employer] guidelines recommend patients who [...] track activity level. Consider using apps like Womai, Cylancepal, lose it, stick as needed for self-monitoring and weight management. Consider group exercises. Consider hiring a personal counselor. Regular exercise is carvalho to sustainable health [...] counseling and psychiatry and Dr Andres at [facility]. We would like to cover regular topics [...] software and direct typing Please excuse inadvertent fabrication department supervisor or typing errors, or uncorrected word substitutions Although every attempt has been made by the provider to proofread this document, occasional misspellings and typographical errors may still be present Due to the previous pandemic, and the use of personal protective equipment (PPE) This may decrease voice recognition accuracy Inadvertent fabrication department supervisor errors may occur 06/25/2023 Morbid obesity (ICD-10 [...] minimum of 6 months The most recent [place] [employer] of clinical endocrinologists and [employer] end[employer]in[employer] guidelines recommend patients who [...] track activity level. Consider using apps like Womai, myfitSpunkmobilepal, lose it, stick as needed for self-monitoring and weight management. Consider group exercises. Consider hiring a personal counselor. Regular exercise is carvalho to sustainable health [...] counseling and psychiatry and Dr Andres at [facility]. We would like to cover regular topics [...] software and direct typing Please excuse inadvertent fabrication department supervisor or typing errors, or uncorrected word substitutions Although every attempt has been made by the provider to proofread this document, occasional misspellings and typographical errors may still be present Due to the previous pandemic, and the use of personal protective equipment (PPE) This may decrease voice recognition accuracy Inadvertent fabrication department supervisor errors may occur 06/25/2023 Graves disease (ICD-10 [...] minimum of 6 months The most recent [place] [employer] of clinical endocrinologists and [employer] end[employer]in[employer] guidelines recommend patients who [...] track activity level. Consider using apps like Womai, myfitnesspal, lose it, stick as needed for self-monitoring and weight management. Consider group exercises. Consider hiring a personal counselor. Regular exercise is carvalho to sustainable health [...] counseling and psychiatry and Dr Andres at [facility]. We would like to cover regular topics [...] software and direct typing Please excuse inadvertent fabrication department supervisor or typing errors, or uncorrected word substitutions Although every attempt has been made by the provider to proofread this document, occasional misspellings and typographical errors may still be present Due to the previous pandemic, and the use of personal protective equipment (PPE) This may decrease voice recognition accuracy Inadvertent fabrication department supervisor errors may occur 07/30/2023 Morbid obesity (ICD-10 - E66.01) 08/07/2023 Morbid obesity (ICD-10 - E66.01) #Weight Management 08/07/2023 thriving Thyroid function is very inconsistent and sporadic at the moment which can alter and hinder weight loss 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 director of rehabilitative services and rechecking labs every 4 weeks or [...] minimum of 6 months The most recent [place] [employer] of clinical endocrinologists and [employer] end[employer] guidelines recommend patients who [...] track activity level. Consider using apps like Womai, Cylancepal, lose it, stick as needed for self-monitoring and weight management. Consider group exercises. Consider hiring a personal counselor. Regular exercise is carvalho to sustainable health [...] counseling and psychiatry and Dr Andres at [facility]. We would like to cover regular topics [...] software and direct typing Please excuse inadvertent fabrication department supervisor or typing errors, or uncorrected word substitutions Although every attempt has been made by the provider to proofread this document, occasional misspellings and typographical errors may still be present Due to the previous pandemic, and the use of personal protective equipment (PPE) This may decrease voice recognition accuracy Inadvertent fabrication department supervisor errors may occur 08/07/2023 BMI 45.0-49.9, adult (ICD-10 - Z68.42) #Weight Management 08/07/2023 thriving Thyroid function is very inconsistent and sporadic at the moment which can alter and hinder weight loss 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 director of rehabilitative services and rechecking labs every 4 weeks or [...] minimum of 6 months The most recent [place] [employer] of clinical endocrinologists and [employer] end[employer]inology guidelines recommend patients who [...] track activity level. Consider using apps like Womai, Cylancepal, lose it, stick as needed for self-monitoring and weight management. Consider group exercises. Consider hiring a personal counselor. Regular exercise is carvalho to sustainable health [...] counseling and psychiatry and Dr Andres at [facility]. We would like to cover regular topics [...] software and direct typing Please excuse inadvertent fabrication department supervisor or typing errors, or uncorrected word substitutions Although every attempt has been made by the provider to proofread this document, occasional misspellings and typographical errors may still be present Due to the previous pandemic, and the use of personal protective equipment (PPE) This may decrease voice recognition accuracy Inadvertent fabrication department supervisor errors may occur 10/16/2023 Morbid obesity (ICD-10 - E66.01) #Weight Management 10/16/2023 Labs reviewed from [facility] September 2023 thriving Given ongoing weight loss this may be a recurrent problem until her weight stabilizes 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 director of rehabilitative services and rechecking labs every 4 weeks or [...] minimum of 6 months The most recent [place] [employer] of clinical endocrinologists and [employer] end[employer]in[employer] guidelines recommend patients who [...] track activity level. Consider using apps like Womai, [employer], lose it, stick as needed for self-monitoring and weight management. Consider group exercises. Consider hiring a personal counselor. Regular exercise is carvalho to sustainable health [...] counseling and psychiatry and Dr Andres at [facility]. We would like to cover regular topics [...] software and direct typing Please excuse inadvertent fabrication department supervisor or typing errors, or uncorrected word substitutions Although every attempt has been made by the provider to proofread this document, occasional misspellings and typographical errors may still be present Due to the previous pandemic, and the use of personal protective equipment (PPE) This may decrease voice recognition accuracy Inadvertent fabrication department supervisor errors may occur 10/22/2023 Morbid obesity (ICD-10 - E66.01) 11/12/2023 Morbid obesity (ICD-10 - E66.01) 12/18/2023 Morbid obesity (ICD-10 - E66.01) #Weight Management 12/18/2023 Labs reviewed from [facility] September 2023 thriving Given ongoing weight loss this may be a recurrent problem until her weight stabilizes 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 director of rehabilitative services and rechecking labs every 4 weeks or [...] minimum of 6 months The most recent [place] [employer] of clinical endocrinologists and [employer] end[employer]inology guidelines recommend patients who [...] software and direct typing Please excuse inadvertent fabrication department supervisor or typing errors, or uncorrected word substitutions Although every attempt has been made by the provider to proofread this document, occasional misspellings and typographical errors may still be present Due to the previous pandemic, and the use of personal protective equipment (PPE) This may decrease voice recognition accuracy Inadvertent fabrication department supervisor errors may occur 10/16/2023 BMI 45.0-49.9, adult (ICD-10 - Z68.42) #Weight Management 10/16/2023 Labs reviewed from [facility] September 2023 thriving Given ongoing weight loss this may be a recurrent problem until her weight stabilizes 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 director of rehabilitative services and rechecking labs every 4 weeks or [...] minimum of 6 months The most recent [place] [employer] of clinical endocrinologists and [employer] end[employer]inology guidelines recommend patients who [...] track activity level. Consider using apps like Womai, myfitnesspal, lose it, stick as needed for self-monitoring and weight management. Consider group exercises. Consider hiring a personal counselor. Regular exercise is carvalho to sustainable health [...] counseling and psychiatry and Dr Andres at [facility]. We would like to cover regular topics [...] software and direct typing Please excuse inadvertent fabrication department supervisor or typing errors, or uncorrected word substitutions Although every attempt has been made by the provider to proofread this document, occasional misspellings and typographical errors may still be present Due to the previous pandemic, and the use of personal protective equipment (PPE) This may decrease voice recognition accuracy Inadvertent fabrication department supervisor errors may occur 12/18/2023 BMI 45.0-49.9, adult (ICD-10 - Z68.42) #Weight Management 12/18/2023 Labs reviewed from [facility] September 2023 thriving Given ongoing weight loss this may be a recurrent problem until her weight stabilizes 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 director of rehabilitative services and rechecking labs every 4 weeks or [...] minimum of 6 months The most recent [place] [employer] of clinical endocrinologists and [employer] end[employer]inology guidelines recommend patients who [...] software and direct typing Please excuse inadvertent fabrication department supervisor or typing errors, or uncorrected word substitutions Although every attempt has been made by the provider to proofread this document, occasional misspellings and typographical errors may still be present Due to the previous pandemic, and the use of personal protective equipment (PPE) This may decrease voice recognition accuracy Inadvertent fabrication department supervisor errors may occur 08/07/2023 Dietary counseling and surveillance (ICD-10 - Z71.3) #Weight Management 08/07/2023 thriving Thyroid function is very inconsistent and sporadic at the moment which can alter and hinder weight loss 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 director of rehabilitative services and rechecking labs every 4 weeks or [...] minimum of 6 months The most recent [place] [employer] of clinical endocrinologists and [employer] of endocrinology guidelines recommend patients who [...] track activity level. Consider using apps like Womai, myfitnesspal, lose it, stick as needed for self-monitoring and weight management. Consider group exercises. Consider hiring a personal counselor. Regular exercise is carvalho to sustainable health [...] counseling and psychiatry and Dr Andres at [facility]. We would like to cover regular topics [...] software and direct typing Please excuse inadvertent fabrication department supervisor or typing errors, or uncorrected word substitutions Although every attempt has been made by the provider to proofread this document, occasional misspellings and typographical errors may still be present Due to the previous pandemic, and the use of personal protective equipment (PPE) This may decrease voice recognition accuracy Inadvertent fabrication department supervisor errors may occur 06/25/2023 Type 2 diabetes [...] minimum of 6 months The most recent [place] [employer] of clinical endocrinologists and [employer] endocrinology guidelines recommend patients who [...] track activity level. Consider using apps like Womai, myfitnesspal, lose it, stick as needed for self-monitoring and weight management. Consider group exercises. Consider hiring a personal counselor. Regular exercise is carvalho to sustainable health [...] counseling and psychiatry and Dr Andres at [facility]. We would like to cover regular topics [...] software and direct typing Please excuse inadvertent fabrication department supervisor or typing errors, or uncorrected word substitutions Although every attempt has been made by the provider to proofread this document, occasional misspellings and typographical errors may still be present Due to the previous pandemic, and the use of personal protective equipment (PPE) This may decrease voice recognition accuracy Inadvertent fabrication department supervisor errors may occur 05/08/2023 BMI 50.0-59.9, adult [...] minimum of 6 months The most recent [place] [employer] of clinical endocrinologists and [employer] [employer] of endocrinology guidelines recommend patients who [...] track activity level. Consider using apps like [employer], Cylancepal, lose it, stick as needed for self-monitoring and weight management. Consider group exercises. Consider hiring a personal counselor. Regular exercise is carvalho to sustainable health [...] counseling and psychiatry and Dr Andres at [facility]. We would like to cover regular topics [...] software and direct typing Please excuse inadvertent fabrication department supervisor or typing errors, or uncorrected word substitutions Although every attempt has been made by the provider to proofread this document, occasional misspellings and typographical errors may still be present Due to the previous pandemic, and the use of personal protective equipment (PPE) This may decrease voice recognition accuracy Inadvertent fabrication department supervisor errors may occur 03/10/2023 BMI 50.0-59.9, adult (ICD-10 - Z68.43) As per HPI dc the sulfonylurea we have cut back her metformin by 50% to 750 mg extended release increase Mounjaro from 12.5 to 15 mg She is Thriving already doing very well on this regimen I will request and coordinate with director of rehabilitative services and primary care In office A1c 5.6 today 02/2023 Total time spent today was 30 minutes of which greater than 50% was spent on coordinating and counseling We are a board certified obesity and weight management practice Patient has trialed behavioral modification, dietary restrictions and exercise for a minimum of 6 months The most recent [place] [employer] of clinical endocrinologists and [employer] endocrinology guidelines recommend patients who [...] track activity level. Consider using apps like Womai, Cylancepal, lose it, stick as needed for self-monitoring and weight management. Consider group exercises. Consider hiring a personal counselor. Regular exercise is carvalho to sustainable health [...] counseling and psychiatry and Dr Andres at [facility]. We would like to cover regular topics [...] software and direct typing Please excuse inadvertent fabrication department supervisor or typing errors, or uncorrected word substitutions Although every attempt has been made by the provider to proofread this document, occasional misspellings and typographical errors may still be present Due to the previous pandemic, and the use of personal protective equipment (PPE) This may decrease voice recognition accuracy Inadvertent fabrication department supervisor errors may occur 03/10/2023 Graves disease (ICD-10 - E05.00) As per HPI dc the sulfonylurea we have cut back her metformin by 50% to 750 mg extended release increase Mounjaro from 12.5 to 15 mg She is Thriving already doing very well on this regimen I will request and coordinate with director of rehabilitative services and primary care In office A1c 5.6 today 02/2023 Total time spent today was 30 minutes of which greater than 50% was spent on coordinating and counseling We are a board certified obesity and weight management practice Patient has trialed behavioral modification, dietary restrictions and exercise for a minimum of 6 months The most recent [place] [employer] of clinical endocrinologists and [employer] [employer] end[employer]inology guidelines recommend patients who [...] track activity level. Consider using apps like Womai, Cylancepal, lose it, stick as needed for self-monitoring and weight management. Consider group exercises. Consider hiring a personal counselor. Regular exercise is carvalho to sustainable health [...] counseling and psychiatry and Dr Andres at [facility]. We would like to cover regular topics [...] software and direct typing Please excuse inadvertent fabrication department supervisor or typing errors, or uncorrected word substitutions Although every attempt has been made by the provider to proofread this document, occasional misspellings and typographical errors may still be present Due to the previous pandemic, and the use of personal protective equipment (PPE) This may decrease voice recognition accuracy Inadvertent fabrication department supervisor errors may occur 05/08/2023 Graves disease (ICD-10 [...] minimum of 6 months The most recent [place] [employer] of clinical endocrinologists and [employer] end[employer]inology guidelines recommend patients who [...] track activity level. Consider using apps like Womai, Cylancepal, lose it, stick as needed for self-monitoring and weight management. Consider group exercises. Consider hiring a personal counselor. Regular exercise is carvalho to sustainable health [...] counseling and psychiatry and Dr Andres at [facility]. We would like to cover regular topics [...] software and direct typing Please excuse inadvertent fabrication department supervisor or typing errors, or uncorrected word substitutions Although every attempt has been made by the provider to proofread this document, occasional misspellings and typographical errors may still be present Due to the previous pandemic, and the use of personal protective equipment (PPE) This may decrease voice recognition accuracy Inadvertent fabrication department supervisor errors may occur 06/25/2023 Chronic anticoagulation (ICD-10 [...] minimum of 6 months The most recent [place] [employer] of clinical endocrinologists and [employer] end[employer] guidelines recommend patients who [...] track activity level. Consider using apps like Womai, Cylancepal, lose it, stick as needed for self-monitoring and weight management. Consider group exercises. Consider hiring a personal counselor. Regular exercise is carvalho to sustainable health [...] counseling and psychiatry and Dr Andres at [facility]. We would like to cover regular topics [...] software and direct typing Please excuse inadvertent fabrication department supervisor or typing errors, or uncorrected word substitutions Although every attempt has been made by the provider to proofread this document, occasional misspellings and typographical errors may still be present Due to the previous pandemic, and the use of personal protective equipment (PPE) This may decrease voice recognition accuracy Inadvertent fabrication department supervisor errors may occur 10/16/2023 Dietary counseling and surveillance (ICD-10 - Z71.3) #Weight Management 10/16/2023 Labs reviewed from [facility] September 2023 thriving Given ongoing weight loss this may be a recurrent problem until her weight stabilizes 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 director of rehabilitative services and rechecking labs every 4 weeks or [...] minimum of 6 months The most recent [place] [employer] endocrinologists and [employer] guidelines recommend patients who [...] track activity level. Consider using apps like Womai, Cylancepal, lose it, stick as needed for self-monitoring and weight management. Consider group exercises. Consider hiring a personal counselor. Regular exercise is carvalho to sustainable health [...] counseling and psychiatry and Dr Andres at [facility]. We would like to cover regular topics [...] software and direct typing Please excuse inadvertent fabrication department supervisor or typing errors, or uncorrected word substitutions Although every attempt has been made by the provider to proofread this document, occasional misspellings and typographical errors may still be present Due to the previous pandemic, and the use of personal protective equipment (PPE) This may decrease voice recognition accuracy Inadvertent fabrication department supervisor errors may occur 08/07/2023 Type 2 diabetes mellitus without complication, without long-term current use of insulin (ICD-10 - E11.9) #Weight Management 08/07/2023 thriving Thyroid function is very inconsistent and sporadic at the moment which can alter and hinder weight loss 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 director of rehabilitative services and rechecking labs every 4 weeks or [...] minimum of 6 months The most recent [place] [employer] endocrinologists and [employer] guidelines recommend patients who [...] track activity level. Consider using apps like Womai, Cylancepal, lose it, stick as needed for self-monitoring and weight management. Consider group exercises. Consider hiring a personal counselor. Regular exercise is carvalho to sustainable health [...] counseling and psychiatry and Dr Andres at [facility]. We would like to cover regular topics [...] software and direct typing Please excuse inadvertent fabrication department supervisor or typing errors, or uncorrected word substitutions Although every attempt has been made by the provider to proofread this document, occasional misspellings and typographical errors may still be present Due to the previous pandemic, and the use of personal protective equipment (PPE) This may decrease voice recognition accuracy Inadvertent fabrication department supervisor errors may occur 12/18/2023 Dietary counseling and surveillance (ICD-10 - Z71.3) #Weight Management 12/18/2023 Labs reviewed from [facility] September 2023 thriving Given ongoing weight loss this may be a recurrent problem until her weight stabilizes 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 director of rehabilitative services and rechecking labs every 4 weeks or [...] minimum of 6 months The most recent [place]ocrinologists and [employer] guidelines recommend patients who [...] software and direct typing Please excuse inadvertent fabrication department supervisor or typing errors, or uncorrected word substitutions Although every attempt has been made by the provider to proofread this document, occasional misspellings and typographical errors may still be present Due to the previous pandemic, and the use of personal protective equipment (PPE) This may decrease voice recognition accuracy Inadvertent fabrication department supervisor errors may occur 10/16/2023 Type 2 diabetes mellitus without complication, without long-term current use of insulin (ICD-10 - E11.9) #Weight Management 10/16/2023 Labs reviewed from [facility] September 2023 thriving Given ongoing weight loss this may be a recurrent problem until her weight stabilizes 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 director of rehabilitative services and rechecking labs every 4 weeks or [...] minimum of 6 months The most recent [place] [employer] endocrinologists and [employer] guidelines recommend patients who [...] track activity level. Consider using apps like Womai, Cylancepal, lose it, stick as needed for self-monitoring and weight management. Consider group exercises. Consider hiring a personal counselor. Regular exercise is carvalho to sustainable health [...] counseling and psychiatry and Dr Andres at [facility]. We would like to cover regular topics [...] software and direct typing Please excuse inadvertent fabrication department supervisor or typing errors, or uncorrected word substitutions Although every attempt has been made by the provider to proofread this document, occasional misspellings and typographical errors may still be present Due to the previous pandemic, and the use of personal protective equipment (PPE) This may decrease voice recognition accuracy Inadvertent fabrication department supervisor errors may occur 12/18/2023 Type 2 diabetes mellitus without complication, without long-term current use of insulin (ICD-10 - E11.9) #Weight Management 12/18/2023 Labs reviewed from [facility] September 2023 thriving Given ongoing weight loss this may be a recurrent problem until her weight stabilizes 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 director of rehabilitative services and rechecking labs every 4 weeks or [...] minimum of 6 months The most recent [place] endocrinologists and [employer] guidelines recommend patients who [...] software and direct typing Please excuse inadvertent fabrication department supervisor or typing errors, or uncorrected word substitutions Although every attempt has been made by the provider to proofread this document, occasional misspellings and typographical errors may still be present Due to the previous pandemic, and the use of personal protective equipment (PPE) This may decrease voice recognition accuracy Inadvertent fabrication department supervisor errors may occur 08/07/2023 Graves disease (ICD-10 - E05.00) #Weight Management 08/07/2023 thriving Thyroid function is very inconsistent and sporadic at the moment which can alter and hinder weight loss 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 director of rehabilitative services and rechecking labs every 4 weeks or [...] minimum of 6 months The most recent [place] [employer] clinical endocrinologists and [employer] guidelines recommend patients who [...] track activity level. Consider using apps like Womai, Cylancepal, lose it, stick as needed for self-monitoring and weight management. Consider group exercises. Consider hiring a personal counselor. Regular exercise is carvalho to sustainable health [...] counseling and psychiatry and Dr Andres at [facility]. We would like to cover regular topics [...] software and direct typing Please excuse inadvertent fabrication department supervisor or typing errors, or uncorrected word substitutions Although every attempt has been made by the provider to proofread this document, occasional misspellings and typographical errors may still be present Due to the previous pandemic, and the use of personal protective equipment (PPE) This may decrease voice recognition accuracy Inadvertent fabrication department supervisor errors may occur 06/25/2023 PAF (paroxysmal atrial [...] minimum of 6 months The most recent [place] [employer] endocrinologists and [employer] guidelines recommend patients who [...] track activity level. Consider using apps like Womai, Cylancepal, lose it, stick as needed for self-monitoring and weight management. Consider group exercises. Consider hiring a personal counselor. Regular exercise is carvalho to sustainable health [...] counseling and psychiatry and Dr Andres at [facility]. We would like to cover regular topics [...] software and direct typing Please excuse inadvertent fabrication department supervisor or typing errors, or uncorrected word substitutions Although every attempt has been made by the provider to proofread this document, occasional misspellings and typographical errors may still be present Due to the previous pandemic, and the use of personal protective equipment (PPE) This may decrease voice recognition accuracy Inadvertent fabrication department supervisor errors may occur 05/08/2023 Type 2 diabetes [...] minimum of 6 months The most recent [place] [employer] clinical endocrinologists and [employer] guidelines recommend patients who [...] track activity level. Consider using apps like Womai, myfitnesspal, lose it, stick as needed for self-monitoring and weight management. Consider group exercises. Consider hiring a personal counselor. Regular exercise is carvalho to sustainable health [...] counseling and psychiatry and Dr Andres at [facility]. We would like to cover regular topics [...] software and direct typing Please excuse inadvertent fabrication department supervisor or typing errors, or uncorrected word substitutions Although every attempt has been made by the provider to proofread this document, occasional misspellings and typographical errors may still be present Due to the previous pandemic, and the use of personal protective equipment (PPE) This may decrease voice recognition accuracy Inadvertent fabrication department supervisor errors may occur 03/10/2023 Type 2 diabetes mellitus without complication, without long-term current use of insulin (ICD-10 - E11.9) As per HPI dc the sulfonylurea we have cut back her metformin by 50% to 750 mg extended release increase Mounjaro from 12.5 to 15 mg She is Thriving already doing very well on this regimen I will request and coordinate with director of rehabilitative services and primary care In office A1c 5.6 today 02/2023 Total time spent today was 30 minutes of which greater than 50% was spent on coordinating and counseling We are a board certified obesity and weight management practice Patient has trialed behavioral modification, dietary restrictions and exercise for a minimum of 6 months The most recent [place] [employer] clinical endocrinologists and [employer] guidelines recommend patients who [...] track activity level. Consider using apps like Womai, myfitnesspal, lose it, stick as needed for self-monitoring and weight management. Consider group exercises. Consider hiring a personal counselor. Regular exercise is carvalho to sustainable health [...] counseling and psychiatry and Dr Andres at [facility]. We would like to cover regular topics [...] software and direct typing Please excuse inadvertent fabrication department supervisor or typing errors, or uncorrected word substitutions Although every attempt has been made by the provider to proofread this document, occasional misspellings and typographical errors may still be present Due to the previous pandemic, and the use of personal protective equipment (PPE) This may decrease voice recognition accuracy Inadvertent fabrication department supervisor errors may occur 03/10/2023 Chronic anticoagulation (ICD-10 - Z79.01) As per HPI dc the sulfonylurea we have cut back her metformin by 50% to 750 mg extended release increase Mounjaro from 12.5 to 15 mg She is Thriving already doing very well on this regimen I will request and coordinate with director of rehabilitative services and primary care In office A1c 5.6 today 02/2023 Total time spent today was 30 minutes of which greater than 50% was spent on coordinating and counseling We are a board certified obesity and weight management practice Patient has trialed behavioral modification, dietary restrictions and exercise for a minimum of 6 months The most recent [place] [employer] clinical endocrinologists and [employer] guidelines recommend patients who [...] track activity level. Consider using apps like Womai, Cylancepal, lose it, stick as needed for self-monitoring and weight management. Consider group exercises. Consider hiring a personal counselor. Regular exercise is carvalho to sustainable health [...] counseling and psychiatry and Dr Andres at [facility]. We would like to cover regular topics [...] software and direct typing Please excuse inadvertent fabrication department supervisor or typing errors, or uncorrected word substitutions Although every attempt has been made by the provider to proofread this document, occasional misspellings and typographical errors may still be present Due to the previous pandemic, and the use of personal protective equipment (PPE) This may decrease voice recognition accuracy Inadvertent fabrication department supervisor errors may occur 05/08/2023 Chronic anticoagulation (ICD-10 [...] minimum of 6 months The most recent [place] [employer] clinical endocrinologists and [employer] guidelines recommend patients who [...] track activity level. Consider using apps like Womai, Cylancepal, lose it, stick as needed for self-monitoring and weight management. Consider group exercises. Consider hiring a personal counselor. Regular exercise is carvalho to sustainable health [...] counseling and psychiatry and Dr Andres at [facility]. We would like to cover regular topics [...] software and direct typing Please excuse inadvertent fabrication department supervisor or typing errors, or uncorrected word substitutions Although every attempt has been made by the provider to proofread this document, occasional misspellings and typographical errors may still be present Due to the previous pandemic, and the use of personal protective equipment (PPE) This may decrease voice recognition accuracy Inadvertent fabrication department supervisor errors may occur 06/25/2023 NICHOLE (obstructive sleep [...] minimum of 6 months The most recent [place] [employer] of clinical endocrinologists and [employer] guidelines recommend patients who [...] track activity level. Consider using apps like Womai, Cylancepal, lose it, stick as needed for self-monitoring and weight management. Consider group exercises. Consider hiring a personal counselor. Regular exercise is carvalho to sustainable health [...] counseling and psychiatry and Dr Andres at [facility]. We would like to cover regular topics [...] software and direct typing Please excuse inadvertent fabrication department supervisor or typing errors, or uncorrected word substitutions Although every attempt has been made by the provider to proofread this document, occasional misspellings and typographical errors may still be present Due to the previous pandemic, and the use of personal protective equipment (PPE) This may decrease voice recognition accuracy Inadvertent fabrication department supervisor errors may occur 08/07/2023 Chronic anticoagulation (ICD-10 - Z79.01) #Weight Management 08/07/2023 thriving Thyroid function is very inconsistent and sporadic at the moment which can alter and hinder weight loss 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 director of rehabilitative services and rechecking labs every 4 weeks or [...] minimum of 6 months The most recent [place] [employer] clinical endocrinologists and [employer] guidelines recommend patients who [...] track activity level. Consider using apps like Womai, Cylancepal, lose it, stick as needed for self-monitoring and weight management. Consider group exercises. Consider hiring a personal counselor. Regular exercise is carvalho to sustainable health [...] counseling and psychiatry and Dr Andres at [facility]. We would like to cover regular topics [...] software and direct typing Please excuse inadvertent fabrication department supervisor or typing errors, or uncorrected word substitutions Although every attempt has been made by the provider to proofread this document, occasional misspellings and typographical errors may still be present Due to the previous pandemic, and the use of personal protective equipment (PPE) This may decrease voice recognition accuracy Inadvertent fabrication department supervisor errors may occur 12/18/2023 Graves disease (ICD-10 - E05.00) #Weight Management 12/18/2023 Labs reviewed from [facility] September 2023 thriving Given ongoing weight loss this may be a recurrent problem until her weight stabilizes 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 director of rehabilitative services and rechecking labs every 4 weeks or [...] minimum of 6 months The most recent [place] [employer] clinical endocrinologists and [employer] guidelines recommend patients who [...] software and direct typing Please excuse inadvertent fabrication department supervisor or typing errors, or uncorrected word substitutions Although every attempt has been made by the provider to proofread this document, occasional misspellings and typographical errors may still be present Due to the previous pandemic, and the use of personal protective equipment (PPE) This may decrease voice recognition accuracy Inadvertent fabrication department supervisor errors may occur 10/16/2023 Graves disease (ICD-10 - E05.00) #Weight Management 10/16/2023 Labs reviewed from [facility] September 2023 thriving Given ongoing weight loss this may be a recurrent problem until her weight stabilizes 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 director of rehabilitative services and rechecking labs every 4 weeks or [...] minimum of 6 months The most recent [place] [employer] clinical endocrinologists and [employer] guidelines recommend patients who [...] track activity level. Consider using apps like Womai, myfitnesspal, lose it, stick as needed for self-monitoring and weight management. Consider group exercises. Consider hiring a personal counselor. Regular exercise is carvalho to sustainable health [...] counseling and psychiatry and Dr Andres at [facility]. We would like to cover regular topics [...] software and direct typing Please excuse inadvertent fabrication department supervisor or typing errors, or uncorrected word substitutions Although every attempt has been made by the provider to proofread this document, occasional misspellings and typographical errors may still be present Due to the previous pandemic, and the use of personal protective equipment (PPE) This may decrease voice recognition accuracy Inadvertent fabrication department supervisor errors may occur 12/18/2023 Chronic anticoagulation (ICD-10 - Z79.01) #Weight Management 12/18/2023 Labs reviewed from [facility] September 2023 thriving Given ongoing weight loss this may be a recurrent problem until her weight stabilizes 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 director of rehabilitative services and rechecking labs every 4 weeks or [...] minimum of 6 months The most recent [place] [employer] clinical endocrinologists and [employer] guidelines recommend patients who [...] software and direct typing Please excuse inadvertent fabrication department supervisor or typing errors, or uncorrected word substitutions Although every attempt has been made by the provider to proofread this document, occasional misspellings and typographical errors may still be present Due to the previous pandemic, and the use of personal protective equipment (PPE) This may decrease voice recognition accuracy Inadvertent fabrication department supervisor errors may occur 10/16/2023 Chronic anticoagulation (ICD-10 - Z79.01) #Weight Management 10/16/2023 Labs reviewed from [facility] September 2023 thriving Given ongoing weight loss this may be a recurrent problem until her weight stabilizes 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 director of rehabilitative services and rechecking labs every 4 weeks or [...] minimum of 6 months The most recent [place] [employer] clinical endocrinologists and [employer] guidelines recommend patients who [...] track activity level. Consider using apps like Womai, myfitnesspal, lose it, stick as needed for self-monitoring and weight management. Consider group exercises. Consider hiring a personal counselor. Regular exercise is carvalho to sustainable health [...] counseling and psychiatry and Dr Andres at [facility]. We would like to cover regular topics [...] software and direct typing Please excuse inadvertent fabrication department supervisor or typing errors, or uncorrected word substitutions Although every attempt has been made by the provider to proofread this document, occasional misspellings and typographical errors may still be present Due to the previous pandemic, and the use of personal protective equipment (PPE) This may decrease voice recognition accuracy Inadvertent fabrication department supervisor errors may occur 08/07/2023 PAF (paroxysmal atrial fibrillation) (ICD-10 - I48.0) #Weight Management 08/07/2023 thriving Thyroid function is very inconsistent and sporadic at the moment which can alter and hinder weight loss 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 director of rehabilitative services and rechecking labs every 4 weeks or [...] minimum of 6 months The most recent [place] [employer] clinical endocrinologists and [employer] guidelines recommend patients who [...] track activity level. Consider using apps like Womai, myfitSpunkmobilepal, lose it, stick as needed for self-monitoring and weight management. Consider group exercises. Consider hiring a personal counselor. Regular exercise is carvalho to sustainable health [...] counseling and psychiatry and Dr Andres at [facility]. We would like to cover regular topics [...] software and direct typing Please excuse inadvertent fabrication department supervisor or typing errors, or uncorrected word substitutions Although every attempt has been made by the provider to proofread this document, occasional misspellings and typographical errors may still be present Due to the previous pandemic, and the use of personal protective equipment (PPE) This may decrease voice recognition accuracy Inadvertent fabrication department supervisor errors may occur 06/25/2023 BMI 45.0-49.9, adult [...] minimum of 6 months The most recent [place] [employer] endocrinologists and [employer] guidelines recommend patients who [...] track activity level. Consider using apps like Youxinpai mionTwitJump excercise, myfitnesspal, lose it, stick as needed for self-monitoring and weight management. Consider group exercises. Consider hiring a personal counselor. Regular exercise is carvalho to sustainable health [...] counseling and psychiatry and Dr Andres at [facility]. We would like to cover regular topics [...] software and direct typing Please excuse inadvertent fabrication department supervisor or typing errors, or uncorrected word substitutions Although every attempt has been made by the provider to proofread this document, occasional misspellings and typographical errors may still be present Due to the previous pandemic, and the use of personal protective equipment (PPE) This may decrease voice recognition accuracy Inadvertent fabrication department supervisor errors may occur 05/08/2023 PAF (paroxysmal atrial [...] minimum of 6 months The most recent [employer]ocrinologists and [employer] guidelines recommend patients who [...] track activity level. Consider using apps like Womai, Cylancepal, lose it, stick as needed for self-monitoring and weight management. Consider group exercises. Consider hiring a personal counselor. Regular exercise is carvalho to sustainable health [...] counseling and psychiatry and Dr Andres at [facility]. We would like to cover regular topics [...] software and direct typing Please excuse inadvertent fabrication department supervisor or typing errors, or uncorrected word substitutions Although every attempt has been made by the provider to proofread this document, occasional misspellings and typographical errors may still be present Due to the previous pandemic, and the use of personal protective equipment (PPE) This may decrease voice recognition accuracy Inadvertent fabrication department supervisor errors may occur 03/10/2023 PAF (paroxysmal atrial fibrillation) (ICD-10 - I48.0) As per HPI dc the sulfonylurea we have cut back her metformin by 50% to 750 mg extended release increase Mounjaro from 12.5 to 15 mg She is Thriving already doing very well on this regimen I will request and coordinate with director of rehabilitative services and primary care In office A1c 5.6 today 02/2023 Total time spent today was 30 minutes of which greater than 50% was spent on coordinating and counseling We are a board certified obesity and weight management practice Patient has trialed behavioral modification, dietary restrictions and exercise for a minimum of 6 months The most recent [place] [employer] endocrinologists and [employer] guidelines recommend patients who [...] track activity level. Consider using apps like Womai, Cylancepal, lose it, stick as needed for self-monitoring and weight management. Consider group exercises. Consider hiring a personal counselor. Regular exercise is carvalho to sustainable health [...] counseling and psychiatry and Dr Andres at [facility]. We would like to cover regular topics [...] software and direct typing Please excuse inadvertent fabrication department supervisor or typing errors, or uncorrected word substitutions Although every attempt has been made by the provider to proofread this document, occasional misspellings and typographical errors may still be present Due to the previous pandemic, and the use of personal protective equipment (PPE) This may decrease voice recognition accuracy Inadvertent fabrication department supervisor errors may occur 03/10/2023 NICHOLE (obstructive sleep apnea) (ICD-10 - G47.33) As per HPI dc the sulfonylurea we have cut back her metformin by 50% to 750 mg extended release increase Mounjaro from 12.5 to 15 mg She is Thriving already doing very well on this regimen I will request and coordinate with director of rehabilitative services and primary care In office A1c 5.6 today 02/2023 Total time spent today was 30 minutes of which greater than 50% was spent on coordinating and counseling We are a board certified obesity and weight management practice Patient has trialed behavioral modification, dietary restrictions and exercise for a minimum of 6 months The most recent [place] clinical endocrinologists and [employer] guidelines recommend patients who [...] track activity level. Consider using apps like Womai, Cylancepal, lose it, stick as needed for self-monitoring and weight management. Consider group exercises. Consider hiring a personal counselor. Regular exercise is carvalho to sustainable health [...] counseling and psychiatry and Dr Andres at [facility]. We would like to cover regular topics [...] software and direct typing Please excuse inadvertent fabrication department supervisor or typing errors, or uncorrected word substitutions Although every attempt has been made by the provider to proofread this document, occasional misspellings and typographical errors may still be present Due to the previous pandemic, and the use of personal protective equipment (PPE) This may decrease voice recognition accuracy Inadvertent fabrication department supervisor errors may occur 05/08/2023 NICHOLE (obstructive sleep [...] minimum of 6 months The most recent [place] of clinical endocrinologists and [employer] guidelines recommend patients who [...] track activity level. Consider using apps like Womai, EgoscuefitSpunkmobilepal, lose it, stick as needed for self-monitoring and weight management. Consider group exercises. Consider hiring a personal counselor. Regular exercise is carvalho to sustainable health [...] counseling and psychiatry and Dr Andres at [facility]. We would like to cover regular topics [...] software and direct typing Please excuse inadvertent fabrication department supervisor or typing errors, or uncorrected word substitutions Although every attempt has been made by the provider to proofread this document, occasional misspellings and typographical errors may still be present Due to the previous pandemic, and the use of personal protective equipment (PPE) This may decrease voice recognition accuracy Inadvertent fabrication department supervisor errors may occur 08/07/2023 NICHOLE (obstructive sleep apnea) (ICD-10 - G47.33) #Weight Management 08/07/2023 [facility] Thyroid function is very inconsistent and sporadic at the moment which can alter and hinder weight loss 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 director of rehabilitative services and rechecking labs every 4 weeks or [...] minimum of 6 months The most recent [place] of clinical endocrinologists and [employer] guidelines recommend patients who [...] track activity level. Consider using apps like Womai, Cylancepal, lose it, stick as needed for self-monitoring and weight management. Consider group exercises. Consider hiring a personal counselor. Regular exercise is carvalho to sustainable health [...] counseling and psychiatry and Dr Andres at [facility]. We would like to cover regular topics [...] software and direct typing Please excuse inadvertent fabrication department supervisor or typing errors, or uncorrected word substitutions Although every attempt has been made by the provider to proofread this document, occasional misspellings and typographical errors may still be present Due to the previous pandemic, and the use of personal protective equipment (PPE) This may decrease voice recognition accuracy Inadvertent fabrication department supervisor errors may occur 10/16/2023 PAF (paroxysmal atrial fibrillation) (ICD-10 - I48.0) #Weight Management 10/16/2023 Labs reviewed from [facility] September 2023 thriving Given ongoing weight loss this may be a recurrent problem until her weight stabilizes 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 director of rehabilitative services and rechecking labs every 4 weeks or [...] minimum of 6 months The most recent [place] [employer] clinical endocrinologists and [employer] guidelines recommend patients who [...] track activity level. Consider using apps like Womai, Cylancepal, lose it, stick as needed for self-monitoring and weight management. Consider group exercises. Consider hiring a personal counselor. Regular exercise is carvalho to sustainable health [...] counseling and psychiatry and Dr Andres at [facility]. We would like to cover regular topics [...] software and direct typing Please excuse inadvertent fabrication department supervisor or typing errors, or uncorrected word substitutions Although every attempt has been made by the provider to proofread this document, occasional misspellings and typographical errors may still be present Due to the previous pandemic, and the use of personal protective equipment (PPE) This may decrease voice recognition accuracy Inadvertent fabrication department supervisor errors may occur 12/18/2023 PAF (paroxysmal atrial fibrillation) (ICD-10 - I48.0) #Weight Management 12/18/2023 Labs reviewed from [facility] September 2023 thriving Given ongoing weight loss this may be a recurrent problem until her weight stabilizes 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 director of rehabilitative services and rechecking labs every 4 weeks or [...] minimum of 6 months The most recent [place] [employer] of clinical endocrinologists and [employer] guidelines recommend patients who [...] software and direct typing Please excuse inadvertent fabrication department supervisor or typing errors, or uncorrected word substitutions Although every attempt has been made by the provider to proofread this document, occasional misspellings and typographical errors may still be present Due to the previous pandemic, and the use of personal protective equipment (PPE) This may decrease voice recognition accuracy Inadvertent fabrication department supervisor errors may occur 12/18/2023 NICHOLE (obstructive sleep apnea) (ICD-10 - G47.33) #Weight Management 12/18/2023 Labs reviewed from [facility] September 2023 thriving Given ongoing weight loss this may be a recurrent problem until her weight stabilizes 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 director of rehabilitative services and rechecking labs every 4 weeks or [...] minimum of 6 months The most recent [place] [employer] of clinical endocrinologists and [employer] guidelines recommend patients who [...] software and direct typing Please excuse inadvertent fabrication department supervisor or typing errors, or uncorrected word substitutions Although every attempt has been made by the provider to proofread this document, occasional misspellings and typographical errors may still be present Due to the previous pandemic, and the use of personal protective equipment (PPE) This may decrease voice recognition accuracy Inadvertent fabrication department supervisor errors may occur 10/16/2023 NICHOLE (obstructive sleep apnea) (ICD-10 - G47.33) #Weight Management 10/16/2023 Labs reviewed from [facility] September 2023 thriving Given ongoing weight loss this may be a recurrent problem until her weight stabilizes 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 director of rehabilitative services and rechecking labs every 4 weeks or [...] minimum of 6 months The most recent [place] [employer] of clinical endocrinologists and [employer]in[employer] guidelines recommend patients who [...] track activity level. Consider using apps like Womai, myfitnesspal, lose it, stick as needed for self-monitoring and weight management. Consider group exercises. Consider hiring a personal counselor. Regular exercise is carvalho to sustainable health [...] counseling and psychiatry and Dr Andres at [facility]. We would like to cover regular topics [...] software and direct typing Please excuse inadvertent fabrication department supervisor or typing errors, or uncorrected word substitutions Although every attempt has been made by the provider to proofread this document, occasional misspellings and typographical errors may still be present Due to the previous pandemic, and the use of personal protective equipment (PPE) This may decrease voice recognition accuracy Inadvertent fabrication department supervisor errors may occur PLAN OF TREATMENT Next Appt Details Provider Name:MADDIE REYES, 03/17/2024 01:45:00 PM, [address] [facility], [facility] [address], [place], [phone], Insurance Providers Payer Name Payer Address Payer Phone Subscriber Number Group Number Insured Name Patient Relationship to Insured Coverage Start Date Coverage End Date [facility] [address] [place] [address] [phone] [id number] Corazon Cortez Self - patient is the insured MEDICAL (GENERAL) HISTORY Medical History History ICD Code diabetes mellitus graves disease afib gastroesophageal reflux disease (GERD) hyperlipidemia asthma sleep apnea
--- OUTSIDE RECORDS SUMMARY | 2024-02-26 12:09 | XMS_ITS ---
Author Organization [facility] Address [address] [facility] [place] [address] Care Team Providers Care Die Storage Worker Name Role Phone Guanakito Tyler MD Primary Care Provider Lily Corral Unavailable [phone] Allergies Allergen (clinical drug ingredient) Drug/Non Drug Allergy documented on EMR Reaction Allergy Type Onset Date Status ibuprofen Advil on blood thinners Drug Allergy Active Aleve on blood thinners Drug Allergy Active [...] 01/27/2024 Blood pressure systolic 110 mm Hg 12/03/20 24 Blood pressure diastolic 64 mm Hg 024 Encounters Encounter Location Date Provider Diagnosis [facility] [place] [address] 01/27/2024 Lily Paris Type 2 diabetes mellitus with polyneuropathy E11.42 Assessments Encounter Date Diagnosis (ICD Code) Assessment Notes Treatment Notes Treatment Clinical Notes Section Notes 01/27/2024 Type 2 diabetes mellitus with polyneuropathy (ICD-10 - E11.42) Plan Of Treatment Next Appt Details Follow Up: 2 Months, Reason: Provider Name:Lily Freeman Maggie freeman, 04/16/2024 12:45:00 PM, [address] [place] [address], [phone], Procedure Notes * Category Sub-Category Detail Notes Keratoma Treatment Parring or Cutting o f Benign Hyperkeratotic Lesion(s) 55230 ( 2-4 Lesions ) - The Benign [...] bed tissue 6-10 (G0127) Progress Notes * FACUNDOKAURLexiOB: [birth year] (53 yo F)Acc No.[id number]:01/27/2024 Progress Note Patient:?Corazon CORTEZ Provider:?Lily Toledo DPM :1970???Age:53 Y???Sex:Female D ate:01/27/2024 Address:[address] [place] [address] [id number] Pcp:Guanakito Tyler MD Subjective: * Chief Complaints: [...] Procedures:?Keratoma Treatment:?Parring or Cutting of Benign Hyperkeratotic Lesion(s)?15794 ( 2-4 Lesions ) - The Benign [...] ING DYSTROPHIC NAILS ANY #, Modifiers: XS 57446 TRIM SKIN LESIONS, 2 TO 4, Modifiers: XS * Follow Up:?2 Months * Images: * Sign off status: Completed true * Provider:?Lily Toledo, DPM Date:?04/2023 Generated for Jeri hauser/Flores/Ralph on:?02/26/2024 12:09 PM EST History and Physical Notes * HPI [...]
--- OUTSIDE RECORDS SUMMARY | 2024-02-26 12:09 | XMS_ITS ---
Author Organization [facility] Address [address] [place] [address] Care Team Providers Care Plugger Name Role Phone Guanakito Tyler MD Primary Care Provider Lily Corral Unavailable [phone] Allergies Allergen (clinical drug ingredient) Drug/Non Drug [...] 024 Encounters Encounter Location Date Provider Diagnosis [facility] [address] [address] 08/29/2023 Lily Toledo Type 2 diabetes mellitus [...] Up: 2 Months, Reason: Provider Name:Lily freeman, 04/16/2024 12:45:00 PM, [address] [place] [address], [phone], Procedure Notes * Category Sub-Category Detail Notes Keratoma Treatment Parring or Cutting o f Benign Hyperkeratotic Lesion(s) 70490 ( 2-4 Lesions ) - The Benign [...] * Lexi CORTEZOB: [birth year] (53 yo F)Acc No.[id number]:08/29/2023 Progress Note Patient:?Corazon Cortez Provider:?Lily Toledo DPM :1970???Age:53 Y???Sex:Female D ate:08/29/2023 Address: [address] [id number] Pcp:Guanakito Tyler MD Subjective: * Chief Complaints: [...] Procedures:?Keratoma Treatment:?Parring or Cutting of Benign Hyperkeratotic Lesion(s)?01220 ( 2-4 Lesions ) - The Benign [...] ING DYSTROPHIC NAILS ANY #, Modifiers: XS 61043 TRIM SKIN LESIONS, 2 TO 4, Modifiers: [...] Provider:?Lily Toledo DPM Date:?06/2023 Generated for Jeri hauser/Flores/Ralph on:?02/26/2024 12:09 PM [...]
--- OUTSIDE RECORDS SUMMARY | 2024-02-26 12:09 | XMS_ITS ---
Author Organization [facility] Address [address] [facility] [place] [address] Care Team Providers Care Canning Machine Operator Name Role Phone Guanakito Tyler MD Primary Care Provider Lily Corral Unavailable [phone] Allergies Allergen (clinical drug ingredient) Drug/Non Drug [...] 024 Encounters Encounter Location Date Provider Diagnosis [facility] [address] [address] 11/14/2023 Lily Toledo Type 2 diabetes mellitus with polyneuropathy E11.42 and Tinea pedis B35.3 Assessments Encounter Date Diagnosis (ICD Code) Assessment Notes Treatment Notes Treatment Clinical Notes Section Notes 11/14/2023 Type 2 diabetes mellitus with polyneuropathy (ICD-10 - E11.42) 11/14/2023 Tinea pedis (ICD-10 - B35.3) Plan Of Treatment Next Appt Details Follow Up: 2 Months, Reason: Provider Name:Lily freeman, 04/16/2024 12:45:00 PM, [address] [place] [address], [phone], Procedure Notes * Category Sub-Category Detail Notes Keratoma Treatment Parring or Cutting o f Benign Hyperkeratotic Lesion(s) 07514 ( 2-4 Lesions ) - The Benign [...] * Lexi CORTEZOB: [birth year] (53 yo F)Acc No.[id number]:11/14/2023 Progress Note Patient:?Ran Cortezelle Provider:?Lily Toledo DPM :1970???Age:53 Y???Sex:Female D ate:11/14/2023 Address: [address] [id number] Pcp:Guanakito Tyler MD Subjective: * Chief Complaints: [...] Procedures:?Keratoma Treatment:?Parring or Cutting of Benign Hyperkeratotic Lesion(s)?75205 ( 2-4 Lesions ) - The Benign [...] ING DYSTROPHIC NAILS ANY #, Modifiers: XS 78151 TRIM SKIN LESIONS, 2 TO 4, Modifiers: [...] Provider:?Lily Toledo DPM Date:? Generated for Jeri hauser/Flores/Ralph on:?02/26/2024 12:09 PM [...]
--- OUTSIDE RECORDS SUMMARY | 2024-02-26 12:10 | XMS_ITS | Continuity of Care Document ---
Author Organization [facility], [facility] 2nd floor Address [address] [place] [address] Care Team Providers Care Lab Director Name Role Phone JUAN J BARKER Primary Care Provider Assessment No assessment recorded. Plan of Treatment Reminders Order Date Submit Date Provider Last Modified By Organization Details Last Modified Time Details Appointments RECHECK 2024 09:30A M Jose Antonio Navarrete PA-C Not available Not available Not available RECHECK 2024 03:00P M Jose Antonio Navarrete PA-C Not available Not available Not available Lab None recorded . Referral None recorded . Procedures None recorded . Surgeries None recorded . Imaging None recorded . Medication Orders None recorded . Patient TargetsNo targets recorded. Patient InstructionsNo instructions recorded. Reason for Referral None Reported. Problems Name Problem SNOMED Code Status Onset Date Resolution Date Notes Provider Name and Address Organization Details Recorded Time Osteoarthritis of knee 765948644 Active 2023 Jose Antonio Navarrete PA-C [address] [place] [address], [address], [facility] 06:31:49 Problem Notes None recorded. Procedures Surgical History Date Name Laterality Status Provider Name and Address Organization Details Recorded Time 02/11/2024 Sports Knee 4&1 completed Jose Antonio Navarrete PA-C [address] [address], [place], [address], [facility] 02/11/2024 06:26:49 11/12/2023 Sports Knee 4&1 completed Jose Antonio Navarrete PA-C [address], [address], [facility] 11/12/2023 05:57:52 09/29/2023 Sports Knee 4&1 completed Jose Antonio Navarrete PA-C [address] [address], [place], [address], [facility] 09/29/2023 08:27:22 06/25/2023 Sports Knee 4&1 completed Jose Antonio Navarrete PA-C [address] [facility] [address], [place], [address], [facility] 06/25/2023 08:35:22 Imaging Results None recorded. Procedure Notes None recorded. Medical Equipment None Reported. Allergies Allergen ID Allergen Name Allergen Category Reaction Reaction Severity Criticality Documentation Date Start Date Code Code System Note Provider Name and Address Organization Details Recorded Time 354227 Tylenol with Codeine medicatio n Not available Not available Not available 06/25/2023 96267 6 RxNorm Jose Antonio Navarrete PA-C [address], [place], [address], [facility] 08:29:36 Medications Name Sig Start Date Stop Date Status Note LastModified by Organization Details LastModified Time metformin 500 mg tablet TAKE 1 TABLET BY MOUTH IN THE MORNING AND 2 TABLETS IN THE EVENING active Not Available Not Available No t Available atorvastati n 10 mg tablet TAKE 1 TABLET BY MOUTH ONCE DAILY active Not Available Not Available No t Available diltiazem CD 240 mg capsule,ext ended release 24 hr TAKE 1 CAPSULE BY MOUTH AT BEDTIME active Not Available Not Available No t Available glipizide ER 5 mg tablet, extended release 24 hr TAKE 2 TABLETS BY MOUTH TWICE A DAY active Not Available Not Available No t Available ciprofloxac in 0.3 % eye drops 11/09 completed Not Available Not Available Not Available clotrimazol e-betametha sone 1 %-0.05 % topical cream 11/09 completed Not Available Not Available Not Available flecainide 100 mg tablet TAKE 1 & 1/2 (ONE & ONE-HALF) TABLETS BY MOUTH TWICE DAILY active Not Available Not Available No t Available methimazole 5 mg tablet TAKE 1 TABLET BY MOUTH ONCE DAILY active Not Available Not Available No t Available betamethaso ne, augmented 0.05 % topical ointment 11/09 completed Not Available Not Available Not Available omeprazole 20 mg capsule,del ayed release TAKE 1 CAPSULE BY MOUTH ONCE DAILY active Not Available Not Available No t Available furosemide 20 mg tablet TAKE 1 TABLET BY MOUTH ONCE DAILY active Not Available Not Available No t Available cefuroxime axetil 500 mg tablet 11/09 completed Not Available Not Available Not Available ketoconazol e 2 % topical cream 11/09 completed Not Available Not Available Not Available metformin ER 750 mg tablet,exte nded release 24 hr 11/09 completed Not Available Not Available Not Available Eliquis 5 mg tablet TAKE 1 TABLET BY MOUTH TWICE DAILY active Not Available Not Available No t Available Contrave 8 mg-90 mg tablet,exte nded release active Not Available Not Available Not Available Mounjaro 7.5 mg/0.5 mL subcutaneou s pen injector 11/09 completed Not Available Not Available Not Available Mounjaro 15 mg/0.5 mL subcutaneou s pen injector INJECT 15 MG SUBCUTANE OUSLY ONCE A WEEK active Not Available Not Available No t Available Mounjaro 10 mg/0.5 mL subcutaneou s pen injector 11/09 completed Not Available Not Available Not Available Mounjaro 12.5 mg/0.5 mL subcutaneou s pen injector 11/09 completed Not Available Not Available Not Available Vitals Date Recorded Body height Body mass index (BMI) Body weight Provider Name and Address Organization Details Last Updated DateTime 02/11/2024 172.72 cm 45 kg/m2 471566.34 g Jose Antonio Navarrete PA-C [address] [facility] [address], [place], [address], [place] - [place] [facility] 02/11/2024 08:50:04 Social History None recorded. Functional Status None recorded. Mental Status None recorded. Family History Nothing Reported. Medical History Condition Response Heart Trouble Y Diabetes Y Arthritis Y Thyroid Problems Y Sleep Apnea Y Gynecological HistoryNo gynecological history recorded. Obstetrics History GPAL:G 0 P 0 0 0 0 Past Encounters Encounter ID Performer Location Encounter Start Date Encounter Closed Date Diagnosis/Indication Diagnosis SNOMED-CT Code Diagnosis ICD10 Code [id number] Jose Antonio Navarrete PA-C [address] [place] [address] 02/11/2024 08:26:28 02/11/2024 09:23:31 Osteoarthritis of knee 264129769 M17.9 Health Concerns Section Related Observation LastModified by Organization Detai ls LastModified Time None Recorded Concern Status LastModified by Organization Details LastModified Time None Recorded Payers Encounter Date Sequence Insurance Name Policy Number Policy Angela Covered Member ID Angela Member ID Guarantor Name 02/11/2024 1 [place] ([place]O) [id number] Corazon Cortez [id number] Corazon Cortez Notes Date Note Type Note Provider Name and Address Organization Details Recorded Time 02/11/2024 text/html I am seeing the patient today under the supervision of Dr. Cox who was available but who did not see the patient. HPI: Corazon comes in today 53-year-old female with primary chief complaint of left knee pain. She is known to me she is hoping to consider total knee arthroplasty, continues to make excellent progress regarding reducing of her BMI now is Interval History:Patient returns today for follow-up evaluation, reports steady improvement in progress regarding weight loss as discussed previously she has noted substantial improvements in overall symptoms upon presentation today. PMH/PSH/MEDS/ALL/FMH /SOC HX/ ROS: All reviewed in detail per my medical intake sheet General Exam: Vitals signs as noted below, antalgic gait noted. Mental Status: Alert and oriented x3. Normal insight, affect, and grooming. 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 No spasticity or clonus noted. Extremities: Calves are soft and nontender. Skin on lower extremities is intact. Palpable pedal pulses bilaterally. Orthopedic Exam: Left knee Restricted range of motion good anterior-posterior stability no laxity valgus or varus stressing. Exquisite medial and the lateral joint line tenderness with patellofemoral crepitus noted, 1+ effusion, 4/5 strength. X-rays report: 4 views ordered and independently reviewed previously at [facility] of the bilateral knee taken previously show advanced medial apartment and patellofemoral osteoarthritis. Assessment: Left knee medial compartment and patellofemoral osteoarthritis. Plan: The patient was thoroughly counseled today regarding their knee condition, its natural history, and the treatment options both nonoperative and operative. The patient is interested in receiving an injection with corticosteroid. Reemphasized the benefits of physical therapy, stressed the importance of compliance regarding home exercises. [employer] speech recognition oval or circular glass cutter software was used to create portions of this document. An attempt at proofreading has been made to minimize errors. Please call for corrections Jose Antonio Navarrete PA-C [address] [place] [address] [address], [place], [address], [facility] - [place] [facility] 02/11/2024 09:23:29 OBGyn Episode No OBEpisode recorded.
--- OUTSIDE RECORDS SUMMARY | 2024-02-26 12:10 | XMS_ITS | Patient Health Record ---
Author Organization [facility] Address [address] [facility] [place] [address] Care Team Providers Care Manager Data Warehousing Name Role Phone Guanakito Tyler MD Primary Care Provider Lily Corral Unavailable [phone] Allergies Allergen (clinical drug ingredient) Drug/Non Drug [...] (HH) 5.6 HEMOGLOBIN A1C (GLYCOHEMOGLO BIN) Reviewed date:11/14/2023 10:19:34 AM Interpretation: Performing Lab: Notes/Report: TOTAL HEMOGLOBIN (HGBA1C) 5.5 HEMOGLOBIN A1C (GLYCOHEMOGLO BIN) Reviewed date:01/27/2024 09:20:34 AM Interpretation: Performing Lab: Notes/Report: TOTAL HEMOGLOBIN (HGBA1C) 5.8 HEMOGLOBIN A1C (GLYCOHEMOGLO BIN) Reviewed date:08/29/2023 09:18:07 AM Interpretation: Performing Lab: Notes/Report: HEMOGLOBIN A1C % (HH) 6.2 Reason For Referral No Information Medications Medication [...] Problem Acquired hammer toe of right foot (725894120266 9105) Other hammer toe(s) (acquired), right foot (M20.41) Active confirmed Problem Acquired hammer toe of left foot (660680289724 9103) Other hammer toe(s) (acquired), left foot (M20.42) Active confirmed Problem 187590395 Hammer toe of le ft foot (M20.42) Active confirmed Problem 47475029 Type 2 diabetes mellitus with polyneuropathy (E11.42) Active confirmed Vital Signs Blood pressure diastolic 64 mm Hg 01/27/2024 Height 5ft6in in 01/27/2024 Blood pressure systolic 110 mm Hg 01/27/2024 Weight 303 lbs 01/27/2024 BMI 48.9 kg/m2 01/27/2024 Encounters Encounter Location Date Provider Diagnosis [facility] [place] [address] [place] [address] 04/18/2023 Lily Toledo Type 2 diabetes mellitus with polyneuropathy E11.42 ; Tinea pedis B35.3 ; Other hammer toe(s) (acquired), right foot M20.41 and Other hammer toe(s) (acquired), left foot M20.[address] [address] 06/27/2023 Lily Serranoa Type 2 diabetes mellitus with polyneuropathy E11.42 and Tinea pedis B35.[address] [address] 08/29/2023 Lily Toledo Type 2 diabetes mellitus with polyneuropathy E11.42 ; Tinea pedis B35.3 and Edema, lower extremity R60.[address] [address] 11/14/2023 Lily Toledo Type 2 diabetes mellitus with polyneuropathy E11.42 and Tinea pedis B35.[address] [address] 01/27/2024 Lily Toledo Type 2 diabetes mellitus [...] Treatment Next Appt Details Provider Name:Lily freeman, 04/16/2024 12:45:00 PM, [address] [place] [address], [phone], Insurance Providers Payer Name Payer Address Payer Phone Subscriber Number Group Number Insured Name Patient Relationship to Insured Coverage Start Date Coverage End Date [facility] [address] [place] [address] [phone] [id number] Corazon Coretz Self - patient is the insured Medical (General) History Medical History History ICD Code type II diabetes asthma Back,Hip,and Knee pain Broken bones Numbness Sciatica chronic sinusitis thyroid Chicken pox Graves disease A fib schambergs Covid 19 Surgical History Surgery Date(Month/Year) gall bladder Hernia Repair Cardioversion 09/2019 knee, meniscus sx left 11/30/2021
--- OUTSIDE RECORDS SUMMARY | 2024-02-26 12:10 | XMS_ITS | Continuity of Care Document ---
Author Organization [facility], [facility] 2[facility] Address [address] [place] [address] Care Team [address]iders Care Place Change Roof Bolter Name Role Phone JUAN J BARKER Primary [...] Organization Details Recorded Time Osteoarthritis of knee 316543878 Active 2023 Jose Antonio Navarrete PA-C [address] [place] [address], [address], [facility] 06:31:49 Problem Notes None recorded. Procedures Surgical History Date Name Laterality Status Provider Name and Address Organization Details Recorded Time 02/11/2024 Sports Knee 4&1 completed Jose Antonio Navarrete PA-C [address] [employer] [address], [place], [address], [facility] 02/11/2024 06:26:49 11/12/2023 Sports Knee 4&1 completed Jose Antonio Navarrete PA-C [address], [address], [facility] 11/12/2023 05:57:52 09/29/2023 Sports Knee 4&1 completed Jose Antonio Navarrete PA-C [address] [employer] [address] [address], [place], [address], [facility] 09/29/2023 08:27:22 06/25/2023 Sports Knee 4&1 completed Jose Antonio Navarrete PA-C [address] [facility] [address], [place], [address], [facility] 06/25/2023 08:35:22 Imaging Results None recorded. Procedure Notes None recorded. Medical Equipment None Reported. Allergies Allergen ID Allergen Name Allergen Category Reaction Reaction Severity Criticality Documentation Date Start Date Code Code System Note Provider Name and Address Organization Details Recorded Time 040282 Tylenol with Codeine medicatio n Not available Not available Not available 06/25/2023 05550 6 RxNorm Jose Antonio Navarrete PA-C [address], [place], [address], [facility] 08:29:36 Medications Name Sig Start [...] and Address Organization Details Last Updated DateTime 12/23/2023 172.72 cm 45 kg/m2 598385.34 g Jose Antonio Navarrete PA-C [address] [place] [address] [address], [place], [address], [place] - [facility] 12/23/2023 10:10:44 Social History None recorded. Functional Status None recorded. Mental Status None recorded. Family History Nothing Reported. Medical History Condition Response Diabetes Y Arthritis Y Thyroid Problems Y Sleep Apnea Y Heart Trouble Y Gynecological HistoryNo gynecological history recorded. Obstetrics History GPAL:G 0 P 0 0 0 0 Past Encounters Encounter ID Performer Location Encounter Start Date Encounter Closed Date Diagnosis/Indication Diagnosis SNOMED-CT Code Diagnosis ICD10 Code [id number] Jose Antonio Navarrete PA-C [facility] [address] [place] [address] 12/23/2023 09:57:27 01/12/2024 09:47:50 Osteoarthritis of knee 616706121 M17.9 Health Concerns Section Related Observation LastModified by Organization Detai ls LastModified Time None Recorded Concern Status LastModified by Organization Details LastModified Time None Recorded Payers Encounter Date Sequence Insurance Name Policy Number Policy Angela Covered Member ID Angela Member ID Guarantor Name 12/23/2023 1 [employer] [facility] ([place]) [id number] Corazon Cortez [id number] Corazon Cortez Notes Date Note Type Note Provider Name and Address Organization Details Recorded Time 12/23/2023 text/html I am seeing the patient today under the supervision of Dr. Arce who was available but who did not see the patient. HPI: Corazon comes in today 53-year-old female with primary chief complaint of left knee pain. She is known to me she is hoping to consider total knee arthroplasty, continues to make excellent progress regarding reducing of her BMI now 44.7 reports no recent complications or issues. Interval History: Patient returns today for follow-up evaluation she continues to make excellent progress she recently has come off her metformin and is very pleased with the results of her ongoing weight loss. She comes in today reporting worsening symptoms wanting to have a discussion about total knee arthroplasty. PMH/PSH/MEDS/ALL/FMH /SOC HX/ ROS: All reviewed in detail per my medical intake sheet General Exam: Vitals signs as noted below, antalgic gait noted. Mental Status: Alert and oriented x3. Normal insight, affect, and grooming. 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 No spasticity or clonus noted. Extremities: Calves are soft and nontender. Skin on lower extremities is intact. Palpable pedal pulses bilaterally. Orthopedic Exam: Right knee Restricted range of motion good anterior-posterior stability no laxity valgus or varus stressing. Exquisite medial and the lateral joint line tenderness with patellofemoral crepitus noted, 1+ effusion, 4/5 strength. X-rays report: 4 views ordered and independently reviewed today at [facility] of the bilateral knee taken previously show advanced medial apartment and patellofemoral osteoarthritis. Assessment: Left and right knee medial compartment and patellofemoral osteoarthritis. Plan: The patient was thoroughly counseled today regarding their knee condition, its natural history, and the treatment options both nonoperative and operative. We discussed the role of total knee arthroplasty scheduling, she became very tearful when we had this discussion her brother has recently undergone surgeries had a bunch of complication therefore she is not in a hurry to discuss this option. Ultimately we decided to go forward with right knee injection today encouraged her to continue managing her BMI which has improved dramatically with the goal of considering arthroplasty sometime in the spring. GrowYo speech recognition dish person software was used to create portions of this document. An attempt at proofreading has been made to minimize errors. Please call for corrections Jose Antonio Navarrete PA-C [address] [place] [address] [address], [place], [address], [facility] - [facility] 12/23/2023 10:32:57 OBGyn Episode No OBEpisode recorded.
--- OUTSIDE RECORDS SUMMARY | 2024-02-26 12:10 | XMS_ITS | Data Portability ---
Author Organization [facility], [facility] Address [address] [place] [address] Care Team Providers Care Elementary Vocal Music Teacher Name Role Phone JUAN J BARKER Primary Care Provider [phone] Assessment No assessment recorded. Plan of Treatment Reminders Order Date Submit Date Provider Last Modified By Organization Details Last Modified Time Details Appointments RECHECK 2024 09:30A M Jose Antonio Navarrete PA-C Not available Not available Not available RECHECK 2024 03:00P Rachana Navarrete PA-C Not available Not available Not available Lab None recorded . Referral None recorded . Procedures None recorded . Surgeries None recorded . Imaging None recorded . Medication Orders None recorded . Patient TargetsNo targets recorded. Patient InstructionsNo instructions recorded. Reason for Referral None Reported. Results Created Date Observation Date Name Description Value Unit Range Abnormal Flag Note LastModifiedBy Organization Detail LastModifiedTime 10/25/19 24 10/23/2021 imagi ng/di agnos tic resul t No observ ation record ed. [email or web address] Not Available 09/26 09:51:01 Result Notes None recorded. Problems Name Problem SNOMED Code Status Onset Date Resolution Date Notes Provider Name and Address Organization Details Recorded Time Osteoarthritis of knee 152364276 Active 2023 Jose Antonio Navarrete PA-C [address], [place], [address] , [facility] 06:31:49 Problem Notes None recorded. Procedures Surgical History Date Name Laterality Status Provider Name and Address Organization Details Recorded Time 02/11/2024 Sports Knee 4&1 completed Jose Antonio Navarrete PA-C [address], [place], [address], [facility] 02/11/2024 06:26:49 11/12/2023 Sports Knee 4&1 completed Jose Antonio Navarrete PA-C [address], [place], [address], [facility] 11/12/2023 05:57:52 09/29/2023 Sports Knee 4&1 completed Jose Antonio Navarrete PA-C [address], [place], [address], [facility] 09/29/2023 08:27:22 06/25/2023 Sports Knee 4&1 completed Jose Antonio Navarrete PA-C [address], [place], [address], [facility] 06/25/2023 08:35:22 Imaging Results Imaging Date Name Status LastModified by [facility] Details LastModified Time 10/23/2021 imaging/diag nostic result completed [email or web address] Information not available 10/25/2023 09:51:01 Procedure Notes None recorded. Medical Equipment None Reported. Allergies Allergen ID Allergen Name Allergen Category Reaction Reaction Severity Criticality Documentation Date Start Date Code Code System Note Provider Name and Address Organization Details Recorded Time 547095 Tylenol with Codeine medicatio n Not available Not available Not available 06/25/2023 92232 6 RxNorm Jose Antonio Navarrete PA-C [address] [facility], [place], [address], [facility] 08:29:36 Medications Name Sig Start Date Stop [...] and Address Organization Details Last Updated DateTime 06/25/2023 172.72 cm 44.7 kg/m2 865739.16 g Jose Antonio Navarrete PA-C [address], [place], [address], [facility] 06/25/2023 08:29:06 Date Recorded Body height Body mass index (BMI) Body weight Provider Name and Address Organization Details Last Updated DateTime 09/29/2023 172.72 cm 43.5 kg/m2 984348.42 g Jose Antonio Navarrete PA-C [address] [place] [address], [place], [address], [facility] 09/29/2023 08:18:42 Date Recorded Body height Body mass index (BMI) Body weight Provider Name and Address Organization Details Last Updated DateTime 11/12/2023 172.72 cm 44.4 kg/m2 506519.97 g Jose Antonio Navarrete PA-C [address] [place] [address], [place], [address], [facility] 11/12/2023 08:24:36 Date Recorded Body height Body mass index (BMI) Body weight Provider Name and Address Organization Details Last Updated DateTime 12/23/2023 172.72 cm 45 kg/m2 716769.34 g Jose Antonio Navarrete PA-C [address] [place] [address], [place], [address], [facility] 12/23/2023 10:10:44 Date Recorded Body height Body mass index (BMI) Body weight Provider Name and Address Organization Details Last Updated DateTime 02/11/2024 172.72 cm 45 kg/m2 168397.34 g Jose Antonio Navarrete PA-C [address], [address], [facility] 02/11/2024 08:50:04 Social History None recorded. Functional [...] Diagnosis/Indication Diagnosis SNOMED-CT Code Diagnosis ICD10 Code 6876764 [facility] [address] [place] [address] 06/25/2023 08:11:22 07/08/2023 14:07:40 Osteoarthritis of knee 883722872 M17.9 6843769 [facility] [address] [place] [address] 09/29/2023 08:04:13 10/20/2023 16:00:21 Osteoarthritis of knee 715562417 M17.9 8516632 [facility] [address] [place] [address] 11/12/2023 08:10:47 11/24/2023 14:23:35 Osteoarthritis of knee 201482335 M17.9 3503195 [facility] [address] [place] [address] 12/23/2023 09:57:27 01/12/2024 09:47:50 Osteoarthritis of knee 430084792 M17.9 7472196 Jose Antonio Navarrete PA-C [facility] [address] [place] [address] 02/11/2024 08:26:28 02/11/2024 09:23:31 Osteoarthritis of knee 113052193 M17.9 Health Concerns Section Related Observation LastModified by Organization Detai ls LastModified Time None Recorded Concern Status LastModified by Organization Details LastModified Time None Recorded Advance Directives Directive None Recorded Payers Encounter Date Sequence Insurance Name Policy Number Policy Angela Covered Member ID Angela Member ID Guarantor Name 06/25/2023 1 [place] [id number] Corazon Cortez [id number] Corazon Cortez 09/29/2023 1 [place] [id number] Corazon Cortez [id number] Corazon Cortez 11/12/2023 1 [place] [id number] Corazon Cortez [id number] 06 Corazon Cortez 12/23/2023 1 [place] [id number] Corazon Cortez [id number] 06 Corazon Cortez 02/11/2024 1 [facility] [facility] ([place]O) [id number] Corazon oCrtez [id number] Corazon Cortez Notes Date Note Type Note Provider Name and Address Organization Details Recorded Time 06/25/2023 text/html I am seeing the patient today [...] 44.7 reports no recent complications or issues. PMH/PSH/MEDS/ALL/FMH /SOC HX/ ROS: All reviewed in detail per my medical intake sheet General Exam: Vitals signs as noted below, antalgic gait noted. Mental Status: Alert and oriented x3. Normal insight, affect, and grooming. 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 No spasticity [...] views ordered and independently reviewed previously at [facility] of the bilateral knee taken previously show [...] the importance of compliance regarding home exercises. [email or web address] speech recognition industrial trainer software was used to create portions of this document. An attempt at proofreading has been made to minimize errors. Please call for corrections Jose Antonio Navarrete PA-C [address] [facility] [address] [facility], [place], [address], [facility] 06/25/2023 08:35:46 09/29/2023 text/html I am seeing the patient today under the supervision of Dr. Bashir who was available but who did not see the patient. HPI: Corazon comes in today 53-year-old female with primary chief complaint of Right knee pain. She is known to me she is hoping to consider total knee arthroplasty, continues to make excellent progress regarding reducing of her BMI now 44.7 reports no recent complications or issues. Interval history: Patient returns today for follow-up evaluation opting to go forward volume when the injection she has had increased glycemic numbers in the 400s with bilateral injections in the past PMH/PSH/MEDS/ALL/FMH /SOC HX/ ROS: All reviewed in detail per my medical intake sheet General Exam: Vitals signs as noted below, antalgic gait noted. Mental Status: Alert and oriented x3. Normal insight, affect, and grooming. 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 No spasticity [...] views ordered and independently reviewed previously at [facility] of the bilateral knee taken previously show advanced medial apartment and patellofemoral osteoarthritis. Assessment: Right knee medial compartment and patellofemoral osteoarthritis. Plan: The patient was thoroughly counseled today regarding their knee condition, its natural history, and the treatment options both nonoperative and operative. The patient is interested in receiving an injection with corticosteroid. Reemphasized the benefits of physical therapy, stressed the importance of compliance regarding home exercises. [facility] speech recognition industrial trainer software was used to create portions of this document. An attempt at proofreading has been made to minimize errors. Please call for corrections Jose Antonio Navarrete PA-C [address] [place] [address], [place], [address], [facility] 09/29/2023 08:27:42 11/12/2023 text/html I am seeing the patient today [...] the results of her ongoing weight loss. PMH/PSH/MEDS/ALL/FMH /SOC HX/ ROS: All reviewed in detail per my medical intake sheet General Exam: Vitals signs as noted below, antalgic gait noted. Mental Status: Alert and oriented x3. Normal insight, affect, and grooming. 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 No spasticity [...] views ordered and independently reviewed previously at [facility] of the bilateral knee taken previously show [...] the importance of compliance regarding home exercises. [facility] speech recognition industrial trainer software was used to create portions of this document. An attempt at proofreading has been made to minimize errors. Please call for corrections Jose Antonio Navarrete PA-C [address] [facility] [address], [place], [address], [facility] 11/12/2023 08:33:45 12/23/2023 text/html I am seeing the patient [...] oriented x3. Normal insight, affect, and grooming. 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 No spasticity [...] views ordered and independently reviewed today at [facility] of the bilateral knee taken previously show [...] of considering arthroplasty sometime in the spring. [facility] speech recognition industrial trainer software was used to create portions of this document. An attempt at proofreading has been made to minimize errors. Please call for corrections [facility], [place], [address], [facility] 12/23/2023 10:32:57 02/11/2024 text/html I am seeing the patient [...] oriented x3. Normal insight, affect, and grooming. 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 No spasticity [...] views ordered and independently reviewed previously at [facility] of the bilateral knee taken previously show [...] the importance of compliance regarding home exercises. [facility] speech recognition industrial trainer software was used to create portions of this document. An attempt at proofreading has been made to minimize errors. Please call for corrections Jose Antonio Navarrete PA-C [address], [place], [address], [facility] 02/11/2024 09:23:29 OBGyn Episode No OBEpisode recorded.
== END 2024-02-26 11:46 | disposition home or self-care (01) ==
LOC: HO.HWS 11:10
PROVIDERS: PCP Internal Medicine; Visit Provider Obstetrics & Gynecology
DX: R93.89 Abnormal findings on diagnostic imaging of other specified body structures (principal)
CPT/HCPCS: 99213

== ENCOUNTER 2024-04-21 10:08 | Outpatient (REF) | payer BC, SELFPAY ==
[2024-04-21 11:39] LABS: Estimated Average Glucose 108 mg/dL; Hemoglobin A1C 127.4182 umol/L; Hemoglobin A1c % 5.4 % (<6.0)
[2024-04-21 11:52] LABS: Alanine Aminotransferase 7 U/L (0-31); Albumin Level 4.1 g/dL (3.5-5.0); Anion Gap 12 (12-20); Aspartate Amino Transferase 15 U/L (5-31); Bilirubin Total 0.5 mg/dL (0.0-1.0); Blood Urea Nitrogen 11 mg/dL (9-16); Calcium 9.5 mg/dL (8.4-10.2); Carbon Dioxide 28 mmol/L (22-29); Chloride 105 mmol/L (96-108); Estimated Glomerular Filt Rate > 60; Glucose Random 96 mg/dL (60-115); Sodium 141 mmol/L (135-145); Total Protein 7.2 g/dL (6.5-8.0)
[2024-04-21 11:53] LABS: Alkaline Phosphatase 100 U/L (39-117)
[2024-04-21 12:00] LABS: Thyroid Stimulating Hormone 1.29 uIU/mL (0.32-4.0)
--- OUTSIDE RECORDS SUMMARY | 2024-04-21 12:18 | XMS_ITS | Patient Health Record ---
Author Organization [facility] Address [address] [place] [address] Care Team Providers Care Outsole Flexer Name Role Phone MADDIE REYES Unavailable [phone] ALLERGIES Allergen (clinical drug ingredient) Drug/Non Drug Allergy documented on EMR Reaction Allergy Type Onset Date Status ibuprofen Ibuprofen Blood thinner Drug Allergy Act indigo REASON FOR REFERRAL No Information MEDICATIONS Medication SIG (Take, Route, Frequency, Duration) Notes Start Date End Date Status Vitamin D (Cholecalciferol) 50 MCG (1999) 1 capsule Orally Once a day Active Vitamin B 12 500 MCG 1 tablet Orally Once a day Active Omeprazole 20 MG Oral for 30 Days Active Eliquis 5 MG Oral for 30 Days Active dilTIAZem [...] twice a day for 30 days Active Mounjaro 12.5 MG/0.5ML 12.5mg Subcutaneo us weekly for 30 days Active Flecainide Acetate 100 MG Oral for 90 Days Active Atorvastatin Calcium 10 MG Oral for 90 Days Active methIMAzole 5 MG 1 tablet Oral Once e very other day for 90 days Active Mounjaro 15 MG/0.5ML 15mg Subcutaneous w [facility] for 30 days 03/10/2023 Active Magnesium Oxide 400 MG Oral for 30 Days Active Vitamin C Active SOCIAL HISTORY Tobacco Use: Social History Observation Description Date Details (start date - stop date) Never Smoker NA - NA Sex Assigned At : Social History Observation Description Sex Assigned At Unknown Tobacco Use/Smoking Question Answer Notes Are you a nonsmoker PROBLEMS Problem Type ICD Code Onset Dates Problem Status W/U Status Risk SNOMED Code Notes Problem Morbid obesity (E66.01) Active confirmed 282851333 Problem NICHOLE (obstructive sleep apnea) (G47.33) Active confirmed 42349696 Problem Chronic anticoagulation (Z79.01) Active confirmed 960366179 Problem Type 2 diabetes mellitus without complication, without long-term current use of insulin (E11.9) Active confirmed 483388664 Problem BMI 50.0-59.9, adult (Z68.43) Active confirmed 032774349 Problem Graves disease (E05.00) Active confirmed 258229723 Problem PAF (paroxysmal atrial fibrillation) (I48.0) Active confirmed 328807288 Problem BMI 45.0-49.9, adult (Z68.42) Active confirmed 717426011 VITAL SIGNS Heart Rate 83 /min 03/17/2024 Blood pressure diastolic 84 mm Hg 03/17/2024 Oximetry 96 % 03/17/2024 Height 66 in 03/17/2024 Blood pressure systolic 140 mm Hg 03/17/2024 Weight 302 lbs 03/17/2024 BMI 48.74 kg/m2 03/17/2024 Encounters Encounter Location Date Provider Diagnosis [place] [id number] [address] 05/08/2023 MADDIE REYES Morbid obesity E66.0 1 ; BMI 50.0-59.9, adult Z68.43 ; Graves disease E05.00 ; Type 2 diabetes mellitus without complication, without long-term current use of insulin E11.9 ; Chronic anticoagulation Z79.01 ; PAF (paroxysmal atrial fibrillation) I48.0 and NICHOLE (obstructive sleep apnea) G47.33 [place] [address] [address] 06/25/2023 MADDIE REYES Morbid obesity E66.0 1 ; Graves disease E05.00 ; Type 2 diabetes mellitus without complication, without long-term current use of insulin E11.9 ; Chronic anticoagulation Z79.01 ; PAF (paroxysmal atrial fibrillation) I48.0 ; NICHOLE (obstructive sleep apnea) G47.33 and BMI 45.0-49.9, adult Z68.42 [place] [address] [address] 08/07/2023 MADDIE BORHOT Morbid obesity E66.0 1 ; BMI 45.0-49.9, adult Z68.42 ; Dietary counseling and surveillance Z71.3 ; Type 2 diabetes mellitus without complication, without long-term current use of insulin E11.9 ; Graves disease E05.00 ; Chronic anticoagulation Z79.01 ; PAF (paroxysmal atrial fibrillation) I48.0 and NICHOLE (obstructive sleep apnea) G47.33 [facility] [address] [address] 10/16/2023 MADDIE BORHOT Morbid obesity E66.0 1 ; BMI 45.0-49.9, adult Z68.42 ; Dietary counseling and surveillance Z71.3 ; Type 2 diabetes mellitus without complication, without long-term current use of insulin E11.9 ; Graves disease E05.00 ; Chronic anticoagulation Z79.01 ; PAF (paroxysmal atrial fibrillation) I48.0 and NICHOLE (obstructive sleep apnea) G47.33 [facility] [address] [address] 12/18/2023 MADDIE BORT Morbid obesity E66.0 1 ; BMI 45.0-49.9, adult Z68.42 ; Dietary counseling and surveillance Z71.3 ; Type 2 diabetes mellitus without complication, without long-term current use of insulin E11.9 ; Graves disease E05.00 ; Chronic anticoagulation Z79.01 ; PAF (paroxysmal atrial fibrillation) I48.0 and NICHOLE (obstructive sleep apnea) G47.33 [facility] [address] [address] 03/17/2024 MADDIE BORT Morbid obesity E66.0 1 ; BMI 45.0-49.9, adult Z68.42 ; Dietary counseling and surveillance Z71.3 ; Type 2 diabetes mellitus without complication, without long-term current use of insulin E11.9 ; Graves disease E05.00 ; Chronic anticoagulation Z79.01 ; PAF (paroxysmal atrial fibrillation) I48.0 and NICHOLE (obstructive sleep apnea) G47.33 [address] [place] [address] 05/16/2023 MADDIE REYES [facility] [address] [place] [address] 07/30/2023 MADDIE REYES Morbid obesity E66.[address] [facility] [address] [facility] [address] [facility] [address] [place] [address] 10/22/2023 MADDIE REYES Morbid obesity E66.[address] [facility] [address] [facility] [address] [facility] [address] [place] [address] 11/07/[address] [facility] [address] [facility] [address] [place] [address] 11/12/2023 MADDIE REYES Morbid obesity E66.[address] [facility] [address] [facility] [address] [facility] [address] [place] [address] 04/19/2024 MADDIE REYES ASSESSMENTS Encounter Date Diagnosis Assessment Notes Treatment Notes Treatment Clinical Notes Section Notes 05/08/2023 Morbid obesity (ICD-10 - E66.01) #Weight [...] minimum of 6 months The most recent [place] [employer] clinical endocrinologists and [place] [employer] guidelines recommend patients who [...] track activity level. Consider using apps like [employer], [employer], lose it, stick as needed for self-monitoring and weight management. Consider group exercises. Consider hiring a personal banker. Regular exercise is carvalho to sustainable health [...] counseling and psychiatry and Dr Andres at [facility] [employer]. We would like to cover regular topics [...] software and direct typing Please excuse inadvertent senior safety management consultant or typing errors, or uncorrected word substitutions Although every attempt has been made by the provider to proofread this document, occasional misspellings and typographical errors may still be present Due to the previous pandemic, and the use of personal protective equipment (PPE) This may decrease voice recognition accuracy Inadvertent senior safety management consultant errors may occur 06/25/2023 Morbid obesity (ICD-10 [...] minimum of 6 months The most recent [place] [employer] clinical endocrinologists and [place] [employer] end[employer] guidelines recommend patients who [...] track activity level. Consider using apps like [employer], [employer], lose it, stick as needed for self-monitoring and weight management. Consider group exercises. Consider hiring a personal banker. Regular exercise is carvalho to sustainable health [...] counseling and psychiatry and Dr Andres at [facility] [employer]. We would like to cover regular topics [...] software and direct typing Please excuse inadvertent senior safety management consultant or typing errors, or uncorrected word substitutions Although every attempt has been made by the provider to proofread this document, occasional misspellings and typographical errors may still be present Due to the previous pandemic, and the use of personal protective equipment (PPE) This may decrease voice recognition accuracy Inadvertent senior safety management consultant errors may occur 06/25/2023 Graves disease (ICD-10 [...] minimum of 6 months The most recent [place] [employer] clinical endocrinologists and [place] [employer] end[employer] guidelines recommend patients who [...] track activity level. Consider using apps like [employer], myfitnesspal, lose it, stick as needed for self-monitoring and weight management. Consider group exercises. Consider hiring a personal banker. Regular exercise is carvalho to sustainable health [...] counseling and psychiatry and Dr Andres at [facility] [employer]. We would like to cover regular topics [...] software and direct typing Please excuse inadvertent senior safety management consultant or typing errors, or uncorrected word substitutions Although every attempt has been made by the provider to proofread this document, occasional misspellings and typographical errors may still be present Due to the previous pandemic, and the use of personal protective equipment (PPE) This may decrease voice recognition accuracy Inadvertent senior safety management consultant errors may occur 07/30/2023 Morbid obesity (ICD-10 - E66.01) 08/07/2023 Morbid obesity (ICD-10 - E66.01) #Weight Management 08/07/2023 thriving Thyroid function is very inconsistent and sporadic at the moment which can alter and hinder weight loss 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 Consider using apps like [employer], myfitnesspal, lose it, stick as needed for self-monitoring and weight management. Consider group exercises. Consider hiring a personal banker. Regular exercise is carvalho to sustainable health [...] counseling and psychiatry and Dr Andres at [facility] [employer]. We would like to cover regular topics [...] software and direct typing Please excuse inadvertent senior safety management consultant or typing errors, or uncorrected word substitutions Although every attempt has been made by the provider to proofread this document, occasional misspellings and typographical errors may still be present Due to the previous pandemic, and the use of personal protective equipment (PPE) This may decrease voice recognition accuracy Inadvertent senior safety management consultant errors may occur 08/07/2023 BMI 45.0-49.9, adult (ICD-10 - Z68.42) #Weight Management 08/07/2023 thriving Thyroid function is very inconsistent and sporadic at the moment which can alter and hinder weight loss 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 Consider using apps like [employer], [employer], lose it, stick as needed for self-monitoring and weight management. Consider group exercises. Consider hiring a personal banker. Regular exercise is carvalho to sustainable health [...] counseling and psychiatry and Dr Andres at [facility] [employer]. We would like to cover regular topics [...] software and direct typing Please excuse inadvertent senior safety management consultant or typing errors, or uncorrected word substitutions Although every attempt has been made by the provider to proofread this document, occasional misspellings and typographical errors may still be present Due to the previous pandemic, and the use of personal protective equipment (PPE) This may decrease voice recognition accuracy Inadvertent senior safety management consultant errors may occur 10/16/2023 Morbid obesity (ICD-10 - E66.01) #Weight Management 10/16/2023 Labs reviewed from [facility] September 2023 thriving Given ongoing weight loss this may be a recurrent problem until her weight stabilizes 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 Consider using apps like [employer], [employer], lose it, stick as needed for self-monitoring and weight management. Consider group exercises. Consider hiring a personal banker. Regular exercise is carvalho to sustainable health [...] counseling and psychiatry and Dr Andres at [facility] [employer]. We would like to cover regular topics [...] software and direct typing Please excuse inadvertent senior safety management consultant or typing errors, or uncorrected word substitutions Although every attempt has been made by the provider to proofread this document, occasional misspellings and typographical errors may still be present Due to the previous pandemic, and the use of personal protective equipment (PPE) This may decrease voice recognition accuracy Inadvertent senior safety management consultant errors may occur 10/22/2023 Morbid obesity (ICD-10 - E66.01) 11/12/2023 Morbid obesity (ICD-10 - E66.01) 12/18/2023 Morbid obesity (ICD-10 - E66.01) #Weight Management 12/18/2023 Labs reviewed from [facility] September 2023 thriving Given ongoing weight loss this may be a recurrent problem until her weight stabilizes 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 and rechecking labs every 4 weeks or [...] minimum of 6 months The most recent [place] [employer] of clinical endocrinologists and [place] [employer] end[employer]inology guidelines recommend patients who [...] software and direct typing Please excuse inadvertent senior safety management consultant or typing errors, or uncorrected word substitutions Although every attempt has been made by the provider to proofread this document, occasional misspellings and typographical errors may still be present Due to the previous pandemic, and the use of personal protective equipment (PPE) This may decrease voice recognition accuracy Inadvertent senior safety management consultant errors may occur 03/17/2024 Morbid obesity (ICD-10 - E66.01) #Weight Management 03/17/2024 She continues to follow with endocrinology and her PCP to follow her thyroid levels closely as she is on methimazole She is also working with orthopedic surgery, she is getting injections in her knee They are holding off on surgery until last resort Her PCP will be retiring in July therefore we switching to us for primary care services She will continue current 15 mg dosing Total time spent today was 30 minutes of which greater than 50% was spent on coordinating and counseling Patient has been found to be obese with a BMI of (48). Patient has class (3) obesity. We are a board certified obesity and weight management practice Patient has trialed behavioral modification, dietary restrictions and exercise for a minimum of 6 months The most recent [place] [employer] of clinical endocrinologists and [place] [employer] end[employer]in[employer] guidelines recommend patients who [...] software and direct typing Please excuse inadvertent senior safety management consultant or typing errors, or uncorrected word substitutions Although every attempt has been made by the provider to proofread this document, occasional misspellings and typographical errors may still be present Due to the previous pandemic, and the use of personal protective equipment (PPE) This may decrease voice recognition accuracy Inadvertent senior safety management consultant errors may occur 12/18/2023 BMI 45.0-49.9, adult (ICD-10 - Z68.42) #Weight Management 12/18/2023 Labs reviewed from [facility] September 2023 thriving Given ongoing weight loss this may be a recurrent problem until her weight stabilizes 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 and rechecking labs every 4 weeks or [...] minimum of 6 months The most recent [place] [employer] of clinical endocrinologists and [place] [employer] endocrinology guidelines recommend patients who [...] software and direct typing Please excuse inadvertent senior safety management consultant or typing errors, or uncorrected word substitutions Although every attempt has been made by the provider to proofread this document, occasional misspellings and typographical errors may still be present Due to the previous pandemic, and the use of personal protective equipment (PPE) This may decrease voice recognition accuracy Inadvertent senior safety management consultant errors may occur 10/16/2023 BMI 45.0-49.9, adult (ICD-10 - Z68.42) #Weight Management 10/16/2023 Labs reviewed from [facility] September 2023 thriving Given ongoing weight loss this may be a recurrent problem until her weight stabilizes 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 Consider using apps like [employer], myfitnesspal, lose it, stick as needed for self-monitoring and weight management. Consider group exercises. Consider hiring a personal banker. Regular exercise is carvalho to sustainable health [...] counseling and psychiatry and Dr Andres at [facility]. We would like to cover regular topics [...] software and direct typing Please excuse inadvertent senior safety management consultant or typing errors, or uncorrected word substitutions Although every attempt has been made by the provider to proofread this document, occasional misspellings and typographical errors may still be present Due to the previous pandemic, and the use of personal protective equipment (PPE) This may decrease voice recognition accuracy Inadvertent senior safety management consultant errors may occur 08/07/2023 Dietary counseling and surveillance (ICD-10 - Z71.3) #Weight Management 08/07/2023 thriving Thyroid function is very inconsistent and sporadic at the moment which can alter and hinder weight loss 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 Consider using apps like [employer], [employer], lose it, stick as needed for self-monitoring and weight management. Consider group exercises. Consider hiring a personal banker. Regular exercise is carvalho to sustainable health [...] counseling and psychiatry and Dr Andres at [facility]. We would like to cover regular topics [...] software and direct typing Please excuse inadvertent senior safety management consultant or typing errors, or uncorrected word substitutions Although every attempt has been made by the provider to proofread this document, occasional misspellings and typographical errors may still be present Due to the previous pandemic, and the use of personal protective equipment (PPE) This may decrease voice recognition accuracy Inadvertent senior safety management consultant errors may occur 06/25/2023 Type 2 diabetes [...] minimum of 6 months The most recent [place] [employer] of clinical endocrinologists and [place] [employer] of endocrinology guidelines recommend patients who [...] track activity level. Consider using apps like [employer], [employer], lose it, stick as needed for self-monitoring and weight management. Consider group exercises. Consider hiring a personal banker. Regular exercise is carvalho to sustainable health [...] counseling and psychiatry and Dr Andres at [facility]. We would like to cover regular topics [...] software and direct typing Please excuse inadvertent senior safety management consultant or typing errors, or uncorrected word substitutions Although every attempt has been made by the provider to proofread this document, occasional misspellings and typographical errors may still be present Due to the previous pandemic, and the use of personal protective equipment (PPE) This may decrease voice recognition accuracy Inadvertent senior safety management consultant errors may occur 05/08/2023 BMI 50.0-59.9, adult [...] minimum of 6 months The most recent [place] [employer] of clinical endocrinologists and [place] [employer] endocrinology guidelines recommend patients who [...] track activity level. Consider using apps like [employer], [employer], lose it, stick as needed for self-monitoring and weight management. Consider group exercises. Consider hiring a personal banker. Regular exercise is carvalho to sustainable health [...] counseling and psychiatry and Dr Andres at [facility]. We would like to cover regular topics [...] software and direct typing Please excuse inadvertent senior safety management consultant or typing errors, or uncorrected word substitutions Although every attempt has been made by the provider to proofread this document, occasional misspellings and typographical errors may still be present Due to the previous pandemic, and the use of personal protective equipment (PPE) This may decrease voice recognition accuracy Inadvertent senior safety management consultant errors may occur 03/17/2024 BMI 45.0-49.9, adult (ICD-10 - Z68.42) #Weight Management 03/17/2024 She continues to follow with endocrinology and her PCP to follow her thyroid levels closely as she is on methimazole She is also working with orthopedic surgery, she is getting injections in her knee They are holding off on surgery until last resort Her PCP will be retiring in July therefore we switching to us for primary care services She will continue current 15 mg dosing Total time spent today was 30 minutes of which greater than 50% was spent on coordinating and counseling Patient has been found to be obese with a BMI of (48). Patient has class (3) obesity. We are a board certified obesity and weight management practice Patient has trialed behavioral modification, dietary restrictions and exercise for a minimum of 6 months The most recent [place] [employer] of clinical endocrinologists and [place] [employer] end[employer]in[employer] guidelines recommend patients who [...] software and direct typing Please excuse inadvertent senior safety management consultant or typing errors, or uncorrected word substitutions Although every attempt has been made by the provider to proofread this document, occasional misspellings and typographical errors may still be present Due to the previous pandemic, and the use of personal protective equipment (PPE) This may decrease voice recognition accuracy Inadvertent senior safety management consultant errors may occur 05/08/2023 Graves disease (ICD-10 [...] minimum of 6 months The most recent [place] [employer] of clinical endocrinologists and [place] [employer] end[employer]in[employer] guidelines recommend patients who [...] track activity level. Consider using apps like [employer], myfitnesspal, lose it, stick as needed for self-monitoring and weight management. Consider group exercises. Consider hiring a personal banker. Regular exercise is carvalho to sustainable health [...] counseling and psychiatry and Dr Andres at [facility]. We would like to cover regular topics [...] software and direct typing Please excuse inadvertent senior safety management consultant or typing errors, or uncorrected word substitutions Although every attempt has been made by the provider to proofread this document, occasional misspellings and typographical errors may still be present Due to the previous pandemic, and the use of personal protective equipment (PPE) This may decrease voice recognition accuracy Inadvertent senior safety management consultant errors may occur 06/25/2023 Chronic anticoagulation (ICD-10 [...] minimum of 6 months The most recent [place] [employer] of clinical endocrinologists and [place] [employer] end[employer]in[employer] guidelines recommend patients who [...] track activity level. Consider using apps like [employer], [employer], lose it, stick as needed for self-monitoring and weight management. Consider group exercises. Consider hiring a personal banker. Regular exercise is carvalho to sustainable health [...] counseling and psychiatry and Dr And[facility] at [facility]. We would like to cover regular topics [...] software and direct typing Please excuse inadvertent senior safety management consultant or typing errors, or uncorrected word substitutions Although every attempt has been made by the provider to proofread this document, occasional misspellings and typographical errors may still be present Due to the previous pandemic, and the use of personal protective equipment (PPE) This may decrease voice recognition accuracy Inadvertent senior safety management consultant errors may occur 10/16/2023 Dietary counseling and surveillance (ICD-10 - Z71.3) #Weight Management 10/16/2023 Labs reviewed from [facility] September 2023 thriving Given ongoing weight loss this may be a recurrent problem until her weight stabilizes 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 Consider using apps like [employer], Refinery29pal, lose it, stick as needed for self-monitoring and weight management. Consider group exercises. Consider hiring a personal banker. Regular exercise is carvalho to sustainable health [...] counseling and psychiatry and Dr Andres at [facility]. We would like to cover regular topics [...] software and direct typing Please excuse inadvertent senior safety management consultant or typing errors, or uncorrected word substitutions Although every attempt has been made by the provider to proofread this document, occasional misspellings and typographical errors may still be present Due to the previous pandemic, and the use of personal protective equipment (PPE) This may decrease voice recognition accuracy Inadvertent senior safety management consultant errors may occur 08/07/2023 Type 2 diabetes mellitus without complication, without long-term current use of insulin (ICD-10 - E11.9) #Weight Management 08/07/2023 thriving Thyroid function is very inconsistent and sporadic at the moment which can alter and hinder weight loss 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 Consider using apps like [employer], Refinery[employer]pal, lose it, stick as needed for self-monitoring and weight management. Consider group exercises. Consider hiring a personal banker. Regular exercise is carvalho to sustainable health [...] counseling and psychiatry and Dr And[facility] at [facility]. We would like to cover regular topics [...] software and direct typing Please excuse inadvertent senior safety management consultant or typing errors, or uncorrected word substitutions Although every attempt has been made by the provider to proofread this document, occasional misspellings and typographical errors may still be present Due to the previous pandemic, and the use of personal protective equipment (PPE) This may decrease voice recognition accuracy Inadvertent senior safety management consultant errors may occur 12/18/2023 Dietary counseling and surveillance (ICD-10 - Z71.3) #Weight Management 12/18/2023 Labs reviewed from [facility] September 2023 thriving Given ongoing weight loss this may be a recurrent problem until her weight stabilizes 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 and rechecking labs every 4 weeks or [...] minimum of 6 months The most recent [place] [employer] endocrinologists and [place] [employer] guidelines recommend patients who [...] software and direct typing Please excuse inadvertent senior safety management consultant or typing errors, or uncorrected word substitutions Although every attempt has been made by the provider to proofread this document, occasional misspellings and typographical errors may still be present Due to the previous pandemic, and the use of personal protective equipment (PPE) This may decrease voice recognition accuracy Inadvertent senior safety management consultant errors may occur 03/17/2024 Dietary counseling and surveillance (ICD-10 - Z71.3) #Weight Management 03/17/2024 She continues to follow with endocrinology and her PCP to follow her thyroid levels closely as she is on methimazole She is also working with orthopedic surgery, she is getting injections in her knee They are holding off on surgery until last resort Her PCP will be retiring in July therefore we switching to us for primary care services She will continue current 15 mg dosing Total time spent today was 30 minutes of which greater than 50% was spent on coordinating and counseling Patient has been found to be obese with a BMI of (48). Patient has class (3) obesity. We are a board certified obesity and weight management practice Patient has trialed behavioral modification, dietary restrictions and exercise for a minimum of 6 months The most recent [place] [employer]ocrinologists and [place] [employer] guidelines recommend patients who [...] software and direct typing Please excuse inadvertent senior safety management consultant or typing errors, or uncorrected word substitutions Although every attempt has been made by the provider to proofread this document, occasional misspellings and typographical errors may still be present Due to the previous pandemic, and the use of personal protective equipment (PPE) This may decrease voice recognition accuracy Inadvertent senior safety management consultant errors may occur 12/18/2023 Type 2 diabetes mellitus without complication, without long-term current use of insulin (ICD-10 - E11.9) #Weight Management 12/18/2023 Labs reviewed from [facility] September 2023 thriving Given ongoing weight loss this may be a recurrent problem until her weight stabilizes 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 and rechecking labs every 4 weeks or [...] minimum of 6 months The most recent [place] [employer] endocrinologists and [place] [employer] guidelines recommend patients who [...] software and direct typing Please excuse inadvertent senior safety management consultant or typing errors, or uncorrected word substitutions Although every attempt has been made by the provider to proofread this document, occasional misspellings and typographical errors may still be present Due to the previous pandemic, and the use of personal protective equipment (PPE) This may decrease voice recognition accuracy Inadvertent senior safety management consultant errors may occur 03/17/2024 Type 2 diabetes mellitus without complication, without long-term current use of insulin (ICD-10 - E11.9) #Weight Management 03/17/2024 She continues to follow with endocrinology and her PCP to follow her thyroid levels closely as she is on methimazole She is also working with orthopedic surgery, she is getting injections in her knee They are holding off on surgery until last resort Her PCP will be retiring in July therefore we switching to us for primary care services She will continue current 15 mg dosing Total time spent today was 30 minutes of which greater than 50% was spent on coordinating and counseling Patient has been found to be obese with a BMI of (48). Patient has class (3) obesity. We are a board certified obesity and weight management practice Patient has trialed behavioral modification, dietary restrictions and exercise for a minimum of 6 months The most recent [place] [employer] endocrinologists and [place] [employer] guidelines recommend patients who [...] software and direct typing Please excuse inadvertent senior safety management consultant or typing errors, or uncorrected word substitutions Although every attempt has been made by the provider to proofread this document, occasional misspellings and typographical errors may still be present Due to the previous pandemic, and the use of personal protective equipment (PPE) This may decrease voice recognition accuracy Inadvertent senior safety management consultant errors may occur 10/16/2023 Type 2 diabetes mellitus without complication, without long-term current use of insulin (ICD-10 - E11.9) #Weight Management 10/16/2023 Labs reviewed from [facility] September 2023 thriving Given ongoing weight loss this may be a recurrent problem until her weight stabilizes 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 Consider using apps like [employer], myfitnesspal, lose it, stick as needed for self-monitoring and weight management. Consider group exercises. Consider hiring a personal banker. Regular exercise is carvalho to sustainable health [...] counseling and psychiatry and Dr Andres at [facility]. We would like to cover regular topics [...] software and direct typing Please excuse inadvertent senior safety management consultant or typing errors, or uncorrected word substitutions Although every attempt has been made by the provider to proofread this document, occasional misspellings and typographical errors may still be present Due to the previous pandemic, and the use of personal protective equipment (PPE) This may decrease voice recognition accuracy Inadvertent senior safety management consultant errors may occur 08/07/2023 Graves disease (ICD-10 - E05.00) #Weight Management 08/07/2023 thriving Thyroid function is very inconsistent and sporadic at the moment which can alter and hinder weight loss 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 Consider using apps like [employer] m[employer]ute ex[employer]ol[employer]lyise, Refinery29pal, lose it, stick as needed for self-monitoring and weight management. Consider group exercises. Consider hiring a personal banker. Regular exercise is carvalho to sustainable health [...] counseling and psychiatry and Dr Andres at [facility]. We would like to cover regular topics [...] software and direct typing Please excuse inadvertent senior safety management consultant or typing errors, or uncorrected word substitutions Although every attempt has been made by the provider to proofread this document, occasional misspellings and typographical errors may still be present Due to the previous pandemic, and the use of personal protective equipment (PPE) This may decrease voice recognition accuracy Inadvertent senior safety management consultant errors may occur 06/25/2023 PAF (paroxysmal atrial [...] minimum of 6 months The most recent [place] [employer] endocrinologists and [place] [employer] end[employer]in[employer] guidelines recommend patients who [...] track activity level. Consider using apps like [employer], myfitnesspal, lose it, stick as needed for self-monitoring and weight management. Consider group exercises. Consider hiring a personal banker. Regular exercise is carvalho to sustainable health [...] counseling and psychiatry and Dr Andres at [facility]. We would like to cover regular topics [...] software and direct typing Please excuse inadvertent senior safety management consultant or typing errors, or uncorrected word substitutions Although every attempt has been made by the provider to proofread this document, occasional misspellings and typographical errors may still be present Due to the previous pandemic, and the use of personal protective equipment (PPE) This may decrease voice recognition accuracy Inadvertent senior safety management consultant errors may occur 05/08/2023 Type 2 diabetes [...] minimum of 6 months The most recent [place] [employer] endocrinologists and [place] [employer]in[employer] guidelines recommend patients who [...] track activity level. Consider using apps like [employer], [employer], lose it, stick as needed for self-monitoring and weight management. Consider group exercises. Consider hiring a personal banker. Regular exercise is carvalho to sustainable health [...] counseling and psychiatry and Dr Andres at [facility]. We would like to cover regular topics [...] software and direct typing Please excuse inadvertent senior safety management consultant or typing errors, or uncorrected word substitutions Although every attempt has been made by the provider to proofread this document, occasional misspellings and typographical errors may still be present Due to the previous pandemic, and the use of personal protective equipment (PPE) This may decrease voice recognition accuracy Inadvertent senior safety management consultant errors may occur 05/08/2023 Chronic anticoagulation (ICD-10 [...] minimum of 6 months The most recent [place] [employer] endocrinologists and [place] [employer] guidelines recommend patients who [...] track activity level. Consider using apps like [employer], [employer], lose it, stick as needed for self-monitoring and weight management. Consider group exercises. Consider hiring a personal banker. Regular exercise is carvalho to sustainable health [...] counseling and psychiatry and Dr Andres at [facility]. We would like to cover regular topics [...] software and direct typing Please excuse inadvertent senior safety management consultant or typing errors, or uncorrected word substitutions Although every attempt has been made by the provider to proofread this document, occasional misspellings and typographical errors may still be present Due to the previous pandemic, and the use of personal protective equipment (PPE) This may decrease voice recognition accuracy Inadvertent senior safety management consultant errors may occur 06/25/2023 NICHOLE (obstructive sleep [...] minimum of 6 months The most recent [place] [employer] clinical endocrinologists and [place] [employer] end[employer]in[employer] guidelines recommend patients who [...] track activity level. Consider using apps like [employer], [employer], lose it, stick as needed for self-monitoring and weight management. Consider group exercises. Consider hiring a personal banker. Regular exercise is carvalho to sustainable health [...] counseling and psychiatry and Dr Andres at [facility]. We would like to cover regular topics [...] software and direct typing Please excuse inadvertent senior safety management consultant or typing errors, or uncorrected word substitutions Although every attempt has been made by the provider to proofread this document, occasional misspellings and typographical errors may still be present Due to the previous pandemic, and the use of personal protective equipment (PPE) This may decrease voice recognition accuracy Inadvertent senior safety management consultant errors may occur 08/07/2023 Chronic anticoagulation (ICD-10 - Z79.01) #Weight Management 08/07/2023 thriving Thyroid function is very inconsistent and sporadic at the moment which can alter and hinder weight loss 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 Consider using apps like [employer], E[employer]fitnesspal, lose it, stick as needed for self-monitoring and weight management. Consider group exercises. Consider hiring a personal banker. Regular exercise is carvalho to sustainable health [...] counseling and psychiatry and Dr Andres at [facility]. We would like to cover regular topics [...] software and direct typing Please excuse inadvertent senior safety management consultant or typing errors, or uncorrected word substitutions Although every attempt has been made by the provider to proofread this document, occasional misspellings and typographical errors may still be present Due to the previous pandemic, and the use of personal protective equipment (PPE) This may decrease voice recognition accuracy Inadvertent senior safety management consultant errors may occur 10/16/2023 Graves disease (ICD-10 - E05.00) #Weight Management 10/16/2023 Labs reviewed from [facility] September 2023 thriving Given ongoing weight loss this may be a recurrent problem until her weight stabilizes 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 Consider using apps like [employer], myfitnesspal, lose it, stick as needed for self-monitoring and weight management. Consider group exercises. Consider hiring a personal banker. Regular exercise is carvalho to sustainable health [...] counseling and psychiatry and Dr Andres at [facility]. We would like to cover regular topics [...] software and direct typing Please excuse inadvertent senior safety management consultant or typing errors, or uncorrected word substitutions Although every attempt has been made by the provider to proofread this document, occasional misspellings and typographical errors may still be present Due to the previous pandemic, and the use of personal protective equipment (PPE) This may decrease voice recognition accuracy Inadvertent senior safety management consultant errors may occur 03/17/2024 Graves disease (ICD-10 - E05.00) #Weight Management 03/17/2024 She continues to follow with endocrinology and her PCP to follow her thyroid levels closely as she is on methimazole She is also working with orthopedic surgery, she is getting injections in her knee They are holding off on surgery until last resort Her PCP will be retiring in July therefore we switching to us for primary care services She will continue current 15 mg dosing Total time spent today was 30 minutes of which greater than 50% was spent on coordinating and counseling Patient has been found to be obese with a BMI of (48). Patient has class (3) obesity. We are a board certified obesity and weight management practice Patient has trialed behavioral modification, dietary restrictions and exercise for a minimum of 6 months The most recent [place] [employer] endocrinologists and [place] [employer]in[employer] guidelines recommend patients who [...] software and direct typing Please excuse inadvertent senior safety management consultant or typing errors, or uncorrected word substitutions Although every attempt has been made by the provider to proofread this document, occasional misspellings and typographical errors may still be present Due to the previous pandemic, and the use of personal protective equipment (PPE) This may decrease voice recognition accuracy Inadvertent senior safety management consultant errors may occur 12/18/2023 Graves disease (ICD-10 - E05.00) #Weight Management 12/18/2023 Labs reviewed from [facility] September 2023 thriving Given ongoing weight loss this may be a recurrent problem until her weight stabilizes 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 and rechecking labs every 4 weeks or [...] minimum of 6 months The most recent [place] [employer] endocrinologists and [place] [employer] guidelines recommend patients who [...] software and direct typing Please excuse inadvertent senior safety management consultant or typing errors, or uncorrected word substitutions Although every attempt has been made by the provider to proofread this document, occasional misspellings and typographical errors may still be present Due to the previous pandemic, and the use of personal protective equipment (PPE) This may decrease voice recognition accuracy Inadvertent senior safety management consultant errors may occur 12/18/2023 Chronic anticoagulation (ICD-10 - Z79.01) #Weight Management 12/18/2023 Labs reviewed from [facility] September 2023 thriving Given ongoing weight loss this may be a recurrent problem until her weight stabilizes 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 and rechecking labs every 4 weeks or [...] minimum of 6 months The most recent [place] [employer] endocrinologists and [place] [employer] guidelines recommend patients who [...] software and direct typing Please excuse inadvertent senior safety management consultant or typing errors, or uncorrected word substitutions Although every attempt has been made by the provider to proofread this document, occasional misspellings and typographical errors may still be present Due to the previous pandemic, and the use of personal protective equipment (PPE) This may decrease voice recognition accuracy Inadvertent senior safety management consultant errors may occur 10/16/2023 Chronic anticoagulation (ICD-10 - Z79.01) #Weight Management 10/16/2023 Labs reviewed from [facility] September 2023 thriving Given ongoing weight loss this may be a recurrent problem until her weight stabilizes 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 Consider using apps like [employer], [employer], lose it, stick as needed for self-monitoring and weight management. Consider group exercises. Consider hiring a personal banker. Regular exercise is carvalho to sustainable health [...] counseling and psychiatry and Dr Andres at [facility] [employer]. We would like to cover regular topics [...] software and direct typing Please excuse inadvertent senior safety management consultant or typing errors, or uncorrected word substitutions Although every attempt has been made by the provider to proofread this document, occasional misspellings and typographical errors may still be present Due to the previous pandemic, and the use of personal protective equipment (PPE) This may decrease voice recognition accuracy Inadvertent senior safety management consultant errors may occur 08/07/2023 PAF (paroxysmal atrial fibrillation) (ICD-10 - I48.0) #Weight Management 08/07/2023 thriving Thyroid function is very inconsistent and sporadic at the moment which can alter and hinder weight loss 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 Consider using apps like [employer], myfitnesspal, lose it, stick as needed for self-monitoring and weight management. Consider group exercises. Consider hiring a personal banker. Regular exercise is carvalho to sustainable health [...] counseling and psychiatry and Dr Andres at [facility] [employer]. We would like to cover regular topics [...] software and direct typing Please excuse inadvertent senior safety management consultant or typing errors, or uncorrected word substitutions Although every attempt has been made by the provider to proofread this document, occasional misspellings and typographical errors may still be present Due to the previous pandemic, and the use of personal protective equipment (PPE) This may decrease voice recognition accuracy Inadvertent senior safety management consultant errors may occur 06/25/2023 BMI 45.0-49.9, adult [...] minimum of 6 months The most recent [place] [employer] and [place] [employer] guidelines recommend patients who [...] track activity level. Consider using apps like [employer], [employer], lose it, stick as needed for self-monitoring and weight management. Consider group exercises. Consider hiring a personal banker. Regular exercise is carvalho to sustainable health [...] counseling and psychiatry and Dr Andres at [facility]. We would like to cover regular topics [...] software and direct typing Please excuse inadvertent senior safety management consultant or typing errors, or uncorrected word substitutions Although every attempt has been made by the provider to proofread this document, occasional misspellings and typographical errors may still be present Due to the previous pandemic, and the use of personal protective equipment (PPE) This may decrease voice recognition accuracy Inadvertent senior safety management consultant errors may occur 05/08/2023 PAF (paroxysmal atrial [...] minimum of 6 months The most recent [place] [employer] and [place] [employer] guidelines recommend patients who [...] track activity level. Consider using apps like [employer], [employer], lose it, stick as needed for self-monitoring and weight management. Consider group exercises. Consider hiring a personal banker. Regular exercise is carvalho to sustainable health [...] counseling and psychiatry and Dr Andres at [facility]. We would like to cover regular topics [...] software and direct typing Please excuse inadvertent senior safety management consultant or typing errors, or uncorrected word substitutions Although every attempt has been made by the provider to proofread this document, occasional misspellings and typographical errors may still be present Due to the previous pandemic, and the use of personal protective equipment (PPE) This may decrease voice recognition accuracy Inadvertent senior safety management consultant errors may occur 03/17/2024 Chronic anticoagulation (ICD-10 - Z79.01) #Weight Management 03/17/2024 She continues to follow with endocrinology and her PCP to follow her thyroid levels closely as she is on methimazole She is also working with orthopedic surgery, she is getting injections in her knee They are holding off on surgery until last resort Her PCP will be retiring in July therefore we switching to us for primary care services She will continue current 15 mg dosing Total time spent today was 30 minutes of which greater than 50% was spent on coordinating and counseling Patient has been found to be obese with a BMI of (48). Patient has class (3) obesity. We are a board certified obesity and weight management practice Patient has trialed behavioral modification, dietary restrictions and exercise for a minimum of 6 months The most recent [place] [employer]in[employer] and [place] [employer] guidelines recommend patients who [...] software and direct typing Please excuse inadvertent senior safety management consultant or typing errors, or uncorrected word substitutions Although every attempt has been made by the provider to proofread this document, occasional misspellings and typographical errors may still be present Due to the previous pandemic, and the use of personal protective equipment (PPE) This may decrease voice recognition accuracy Inadvertent senior safety management consultant errors may occur 05/08/2023 NICHOLE (obstructive sleep [...] minimum of 6 months The most recent [place] [employer]in[employer] and [place] [employer] guidelines recommend patients who [...] track activity level. Consider using apps like [employer], myfitnesspal, lose it, stick as needed for self-monitoring and weight management. Consider group exercises. Consider hiring a personal banker. Regular exercise is carvalho to sustainable health [...] counseling and psychiatry and Dr Andres at [facility]. We would like to cover regular topics [...] software and direct typing Please excuse inadvertent senior safety management consultant or typing errors, or uncorrected word substitutions Although every attempt has been made by the provider to proofread this document, occasional misspellings and typographical errors may still be present Due to the previous pandemic, and the use of personal protective equipment (PPE) This may decrease voice recognition accuracy Inadvertent senior safety management consultant errors may occur 08/07/2023 NICHOLE (obstructive sleep apnea) (ICD-10 - G47.33) #Weight Management 08/07/2023 thriving Thyroid function is very inconsistent and sporadic at the moment which can alter and hinder weight loss 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 Consider using apps like [employer], [employer], lose it, stick as needed for self-monitoring and weight management. Consider group exercises. Consider hiring a personal banker. Regular exercise is carvalho to sustainable health [...] counseling and psychiatry and Dr Andres at [facility]. We would like to cover regular topics [...] software and direct typing Please excuse inadvertent senior safety management consultant or typing errors, or uncorrected word substitutions Although every attempt has been made by the provider to proofread this document, occasional misspellings and typographical errors may still be present Due to the previous pandemic, and the use of personal protective equipment (PPE) This may decrease voice recognition accuracy Inadvertent senior safety management consultant errors may occur 10/16/2023 PAF (paroxysmal atrial fibrillation) (ICD-10 - I48.0) #Weight Management 10/16/2023 Labs reviewed from [facility] September 2023 thriving Given ongoing weight loss this may be a recurrent problem until her weight stabilizes 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 Consider using apps like [employer], [employer], lose it, stick as needed for self-monitoring and weight management. Consider group exercises. Consider hiring a personal banker. Regular exercise is carvalho to sustainable health [...] counseling and psychiatry and Dr Andres at [facility]. We would like to cover regular topics [...] software and direct typing Please excuse inadvertent senior safety management consultant or typing errors, or uncorrected word substitutions Although every attempt has been made by the provider to proofread this document, occasional misspellings and typographical errors may still be present Due to the previous pandemic, and the use of personal protective equipment (PPE) This may decrease voice recognition accuracy Inadvertent senior safety management consultant errors may occur 12/18/2023 PAF (paroxysmal atrial fibrillation) (ICD-10 - I48.0) #Weight Management 12/18/2023 Labs reviewed from [facility] September 2023 thriving Given ongoing weight loss this may be a recurrent problem until her weight stabilizes 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 and rechecking labs every 4 weeks or [...] minimum of 6 months The most recent [place] [employer]ocrinologists and [place] [employer] guidelines recommend patients who [...] software and direct typing Please excuse inadvertent senior safety management consultant or typing errors, or uncorrected word substitutions Although every attempt has been made by the provider to proofread this document, occasional misspellings and typographical errors may still be present Due to the previous pandemic, and the use of personal protective equipment (PPE) This may decrease voice recognition accuracy Inadvertent senior safety management consultant errors may occur 03/17/2024 PAF (paroxysmal atrial fibrillation) (ICD-10 - I48.0) #Weight Management 03/17/2024 She continues to follow with endocrinology and her PCP to follow her thyroid levels closely as she is on methimazole She is also working with orthopedic surgery, she is getting injections in her knee They are holding off on surgery until last resort Her PCP will be retiring in July therefore we switching to us for primary care services She will continue current 15 mg dosing Total time spent today was 30 minutes of which greater than 50% was spent on coordinating and counseling Patient has been found to be obese with a BMI of (48). Patient has class (3) obesity. We are a board certified obesity and weight management practice Patient has trialed behavioral modification, dietary restrictions and exercise for a minimum of 6 months The most recent [place] [employer]ocrin[employer] and [place] [employer] guidelines recommend patients who [...] software and direct typing Please excuse inadvertent senior safety management consultant or typing errors, or uncorrected word substitutions Although every attempt has been made by the provider to proofread this document, occasional misspellings and typographical errors may still be present Due to the previous pandemic, and the use of personal protective equipment (PPE) This may decrease voice recognition accuracy Inadvertent senior safety management consultant errors may occur 03/17/2024 NICHOLE (obstructive sleep apnea) (ICD-10 - G47.33) #Weight Management 03/17/2024 She continues to follow with endocrinology and her PCP to follow her thyroid levels closely as she is on methimazole She is also working with orthopedic surgery, she is getting injections in her knee They are holding off on surgery until last resort Her PCP will be retiring in July therefore we switching to us for primary care services She will continue current 15 mg dosing Total time spent today was 30 minutes of which greater than 50% was spent on coordinating and counseling Patient has been found to be obese with a BMI of (48). Patient has class (3) obesity. We are a board certified obesity and weight management practice Patient has trialed behavioral modification, dietary restrictions and exercise for a minimum of 6 months The most recent [place] [employer]ocrinologists and [place] [employer] guidelines recommend patients who [...] software and direct typing Please excuse inadvertent senior safety management consultant or typing errors, or uncorrected word substitutions Although every attempt has been made by the provider to proofread this document, occasional misspellings and typographical errors may still be present Due to the previous pandemic, and the use of personal protective equipment (PPE) This may decrease voice recognition accuracy Inadvertent senior safety management consultant errors may occur 12/18/2023 NICHOLE (obstructive sleep apnea) (ICD-10 - G47.33) #Weight Management 12/18/2023 Labs reviewed from [facility] September 2023 thriving Given ongoing weight loss this may be a recurrent problem until her weight stabilizes 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 and rechecking labs every 4 weeks or [...] minimum of 6 months The most recent [place] [employer]ocrinologists and [place] [employer] guidelines recommend patients who [...] software and direct typing Please excuse inadvertent senior safety management consultant or typing errors, or uncorrected word substitutions Although every attempt has been made by the provider to proofread this document, occasional misspellings and typographical errors may still be present Due to the previous pandemic, and the use of personal protective equipment (PPE) This may decrease voice recognition accuracy Inadvertent senior safety management consultant errors may occur 10/16/2023 NICHOLE (obstructive sleep apnea) (ICD-10 - G47.33) #Weight Management 10/16/2023 Labs reviewed from [facility] September 2023 thriving Given ongoing weight loss this may be a recurrent problem until her weight stabilizes 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 Consider using apps like [employer], myfitnesspal, lose it, stick as needed for self-monitoring and weight management. Consider group exercises. Consider hiring a personal banker. Regular exercise is carvalho to sustainable health [...] counseling and psychiatry and Dr Andres at [facility]. We would like to cover regular topics [...] software and direct typing Please excuse inadvertent senior safety management consultant or typing errors, or uncorrected word substitutions Although every attempt has been made by the provider to proofread this document, occasional misspellings and typographical errors may still be present Due to the previous pandemic, and the use of personal protective equipment (PPE) This may decrease voice recognition accuracy Inadvertent senior safety management consultant errors may occur PLAN OF TREATMENT Next Appt Details Provider Name:MADDIE REYES, 05/05/2024 09:00:00 AM, [address], [facility] [address], [place], [address], Provider Name:MADDIE REYES, 05/11/2024 01:45:00 PM, [address], [address], [place], [address], Insurance Providers Payer Name Payer Address Payer Phone Subscriber Number Group Number Insured Name Patient Relationship to Insured Coverage Start Date Coverage End Date [facility] [address] [place] [address] [phone] [id number] Corazon Cortez Self - patient is the insured MEDICAL (GENERAL) HISTORY Medical History History ICD Code diabetes mellitus graves disease afib gastroesophageal reflux disease (GERD) hyperlipidemia asthma sleep apnea
--- OUTSIDE RECORDS SUMMARY | 2024-04-21 12:18 | XMS_ITS ---
Author Organization [facility] Address [address] [place] [id number] Care Team Providers Care Special Education Professional Name Role Phone MADDIE REYES Unavailable [phone] ALLERGIES Allergen (clinical drug ingredient) Drug/Non Drug Allergy documented on EMR Reaction Allergy Type Onset Date Status ibuprofen Ibuprofen Blood thinner Drug Allergy Act indigo REASON FOR VISIT Pt seen in office for wt mgt f/u visit with ANASTASIA. MEDICATIONS Medication SIG (Take, Route, Frequency, Duration) Notes Start Date End Date Status Furosemide 20 MG Oral for 30 Days Active Flecainide Acetate 100 MG Oral for 90 Days Active Atorvastatin Calcium 10 MG Oral for 90 Days Active methIMAzole 5 MG 1 tablet Oral Once e very other day for 90 days Active Magnesium Oxide 400 MG Oral for 30 Days Active Contrave 8-90 MG Week 1, take 1 table t in the morning Week 2 take 1 tablet in the morning, 1 tablet in the evening Week 3 take 2 tablets in the morning, 1 tablet in the evening Week 4 onward 2 tablets in the morning, 2 tablets in the evening Orally twice a day for 30 days Active Vitamin B 12 500 MCG 1 tablet Orally Once a day Active Omeprazole 20 MG Oral for 30 Days Active Eliquis 5 MG Oral for 30 Days Active dilTIAZem HCl ER Coated Beads 240 MG Oral for 30 Days Active metFORMIN HCl ER 750 MG 1 tablet with ev ening meal Orally Once a day for 90 days Active Vitamin D (Cholecalciferol) 50 MCG (1999 UT) 1 capsule Orally Once a day Active Mounjaro 12.5 MG/0.5ML 12.5mg Subcutaneo us weekly for 30 days Active Mounjaro 15 MG/0.5ML 15mg Subcutaneous w rodgraham for 30 days 03/10/2023 Active Vitamin C Active SOCIAL HISTORY Tobacco Use: Social History Observation Description Date Details (start date - stop date) Never Smoker NA - NA Sex Assigned At : Social History Observation Description Sex Assigned At Unknown Tobacco Use/Smoking Question Answer Notes Are you a nonsmoker VITAL SIGNS Heart Rate 83 /min 03/17/2024 Blood pressure systolic 140 mm Hg 03/17/19 25 Blood pressure diastolic 84 mm Hg 025 Weight 302 lbs 03/17/2024 BMI 48.74 kg/m2 03/17/2024 Height 66 in 03/17/2024 Oximetry 96 % 03/17/2024 Encounters Encounter Location Date Provider Diagnosis [facility] [address] [facility] [address] [place] [address] 03/17/2024 MADDIE REYES Morbid obesity E66.0 1 ; BMI 45.0-49.9, adult Z68.42 ; Dietary counseling and surveillance Z71.3 ; Type 2 diabetes mellitus without complication, without long-term current use of insulin E11.9 ; Graves disease E05.00 ; Chronic anticoagulation Z79.01 ; PAF (paroxysmal atrial fibrillation) I48.0 and NICHOLE (obstructive sleep apnea) G47.33 ASSESSMENTS Encounter Date Diagnosis Assessment Notes Treatment Notes Treatment Clinical Notes Section Notes 03/17/2024 Morbid obesity (ICD-10 - E66.01) #Weight [...] minimum of 6 months The most recent [place] [employer]ocrinologists and [place] [employer] guidelines recommend patients who [...] software and direct typing Please excuse inadvertent tax audit manager or typing errors, or uncorrected word substitutions Although every attempt has been made by the provider to proofread this document, occasional misspellings and typographical errors may still be present Due to the previous pandemic, and the use of personal protective equipment (PPE) This may decrease voice recognition accuracy Inadvertent tax audit manager errors may occur 03/17/2024 BMI 45.0-49.9, adult [...] minimum of 6 months The most recent [place] [employer]ocrinologists and [place] [employer] guidelines recommend patients who [...] software and direct typing Please excuse inadvertent tax audit manager or typing errors, or uncorrected word substitutions Although every attempt has been made by the provider to proofread this document, occasional misspellings and typographical errors may still be present Due to the previous pandemic, and the use of personal protective equipment (PPE) This may decrease voice recognition accuracy Inadvertent tax audit manager errors may occur 03/17/2024 Dietary counseling and [...] minimum of 6 months The most recent [place] [employer] endocrinologists and [place] [employer] guidelines recommend patients who [...] software and direct typing Please excuse inadvertent tax audit manager or typing errors, or uncorrected word substitutions Although every attempt has been made by the provider to proofread this document, occasional misspellings and typographical errors may still be present Due to the previous pandemic, and the use of personal protective equipment (PPE) This may decrease voice recognition accuracy Inadvertent tax audit manager errors may occur 03/17/2024 Type 2 diabetes [...] minimum of 6 months The most recent [place] [employer] endocrinologists and [place] [employer] guidelines recommend patients who [...] software and direct typing Please excuse inadvertent tax audit manager or typing errors, or uncorrected word substitutions Although every attempt has been made by the provider to proofread this document, occasional misspellings and typographical errors may still be present Due to the previous pandemic, and the use of personal protective equipment (PPE) This may decrease voice recognition accuracy Inadvertent tax audit manager errors may occur 03/17/2024 Graves disease (ICD-10 [...] minimum of 6 months The most recent [place] [employer] endocrinologists and [place] [employer] guidelines recommend patients who [...] software and direct typing Please excuse inadvertent tax audit manager or typing errors, or uncorrected word substitutions Although every attempt has been made by the provider to proofread this document, occasional misspellings and typographical errors may still be present Due to the previous pandemic, and the use of personal protective equipment (PPE) This may decrease voice recognition accuracy Inadvertent tax audit manager errors may occur 03/17/2024 Chronic anticoagulation (ICD-10 [...] minimum of 6 months The most recent [place] [employer] endocrinologists and [place] [employer] guidelines recommend patients who [...] software and direct typing Please excuse inadvertent tax audit manager or typing errors, or uncorrected word substitutions Although every attempt has been made by the provider to proofread this document, occasional misspellings and typographical errors may still be present Due to the previous pandemic, and the use of personal protective equipment (PPE) This may decrease voice recognition accuracy Inadvertent tax audit manager errors may occur 03/17/2024 PAF (paroxysmal atrial [...] minimum of 6 months The most recent [place] [employer] clinical endocrinologists and [place] [employer] guidelines recommend patients who [...] software and direct typing Please excuse inadvertent tax audit manager or typing errors, or uncorrected word substitutions Although every attempt has been made by the provider to proofread this document, occasional misspellings and typographical errors may still be present Due to the previous pandemic, and the use of personal protective equipment (PPE) This may decrease voice recognition accuracy Inadvertent tax audit manager errors may occur 03/17/2024 NICHOLE (obstructive sleep [...] minimum of 6 months The most recent [place] [employer] clinical endocrinologists and [place] [employer] guidelines recommend patients who [...] software and direct typing Please excuse inadvertent tax audit manager or typing errors, or uncorrected word substitutions Although every attempt has been made by the provider to proofread this document, occasional misspellings and typographical errors may still be present Due to the previous pandemic, and the use of personal protective equipment (PPE) This may decrease voice recognition accuracy Inadvertent tax audit manager errors may occur PLAN OF TREATMENT Medication [...] Orally twice a day for 30 days metFORMIN HCl ER 750 MG 1 tablet with ev ening meal Orally Once a day for 90 days Mounjaro 12.5 MG/0.5ML 12.5mg Subcutaneo us weekly for 30 days Next Appt Details Provider Name:MADDIE AMY, 05/05/2024 09:00:00 AM, [address] [facility], [place] [address], [place], [address], Provider Name:MADDIE AMY, 05/11/2024 01:45:00 PM, [address] [facility], [facility] [address], [place], [address], Progress Notes * Lexi CORTEZOB: [birth year] (53 yo F)Acc No.[id number]:03/17/2024 Patient:??Corazon CORTEZ Provider:??MADDIE REYES NP :[id number]?Age:53 Y?Sex:Fe male Date:03/17/2024 Address:[address] [place], [place] [id number] Subjective: * Chief Complaints: * ?1. Pt seen in office f or wt mgt f/u visit with ANASTASIA.. * HPI: ?Constitutional:? Patient is here today for a weight management f/u visit ?Patient seen and examined. ?Full past medical history, social history, family history, ?allergies and current medications were reviewed and updated. ?Body composition analysis reviewed today ?#Weight Management ?03/17/2024 ?PCP Guanakito Tyler retiring 07/2024 ?will be switching to us for PCP services ?We discussed the new [place] NICHOLE trial and indication for tirzepatide ?Still on Mounjaro 15mg ? injection day Sundays. Contrave BID. No s/e. ?Appetite supressed. Has been stressful last couple months with personal things. ?hx of Graves Disease/Hyperthyrpidism ?She remains also on methimazole ? ENDO/Karoscani ?has done well on dual incretins ?Tolerating well. No SEs ?much increased appetite suppression ? A1C 5.5% Significant improvement in glycemic index ?Injection Day: Sundays ?Scheduled for right TKR, however, orthopedics want her BMI <45 ?so she now qualifies, wants her weight a bit lower ?cortisone is working intrarticular injections ?Currently not on an exercise regimen, ?Had Echo done. Her twin has a history of cardiomyopathy and sarcoid ?paroxysmal atrial flutter, ?on chronic anticoagulation ?Was scheduled for ablation in the near future with narrative writer JOSHUA, (Jose) ? 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 Tyler in [place] ?Comprehensive labs from [facility] ?September 2023 ?Renal function electrolytes and [...] meal Orally Once a day , Taking Contrave 8-90 MG Tablet Extended Release 12 Hour Week 1, take 1 tablet in the morning Week 2 take 1 tablet in the morning, 1 tablet in the evening Week 3 take 2 tablets in the morning, 1 tablet in the evening Week 4 onward 2 tablets in the morning, 2 tablets in the evening Orally twice a day , Taking Mounjaro 15 MG/0.5ML [...] Magnesium Oxide 400 MG Tablet Oral , Not-Taking Mounjaro 12.5 MG/0.5ML Solution Pen-injector 12.5mg Subcutaneous weekly , Medication List reviewed and reconciled with the patient * Allergies:??Ibuprofen: Blood thinner - Contraindication. Objective: * Vitals:??HR:83/min, BP:140/8 4mm Hg, Wt:302lbs, BMI:48.74Index, Ht: 66 in, Oxygen sat %:96%. * Examination: ?General Examination: ?GENERAL APPEARANCE:??in no [...] (obstructive sleep apnea) - G47.33?? #Weight Management 03/17/2024 She continues to follow [...] minimum of 6 months The most recent [place] [employer] clinical endocrinologists and [place] [employer] guidelines recommend patients who [...] software and direct typing Please excuse inadvertent tax audit manager or typing errors, or uncorrected word substitutions Although every attempt has been made by the provider to proofread this document, occasional misspellings and typographical errors may still be present Due to the previous pandemic, and the use of personal protective equipment (PPE) This may decrease voice recognition accuracy Inadvertent tax audit manager errors may occur. Plan: * Treatment: * Procedure Codes:??G0447 FCE- FCE BEHAVRL CNSL OBESITY 15 MIN, Modifiers: 59 * Images: Billing Information: * Visit Code:?? 90437 Office Visit, Est Pt., Level 4. * Procedure Codes:?? G0447 FCE-FCE BEHAVRL CNSL OBESITY 15 MIN. Modifiers: 59 * Sign off status: Completed true * Provider:??MADDIE REYES NP Date:??02/25 History and Physical Notes * HPI (History of Present Illness) Category Sub-Category Detail Notes Category Not es Constitutional Patient is here today for a weight management f/u visit Patient seen and examined. Full past medical history, social history, family history, allergies and current medications were reviewed and updated. Body composition analysis reviewed today #Weight Management 03/17/2024 PCP Guanakito Tyler retiring 07/2024 will be switching to us for PCP services We discussed the new [place] NICHOLE trial and indication for tirzepatide Still on Mounjaro 15mg injection day Sundays. Contrave BID. No s/e. Appetite supressed. Has been stressful last couple months with personal things. hx of Graves Disease/Hyperthyrpidism She remains also on methimazole ENDO/Karoscani has done well on dual incretins Tolerating well. No SEs much increased appetite suppression A1C 5.5% Significant improvement in glycemic index Injection Day: Sundays Scheduled for right TKR, however, orthopedics want her BMI <45 so she now qualifies, wants her weight a bit lower cortisone is working intrarticular injections Currently not on an exercise regimen, Had Echo done. Her twin has a history of cardiomyopathy and sarcoid paroxysmal atrial flutter, on chronic anticoagulation Was scheduled for ablation in the near future with narrative writer JOSHUA, (Jose) but is on hold until weight loss is stabilizes hx also of obstructive sleep apnea, diabetes, due for updated sleep study #Weight Management 03/17/2024 Weight 302lbs, BMI 47 12/18/2023, Weight 300, BMI 47 (+8lbs) 10/16/2023, Weight 292lbs , BMI 45.8 08/07/2023, Weight 292lbs, BMI 47 06/25/2023, Weight 294lbs ,BMI (-22lbs) 05/07/2023, Weight 316 lbs, BMI 49 03/10/2023, Weight 314, BMI 50.8 01/15/2023: Weight 315 lbs, BMI 50.8 12/06/2022: Weight 328 lbs, BMI 52.8 10/23/2022: Weight 348 lbs, BMI 56 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 Tyler in [place] Comprehensive labs from [facility] September 2023 Renal function electrolytes and LFTs are stable Estimated average glucose of 110 A1c 5.5 TSH 0.94 Total cholesterol 151, LDL 82, triglycerides 118, HDL 46 Has not had an echocardiogram recently. Examination Category Sub-Category Detail Notes Category Not es General Examination GENERAL APPEARANCE: in no ac [place] distress, well developed, well nourished HEAD: normocephalic, [...]
--- OUTSIDE RECORDS SUMMARY | 2024-04-21 12:18 | XMS_ITS ---
Author Organization [facility] Address [address] [place] [address] Care Team Providers Care Temperature Regulator Pyrometer Name Role Phone MADDIE REYES Unavailable [phone] ALLERGIES Allergen (clinical drug ingredient) Drug/Non Drug [...] 12/18/2023 Encounters Encounter Location Date Provider Diagnosis [facility] [address] [facility] [address] [place] [address] 12/18/2023 MADDIE BRISENOMihai Morbid obesity E66.0 1 [...] E66.01) #Weight Management 12/18/2023 Labs reviewed from [facility] September 2023 thriving Given ongoing weight loss this may be a recurrent problem until her weight stabilizes 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 test driver and rechecking labs every 4 weeks or [...] minimum of 6 months The most recent [place] [employer] of clinical endocrinologists and [place] [employer] endocrin[employer] guidelines recommend patients who [...] software and direct typing Please excuse inadvertent media marketing specialist or typing errors, or uncorrected word substitutions Although every attempt has been made by the provider to proofread this document, occasional misspellings and typographical errors may still be present Due to the previous pandemic, and the use of personal protective equipment (PPE) This may decrease voice recognition accuracy Inadvertent media marketing specialist errors may occur 12/18/2023 BMI 45.0-49.9, adult (ICD-10 - Z68.42) #Weight Management 12/18/2023 Labs reviewed from [facility] September 2023 thriving Given ongoing weight loss this may be a recurrent problem until her weight stabilizes 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 test driver and rechecking labs every 4 weeks or [...] minimum of 6 months The most recent [place] [employer] of clinical endocrinologists and [place] [employer]in[employer] guidelines recommend patients who [...] software and direct typing Please excuse inadvertent media marketing specialist or typing errors, or uncorrected word substitutions Although every attempt has been made by the provider to proofread this document, occasional misspellings and typographical errors may still be present Due to the previous pandemic, and the use of personal protective equipment (PPE) This may decrease voice recognition accuracy Inadvertent media marketing specialist errors may occur 12/18/2023 Dietary counseling and surveillance (ICD-10 - Z71.3) #Weight Management 12/18/2023 Labs reviewed from [facility] September 2023 thriving Given ongoing weight loss this may be a recurrent problem until her weight stabilizes 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 test driver and rechecking labs every 4 weeks or [...] minimum of 6 months The most recent [place] [employer] of clinical endocrinologists and [place] [employer]in[employer] guidelines recommend patients who [...] software and direct typing Please excuse inadvertent media marketing specialist or typing errors, or uncorrected word substitutions Although every attempt has been made by the provider to proofread this document, occasional misspellings and typographical errors may still be present Due to the previous pandemic, and the use of personal protective equipment (PPE) This may decrease voice recognition accuracy Inadvertent media marketing specialist errors may occur 12/18/2023 Type 2 diabetes mellitus without complication, without long-term current use of insulin (ICD-10 - E11.9) #Weight Management 12/18/2023 Labs reviewed from [facility] September 2023 thriving Given ongoing weight loss this may be a recurrent problem until her weight stabilizes 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 test driver and rechecking labs every 4 weeks or [...] minimum of 6 months The most recent [place] [employer] of clinical endocrinologists and [place] [employer] end[employer]in[employer] guidelines recommend patients who [...] software and direct typing Please excuse inadvertent media marketing specialist or typing errors, or uncorrected word substitutions Although every attempt has been made by the provider to proofread this document, occasional misspellings and typographical errors may still be present Due to the previous pandemic, and the use of personal protective equipment (PPE) This may decrease voice recognition accuracy Inadvertent media marketing specialist errors may occur 12/18/2023 Graves disease (ICD-10 - E05.00) #Weight Management 12/18/2023 Labs reviewed from [facility] September 2023 thriving Given ongoing weight loss this may be a recurrent problem until her weight stabilizes 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 test driver and rechecking labs every 4 weeks or [...] minimum of 6 months The most recent [place] [employer] of clinical endocrinologists and [place] [employer] endocrinology guidelines recommend patients who [...] software and direct typing Please excuse inadvertent media marketing specialist or typing errors, or uncorrected word substitutions Although every attempt has been made by the provider to proofread this document, occasional misspellings and typographical errors may still be present Due to the previous pandemic, and the use of personal protective equipment (PPE) This may decrease voice recognition accuracy Inadvertent media marketing specialist errors may occur 12/18/2023 Chronic anticoagulation (ICD-10 - Z79.01) #Weight Management 12/18/2023 Labs reviewed from [facility] September 2023 thriving Given ongoing weight loss this may be a recurrent problem until her weight stabilizes 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 test driver and rechecking labs every 4 weeks or [...] minimum of 6 months The most recent [place] [employer] of clinical endocrinologists and [place] [employer] endocrinology guidelines recommend patients who [...] software and direct typing Please excuse inadvertent media marketing specialist or typing errors, or uncorrected word substitutions Although every attempt has been made by the provider to proofread this document, occasional misspellings and typographical errors may still be present Due to the previous pandemic, and the use of personal protective equipment (PPE) This may decrease voice recognition accuracy Inadvertent media marketing specialist errors may occur 12/18/2023 PAF (paroxysmal atrial fibrillation) (ICD-10 - I48.0) #Weight Management 12/18/2023 Labs reviewed from [facility] September 2023 thriving Given ongoing weight loss this may be a recurrent problem until her weight stabilizes 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 test driver and rechecking labs every 4 weeks or [...] minimum of 6 months The most recent [place] [employer] of clinical endocrinologists and [place] [employer] endocrinology guidelines recommend patients who [...] software and direct typing Please excuse inadvertent media marketing specialist or typing errors, or uncorrected word substitutions Although every attempt has been made by the provider to proofread this document, occasional misspellings and typographical errors may still be present Due to the previous pandemic, and the use of personal protective equipment (PPE) This may decrease voice recognition accuracy Inadvertent media marketing specialist errors may occur 12/18/2023 NICHOLE (obstructive sleep apnea) (ICD-10 - G47.33) #Weight Management 12/18/2023 Labs reviewed from [facility] September 2023 thriving Given ongoing weight loss this may be a recurrent problem until her weight stabilizes 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 test driver and rechecking labs every 4 weeks or [...] minimum of 6 months The most recent [place] [employer] of clinical endocrinologists and [place] [employer] of endocrinology guidelines recommend patients who [...] software and direct typing Please excuse inadvertent media marketing specialist or typing errors, or uncorrected word substitutions Although every attempt has been made by the provider to proofread this document, occasional misspellings and typographical errors may still be present Due to the previous pandemic, and the use of personal protective equipment (PPE) This may decrease voice recognition accuracy Inadvertent media marketing specialist errors may occur PLAN OF TREATMENT Medication [...] days Next Appt Details Provider Name:MADDIE REYES, 05/05/2024 09:00:00 AM, [address] [facility], [place] [address], [place], [address], Provider Name:MADDIE REYES, 05/11/2024 01:45:00 PM, [address] [facility], [facility] [address], [place], [address], Progress Notes * Lexi CORTEZOB: [birth year] (53 yo F)Acc No.[id number]:12/18/2023 Patient:??Corazon CORTEZ Provider:??MADDIE REYES NP :1970?Age:53 Y?Sex:Fe male Date:12/18/2023 Address:[address] [place], [place] [id number] Subjective: * Chief Complaints: * ?1. Pt [...] here ?#Weight Management ?12/18/2023 ?Labs reviewed from [facility] September 2023 ?Still on Mounjaro 15mg, injection day Sundays. Contrave BID. No s/e. ?Appetite supressed. Has been stressful last couple months with personal things. ?TSH levels stable at this time, dose of Levothyroxine recently increased and ?will have f/u lab work in December for Integrity Assessor. She remains also on methimazole ?Having full [...] for ablation in the near future with canteen manager EP, ? 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 Tyler in [place] ?Comprehensive labs from [facility] ?September 2023 ?Renal function electrolytes and [...] G47.33?? #Weight Management 12/18/2023 Labs reviewed from [facility] September 2023 thriving Given ongoing weight loss this may be a recurrent problem until her weight stabilizes 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 test driver and rechecking labs every 4 weeks or [...] minimum of 6 months The most recent [place] [employer] of clinical endocrinologists and [place] [employer] of endocrinology guidelines recommend patients who [...] software and direct typing Please excuse inadvertent media marketing specialist or typing errors, or uncorrected word substitutions Although every attempt has been made by the provider to proofread this document, occasional misspellings and typographical errors may still be present Due to the previous pandemic, and the use of personal protective equipment (PPE) This may decrease voice recognition accuracy Inadvertent media marketing specialist errors may occur. Plan: * Treatment: * Procedure Codes:??G0447 FCE- FCE BEHAVRL CNSL OBESITY 15 MIN, Modifiers: 59 * Images: Billing Information: * Visit Code:?? 92749 Office Visit, Est Pt., Level 4. * [...] here #Weight Management 12/18/2023 Labs reviewed from [facility] September 2023 Still on Mounjaro 15mg, injection day Sundays. Contrave BID. No s/e. Appetite supressed. Has been stressful last couple months with personal things. TSH levels stable at this time, dose of Levothyroxine recently increased and will have f/u lab work in December for Integrity Assessor. She remains also on methimazole Having full [...] for ablation in the near future with canteen manager JOSHUA, but is on hold until weight loss is stabilizes She also has a history of Graves' disease, obstructive sleep apnea, diabetes, Patient referred to us from [facility] She is under the care of an test driver for both her diabetes as well as Graves' disease 12/18/2023, Weight 300, BMI 47 (+8lbs) 10/16/2023, Weight 292lbs , BMI 45.8 08/07/2023, Weight 292lbs, BMI 47 06/25/2023, Weight 294lbs ,BMI (-22lbs) 05/07/2023, Weight 316 lbs, BMI 49 03/10/2023, Weight 314, BMI 50.8 01/15/2023: Weight 315 lbs, BMI 50.8 12/06/2022: Weight 328 lbs, BMI 52.8 10/23/2022: Weight 348 lbs, BMI 56 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 Tyler in [place] Comprehensive labs from [facility] September 2023 Renal function electrolytes and LFTs are stable Estimated average glucose of 110 A1c 5.5 TSH 0.94 Total cholesterol 151, LDL 82, triglycerides 118, HDL 46 Has not had an echocardiogram recently. Examination Category Sub-Category Detail Notes Category Not es General Examination GENERAL APPEARANCE: in no ac julianna distress, well developed, well nourished HEAD: normocephalic, [...]
--- OUTSIDE RECORDS SUMMARY | 2024-04-21 12:18 | XMS_ITS ---
Author Organization [facility] Address [address] [facility] [place] [address] Care Team Providers Care Powdered Sugar Pulverizer Operator Name Role Phone Guanakito Tyler MD Primary Care Provider Lily Corral Unavailable [phone] Allergies Allergen (clinical drug ingredient) Drug/Non Drug [...] for 30 day(s) every other day Active Cardizem [...] Active Encounters Encounter Location Date Provider Diagnosis [facility] [address] [place] [address] 04/16/2024 Lily Toledo Plan Of Treatment Next Appt Details Provider Name:Lily freeman, 05/20/2024 03:30:00 PM, [address] [facility], [place], [address], Progress Notes * Lexi CORTEZOB: [birth year] (53 yo F)Acc No.[id number]:04/16/2024 Progress Note Patient:?Corazon CORTEZ Provider:?Lily Toledo DPM :1970???Age:53 Y???Sex:Female D ate:04/16/2024 Address:[address] [place], [place] [id number] Pcp:Guanakito Tyler MD Subjective: * Chief Complaints: * ???1. Dr Ma. * Medical History:?type II myesha betes, Asthma, Back,Hip,and Knee pain, Broken bones, Numbness, Sciatica, Chronic sinusitis, Thyroid, Chicken pox, Graves disease, A fib, Schambergs, Covid 19. * Medications:?Taking Contrave 8-90 MG Tablet Extended Release 12 [...] feet Twice a day , Not-Taking/PRN Clotrimazole-Betamethasone 1-0.05 % Cream 1 application [...] Externally to feet Twice a day * Allergies:?Advil: on blood t hinners, Aleve: on blood thinners, Motrin: on blood thinners. Objective: * Vitals:? Assessment: Plan: * Treatment: * Images: * The named appointment provid er may or may not be the originator of this progress note, and it is not deemed complete until electronically signed by the appointment provider. Sign off status: Pending * Provider:?Lily Toledo DPM Date:? Generated for Jeri hauser/Flores/Ralph on:?04/21/2024 12:17 PM EST
--- OUTSIDE RECORDS SUMMARY | 2024-04-21 12:18 | XMS_ITS ---
Author Organization [facility] Address [address] [place] [address] Care Team Providers Care Napkin Band Wrapper Name Role Phone FINNMihai MADDIE Unavailable [phone] REASON FOR VISIT new patient appt and FMLA Encounters Encounter Location Date Provider Diagnosis [facility] [address] [facility] [address] [place] [address] 04/19/2024 MADDIE REYES PLAN OF TREATMENT Next Appt Details Provider Name:MADDIE REYES, 05/05/2024 09:00:00 AM, [address], [address], [place], [address], Provider Name:MADDIE REYES, 05/11/2024 01:45:00 PM, [address], [address], [place], [address], Progress Notes * Lexi CORTEZOB: [birth year] (53 yo F)Acc No.[id number]:04/19/2024 Patient:??Corazon CORTEZ :1970?Age:53 Y?Sex:Fe male Address:[place] [address] * true * Date:??
--- OUTSIDE RECORDS SUMMARY | 2024-04-21 12:18 | XMS_ITS ---
Author Organization [facility] Address [address] [place] [address] Care Team Providers Care Car Ferry Captain Name Role Phone Guanakito Tyler MD Primary Care Provider Lily Corral [phone] Ma Encounters Encounter Location Date Provider Diagnosis [facility] [address] [place] [address] 04/09/2024 Lily Toledo Plan Of Treatment Next Appt Details Provider Name:Lily freeman, 05/20/2024 03:30:00 PM, [address] [place] [address], [address], Progress Notes * DIEGORanVladOB: [birth year] (53 yo F)Acc No.[id number]:04/09/2024 Progress Note Patient:?Corazon BRISENO Provider:?Lily Toledo DPM :1970???Age:53 Y???Sex:Female D ate:04/09/2024 Address: [id number] Pcp:Guanakito Tyler MD Subjective: * Chief Complaints: * ???1. Dr Ma. * Medical History:? Objective: * Vitals:? Assessment: Plan: * Treatment: * Images: * The named appointment provid er may or may not be the originator of this progress note, and it is not deemed complete until electronically signed by the appointment provider. Sign off status: Pending * Provider:?Lily Toledo DPM Date:? Generated for Jeri hauser/Flores/Ralph on:?04/21/2024 12:18 PM EST
--- OUTSIDE RECORDS SUMMARY | 2024-04-21 12:18 | XMS_ITS | Patient Health Record ---
Author Organization [facility] Address [address] [facility] [place] [address] Care Team Providers Care Realty Specialist Name Role Phone Guanakito Tyler MD Primary Care Provider Unavaila Lily Good Unavailable [phone] Allergies Allergen (clinical drug ingredient) Drug/Non Drug Allergy documented on EMR Reaction Allergy Type Onset Date Status ibuprofen Advil on blood thinners Drug Allergy Active Aleve on blood thinners Drug Allergy Active Motrin on blood thinners Drug Allergy Active Results Component Value Reference Range Notes HEMOGLOBIN A1C (GLYCOHEMOGLO BIN) Reviewed date:08/29/2023 09:18:07 [...] Notes Start Date End Date Status Vitamin B Complex - as directed Orally Active Ketoconazole 2 % 1 application Externally Twice a day for 30 days PRN 09/30/2022 Active Contrave 8-90 MG 1 tablet in the morning Orally Once a day Active methIMAzole 5 MG 1 tablet Orally Once a day for 30 day(s) every other day Active Ammonium Lactate 12 % 1 application to affected area Externally to feet Twice a day for 30 days Not-Taking Cardizem CD 240 MG 1 capsule Orally Once a day for 30 day(s) Active Januvia 100 MG 1 tablet Orally Once a day for 30 day(s) Not-Taking Eliquis 5 MG as directed Orally 1 tab AM/1 ta b PM Active glipiZIDE 5 MG 1 tablet 30 minutes before breakfast Orally Once a day for 30 day(s) 2 tablets AM/2 tablets PM Not-Taking Flecainide Acetate 100 MG as directed Orally 1 tab AM/1 tab PM Active Extra Depth Orthopedic Shoes (1 Pair) with Customized Heat Molded Multidensity Innersoles (3 Pair) as directed Dx: NIDDM/Polyneuropathy (E11.42), Hammertoe Foot Deformity (M20.41,M20.42), Preulcerative Skin Lesion(s) (L85.1 10/16/2021 Not-Taking Lipitor 10 MG 1 tablet Orally Once a day for 30 day(s) Active Extra Depth Orthopedic Shoes (1 Pair) with Customized Heat Molded Multidensity Innersoles (3 Pair) as directed Dx: NIDDM/Polyneuropathy (E11.42), Hammertoe Foot Deformity (M20.41,M20.42), Preulcerative Skin Lesion(s) (L85.1 09/20/2020 Not-Taking Vitamin D 25 MCG (1000 UT) 1 tablet Orally Once a day for 30 day(s) Active Clotrimazole-Betamet hasone 1-0.05 % 1 application to affected area Externally Twice a day to affected areas on feet for 30 days 05/10/2022 Not-Taking Ciclopirox Olamine 0.77 % 1 application to affected area Externally to feet Twice a day for 30 days Not-Taking Furosemide 20 MG 1 tablet Orally Once a day for 30 day(s) Active Vitamin C Active metFORMIN HCl 500 MG as directed Orally twice a day Not-Taking Mounjaro 15 MG/0.5ML as directed Subcutaneous Active Compression Stockings 20-30mm Hg 1 pair wear daily for 30 days Active Magnesium Active Extra Depth Orthopedic Shoes (1 Pair) with Customized Heat Molded Multidensity Innersoles (3 Pair) as directed Dx: NIDDM/Polyneuropathy (E11.42), Hammertoe Foot Deformity (M20.41,M20.42), Preulcerative Skin Lesion(s) (L85.1 Active Immunizations Vaccine Route Administration Date Status Comme [...] Problem Acquired hammer toe of right foot (635626420084 9105) Other hammer toe(s) (acquired), right foot (M20.41) Active confirmed Problem Acquired hammer toe of left foot (035961839087 9103) Other hammer toe(s) (acquired), left foot (M20.42) Active confirmed Problem [id number] Hammer toe of le ft foot (M20.42) Active confirmed Problem [id number] Type 2 diabetes mellitus with polyneuropathy (E11.42) Active confirmed Vital Signs Blood pressure diastolic 64 mm Hg 01/27/2024 Height 5ft6in in 01/27/2024 Blood pressure systolic 110 mm Hg 01/27/2024 Weight 303 lbs 01/27/2024 BMI 48.9 kg/m2 01/27/2024 Encounters Encounter Location Date Provider Diagnosis [address] [address] 06/27/2023 Lily Toledo Type 2 diabetes mellitus with polyneuropathy E11.42 and T[facility] pedis B[facility].[address] [facility] [address] 08/29/2023 Lily Toledo Type 2 diabetes mellitus with polyneuropathy E11.42 ; Tinea pedis B35.3 and Edema, lower extremity R60.[address] [address] 11/14/2023 Lily Toledo Type 2 diabetes mellitus with polyneuropathy E11.42 and Tinea pedis B35.[address] [address] 01/27/2024 Lily Toledo Type 2 diabetes mellitus with polyneuropathy E11.42 Assessments Encounter Date Diagnosis (ICD Code) Assessment Notes Treatment Notes Treatment Clinical Notes Section Notes 06/27/2023 Tinea pedis (ICD-10 - B35.3) 06/27/2023 Type 2 diabetes mellitus with polyneuropathy (ICD-10 - E11.42) 08/29/2023 Type 2 diabetes mellitus with polyneuropathy (ICD-10 - E11.42) 11/14/2023 Type 2 diabetes mellitus with polyneuropathy (ICD-10 - E11.42) 01/27/2024 Type 2 diabetes mellitus with polyneuropathy (ICD-10 - E11.42) 11/14/2023 Tinea pedis (ICD-10 - B35.3) 08/29/2023 Tinea pedis (ICD-10 - B35.3) 08/29/2023 Edema, lower extremity (ICD-10 - R60.0) 06/27/2023 Other Plan Of Treatment Next Appt Details Provider Name:Lily Freeman Maggie freeman, 05/20/2024 03:30:00 PM, [address] [place], [address], Insurance Providers Payer Name Payer Address Payer Phone Subscriber Number Group Number Insured Name Patient Relationship to Insured Coverage Start Date Coverage End Date [facility] [employer] [address] [place] [address] [phone] [id number] Corazon Cortez Self - patient is the insured Medical (General) History Medical History History ICD Code type II diabetes asthma Back,Hip,and Knee pain Broken bones Numbness Sciatica chronic sinusitis thyroid Chicken pox Graves disease A fib schambergs Covid 19 Surgical History Surgery Date(Month/Year) maik bladder Hernia Repair Cardioversion 09/2019 knee, meniscus sx left 11/30/2021
--- OUTSIDE RECORDS SUMMARY | 2024-04-21 12:19 | XMS_ITS ---
[facility] Organization [facility] Address [address] [place] [address] Care Team Providers Care Servicing Manager Name Role Phone Guanakito Tyler MD Primary Care Provider Lily Corral Unavailable [phone] Allergies Allergen (clinical drug ingredient) Drug/Non Drug [...] 024 Encounters Encounter Location Date Provider Diagnosis [facility] [address] [place] [address] 01/27/2024 Lily Toledo Type 2 diabetes mellitus with polyneuropathy E11.42 Assessments Encounter Date Diagnosis (ICD Code) Assessment Notes Treatment Notes Treatment Clinical Notes Section Notes 01/27/2024 Type 2 diabetes mellitus with polyneuropathy (ICD-10 - E11.42) Plan Of Treatment Next Appt Details Follow Up: 2 Months, Reason: Provider Name:Lily freeman, 05/20/2024 03:30:00 PM, [address] [facility], [place], [address], Procedure Notes * Category Sub-Category Detail Notes Keratoma Treatment Parring or Cutting o f Benign Hyperkeratotic Lesion(s) 65084 ( 2-4 Lesions ) - The Benign [...] bed tissue 6-10 (G0127) Progress Notes * SUZANNALexiOB: [birth year] (53 yo F)Acc No.[id number]:01/27/2024 Progress Note Patient:?Corazon CORTEZ Provider:?Lily Toledo DPM :1970???Age:53 Y???Sex:Female D ate:01/27/2024 [facility]: [facility] [address] [id number] Pcp:Guanakito Tyler MD Subjective: * Chief Complaints: [...] 5.8 * Examination: ???Ophthalmology Referral: ?DIABETES EYE EXAM?Procedure Performed:?Yes ?Date of Exam Performed?10/23/2023 ?Findings of Diabetic Eye Exam:?no retinopathy?Neurological: ?SENSORY:?Neurological exam demonstrates, reduced light touch sensation, [...] of shoe producing skin irritation.?General Examination: ?FOOT EXAM:?Lower Extremity Neurological Exam performed:?Yes ?Footwear Evaluation?Footwear Evaluation performed:?Yes?Vascular: ?DP PULSES(B):?3/4, B/L.?PT PULSES(B):?3/4, B/L.?CAPILLARY FILL TIME:?immediate, all digits, B/L.?TROPHIC CONDITION-TEXTURE/ELASTICITY/TURGOR/HAIR GROWTH(B):?normal, B/L.?TEMPERTURE GRADIENT(C):?normal, warm to cool, proximal to distal, B/L, B/L.? Assessment: * Assessment: 1.?Type 2 diabetes mellitus with polyneuropathy - E11.42 (Primary)??? Plan: * Treatment: * Procedures:?Keratoma Treatment:?Parring or Cutting of Benign Hyperkeratotic Lesion(s)?38458 ( 2-4 Lesions ) - The Benign [...] ING DYSTROPHIC NAILS ANY #, Modifiers: XS 82810 TRIM SKIN LESIONS, 2 TO 4, Modifiers: XS * Follow Up:?2 Months * Images: * Sign off status: Completed true * Provider:?Lily Toledo DPM Date:?04/2023 Generated for Jeri hauser/Flores/eTransmitting on:?04/21/2024 12:18 PM EST History and Physical Notes * [...]
[2024-04-27 04:34] LABS: Thyroxine Binding Globulin 15.7 mcg/mL (13.5-30.9)
== END 2024-04-21 10:09 | disposition home or self-care (01) ==
LOC: HO.10HDL 10:08
PROVIDERS: PCP Nurse Practitioner Acute Care; Visit Provider Internal Medicine
DX: E05.00 Thyrotoxicosis with diffuse goiter without thyrotoxic crisis or storm (principal); E11.42 Type 2 diabetes mellitus with diabetic polyneuropathy
CPT/HCPCS: 36415; 80053; 83036; 84439; 84442; 84443

== ENCOUNTER 2024-07-07 13:39 | Outpatient (AMB) | payer BC, SELFPAY ==
--- OUTSIDE RECORDS SUMMARY | 2024-07-07 13:46 | XMS_ITS | Clinical Summary ---
Author Organization [facility] Address [address] [place] [address] Phone Care Team Providers Care Staffing Clerk Name Role Phone Blaire Estrada IMMIGRATION OFFICER Primary Care Provider [phone] Encounters Date Type Department Care Team Description 05/20/2024 7:49 AM EDT - 05/20/2024 11:59 PM EDT Hospital Encounter [facility] Bone Density [address] [place] [address] Encounter for screening for osteoporosis Discharge Disposition: Home or Self Care from Last 3 Months Surgical History Surgery Date Site/Laterality Comments CHOLECYSTECTOMY 1993 PROCEDURE: HISTORICAL CHOLECYSTECTOMY OTHER SURGICAL HISTORY 2001 PROCEDURE: [place] LAPAROSCOPY SALPINGOSTOMY; COMMENT: left TONSILLECTOMY 1995 PROCEDURE: HISTORICAL TONSILLECTOMY MOUTH SURGERY 2009 PROCEDURE: ORAL SURGERY PROCEDURE; COMMENT: complete set dentures Medical History Medical History Date Comments Unspecified asthma(493.90) DX:Un specified asthma(493.90) Viral pneumonia, unspecified DX: Viral pneumonia, unspecified Asthma 08/24/2007 DX:Asthma Family History Medical History Relation Name Comments Other: adhd Daughter 1 Heart attack Father age 58 Other: osteomyeloma Maternal Grandmother Diabetes Mother lung cance r Relation Name Status Comments Brother 1 Alive Brother 2 Alive Brother 3 Alive Daughter 1 Daughter 2 Father massive heart a ttack at 57yo Maternal Grandmother Mother (Age 65) heart aruna ck; lung cancer Social History Tobacco Use Types Packs/Day Years Used Date Smoking Tobacco: Never Smokeless Tobacco: Never Alcohol Use Standard Drinks/Week Comments Yes 0 (1 standard drink = 0.6 oz pur e alcohol) Comments Unknown Sex and Gender Information Value Date Recorded Sex Assigned at Not on file Legal Sex Female 10:37 PM EST Gender Identity Not on file Sexual Orientation Not on file Obstetrics History Plan of Treatment Health Maintenance Due Date Last Done Comments Breast Cancer Screening 1968 Diabetes: Annual Foot Exam 1978 Diabetes: Annual Retina Eye Exam 1978 Hepatitis B Vaccines (1 of 3 - 19+ 3-dose series) 06/02/1987 Pneumococcal Vaccine: 50+ Years (1 of 2 - PCV) 06/02/1987 Pneumococcal Vaccine: Pediatrics (0 to 5 Years) and At-Risk Patients (6 to 64 Years) (1 of 2 - PCV) 06/02/1987 Cervical Cancer Screening: Pap Smear 1989 DTaP,Tdap,and Td Vaccines (2 - Td or Tdap) 08/17/2014 08/17/2004 Zoster Vaccines (1 of 2) 2018 COVID-19 Vaccine ( season) 2023 01/04/2022, 03/13/2021, 05/19/2020, Additional history exists Cholesterol Screening (Lipid Panel) 05/05/2024 Colorectal Cancer Screening: Colonoscopy 05/05/2024 Depression Screening 05/05/2024 HIV Screening 05/05/2024 Hepatitis C Screening 05/05/2024 Social Influencers of Health Screening 05/05/2024 Diabetes: Blood Sugar Control Test (HGBA1C) 05/20/2024 Diabetes: Annual Urine Albumin-Creatinine Ratio (uACR) 10/20/2024 10/21/2023 Diabetes: Annual GFR (Glomerular Filtration Rate) 10/20/2024 10/21/2023, 07/16/2023 Osteoporosis Screening (Bone Density Screening) 05/20/2034 05/20/2024 Influenza Vaccine Completed 12/20/2023, , 01/04/2022, Additional history exists HIB Vaccines Aged Out No longer eligi ble based on patient's age to complete this topic HPV Vaccines Aged Out No longer eligi ble based on patient's age to complete this topic Hepatitis A Vaccines Aged Out No long er eligible based on patient's age to complete this topic IPV Vaccines Aged Out No longer eligi ble based on patient's age to complete this topic MMR Vaccines Aged Out No longer eligi ble based on patient's age to complete this topic Meningococcal ACWY Vaccine Aged Out N o longer eligible based on patient's age to complete this topic Meningococcal B Vaccine Aged Out No l onger eligible based on patient's age to complete this topic RSV Immunization Patients Under 20 months Aged Out No longer eligible based on patient's age to complete this topic Varicella Vaccines Aged Out No longer eligible based on patient's age to complete this topic Procedures Procedure Name Priority Date/Time Associated Diagnosis Comments BD BONE DENSITY DXA AXIAL SKELETON Routine 05/20/2024 8:29 AM EDT Encounter for screening for osteoporosis from Last 3 Months Results * BD Bone Density DXA Axial Skeleton (05/20/2024 8:29 AM EDT) Anatomical Region Laterality Modality Wrist, Hip, L-spine Bone Densito metry 05/20/2024 8:31 AM EDT Impressions 05/20/2024 8:32 AM EDT 1. There is no evidence of osteoporosis or osteopenia. 2. FRAX analysis yields a 10-year probability of major osteoporotic fracture of 8.3% and a 10-year probability of hip fracture of 0.0%. Code 68105 -------- FINAL REPORT -------- Dictated By: Rah Chamberlain Dictated Date: 05/20/2024 08:31 ET Assigned Physician: Rah Chamberlain Reviewed and Electronically Signed By: Rah Chamberlain Signed Date: 05/20/2024 08:32 ET Workstation ID: [id number] Transcribed By: Self Edit Transcribed Date: 05/20/2024 08:31 ET Narrative 05/20/2024 8:32 AM EDT HISTORY: ??The patient is a 53-year-old postmenopausal female with clinical concern for metabolic bone disease. FINDINGS: ??Dual energy x-ray absorptiometry of the lumbar spine and femurs is performed. The mean bone mineral density at L1-L4 (with the exclusion of L3) is 1.275 gm/cm2 which is 109% of that of young normals and 106% of that of age matched controls. This yields a T-score of 0.9 and a Z-score of 0.6 and there is therefore no evidence of osteoporosis or osteopenia here. The mean bone mineral density of the femurs bilaterally is 1.258 gm/cm2 which is 125% of that of young normals and 123% of that of age matched controls. ??This yields a T-score of 2.0 and a Z-score of 1.8 and there is therefore no evidence of osteoporosis or osteopenia here. Procedure Note Rah Chamberlain MD - 05/20/2024 HISTORY: The patient is a 53-year-old postmenopausal female with clinicalconcern for metabolic bone disease. FINDINGS: Dual energy x-ray absorptiometry of the lumbar spine and femursis performed. The mean bone mineral density at L1-L4 (with the exclusionof L3) is 1.275 gm/cm2 which is 109% of that of young normals and 106% ofthat of age matched controls. This yields a T-score of 0.9 and a Z-scoreof 0.6 and there is therefore no evidence of osteoporosis or osteopeniahere. The mean bone mineral density of the femurs bilaterally is 1.258 gm/jy7daywd is 125% of that of young normals and 123% of that of age matchedcontrols. This yields a T-score of 2.0 and a Z-score of 1.8 and there istherefore no evidence of osteoporosis or osteopenia here. IMPRESSION: 1. There is no evidence of osteoporosis or osteopenia. 2. FRAX analysis yields a 10-year probability of major osteoporoticfracture of 8.3% and a 10-year probability of hip fracture of 0.0%. Code 65184 -------- FINAL REPORT -------- Dictated By: Rah Chamberlain Dictated Date: 05/20/2024 08:31 ET Assigned Physician: Rah Chamberlain Reviewed and Electronically Signed By: Rah Chamberlain Signed Date: 05/20/2024 08:32 ET Workstation ID: [id number] Transcribed By: Self Edit Transcribed Date: 05/20/2024 08:31 ET us Blaire Estrada NP IMG DXA PROCEDURES Final Resu lt from Last 3 Months Insurance [facility] Care Teams Staffing Clerk Relationship Specialty Start Date End Date Blaire Estrada NP [address] [address] PCP - General Nurse Practitioner 05/20/24
--- OUTSIDE RECORDS SUMMARY | 2024-07-07 13:46 | XMS_ITS ---
[facility] Address [address] [place] [address] Care Team Providers Care Automatic Lathe Setter Name Role Phone Sean MCKEE, Blaire Primary Care Provider Lily Corral Unavailable [phone] Allergies Allergen (clinical drug ingredient) Drug/Non Drug Allergy documented on EMR Reaction Allergy Type Onset Date Status ibuprofen Advil on blood thinners Drug Allergy Active Aleve on blood thinners Drug Allergy Active Motrin on blood thinners Drug Allergy Active REASON FOR VISIT At Risk Footcare, Heel pain Medications Medication SIG (Take, Route, Frequency, Duration) [...] day(s) 2 tablets AM/2 tablets PM Not-Taking Ciclopirox Olamine 0.77 % 1 application to affected area Externally to feet Twice a day for 30 days Not-Taking metFORMIN HCl 500 MG as directed Orally twice a day Not-Taking Clotrimazole-Betamet hasone 1-0.05 % 1 application to affected area Externally Twice a day to affected areas on feet for 30 days 05/10/2022 Not-Taking Compression Stockings 20-30mm Hg 1 pair wear daily for 30 days Active Extra Depth Orthopedic Shoes (1 Pair) with Customized Heat Molded Multidensity Innersoles (3 Pair) as directed Dx: NIDDM/Polyneuropathy (E11.42), Hammertoe Foot Deformity (M20.41,M20.42), Preulcerative Skin Lesion(s) (L85.1 Active Night Splint AFO - L1930 1 wear at rest for 30 days Active Ketoconazole 2 % 1 application Externally Twice a day for 30 days PRN 09/30/2022 Active methIMAzole 5 MG 1 tablet Orally Once a day for 30 day(s) every other day Active Cardizem CD 240 MG 1 capsule Orally Once a day for 30 day(s) Active Eliquis 5 MG as directed Orally 1 tab AM/1 ta b PM Active Furosemide 20 MG 1 tablet Orally Once a day for 30 day(s) Active Vitamin C Active Lipitor 10 MG 1 tablet Orally Once a day for 30 day(s) Active Vitamin D 25 MCG (1000 UT) 1 tablet Orally Once a day for 30 day(s) Active Flecainide Acetate 100 MG as directed Orally 1 tab AM/1 tab PM Active Vitamin B Complex - as directed Orally Active Contrave 8-90 MG 1 tablet in the morning Orally Once a day Active Mounjaro 15 MG/0.5ML as directed Subcutaneous Active Magnesium Active Social History Tobacco Use: Social History Observation Description Date Details (start date - stop date) Never Smoker NA - NA Tobacco use other than smoking: Question Answer Notes Are you an other tobacco user? No Tobacco Control (Standard) Question Answer Notes Tobacco use: Nonsmoker Additional Findings: Tobacco non-user Current no nsmoker AUDIT-C (Standard) Question Answer Notes Did you have a drink containing alcohol in the p ast year? No Points 0 Interpretation Negative Problems Problem Type SNOMED Code ICD Code Onset Dates Problem Status W/U Status Risk Notes Problem Plantar fasciitis, bilateral (M72.2) Active confirmed Vital Signs Height 5ft 6in in 05/20/2024 Weight 303 lbs 05/20/2024 BMI 48.9 kg/m2 05/20/2024 Blood pressure systolic 120 mm Hg 05/21/19 25 Blood pressure diastolic 64 mm Hg 025 Encounters Encounter Location Date Provider Diagnosis [facility] [address] 05/20/2024 Lily Toledo Type 2 diabetes mellitus with polyneuropathy E11.42 ; Plantar fasciitis, bilateral M72.2 ; Pain in right foot M79.671 ; Calcaneal spur, right foot M77.31 ; Other myositis of right foot M60.871 ; Bursitis of right foot M77.51 ; Pain in left foot M79.672 ; Calcaneal spur, left foot M77.32 ; Other myositis of left foot M60.872 and Bursitis of left foot M77.52 Assessments Encounter Date Diagnosis (ICD Code) Assessment Notes Treatment Notes Treatment Clinical Notes Section Notes 05/20/2024 Type 2 diabetes mellitus with polyneuropathy (ICD-10 - E11.42) 05/20/2024 Plantar fasciitis, bilateral (ICD-10 - M72.2) Patient Educated with: HEEL CORD STRETCHES.pdf (HEEL CORD STRETCHES.pdf ) Patient Educated with: RICE THERAPY.pdf (RICE THERAPY.pdf) 05/20/2024 Pain in right foot (ICD-10 - M79.671) 05/20/2024 Calcaneal spur, right foot (ICD-10 - M77.31) 05/20/2024 Other myositis of right foot (ICD-10 - M60.871) 05/20/2024 Bursitis of right foot (ICD-10 - M77.51) 05/20/2024 Pain in left foot (ICD-10 - M79.672) 05/20/2024 Calcaneal spur, left foot (ICD-10 - M77.32) 05/20/2024 Other myositis of left foot (ICD-10 - M60.872) 05/20/2024 Bursitis of left foot (ICD-10 - M77.52) Plan Of Treatment Medication Medication Name Sig Start Date Stop Date Notes Night Splint AFO - L1930 1 wear at rest for 30 days Treatment Notes Assessment Notes Plantar fasciitis, bilateral Patient Edu cated with: HEEL CORD STRETCHES.pdf (HEEL CORD STRETCHES.pdf) Patient Educated with: RICE THERAPY.pdf (RICE THERAPY.pdf) Pending Test Test Name Order Date X ray : Foot, left 3V 05/20/2024 X ray : Foot, right 3V 05/20/2024 Next Appt Details Follow Up: 2 Months, Reason: Provider Name:Lily freeman, 07/30/2024 09:30:00 AM, [address] [place] [address], [id number], Procedure Notes * Category Sub-Category Detail Notes Keratoma Treatment Parring or Cutting o f Benign Hyperkeratotic Lesion(s) , (-56) 2-4 Lesions - Due to the at risk nature of the patients medical condition as documented in the exam findings, performance of this keratoderma treatment is medically necessary as its management by an unskilled/untrained nonprofessional would put this patients foot and overall health at risk. Therefore, the benign hyperkeratotic lesions, (4) in total, locations as stated and described in the exam ( Medial plantar, TA, T5, Plantar Heel(s),B/L), were pared, and/or cut utilizing a sterile 15 blade, tissue nippers, and/or power dremel instrumentation by the physician of record - 43113 Nail Reduction Nail Reduction (-27) Trimming o f all dystrophic nails - Due to the at risk nature of the patients medical condition as documented in the exam findings, performance of this nail treatment is medically necessary as its management by an unskilled/untrained nonprofessional would put this patients foot and overall health at risk. Therefore, the dystrophic nails, in locations as stated and described in the exam ( TA, T1, T2, T3, T4, T5, T6, T7, T8, T9, ), were debrided by the phisician of record to reduce/remove overall nail length and girth, by manual and electrical means with use of a nail nipper and/or dremel, to more viable healthy nail plate or bed tissue - G0127 Progress Notes * Lexi CORTEZOB: [birth year] (53 yo F)Acc No.[id number]:05/20/2024 Progress Note Patient:?Corazon CORTEZ Provider:?Lily Toledo DPM :1970???Age:53 Y???Sex:Female D ate:05/20/2024 Address:[address] [place] [address] [id number] Pcp:Blaire Estrada NP Subjective: * Chief Complaints: * ???At Risk FootcareHeel pain * HPI: ???At Risk footcare:?Pt States Last PCP Visit:?Date?05/05/2024 ???Heel pain:?Nature:?tenderness, sharp pain, stiffness.?Location:?Proximal plantar aspect of Heel , B/L.?Duration:?several months.?Onset/Cause:?gradual.?Course:?worse.?Aggravated:?standing, walking, walking first thing in the morning/after rest.?Treatments:?rest/alter normal daily activity.? * ROS:?General/Constitutional:?Nausea?denies.?Vomiting?denies.?Hunger Thirst?denies.?Loss appetite?denies.?Chills?denies.?Fatigue?denies.?Fever?denies.?Night Sweats?denies.?Unexplained weight loss?denies.?Unexplained weight gain?denies.?HEENTM:?Dentures?denies.?Dizziness?denies.?Glasses/contacts?admits.?Retinopathy?den ies.?Blurred/double vision?denies.?TMJ?denies.?Discharge/drainage?denies.?Implants?denies.?Sore throat?denies.?Dental implants?denies.?Hard of hearing ?denies.?Difficulty chewing/swallowing/speaking?denies.?Nose bleeds?denies.?Sore mouth?denies.?Respiratory:?On O xygen?denies.?Pneumonia/pleurisy?denies.?Bronchitis?denies.?Emphysema?denies.?Co ughing?denies.?Cough blood?denies.?Shortness of breath?denies.?Wheezing?denies.?Cardiovascular:?Pacemaker?denies.?MVP?denies.?WPW?denies.?CHF?denies.?Heart attack?denies.?Septal defect?denies.?Rapid beat?denies.?Chest pain ?denies.?Atrial Fib.?denies.?Murmur/Palpitations?denies.?Gastrointestinal:?Hemorrhoids?denies.?Stomach/Abdominal pain?denies.?Dark blood stool?denies.?Irritable bowel ?denies.?Constipation?denies.?Diarrhea?denies.?Hematology:?Swelling?admits.?Clots?denies.?Varicose Veins?denies.?Bruising?denies.?Bleeding problem?denies.?Genitourinary:?Blood urine?denies.?Frequent/Painfu/urination/bladder control?denies.?Kidney stones?denies.?Infection (UTI)?denies.?Nephropathy?denies.?sex trans dis (STD)?denies.?Prostate?denies.?Musculoskeletal:?Hammertoes?denies.?Bunions?denies.?Back Pain?denies.?Muscle Cramps/ Resting?admits.?Muscle cramps / walking?denies.?Generalized aches and pains?admits.?Weakness?denies.?Integ.:?Shah?denies.?Scars?denies.?Corns/calluses?denies.?Ingrown nails?denies.?Painful nails?denies.?Open Sores?denies.?Rashes?denies.?Neurologic:?Difficulty sleeping?denies.?Brain disorder?denies.?Numbness?admits.?Balance t rouble?denies.?Confusion?denies.?Fainting/blackouts?denies.?Tingling?admits.?Rafi mors?denies.? * Medical History:? * Surgical History:?gall bladd er Hernia Repair Cardioversion 09/2019knee, meniscus sx left 11/30/2021 * Hospitalization/Major Diagno stic Procedure:?bone density 05/18 * Family History:?Mother: dece ased, foot problems, diagnosed with Other malignant neoplasm of unspecified site, Diabetic - NIDDM, Unspecified essential hypertension, Unspecified heart disease, Family history of arthritis.?Father: , diagnosed with Diabetic - NIDDM.? * Social History:?Tobacco Use:?Tobacco use other than smoking?Are you an other tobacco user??No ?Tobacco Control (Standard)?Tobacco use:?Nonsmoker ?Additional Findings: Tobacco non-user?Current nonsmoker ???Drugs/Alcohol:?Drugs?Have you used drugs other than those for medical reasons in the past 12 months??No ???Miscellaneous:?Caffeine: yes, unsweetened tea -1 soda a day. ?Children: yes, 1. ?Exercise: yes, walking. ?Marital status: . ?Occupation: [employer]. ???Drug/Alcohol:?AUDIT-C (Standard)?Did you have a drink containing alcohol in the past year??No ?Points?0 ?Interpretation?Negative * Medications:?TakingContrave 8-90 MG Tablet Extended Release [...] on blood thinnersyes[Allergies Verified] Objective: * Vitals:?Ht: 5ft 6in, Wt:303, BMI:48.9, Shoe size: 11W`, BP:120/64mm Hg, BS: 120, Ht-cm: 167.64 cm, Wt-k.44 kg. * ???Past Orders: ???Lab:HEMOGLOBIN A1C (GLYCO HEMOGLOBIN) (Order Date - 03/30/2024) (Collection Date & Time - 05/20/2024 03:28 PM) ? Value Reference Range ?HEMOGLOBIN A1C % (HH) 5.4 * Examination: ???Ophthalmology Referral: ?DIABETES EYE EXAM?Procedure Performed:?Yes ?Date of Exam Performed?10/07/2023 ?Diabetic Retinopathy Screening:?Yes ?Findings of Diabetic Eye Exam:?no retinopathy?Neurological: ?SENSORY:?Neurological exam demonstrates, reduced light touch sensation, reduced sharp/dull discrimination , reduced vibration sensation, in a stocking fashion, B/L, 5.07 monofilament test performed at plantar aspects of 5 varied sites per foot shows sensation, reduced, B/L.?TINEL'S COMPRESSION:?Negative tarsal tunnel, gonzalo pedis, and medial calcaneal nerves.?Nails: ?NAILS are:?TA, T1, T2, T3, T4, T5, T6, T7, T8, T9, Elongated, overgrown, dystrophic.?Dermatologic: ?SKIN FINDINGS:? Skin exam reveals Keratotic lesion(s) located at, Medial plantar, TA, T5, Plantar Heel(s),B/L.?Orthopedic: ?MUSCLE STRENGTH:?5/5 all groups in a symmetrical fashion, B/L.?FOOT MORPHOLOGY:? Pes Planus structure, Decreased Ankle joint dorsiflexion ROM, knee extended.?General Examination: ?GENERAL APPEARANCE:?Reveals a pleasant, alert, well nourished, well- developed, well hydrated individual, who demonstrates proper attention to hygiene/body habitus, and is in no acute distress, Pt serves as own historian for office visit today.?ORIENTED:?person, place, and time.?FOOT EXAM:?Lower Extremity Neurological Exam performed:?Yes ?Visual exam of foot performed:?Yes ?Date?05/20/2024 ?Footwear Evaluation?Footwear Evaluation performed:?Yes?Vascular: ?DP PULSES (B):?3/4, B/L.?PT PULSES (B):?3/4, B/L.?CAPILLARY FILL TIME:?immediate, all digits, B/L.?TROPHIC CONDITION-TEXTURE/ELASTICITY/TURGOR/HAIR GROWTH (B):?normal, B/L.?TEMPERTURE GRADIENT (C):?normal, warm to cool, proximal to distal, B/L, B/L.?PIGMENTATION:?normal, B/L.?EDEMA (C):?absent, B/L.?Heel Pain: ?INSPECTION REVEALS:?Pain on Palpation to Plantar Fascia med. and central bands, intrinsic musc., infra-calcaneal bursa, and med calc tubercle, B/L, No pain: posterior/superior heel, achilles bursa/tendon, sinus tarsi, peroneals, or with lateral heel compression; no limited STJ ROM, calor, or ecchymosis.?X-Rays - IMAGING REPORT: ?Clinical Indication(s):? Evaluate for Fracture, Evaluate Biomechanical Deformity.?Views:?3 views of Foot, LAT, LO, MO , B/L??Taken by trained?Podiatric Technical Clerk (?KL).?Findings:?normal bone and soft tissue density consistent for patients age and sex, navicular/cuneiform plantar subluxation with anterior cyma line, positive infra-calcaneal exostosis, no coalitions identified, dorsal degenerative changes of the tarsal joints.?Fracture:?Negative fractures identified.? * Physical Examination:?L1930 Nightsplint AFO:?Application of static AFO, including soft interface material, adjustable for fit/ positioning/ pressure reduction, may be used for minimal ambulation, prefabricated, including fitting and adjustment:?Large, Left.? Assessment: * Assessment: 1.?Type 2 diabetes mellitus with polyneuropathy - E11.42???2.?Plantar fasciitis, bilateral - M72.2 (Primary)???Specify :Acute problem, Complicated w/ Multiple Tx Options(4),Dx New problem, Prognosis Uncertain (4)???3.?Pain in right foot - M79.671???4.?Calcaneal spur, right foot - M77.31???5.?Other myositis of right foot - M60.871???6.?Bursitis of right foot - M77.51???7.?Pain in left foot - M79.672? ?8.?Calcaneal spur, left foot - M77.32???9.?Other myositis of left foot - M60.872???10.?Bursitis of left foot - M77.52??? Plan: * Treatment: 2.?Pain in right foot?Imaging: X ray : Foot, right 3V 3.?Pain in left foot?Imaging: X ray : Foot, left 3V * Procedures:?Keratoma Treatment:?Parring or Cutting of Benign Hyperkeratotic Lesion(s)?,(-56) 2-4 Lesions - Due to the at risk nature of the patients medical condition as documented in the exam findings, performance of this keratoderma treatment is medically necessary as its management by an unskilled/untrained nonprofessional would put this patients foot and overall health at risk. Therefore, the benign hyperkeratotic lesions, (4) in total, locations as stated and described in the exam (?Medial plantar,?TA,?T5,?Plantar Heel(s),B/L), were pared, and/or cut utilizing a sterile 15 blade, tissue nippers, and/or power dremel instrumentation by the physician of record - 32359.?Nail Reduction:?Nail Reduction?(-27) Trimming of all dystrophic nails - Due to the at risk nature of the patients medical condition as documented in the exam findings, performance of this nail treatment is medically necessary as its management by an unskilled/untrained nonprofessional would put this patients foot and overall health at risk. Therefore, the dystrophic nails, in locations as stated and described in the exam ( TA, T1, T2, T3, T4, T5, T6, T7, T8, T9, ), were debrided by the phisician of record to reduce/remove overall nail length and girth, by manual and electrical means with use of a nail nipper and/or dremel, to more viable healthy nail plate or bed tissue - G0127.? * Procedure Codes:?30165 X-RAY EXAM OF RIGHT FOOT 3V, Modifiers: 26 , [id number] TRIMMING DYSTROPHIC NAILS ANY #, Modifiers: XS 90892 X-RAY EXAM OF LEFT FOOT 3V, Modifiers: 26 , [id number] TRIM SKIN LESIONS, 2 TO 4, Modifiers: XS L1930 AFO PLASTIC/OTH MATERIAL PREFAB * Preventive Medicine:? ??Counseling:?Discussion:?-14: Office or other outpatient visit for the evaluation and management of an established patient, which required a medically appropriate history and/or examination and MODERATE level of DECISION MAKING for: 1 OR MORE CHRONIC PROBLEM(S) THATS WORSENING, 2 STABLE CHRONIC PROBLEMS, A NEWLY DIAGNOSED PROBLEM WITH UNCERTAIN PROGNOSIS, AN ACUTE COMPLICATED INJURY WITH MULTIPLE TREATMENT OPTIONS, OR AN ACUTE PROBLEM WITH ACCOMPANYING SYSTEMIC SYMPTOMS, THAT POSE(S) A MODERATE RISK OF MORBIDITY. THIS CONDITION MAY ALSO INCLUDE RX DRUG MANAGEMENT, OR A DECISON FOR MINOR SURGERY. The visit on the day of the [...] have encouraged the patient to call the office.?Heel pain:?FASCIITIS: I explained to the patient the possible etiologies of Plantar Fasciitis including foot type/shoegear/activity level/exercise routine and the risks/benefits of all the different treatment options for heel pain including: No treatment at all, Rest, Ice, NSAIDs(only if well tolerated after meals), New/supportive Shoegear, Strappings and Tapings, Stretching exercises, Deep Tissue Massage, Heel cups/cushions, Arch support/shoe inserts, Custom orthoses, Topical analgesics including Aspercream/Voltaren gel, Night splint AFO for am stiffness, Cortisone injection therapy, Cast boot with crutches/cane/or walker for assisted ambulation, Physical Therapy, EPAT/ESWT, Interfil injection therapy, as well as surgical [place]/Endoscopic Fasciitomy surgical procedures if needed. Recommendations were made to limit barefoot walking, eliminate wearing nonsupportive shoegear (i.e. flip-flops or sandals, or a shoe with an easily bendable, foldable, or twistable sole) and wear shoegear with a good solid sole, a supportive arch, and plenty of room for an insert/orthotic if necessary. If wearing sandals was required by the patient, we recommended orthopedic sandals such as Orthoheel or Birkenstock even while in the home. If the patient wore heels in the past, we recommended they continue, but eliminate the use of flats. The advantages and disadvantages of each option were discussed and the patients questions re: types of shoegear, custom vs prefabricated inserts, activity level, PO vs Topical medications (and their respective potential complications/drug interactions/side effects), and consistency in home treatment regimens for optimal success were answered to their satisfaction. Literature detailing plantar fasciitis and the various treatment options were dispensed and reviewed.?P.R.I.C.E.:?The patient was counseled on the use of P.R.I.C.E. and NSAIDS (if well tolerated) to aid in the recovery from their painful condition.?Shoe Gear Counseling:?The patient and I reviewed the types of shoes they should be wearing. My recommendation included obtaining a well-fitted shoe with a good supportive, non-foldable nor twistable sole, plenty of toe/room for the forefoot, and proper arch support. Based on todays examination, I recommended the patient look for new shoes, by having their feet professionally measured. We discussed that generally the best time of the day for a shoe fitting is the afternoon. Different shoes types and brands to best match the patients occupation and vocation were discussed. Specific brand selection will be up to the patient, their individual foot condition/deformities, and fit. The patient and I reviewed the standard new shoe break in period by wearing them for a few hours a day while checking for redness or sores as wear time is increased. The patient verbally confirmed to understanding the information discussed.?Stretching Exercises:?Stretching and deep tissue massage exercises for the patients injury/diagnosis were discussed and demonstrated, handouts were dispensed.?X-rays:?Discussed and reviewed the X-rays with the patient. We discussed how the findings relate to the patients symptoms/complaints. Answered any and all questions..? ??Screening/Special Tests:?Fall Risk?Screening:?No falls in the past year ?FALLS: Screening for Future Fall Risk?Have you had any falls with injury in the past year??No * Follow Up:?2 Months * Images: * Sign off status: Completed true * Provider:?Lily Toledo, DPRachana Date:? Generated for Jeri hauser/Flores/Ralph on:?07/07/2024 01:45 PM EDT History and Physical Notes * HPI (History of Present Illness) Category Sub-Category Detail Notes Category Not es Heel pain Duration: several months Nature: tenderness, sharp pa in, stiffness Location: Proximal plantar asp ect of Heel , B/L Onset/Cause: gradual Aggravated: standing, walking, w alking first thing in the morning/after rest Course: worse Treatments: rest/alter normal da yg activity At Risk footcare Pt States Last PCP Visit: Date: 5 Physical Examination Category Sub-Category Detail Notes Section Note s L1930 Nightsplint AFO Application of sta tic AFO, including soft interface material, adjustable for fit/ positioning/ pressure reduction, may be used for minimal ambulation, prefabricated, including fitting and adjustment: Large, Left Examination Category Sub-Category Detail Notes Category Not es Heel Pain INSPECTION REVEALS: Pain on Palp ation to Plantar Fascia med. and central bands, intrinsic musc., infra-calcaneal bursa, and med calc tubercle, B/L, No pain: posterior/superior heel, achilles bursa/tendon, sinus tarsi, peroneals, or with lateral heel compression; no limited STJ ROM, calor, or ecchymosis Neurological SENSORY: Neurological exa m demonstrates, reduced light touch sensation, reduced sharp/dull discrimination , reduced vibration sensation, in a stocking fashion, B/L, 5.07 monofilament test performed at plantar aspects of 5 varied sites per foot shows sensation, reduced, B/L TINEL'S COMPRESSION: Negative tarsal kusum jeanne, gonzalo pedis, and medial calcaneal nerves Dermatologic SKIN FINDINGS: Skin exam reveal s Keratotic lesion(s) located at, Medial plantar, TA, T5, Plantar Heel(s),B/L Orthopedic FOOT MORPHOLOGY: Pes Planus stru cture, Decreased Ankle joint dorsiflexion ROM, knee extended MUSCLE STRENGTH: 5/5 all groups in a symmetrical fashion, B/L General Examination GENERAL APPEARANCE: Reveals a pleasant, alert, well nourished, well-developed, well hydrated individual, who demonstrates proper attention to hygiene/body habitus, and is in no acute distress, Pt serves as own historian for office visit today FOOT EXAM: Lower Extremity Neurological Exa m performed:: Yes Visual exam of foot performed:: Yes Date: 05/20/2024 ORIENTED: person, place, and t talia Footwear Evaluation Footwear Evaluation performe d:: Yes Ophthalmology Referral DIABETES EYE EXAM Procedure Perform ed:: Yes ?Date of Exam Performed: 10/07/2023 Diabetic Retinopathy Screening:: Yes Findings of Diabetic Eye Exam:: no retin opathy Vascular DP PULSES (B): 3/4, B/L PT PULSES (B): 3/4, B/L CAPILLARY FILL TIME: immediate, all digi ts, B/L TEMPERTURE GRADIENT (C): normal, warm to cool, proximal to distal, B/L, B/L TROPHIC CONDITION-TEXTURE/ELASTICITY/TURGOR/HAIR GROWTH (B): normal, B/L EDEMA (C): absent, B/L PIGMENTATION: normal, B/L Nails NAILS are: TA, T1, T2, T3, T4, T5, T6, T7, T8, T9, Elongated, overgrown, dystrophic X-Rays - IMAGING REPORT Findings: normal b one and soft tissue density consistent for patients age and sex, navicular/cuneiform plantar subluxation with anterior cyma line, positive infra-calcaneal exostosis, no coalitions identified, dorsal degenerative changes of the tarsal joints Fracture: Negative fractures i dentified Views: 3 views of Foot, LAT , LO, MO , B/L Taken by trained Podiatric Technical Clerk ( GREGORY) Clinical Indication(s): Evaluate for Fra cture, Evaluate Biomechanical Deformity
--- OUTSIDE RECORDS SUMMARY | 2024-07-07 13:46 | XMS_ITS | Data Portability ---
Author Organization [facility], [facility] Address [address] [place] [address] Care Team Providers Care Public Speaking Coach Name Role Phone [facility] Primary Care Provider MADDIE REYES Primary Care Provider [phone] Assessment No assessment recorded. Plan of Treatment Reminders Order Date Submit Date Provider Last Modified By Organization Details Last Modified Time Details Appointments RECHECK 2024 08:30A M Jose Antonio Navarrete PA-C Not available Not available Not available RECHECK 2024 08:30A M Jose Antonio Navarrete PA-C Not available [...] Organization Details Recorded Time Osteoarthritis of knee 502929057 Active 2023 Jose Antonio Navarrete PA-C [address] [place] [address], [address], [facility] 06:31:49 Problem Notes None recorded. Procedures Surgical History Date Name Laterality Status Provider Name and Address Organization Details Recorded Time 06/21/2024 Sports Knee 4&1 completed Jose Antonio Navarrete PA-C [address] [place] [address], [address], [facility] 06/21/2024 08:24:39 05/11/2024 Sports Knee 4&1 completed Jose Antonio Navarrete PA-C [address], [place], [address], [facility] 05/11/2024 15:25:25 03/16/2024 Sports Knee 4&1 completed Jose Antonio Navarrete PA-C [address], [place], [address], [facility] 03/16/2024 09:59:04 02/11/2024 Sports Knee 4&1 completed Jose Antonio Navarrete PA-C [address], [place], [address], [facility] 02/11/2024 06:26:49 11/12/2023 Sports Knee 4&1 completed Jose Antonio Navarrete PA-C [address], [place], [address], [facility] 11/12/2023 05:57:52 09/29/2023 Sports Knee 4&1 completed Jose Antonio Navarrete PA-C [address], [place], [address], [facility] 09/29/2023 08:27:22 06/25/2023 Sports Knee 4&1 completed Jose Antonio Navarrete PA-C [address], [place], [address], [facility] 06/25/2023 08:35:22 Imaging Results None recorded. Procedure Notes None recorded. Medical Equipment None Reported. Allergies Allergen ID Allergen Name Allergen Category Reaction Reaction Severity Criticality Documentation Date Start Date Code Code System Note Provider Name and Address Organization Details Recorded Time 282176 Tylenol with Codeine medicatio n Not available Not available Not available 06/25/2023 91138 6 RxNorm Jose Antonio Navarrete PA-C [address] [facility], [place], [address], [facility] [...] subcutaneou s pen injector INJECT 15 MG (0.5 ML) SUBCUTANE OUSLY ONCE A WEEK active Not [...] Updated DateTime 12/23/2023 172.72 cm 45 kg/m2 569743.34 g Jose Antonio Navarreet PA-C [address] [facility], [place], [address], [facility] 12/23/2023 10:10:44 Date Recorded Body height Body mass index (BMI) Body weight Provider Name and Address Organization Details Last Updated DateTime 02/11/2024 172.72 cm 45 kg/m2 761933.34 g Jose Antonio Navarrete PA-C [address] [facility], [place], [address], [facility] 02/11/2024 08:50:04 Date Recorded Body height Body mass index (BMI) Body weight Provider Name and Address Organization Details Last Updated DateTime 03/16/2024 172.72 cm 45.6 kg/m2 070631.71 g Jose Antonio Navarrete PA-C [address] [facility], [place], [address], [facility] 03/16/2024 09:45:13 Date Recorded Body height Body mass index (BMI) Body weight Provider Name and Address Organization Details Last Updated DateTime 05/11/2024 172.72 cm 44.7 kg/m2 883664.16 g Jose Antonio Navarrete PA-C [address] [facility], [place], [address], [facility] 05/11/2024 14:59:35 Date Recorded Body height Body mass index (BMI) Body weight Provider Name and Address Organization Details Last Updated DateTime 06/21/2024 172.72 cm 44.6 kg/m2 922545.56 g Jose Antonio Navarrete PA-C [address] [facility], [place], [address], [facility] 06/21/2024 09:18:38 Social History Question Answer Notes LastModified by Organizat ion Details LastModified Time Tobacco Smoking Status Never Smoker Jose Antonio Navarrete PA-C [address], [place], [address], [facility] [place] [facility] 06/21/2024 09:19:17 What Is Your Relationship Status? [email or web address] [id number] Information not available 06/21/2024 Sex: Unknown Functional Status Question Answer Note LastModified by Organizat ion Details LastModified Time Do you use any illicit or recreational drugs? [place] [id number] Information not available 06/21/2024 What is your level of alcohol consumption? None [place] [address] Information not available 06/21/2024 Mental Status None recorded. Family History Nothing Reported. Medical History Condition Response Heart Trouble Y Diabetes Y Arthritis Y Thyroid Problems Y Sleep Apnea Y Gynecological HistoryNo gynecological history recorded. Obstetrics History GPAL:G 0 P 0 0 0 0 Past Encounters Encounter ID Performer Location Encounter Start Date Encounter Closed Date Diagnosis/Indication Diagnosis SNOMED-CT Code Diagnosis ICD10 Code Diagnosis Note [id number] [facility] [address] [place] [address] 06/25/2023 08:11:22 07/08/2023 14:07:40 Osteoarthritis of knee 984135499 M17.9 [id number] [facility] [address] [place] [address] 09/29/2023 08:04:13 10/20/2023 16:00:21 Osteoarthritis of knee 874752168 M17.9 [id number] [facility] [address] [place] [address] 11/12/2023 08:10:47 11/24/2023 14:23:35 Osteoarthritis of knee 821707142 M17.9 [id number] [facility] [address] [place] [address] 12/23/2023 09:57:27 01/12/2024 09:47:50 Osteoarthritis of knee 783907131 M17.9 [id number] [facility] [address] [place] [address] 02/11/2024 08:26:28 03/08/2024 10:19:34 Osteoarthritis of knee 960320508 M17.9 [id number] [facility] [address] [place] [address] 03/16/2024 09:28:26 04/02/2024 09:02:50 Osteoarthritis of knee 473157606 M17.9 [id number] [facility] [address] [place] [address] 05/11/2024 14:47:57 05/26/2024 07:52:38 Osteoarthritis of knee 366155779 M17.9 [id number] [facility] [address] [place] [address] 06/21/2024 09:07:49 06/25/2024 07:44:43 Osteoarthritis of knee 136019386 M17.9 Health Concerns Section Related Observation LastModified by Organization Detai ls LastModified Time None Recorded Concern Status LastModified by Organization Details LastModified Time None Recorded Advance Directives Directive None Recorded Payers Encounter Date Sequence Insurance Name Policy Number Policy Angela Covered Member ID Angela Member ID Guarantor Name 12/23/2023 1 [place] [id number] Corazon Cortez [id number] Corazon Cortez 02/11/2024 1 [place] [id number] Corazon Cortez [id number] Corazon Cortez 03/16/2024 1 [place] [id number] Corazon Cortez [id number] Corazon Cortez 05/11/2024 1 [place] [id number] Corazon Cortez [id number] 06 Corazon Cortez 06/21/2024 1 [place] [id number] Corazon Cortez [id number] Corazon Cortez Notes Date Note Type [...] oriented x3. Normal insight, affect, and grooming. OPERATIONS RECRUITER: Gross motor coordination is intact. No spasticity [...] views ordered and independently reviewed today at [facility] of the bilateral knee taken [...] of considering arthroplasty sometime in the spring. [facility] speech recognition chemical production machine operator software was used to create portions of this document. An attempt at proofreading has been made to minimize errors. Please call for corrections [facility] [address], [place], [address], [facility] 12/23/2023 10:32:57 02/11/2024 text/html [...] oriented x3. Normal insight, affect, and grooming. OPERATIONS RECRUITER: Gross motor coordination is intact. No spasticity [...] views ordered and independently reviewed previously at [facility] of the bilateral knee taken [...] the importance of compliance regarding home exercises. [facility] speech recognition chemical production machine operator software was used to create portions of this document. An attempt at proofreading has been made to minimize errors. Please call for corrections Jose Antonio Navarrete PA-C [address], [place], [address], [facility] 02/11/2024 09:23:29 03/16/2024 text/html I am seeing the patient today [...] 44.7 reports no recent complications or issues. Clinical Update:Patient returns today for follow-up evaluation regarding her right knee. She continues to make steady improvements she is having less symptoms she was recently continues to work on weight loss which has plateaued a bit recently. Patient does report a episode this morning where her knee locked up on her while in the shower. Orthopedic Exam: Right knee Restricted range of motion good anterior-posterior stability no laxity valgus or varus stressing. Exquisite medial and the lateral joint line tenderness with patellofemoral crepitus noted, 1+ effusion, 4/5 strength. X-rays report: 4 views ordered and independently reviewed today at [facility] of the bilateral knee taken previously show advanced medial apartment and patellofemoral osteoarthritis. Assessment: Left and right knee medial compartment and patellofemoral osteoarthritis. Plan: Treatment options reviewed ultimately decision made to go forth right knee corticosteroid injection. She is going to meet with her primary care doctor and discuss changing up some of her medications to try to optimize her readiness for total knee arthroplasty. [facility] speech recognition chemical production machine operator software was used to create portions of this document. An attempt at proofreading has been made to minimize errors. Please call for corrections Jose Antonio Navarrete PA-C [address] [place] [address] [address], [place], [address], [facility] [place] [facility] 03/16/2024 09:59:23 05/11/2024 text/html I am seeing the patient today [...] 44.7 reports no recent complications or issues. Clinical Update:Patient returns today for follow-up evaluation regarding her right knee. She continues to make steady improvements she is having less symptoms she was recently continues to work on weight loss which has plateaued a bit recently. Patient does report a episode this morning where her knee locked up on her while in the shower. Orthopedic Exam: Right knee Restricted range of motion good anterior-posterior stability no laxity valgus or varus stressing. Exquisite medial and the lateral joint line tenderness with patellofemoral crepitus noted, 1+ effusion, 4/5 strength. X-rays report: 4 views ordered and independently reviewed today at [facility] of the bilateral knee taken previously show advanced medial apartment and patellofemoral osteoarthritis. Assessment: Left and right knee medial compartment and patellofemoral osteoarthritis. Plan: Treatment options reviewed ultimately decision made to go forth right knee corticosteroid injection. She is going to meet with her primary care doctor and discuss changing up some of her medications to try to optimize her readiness for total knee arthroplasty. [employer] speech recognition chemical production machine operator software was used to create portions of this document. An attempt at proofreading has been made to minimize errors. Please call for corrections Jose Antonio Navarrete PA-C [address] [place] [address] Suite [facility], [place], [address], [facility] [place] [facility] 05/11/2024 15:25:38 06/21/2024 text/html I am seeing the patient today under the supervision of Dr. Bashir who was available but who did not see the patient. Clinical Update:Patient returns today for follow-up evaluation regarding her right knee. She continues to make steady improvements she is having less symptoms she was recently continues to work on weight loss which has plateaued a bit recently. Patient does report a episode this morning where her knee locked up on her while in the shower. Orthopedic Exam: Right knee Restricted range of motion good anterior-posterior stability no laxity valgus or varus stressing. Exquisite medial and the lateral joint line tenderness with patellofemoral crepitus noted, 1+ effusion, 4/5 strength. X-rays report: 4 views ordered and independently reviewed today at [facility] of the bilateral knee taken previously show advanced medial apartment and patellofemoral osteoarthritis. Assessment: Left and right knee medial compartment and patellofemoral osteoarthritis. Plan: Treatment options reviewed ultimately decision made to go forth right knee corticosteroid injection. She is going to meet with her primary care doctor and discuss changing up some of her medications to try to optimize her readiness for total knee arthroplasty. [facility] speech recognition chemical production machine operator software was used to create portions of this document. An attempt at proofreading has been made to minimize errors. Please call for corrections Jose Antonio Navarrete PA-C [address] [facility] [address], [place], [address], [facility] [place] [facility] 06/21/2024 09:43:43 OBGyn Episode No OBEpisode recorded.
--- OUTSIDE RECORDS SUMMARY | 2024-07-07 13:46 | XMS_ITS ---
Author Organization [facility] Address [address] [place] [address] Care Team Providers Care Rn Tele Name Role Phone Sean MCKEE, Blaire Primary Care Provider Lily Corral [phone] REASON FOR VISIT night splint Encounters Encounter Location Date Provider Diagnosis [address] [address] 05/21/2024 Lily Toledo Plan Of Treatment Next Appt Details Provider Name:Lily freeman, 07/30/2024 09:30:00 AM, [address] [facility], [place], [address], Progress Notes * Lexi CORTEZOB: [birth year] (53 yo F)Acc No.[id number]:05/21/2024 Patient:?SUZANNARanCorazon :1970???Age:53 Y???Sex:Female Address:[address] [place], [address] * true * Date:? Generated for Printi murtaza/Flores/eTransmitting on:?07/07/2024 01:45 PM EDT
--- OUTSIDE RECORDS SUMMARY | 2024-07-07 13:46 | XMS_ITS | Patient Health Record ---
Author Organization [facility] Address [address] [facility] [place] [address] Care Team Providers Care Plastics And Composites Inspector Name Role Phone Sean MCKEE, Blaire Primary Care Provider Lily Corral Unavailable [phone] Allergies Allergen (clinical drug ingredient) Drug/Non Drug Allergy documented on EMR Reaction Allergy Type Onset Date Status ibuprofen Advil on blood thinners Drug Allergy Active Aleve on blood thinners Drug Allergy Active Motrin on blood thinners Drug Allergy Active Results Component Value Reference Range Notes HEMOGLOBIN A1C (GLYCOHEMOGLO BIN) Reviewed date:11/14/2023 10:19:34 AM Interpretation: Performing Lab: Notes/Report: TOTAL HEMOGLOBIN (HGBA1C) 5.5 HEMOGLOBIN A1C (GLYCOHEMOGLO BIN) Reviewed date:01/27/2024 09:20:34 AM Interpretation: Performing Lab: Notes/Report: TOTAL HEMOGLOBIN (HGBA1C) 5.8 HEMOGLOBIN A1C (GLYCOHEMOGLO BIN) Reviewed date:05/20/2024 03:29:09 PM Interpretation: Performing Lab: Notes/Report: HEMOGLOBIN A1C % (HH) 5.4 Reason For Referral No Information Medications Medication SIG (Take, Route, Frequency, Duration) Notes Start Date End Date Status Furosemide 20 MG 1 tablet Orally Once a day for 30 day(s) Active Ciclopirox Olamine 0.77 % 1 application to affected area Externally to feet Twice a day for 30 days Not-Taking Vitamin C Active metFORMIN HCl 500 MG as directed Orally twice a day Not-Taking Lipitor 10 MG 1 tablet Orally Once a day for 30 day(s) Active Night Splint AFO - L1930 1 wear at rest for 30 days Active Vitamin D 25 MCG (1000 UT) 1 tablet Orally Once a day for 30 day(s) Active Clotrimazole-Betamet hasone 1-0.05 % 1 application to affected area Externally Twice a day to affected areas on feet for 30 days 05/10/2022 Not-Taking Vitamin B Complex - as directed [...] Twice a day for 30 days Not-Taking Mounjaro 15 MG/0.5ML as directed Subcutaneous Active Compression Stockings 20-30mm Hg 1 pair wear daily for 30 days Active Magnesium Active Extra Depth Orthopedic Shoes (1 Pair) with Customized Heat Molded Multidensity Innersoles (3 Pair) as directed Dx: NIDDM/Polyneuropathy (E11.42), Hammertoe Foot Deformity (M20.41,M20.42), Preulcerative Skin Lesion(s) (L85.1 Active Flecainide Acetate 100 MG as directed [...] (M20.41,M20.42), Preulcerative Skin Lesion(s) (L85.1 09/20/2020 Not-Taking Cardizem CD 240 MG 1 capsule Orally Once a day for 30 day(s) Active Januvia 100 MG 1 tablet Orally Once a day for 30 day(s) Not-Taking Eliquis 5 MG as directed Orally 1 tab AM/1 ta b PM Active glipiZIDE 5 MG 1 tablet 30 minutes before breakfast Orally Once a day for 30 day(s) 2 tablets AM/2 tablets PM Not-Taking Immunizations Vaccine Route Administration Date Status [...] Problem Acquired hammer toe of right foot (027946641607939 5) Other hammer toe(s) (acquired), right foot (M20.41) Active confirmed Problem Acquired hammer toe of left foot (301925821477670 3) Other hammer toe(s) (acquired), left foot (M20.42) Active confirmed Problem 811721557 Hammer toe of le ft foot (M20.42) Active confirmed Problem 25673262 Type 2 diabetes mellitus with polyneuropathy (E11.42) Active confirmed Problem Plantar fascial fibromatosis (23051726) Plantar fasciitis, bilateral (M72.2) Active confirmed Vital Signs Blood pressure diastolic 64 mm Hg 05/20/2024 Height 5ft 6in in 05/20/2024 Blood pressure systolic 120 mm Hg 05/20/2024 Weight 303 lbs 05/20/2024 BMI 48.9 kg/m2 05/20/2024 Encounters Encounter Location Date Provider Diagnosis [facility] [address] 08/29/2023 Lily Toledo Type 2 diabetes mellitus with polyneuropathy E11.42 ; Tinea pedis B35.3 and Edema, lower extremity R60.[address] [facility] [address] [place] [address] 11/14/2023 Lily Toledo Type 2 diabetes mellitus with polyneuropathy E11.42 and Tinea pedis B35.[address] [address] 01/27/2024 Lily Toledo Type 2 diabetes mellitus with polyneuropathy E11.[address] [address] 05/20/2024 Lily Toledo Type 2 diabetes mellitus [...] M60.872 and Bursitis of left foot M77.[address] [address] 05/21/2024 Lily Toledo Assessments Encounter Date Diagnosis (ICD Code) Assessment Notes Treatment Notes Treatment Clinical Notes Section Notes 08/29/2023 Type 2 diabetes mellitus with polyneuropathy (ICD-10 - E11.42) 11/14/2023 Type 2 diabetes mellitus with polyneuropathy (ICD-10 - E11.42) 01/27/2024 Type 2 diabetes mellitus with polyneuropathy (ICD-10 - E11.42) 05/20/2024 Type 2 diabetes mellitus with polyneuropathy (ICD-10 - E11.42) 05/20/2024 Plantar fasciitis, bilateral (ICD-10 - M72.2) Patient Educated with: HEEL CORD STRETCHES.pdf (HEEL CORD STRETCHES.pdf ) Patient Educated with: RICE THERAPY.pdf (RICE THERAPY.pdf) 05/20/2024 Pain in right foot (ICD-10 - M79.671) 11/14/2023 Tinea pedis (ICD-10 - B35.3) 08/29/2023 Tinea pedis (ICD-10 - B35.3) 08/29/2023 Edema, lower extremity (ICD-10 - R60.0) 05/20/2024 Calcaneal spur, right foot (ICD-10 - M77.31) 05/20/2024 Other myositis of right foot (ICD-10 - M60.871) 05/20/2024 Bursitis of right foot (ICD-10 - M77.51) 05/20/2024 Pain in left foot (ICD-10 - M79.672) 05/20/2024 Calcaneal spur, left foot (ICD-10 - M77.32) 05/20/2024 Other myositis of left foot (ICD-10 - M60.872) 05/20/2024 Bursitis of left foot (ICD-10 - M77.52) Plan Of Treatment Pending Test Test Name Order Date X ray : Foot, left 3V 05/20/2024 X ray : Foot, right 3V 05/20/2024 Next Appt Details Provider Name:Lily freeman, 07/30/2024 09:30:00 AM, [address] [place] [address], [address], Insurance Providers Payer Name Payer Address Payer Phone Subscriber Number Group Number Insured Name Patient Relationship to Insured Coverage Start Date Coverage End Date [facility] [address] [place] [address] [phone] [id number] Corazon Cortez Self - patient is the insured Medical (General) History Medical History History ICD Code type II diabetes asthma Back,Hip,and Knee pain Broken bones Numbness Sciatica chronic sinusitis thyroid Chicken pox Graves disease A fib schambergs Covid 19 Surgical History Surgery Date(Month/Year) gall bladder Hernia Repair Cardioversion 09/2019 knee, meniscus sx left 11/30/2021 Hospitalization History Reason Date(Month/Year) bone density 05/18
--- OUTSIDE RECORDS SUMMARY | 2024-07-07 13:46 | XMS_ITS | Patient Health Record ---
Author Organization [facility] Address [address] [place] [address] Care Team Providers [employer] Counter Clerk Name Role Phone MADDIE REYES Unavailable [phone] Allergies Allergen (clinical drug ingredient) Drug/Non Drug Allergy documented on EMR Reaction Allergy Type Onset Date Status ibuprofen Ibuprofen Blood thinner Drug Allergy Act indigo Results Component Value Reference Range Notes BD BONE DENSITY DXA AXIAL SK ELETON Reviewed date:05/20/2024 08:56:43 AM Interpretation: Performing Lab: Notes/Report: Note See Note [facility], a member of [facility] Patient Name: CORAZON CORTEZ Date of : 1970 Reason for Exam: SCREENING Exam Date: 05/20/2024 [id number] EST Report Status: Final Ordering Provider: MADDIE REYES PCP: MADDIE REYES HISTORY: The patient is a 53-year-old postmenopausal female with clinical concern for metabolic bone disease. FINDINGS: Dual energ y x-ray absorptiometry of the lumbar spine and [...] osteoporosis or osteopenia here. The mean bone minera l density of the femurs bilaterally is 1.258 gm/cm2 which is 125% of that of young normals and 123% of that of age matched controls. This yields a T-score of 2.0 and a Z-score of 1.8 and there is therefore no evidence of osteoporosis or osteopenia here. IMPRESSION: 1. There is no evide nce of osteoporosis or osteopenia. 2. FRAX analysis yie lds a 10-year probability of major osteoporotic fracture of 8.3% and a 10-year probability of hip fracture of 0.0%. Code 28537 -------- FINAL REPOR T -------- Dictated By: Rah Chamberlain Dictated Date: 05/20 08:31 ET Assigned Physician: Rah Chamberlain Reviewed and Electro nically Signed By: Rah Chamberlain Signed Date: 025 08:32 ET Workstation ID: [id number] Transcribed By: Self Edit Transcribed Date: 05/20/2024 08:31 ET Reason For Referral Reason Home Sleep Study ([facility]) Diagnosis 1 Obstructive apnea (G 47.33) Referral Organization [place] [address] Referring Provider First Name MADDIE Referring Provider Last Name AMY Referring Provider Speciality Internal M edicine Referred Provider Specialty Pulmonology General Notes Alba Vail 01/2025 09:38:15 AM > Pt given phone [phone] to call and make an appt and referral form faxed to [phone] Clinical Notes Ursula Sanon 06/28 12:26:35 PM >can you resend referral to [facility] needs a insurance referral, Gomez Aquino 07/05/2024 09:43:16 AM > refaxed to [facility] Referral Priority Routine Medications Medication SIG (Take, Route, Frequency, Duration) Notes Start Date End Date Status Atorvastatin Calcium 10 MG 1 tablet Oral Once a day for 90 days Active Flecainide Acetate 100 MG 0.5 tablet Ora l every 12 hrs for 90 days Active dilTIAZem HCl ER Coated Beads 240 MG Oral for 30 Days Active Omeprazole 20 MG 1 capsule 1/2 to 1 h our before morning meal Oral Once a day for 90 days Active methIMAzole 5 MG 1 tablet Oral Once e very other day for 90 days Active Mounjaro 15 MG/0.5ML 15mg Subcutaneous w eekly for 30 days 03/10/2023 Active Magnesium Oxide 400 MG Oral for 30 Days Active metFORMIN HCl ER 750 MG 1 tablet with ev ening meal Orally Once a day for 90 days Active Vitamin C Active Mounjaro 12.5 MG/0.5ML 12.5mg Subcutaneo us weekly for 30 days Active Vitamin D (Cholecalciferol) 50 MCG (1999 UT) 1 capsule Orally Once a day Active Vitamin B 12 500 MCG 1 tablet Orally Once a day Active Contrave 8-90 MG Week 1, take 1 table t in the morning Week 2 take 1 tablet in the morning, 1 tablet in the evening Week 3 take 2 tablets in the morning, 1 tablet in the evening Week 4 onward 2 tablets in the morning, 2 tablets in the evening Orally twice a day for 30 days Active Furosemide 20 MG Oral for 30 Days Active Eliquis 5 MG as directed Orally t wice a day for 90 days Active Social History Tobacco Use: Social History Observation Description Date Details (start date - stop date) Never Smoker NA - NA Tobacco Use/Smoking Question Answer Notes Are you a nonsmoker Problems Problem Type SNOMED Code ICD Code Onset Dates Problem Status W/U Status Risk Notes Problem Screening for osteoporosis (074664229) Encounter for screening for osteoporosis (Z13.820) Active confirmed Problem 874344134 Morbid obesity (E66.01) Active confirmed Problem 49200320 NICHOLE (obstructive sleep apnea) (G47.33) Active confirmed Problem 198484999 Chronic anticoagulation (Z79.01) Active confirmed Problem 748722223 Type 2 diabetes mellitus without complication, without long-term current use of insulin (E11.9) Active confirmed Problem 786640666 BMI 50.0-59.9, adult (Z68.43) Active confirmed Problem 308278271 Graves disease (E05.00) Active confirmed Problem 046537594 PAF (paroxysmal atrial fibrillation) (I48.0) Active confirmed Problem 057430540 BMI 45.0-49.9, adult (Z68.42) Active confirmed Problem 421712997 Sensorineural hearing loss (SNHL) of both ears (H90.3) Active confirmed Problem Obstructive apne a (G47.33) Active confirmed Vital Signs Heart Rate 95 /min 06/22/2024 Oximetry 98 % 06/22/2024 Blood pressure diastolic 64 mm Hg 06/22/2024 Height 66 in 06/22/2024 Blood pressure systolic 126 mm Hg 06/22/2024 Weight 292.3 lbs 06/22/2024 BMI 47.17 kg/m2 06/22/2024 Encounters Encounter Location Date Provider Diagnosis [place] [address] [address] 08/07/2023 MADDIE SANDHUREDDT Morbid obesity E66.0 1 ; BMI 45.0-49.9, adult Z68.42 ; Dietary counseling and surveillance Z71.3 ; Type 2 diabetes mellitus without complication, without long-term current use of insulin E11.9 ; Graves disease E05.00 ; Chronic anticoagulation Z79.01 ; PAF (paroxysmal atrial fibrillation) I48.0 and NICHOLE (obstructive sleep apnea) G47.33 [place] [address] [address] 10/16/2023 MADDIE BORHOT Morbid obesity E66.0 1 ; BMI 45.0-49.9, adult Z68.42 ; Dietary counseling and surveillance Z71.3 ; Type 2 diabetes mellitus without complication, without long-term current use of insulin E11.9 ; Graves disease E05.00 ; Chronic anticoagulation Z79.01 ; PAF (paroxysmal atrial fibrillation) I48.0 and NICHOLE (obstructive sleep apnea) G47.33 [place] [address] [address] 12/18/2023 MADDIE FINNT Morbid obesity E66.0 1 ; BMI 45.0-49.9, adult Z68.42 ; Dietary counseling and surveillance Z71.3 ; Type 2 diabetes mellitus without complication, without long-term current use of insulin E11.9 ; Graves disease E05.00 ; Chronic anticoagulation Z79.01 ; PAF (paroxysmal atrial fibrillation) I48.0 and NICHOLE (obstructive sleep apnea) G47.33 [place] [address] [address] 03/17/2024 MADDIE AMY Morbid obesity E66.0 1 ; BMI 45.0-49.9, adult Z68.42 ; Dietary counseling and surveillance Z71.3 ; Type 2 diabetes mellitus without complication, without long-term current use of insulin E11.9 ; Graves disease E05.00 ; Chronic anticoagulation Z79.01 ; PAF (paroxysmal atrial fibrillation) I48.0 and NICHOLE (obstructive sleep apnea) G47.33 [place] [address] 05/05/2024 MADDIE BORHOT Morbid obesity E66.0 1 ; BMI 45.0-49.9, adult Z68.42 ; Dietary counseling and surveillance Z71.3 ; Type 2 diabetes mellitus without complication, without long-term current use of insulin E11.9 ; Graves disease E05.00 ; Chronic anticoagulation Z79.01 ; PAF (paroxysmal atrial fibrillation) I48.0 and NICHOLE (obstructive sleep apnea) G47.[address] [facility] [address] 06/22/2024 MADDIE BORHOT Morbid obesity E66.0 1 ; BMI 45.0-49.9, adult Z68.42 ; Dietary counseling and surveillance Z71.3 ; Type 2 diabetes mellitus without complication, without long-term current use of insulin E11.9 ; Graves disease E05.00 ; Chronic anticoagulation Z79.01 ; PAF (paroxysmal atrial fibrillation) I48.0 ; NICHOLE (obstructive sleep apnea) G47.33 and Sensorineural hearing loss (SNHL) of both ears H90.3 [facility] [address] [place] [address] 07/30/2023 MADDIE BORHOT Morbid obesity E66.0 [address] [facility] [address] 10/22/2023 MADDIE BORHOT Morbid obesity E66.0 [address] [facility] [address] 11/07/2023 MADDIE BORHOT [facility] [address] 11/12/2023 MADDIE BORHOT Morbid obesity E66.0 [address] [facility] [address] 04/19/2024 MADIDE BORHOT [place] [address] 05/05/2024 MADDIECARMEN BRISENOT Encounter for screen ing for osteoporosis Z13.820 [facility] [address] [place] [address] 05/20/2024 MADDIE BORHOT [facility] [address] [address] 06/28/2024 MADDIE REYES [facility] [address] [place] [address] 07/02/2024 MADDIE REYES [facility] [address] [facility] [address] [place] [address] 07/06/[address] [facility] [address] [facility] [address] [facility] [address] [place] [address] 06/26/[address] [facility] [address] [facility] [address] [facility] [address] [place], [place] 07/02/2024 MADDIE REYES [facility] [address] [facility] [address] [facility] [address] [place], [place] 07/03/2024 MADDIE REYES [facility] [address] [facility] [address] [facility] [address] [place] [address] 07/05/2024 MADDIE REYES Assessments Encounter Date Diagnosis (ICD Code) Assessment Notes Treatment Notes Treatment Clinical Notes Section Notes 07/30/2023 Morbid obesity (ICD-10 - E66.01) 08/07/2023 Morbid obesity (ICD-10 - E66.01) #Weight Management 08/07/2023 thriving Thyroid function is very inconsistent and sporadic at the moment which can alter and hinder weight loss 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 deboning team leader and rechecking labs every 4 weeks or [...] minimum of 6 months The most recent [place] [employer] of clinical endocrinologists and [place] [employer] endocrin[employer] guidelines recommend patients who [...] track activity level. Consider using apps like SingOn, [employer] Games[employer], lose it, stick as needed for self-monitoring and weight management. Consider group exercises. Consider hiring a personal banking representative. Regular exercise is carvalho to sustainable [...] counseling and psychiatry and Dr Andres at [facility]. We would like to cover regular topics [...] software and direct typing Please excuse inadvertent brand ambassador or typing errors, or uncorrected word substitutions Although every attempt has been made by the provider to proofread this document, occasional misspellings and typographical errors may still be present Due to the previous pandemic, and the use of personal protective equipment (PPE) This may decrease voice recognition accuracy Inadvertent brand ambassador errors may occur 08/07/2023 BMI 45.0-49.9, adult (ICD-10 - Z68.42) #Weight Management 08/07/2023 thriving Thyroid function is very inconsistent and sporadic at the moment which can alter and hinder weight loss 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 deboning team leader and rechecking labs every 4 weeks or [...] minimum of 6 months The most recent [place] [employer] of clinical endocrinologists and [place] [employer] end[employer]in[employer] guidelines recommend patients who [...] track activity level. Consider using apps like [employer] exceMunch a Bunchise, myComecerpal, lose it, stick as needed for self-monitoring and weight management. Consider group exercises. Consider hiring a personal banking representative. Regular exercise is carvalho to sustainable [...] counseling and psychiatry and Dr Andres at [facility]. We would like to cover regular topics [...] software and direct typing Please excuse inadvertent brand ambassador or typing errors, or uncorrected word substitutions Although every attempt has been made by the provider to proofread this document, occasional misspellings and typographical errors may still be present Due to the previous pandemic, and the use of personal protective equipment (PPE) This may decrease voice recognition accuracy Inadvertent brand ambassador errors may occur 10/16/2023 Morbid obesity (ICD-10 - E66.01) #Weight Management 10/16/2023 Labs reviewed from [facility] September 2023 thriving Given ongoing weight loss this may be a recurrent problem until her weight stabilizes 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 deboning team leader and rechecking labs every 4 weeks or [...] minimum of 6 months The most recent [place] [employer] of clinical endocrinologists and [place] [employer] endocrin[employer] guidelines recommend patients who [...] track activity level. Consider using apps like SingOn, [employer], lose it, stick as needed for self-monitoring and weight management. Consider group exercises. Consider hiring a personal banking representative. Regular exercise is carvalho to sustainable [...] counseling and psychiatry and Dr Andres at [facility]. We would like to cover regular topics [...] software and direct typing Please excuse inadvertent brand ambassador or typing errors, or uncorrected word substitutions Although every attempt has been made by the provider to proofread this document, occasional misspellings and typographical errors may still be present Due to the previous pandemic, and the use of personal protective equipment (PPE) This may decrease voice recognition accuracy Inadvertent brand ambassador errors may occur 10/22/2023 Morbid obesity (ICD-10 - E66.01) 11/12/2023 Morbid obesity (ICD-10 - E66.01) 12/18/2023 Morbid obesity (ICD-10 - E66.01) #Weight Management 12/18/2023 Labs reviewed from [facility] September 2023 thriving Given ongoing weight loss this may be a recurrent problem until her weight stabilizes 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 deboning team leader and rechecking labs every 4 weeks or [...] minimum of 6 months The most recent [place] [employer] of clinical endocrinologists and [place] [employer] endocrinology guidelines recommend patients who [...] software and direct typing Please excuse inadvertent brand ambassador or typing errors, or uncorrected word substitutions Although every attempt has been made by the provider to proofread this document, occasional misspellings and typographical errors may still be present Due to the previous pandemic, and the use of personal protective equipment (PPE) This may decrease voice recognition accuracy Inadvertent brand ambassador errors may occur 03/17/2024 Morbid obesity (ICD-10 [...] minimum of 6 months The most recent [place] [employer] of clinical endocrinologists and [place] [employer] endocrinology guidelines recommend patients who [...] software and direct typing Please excuse inadvertent brand ambassador or typing errors, or uncorrected word substitutions Although every attempt has been made by the provider to proofread this document, occasional misspellings and typographical errors may still be present Due to the previous pandemic, and the use of personal protective equipment (PPE) This may decrease voice recognition accuracy Inadvertent brand ambassador errors may occur 05/05/2024 Morbid obesity (ICD-10 - E66.01) Acute Concerns/Problem List: 05/05/2024 She continues to follow with endocrinology and her PCP to follow her thyroid levels closely as she is on methimazole FMLA paperwork was completed today She is euthyroid chemically _update sleep study Labs reviewed She is also working with orthopedic surgery, she is getting injections in her knee They are holding off on surgery until last resort Total time spent today was 30 minutes of which greater than 50% was spent on coordinating and counseling Patient has been found to be obese with a BMI of (47). Patient has class (3) obesity. We are a board certified obesity and weight management practice Of note, some information is being carried forward from prior records for informational purposes only and is being cited so that efficiency, safety and quality of the patient's care is not compromised This note was prepared using voice recognition software and direct typing Please excuse inadvertent brand ambassador or typing errors, or uncorrected word substitutions Although every attempt has been made by the provider to proofread this document, occasional misspellings and typographical errors may still be present Due to the previous pandemic, and the use of personal protective equipment (PPE) This may decrease voice recognition accuracy Inadvertent brand ambassador errors may occur 05/05/2024 Encounter for screening for osteoporosis (ICD-10 - Z13.820) 06/22/2024 Morbid obesity (ICD-10 - E66.01) #Weight Management 06/22/2024 Will see her back for CPE in the upcoming weeks Interested in hearing evaluation, , ENT referral She is euthyroid chemically Scheduled for updated sleep study Labs reviewed She is also working with orthopedic surgery, she is getting injections in her knee Total time spent today was 30 minutes of which greater than 50% was spent on coordinating and counseling Patient has been found to be obese with a BMI of (47). Patient has class (3) obesity. We are a board certified obesity and weight management practice Of note, some information is being carried forward from prior records for informational purposes only and is being cited so that efficiency, safety and quality of the patient's care is not compromised This note was prepared using voice recognition software and direct typing Please excuse inadvertent brand ambassador or typing errors, or uncorrected word substitutions Although every attempt has been made by the provider to proofread this document, occasional misspellings and typographical errors may still be present Due to the previous pandemic, and the use of personal protective equipment (PPE) This may decrease voice recognition accuracy Inadvertent brand ambassador errors may occur 06/22/2024 BMI 45.0-49.9, adult (ICD-10 - Z68.42) #Weight Management 06/22/2024 Will see her back for CPE in the upcoming weeks Interested in hearing evaluation, , ENT referral She is euthyroid chemically Scheduled for updated sleep study Labs reviewed She is also working with orthopedic surgery, she is getting injections in her knee Total time spent today was 30 minutes of which greater than 50% was spent on coordinating and counseling Patient has been found to be obese with a BMI of (47). Patient has class (3) obesity. We are a board certified obesity and weight management practice Of note, some information is being carried forward from prior records for informational purposes only and is being cited so that efficiency, safety and quality of the patient's care is not compromised This note was prepared using voice recognition software and direct typing Please excuse inadvertent brand ambassador or typing errors, or uncorrected word substitutions Although every attempt has been made by the provider to proofread this document, occasional misspellings and typographical errors may still be present Due to the previous pandemic, and the use of personal protective equipment (PPE) This may decrease voice recognition accuracy Inadvertent brand ambassador errors may occur 06/22/2024 Dietary counseling and surveillance (ICD-10 - Z71.3) #Weight Management 06/22/2024 Will see her back for CPE in the upcoming weeks Interested in hearing evaluation, , ENT referral She is euthyroid chemically Scheduled for updated sleep study Labs reviewed She is also working with orthopedic surgery, she is getting injections in her knee Total time spent today was 30 minutes of which greater than 50% was spent on coordinating and counseling Patient has been found to be obese with a BMI of (47). Patient has class (3) obesity. We are a board certified obesity and weight management practice Of note, some information is being carried forward from prior records for informational purposes only and is being cited so that efficiency, safety and quality of the patient's care is not compromised This note was prepared using voice recognition software and direct typing Please excuse inadvertent brand ambassador or typing errors, or uncorrected word substitutions Although every attempt has been made by the provider to proofread this document, occasional misspellings and typographical errors may still be present Due to the previous pandemic, and the use of personal protective equipment (PPE) This may decrease voice recognition accuracy Inadvertent brand ambassador errors may occur 05/05/2024 BMI 45.0-49.9, adult (ICD-10 - Z68.42) Acute Concerns/Problem List: 05/05/2024 She continues to follow with endocrinology and her PCP to follow her thyroid levels closely as she is on methimazole FMLA paperwork was completed today She is euthyroid chemically _update sleep study Labs reviewed She is also working with orthopedic surgery, she is getting injections in her knee They are holding off on surgery until last resort Total time spent today was 30 minutes of which greater than 50% was spent on coordinating and counseling Patient has been found to be obese with a BMI of (47). Patient has class (3) obesity. We are a board certified obesity and weight management practice Of note, some information is being carried forward from prior records for informational purposes only and is being cited so that efficiency, safety and quality of the patient's care is not compromised This note was prepared using voice recognition software and direct typing Please excuse inadvertent brand ambassador or typing errors, or uncorrected word substitutions Although every attempt has been made by the provider to proofread this document, occasional misspellings and typographical errors may still be present Due to the previous pandemic, and the use of personal protective equipment (PPE) This may decrease voice recognition accuracy Inadvertent brand ambassador errors may occur 03/17/2024 BMI 45.0-49.9, adult [...] minimum of 6 months The most recent [place] [employer] of clinical endocrinologists and [place] [employer] endocrinology guidelines recommend patients who [...] software and direct typing Please excuse inadvertent brand ambassador or typing errors, or uncorrected word substitutions Although every attempt has been made by the provider to proofread this document, occasional misspellings and typographical errors may still be present Due to the previous pandemic, and the use of personal protective equipment (PPE) This may decrease voice recognition accuracy Inadvertent brand ambassador errors may occur 12/18/2023 BMI 45.0-49.9, adult (ICD-10 - Z68.42) #Weight Management 12/18/2023 Labs reviewed from [facility] September 2023 thriving Given ongoing weight loss this may be a recurrent problem until her weight stabilizes 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 deboning team leader and rechecking labs every 4 weeks or [...] minimum of 6 months The most recent [place] [employer] of clinical endocrinologists and [place] [employer] endocrinology guidelines recommend patients who [...] software and direct typing Please excuse inadvertent brand ambassador or typing errors, or uncorrected word substitutions Although every attempt has been made by the provider to proofread this document, occasional misspellings and typographical errors may still be present Due to the previous pandemic, and the use of personal protective equipment (PPE) This may decrease voice recognition accuracy Inadvertent brand ambassador errors may occur 10/16/2023 BMI 45.0-49.9, adult (ICD-10 - Z68.42) #Weight Management 10/16/2023 Labs reviewed from [facility] September 2023 thriving Given ongoing weight loss this may be a recurrent problem until her weight stabilizes 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 deboning team leader and rechecking labs every 4 weeks or [...] minimum of 6 months The most recent [place] [employer] of clinical endocrinologists and [place] [employer] endocrinology guidelines recommend patients who [...] track activity level. Consider using apps like SingOn, myfitnesspal, lose it, stick as needed for self-monitoring and weight management. Consider group exercises. Consider hiring a personal banking representative. Regular exercise is carvalho to sustainable [...] counseling and psychiatry and Dr Andres at [facility]. We would like to cover regular topics [...] software and direct typing Please excuse inadvertent brand ambassador or typing errors, or uncorrected word substitutions Although every attempt has been made by the provider to proofread this document, occasional misspellings and typographical errors may still be present Due to the previous pandemic, and the use of personal protective equipment (PPE) This may decrease voice recognition accuracy Inadvertent brand ambassador errors may occur 08/07/2023 Dietary counseling and surveillance (ICD-10 - Z71.3) #Weight Management 08/07/2023 thriving Thyroid function is very inconsistent and sporadic at the moment which can alter and hinder weight loss 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 deboning team leader and rechecking labs every 4 weeks or [...] minimum of 6 months The most recent [place] [employer]ocrinologists and [place] [employer] guidelines recommend patients who [...] track activity level. Consider using apps like SingOn, .[employer] Dom[employer]inepal, lose it, stick as needed for self-monitoring and weight management. Consider group exercises. Consider hiring a personal banking representative. Regular exercise is carvalho to sustainable [...] counseling and psychiatry and Dr Andres at [facility]. We would like to cover regular topics [...] software and direct typing Please excuse inadvertent brand ambassador or typing errors, or uncorrected word substitutions Although every attempt has been made by the provider to proofread this document, occasional misspellings and typographical errors may still be present Due to the previous pandemic, and the use of personal protective equipment (PPE) This may decrease voice recognition accuracy Inadvertent brand ambassador errors may occur 10/16/2023 Dietary counseling and surveillance (ICD-10 - Z71.3) #Weight Management 10/16/2023 Labs reviewed from [facility] September 2023 thriving Given ongoing weight loss this may be a recurrent problem until her weight stabilizes 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 deboning team leader and rechecking labs every 4 weeks or [...] minimum of 6 months The most recent [place] [employer]ocrinologists and [place] [employer] guidelines recommend patients who [...] track activity level. Consider using apps like SingOn, myfitnesspal, lose it, stick as needed for self-monitoring and weight management. Consider group exercises. Consider hiring a personal banking representative. Regular exercise is carvalho to sustainable [...] counseling and psychiatry and Dr Andres at [facility]. We would like to cover regular topics [...] software and direct typing Please excuse inadvertent brand ambassador or typing errors, or uncorrected word substitutions Although every attempt has been made by the provider to proofread this document, occasional misspellings and typographical errors may still be present Due to the previous pandemic, and the use of personal protective equipment (PPE) This may decrease voice recognition accuracy Inadvertent brand ambassador errors may occur 08/07/2023 Type 2 diabetes mellitus without complication, without long-term current use of insulin (ICD-10 - E11.9) #Weight Management 08/07/2023 thriving Thyroid function is very inconsistent and sporadic at the moment which can alter and hinder weight loss 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 deboning team leader and rechecking labs every 4 weeks or [...] minimum of 6 months The most recent [place] [employer]ocrinologists and [place] [employer] guidelines recommend patients who [...] track activity level. Consider using apps like SingOn, myfitnesspal, lose it, stick as needed for self-monitoring and weight management. Consider group exercises. Consider hiring a personal banking representative. Regular exercise is carvalho to sustainable [...] about local counseling and psychiatry and Dr Anders at [facility]. We would like to cover regular topics [...] software and direct typing Please excuse inadvertent brand ambassador or typing errors, or uncorrected word substitutions Although every attempt has been made by the provider to proofread this document, occasional misspellings and typographical errors may still be present Due to the previous pandemic, and the use of personal protective equipment (PPE) This may decrease voice recognition accuracy Inadvertent brand ambassador errors may occur 12/18/2023 Dietary counseling and surveillance (ICD-10 - Z71.3) #Weight Management 12/18/2023 Labs reviewed from [facility] September 2023 thriving Given ongoing weight loss this may be a recurrent problem until her weight stabilizes 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 deboning team leader and rechecking labs every 4 weeks or [...] minimum of 6 months The most recent [place] [employer]ocrinologists and [place] [employer] guidelines recommend patients who [...] software and direct typing Please excuse inadvertent brand ambassador or typing errors, or uncorrected word substitutions Although every attempt has been made by the provider to proofread this document, occasional misspellings and typographical errors may still be present Due to the previous pandemic, and the use of personal protective equipment (PPE) This may decrease voice recognition accuracy Inadvertent brand ambassador errors may occur 03/17/2024 Dietary counseling and [...] minimum of 6 months The most recent [place] [employer] endocrinologists and [place] [employer] guidelines recommend patients who [...] software and direct typing Please excuse inadvertent brand ambassador or typing errors, or uncorrected word substitutions Although every attempt has been made by the provider to proofread this document, occasional misspellings and typographical errors may still be present Due to the previous pandemic, and the use of personal protective equipment (PPE) This may decrease voice recognition accuracy Inadvertent brand ambassador errors may occur 05/05/2024 Dietary counseling and surveillance (ICD-10 - Z71.3) Acute Concerns/Problem List: 05/05/2024 She continues to follow with endocrinology and her PCP to follow her thyroid levels closely as she is on methimazole FMLA paperwork was completed today She is euthyroid chemically _update sleep study Labs reviewed She is also working with orthopedic surgery, she is getting injections in her knee They are holding off on surgery until last resort Total time spent today was 30 minutes of which greater than 50% was spent on coordinating and counseling Patient has been found to be obese with a BMI of (47). Patient has class (3) obesity. We are a board certified obesity and weight management practice Of note, some information is being carried forward from prior records for informational purposes only and is being cited so that efficiency, safety and quality of the patient's care is not compromised This note was prepared using voice recognition software and direct typing Please excuse inadvertent brand ambassador or typing errors, or uncorrected word substitutions Although every attempt has been made by the provider to proofread this document, occasional misspellings and typographical errors may still be present Due to the previous pandemic, and the use of personal protective equipment (PPE) This may decrease voice recognition accuracy Inadvertent brand ambassador errors may occur 06/22/2024 Type 2 diabetes mellitus without complication, without long-term current use of insulin (ICD-10 - E11.9) #Weight Management 06/22/2024 Will see her back for CPE in the upcoming weeks Interested in hearing evaluation, , ENT referral She is euthyroid chemically Scheduled for updated sleep study Labs reviewed She is also working with orthopedic surgery, she is getting injections in her knee Total time spent today was 30 minutes of which greater than 50% was spent on coordinating and counseling Patient has been found to be obese with a BMI of (47). Patient has class (3) obesity. We are a board certified obesity and weight management practice Of note, some information is being carried forward from prior records for informational purposes only and is being cited so that efficiency, safety and quality of the patient's care is not compromised This note was prepared using voice recognition software and direct typing Please excuse inadvertent brand ambassador or typing errors, or uncorrected word substitutions Although every attempt has been made by the provider to proofread this document, occasional misspellings and typographical errors may still be present Due to the previous pandemic, and the use of personal protective equipment (PPE) This may decrease voice recognition accuracy Inadvertent brand ambassador errors may occur 06/22/2024 Graves disease (ICD-10 - E05.00) #Weight Management 06/22/2024 Will see her back for CPE in the upcoming weeks Interested in hearing evaluation, , ENT referral She is euthyroid chemically Scheduled for updated sleep study Labs reviewed She is also working with orthopedic surgery, she is getting injections in her knee Total time spent today was 30 minutes of which greater than 50% was spent on coordinating and counseling Patient has been found to be obese with a BMI of (47). Patient has class (3) obesity. We are a board certified obesity and weight management practice Of note, some information is being carried forward from prior records for informational purposes only and is being cited so that efficiency, safety and quality of the patient's care is not compromised This note was prepared using voice recognition software and direct typing Please excuse inadvertent brand ambassador or typing errors, or uncorrected word substitutions Although every attempt has been made by the provider to proofread this document, occasional misspellings and typographical errors may still be present Due to the previous pandemic, and the use of personal protective equipment (PPE) This may decrease voice recognition accuracy Inadvertent brand ambassador errors may occur 05/05/2024 Type 2 diabetes mellitus without complication, without long-term current use of insulin (ICD-10 - E11.9) Acute Concerns/Problem List: 05/05/2024 She continues to follow with endocrinology and her PCP to follow her thyroid levels closely as she is on methimazole FMLA paperwork was completed today She is euthyroid chemically _update sleep study Labs reviewed She is also working with orthopedic surgery, she is getting injections in her knee They are holding off on surgery until last resort Total time spent today was 30 minutes of which greater than 50% was spent on coordinating and counseling Patient has been found to be obese with a BMI of (47). Patient has class (3) obesity. We are a board certified obesity and weight management practice Of note, some information is being carried forward from prior records for informational purposes only and is being cited so that efficiency, safety and quality of the patient's care is not compromised This note was prepared using voice recognition software and direct typing Please excuse inadvertent brand ambassador or typing errors, or uncorrected word substitutions Although every attempt has been made by the provider to proofread this document, occasional misspellings and typographical errors may still be present Due to the previous pandemic, and the use of personal protective equipment (PPE) This may decrease voice recognition accuracy Inadvertent brand ambassador errors may occur 12/18/2023 Type 2 diabetes mellitus without complication, without long-term current use of insulin (ICD-10 - E11.9) #Weight Management 12/18/2023 Labs reviewed from [facility] September 2023 thriving Given ongoing weight loss this may be a recurrent problem until her weight stabilizes 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 deboning team leader and rechecking labs every 4 weeks or [...] minimum of 6 months The most recent [place] [employer] endocrinologists and [place] [employer] guidelines recommend patients who [...] software and direct typing Please excuse inadvertent brand ambassador or typing errors, or uncorrected word substitutions Although every attempt has been made by the provider to proofread this document, occasional misspellings and typographical errors may still be present Due to the previous pandemic, and the use of personal protective equipment (PPE) This may decrease voice recognition accuracy Inadvertent brand ambassador errors may occur 03/17/2024 Type 2 diabetes [...] minimum of 6 months The most recent [place] [employer] endocrinologists and [place] [employer] guidelines recommend patients who [...] software and direct typing Please excuse inadvertent brand ambassador or typing errors, or uncorrected word substitutions Although every attempt has been made by the provider to proofread this document, occasional misspellings and typographical errors may still be present Due to the previous pandemic, and the use of personal protective equipment (PPE) This may decrease voice recognition accuracy Inadvertent brand ambassador errors may occur 10/16/2023 Type 2 diabetes mellitus without complication, without long-term current use of insulin (ICD-10 - E11.9) #Weight Management 10/16/2023 Labs reviewed from [facility] September 2023 thriving Given ongoing weight loss this may be a recurrent problem until her weight stabilizes 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 deboning team leader and rechecking labs every 4 weeks or [...] minimum of 6 months The most recent [place] [employer] endocrinologists and [place] [employer] guidelines recommend patients who [...] track activity level. Consider using apps like SingOn, [employer], lose it, stick as needed for self-monitoring and weight management. Consider group exercises. Consider hiring a personal banking representative. Regular exercise is carvalho to sustainable [...] counseling and psychiatry and Dr Andres at [facility]. We would like to cover regular topics [...] software and direct typing Please excuse inadvertent brand ambassador or typing errors, or uncorrected word substitutions Although every attempt has been made by the provider to proofread this document, occasional misspellings and typographical errors may still be present Due to the previous pandemic, and the use of personal protective equipment (PPE) This may decrease voice recognition accuracy Inadvertent brand ambassador errors may occur 08/07/2023 Graves disease (ICD-10 - E05.00) #Weight Management 08/07/2023 thriving Thyroid function is very inconsistent and sporadic at the moment which can alter and hinder weight loss 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 deboning team leader and rechecking labs every 4 weeks or [...] minimum of 6 months The most recent [place] [employer] endocrinologists and [place] [employer] guidelines recommend patients who [...] track activity level. Consider using apps like SingOn, myfitnesspal, lose it, stick as needed for self-monitoring and weight management. Consider group exercises. Consider hiring a personal banking representative. Regular exercise is carvalho to sustainable [...] counseling and psychiatry and Dr Andres at [facility]. We would like to cover regular topics [...] software and direct typing Please excuse inadvertent brand ambassador or typing errors, or uncorrected word substitutions Although every attempt has been made by the provider to proofread this document, occasional misspellings and typographical errors may still be present Due to the previous pandemic, and the use of personal protective equipment (PPE) This may decrease voice recognition accuracy Inadvertent brand ambassador errors may occur 08/07/2023 Chronic anticoagulation (ICD-10 - Z79.01) #Weight Management 08/07/2023 thriving Thyroid function is very inconsistent and sporadic at the moment which can alter and hinder weight loss 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 deboning team leader and rechecking labs every 4 weeks or [...] minimum of 6 months The most recent [place] [employer] clinical endocrinologists and [place] [employer]in[employer] guidelines recommend patients who [...] track activity level. Consider using apps like [employer]UR[employer], myComecerpal, lose it, stick as needed for self-monitoring and weight management. Consider group exercises. Consider hiring a personal banking representative. Regular exercise is carvalho to sustainable [...] counseling and psychiatry and Dr Andres at [facility]. We would like to cover regular topics [...] software and direct typing Please excuse inadvertent brand ambassador or typing errors, or uncorrected word substitutions Although every attempt has been made by the provider to proofread this document, occasional misspellings and typographical errors may still be present Due to the previous pandemic, and the use of personal protective equipment (PPE) This may decrease voice recognition accuracy Inadvertent brand ambassador errors may occur 10/16/2023 Graves disease (ICD-10 - E05.00) #Weight Management 10/16/2023 Labs reviewed from [facility] September 2023 thriving Given ongoing weight loss this may be a recurrent problem until her weight stabilizes 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 deboning team leader and rechecking labs every 4 weeks or [...] minimum of 6 months The most recent [place] [employer] clinical endocrinologists and [place] [employer] guidelines recommend patients who [...] track activity level. Consider using apps like SingOn, myfitBitWinepal, lose it, stick as needed for self-monitoring and weight management. Consider group exercises. Consider hiring a personal banking representative. Regular exercise is carvalho to sustainable [...] counseling and psychiatry and Dr Andres at [facility]. We would like to cover regular topics [...] software and direct typing Please excuse inadvertent brand ambassador or typing errors, or uncorrected word substitutions Although every attempt has been made by the provider to proofread this document, occasional misspellings and typographical errors may still be present Due to the previous pandemic, and the use of personal protective equipment (PPE) This may decrease voice recognition accuracy Inadvertent brand ambassador errors may occur 03/17/2024 Graves disease (ICD-10 [...] minimum of 6 months The most recent [place] [employer] endocrinologists and [place] [employer] guidelines recommend patients who [...] software and direct typing Please excuse inadvertent brand ambassador or typing errors, or uncorrected word substitutions Although every attempt has been made by the provider to proofread this document, occasional misspellings and typographical errors may still be present Due to the previous pandemic, and the use of personal protective equipment (PPE) This may decrease voice recognition accuracy Inadvertent brand ambassador errors may occur 12/18/2023 Graves disease (ICD-10 - E05.00) #Weight Management 12/18/2023 Labs reviewed from [facility] September 2023 thriving Given ongoing weight loss this may be a recurrent problem until her weight stabilizes 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 deboning team leader and rechecking labs every 4 weeks or [...] minimum of 6 months The most recent [place] [employer] clinical endocrinologists and [place] [employer] guidelines recommend patients who [...] software and direct typing Please excuse inadvertent brand ambassador or typing errors, or uncorrected word substitutions Although every attempt has been made by the provider to proofread this document, occasional misspellings and typographical errors may still be present Due to the previous pandemic, and the use of personal protective equipment (PPE) This may decrease voice recognition accuracy Inadvertent brand ambassador errors may occur 05/05/2024 Graves disease (ICD-10 - E05.00) Acute Concerns/Problem List: 05/05/2024 She continues to follow with endocrinology and her PCP to follow her thyroid levels closely as she is on methimazole FMLA paperwork was completed today She is euthyroid chemically _update sleep study Labs reviewed She is also working with orthopedic surgery, she is getting injections in her knee They are holding off on surgery until last resort Total time spent today was 30 minutes of which greater than 50% was spent on coordinating and counseling Patient has been found to be obese with a BMI of (47). Patient has class (3) obesity. We are a board certified obesity and weight management practice Of note, some information is being carried forward from prior records for informational purposes only and is being cited so that efficiency, safety and quality of the patient's care is not compromised This note was prepared using voice recognition software and direct typing Please excuse inadvertent brand ambassador or typing errors, or uncorrected word substitutions Although every attempt has been made by the provider to proofread this document, occasional misspellings and typographical errors may still be present Due to the previous pandemic, and the use of personal protective equipment (PPE) This may decrease voice recognition accuracy Inadvertent brand ambassador errors may occur 06/22/2024 Chronic anticoagulation (ICD-10 - Z79.01) #Weight Management 06/22/2024 Will see her back for CPE in the upcoming weeks Interested in hearing evaluation, , ENT referral She is euthyroid chemically Scheduled for updated sleep study Labs reviewed She is also working with orthopedic surgery, she is getting injections in her knee Total time spent today was 30 minutes of which greater than 50% was spent on coordinating and counseling Patient has been found to be obese with a BMI of (47). Patient has class (3) obesity. We are a board certified obesity and weight management practice Of note, some information is being carried forward from prior records for informational purposes only and is being cited so that efficiency, safety and quality of the patient's care is not compromised This note was prepared using voice recognition software and direct typing Please excuse inadvertent brand ambassador or typing errors, or uncorrected word substitutions Although every attempt has been made by the provider to proofread this document, occasional misspellings and typographical errors may still be present Due to the previous pandemic, and the use of personal protective equipment (PPE) This may decrease voice recognition accuracy Inadvertent brand ambassador errors may occur 06/22/2024 PAF (paroxysmal atrial fibrillation) (ICD-10 - I48.0) #Weight Management 06/22/2024 Will see her back for CPE in the upcoming weeks Interested in hearing evaluation, , ENT referral She is euthyroid chemically Scheduled for updated sleep study Labs reviewed She is also working with orthopedic surgery, she is getting injections in her knee Total time spent today was 30 minutes of which greater than 50% was spent on coordinating and counseling Patient has been found to be obese with a BMI of (47). Patient has class (3) obesity. We are a board certified obesity and weight management practice Of note, some information is being carried forward from prior records for informational purposes only and is being cited so that efficiency, safety and quality of the patient's care is not compromised This note was prepared using voice recognition software and direct typing Please excuse inadvertent brand ambassador or typing errors, or uncorrected word substitutions Although every attempt has been made by the provider to proofread this document, occasional misspellings and typographical errors may still be present Due to the previous pandemic, and the use of personal protective equipment (PPE) This may decrease voice recognition accuracy Inadvertent brand ambassador errors may occur 03/17/2024 Chronic anticoagulation (ICD-10 [...] minimum of 6 months The most recent [place] [employer] of clinical endocrinologists and [employer] [employer] guidelines recommend patients who [...] software and direct typing Please excuse inadvertent brand ambassador or typing errors, or uncorrected word substitutions Although every attempt has been made by the provider to proofread this document, occasional misspellings and typographical errors may still be present Due to the previous pandemic, and the use of personal protective equipment (PPE) This may decrease voice recognition accuracy Inadvertent brand ambassador errors may occur 05/05/2024 Chronic anticoagulation (ICD-10 - Z79.01) Acute Concerns/Problem List: 05/05/2024 She continues to follow with endocrinology and her PCP to follow her thyroid levels closely as she is on methimazole FMLA paperwork was completed today She is euthyroid chemically _update sleep study Labs reviewed She is also working with orthopedic surgery, she is getting injections in her knee They are holding off on surgery until last resort Total time spent today was 30 minutes of which greater than 50% was spent on coordinating and counseling Patient has been found to be obese with a BMI of (47). Patient has class (3) obesity. We are a board certified obesity and weight management practice Of note, some information is being carried forward from prior records for informational purposes only and is being cited so that efficiency, safety and quality of the patient's care is not compromised This note was prepared using voice recognition software and direct typing Please excuse inadvertent brand ambassador or typing errors, or uncorrected word substitutions Although every attempt has been made by the provider to proofread this document, occasional misspellings and typographical errors may still be present Due to the previous pandemic, and the use of personal protective equipment (PPE) This may decrease voice recognition accuracy Inadvertent brand ambassador errors may occur 12/18/2023 Chronic anticoagulation (ICD-10 - Z79.01) #Weight Management 12/18/2023 Labs reviewed from [facility] September 2023 thriving Given ongoing weight loss this may be a recurrent problem until her weight stabilizes 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 deboning team leader and rechecking labs every 4 weeks or [...] minimum of 6 months The most recent [place] [employer]ocrinologists and [employer] [employer] guidelines recommend patients who [...] software and direct typing Please excuse inadvertent brand ambassador or typing errors, or uncorrected word substitutions Although every attempt has been made by the provider to proofread this document, occasional misspellings and typographical errors may still be present Due to the previous pandemic, and the use of personal protective equipment (PPE) This may decrease voice recognition accuracy Inadvertent brand ambassador errors may occur 10/16/2023 Chronic anticoagulation (ICD-10 - Z79.01) #Weight Management 10/16/2023 Labs reviewed from [facility] September 2023 thriving Given ongoing weight loss this may be a recurrent problem until her weight stabilizes 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 deboning team leader and rechecking labs every 4 weeks or [...] minimum of 6 months The most recent [place] [employer]ocrinologists and [employer] [employer] guidelines recommend patients who [...] track activity level. Consider using apps like SingOn, myfitnesspal, lose it, stick as needed for self-monitoring and weight management. Consider group exercises. Consider hiring a personal banking representative. Regular exercise is carvalho to sustainable [...] counseling and psychiatry and Dr Andres at [facility]. We would like to cover regular topics [...] software and direct typing Please excuse inadvertent brand ambassador or typing errors, or uncorrected word substitutions Although every attempt has been made by the provider to proofread this document, occasional misspellings and typographical errors may still be present Due to the previous pandemic, and the use of personal protective equipment (PPE) This may decrease voice recognition accuracy Inadvertent brand ambassador errors may occur 08/07/2023 PAF (paroxysmal atrial fibrillation) (ICD-10 - I48.0) #Weight Management 08/07/2023 thriving Thyroid function is very inconsistent and sporadic at the moment which can alter and hinder weight loss 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 deboning team leader and rechecking labs every 4 weeks or [...] minimum of 6 months The most recent [place] [employer]ocrinologists and [place] [employer] guidelines recommend patients who [...] track activity level. Consider using apps like SingOn, myfitnesspal, lose it, stick as needed for self-monitoring and weight management. Consider group exercises. Consider hiring a personal banking representative. Regular exercise is carvalho to sustainable [...] counseling and psychiatry and Dr Andres at [facility]. We would like to cover regular topics [...] software and direct typing Please excuse inadvertent brand ambassador or typing errors, or uncorrected word substitutions Although every attempt has been made by the provider to proofread this document, occasional misspellings and typographical errors may still be present Due to the previous pandemic, and the use of personal protective equipment (PPE) This may decrease voice recognition accuracy Inadvertent brand ambassador errors may occur 08/07/2023 NICHOLE (obstructive sleep apnea) (ICD-10 - G47.33) #Weight Management 08/07/2023 thriving Thyroid function is very inconsistent and sporadic at the moment which can alter and hinder weight loss 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 deboning team leader and rechecking labs every 4 weeks or [...] minimum of 6 months The most recent [place] [employer]ocrinologists and [employer] [employer] guidelines recommend patients who [...] track activity level. Consider using apps like [employer], myfitnesspal, lose it, stick as needed for self-monitoring and weight management. Consider group exercises. Consider hiring a personal banking representative. Regular exercise is carvalho to sustainable [...] counseling and psychiatry and Dr Andres at [facility]. We would like to cover regular topics [...] software and direct typing Please excuse inadvertent brand ambassador or typing errors, or uncorrected word substitutions Although every attempt has been made by the provider to proofread this document, occasional misspellings and typographical errors may still be present Due to the previous pandemic, and the use of personal protective equipment (PPE) This may decrease voice recognition accuracy Inadvertent brand ambassador errors may occur 10/16/2023 PAF (paroxysmal atrial fibrillation) (ICD-10 - I48.0) #Weight Management 10/16/2023 Labs reviewed from [facility] September 2023 thriving Given ongoing weight loss this may be a recurrent problem until her weight stabilizes 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 deboning team leader and rechecking labs every 4 weeks or [...] minimum of 6 months The most recent [place] [employer]ocrinologists and [place] [employer] guidelines recommend patients who [...] track activity level. Consider using apps like SingOn, [employer], lose it, stick as needed for self-monitoring and weight management. Consider group exercises. Consider hiring a personal banking representative. Regular exercise is carvalho to sustainable [...] counseling and psychiatry and Dr Andres at [facility]. We would like to cover regular topics [...] software and direct typing Please excuse inadvertent brand ambassador or typing errors, or uncorrected word substitutions Although every attempt has been made by the provider to proofread this document, occasional misspellings and typographical errors may still be present Due to the previous pandemic, and the use of personal protective equipment (PPE) This may decrease voice recognition accuracy Inadvertent brand ambassador errors may occur 12/18/2023 PAF (paroxysmal atrial fibrillation) (ICD-10 - I48.0) #Weight Management 12/18/2023 Labs reviewed from [facility] September 2023 thriving Given ongoing weight loss this may be a recurrent problem until her weight stabilizes 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 deboning team leader and rechecking labs every 4 weeks or [...] minimum of 6 months The most recent [place] [employer]ocrinologists and [employer] [employer] guidelines recommend patients who [...] software and direct typing Please excuse inadvertent brand ambassador or typing errors, or uncorrected word substitutions Although every attempt has been made by the provider to proofread this document, occasional misspellings and typographical errors may still be present Due to the previous pandemic, and the use of personal protective equipment (PPE) This may decrease voice recognition accuracy Inadvertent brand ambassador errors may occur 03/17/2024 PAF (paroxysmal atrial [...] minimum of 6 months The most recent [place] [employer]ocrinologists and [place] [employer] guidelines recommend patients who [...] software and direct typing Please excuse inadvertent brand ambassador or typing errors, or uncorrected word substitutions Although every attempt has been made by the provider to proofread this document, occasional misspellings and typographical errors may still be present Due to the previous pandemic, and the use of personal protective equipment (PPE) This may decrease voice recognition accuracy Inadvertent brand ambassador errors may occur 05/05/2024 PAF (paroxysmal atrial fibrillation) (ICD-10 - I48.0) Acute Concerns/Problem List: 05/05/2024 She continues to follow with endocrinology and her PCP to follow her thyroid levels closely as she is on methimazole FMLA paperwork was completed today She is euthyroid chemically _update sleep study Labs reviewed She is also working with orthopedic surgery, she is getting injections in her knee They are holding off on surgery until last resort Total time spent today was 30 minutes of which greater than 50% was spent on coordinating and counseling Patient has been found to be obese with a BMI of (47). Patient has class (3) obesity. We are a board certified obesity and weight management practice Of note, some information is being carried forward from prior records for informational purposes only and is being cited so that efficiency, safety and quality of the patient's care is not compromised This note was prepared using voice recognition software and direct typing Please excuse inadvertent brand ambassador or typing errors, or uncorrected word substitutions Although every attempt has been made by the provider to proofread this document, occasional misspellings and typographical errors may still be present Due to the previous pandemic, and the use of personal protective equipment (PPE) This may decrease voice recognition accuracy Inadvertent brand ambassador errors may occur 06/22/2024 NICHOLE (obstructive sleep apnea) (ICD-10 - G47.33) #Weight Management 06/22/2024 Will see her back for CPE in the upcoming weeks Interested in hearing evaluation, , ENT referral She is euthyroid chemically Scheduled for updated sleep study Labs reviewed She is also working with orthopedic surgery, she is getting injections in her knee Total time spent today was 30 minutes of which greater than 50% was spent on coordinating and counseling Patient has been found to be obese with a BMI of (47). Patient has class (3) obesity. We are a board certified obesity and weight management practice Of note, some information is being carried forward from prior records for informational purposes only and is being cited so that efficiency, safety and quality of the patient's care is not compromised This note was prepared using voice recognition software and direct typing Please excuse inadvertent brand ambassador or typing errors, or uncorrected word substitutions Although every attempt has been made by the provider to proofread this document, occasional misspellings and typographical errors may still be present Due to the previous pandemic, and the use of personal protective equipment (PPE) This may decrease voice recognition accuracy Inadvertent brand ambassador errors may occur 05/05/2024 NICHOLE (obstructive sleep apnea) (ICD-10 - G47.33) Acute Concerns/Problem List: 05/05/2024 She continues to follow with endocrinology and her PCP to follow her thyroid levels closely as she is on methimazole FMLA paperwork was completed today She is euthyroid chemically _update sleep study Labs reviewed She is also working with orthopedic surgery, she is getting injections in her knee They are holding off on surgery until last resort Total time spent today was 30 minutes of which greater than 50% was spent on coordinating and counseling Patient has been found to be obese with a BMI of (47). Patient has class (3) obesity. We are a board certified obesity and weight management practice Of note, some information is being carried forward from prior records for informational purposes only and is being cited so that efficiency, safety and quality of the patient's care is not compromised This note was prepared using voice recognition software and direct typing Please excuse inadvertent brand ambassador or typing errors, or uncorrected word substitutions Although every attempt has been made by the provider to proofread this document, occasional misspellings and typographical errors may still be present Due to the previous pandemic, and the use of personal protective equipment (PPE) This may decrease voice recognition accuracy Inadvertent brand ambassador errors may occur 06/22/2024 Sensorineural hearing loss (SNHL) of both ears (ICD-10 - H90.3) #Weight Management 06/22/2024 Will see her back for CPE in the upcoming weeks Interested in hearing evaluation, , ENT referral She is euthyroid chemically Scheduled for updated sleep study Labs reviewed She is also working with orthopedic surgery, she is getting injections in her knee Total time spent today was 30 minutes of which greater than 50% was spent on coordinating and counseling Patient has been found to be obese with a BMI of (47). Patient has class (3) obesity. We are a board certified obesity and weight management practice Of note, some information is being carried forward from prior records for informational purposes only and is being cited so that efficiency, safety and quality of the patient's care is not compromised This note was prepared using voice recognition software and direct typing Please excuse inadvertent brand ambassador or typing errors, or uncorrected word substitutions Although every attempt has been made by the provider to proofread this document, occasional misspellings and typographical errors may still be present Due to the previous pandemic, and the use of personal protective equipment (PPE) This may decrease voice recognition accuracy Inadvertent brand ambassador errors may occur 03/17/2024 NICHLOE (obstructive sleep apnea) (ICD-10 - G47.33) #Weight [...] minimum of 6 months The most recent [place] [employer]ocrinologists and [place] [employer] guidelines recommend patients who [...] software and direct typing Please excuse inadvertent brand ambassador or typing errors, or uncorrected word substitutions Although every attempt has been made by the provider to proofread this document, occasional misspellings and typographical errors may still be present Due to the previous pandemic, and the use of personal protective equipment (PPE) This may decrease voice recognition accuracy Inadvertent brand ambassador errors may occur 12/18/2023 NICHOLE (obstructive sleep apnea) (ICD-10 - G47.33) #Weight Management 12/18/2023 Labs reviewed from [facility] September 2023 thriving Given ongoing weight loss this may be a recurrent problem until her weight stabilizes 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 deboning team leader and rechecking labs every 4 weeks or [...] minimum of 6 months The most recent [place] [employer]ocrinologists and [place] [employer] guidelines recommend patients who [...] software and direct typing Please excuse inadvertent brand ambassador or typing errors, or uncorrected word substitutions Although every attempt has been made by the provider to proofread this document, occasional misspellings and typographical errors may still be present Due to the previous pandemic, and the use of personal protective equipment (PPE) This may decrease voice recognition accuracy Inadvertent brand ambassador errors may occur 10/16/2023 NICHOLE (obstructive sleep apnea) (ICD-10 - G47.33) #Weight Management 10/16/2023 Labs reviewed from [facility] September 2023 thriving Given ongoing weight loss this may be a recurrent problem until her weight stabilizes 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 deboning team leader and rechecking labs every 4 weeks or [...] minimum of 6 months The most recent [place] [employer] endocrinologists and [place] [employer] guidelines recommend patients who [...] track activity level. Consider using apps like SingOn, myfitnesspal, lose it, stick as needed for self-monitoring and weight management. Consider group exercises. Consider hiring a personal banking representative. Regular exercise is carvalho to sustainable [...] counseling and psychiatry and Dr Andres at [facility]. We would like to cover regular topics [...] software and direct typing Please excuse inadvertent brand ambassador or typing errors, or uncorrected word substitutions Although every attempt has been made by the provider to proofread this document, occasional misspellings and typographical errors may still be present Due to the previous pandemic, and the use of personal protective equipment (PPE) This may decrease voice recognition accuracy Inadvertent brand ambassador errors may occur Plan Of Treatment Pending Test Test Name Order Date Bone Density 05/05/2024 Next Appt Details Provider Name:MADDIE REYES, 08/20/2024 08:45:00 AM, [address] [facility], [facility] [address], [place], [address], Insurance Providers Payer Name Payer Address Payer Phone Subscriber Number Group Number Insured Name Patient Relationship to Insured Coverage Start Date Coverage End Date [facility] [address] [place] [address] [phone] [id number] Corazon Cortez Self - patient is the insured Medical (General) History Medical History History ICD Code diabetes mellitus graves disease afib gastroesophageal reflux disease (GERD) hyperlipidemia asthma sleep apnea Surgical History Surgery Date(Month/Year) cholecystectomy umbilical hernia repair arthroscopic knee surgery left partial hysterectomy Hospitalization History Reason Date(Month/Year) cardioversion x 3 episodes (01/2022, 2020, 09/2019)
--- OUTSIDE RECORDS SUMMARY | 2024-07-07 13:46 | XMS_ITS ---
[facility] Address [address] [facility] [place] [address] Care Team Providers Care Firer Glost Kiln Name Role Phone Sean MCKEE, Blaire Primary Care Provider Lily Corral Unavailable [phone] Allergies Allergen (clinical drug ingredient) Drug/Non Drug [...] Active Encounters Encounter Location Date Provider Diagnosis [facility] [place] [address] 04/16/2024 Lily Toledo Plan Of Treatment Next Appt Details Provider Name:Lily freeman, 07/30/2024 09:30:00 AM, [address] [place], [address], Progress Notes * Lexi CORTEZOB: [birth year] (54 yo F)Acc No.[id number]:04/16/2024 Progress Note Patient:Corazon RAMIRES Provider:?Lily Toledo DPM :1970???Age:53 Y???Sex:Female D ate:04/16/2024 Address:[address] [place], [place] [id number] Pcp:Blaire Estrada NP Subjective: * Chief Complaints: * ???1. Dr [...] Toledo DPM Date:? Generated for Jeri hauser/Flores/Ralph on:?07/07/2024 01:45 PM EDT
--- NOTE | 2024-07-07 13:48 | MHC.OFFVIS ---
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 She is doing well with rental management trainee concerns: Vulvar itching, no longer has medication, in need of a refill. Currently sexually active. Denies any vaginal dryness or irritation. STI testing offered; she declined. Attempting to eat a healthy diet with calcium and vitamin D, has lost weight this year. Limited exercise due to joint pain. Last pap smear; 2020, Colpo 2016-LGSIL, HPV+, Pap 2020-neg. Last mammogram; 07/2023. ColoGard is UTD. Denies any family history of breast, ovarian or colon cancer. [facility] Medical History Thickened endometrium Postmenopausal bleeding History of cardioversion Morbid obesity Graves disease Diabetes PAF (paroxysmal atrial fibrillation) Surgical History Hx of cholecystectomy H/O knee surgery History of hernia repair S/P removal of left ovary Family History Father CVD (cardiovascular disease) Heart attack Mother Lung cancer Social History Household Members: Spouse Housing: Apartment Alcohol intake: former Comment: d/c from [facility] Patient Tobacco Use Status: Never used Tobacco Current occupational status: employed Current occupation: [employer], 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 Sexual orientation: Straight/Heterosexual Gender identity: Female Female Reproductive History Menstrual Age of Menarche: 7 Total pregnancies: 1 Full term: 1 Number of Living Children: 1 Date of last pap smear: 04/19/20 (neg pap and hpv) History of abnormal pap smear: Yes (5/16 +HPV 6/17 ascus +hpv 8/17 colpo KORIN 1 8/18 neg pap and hpv) Date of Mammogram: 08/07/23 (Birad 1) Review of Systems Const All systems reviewed & are unremarkable except as noted in HPI and below Reports as per HPI Eyes Reports no additional complaints ENT Reports no additional complaints Card Reports no additional complaints Resp Reports no additional complaints GI Reports as per HPI and Reports no additional complaints Reports as per HPI Musc Reports no additional complaints Skin/Breast Reports as per HPI Neuro Reports no additional complaints Psych Reports no additional complaints Endo Reports no additional complaints Chandana/Lymph Reports no additional complaints Aller/Immun Reports no additional complaints Physical Exam Vital Signs: Last Vital Signs BP 118/70 07/07/24 13:49 BMI result Body Mass Index 45.0 Const General: cooperative, healthy appearing, no acute distress, well developed and alert Orientation/consciousness: patient oriented x3 HEENT Head: Yes normal to inspection Eyes General: appearance normal, both eyes and all related structures Neck Neck: Yes normal visual inspection Thyroid: Thyroid normal Chest Chest palpation & inspection: normal inspection of the chest and other (no puckering, dimpling, peau de orange, retraction, discharge, masses) Breast/axilla inspection: normal inspection of the breasts Breast/axilla palpation: normal palpation of the breasts Resp Effort & Inspection: normal respiratory effort GI Inspection: Yes normal to inspection Palpation (GI): Soft to palpation Rectal Exam - Female: deferred Other: External: vulva-extending from periclitoral to perianal, gilbert. labia's, hypopigmentation, erythema, excoriated areas in scratch pattern. General: Yes bladder normal to palpation External Female Exam: normal external appearance and normal appearance of the urethra Speculum Exam - Vagina: normal appearance of the vagina, normal palpation, normal vaginal discharge and vagina atrophic Speculum Exam - Cervix: normal appearance of the cervix and normal palpation Bimanual exam- vagina & uterus: normal bimanual exam, normal palpation, uterine size normal, bladder normal to palpation, normal palpation and non-tender Bimanual Exam- Adnexa, other: no masses Skin General skin exam: no rashes or lesions noted Rashes: no rashes Neuro General: patient oriented x3 Cognition (Neuro): normal cognition Extrem General: Yes normal to inspection Psych Attitude: cooperative Thought process: Normal thought process present Assessment & Plan Assessment & Plan (1) Encounter for well woman exam with routine gynecological exam: Code(s): Z01.419 - Encounter for gynecological examination (general) (routine) without abnormal findings Category: Medical Plan: Discussed: Current recommendations for pap smears per ASCCP guidelines. Breast awareness, periodic self breast exams and yearly mammogram. Maintain a healthy lifestyle, well balanced diet including Calcium 1,200 mg and Vitamin D 600 IU daily, and routine exercise when possible. Contact the office with any postmenopausal bleeding. Patient verbalizes understanding and agrees to the plan of care. She was given opportunity to ask questions and all questions were answered to the best of my ability. 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 This note is constructed using voice recognition software. While every effort has been made to ensure accuracy, dermatology nurse practitioner errors may have been included. (2) Vulvar irritation: Code(s): N90.89 - Other specified noninflammatory disorders of vulva and perineum Plan Discussed skin care and treatment plan with medication, use, purpose. Recheck skin in 2 months, biopsy if indicated at that visit. The patient expressed understanding and agreement with the plan of care. All of her questions and concerns were addressed to the best of my ability. Total time I personally spent on visit and management today: ?15 minutes. Time spent included review of pertinent office notes in the electronic health record; review of laboratory and imaging results; review of personal family medical history; performing physical exam; discussing diagnosis and plan of care with the patient; documenting the encounter in the EMR. This note is constructed using voice recognition software. While every effort has been made to ensure accuracy, dermatology nurse practitioner errors may have been included. Orders: Orders MM tomosynthesis screening BI Today Z12.31 - Encounter for screening mammogram for malignant neoplasm of breast Medications: New betamethasone, augmented 0.05 % apply to the area at bedtime a thin coat, for two weeks, then every other day for two weeks and then twice a week 1 appl topical BEDTIME 45 grams 2RF Coding Level of Care Code Est Pt Level 2 (43540) Est Pt Prev Care 40-64y(51964) Diagnoses Encounter for well woman exam with routine gynecological exam Z01.419 Vulvar irritation N90.89
[2024-07-07 13:49] VITALS: BP 118/70; BMI 45.0
== END 2024-07-07 14:38 | disposition home or self-care (01) ==
LOC: HO.HWS 13:40
PROVIDERS: PCP Internal Medicine; Visit Provider Advanced Practice Midwife
DX: Z01.419 Encounter for gynecological examination (general) (routine) without abnormal findings (principal); N90.89 Other specified noninflammatory disorders of vulva and perineum
CPT/HCPCS: 99212; 99396; 99459

== ENCOUNTER 2024-07-30 06:29 | Outpatient (REF) | payer BC, SELFPAY ==
[2024-07-30 10:39] LABS: Estimated Average Glucose 111 mg/dL; Hemoglobin A1C 124.3398 umol/L; Hemoglobin A1c % 5.5 % (<6.0); Total Hemoglobin (HGBA1C) 3392.4707 umol/L
[2024-07-30 12:26] LABS: Creatinine Urine 225.76 mg/dL; Microalbum/Creatinine Ratio Ur 3.5 ug/mg cr (<30)
[2024-07-30 12:56] LABS: Anion Gap 11 (12-20); Free T4 (Free Thyroxine) 0.96 ng/dL (0.71-1.85); Thyroid Stimulating Hormone 2.21 uIU/mL (0.32-4.0)
[2024-07-30 13:08] LABS: Alanine Aminotransferase < 6 U/L (0-31); Alkaline Phosphatase 84 U/L (39-117); Aspartate Amino Transferase 18 U/L (5-31); Bilirubin Total 0.4 mg/dL (0.0-1.0); Blood Urea Nitrogen 15 mg/dL (9-16); Calcium 9.7 mg/dL (8.4-10.2); Carbon Dioxide 30 mmol/L (22-29); Chloride 106 mmol/L (96-108); Cholesterol 128 mg/dL (<200); Estimated Glomerular Filt Rate > 60; Glucose Random 97 mg/dL (60-115); HDL Cholesterol 43 mg/dL (>40); LDL Cholesterol Calculated 64 mg/dL (<100); Potassium 4.2 mmol/L (3.3-5.1); Sodium 143 mmol/L (135-145); Total Protein 6.4 g/dL (6.5-8.0); Triglycerides 105 mg/dL (<150)
[2024-07-31 07:13] LABS: Triiodothyronine T3 Free 2.9 pg/mL (2.3-4.2)
== END 2024-07-30 06:30 | disposition home or self-care (01) ==
LOC: HO.HMGCLDS 06:29
PROVIDERS: PCP Nurse Practitioner Acute Care; Visit Provider Internal Medicine
DX: E05.00 Thyrotoxicosis with diffuse goiter without thyrotoxic crisis or storm (principal); E11.42 Type 2 diabetes mellitus with diabetic polyneuropathy
CPT/HCPCS: 36415; 80053; 80061; 82043; 82570; 83036; 84439; 84443; 84481

== ENCOUNTER 2024-08-02 08:59 | Outpatient (AMB) | payer BC, SELFPAY ==
--- NOTE | 2024-08-02 09:12 | MHC.OFFVIS ---
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 Required: No Accompanied by: Self / Same As Patient Allergies No Known Allergies Allergy (Verified 07/07/24 13:49) Medication List - Last Reconciled 08/02/24 by Italo Cervantes MD acetaminophen 1,000 mg PO BEDTIME acetaminophen 650 mg PO DAILY apixaban 5 mg PO BID ascorbic acid (vitamin C) (Vitamin C) 500 mg PO DAILY atorvastatin 10 mg PO DAILY betamethasone, augmented 0.05 % 1 appl topical BEDTIME cholecalciferol (vitamin D3) (Vitamin D3) 25 mcg PO DAILY diltiazem HCl CD 240 mg PO BEDTIME 90 days flecainide 150 mg (1.5 x 100 mg) PO BID 90 days furosemide 20 mg PO DAILY 90 days magnesium oxide 400 mg PO BID mecobalamin (vitamin B12) 1,000 mcg PO DAILY metformin 500mg AM, 1000mg PM methimazole 5 mg PO Q2D naltrexone-bupropion 8-90 mg (Contrave) 2 tabs PO BID omeprazole 20 mg PO DAILY PNV 119-iron fum-folic acid 29 mg iron- 1 mg tabs PO tirzepatide (Mounjaro) 10 mg subcut QWEEK HPI Comments Details: 54-year-old female who is here for follow-up. She presented to the clinic with palpitation and was in atrial flutter. She was admitted to the hospital underwent cardioversion. She was discharged home after that on flecainide 150 mg twice a day. She is on apixaban 5 mg twice a day. She has been stable since then. Denying any symptoms currently. she was seen by EP and was advised to lose weight. She had ECG in EP office today at [facility] which showed sinus rhythm. Taking meds. She is losing weight and has been on Mounjaro with better sugar control. 11/18/2022, she returns for follow-up. She has been following with weight management program has lost 16 lb at this stage. She is looking quite focused and has cut back significantly on her sugar intake. She is denying any significant symptoms otherwise. Taking medications regularly. No palpitations on follow-up. 08/06/23: She returns for f/u. She is doing well and has no significant palpitations. She has lost significant weight with Mounjaro. Taking medications regularly. 02/11/24: She is here for follow-up. She is doing well and has no episodes of atrial fibrillation. She is on flecainide 150 mg twice a day and on Eliquis 5 mg twice a day. She is saying that she is hyperthyroid again and is closely following with endocrinology in [place]. 08/02/2024: She is here for follow-up. Denying any chest pain or shortness of breath. No palpitations. She was losing weight with Mounjaro. She has right knee arthritis which limits her mobility. Blood pressure is well controlled. [facility] Medical History Thickened endometrium Postmenopausal bleeding History of cardioversion Morbid obesity Graves disease Diabetes PAF (paroxysmal atrial fibrillation) Surgical History Hx of cholecystectomy H/O knee surgery History of hernia repair S/P removal of left ovary Family History Father CVD (cardiovascular disease) Heart attack Mother Lung cancer Social History Household Members: Spouse Housing: Apartment Alcohol intake: former Comment: d/c from [facility] Patient Tobacco Use Status: Never used Tobacco Current occupational status: employed 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[employer], 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 Sexual orientation: Straight/Heterosexual Gender identity: Female Female Reproductive History Menstrual Age of Menarche: 7 Review of Systems Const Denies chills, Denies fatigue, Denies fever(s), Denies frequent falls, Denies weakness, Denies weight gain and Denies weight loss ENT Denies dizziness Card Denies chest pain, Denies leg edema, Denies lightheadedness, Denies palpitations, Denies dyspnea and Denies dyspnea on exertion Resp Denies cough, Denies dyspnea and Denies dyspnea on exertion GI Denies hematochezia Musc Denies abnormal gait, Denies muscle weakness, Denies numbness, Denies radiating pain into limb and Denies tingling Neuro Denies abnormal gait, Denies dizziness, Denies frequent falls, Denies numbness, Denies tingling and Denies weakness Endo Denies fatigue and Denies palpitations Physical Exam Vital Signs: Last Vital Signs Pulse 79 08/02/24 09:17 BP 120/72 08/02/24 09:17 BMI result Body Mass Index 44.7 GENERAL APPEARANCE: in no acute distress, pleasant. NECK: no carotid bruit, no jugular venous distention. SKIN: no suspicious lesions, warm and dry. HEART: no murmurs, regular rate and rhythm. LUNGS: clear to auscultation bilaterally. ABDOMEN: soft, nontender. EXTREMITIES: no edema. PERIPHERAL PULSES: equal. NEUROLOGIC: No gross deficits, AAO X 3 Office Procedures EKG Details: Sinus rhythm 79 beats per minute, normal axis, low voltage, poor R-wave progression, QTC 474 milliseconds. [id number], Complete Assessment & Plan Assessment & Plan (1) PAF (paroxysmal atrial fibrillation): Code(s): I48.0 - Paroxysmal atrial fibrillation Category: Medical (2) Atrial flutter: Code(s): I48.92 - Unspecified atrial flutter Category: Medical (3) Graves disease: Code(s): E05.00 - Thyrotoxicosis with diffuse goiter without thyrotoxic crisis or storm Category: Medical (4) Peripheral edema: Code(s): R60.9 - Edema, unspecified Category: Medical (5) Morbid obesity: Code(s): E66.01 - Morbid (severe) obesity due to excess calories Category: Medical Plan Pleasant 54-year-old female who is here for follow-up. She has known history of atrial fibrillation and atrial flutter in the past. She underwent cardioversion in the past and has been on flecainide 150 mg twice a day. She was referred for ablation but was advised to lose weight. She is on Mounjaro and has been losing weight. She can not exercise significantly due to right knee arthritis. We discussed about management options including surgery versus platelet rich plasma. I have advised her to consider doing PRP if she does not wish to undergo surgery currently. Doing well from CV viewpoint. Continue flecainide and diltiazem. She will see us back in 6 months. Thank you for allowing me to participate in the care of your patient. Please feel free to contact me if you have any questions. Medications: Refilled flecainide 150 mg (1.5 x 100 mg) PO BID 90 days 270 tabs 3RF Coding Level of Care Code Est Pt Level 4 (39750) Diagnoses PAF (paroxysmal atrial fibrillation) I48.0 Atrial flutter I48.92 Graves disease E05.00 Peripheral edema R60.9 Morbid obesity E66.01 CPT Codes EKG - CPT: 59612-[id number], Complete ([id number])
--- OUTSIDE RECORDS SUMMARY | 2024-08-02 09:16 | XMS_ITS | Patient Health Record ---
Author Organization [facility] Address [address] [place] [address] Care Team Providers [facility] Earth Observations Chief Scientist Name Role Phone MADDIE REYES Unavailable [phone] Allergies Allergen (clinical drug ingredient) Drug/Non Drug Allergy documented on EMR Reaction Allergy Type Onset Date Status ibuprofen Ibuprofen Blood thinner Drug Allergy Act indigo Results Component Value Reference Range Notes BD BONE DENSITY DXA AXIAL SK ELETON Reviewed date:05/20/2024 08:56:43 AM Interpretation: Performing Lab: Notes/Report: Note See Note [facility], a member of [facility] Patient Name: CORAZON CORTEZ Date of : 1970 Reason for Exam: SCREENING Exam Date: 05/20/2024 [id number] EST Report Status: Final Ordering Provider: MADDIE [...] probability of hip fracture of 0.0%. Code 86366 -------- FINAL REPOR T -------- Dictated By: Rah Chamberlain Dictated Date: 05/20 08:31 ET Assigned Physician: Rah Chamberlain Reviewed and Electro nically Signed By: Rah Chamberlain Signed Date: 025 08:32 ET Workstation ID: [id number] Transcribed By: Self Edit Transcribed Date: 05/20/2024 08:31 ET Reason For Referral Reason Home Sleep Study ([facility]) Diagnosis 1 Obstructive apnea (G 47.33) Referral Organization [facility] [address] Referring Provider First Name MADDIE Referring Provider Last Name AMY Referring Provider Speciality Internal M edicine Referred Provider Specialty Pulmonology General Notes Alba Vail 01/2025 09:38:15 AM > Pt given phone [phone] to call and make an appt and referral form faxed to [phone] Clinical Notes Ursula Sanon 06/28 12:26:35 PM >can you resend referral to [facility] needs a insurance referral, Gomez Aquino 07/05/2024 09:43:16 AM > refaxed to [facility] Referral Priority Routine Medications Medication SIG [...] Status Risk Notes Problem Screening for osteoporosis (426949189) Encounter for screening for osteoporosis (Z13.820) Active confirmed Problem 243863260 Morbid obesity (E66.01) Active confirmed Problem 89389836 NICHOLE (obstructive sleep apnea) (G47.33) Active confirmed Problem 627792245 Chronic anticoagulation (Z79.01) Active confirmed Problem 805977897 Type 2 diabetes mellitus without complication, without long-term current use of insulin (E11.9) Active confirmed Problem 154697192 BMI 50.0-59.9, adult (Z68.43) Active confirmed Problem 250986873 Graves disease (E05.00) Active confirmed Problem 637850640 PAF (paroxysmal atrial fibrillation) (I48.0) Active confirmed Problem 537048928 BMI 45.0-49.9, adult (Z68.42) Active confirmed Problem 539218603 Sensorineural hearing loss (SNHL) of both ears (H90.3) Active confirmed Problem Obstructive sleep apnea syndrome (02340733) Obstructive apnea (G47.33) Active confirmed Vital Signs Heart Rate 95 /min 06/22/2024 Oximetry 98 % 06/22/2024 Blood pressure diastolic 64 mm Hg 06/22/2024 Height 66 in 06/22/2024 Blood pressure systolic 126 mm Hg 06/22/2024 Weight 292.3 lbs 06/22/2024 BMI 47.17 kg/m2 06/22/2024 Encounters Encounter Location Date Provider Diagnosis [facility] [address] [address] 08/07/2023 MADDIE REYES Morbid obesity E66.0 1 ; BMI 45.0-49.9, adult Z68.42 ; Dietary counseling and surveillance Z71.3 ; Type 2 diabetes mellitus without complication, without long-term current use of insulin E11.9 ; Graves disease E05.00 ; Chronic anticoagulation Z79.01 ; PAF (paroxysmal atrial fibrillation) I48.0 and NICHOLE (obstructive sleep apnea) G47.33 [facility] [address] [address] 10/16/2023 MADDIE REYES Morbid obesity E66.0 1 ; BMI 45.0-49.9, adult Z68.42 ; Dietary counseling and surveillance Z71.3 ; Type 2 diabetes mellitus without complication, without long-term current use of insulin E11.9 ; Graves disease E05.00 ; Chronic anticoagulation Z79.01 ; PAF (paroxysmal atrial fibrillation) I48.0 and NICHOLE (obstructive sleep apnea) G47.33 [facility] [address] [address] 12/18/2023 MADDIE REYES Morbid obesity E66.0 1 ; BMI 45.0-49.9, adult Z68.42 ; Dietary counseling and surveillance Z71.3 ; Type 2 diabetes mellitus without complication, without long-term current use of insulin E11.9 ; Graves disease E05.00 ; Chronic anticoagulation Z79.01 ; PAF (paroxysmal atrial fibrillation) I48.0 and NICHOLE (obstructive sleep apnea) G47.33 [facility] [address] [address] 03/17/2024 MADDIE REYES Morbid obesity E66.0 1 ; BMI 45.0-49.9, adult Z68.42 ; Dietary counseling and surveillance Z71.3 ; Type 2 diabetes mellitus without complication, without long-term current use of insulin E11.9 ; Graves disease E05.00 ; Chronic anticoagulation Z79.01 ; PAF (paroxysmal atrial fibrillation) I48.0 and NICHOLE (obstructive sleep apnea) G47.33 [facility] [address] [address] 05/05/2024 MADDIECARMEN BRISENOT Morbid obesity E66.0 1 ; BMI 45.0-49.9, adult Z68.42 ; Dietary counseling and surveillance Z71.3 ; Type 2 diabetes mellitus without complication, without long-term current use of insulin E11.9 ; Graves disease E05.00 ; Chronic anticoagulation Z79.01 ; PAF (paroxysmal atrial fibrillation) I48.0 and NICHOLE (obstructive sleep apnea) G47.33 [facility] [address] [address] 06/22/2024 MADDIE BORHOT Morbid obesity E66.0 1 ; BMI 45.0-49.9, adult Z68.42 ; Dietary counseling and surveillance Z71.3 ; Type 2 diabetes mellitus without complication, without long-term current use of insulin E11.9 ; Graves disease E05.00 ; Chronic anticoagulation Z79.01 ; PAF (paroxysmal atrial fibrillation) I48.0 ; NICHOLE (obstructive sleep apnea) G47.33 and Sensorineural hearing loss (SNHL) of both ears H90.3 [facility] [address] [address] 10/22/2023 MADDIE BORHOT Morbid obesity E66.0 1 [facility] [address] 11/07/2023 MADDIE PHOEBEHOT [facility] [address] 11/12/2023 MADDIE BORHOT Morbid obesity E66.0 1 [facility] [address] 04/19/2024 MADDIE PHOEBEHOT [facility] [address] [address] 05/05/2024 MADDIE REYES Encounter for screen ing for osteoporosis Z13.[address] [facility] [address] [place] [address] 05/20/2024 MADDIE PHOEBEHOT [facility] [address] [address] 06/28/2024 MADDIECARMEN REYES [facility] [address] [place] [address] 07/02/2024 MADDIE BORHOT [facility] [address] [address] 06/26/2024 MADDIE BORHOT [facility] [address] [address] 07/02/2024 MADDIE PHOEBEHOT [facility] [address] [address] 07/03/2024 MADDIE BORHOT [facility] [address] [address] 07/05/2024 MADDIE BORHOT [facility] [address] 07/06/2024 MADDIE SANDHUAURORA Assessments Encounter Date Diagnosis (ICD Code) Assessment Notes Treatment Notes Treatment Clinical Notes Section Notes 08/07/2023 Morbid obesity (ICD-10 - E66.01) #Weight Management 08/07/2023 thriving Thyroid function is very inconsistent and sporadic at the moment which can alter and hinder weight loss 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 product support manager and rechecking labs every 4 weeks or [...] minimum of 6 months The most recent [place] [employer] clinical endocrinologists and [place] [employer] guidelines recommend patients who [...] track activity level. Consider using apps like MoveinBlue, Oatmealpal, lose it, stick as needed for self-monitoring and weight management. Consider group exercises. Consider hiring a personal lines advisor. Regular exercise is carvalho to sustainable health [...] counseling and psychiatry and Dr Andres at [facility]. We would like to cover regular topics [...] software and direct typing Please excuse inadvertent library clerical assistant or typing errors, or uncorrected word substitutions Although every attempt has been made by the provider to proofread this document, occasional misspellings and typographical errors may still be present Due to the previous pandemic, and the use of personal protective equipment (PPE) This may decrease voice recognition accuracy Inadvertent library clerical assistant errors may occur 08/07/2023 BMI 45.0-49.9, adult (ICD-10 - Z68.42) #Weight Management 08/07/2023 thriving Thyroid function is very inconsistent and sporadic at the moment which can alter and hinder weight loss 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 product support manager and rechecking labs every 4 weeks or [...] minimum of 6 months The most recent [place] [employer] clinical endocrinologists and [place] [employer] guidelines recommend patients who [...] track activity level. Consider using apps like MoveinBlue, myfitnesspal, lose it, stick as needed for self-monitoring and weight management. Consider group exercises. Consider hiring a personal lines advisor. Regular exercise is carvalho to sustainable health [...] counseling and psychiatry and Dr Andres at [facility]. We would like to cover regular topics [...] software and direct typing Please excuse inadvertent library clerical assistant or typing errors, or uncorrected word substitutions Although every attempt has been made by the provider to proofread this document, occasional misspellings and typographical errors may still be present Due to the previous pandemic, and the use of personal protective equipment (PPE) This may decrease voice recognition accuracy Inadvertent library clerical assistant errors may occur 10/16/2023 Morbid obesity (ICD-10 - E66.01) #Weight Management 10/16/2023 Labs reviewed from [facility] September 2023 thriving Given ongoing weight loss this may be a recurrent problem until her weight stabilizes 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 product support manager and rechecking labs every 4 weeks or [...] minimum of 6 months The most recent [place] [employer] of clinical endocrinologists and [place] [employer] guidelines recommend patients who [...] track activity level. Consider using apps like MoveinBlue, myfitnesspal, lose it, stick as needed for self-monitoring and weight management. Consider group exercises. Consider hiring a personal lines advisor. Regular exercise is carvalho to sustainable health [...] counseling and psychiatry and Dr Andres at [facility]. We would like to cover regular topics [...] software and direct typing Please excuse inadvertent library clerical assistant or typing errors, or uncorrected word substitutions Although every attempt has been made by the provider to proofread this document, occasional misspellings and typographical errors may still be present Due to the previous pandemic, and the use of personal protective equipment (PPE) This may decrease voice recognition accuracy Inadvertent library clerical assistant errors may occur 10/22/2023 Morbid obesity (ICD-10 - E66.01) 11/12/2023 Morbid obesity (ICD-10 - E66.01) 12/18/2023 Morbid obesity (ICD-10 - E66.01) #Weight Management 12/18/2023 Labs reviewed from [facility] September 2023 thriving Given ongoing weight loss this may be a recurrent problem until her weight stabilizes 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 product support manager and rechecking labs every 4 weeks or [...] minimum of 6 months The most recent [place] [employer] clinical endocrinologists and [place] [employer] end[employer] guidelines recommend patients who [...] software and direct typing Please excuse inadvertent library clerical assistant or typing errors, or uncorrected word substitutions Although every attempt has been made by the provider to proofread this document, occasional misspellings and typographical errors may still be present Due to the previous pandemic, and the use of personal protective equipment (PPE) This may decrease voice recognition accuracy Inadvertent library clerical assistant errors may occur 03/17/2024 Morbid obesity (ICD-10 [...] minimum of 6 months The most recent [place] [employer] of clinical endocrinologists and [place] [employer] guidelines recommend patients who [...] software and direct typing Please excuse inadvertent library clerical assistant or typing errors, or uncorrected word substitutions Although every attempt has been made by the provider to proofread this document, occasional misspellings and typographical errors may still be present Due to the previous pandemic, and the use of personal protective equipment (PPE) This may decrease voice recognition accuracy Inadvertent library clerical assistant errors may occur 05/05/2024 Morbid obesity (ICD-10 [...] software and direct typing Please excuse inadvertent library clerical assistant or typing errors, or uncorrected word substitutions Although every attempt has been made by the provider to proofread this document, occasional misspellings and typographical errors may still be present Due to the previous pandemic, and the use of personal protective equipment (PPE) This may decrease voice recognition accuracy Inadvertent library clerical assistant errors may occur 05/05/2024 Encounter for screening [...] software and direct typing Please excuse inadvertent library clerical assistant or typing errors, or uncorrected word substitutions Although every attempt has been made by the provider to proofread this document, occasional misspellings and typographical errors may still be present Due to the previous pandemic, and the use of personal protective equipment (PPE) This may decrease voice recognition accuracy Inadvertent library clerical assistant errors may occur 06/22/2024 BMI 45.0-49.9, adult [...] software and direct typing Please excuse inadvertent library clerical assistant or typing errors, or uncorrected word substitutions Although every attempt has been made by the provider to proofread this document, occasional misspellings and typographical errors may still be present Due to the previous pandemic, and the use of personal protective equipment (PPE) This may decrease voice recognition accuracy Inadvertent library clerical assistant errors may occur 06/22/2024 Dietary counseling and [...] software and direct typing Please excuse inadvertent library clerical assistant or typing errors, or uncorrected word substitutions Although every attempt has been made by the provider to proofread this document, occasional misspellings and typographical errors may still be present Due to the previous pandemic, and the use of personal protective equipment (PPE) This may decrease voice recognition accuracy Inadvertent library clerical assistant errors may occur 05/05/2024 BMI 45.0-49.9, adult [...] software and direct typing Please excuse inadvertent library clerical assistant or typing errors, or uncorrected word substitutions Although every attempt has been made by the provider to proofread this document, occasional misspellings and typographical errors may still be present Due to the previous pandemic, and the use of personal protective equipment (PPE) This may decrease voice recognition accuracy Inadvertent library clerical assistant errors may occur 03/17/2024 BMI 45.0-49.9, adult [...] minimum of 6 months The most recent [place] [employer] clinical endocrinologists and [place] [employer]in[employer] guidelines recommend patients who [...] software and direct typing Please excuse inadvertent library clerical assistant or typing errors, or uncorrected word substitutions Although every attempt has been made by the provider to proofread this document, occasional misspellings and typographical errors may still be present Due to the previous pandemic, and the use of personal protective equipment (PPE) This may decrease voice recognition accuracy Inadvertent library clerical assistant errors may occur 12/18/2023 BMI 45.0-49.9, adult (ICD-10 - Z68.42) #Weight Management 12/18/2023 Labs reviewed from [facility] September 2023 thriving Given ongoing weight loss this may be a recurrent problem until her weight stabilizes 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 product support manager and rechecking labs every 4 weeks or [...] minimum of 6 months The most recent [place] [employer] of clinical endocrinologists and [place] [employer]in[employer] guidelines recommend patients who [...] software and direct typing Please excuse inadvertent library clerical assistant or typing errors, or uncorrected word substitutions Although every attempt has been made by the provider to proofread this document, occasional misspellings and typographical errors may still be present Due to the previous pandemic, and the use of personal protective equipment (PPE) This may decrease voice recognition accuracy Inadvertent library clerical assistant errors may occur 10/16/2023 BMI 45.0-49.9, adult (ICD-10 - Z68.42) #Weight Management 10/16/2023 Labs reviewed from [facility] September 2023 thriving Given ongoing weight loss this may be a recurrent problem until her weight stabilizes 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 product support manager and rechecking labs every 4 weeks or [...] minimum of 6 months The most recent [place] [employer] of clinical endocrinologists and [place] [employer] end[employer]in[employer] guidelines recommend patients who [...] track activity level. Consider using apps like panpan exceFashinating, Oatmealpal, lose it, stick as needed for self-monitoring and weight management. Consider group exercises. Consider hiring a personal lines advisor. Regular exercise is carvalho to sustainable health [...] counseling and psychiatry and Dr Andres at [facility]. We would like to cover regular topics [...] software and direct typing Please excuse inadvertent library clerical assistant or typing errors, or uncorrected word substitutions Although every attempt has been made by the provider to proofread this document, occasional misspellings and typographical errors may still be present Due to the previous pandemic, and the use of personal protective equipment (PPE) This may decrease voice recognition accuracy Inadvertent library clerical assistant errors may occur 08/07/2023 Dietary counseling and surveillance (ICD-10 - Z71.3) #Weight Management 08/07/2023 thriving Thyroid function is very inconsistent and sporadic at the moment which can alter and hinder weight loss 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 product support manager and rechecking labs every 4 weeks or [...] minimum of 6 months The most recent [place] [employer] of clinical endocrinologists and [place] [employer] end[employer]in[employer] guidelines recommend patients who [...] track activity level. Consider using apps like MoveinBlue, Oatmealpal, lose it, stick as needed for self-monitoring and weight management. Consider group exercises. Consider hiring a personal lines advisor. Regular exercise is carvalho to sustainable health [...] counseling and psychiatry and Dr Andres at [facility]. We would like to cover regular topics [...] software and direct typing Please excuse inadvertent library clerical assistant or typing errors, or uncorrected word substitutions Although every attempt has been made by the provider to proofread this document, occasional misspellings and typographical errors may still be present Due to the previous pandemic, and the use of personal protective equipment (PPE) This may decrease voice recognition accuracy Inadvertent library clerical assistant errors may occur 10/16/2023 Dietary counseling and surveillance (ICD-10 - Z71.3) #Weight Management 10/16/2023 Labs reviewed from [facility] September 2023 thriving Given ongoing weight loss this may be a recurrent problem until her weight stabilizes 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 product support manager and rechecking labs every 4 weeks or [...] minimum of 6 months The most recent [place] [employer] of clinical endocrinologists and [place] [employer] end[employer]in[employer] guidelines recommend patients who [...] track activity level. Consider using apps like MoveinBlue, Zykis, lose it, stick as needed for self-monitoring and weight management. Consider group exercises. Consider hiring a personal lines advisor. Regular exercise is carvalho to sustainable health [...] counseling and psychiatry and Dr Andres at [facility]. We would like to cover regular topics [...] software and direct typing Please excuse inadvertent library clerical assistant or typing errors, or uncorrected word substitutions Although every attempt has been made by the provider to proofread this document, occasional misspellings and typographical errors may still be present Due to the previous pandemic, and the use of personal protective equipment (PPE) This may decrease voice recognition accuracy Inadvertent library clerical assistant errors may occur 08/07/2023 Type 2 diabetes mellitus without complication, without long-term current use of insulin (ICD-10 - E11.9) #Weight Management 08/07/2023 thriving Thyroid function is very inconsistent and sporadic at the moment which can alter and hinder weight loss 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 product support manager and rechecking labs every 4 weeks or [...] minimum of 6 months The most recent [place] [employer] of clinical endocrinologists and [place] [employer] end[employer]in[employer] guidelines recommend patients who [...] track activity level. Consider using apps like MoveinBlue, Oatmealpal, lose it, stick as needed for self-monitoring and weight management. Consider group exercises. Consider hiring a personal lines advisor. Regular exercise is carvalho to sustainable health [...] counseling and psychiatry and Dr Andres at [facility]. We would like to cover regular topics [...] software and direct typing Please excuse inadvertent library clerical assistant or typing errors, or uncorrected word substitutions Although every attempt has been made by the provider to proofread this document, occasional misspellings and typographical errors may still be present Due to the previous pandemic, and the use of personal protective equipment (PPE) This may decrease voice recognition accuracy Inadvertent library clerical assistant errors may occur 12/18/2023 Dietary counseling and surveillance (ICD-10 - Z71.3) #Weight Management 12/18/2023 Labs reviewed from [facility] September 2023 thriving Given ongoing weight loss this may be a recurrent problem until her weight stabilizes 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 product support manager and rechecking labs every 4 weeks or [...] minimum of 6 months The most recent [place] [employer] of clinical endocrinologists and [place] [employer] end[employer]in[employer] guidelines recommend patients who [...] software and direct typing Please excuse inadvertent library clerical assistant or typing errors, or uncorrected word substitutions Although every attempt has been made by the provider to proofread this document, occasional misspellings and typographical errors may still be present Due to the previous pandemic, and the use of personal protective equipment (PPE) This may decrease voice recognition accuracy Inadvertent library clerical assistant errors may occur 03/17/2024 Dietary counseling and [...] minimum of 6 months The most recent [place] [employer] of clinical endocrinologists and [place] [employer]in[employer] guidelines recommend patients who [...] software and direct typing Please excuse inadvertent library clerical assistant or typing errors, or uncorrected word substitutions Although every attempt has been made by the provider to proofread this document, occasional misspellings and typographical errors may still be present Due to the previous pandemic, and the use of personal protective equipment (PPE) This may decrease voice recognition accuracy Inadvertent library clerical assistant errors may occur 05/05/2024 Dietary counseling and [...] software and direct typing Please excuse inadvertent library clerical assistant or typing errors, or uncorrected word substitutions Although every attempt has been made by the provider to proofread this document, occasional misspellings and typographical errors may still be present Due to the previous pandemic, and the use of personal protective equipment (PPE) This may decrease voice recognition accuracy Inadvertent library clerical assistant errors may occur 06/22/2024 Type 2 diabetes [...] software and direct typing Please excuse inadvertent library clerical assistant or typing errors, or uncorrected word substitutions Although every attempt has been made by the provider to proofread this document, occasional misspellings and typographical errors may still be present Due to the previous pandemic, and the use of personal protective equipment (PPE) This may decrease voice recognition accuracy Inadvertent library clerical assistant errors may occur 06/22/2024 Graves disease (ICD-10 [...] software and direct typing Please excuse inadvertent library clerical assistant or typing errors, or uncorrected word substitutions Although every attempt has been made by the provider to proofread this document, occasional misspellings and typographical errors may still be present Due to the previous pandemic, and the use of personal protective equipment (PPE) This may decrease voice recognition accuracy Inadvertent library clerical assistant errors may occur 05/05/2024 Type 2 diabetes [...] software and direct typing Please excuse inadvertent library clerical assistant or typing errors, or uncorrected word substitutions Although every attempt has been made by the provider to proofread this document, occasional misspellings and typographical errors may still be present Due to the previous pandemic, and the use of personal protective equipment (PPE) This may decrease voice recognition accuracy Inadvertent library clerical assistant errors may occur 12/18/2023 Type 2 diabetes mellitus without complication, without long-term current use of insulin (ICD-10 - E11.9) #Weight Management 12/18/2023 Labs reviewed from [facility] September 2023 thriving Given ongoing weight loss this may be a recurrent problem until her weight stabilizes 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 product support manager and rechecking labs every 4 weeks or [...] minimum of 6 months The most recent [place] [employer]ocrinologists and [place] [employer] guidelines recommend patients who [...] software and direct typing Please excuse inadvertent library clerical assistant or typing errors, or uncorrected word substitutions Although every attempt has been made by the provider to proofread this document, occasional misspellings and typographical errors may still be present Due to the previous pandemic, and the use of personal protective equipment (PPE) This may decrease voice recognition accuracy Inadvertent library clerical assistant errors may occur 03/17/2024 Type 2 diabetes [...] minimum of 6 months The most recent [place] [employer]ocrinologists and [place] [employer] guidelines recommend patients who [...] software and direct typing Please excuse inadvertent library clerical assistant or typing errors, or uncorrected word substitutions Although every attempt has been made by the provider to proofread this document, occasional misspellings and typographical errors may still be present Due to the previous pandemic, and the use of personal protective equipment (PPE) This may decrease voice recognition accuracy Inadvertent library clerical assistant errors may occur 10/16/2023 Type 2 diabetes mellitus without complication, without long-term current use of insulin (ICD-10 - E11.9) #Weight Management 10/16/2023 Labs reviewed from [facility] September 2023 thriving Given ongoing weight loss this may be a recurrent problem until her weight stabilizes 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 product support manager and rechecking labs every 4 weeks or [...] minimum of 6 months The most recent [place] [employer]ocrinologists and [place] [employer] guidelines recommend patients who [...] track activity level. Consider using apps like MoveinBlue, Oatmealpal, lose it, stick as needed for self-monitoring and weight management. Consider group exercises. Consider hiring a personal lines advisor. Regular exercise is carvalho to sustainable health [...] counseling and psychiatry and Dr Andres at [facility]. We would like to cover regular topics [...] software and direct typing Please excuse inadvertent library clerical assistant or typing errors, or uncorrected word substitutions Although every attempt has been made by the provider to proofread this document, occasional misspellings and typographical errors may still be present Due to the previous pandemic, and the use of personal protective equipment (PPE) This may decrease voice recognition accuracy Inadvertent library clerical assistant errors may occur 08/07/2023 Graves disease (ICD-10 - E05.00) #Weight Management 08/07/2023 thriving Thyroid function is very inconsistent and sporadic at the moment which can alter and hinder weight loss 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 product support manager and rechecking labs every 4 weeks or [...] minimum of 6 months The most recent [place] [employer] endocrinologists and [place] [employer] guidelines recommend patients who [...] track activity level. Consider using apps like MoveinBlue, Oatmealpal, lose it, stick as needed for self-monitoring and weight management. Consider group exercises. Consider hiring a personal lines advisor. Regular exercise is carvalho to sustainable health [...] counseling and psychiatry and Dr Andres at [facility]. We would like to cover regular topics [...] software and direct typing Please excuse inadvertent library clerical assistant or typing errors, or uncorrected word substitutions Although every attempt has been made by the provider to proofread this document, occasional misspellings and typographical errors may still be present Due to the previous pandemic, and the use of personal protective equipment (PPE) This may decrease voice recognition accuracy Inadvertent library clerical assistant errors may occur 08/07/2023 Chronic anticoagulation (ICD-10 - Z79.01) #Weight Management 08/07/2023 thriving Thyroid function is very inconsistent and sporadic at the moment which can alter and hinder weight loss 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 product support manager and rechecking labs every 4 weeks or [...] minimum of 6 months The most recent [place] [employer]ocrinologists and [place] [employer] guidelines recommend patients who [...] track activity level. Consider using apps like [employer]FreeCallsise, myfitnesspal, lose it, stick as needed for self-monitoring and weight management. Consider group exercises. Consider hiring a personal lines advisor. Regular exercise is carvalho to sustainable health [...] counseling and psychiatry and Dr Andres at [facility]. We would like to cover regular topics [...] software and direct typing Please excuse inadvertent library clerical assistant or typing errors, or uncorrected word substitutions Although every attempt has been made by the provider to proofread this document, occasional misspellings and typographical errors may still be present Due to the previous pandemic, and the use of personal protective equipment (PPE) This may decrease voice recognition accuracy Inadvertent library clerical assistant errors may occur 10/16/2023 Graves disease (ICD-10 - E05.00) #Weight Management 10/16/2023 Labs reviewed from [facility] September 2023 thriving Given ongoing weight loss this may be a recurrent problem until her weight stabilizes 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 product support manager and rechecking labs every 4 weeks or [...] minimum of 6 months The most recent [place] [employer]ocrinologists and [place] [employer] guidelines recommend patients who [...] track activity level. Consider using apps like MoveinBlue, Oatmealpal, lose it, stick as needed for self-monitoring and weight management. Consider group exercises. Consider hiring a personal lines advisor. Regular exercise is carvalho to sustainable health [...] counseling and psychiatry and Dr Andres at [facility]. We would like to cover regular topics [...] software and direct typing Please excuse inadvertent library clerical assistant or typing errors, or uncorrected word substitutions Although every attempt has been made by the provider to proofread this document, occasional misspellings and typographical errors may still be present Due to the previous pandemic, and the use of personal protective equipment (PPE) This may decrease voice recognition accuracy Inadvertent library clerical assistant errors may occur 03/17/2024 Graves disease (ICD-10 [...] minimum of 6 months The most recent [place] [employer]ocrinologists and [place] [employer] guidelines recommend patients who [...] software and direct typing Please excuse inadvertent library clerical assistant or typing errors, or uncorrected word substitutions Although every attempt has been made by the provider to proofread this document, occasional misspellings and typographical errors may still be present Due to the previous pandemic, and the use of personal protective equipment (PPE) This may decrease voice recognition accuracy Inadvertent library clerical assistant errors may occur 12/18/2023 Graves disease (ICD-10 - E05.00) #Weight Management 12/18/2023 Labs reviewed from [facility] September 2023 thriving Given ongoing weight loss this may be a recurrent problem until her weight stabilizes 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 product support manager and rechecking labs every 4 weeks or [...] minimum of 6 months The most recent [place] [employer]ocrinologists and [place] [employer] guidelines recommend patients who [...] software and direct typing Please excuse inadvertent library clerical assistant or typing errors, or uncorrected word substitutions Although every attempt has been made by the provider to proofread this document, occasional misspellings and typographical errors may still be present Due to the previous pandemic, and the use of personal protective equipment (PPE) This may decrease voice recognition accuracy Inadvertent library clerical assistant errors may occur 05/05/2024 Graves disease (ICD-10 [...] software and direct typing Please excuse inadvertent library clerical assistant or typing errors, or uncorrected word substitutions Although every attempt has been made by the provider to proofread this document, occasional misspellings and typographical errors may still be present Due to the previous pandemic, and the use of personal protective equipment (PPE) This may decrease voice recognition accuracy Inadvertent library clerical assistant errors may occur 06/22/2024 Chronic anticoagulation (ICD-10 [...] software and direct typing Please excuse inadvertent library clerical assistant or typing errors, or uncorrected word substitutions Although every attempt has been made by the provider to proofread this document, occasional misspellings and typographical errors may still be present Due to the previous pandemic, and the use of personal protective equipment (PPE) This may decrease voice recognition accuracy Inadvertent library clerical assistant errors may occur 06/22/2024 PAF (paroxysmal atrial [...] software and direct typing Please excuse inadvertent library clerical assistant or typing errors, or uncorrected word substitutions Although every attempt has been made by the provider to proofread this document, occasional misspellings and typographical errors may still be present Due to the previous pandemic, and the use of personal protective equipment (PPE) This may decrease voice recognition accuracy Inadvertent library clerical assistant errors may occur 03/17/2024 Chronic anticoagulation (ICD-10 [...] minimum of 6 months The most recent [place] [employer]ocrinologists and [place] [employer] guidelines recommend patients who [...] software and direct typing Please excuse inadvertent library clerical assistant or typing errors, or uncorrected word substitutions Although every attempt has been made by the provider to proofread this document, occasional misspellings and typographical errors may still be present Due to the previous pandemic, and the use of personal protective equipment (PPE) This may decrease voice recognition accuracy Inadvertent library clerical assistant errors may occur 05/05/2024 Chronic anticoagulation (ICD-10 [...] software and direct typing Please excuse inadvertent library clerical assistant or typing errors, or uncorrected word substitutions Although every attempt has been made by the provider to proofread this document, occasional misspellings and typographical errors may still be present Due to the previous pandemic, and the use of personal protective equipment (PPE) This may decrease voice recognition accuracy Inadvertent library clerical assistant errors may occur 12/18/2023 Chronic anticoagulation (ICD-10 - Z79.01) #Weight Management 12/18/2023 Labs reviewed from [facility] September 2023 thriving Given ongoing weight loss this may be a recurrent problem until her weight stabilizes 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 product support manager and rechecking labs every 4 weeks or [...] minimum of 6 months The most recent [place] [employer]ocrinologists and [place] [employer] guidelines recommend patients who [...] software and direct typing Please excuse inadvertent library clerical assistant or typing errors, or uncorrected word substitutions Although every attempt has been made by the provider to proofread this document, occasional misspellings and typographical errors may still be present Due to the previous pandemic, and the use of personal protective equipment (PPE) This may decrease voice recognition accuracy Inadvertent library clerical assistant errors may occur 10/16/2023 Chronic anticoagulation (ICD-10 - Z79.01) #Weight Management 10/16/2023 Labs reviewed from [facility] September 2023 thriving Given ongoing weight loss this may be a recurrent problem until her weight stabilizes 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 product support manager and rechecking labs every 4 weeks or [...] minimum of 6 months The most recent [place] [employer]ocrinologists and [place] [employer] guidelines recommend patients who [...] track activity level. Consider using apps like MoveinBlue, Oatmealpal, lose it, stick as needed for self-monitoring and weight management. Consider group exercises. Consider hiring a personal lines advisor. Regular exercise is carvalho to sustainable health [...] counseling and psychiatry and Dr Andres at [facility]. We would like to cover regular topics [...] software and direct typing Please excuse inadvertent library clerical assistant or typing errors, or uncorrected word substitutions Although every attempt has been made by the provider to proofread this document, occasional misspellings and typographical errors may still be present Due to the previous pandemic, and the use of personal protective equipment (PPE) This may decrease voice recognition accuracy Inadvertent library clerical assistant errors may occur 08/07/2023 PAF (paroxysmal atrial fibrillation) (ICD-10 - I48.0) #Weight Management 08/07/2023 thriving Thyroid function is very inconsistent and sporadic at the moment which can alter and hinder weight loss 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 product support manager and rechecking labs every 4 weeks or [...] minimum of 6 months The most recent [place] [employer] endocrinologists and [place] [employer] guidelines recommend patients who [...] track activity level. Consider using apps like MoveinBlue, Quantinefitnesspal, lose it, stick as needed for self-monitoring and weight management. Consider group exercises. Consider hiring a personal lines advisor. Regular exercise is carvalho to sustainable health [...] counseling and psychiatry and Dr Andres at [facility]. We would like to cover regular topics [...] software and direct typing Please excuse inadvertent library clerical assistant or typing errors, or uncorrected word substitutions Although every attempt has been made by the provider to proofread this document, occasional misspellings and typographical errors may still be present Due to the previous pandemic, and the use of personal protective equipment (PPE) This may decrease voice recognition accuracy Inadvertent library clerical assistant errors may occur 08/07/2023 NICHOLE (obstructive sleep apnea) (ICD-10 - G47.33) #Weight Management 08/07/2023 thriving Thyroid function is very inconsistent and sporadic at the moment which can alter and hinder weight loss 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 product support manager and rechecking labs every 4 weeks or [...] minimum of 6 months The most recent [place] [employer] endocrinologists and [place] [employer] guidelines recommend patients who [...] track activity level. Consider using apps like MoveinBlue, Oatmealpal, lose it, stick as needed for self-monitoring and weight management. Consider group exercises. Consider hiring a personal lines advisor. Regular exercise is carvalho to sustainable health [...] counseling and psychiatry and Dr Andres at [facility]. We would like to cover regular topics [...] software and direct typing Please excuse inadvertent library clerical assistant or typing errors, or uncorrected word substitutions Although every attempt has been made by the provider to proofread this document, occasional misspellings and typographical errors may still be present Due to the previous pandemic, and the use of personal protective equipment (PPE) This may decrease voice recognition accuracy Inadvertent library clerical assistant errors may occur 10/16/2023 PAF (paroxysmal atrial fibrillation) (ICD-10 - I48.0) #Weight Management 10/16/2023 Labs reviewed from [facility] September 2023 thriving Given ongoing weight loss this may be a recurrent problem until her weight stabilizes 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 product support manager and rechecking labs every 4 weeks or [...] minimum of 6 months The most recent [place] [employer] endocrinologists and [place] [employer] guidelines recommend patients who [...] track activity level. Consider using apps like MoveinBlue, Oatmealpal, lose it, stick as needed for self-monitoring and weight management. Consider group exercises. Consider hiring a personal lines advisor. Regular exercise is carvalho to sustainable health [...] counseling and psychiatry and Dr Andres at [facility]. We would like to cover regular topics [...] software and direct typing Please excuse inadvertent library clerical assistant or typing errors, or uncorrected word substitutions Although every attempt has been made by the provider to proofread this document, occasional misspellings and typographical errors may still be present Due to the previous pandemic, and the use of personal protective equipment (PPE) This may decrease voice recognition accuracy Inadvertent library clerical assistant errors may occur 12/18/2023 PAF (paroxysmal atrial fibrillation) (ICD-10 - I48.0) #Weight Management 12/18/2023 Labs reviewed from [facility] September 2023 thriving Given ongoing weight loss this may be a recurrent problem until her weight stabilizes 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 product support manager and rechecking labs every 4 weeks or [...] minimum of 6 months The most recent [place] [employer]ocrinologists and [place] [employer] guidelines recommend patients who [...] software and direct typing Please excuse inadvertent library clerical assistant or typing errors, or uncorrected word substitutions Although every attempt has been made by the provider to proofread this document, occasional misspellings and typographical errors may still be present Due to the previous pandemic, and the use of personal protective equipment (PPE) This may decrease voice recognition accuracy Inadvertent library clerical assistant errors may occur 03/17/2024 PAF (paroxysmal atrial [...] minimum of 6 months The most recent [place] [employer] endocrinologists and [place] [employer] guidelines recommend patients who [...] software and direct typing Please excuse inadvertent library clerical assistant or typing errors, or uncorrected word substitutions Although every attempt has been made by the provider to proofread this document, occasional misspellings and typographical errors may still be present Due to the previous pandemic, and the use of personal protective equipment (PPE) This may decrease voice recognition accuracy Inadvertent library clerical assistant errors may occur 05/05/2024 PAF (paroxysmal atrial [...] software and direct typing Please excuse inadvertent library clerical assistant or typing errors, or uncorrected word substitutions Although every attempt has been made by the provider to proofread this document, occasional misspellings and typographical errors may still be present Due to the previous pandemic, and the use of personal protective equipment (PPE) This may decrease voice recognition accuracy Inadvertent library clerical assistant errors may occur 06/22/2024 NICHOLE (obstructive sleep [...] software and direct typing Please excuse inadvertent library clerical assistant or typing errors, or uncorrected word substitutions Although every attempt has been made by the provider to proofread this document, occasional misspellings and typographical errors may still be present Due to the previous pandemic, and the use of personal protective equipment (PPE) This may decrease voice recognition accuracy Inadvertent library clerical assistant errors may occur 05/05/2024 NICHOLE (obstructive sleep [...] software and direct typing Please excuse inadvertent library clerical assistant or typing errors, or uncorrected word substitutions Although every attempt has been made by the provider to proofread this document, occasional misspellings and typographical errors may still be present Due to the previous pandemic, and the use of personal protective equipment (PPE) This may decrease voice recognition accuracy Inadvertent library clerical assistant errors may occur 06/22/2024 Sensorineural hearing loss [...] software and direct typing Please excuse inadvertent library clerical assistant or typing errors, or uncorrected word substitutions Although every attempt has been made by the provider to proofread this document, occasional misspellings and typographical errors may still be present Due to the previous pandemic, and the use of personal protective equipment (PPE) This may decrease voice recognition accuracy Inadvertent library clerical assistant errors may occur 03/17/2024 NICHOLE (obstructive sleep [...] minimum of 6 months The most recent [place] [employer]ocrinologists and [place] [employer] guidelines recommend patients who [...] software and direct typing Please excuse inadvertent library clerical assistant or typing errors, or uncorrected word substitutions Although every attempt has been made by the provider to proofread this document, occasional misspellings and typographical errors may still be present Due to the previous pandemic, and the use of personal protective equipment (PPE) This may decrease voice recognition accuracy Inadvertent library clerical assistant errors may occur 12/18/2023 NICHOLE (obstructive sleep apnea) (ICD-10 - G47.33) #Weight Management 12/18/2023 Labs reviewed from [facility] September 2023 thriving Given ongoing weight loss this may be a recurrent problem until her weight stabilizes 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 product support manager and rechecking labs every 4 weeks or [...] minimum of 6 months The most recent [place] [employer]ocrinologists and [place] [employer] guidelines recommend patients who [...] software and direct typing Please excuse inadvertent library clerical assistant or typing errors, or uncorrected word substitutions Although every attempt has been made by the provider to proofread this document, occasional misspellings and typographical errors may still be present Due to the previous pandemic, and the use of personal protective equipment (PPE) This may decrease voice recognition accuracy Inadvertent library clerical assistant errors may occur 10/16/2023 NICHOLE (obstructive sleep apnea) (ICD-10 - G47.33) #Weight Management 10/16/2023 Labs reviewed from [facility] September 2023 thriving Given ongoing weight loss this may be a recurrent problem until her weight stabilizes 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 product support manager and rechecking labs every 4 weeks or [...] minimum of 6 months The most recent [place] [employer]ocrin[employer] and [place] [employer] guidelines recommend patients who [...] track activity level. Consider using apps like MoveinBlue, Oatmealpal, lose it, stick as needed for self-monitoring and weight management. Consider group exercises. Consider hiring a personal lines advisor. Regular exercise is carvalho to sustainable health [...] counseling and psychiatry and Dr Andres at [facility]. We would like to cover regular topics [...] software and direct typing Please excuse inadvertent library clerical assistant or typing errors, or uncorrected word substitutions Although every attempt has been made by the provider to proofread this document, occasional misspellings and typographical errors may still be present Due to the previous pandemic, and the use of personal protective equipment (PPE) This may decrease voice recognition accuracy Inadvertent library clerical assistant errors may occur Plan Of Treatment Pending Test Test Name Order Date Bone Density 05/05/2024 Next Appt Details Provider Name:MADDIE REYES, 08/20/2024 08:45:00 AM, [address] [facility], [facility] [address], [place], [address], Insurance Providers Payer Name Payer Address Payer Phone Subscriber Number Group Number Insured Name Patient Relationship to Insured Coverage Start Date Coverage End Date [facility] [address] [place] [address] [phone] [id number] Corazon Cortez Self - patient is the insured Medical (General) History Medical History History ICD Code diabetes mellitus graves disease afib gastroesophageal reflux disease (GERD) hyperlipidemia asthma sleep apnea Surgical History Surgery Date(Month/Year) cholecystectomy umbilical hernia repair arthroscopic knee surgery left partial hysterectomy Hospitalization History Reason Date(Month/Year) cardioversion x 3 episodes (01/2022, 2020, 09/2019)
[2024-08-02 09:17] VITALS: BP 120/72; PULSE 79; BMI 44.7
== END 2024-08-02 09:41 | disposition home or self-care (01) ==
PROVIDERS: PCP Nurse Practitioner Acute Care; Visit Provider Internal Medicine Cardiovascular Disease
DX: I48.0 Paroxysmal atrial fibrillation (principal); I48.92 Unspecified atrial flutter; E05.00 Thyrotoxicosis with diffuse goiter without thyrotoxic crisis or storm; R60.9 Edema, unspecified; E66.01 Morbid (severe) obesity due to excess calories
CPT/HCPCS: 93010; 99214

== ENCOUNTER → 2024-08-02 08:59 | Outpatient (BNVA) | payer BC, SELFPAY | PROVIDERS: PCP Internal Medicine; Visit Provider Internal Medicine Cardiovascular Disease | DX: I48.92 Unspecified atrial flutter (principal); I48.0 Paroxysmal atrial fibrillation; E05.00 Thyrotoxicosis with diffuse goiter without thyrotoxic crisis or storm; R60.9 Edema, unspecified; E66.01 Morbid (severe) obesity due to excess calories; Z68.41 Body mass index [BMI] 40.0-44.9, adult; Z98.890 Other specified postprocedural states | CPT/HCPCS: 93005 ==

== ENCOUNTER 2024-08-12 09:37 | Outpatient (REF) | payer BC, SELFPAY ==
--- NOTE | ~2024-08-12 | MM_ITS ---
EXAMINATION: MM SCREENING DIGITAL BREAST TOMOSYNTHESIS, BILATERAL CLINICAL INFORMATION: Screening. Asymptomatic. COMPARISON: Mammography: Comparison is made with available priors TECHNIQUE: Digital breast mammography with tomosynthesis is performed in both the craniocaudal and mediolateral oblique views along with computer-aided detection (CAD). FINDINGS: There are scattered areas of fibroglandular density (ACR BI-RADS breast composition Category b). There are no significant masses, abnormal calcifications, or other abnormalities. MM/MM tomosynthesis screening BI IMPRESSION: No mammographic evidence of malignancy. ASSESSMENT: BI-RADS BI-RADS 1 - Negative RECOMMENDATION: Routine annual mammography screening. 1 year F/U This examination should not preclude the clinical evaluation of a suspicious palpable abnormality. This patient's information was entered into a reminder system with a target due date for their next mammogram. Electronically signed by: Jazmin Hernandez DO 08/17/2024 02:33 PM EDT
--- OUTSIDE RECORDS SUMMARY | 2024-08-12 10:32 | XMS_ITS | Patient Health Record ---
Author Organization [facility] [address] Address [address] [place] [address] Care Team Providers Care Caption Writer Name Role Phone MADDIE REYES Unavailable [phone] Allergies Allergen (clinical drug ingredient) Drug/Non Drug Allergy documented on EMR Reaction Allergy Type Onset Date Status ibuprofen Ibuprofen Blood thinner Drug Allergy Act indigo Results Component Value Reference Range Notes BD BONE DENSITY DXA AXIAL SK ELETON Reviewed date:05/20/2024 08:56:43 AM Interpretation: Performing Lab: Notes/Report: Note See Note [facility], a member of [facility] Patient Name: CORAZON CORTEZ Date of : 1970 Reason for Exam: SCREENING Exam Date: 05/20/2024 [id number] EST Report Status: Final Ordering Provider: MADDIE [...] probability of hip fracture of 0.0%. Code 33920 -------- FINAL REPOR T -------- Dictated By: Rah Chamberlain Dictated Date: 05/20 08:31 ET Assigned Physician: Rah Chamberlain Reviewed and Electro nically Signed By: Rah Chamberlain Signed Date: 025 08:32 ET Workstation ID: [id number] Transcribed By: Self Edit Transcribed Date: 05/20/2024 08:31 ET Reason For Referral Reason Home Sleep Study ([facility]) Diagnosis 1 Obstructive apnea (G 47.33) Referral Organization [facility] [address] Referring Provider First Name MADDIE Referring Provider Last Name AMY Referring Provider Speciality Internal M edicine Referred Provider Specialty Pulmonology General Notes Alba Vail 01/2025 09:38:15 AM > Pt given phone [phone] to call and make an appt and referral form faxed to [phone] Clinical Notes Ursula Sanon 06/28 12:26:35 PM >can you resend referral to [facility] needs a insurance referral, Gomez Aquino 07/05/2024 09:43:16 AM > refaxed to [facility] Referral Priority Routine Medications Medication SIG [...] Status Risk Notes Problem Screening for osteoporosis (487573575) Encounter for screening for osteoporosis (Z13.820) Active confirmed Problem [id number] Morbid obesity (E66.01) Active confirmed Problem 05490920 NICHOLE (obstructive sleep apnea) (G47.33) Active confirmed Problem 008839243 Chronic anticoagulation (Z79.01) Active confirmed Problem 776948248 Type 2 diabetes mellitus without complication, without long-term current use of insulin (E11.9) Active confirmed Problem 861627222 BMI 50.0-59.9, adult (Z68.43) Active confirmed Problem 284101825 Graves disease (E05.00) Active confirmed Problem [id number] PAF (paroxysmal atrial fibrillation) (I48.0) Active confirmed Problem 195779944 BMI 45.0-49.9, adult (Z68.42) Active confirmed Problem 105788491 Sensorineural hearing loss (SNHL) of both ears (H90.3) Active confirmed Problem Obstructive apne a (G47.33) Active confirmed Vital Signs Heart Rate 95 /min 06/22/2024 Oximetry 98 % 06/22/2024 Blood pressure diastolic 64 mm Hg 06/22/2024 Height 66 in 06/22/2024 Blood pressure systolic 126 mm Hg 06/22/2024 Weight 292.3 lbs 06/22/2024 BMI 47.17 kg/m2 06/22/2024 Encounters Encounter Location Date Provider Diagnosis [facility] [address] [address] 10/16/2023 MADDIE REYES Morbid obesity E66.0 1 ; BMI 45.0-49.9, adult Z68.42 ; Dietary counseling and surveillance Z71.3 ; Type 2 diabetes mellitus without complication, without long-term current use of insulin E11.9 ; Graves disease E05.00 ; Chronic anticoagulation Z79.01 ; PAF (paroxysmal atrial fibrillation) I48.0 and NICHOLE (obstructive sleep apnea) G47.33 [facility] [address] [address] 12/18/2023 MADDIE REYES Morbid obesity E66.0 1 ; BMI 45.0-49.9, adult Z68.42 ; Dietary counseling and surveillance Z71.3 ; Type 2 diabetes mellitus without complication, without long-term current use of insulin E11.9 ; Graves disease E05.00 ; Chronic anticoagulation Z79.01 ; PAF (paroxysmal atrial fibrillation) I48.0 and NICHOLE (obstructive sleep apnea) G47.33 [facility] [address] [address] 03/17/2024 MADDIE REYES Morbid obesity E66.0 1 ; BMI 45.0-49.9, adult Z68.42 ; Dietary counseling and surveillance Z71.3 ; Type 2 diabetes mellitus without complication, without long-term current use of insulin E11.9 ; Graves disease E05.00 ; Chronic anticoagulation Z79.01 ; PAF (paroxysmal atrial fibrillation) I48.0 and NICHOLE (obstructive sleep apnea) G47.33 [facility] [address] [address] 05/05/2024 MADDIE REYES Morbid obesity E66.0 1 ; BMI 45.0-49.9, adult Z68.42 ; Dietary counseling and surveillance Z71.3 ; Type 2 diabetes mellitus without complication, without long-term current use of insulin E11.9 ; Graves disease E05.00 ; Chronic anticoagulation Z79.01 ; PAF (paroxysmal atrial fibrillation) I48.0 and NICHOLE (obstructive sleep apnea) G47.33 [facility] [address] [address] 06/22/2024 MADDIE REYES Morbid obesity E66.0 1 ; [...] both ears H90.3 [facility] [address] [address] 10/22/2023 MADDIE REYES Morbid obesity E66.0 1 [facility] [address] 11/07/2023 MADDIE PHOEBEHOT [facility] [address] 11/12/2023 MADDIE REYES Morbid obesity E66.0 1 [facility] [address] 04/19/2024 MADDIE PHOEBEHOT [facility] [address] [address] 05/05/2024 MADDIE REYES Encounter for screen ing for osteoporosis Z13.[address] [facility] [address] [place] [address] 05/20/2024 MADDIECARMEN BRISENOT [facility] [address] [address] 06/28/2024 MADDIE BORHOT [facility] [address] [place] [address] 07/02/2024 MADDIE PHOEBEHOT [facility] [address] [address] 06/26/2024 MADDIE PHOEBEHOT [facility] [address] 07/02/2024 MADDIE PHOEBEHOT [facility] [address] [address] 07/03/2024 MADDIE BORHOT [facility] [address] [address] 07/05/2024 MADDIE REYES [facility] [address] [facility] [address] [place] [address] 07/06/2024 MADDIE REYES Assessments Encounter Date Diagnosis (ICD Code) Assessment Notes Treatment Notes Treatment Clinical Notes Section Notes 10/16/2023 Morbid obesity (ICD-10 - E66.01) #Weight Management 10/16/2023 Labs reviewed from [facility] September 2023 thriving Given ongoing weight loss this may be a recurrent problem until her weight stabilizes 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 vat tender and rechecking labs every 4 weeks [...] minimum of 6 months The most recent [place] [employer] of clinical endocrinologists and [place] [employer] of endocrinology guidelines recommend patients who [...] track activity level. Consider using apps like [facility], [employer]pal, lose it, stick as needed for self-monitoring and weight management. Consider group exercises. Consider hiring a personal care aide. Regular exercise is carvalho to sustainable health [...] counseling and psychiatry and Dr Andres at [facility]. We would like to cover regular topics [...] software and direct typing Please excuse inadvertent signal intelligence analyst or typing errors, or uncorrected word substitutions Although every attempt has been made by the provider to proofread this document, occasional misspellings and typographical errors may still be present Due to the previous pandemic, and the use of personal protective equipment (PPE) This may decrease voice recognition accuracy Inadvertent signal intelligence analyst errors may occur 10/22/2023 Morbid obesity (ICD-10 - E66.01) 11/12/2023 Morbid obesity (ICD-10 - E66.01) 12/18/2023 Morbid obesity (ICD-10 - E66.01) #Weight Management 12/18/2023 Labs reviewed from [facility] September 2023 thriving Given ongoing weight loss this may be a recurrent problem until her weight stabilizes 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 vat tender and rechecking labs every 4 weeks [...] minimum of 6 months The most recent [place] [employer] of clinical endocrinologists and [place] [employer] of endocrinology guidelines recommend patients who [...] software and direct typing Please excuse inadvertent signal intelligence analyst or typing errors, or uncorrected word substitutions Although every attempt has been made by the provider to proofread this document, occasional misspellings and typographical errors may still be present Due to the previous pandemic, and the use of personal protective equipment (PPE) This may decrease voice recognition accuracy Inadvertent signal intelligence analyst errors may occur 03/17/2024 Morbid obesity (ICD-10 [...] minimum of 6 months The most recent [place] [employer] of clinical endocrinologists and [place] [employer] end[employer]inology guidelines recommend patients who [...] software and direct typing Please excuse inadvertent signal intelligence analyst or typing errors, or uncorrected word substitutions Although every attempt has been made by the provider to proofread this document, occasional misspellings and typographical errors may still be present Due to the previous pandemic, and the use of personal protective equipment (PPE) This may decrease voice recognition accuracy Inadvertent signal intelligence analyst errors may occur 05/05/2024 Morbid obesity (ICD-10 [...] software and direct typing Please excuse inadvertent signal intelligence analyst or typing errors, or uncorrected word substitutions Although every attempt has been made by the provider to proofread this document, occasional misspellings and typographical errors may still be present Due to the previous pandemic, and the use of personal protective equipment (PPE) This may decrease voice recognition accuracy Inadvertent signal intelligence analyst errors may occur 05/05/2024 Encounter for screening [...] software and direct typing Please excuse inadvertent signal intelligence analyst or typing errors, or uncorrected word substitutions Although every attempt has been made by the provider to proofread this document, occasional misspellings and typographical errors may still be present Due to the previous pandemic, and the use of personal protective equipment (PPE) This may decrease voice recognition accuracy Inadvertent signal intelligence analyst errors may occur 06/22/2024 BMI 45.0-49.9, adult [...] software and direct typing Please excuse inadvertent signal intelligence analyst or typing errors, or uncorrected word substitutions Although every attempt has been made by the provider to proofread this document, occasional misspellings and typographical errors may still be present Due to the previous pandemic, and the use of personal protective equipment (PPE) This may decrease voice recognition accuracy Inadvertent signal intelligence analyst errors may occur 06/22/2024 Dietary counseling and [...] software and direct typing Please excuse inadvertent signal intelligence analyst or typing errors, or uncorrected word substitutions Although every attempt has been made by the provider to proofread this document, occasional misspellings and typographical errors may still be present Due to the previous pandemic, and the use of personal protective equipment (PPE) This may decrease voice recognition accuracy Inadvertent signal intelligence analyst errors may occur 05/05/2024 BMI 45.0-49.9, adult [...] software and direct typing Please excuse inadvertent signal intelligence analyst or typing errors, or uncorrected word substitutions Although every attempt has been made by the provider to proofread this document, occasional misspellings and typographical errors may still be present Due to the previous pandemic, and the use of personal protective equipment (PPE) This may decrease voice recognition accuracy Inadvertent signal intelligence analyst errors may occur 03/17/2024 BMI 45.0-49.9, adult [...] minimum of 6 months The most recent [place] [employer] of clinical endocrinologists and [place] [employer] endocrinology guidelines recommend patients who [...] software and direct typing Please excuse inadvertent signal intelligence analyst or typing errors, or uncorrected word substitutions Although every attempt has been made by the provider to proofread this document, occasional misspellings and typographical errors may still be present Due to the previous pandemic, and the use of personal protective equipment (PPE) This may decrease voice recognition accuracy Inadvertent signal intelligence analyst errors may occur 12/18/2023 BMI 45.0-49.9, adult (ICD-10 - Z68.42) #Weight Management 12/18/2023 Labs reviewed from [facility] September 2023 thriving Given ongoing weight loss this may be a recurrent problem until her weight stabilizes 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 vat tender and rechecking labs every 4 weeks [...] minimum of 6 months The most recent [place] [employer] of clinical endocrinologists and [place] [employer] endocrinology guidelines recommend patients who [...] software and direct typing Please excuse inadvertent signal intelligence analyst or typing errors, or uncorrected word substitutions Although every attempt has been made by the provider to proofread this document, occasional misspellings and typographical errors may still be present Due to the previous pandemic, and the use of personal protective equipment (PPE) This may decrease voice recognition accuracy Inadvertent signal intelligence analyst errors may occur 10/16/2023 BMI 45.0-49.9, adult (ICD-10 - Z68.42) #Weight Management 10/16/2023 Labs reviewed from [facility] September 2023 thriving Given ongoing weight loss this may be a recurrent problem until her weight stabilizes 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 vat tender and rechecking labs every 4 weeks [...] minimum of 6 months The most recent [place] [employer] of clinical endocrinologists and [place] [employer] endocrinology guidelines recommend patients who [...] track activity level. Consider using apps like [facility], [employer]pal, lose it, stick as needed for self-monitoring and weight management. Consider group exercises. Consider hiring a personal care aide. Regular exercise is carvalho to sustainable health [...] counseling and psychiatry and Dr Andres at [facility]. We would like to cover regular topics [...] software and direct typing Please excuse inadvertent signal intelligence analyst or typing errors, or uncorrected word substitutions Although every attempt has been made by the provider to proofread this document, occasional misspellings and typographical errors may still be present Due to the previous pandemic, and the use of personal protective equipment (PPE) This may decrease voice recognition accuracy Inadvertent signal intelligence analyst errors may occur 10/16/2023 Dietary counseling and surveillance (ICD-10 - Z71.3) #Weight Management 10/16/2023 Labs reviewed from [facility] September 2023 thriving Given ongoing weight loss this may be a recurrent problem until her weight stabilizes 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 vat tender and rechecking labs every 4 weeks [...] minimum of 6 months The most recent [place] [employer] of clinical endocrinologists and [place] [employer] endocrinology guidelines recommend patients who [...] track activity level. Consider using apps like [facility], [employer]pal, lose it, stick as needed for self-monitoring and weight management. Consider group exercises. Consider hiring a personal care aide. Regular exercise is carvalho to sustainable health [...] counseling and psychiatry and Dr Andres at [facility]. We would like to cover regular topics [...] software and direct typing Please excuse inadvertent signal intelligence analyst or typing errors, or uncorrected word substitutions Although every attempt has been made by the provider to proofread this document, occasional misspellings and typographical errors may still be present Due to the previous pandemic, and the use of personal protective equipment (PPE) This may decrease voice recognition accuracy Inadvertent signal intelligence analyst errors may occur 12/18/2023 Dietary counseling and surveillance (ICD-10 - Z71.3) #Weight Management 12/18/2023 Labs reviewed from [facility] September 2023 thriving Given ongoing weight loss this may be a recurrent problem until her weight stabilizes 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 vat tender and rechecking labs every 4 weeks [...] minimum of 6 months The most recent [place] [employer] of clinical endocrinologists and [place] [employer] of endocrinology guidelines recommend patients who [...] software and direct typing Please excuse inadvertent signal intelligence analyst or typing errors, or uncorrected word substitutions Although every attempt has been made by the provider to proofread this document, occasional misspellings and typographical errors may still be present Due to the previous pandemic, and the use of personal protective equipment (PPE) This may decrease voice recognition accuracy Inadvertent signal intelligence analyst errors may occur 03/17/2024 Dietary counseling and [...] minimum of 6 months The most recent [place] [employer] of clinical endocrinologists and [place] [employer] endocrinology guidelines recommend patients who [...] software and direct typing Please excuse inadvertent signal intelligence analyst or typing errors, or uncorrected word substitutions Although every attempt has been made by the provider to proofread this document, occasional misspellings and typographical errors may still be present Due to the previous pandemic, and the use of personal protective equipment (PPE) This may decrease voice recognition accuracy Inadvertent signal intelligence analyst errors may occur 05/05/2024 Dietary counseling and [...] software and direct typing Please excuse inadvertent signal intelligence analyst or typing errors, or uncorrected word substitutions Although every attempt has been made by the provider to proofread this document, occasional misspellings and typographical errors may still be present Due to the previous pandemic, and the use of personal protective equipment (PPE) This may decrease voice recognition accuracy Inadvertent signal intelligence analyst errors may occur 06/22/2024 Type 2 diabetes [...] software and direct typing Please excuse inadvertent signal intelligence analyst or typing errors, or uncorrected word substitutions Although every attempt has been made by the provider to proofread this document, occasional misspellings and typographical errors may still be present Due to the previous pandemic, and the use of personal protective equipment (PPE) This may decrease voice recognition accuracy Inadvertent signal intelligence analyst errors may occur 06/22/2024 Graves disease (ICD-10 [...] software and direct typing Please excuse inadvertent signal intelligence analyst or typing errors, or uncorrected word substitutions Although every attempt has been made by the provider to proofread this document, occasional misspellings and typographical errors may still be present Due to the previous pandemic, and the use of personal protective equipment (PPE) This may decrease voice recognition accuracy Inadvertent signal intelligence analyst errors may occur 05/05/2024 Type 2 diabetes [...] software and direct typing Please excuse inadvertent signal intelligence analyst or typing errors, or uncorrected word substitutions Although every attempt has been made by the provider to proofread this document, occasional misspellings and typographical errors may still be present Due to the previous pandemic, and the use of personal protective equipment (PPE) This may decrease voice recognition accuracy Inadvertent signal intelligence analyst errors may occur 12/18/2023 Type 2 diabetes mellitus without complication, without long-term current use of insulin (ICD-10 - E11.9) #Weight Management 12/18/2023 Labs reviewed from [facility] September 2023 thriving Given ongoing weight loss this may be a recurrent problem until her weight stabilizes 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 vat tender and rechecking labs every 4 weeks [...] minimum of 6 months The most recent [place] [employer] of clinical endocrinologists and [place] [employer] of endocrinology guidelines recommend patients who [...] software and direct typing Please excuse inadvertent signal intelligence analyst or typing errors, or uncorrected word substitutions Although every attempt has been made by the provider to proofread this document, occasional misspellings and typographical errors may still be present Due to the previous pandemic, and the use of personal protective equipment (PPE) This may decrease voice recognition accuracy Inadvertent signal intelligence analyst errors may occur 03/17/2024 Type 2 diabetes [...] minimum of 6 months The most recent [place] [employer] of clinical endocrinologists and [place] [employer] endocrinology guidelines recommend patients who [...] software and direct typing Please excuse inadvertent signal intelligence analyst or typing errors, or uncorrected word substitutions Although every attempt has been made by the provider to proofread this document, occasional misspellings and typographical errors may still be present Due to the previous pandemic, and the use of personal protective equipment (PPE) This may decrease voice recognition accuracy Inadvertent signal intelligence analyst errors may occur 10/16/2023 Type 2 diabetes mellitus without complication, without long-term current use of insulin (ICD-10 - E11.9) #Weight Management 10/16/2023 Labs reviewed from [facility] September 2023 thriving Given ongoing weight loss this may be a recurrent problem until her weight stabilizes 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 vat tender and rechecking labs every 4 weeks [...] minimum of 6 months The most recent [place] [employer] of clinical endocrinologists and [place] [employer]inology guidelines recommend patients who [...] track activity level. Consider using apps like [facility], [employer], lose it, stick as needed for self-monitoring and weight management. Consider group exercises. Consider hiring a personal care aide. Regular exercise is carvalho to sustainable health [...] counseling and psychiatry and Dr Andres at [facility]. We would like to cover regular topics [...] software and direct typing Please excuse inadvertent signal intelligence analyst or typing errors, or uncorrected word substitutions Although every attempt has been made by the provider to proofread this document, occasional misspellings and typographical errors may still be present Due to the previous pandemic, and the use of personal protective equipment (PPE) This may decrease voice recognition accuracy Inadvertent signal intelligence analyst errors may occur 10/16/2023 Graves disease (ICD-10 - E05.00) #Weight Management 10/16/2023 Labs reviewed from [facility] September 2023 thriving Given ongoing weight loss this may be a recurrent problem until her weight stabilizes 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 vat tender and rechecking labs every 4 weeks [...] minimum of 6 months The most recent [place] [employer] of clinical endocrinologists and [place] [employer]inology guidelines recommend patients who [...] track activity level. Consider using apps like [facility], [employer], lose it, stick as needed for self-monitoring and weight management. Consider group exercises. Consider hiring a personal care aide. Regular exercise is carvalho to sustainable health [...] counseling and psychiatry and Dr Andres at [facility]. We would like to cover regular topics [...] software and direct typing Please excuse inadvertent signal intelligence analyst or typing errors, or uncorrected word substitutions Although every attempt has been made by the provider to proofread this document, occasional misspellings and typographical errors may still be present Due to the previous pandemic, and the use of personal protective equipment (PPE) This may decrease voice recognition accuracy Inadvertent signal intelligence analyst errors may occur 03/17/2024 Graves disease (ICD-10 [...] minimum of 6 months The most recent [place] [employer] endocrinologists and [place] [employer] guidelines recommend patients who [...] software and direct typing Please excuse inadvertent signal intelligence analyst or typing errors, or uncorrected word substitutions Although every attempt has been made by the provider to proofread this document, occasional misspellings and typographical errors may still be present Due to the previous pandemic, and the use of personal protective equipment (PPE) This may decrease voice recognition accuracy Inadvertent signal intelligence analyst errors may occur 12/18/2023 Graves disease (ICD-10 - E05.00) #Weight Management 12/18/2023 Labs reviewed from [facility] September 2023 thriving Given ongoing weight loss this may be a recurrent problem until her weight stabilizes 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 vat tender and rechecking labs every 4 weeks [...] minimum of 6 months The most recent [place] [employer] of [employer]ocrinologists and [place] [employer] guidelines recommend patients who [...] software and direct typing Please excuse inadvertent signal intelligence analyst or typing errors, or uncorrected word substitutions Although every attempt has been made by the provider to proofread this document, occasional misspellings and typographical errors may still be present Due to the previous pandemic, and the use of personal protective equipment (PPE) This may decrease voice recognition accuracy Inadvertent signal intelligence analyst errors may occur 05/05/2024 Graves disease (ICD-10 [...] software and direct typing Please excuse inadvertent signal intelligence analyst or typing errors, or uncorrected word substitutions Although every attempt has been made by the provider to proofread this document, occasional misspellings and typographical errors may still be present Due to the previous pandemic, and the use of personal protective equipment (PPE) This may decrease voice recognition accuracy Inadvertent signal intelligence analyst errors may occur 06/22/2024 Chronic anticoagulation (ICD-10 [...] software and direct typing Please excuse inadvertent signal intelligence analyst or typing errors, or uncorrected word substitutions Although every attempt has been made by the provider to proofread this document, occasional misspellings and typographical errors may still be present Due to the previous pandemic, and the use of personal protective equipment (PPE) This may decrease voice recognition accuracy Inadvertent signal intelligence analyst errors may occur 06/22/2024 PAF (paroxysmal atrial [...] software and direct typing Please excuse inadvertent signal intelligence analyst or typing errors, or uncorrected word substitutions Although every attempt has been made by the provider to proofread this document, occasional misspellings and typographical errors may still be present Due to the previous pandemic, and the use of personal protective equipment (PPE) This may decrease voice recognition accuracy Inadvertent signal intelligence analyst errors may occur 03/17/2024 Chronic anticoagulation (ICD-10 [...] minimum of 6 months The most recent [place] [employer] of clinical endocrinologists and [place] [employer] guidelines recommend patients who [...] software and direct typing Please excuse inadvertent signal intelligence analyst or typing errors, or uncorrected word substitutions Although every attempt has been made by the provider to proofread this document, occasional misspellings and typographical errors may still be present Due to the previous pandemic, and the use of personal protective equipment (PPE) This may decrease voice recognition accuracy Inadvertent signal intelligence analyst errors may occur 05/05/2024 Chronic anticoagulation (ICD-10 [...] software and direct typing Please excuse inadvertent signal intelligence analyst or typing errors, or uncorrected word substitutions Although every attempt has been made by the provider to proofread this document, occasional misspellings and typographical errors may still be present Due to the previous pandemic, and the use of personal protective equipment (PPE) This may decrease voice recognition accuracy Inadvertent signal intelligence analyst errors may occur 12/18/2023 Chronic anticoagulation (ICD-10 - Z79.01) #Weight Management 12/18/2023 Labs reviewed from [facility] September 2023 thriving Given ongoing weight loss this may be a recurrent problem until her weight stabilizes 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 vat tender and rechecking labs every 4 weeks [...] minimum of 6 months The most recent [place] [employer] of clinical endocrinologists and [place] [employer] guidelines recommend patients who [...] software and direct typing Please excuse inadvertent signal intelligence analyst or typing errors, or uncorrected word substitutions Although every attempt has been made by the provider to proofread this document, occasional misspellings and typographical errors may still be present Due to the previous pandemic, and the use of personal protective equipment (PPE) This may decrease voice recognition accuracy Inadvertent signal intelligence analyst errors may occur 10/16/2023 Chronic anticoagulation (ICD-10 - Z79.01) #Weight Management 10/16/2023 Labs reviewed from [facility] September 2023 thriving Given ongoing weight loss this may be a recurrent problem until her weight stabilizes 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 vat tender and rechecking labs every 4 weeks [...] minimum of 6 months The most recent [place] [employer] of clinical endocrinologists and [place] [employer] guidelines recommend patients who [...] track activity level. Consider using apps like [facility], [employer]fitnesspal, lose it, stick as needed for self-monitoring and weight management. Consider group exercises. Consider hiring a personal care aide. Regular exercise is carvalho to sustainable health [...] counseling and psychiatry and Dr Andres at [facility]. We would like to cover regular topics [...] software and direct typing Please excuse inadvertent signal intelligence analyst or typing errors, or uncorrected word substitutions Although every attempt has been made by the provider to proofread this document, occasional misspellings and typographical errors may still be present Due to the previous pandemic, and the use of personal protective equipment (PPE) This may decrease voice recognition accuracy Inadvertent signal intelligence analyst errors may occur 10/16/2023 PAF (paroxysmal atrial fibrillation) (ICD-10 - I48.0) #Weight Management 10/16/2023 Labs reviewed from [facility] September 2023 thriving Given ongoing weight loss this may be a recurrent problem until her weight stabilizes 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 vat tender and rechecking labs every 4 weeks [...] minimum of 6 months The most recent [place] [employer] of clinical endocrinologists and [place] [employer] guidelines recommend patients who [...] track activity level. Consider using apps like [facility], [employer]pal, lose it, stick as needed for self-monitoring and weight management. Consider group exercises. Consider hiring a personal care aide. Regular exercise is carvalho to sustainable health [...] counseling and psychiatry and Dr Andres at [facility]. We would like to cover regular topics [...] software and direct typing Please excuse inadvertent signal intelligence analyst or typing errors, or uncorrected word substitutions Although every attempt has been made by the provider to proofread this document, occasional misspellings and typographical errors may still be present Due to the previous pandemic, and the use of personal protective equipment (PPE) This may decrease voice recognition accuracy Inadvertent signal intelligence analyst errors may occur 12/18/2023 PAF (paroxysmal atrial fibrillation) (ICD-10 - I48.0) #Weight Management 12/18/2023 Labs reviewed from [facility] September 2023 thriving Given ongoing weight loss this may be a recurrent problem until her weight stabilizes 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 vat tender and rechecking labs every 4 weeks [...] minimum of 6 months The most recent [place] [employer] of clinical endocrinologists and [place] [employer] guidelines recommend patients who [...] software and direct typing Please excuse inadvertent signal intelligence analyst or typing errors, or uncorrected word substitutions Although every attempt has been made by the provider to proofread this document, occasional misspellings and typographical errors may still be present Due to the previous pandemic, and the use of personal protective equipment (PPE) This may decrease voice recognition accuracy Inadvertent signal intelligence analyst errors may occur 03/17/2024 PAF (paroxysmal atrial [...] minimum of 6 months The most recent [place] [employer] of clinical endocrinologists and [place] [employer] guidelines recommend patients who [...] software and direct typing Please excuse inadvertent signal intelligence analyst or typing errors, or uncorrected word substitutions Although every attempt has been made by the provider to proofread this document, occasional misspellings and typographical errors may still be present Due to the previous pandemic, and the use of personal protective equipment (PPE) This may decrease voice recognition accuracy Inadvertent signal intelligence analyst errors may occur 05/05/2024 PAF (paroxysmal atrial [...] software and direct typing Please excuse inadvertent signal intelligence analyst or typing errors, or uncorrected word substitutions Although every attempt has been made by the provider to proofread this document, occasional misspellings and typographical errors may still be present Due to the previous pandemic, and the use of personal protective equipment (PPE) This may decrease voice recognition accuracy Inadvertent signal intelligence analyst errors may occur 06/22/2024 NICHOLE (obstructive sleep [...] software and direct typing Please excuse inadvertent signal intelligence analyst or typing errors, or uncorrected word substitutions Although every attempt has been made by the provider to proofread this document, occasional misspellings and typographical errors may still be present Due to the previous pandemic, and the use of personal protective equipment (PPE) This may decrease voice recognition accuracy Inadvertent signal intelligence analyst errors may occur 05/05/2024 NICHOLE (obstructive sleep [...] software and direct typing Please excuse inadvertent signal intelligence analyst or typing errors, or uncorrected word substitutions Although every attempt has been made by the provider to proofread this document, occasional misspellings and typographical errors may still be present Due to the previous pandemic, and the use of personal protective equipment (PPE) This may decrease voice recognition accuracy Inadvertent signal intelligence analyst errors may occur 06/22/2024 Sensorineural hearing loss [...] software and direct typing Please excuse inadvertent signal intelligence analyst or typing errors, or uncorrected word substitutions Although every attempt has been made by the provider to proofread this document, occasional misspellings and typographical errors may still be present Due to the previous pandemic, and the use of personal protective equipment (PPE) This may decrease voice recognition accuracy Inadvertent signal intelligence analyst errors may occur 03/17/2024 NICHOLE (obstructive sleep [...] minimum of 6 months The most recent [place] [employer] of clinical endocrinologists and [place] [employer] guidelines recommend patients who [...] software and direct typing Please excuse inadvertent signal intelligence analyst or typing errors, or uncorrected word substitutions Although every attempt has been made by the provider to proofread this document, occasional misspellings and typographical errors may still be present Due to the previous pandemic, and the use of personal protective equipment (PPE) This may decrease voice recognition accuracy Inadvertent signal intelligence analyst errors may occur 12/18/2023 NICHOLE (obstructive sleep apnea) (ICD-10 - G47.33) #Weight Management 12/18/2023 Labs reviewed from [facility] September 2023 thriving Given ongoing weight loss this may be a recurrent problem until her weight stabilizes 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 vat tender and rechecking labs every 4 weeks [...] minimum of 6 months The most recent [place] [employer] of clinical endocrinologists and [place] [employer] guidelines recommend patients who [...] software and direct typing Please excuse inadvertent signal intelligence analyst or typing errors, or uncorrected word substitutions Although every attempt has been made by the provider to proofread this document, occasional misspellings and typographical errors may still be present Due to the previous pandemic, and the use of personal protective equipment (PPE) This may decrease voice recognition accuracy Inadvertent signal intelligence analyst errors may occur 10/16/2023 NICHOLE (obstructive sleep apnea) (ICD-10 - G47.33) #Weight Management 10/16/2023 Labs reviewed from [facility] September 2023 thriving Given ongoing weight loss this may be a recurrent problem until her weight stabilizes 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 vat tender and rechecking labs every 4 weeks [...] minimum of 6 months The most recent [place] [employer] of clinical endocrinologists and [place] [employer] guidelines recommend patients who [...] track activity level. Consider using apps like [facility], [employer]pal, lose it, stick as needed for self-monitoring and weight management. Consider group exercises. Consider hiring a personal care aide. Regular exercise is carvalho to sustainable health [...] counseling and psychiatry and Dr Andres at [facility]. We would like to cover regular topics [...] software and direct typing Please excuse inadvertent signal intelligence analyst or typing errors, or uncorrected word substitutions Although every attempt has been made by the provider to proofread this document, occasional misspellings and typographical errors may still be present Due to the previous pandemic, and the use of personal protective equipment (PPE) This may decrease voice recognition accuracy Inadvertent signal intelligence analyst errors may occur Plan Of Treatment Pending Test Test Name Order Date Bone Density 05/05/2024 Next Appt Details Provider Name:MADDIE REYES, 08/20/2024 08:45:00 AM, [address] [facility], [facility] [address], [place], [address], Insurance Providers Payer Name Payer Address Payer Phone Subscriber Number Group Number Insured Name Patient Relationship to Insured Coverage Start Date Coverage End Date [employer] [facility] [address] [place] [phone] [id number] Corazon Cortez Self - patient is the insured Medical (General) History Medical History History ICD Code diabetes mellitus graves disease afib gastroesophageal reflux disease (GERD) hyperlipidemia asthma sleep apnea Surgical History Surgery Date(Month/Year) cholecystectomy umbilical hernia repair arthroscopic knee surgery left partial hysterectomy Hospitalization History Reason Date(Month/Year) cardioversion x 3 episodes (01/2022, 2020, 09/2019)
== END 2024-08-12 09:38 | disposition home or self-care (01) ==
LOC: HO.MAMMO 09:37
PROVIDERS: PCP Nurse Practitioner Acute Care; Visit Provider Internal Medicine
DX: Z12.31 Encounter for screening mammogram for malignant neoplasm of breast (principal)
CPT/HCPCS: 77063; 77067

== ENCOUNTER → 2024-08-12 09:45 | Outpatient (BNV) | payer BC, SELFPAY | PROVIDERS: PCP Nurse Practitioner Acute Care; Visit Provider Internal Medicine | DX: Z12.31 Encounter for screening mammogram for malignant neoplasm of breast (principal) | CPT/HCPCS: 77063; 77067 ==

== ENCOUNTER 2024-09-22 10:21 | Outpatient (AMB) | payer BC, SELFPAY ==
--- NOTE | 2024-09-22 10:40 | MHC.OFFVIS ---
Vital Signs 09/22/24 10:43 Height 5 ft 8 in Weight 294 lb BMI 44.7 BP 130/68 Intake Visit Reasons: skin check Workplace Rehabilitation Officer: Workplace Rehabilitation Officer Present (YOJANA Cartwright ) Accompanied by: Self / Same As Patient Allergies No Known Allergies Allergy (Verified 07/07/24 13:49) HPI Comments Details: Patient is here today for a follow up skin check history of chronic itching, previous visit was given corticosteroids per taper dosing and now is using p.r.n. for symptoms. 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 Assessment & Plan Assessment & Plan (1) Vulvar itching: Code(s): L29.2 - Pruritus vulvae Plan Discussed: Based on physical assessment today, I recommend to have multiple vulvar biopsies of the area. Patient requests to be rescheduled she has not ready to have the biopsies today, she will be scheduled for the procedure before leaving the office. The patient expressed understanding and agreement with the plan of care. All of her questions and concerns were addressed to the best of my ability. Coding Level of Care Code Est Pt Level 3 (45030) Diagnoses Vulvar itching L29.2
[2024-09-22 10:43] VITALS: BP 130/68; BMI 44.7
== END 2024-09-22 11:19 | disposition home or self-care (01) ==
LOC: HO.HWS 10:22
PROVIDERS: PCP Nurse Practitioner Acute Care; Visit Provider Advanced Practice Midwife
DX: L29.2 Pruritus vulvae (principal)
CPT/HCPCS: 99213

== ENCOUNTER 2024-10-26 06:27 | Outpatient (REF) | payer BC, SELFPAY ==
--- OUTSIDE RECORDS SUMMARY | 2024-04-09 05:30 | XMS_ITS ---
Author Organization [facility] Address [address] [place] [address] Care Team Providers Care Travel Physical Therapist Name Role Phone Sean MCKEE, Blaire Primary Care Provider Lily Corral [phone] Ma Encounters Encounter Location Date Provider Diagnosis [address] [address] 04/09/2024 Lily Toledo Plan Of Treatment Next Appt Details Provider Name:Lily freeman, 12/28/2024 03:00:00 PM, [address] [place], [address], Progress Notes * Ran BRISENOVladOB: [birth year] (54 yo F)Acc No.[id number]:04/09/2024 Progress Note Patient: Corazon CORDOVA Provider: Ramón Toledo DPM :1970 A ge:53 Y S ex:Female Date:04/09/2024 Address:[address] [place] Pcp:Blaire Estrada NP Subjective: * Chief Complaints: [...] 0 04/09/2024 Generated for Jeri Dowd/Ralph on: 0 10/26/2024 06:33 AM EDT
--- OUTSIDE RECORDS SUMMARY | 2024-04-16 08:45 | XMS_ITS ---
[facility] Organization [facility] Address [address] [facility] [place] [address] Care Team Providers Care Biztalk Consultant Name Role Phone Sean MCKEE, Blaire Primary Care Provider Lily Corral Unavailable [phone] Allergies Allergen (clinical drug ingredient) Drug/Non Drug [...] Active Encounters Encounter Location Date Provider Diagnosis [facility] [address] [address] 04/16/2024 Lily Toledo Plan Of Treatment Next Appt Details Provider Name:Lily freeman, 12/28/2024 03:00:00 PM, [address] [place] [address], [phone], Progress Notes * Lexi CORTEZOB: [birth year] (54 yo F)Acc No.[id number]:04/16/2024 Progress Note Patient: Corazon CORDOVA Provider: Ramón Toledo DPM :1970 A ge:53 Y S ex:Female Date:04/16/2024 Address:[address] [place], [place] [id number] Pcp:Blaire Estrada NP Subjective: * Chief Complaints: [...] 0 04/16/2024 Generated for Jeri hauser/Flores/Ralph on: 0 10/26/2024 06:33 AM EDT
--- OUTSIDE RECORDS SUMMARY | 2024-10-22 09:30 | XMS_ITS ---
[facility] Organization [facility] Address [address] [place] [address] Care Team Providers Care Clay Miller Name Role Phone Sean MCKEE, Blaire Primary Care Provider Lily Corral Unavailable [phone] Allergies Allergen (clinical drug ingredient) Drug/Non Drug Allergy documented on EMR Reaction Allergy Type Onset Date Status ibuprofen Advil on blood thinners Drug Allergy Active Aleve on blood thinners Drug Allergy Active Motrin on blood thinners Drug Allergy Active REASON FOR VISIT At Risk Footcare, Heel pain, Skin Problem Medications Medication SIG (Take, Route, [...] (M20.41,M20.42), Preulcerative Skin Lesion(s) (L85.1 09/20/2020 Not-Taking Compression Stockings 20-30mm Hg 1 pair wear daily; Duration: 30 days Active Ciclopirox Olamine 0.77 % 1 application to affected area Externally to feet Twice a day; Duration: 30 days Not-Taking metFORMIN HCl 500 MG as directed Orally Once a day Active Ketoconazole 2 % 1 application Apply a thin layer to externally to feet, even between toes Twice a day; Duration: 30 days Active Night Splint AFO - L1930 1 wear at rest; Duration: 30 days Active Extra Depth Orthopedic [...] Once a day; Duration: 30 day(s) Active Clotrimazole-Betamet hasone 1-0.05 % 1 application to affected area Externally Twice a day to affected areas on feet; Duration: 30 days 05/10/2022 Active Furosemide 20 MG 1 tablet Orally Once a day; Duration: 30 day(s) Active Mounjaro 15 MG/0.5ML as directed Subcutaneous Active Magnesium Active Vitamin B Complex - as directed Orally Active Contrave 8-90 MG 1 tablet in the morning Orally Once a day Active Vitamin C Active Social History Tobacco Use: Social History [...] ast year? No Points 0 Interpretation Negative Vital Signs Height 5ft 6in in 10/22/2024 Weight 292 lbs 10/22/2024 BMI 47.12 kg/m2 10/22/2024 Blood pressure systolic 120 mm Hg 10/23/19 25 Blood pressure diastolic 65 mm Hg 025 Encounters Encounter Location Date Provider Diagnosis [facility] [address] [place] [address] 10/22/2024 Lily Toledo Plantar fasciitis, bilateral M72.2 ; Tinea pedis of both feet B35.3 and Type 2 diabetes mellitus with polyneuropathy E11.42 Assessments Encounter Date Diagnosis (ICD Code) Assessment Notes Treatment Notes Treatment Clinical Notes Section Notes 10/22/2024 Plantar fasciitis, bilateral (ICD-10 - M72.2) 10/22/2024 Tinea pedis of both feet (ICD-10 - B35.3) 10/22/2024 Type 2 diabetes mellitus with polyneuropathy (ICD-10 - E11.42) Plan Of Treatment Medication Medication Name Sig Start Date Stop Date Notes Clotrimazole-Betamethasone 1-0.05 % 1 application to affected area Externally Twice a day to affected areas on feet; Duration: 30 days 05/10/2022 Next Appt Details Follow Up: 2 Months, Reason: Provider Name:Lily freeman, 12/28/2024 03:00:00 PM, [address] [place] [address], [id number], Procedure Notes * Category Sub-Category Detail Notes [...] at risk. Therefore, the benign hyperkeratotic lesions, (2) in total, locations as stated and described in the exam ( Medial plantar, TA, T5), were pared, and/or cut utilizing a sterile 15 blade, tissue nippers, and/or power dremel instrumentation by the physician of record - 29110 Nail Reduction Nail Reduction (-27) Trimming o [...] G0127 Progress Notes * Lexi CORTEZOB: [birth year] (54 yo F)Acc No.[id number]:10/22/2024 Progress Note Patient: Corazon CORDOVA Provider: Ramón Toledo DPM :1970 A ge:54 Y S ex:Female Date:10/22/2024 Address:[address] [place] [address] [address] [id number] Pcp:Blaire Estrada NP Subjective: * Chief Complaints: * A t Risk FootcareHeel painSkin Problem * HPI: A t Risk footcare: Pt States Last PCP Visit: D ate 0 08/16/2024 H eel pain: Nature: t enderness, sharp pain, stiffness. Location: P roximal plantar aspect of Heel , B/L. Duration: s everal months. Course: , improved, at approximately 75 percent. Aggravated: s tanding, walking, walking first thing in the morning/after rest. Treatments: r est/alter normal daily activity, ice, pre-fabricated orthoses, change in shoes, AFO-nightsplint. S kin problems: Nature: s caling , redness. Location: B /L . Duration: , several months. Course: w orse, , recurrent. Treatments: M edication ( Ketoconazole 2 percent cream ), Medication (Ciclopirox Olamine 0.77 Cream), Bdtrsovunahcs-Mfofclyagyqw-jqpzhl works the best. * ROS: G eneral/Constitutional: Nausea d enies. V omiting d enies. H yoel Thirst d enies. L oss appetite d enies. C hills d enies. F atigue d enies.?Fever d enies. N ight Sweats d enies. U nexplained weight loss d enies. U nexplained weight gain d enies. H EENTM: Dentures d enies. D izziness d enies. G lasses/contacts a dmits. R etinopathy d enies. B lurred/double vision d enies. T MJ?denies. D ischarge/drainage d enies. I mplants d enies. S ore throat d enies. D ental implants d enies. H yanira of hearing d enies. D ifficulty chewing/swallowing/speaking d enies. N ose bleeds d enies. S ore mouth d enies. ? R espiratory: On Oxygen d enies. P neumonia/pleurisy d enies.?Bronchitis d enies. E mphysema d enies. C oughing d enies. C ough blood?denies. S hortness of breath d enies. W heezing d enies. C ardiovascular: Pacemaker d enies. M YEAST WASHER d enies. W PW d enies. C HF d enies. H eart attack d enies. S eptal defect d enies. R apid beat d enies. C hest pain d enies. A trial Fib. d enies. M urmur/Palpitations d enies. G astrointestinal: Hemorrhoids d enies. S tomach/Abdominal pain d enies. D ark blood stool d enies. I rritable bowel d enies. C onstipation d enies. D iarrhea d enies. H ematology: Swelling a dmits. C lots d enies. V aricose Veins d enies. B ruising d enies. B leeding problem d enies. G enitourinary: Blood urine d enies. F requent/Painfu/urination/bladder control d enies. K idney stones d enies. I nfection (UTI) d enies. N ephropathy d enies. s ex trans dis (STD) d enies. P rostate d enies. M usculoskeletal: Hammertoes d enies. B unions d enies. B ack Pain d enies. M uscle Cramps/ Resting a dmits. M uscle cramps / walking d enies.?Generalized aches and pains a dmits. W eakness d enies. I nteg.: Shah d enies. S cars d enies. C orns/calluses?denies. I ngrown nails d enies. P ainful nails d enies. O pen Sores d enies. R ashes d enies. N eurologic: Difficulty sleeping d enies. B rain disorder d enies. N umbness a dmits. B alance trouble d enies. C onfusion d enies. F ainting/blackouts d enies. T ingling a dmits. T remors d enies. * Medical History: * Surgical History: g all bladder Hernia Repair Cardioversion 09/2019kn, meniscus sx left 11/30/2021 * Hospitalization/Major Diagno stic Procedure: b one density 05/18 * Family History: M other: , foot problems, diagnosed with Other malignant neoplasm of unspecified site, Diabetic - NIDDM, Unspecified essential hypertension, Unspecified heart disease, Family history of arthritis. F ather: , diagnosed with Diabetic - NIDDM. * Social History: T obacco Use: T obacco use other than smoking A re you an other tobacco user? N o Tobacco Control (Standard) T obacco use: N onsmoker A dditional Findings: Tobacco non-user C urrent nonsmoker M iscellaneous: C affeine: yes, unsweetened tea -1 soda a day. Children: yes, 1. Exercise: yes, walking. Marital status: . Occupation: [employer]. D rug/Alcohol: A PEDRO LUIS-C (Standard) D id you have a drink containing alcohol in the past year? N o P oints 0 I nterpretation N egative * Medications: T akingContrave 8-90 MG Tablet Extended Release 12 Hour [...] toe- knee high 1 pair wear daily Night Splint AFO - L1930 1 wear at rest Ketoconazole 2 % Cream 1 application Apply a thin layer to externally to feet, even between toes Twice a day metFORMIN HCl 500 MG Tablet as directed Orally Once a day Taking Contrave 8-90 MG Tablet Extended Release [...] knee high 1 pair wear daily Taking Night Splint AFO - L1930 1 wear at rest Taking Ketoconazole 2 % Cream 1 application Apply a thin layer to externally to feet, even between toes Twice a day Taking metFORMIN HCl 500 MG Tablet as directed Orally Once a day Not-Taking/PRNCiclopirox Olamine 0.77 % Cream 1 application to [...] reviewed and reconciled with the patient * Allergies: A dvil: on blood thinnersAleve: on blood thinnersMotrin: on blood thinnersyes[Allergies Verified] Objective: * Vitals: H t: 5ft 6in, Wt:292, BMI:47.12, Shoe size: 11w, BP:120/65mm Hg, BS: 106, Ht-cm: 167.64 cm, Wt-k.45 kg. * P ast Orders: L ab:HEMOGLOBIN A1C (GLYCOHEMOGLOBIN) (Order Date - 08/17/2024) (Collection Date & Time - 10/22/2024 01:21 PM) Value Reference Range HEMOGLOBIN A1C % (HH) 5.5 * Examination: O phthalmology Referral: DIABETES EYE EXAM P rocedure Performed: Y david D ate of Exam Performed 0 09/22/2024 D iabetic Retinopathy Screening: Y es F indings of Diabetic Eye Exam: n o retinopathy N eurological: SENSORY: ( Neuro) Neurological exam demonstrates a loss of protective sensation by an absence of tested sensitivity to 5.07 [place] monofilament at 2 or more sites out of 5 total locations, each foot. N ails: NAILS are: T A, T1, T2, T3, T4, T5, T6, T7, T8, T9, Elongated, overgrown, dystrophic. D ermatologic: SKIN FINDINGS: Skin exam reveals Keratotic lesion(s) located at, Medial plantar,IPJ, TA, T5, Skin STILL, shows sign(s) of, erythema, scaling, in a moccasin fashion, no fissure(s) present, B/L. O rthopedic: MUSCLE STRENGTH: 5 /5 all groups in a symmetrical fashion, B/L. FOOT MORPHOLOGY: Pes Planus structure, Decreased Ankle joint dorsiflexion ROM, knee extended. G eneral Examination: GENERAL APPEARANCE: Derek shipman a pleasant, alert, well nourished, well-developed, well hydrated individual, who demonstrates proper attention to hygiene/body habitus, and is in no acute distress, Pt serves as own historian for office visit today. ORIENTED: p erson, place, and time. FOOT EXAM: L ower Extremity Neurological Exam performed:?Yes V isual exam of foot performed: Y es D ate 0 10/22/2024 Footwear Evaluation F ootwear Evaluation performed: Y es V ascular: DP PULSES (B): 3 /4, B/L. PT PULSES (B): 3 /4, B/L. CAPILLARY FILL TIME: i mmediate, all digits, B/L. TROPHIC CONDITION-TEXTURE/ELASTICITY/TURGOR/HAIR GROWTH (B):?normal, B/L. TEMPERTURE GRADIENT (C): n ormal, warm to cool, proximal to distal, B/L, B/L. PIGMENTATION: n ormal, B/L. EDEMA (C): a bsent, B/L. H eel Pain: INSPECTION REVEALS: A pproximately 75 percent LESS, Pain on Palpation to Plantar Fascia med. and central bands, intrinsic musc., infra-calcaneal bursa, and med calc tubercle, B/L, No pain: posterior/superior heel, achilles bursa/tendon, sinus tarsi, peroneals, or with lateral heel compression; no limited STJ ROM, calor, or ecchymosis. Assessment: * Assessment: 1. T inea pedis of both feet - B35.3 (Primary) S pecify :Acute problem, Uncomplicated (3),Rx drug management (4) 2 . P lantar fasciitis, bilateral - M72.2 S pecify :Acute problem, Stable 3 . T ype 2 diabetes mellitus with polyneuropathy - E11.42 Plan: * Treatment: * Procedures: K eratoma Treatment: Parring or Cutting of Benign Hyperkeratotic Lesion(s) , (-56) 2-4 Lesions - Due to the at risk nature of the patients medical condition as documented in the exam findings, performance of this keratoderma treatment is medically necessary as its management by an unskilled/untrained nonprofessional would put this patients foot and overall health at risk. Therefore, the benign hyperkeratotic lesions, (2) in total, locations as stated and described in the exam ( Medial plantar, TA, T5), were pared, and/or cut utilizing a sterile 15 blade, tissue nippers, and/or power dremel instrumentation by the physician of record - [id number]. N ail Reduction: Nail Reduction ( -27) Trimming of all dystrophic nails - Due [...] healthy nail plate or bed tissue - G0127. * Procedure Codes: G 0127 TRIMMING DYSTROPHIC NAILS ANY #, Modifiers: XS 40576 TRIM SKIN LESIONS, 2 TO 4, Modifiers: XS * Preventive Medicine: Counseling: D iscussion: - 12: Office or other outpatient visit for the evaluation and management of an established patient, which required a medically appropriate history and/or examination and STRAIGHTFORWARD level of MEDICAL DECISION MAKING, 1 SELF-LIMITED OR MINOR PROBLEM, MINIMAL- NO AMOUNT/COMPLEXITY OF DATA TO BE REVIEWED/ANALYZED, AND MINIMAL RISK OF COMPLICATION/MORBIDITY. The visit on the day of the [...] have encouraged the patient to call the office. H eel pain: D iscussed other tx options for the patients condition, Given recent successful results to treatment, the patient wishes to continue with the present plan for their condition. P .R.I.C.E.: T he patient was counseled on the use of P.R.I.C.E. and NSAIDS (if well tolerated) to aid in the recovery from their painful condition. T inea Pedis: P REVENTIVE STRATEGIES were reviewed with the patient to avoid recurrent issues ., , Rx topical antifungal bid for 4 weeks. Screening/Special Tests: F all Risk Screening: N o falls in the past year F ALLS: Screening for Future Fall Risk Have you had any falls with injury in the past year? N o * Follow Up: 2 Months * Images: * Sign off status: Completed true * Provider: Ramón Toledo DPM Date: 10/22/2024 Generated for Jeri Dowd/Ralph on: 10/26/2024 06:33 AM EDT History and Physical Notes * HPI (History of Present Illness) Category Sub-Category Detail Notes Category Not es Heel pain Duration: several months Nature: tenderness, sharp pa in, stiffness Location: Proximal plantar asp ect of Heel , B/L Aggravated: standing, walking, w alking first thing in the morning/after rest Course: , improved, at appro ximately 75 percent Treatments: rest/alter normal da yg activity, ice, pre-fabricated orthoses, change in shoes, AFO-nightsplint Skin problems Nature: scaling , redness Location: B/L Duration: , several months Course: worse, , recurrent Treatments: Medication ( Ketocon azole 2 percent cream ), Medication (Ciclopirox Olamine 0.77 Cream), Gsjnxcajwhafu-Vscqmoyuktwk-oyrfje works the best At Risk footcare Pt States Last PCP Visit: Date: 5 Examination Category Sub-Category Detail Notes Category Not es Heel Pain INSPECTION REVEALS: Approximatel y 75 percent LESS, Pain on Palpation to Plantar Fascia med. and central bands, intrinsic musc., infra-calcaneal bursa, and med calc tubercle, B/L, No pain: posterior/superior heel, achilles bursa/tendon, sinus tarsi, peroneals, or with lateral heel compression; no limited STJ ROM, calor, or ecchymosis Neurological SENSORY: (Neuro) Neurolog ical exam demonstrates a loss of protective sensation by an absence of tested sensitivity to 5.07 [place] monofilament at 2 or more sites out of 5 total locations, each foot Dermatologic SKIN FINDINGS: Skin exam reveal s Keratotic lesion(s) located at, Medial plantar,IPJ, TA, T5, Skin STILL, shows sign(s) of, erythema, scaling, in a moccasin fashion, no fissure(s) present, B/L Orthopedic FOOT MORPHOLOGY: Pes Planus stru cture, [...] Visual exam of foot performed:: Yes Date: 10/22/2024 ORIENTED: person, place, and t talia Footwear Evaluation Footwear Evaluation performe d:: Yes Ophthalmology Referral DIABETES EYE EXAM Procedure Perform ed:: Yes Date of Exam Performed: 09/22/2024 Diabetic Retinopathy Screening:: Yes Findings of Diabetic [...]
--- OUTSIDE RECORDS SUMMARY | 2024-10-26 06:33 | XMS_ITS | Patient Health Record ---
Author Organization [facility] [address] Address [address] [place] [address] Care Team Providers Care Senior Net Architect Name Role Phone MADDIE REYES Unavailable [phone] Allergies Allergen (clinical drug ingredient) Drug/Non Drug Allergy documented on EMR Reaction Allergy Type Onset Date Status ibuprofen Ibuprofen Blood thinner Drug Allergy Act indigo Results Component Value Reference Range Notes BD BONE DENSITY DXA AXIAL SK ELETON Reviewed date:05/20/2024 08:56:43 AM Interpretation: Performing Lab: Notes/Report: Note See Note [facility], a member of [facility] Patient Name: CORAZON CORTEZ Date of : 1970 Reason for Exam: SCREENING Exam Date: 05/20/2024 [id number] EST Report Status: Final Ordering Provider: MADDIE [...] probability of hip fracture of 0.0%. Code 65687 -------- FINAL REPOR T -------- Dictated By: Rah Chamberlain Dictated Date: 05/20 08:31 ET Assigned Physician: Rah Chamberlain Reviewed and Electro nically Signed By: Rah Chamberlain Signed Date: 025 08:32 ET Workstation ID: [id number] Transcribed By: Self Edit Transcribed Date: 05/20/2024 08:31 ET Reason For Referral Reason Home Sleep Study ([facility]) Diagnosis 1 Obstructive apnea (G 47.33) Referral Organization [facility] [address] Referring Provider First Name MADDIE Referring Provider Last Name PHOEBEHOT Referring Provider Speciality Internal M edicine Referred Provider Specialty Pulmonology General Notes Alba Vail 01/2025 09:38:15 AM > Pt given phone [phone] to call and make an appt and referral form faxed to [phone] Clinical Notes Ursula Sanon 06/28 12:26:35 PM >can you resend referral to [facility] needs a insurance referral, Gomez Aquino 07/05/2024 09:43:16 AM > refaxed to [facility] Referral Priority Routine Reason [facility] Diagnosis 1 Sensorineural hearin g loss (SNHL) of both ears (H90.3) Referral Organization [facility] [address] Referring Provider First Name MADDIE Referring Provider Last Name BORHOT Referring Provider Speciality Internal M edicine Referred Provider Specialty Ear, nose an d throat surgeon General Notes Alba Vail 09/2024 10:30:29 AM > Pt given phone referral faxed to Referral Priority Routine Medications Medication SIG (Take, Route, Frequency, Duration) Notes Start Date End Date Status Magnesium Oxide 400 MG Oral; Duration: 30 Days Active methIMAzole 5 MG 1 tablet Oral Once e very other day; Duration: 90 days Active Furosemide 20 MG Oral; Duration: 30 Days Active dilTIAZem HCl ER Coated Beads 240 MG Oral; Duration: 30 Days Acti ve Vitamin B 12 500 MCG 1 tablet Orally Once a day Active Vitamin D (Cholecalciferol) 50 MCG (1999) 1 capsule Orally Once a day Active Vitamin C Active Ondansetron 4 MG 1 tablet on the tong ue and allow to dissolve prn nausea/vomiting Orally Once a day; Duration: 90 days 08/20/2024 Active Mounjaro 15 MG/0.5ML 15mg Subcutaneous w eekly; Duration: 30 days 03/10/2023 Active Eliquis 5 MG as directed Orally t wice a day; Duration: 90 days Active Contrave 8-90 MG Week 1, take 1 table t in the morning Week 2 take 1 tablet in the morning, 1 tablet in the evening Week 3 take 2 tablets in the morning, 1 tablet in the evening Week 4 onward 2 tablets in the morning, 2 tablets in the evening Orally twice a day; Duration: 30 days Active Flecainide Acetate 100 MG 0.5 tablet Ora l every 12 hrs; Duration: 90 days Active metFORMIN HCl ER 750 MG 1 tablet with ev ening meal Orally Once a day; Duration: 90 days Active Atorvastatin Calcium 10 MG 1 tablet Oral Once a day; Duration: 90 days Active Omeprazole 20 MG 1 capsule 1/2 to 1 h our before morning meal Oral Once a day; Duration: 90 days Active Social History Tobacco Use: Social History Observation Description Date Details (start date - stop date) Never Smoker NA - NA Tobacco Use/Smoking Question Answer Notes Are you a nonsmoker Problems Problem Type SNOMED Code ICD Code Onset Dates Problem Status W/U Status Risk Notes Problem Screening for osteoporosis (504277228) Encounter for screening for osteoporosis (Z13.820) Active confirmed Problem Morbid obesity (725349067) Morbid obesity (E66.01) Active confirmed Problem Obstructive sleep apnea syndrome (30521524) NICHOLE (obstructive sleep apnea) (G47.33) Active confirmed Problem Use of anticoagulation (820005611) Chronic anticoagulation (Z79.01) Active confirmed Problem Type II diabetes mellitus without complication (240867191) Type 2 diabetes mellitus without complication, without long-term current use of insulin (E11.9) Active confirmed Problem Body mass index 40+ - severely obese (407010338) BMI 50.0-59.9, adult (Z68.43) Active confirmed Problem Graves disease (598087963) Graves disease (E05.00) Active confirmed Problem Atrial fibrillation (36465042) PAF (paroxysmal atrial fibrillation) (I48.0) Active confirmed Problem Body mass index 40+ - severely obese (342852694) BMI 45.0-49.9, adult (Z68.42) Active confirmed Problem Sensorineural hearing loss, bilateral (041240022) Sensorineural hearing loss (SNHL) of both ears (H90.3) Active confirmed Problem Obstructive sleep apnea syndrome (12127605) Obstructive apnea (G47.33) Active confirmed Vital Signs Heart Rate 77 /min 10/01/2024 Oximetry 96 % 10/01/2024 Blood pressure diastolic 70 mm Hg 10/01/2024 Height 66 in 10/01/2024 Blood pressure systolic 120 mm Hg 10/01/2024 Weight 294.3 lbs 10/01/2024 BMI 47.5 kg/m2 10/01/2024 Encounters Encounter Location Date Provider Diagnosis [facility] [address] [address] 12/18/2023 MADDIE REYES Morbid obesity E66.0 1 ; BMI 45.0-49.9, adult Z68.42 ; Dietary counseling and surveillance Z71.3 ; Type 2 diabetes mellitus without complication, without long-term current use of insulin E11.9 ; Graves disease E05.00 ; Chronic anticoagulation Z79.01 ; PAF (paroxysmal atrial fibrillation) I48.0 and NICHOLE (obstructive sleep apnea) G47.33 [facility] [address] [address] 03/17/2024 MADDIECARMEN REYES Morbid obesity E66.0 1 ; BMI 45.0-49.9, adult Z68.42 ; Dietary counseling and surveillance Z71.3 ; Type 2 diabetes mellitus without complication, without long-term current use of insulin E11.9 ; Graves disease E05.00 ; Chronic anticoagulation Z79.01 ; PAF (paroxysmal atrial fibrillation) I48.0 and NICHOLE (obstructive sleep apnea) G47.33 [facility] [address] [address] 05/05/2024 MADDIE REYES Morbid obesity E66.0 1 ; BMI 45.0-49.9, adult Z68.42 ; Dietary counseling and surveillance Z71.3 ; Type 2 diabetes mellitus without complication, without long-term current use of insulin E11.9 ; Graves disease E05.00 ; Chronic anticoagulation Z79.01 ; PAF (paroxysmal atrial fibrillation) I48.0 and NICHOLE (obstructive sleep apnea) G47.33 [facility] [address] [address] 06/22/2024 MADDIE [facility] Morbid obesity E66.0 1 ; BMI 45.0-49.9, adult Z68.42 ; Dietary counseling and surveillance Z71.3 ; Type 2 diabetes mellitus without complication, without long-term current use of insulin E11.9 ; Graves disease E05.00 ; Chronic anticoagulation Z79.01 ; PAF (paroxysmal atrial fibrillation) I48.0 ; NICHOLE (obstructive sleep apnea) G47.33 and Sensorineural hearing loss (SNHL) of both ears H90.3 [facility] [address] [address] 08/20/2024 [facility] Morbid obesity E66.0 1 ; Annual physical exam Z00.00 ; BMI 45.0-49.9, adult Z68.42 ; Dietary counseling and surveillance Z71.3 ; Type 2 diabetes mellitus without complication, without long-term current use of insulin E11.9 ; Graves disease E05.00 ; Chronic anticoagulation Z79.01 ; PAF (paroxysmal atrial fibrillation) I48.0 ; NICHOLE (obstructive sleep apnea) G47.33 ; Sensorineural hearing loss (SNHL) of both ears H90.3 and Encounter for examination of blood pressure without abnormal findings Z01.30 [facility] [address] [address] 10/01/2024 MADDIE [facility] Morbid obesity E66.0 1 ; BMI 45.0-49.9, adult Z68.42 ; Dietary counseling and surveillance Z71.3 ; Type 2 diabetes mellitus without complication, without long-term current use of insulin E11.9 ; Graves disease E05.00 ; Chronic anticoagulation Z79.01 ; PAF (paroxysmal atrial fibrillation) I48.0 ; NICHOLE (obstructive sleep apnea) G47.33 ; Sensorineural hearing loss (SNHL) of both ears H90.3 and Encounter for examination of blood pressure without abnormal findings Z01.30 [facility] [address] [address] 11/07/2023 MADDIE BRISENOT [facility] [address] 11/12/2023 MADDIE REYES Morbid obesity E66.0 1 [facility] [address] [address] 04/19/2024 MADDIE PHOEBEHOT [facility] [address] 05/05/2024 MADDIE REYES Encounter for screen ing for osteoporosis Z13.[address] [facility] [address] [place] [address] 05/20/2024 MADDIE BORHOT [facility] [address] 06/28/2024 MADD[address] BORHOT [facility] [address] [place] [address] 07/02/2024 MADDIE BORHOT [facility] [address] [place] [address] 08/20/2024 MADDIE REYES Annual physical exam Z00.00 [facility] [address] [address] 06/26/2024 MADDIE BORHOT [facility] [address] 07/02/2024 MADDIE BORHOT [facility] [address] 07/03/2024 MADDIE BORHOT [facility] [address] 07/05/2024 MADDIE BORHOT [facility] [address] 07/06/2024 MADDIE BORHOT [facility] [address] 08/21/2024 MADDIE SANDHUHOT [facility] [address] /07/2025 MADDIE REYES Annual physical exam Z00.00 [facility] [address] [place] [address] 08/31/2024 MADDIE REYES Annual physical exam Z00.00 Assessments Encounter Date Diagnosis (ICD Code) Assessment Notes Treatment Notes Treatment Clinical Notes Section Notes 11/12/2023 Morbid obesity (ICD-10 - E66.01) 12/18/2023 Morbid obesity (ICD-10 - E66.01) #Weight Management 12/18/2023 Labs reviewed from [facility] September 2023 thriving Given ongoing weight loss this may be a recurrent problem until her weight stabilizes 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 technician automatic and rechecking labs every 4 weeks or [...] minimum of 6 months The most recent [employer] of clinical endocrinologists and [employer] endocrin[employer] guidelines recommend patients who [...] software and direct typing Please excuse inadvertent engine repairer service or typing errors, or uncorrected word substitutions Although every attempt has been made by the provider to proofread this document, occasional misspellings and typographical errors may still be present Due to the previous pandemic, and the use of personal protective equipment (PPE) This may decrease voice recognition accuracy Inadvertent engine repairer service errors may occur 03/17/2024 Morbid obesity (ICD-10 [...] minimum of 6 months The most recent [employer] of clinical endocrinologists and [employer] endocrin[employer] guidelines recommend patients who [...] software and direct typing Please excuse inadvertent engine repairer service or typing errors, or uncorrected word substitutions Although every attempt has been made by the provider to proofread this document, occasional misspellings and typographical errors may still be present Due to the previous pandemic, and the use of personal protective equipment (PPE) This may decrease voice recognition accuracy Inadvertent engine repairer service errors may occur 05/05/2024 Morbid obesity (ICD-10 [...] software and direct typing Please excuse inadvertent engine repairer service or typing errors, or uncorrected word substitutions Although every attempt has been made by the provider to proofread this document, occasional misspellings and typographical errors may still be present Due to the previous pandemic, and the use of personal protective equipment (PPE) This may decrease voice recognition accuracy Inadvertent engine repairer service errors may occur 05/05/2024 Encounter for screening [...] software and direct typing Please excuse inadvertent engine repairer service or typing errors, or uncorrected word substitutions Although every attempt has been made by the provider to proofread this document, occasional misspellings and typographical errors may still be present Due to the previous pandemic, and the use of personal protective equipment (PPE) This may decrease voice recognition accuracy Inadvertent engine repairer service errors may occur 06/22/2024 BMI 45.0-49.9, adult [...] software and direct typing Please excuse inadvertent engine repairer service or typing errors, or uncorrected word substitutions Although every attempt has been made by the provider to proofread this document, occasional misspellings and typographical errors may still be present Due to the previous pandemic, and the use of personal protective equipment (PPE) This may decrease voice recognition accuracy Inadvertent engine repairer service errors may occur 08/20/2024 Morbid obesity (ICD-10 - E66.01) Acute Concerns/Problem List: 08/20/2024 Labs reviewed and stable Stable on 15 mg of Zepbound Goal is to have BMI under 45 so she can get a left total knee replacement, recently got steroid injections with [facility] Sleep study later in the summer She is euthyroid chemically Scheduled for updated sleep study She is also working with orthopedic surgery, [...] software and direct typing Please excuse inadvertent engine repairer service or typing errors, or uncorrected word substitutions Although every attempt has been made by the provider to proofread this document, occasional misspellings and typographical errors may still be present Due to the previous pandemic, and the use of personal protective equipment (PPE) This may decrease voice recognition accuracy Inadvertent engine repairer service errors may occur 08/20/2024 Annual physical exam (ICD-10 - Z00.00) Acute Concerns/Problem List: 08/20/2024 Labs reviewed and stable Stable on 15 mg of Zepbound Goal is to have BMI under 45 so she can get a left total knee replacement, recently got steroid injections with [facility] Sleep study later in the summer She is euthyroid chemically Scheduled for updated sleep study She is also working with orthopedic surgery, [...] software and direct typing Please excuse inadvertent engine repairer service or typing errors, or uncorrected word substitutions Although every attempt has been made by the provider to proofread this document, occasional misspellings and typographical errors may still be present Due to the previous pandemic, and the use of personal protective equipment (PPE) This may decrease voice recognition accuracy Inadvertent engine repairer service errors may occur 08/20/2024 Annual physical exam (ICD-10 - Z00.00) 08/30/2024 Annual physical exam (ICD-10 - Z00.00) 08/31/2024 Annual physical exam (ICD-10 - Z00.00) 10/01/2024 Morbid obesity (ICD-10 - E66.01) #Weight Management 10/01/2024 Stable on 15 mg of Zepbound Goal is to have BMI under 45 so she can get a left total knee replacement, recently got steroid injections with [facility] She is euthyroid chemically Scheduled for updated sleep study 10/18/2024 She is also working with orthopedic surgery, she is getting injections in her knee ENT for hearing loss Total time spent today was 30 minutes [...] software and direct typing Please excuse inadvertent engine repairer service or typing errors, or uncorrected word substitutions Although every attempt has been made by the provider to proofread this document, occasional misspellings and typographical errors may still be present Due to the previous pandemic, and the use of personal protective equipment (PPE) This may decrease voice recognition accuracy Inadvertent engine repairer service errors may occur 08/20/2024 BMI 45.0-49.9, adult (ICD-10 - Z68.42) Acute Concerns/Problem List: 08/20/2024 Labs reviewed and stable Stable on 15 mg of Zepbound Goal is to have BMI under 45 so she can get a left total knee replacement, recently got steroid injections with [facility] Sleep study later in the summer She is euthyroid chemically Scheduled for updated sleep study She is also working with orthopedic surgery, [...] software and direct typing Please excuse inadvertent engine repairer service or typing errors, or uncorrected word substitutions Although every attempt has been made by the provider to proofread this document, occasional misspellings and typographical errors may still be present Due to the previous pandemic, and the use of personal protective equipment (PPE) This may decrease voice recognition accuracy Inadvertent engine repairer service errors may occur 06/22/2024 Dietary counseling and [...] software and direct typing Please excuse inadvertent engine repairer service or typing errors, or uncorrected word substitutions Although every attempt has been made by the provider to proofread this document, occasional misspellings and typographical errors may still be present Due to the previous pandemic, and the use of personal protective equipment (PPE) This may decrease voice recognition accuracy Inadvertent engine repairer service errors may occur 05/05/2024 BMI 45.0-49.9, adult [...] software and direct typing Please excuse inadvertent engine repairer service or typing errors, or uncorrected word substitutions Although every attempt has been made by the provider to proofread this document, occasional misspellings and typographical errors may still be present Due to the previous pandemic, and the use of personal protective equipment (PPE) This may decrease voice recognition accuracy Inadvertent engine repairer service errors may occur 03/17/2024 BMI 45.0-49.9, adult [...] minimum of 6 months The most recent [employer] of clinical endocrinologists and [employer]ocrin[employer] guidelines recommend patients who [...] software and direct typing Please excuse inadvertent engine repairer service or typing errors, or uncorrected word substitutions Although every attempt has been made by the provider to proofread this document, occasional misspellings and typographical errors may still be present Due to the previous pandemic, and the use of personal protective equipment (PPE) This may decrease voice recognition accuracy Inadvertent engine repairer service errors may occur 10/01/2024 BMI 45.0-49.9, adult (ICD-10 - Z68.42) #Weight Management 10/01/2024 Stable on 15 mg of Zepbound Goal is to have BMI under 45 so she can get a left total knee replacement, recently got steroid injections with [facility] She is euthyroid chemically Scheduled for updated sleep study 10/18/2024 She is also working with orthopedic surgery, she is getting injections in her knee ENT for hearing loss Total time spent today was 30 minutes [...] software and direct typing Please excuse inadvertent engine repairer service or typing errors, or uncorrected word substitutions Although every attempt has been made by the provider to proofread this document, occasional misspellings and typographical errors may still be present Due to the previous pandemic, and the use of personal protective equipment (PPE) This may decrease voice recognition accuracy Inadvertent engine repairer service errors may occur 12/18/2023 BMI 45.0-49.9, adult (ICD-10 - Z68.42) #Weight Management 12/18/2023 Labs reviewed from [facility] September 2023 thriving Given ongoing weight loss this may be a recurrent problem until her weight stabilizes 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 technician automatic and rechecking labs every 4 weeks or [...] minimum of 6 months The most recent [employer] of clinical endocrinologists and [employer] endocrinology guidelines recommend patients who [...] software and direct typing Please excuse inadvertent engine repairer service or typing errors, or uncorrected word substitutions Although every attempt has been made by the provider to proofread this document, occasional misspellings and typographical errors may still be present Due to the previous pandemic, and the use of personal protective equipment (PPE) This may decrease voice recognition accuracy Inadvertent engine repairer service errors may occur 12/18/2023 Dietary counseling and surveillance (ICD-10 - Z71.3) #Weight Management 12/18/2023 Labs reviewed from [facility] September 2023 thriving Given ongoing weight loss this may be a recurrent problem until her weight stabilizes 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 technician automatic and rechecking labs every 4 weeks or [...] minimum of 6 months The most recent [employer] of clinical endocrinologists and [employer]ocrinology guidelines recommend patients who [...] software and direct typing Please excuse inadvertent engine repairer service or typing errors, or uncorrected word substitutions Although every attempt has been made by the provider to proofread this document, occasional misspellings and typographical errors may still be present Due to the previous pandemic, and the use of personal protective equipment (PPE) This may decrease voice recognition accuracy Inadvertent engine repairer service errors may occur 03/17/2024 Dietary counseling and [...] minimum of 6 months The most recent [employer] of clinical endocrinologists and [employer] endocrinology guidelines recommend patients who [...] software and direct typing Please excuse inadvertent engine repairer service or typing errors, or uncorrected word substitutions Although every attempt has been made by the provider to proofread this document, occasional misspellings and typographical errors may still be present Due to the previous pandemic, and the use of personal protective equipment (PPE) This may decrease voice recognition accuracy Inadvertent engine repairer service errors may occur 10/01/2024 Dietary counseling and surveillance (ICD-10 - Z71.3) #Weight Management 10/01/2024 Stable on 15 mg of Zepbound Goal is to have BMI under 45 so she can get a left total knee replacement, recently got steroid injections with [facility] She is euthyroid chemically Scheduled for updated sleep study 10/18/2024 She is also working with orthopedic surgery, she is getting injections in her knee ENT for hearing loss Total time spent today was 30 minutes [...] software and direct typing Please excuse inadvertent engine repairer service or typing errors, or uncorrected word substitutions Although every attempt has been made by the provider to proofread this document, occasional misspellings and typographical errors may still be present Due to the previous pandemic, and the use of personal protective equipment (PPE) This may decrease voice recognition accuracy Inadvertent engine repairer service errors may occur 05/05/2024 Dietary counseling and [...] software and direct typing Please excuse inadvertent engine repairer service or typing errors, or uncorrected word substitutions Although every attempt has been made by the provider to proofread this document, occasional misspellings and typographical errors may still be present Due to the previous pandemic, and the use of personal protective equipment (PPE) This may decrease voice recognition accuracy Inadvertent engine repairer service errors may occur 06/22/2024 Type 2 diabetes [...] software and direct typing Please excuse inadvertent engine repairer service or typing errors, or uncorrected word substitutions Although every attempt has been made by the provider to proofread this document, occasional misspellings and typographical errors may still be present Due to the previous pandemic, and the use of personal protective equipment (PPE) This may decrease voice recognition accuracy Inadvertent engine repairer service errors may occur 08/20/2024 Dietary counseling and surveillance (ICD-10 - Z71.3) Acute Concerns/Problem List: 08/20/2024 Labs reviewed and stable Stable on 15 mg of Zepbound Goal is to have BMI under 45 so she can get a left total knee replacement, recently got steroid injections with [facility] Sleep study later in the summer She is euthyroid chemically Scheduled for updated sleep study She is also working with orthopedic surgery, [...] software and direct typing Please excuse inadvertent engine repairer service or typing errors, or uncorrected word substitutions Although every attempt has been made by the provider to proofread this document, occasional misspellings and typographical errors may still be present Due to the previous pandemic, and the use of personal protective equipment (PPE) This may decrease voice recognition accuracy Inadvertent engine repairer service errors may occur 08/20/2024 Type 2 diabetes mellitus without complication, without long-term current use of insulin (ICD-10 - E11.9) Acute Concerns/Problem List: 08/20/2024 Labs reviewed and stable Stable on 15 mg of Zepbound Goal is to have BMI under 45 so she can get a left total knee replacement, recently got steroid injections with [facility] Sleep study later in the summer She is euthyroid chemically Scheduled for updated sleep study She is also working with orthopedic surgery, [...] software and direct typing Please excuse inadvertent engine repairer service or typing errors, or uncorrected word substitutions Although every attempt has been made by the provider to proofread this document, occasional misspellings and typographical errors may still be present Due to the previous pandemic, and the use of personal protective equipment (PPE) This may decrease voice recognition accuracy Inadvertent engine repairer service errors may occur 06/22/2024 Graves disease (ICD-10 [...] software and direct typing Please excuse inadvertent engine repairer service or typing errors, or uncorrected word substitutions Although every attempt has been made by the provider to proofread this document, occasional misspellings and typographical errors may still be present Due to the previous pandemic, and the use of personal protective equipment (PPE) This may decrease voice recognition accuracy Inadvertent engine repairer service errors may occur 05/05/2024 Type 2 diabetes [...] software and direct typing Please excuse inadvertent engine repairer service or typing errors, or uncorrected word substitutions Although every attempt has been made by the provider to proofread this document, occasional misspellings and typographical errors may still be present Due to the previous pandemic, and the use of personal protective equipment (PPE) This may decrease voice recognition accuracy Inadvertent engine repairer service errors may occur 10/01/2024 Type 2 diabetes mellitus without complication, without long-term current use of insulin (ICD-10 - E11.9) #Weight Management 10/01/2024 Stable on 15 mg of Zepbound Goal is to have BMI under 45 so she can get a left total knee replacement, recently got steroid injections with [facility] She is euthyroid chemically Scheduled for updated sleep study 10/18/2024 She is also working with orthopedic surgery, she is getting injections in her knee ENT for hearing loss Total time spent today was 30 minutes [...] software and direct typing Please excuse inadvertent engine repairer service or typing errors, or uncorrected word substitutions Although every attempt has been made by the provider to proofread this document, occasional misspellings and typographical errors may still be present Due to the previous pandemic, and the use of personal protective equipment (PPE) This may decrease voice recognition accuracy Inadvertent engine repairer service errors may occur 12/18/2023 Type 2 diabetes mellitus without complication, without long-term current use of insulin (ICD-10 - E11.9) #Weight Management 12/18/2023 Labs reviewed from [facility] September 2023 thriving Given ongoing weight loss this may be a recurrent problem until her weight stabilizes 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 technician automatic and rechecking labs every 4 weeks or [...] minimum of 6 months The most recent [employer]ocrinologists and [employer] guidelines recommend patients who [...] software and direct typing Please excuse inadvertent engine repairer service or typing errors, or uncorrected word substitutions Although every attempt has been made by the provider to proofread this document, occasional misspellings and typographical errors may still be present Due to the previous pandemic, and the use of personal protective equipment (PPE) This may decrease voice recognition accuracy Inadvertent engine repairer service errors may occur 03/17/2024 Type 2 diabetes [...] minimum of 6 months The most recent [employer]ocrinologists and [employer] guidelines recommend patients who [...] software and direct typing Please excuse inadvertent engine repairer service or typing errors, or uncorrected word substitutions Although every attempt has been made by the provider to proofread this document, occasional misspellings and typographical errors may still be present Due to the previous pandemic, and the use of personal protective equipment (PPE) This may decrease voice recognition accuracy Inadvertent engine repairer service errors may occur 03/17/2024 Graves disease (ICD-10 [...] minimum of 6 months The most recent [employer]ocrinologists and [employer] guidelines recommend patients who [...] software and direct typing Please excuse inadvertent engine repairer service or typing errors, or uncorrected word substitutions Although every attempt has been made by the provider to proofread this document, occasional misspellings and typographical errors may still be present Due to the previous pandemic, and the use of personal protective equipment (PPE) This may decrease voice recognition accuracy Inadvertent engine repairer service errors may occur 12/18/2023 Graves disease (ICD-10 - E05.00) #Weight Management 12/18/2023 Labs reviewed from [facility] September 2023 thriving Given ongoing weight loss this may be a recurrent problem until her weight stabilizes She is working with technician automatic and rechecking labs every 4 weeks or [...] minimum of 6 months The most recent [employer]ocrinologists and [employer] guidelines recommend patients who [...] software and direct typing Please excuse inadvertent engine repairer service or typing errors, or uncorrected word substitutions Although every attempt has been made by the provider to proofread this document, occasional misspellings and typographical errors may still be present Due to the previous pandemic, and the use of personal protective equipment (PPE) This may decrease voice recognition accuracy Inadvertent engine repairer service errors may occur 10/01/2024 Graves disease (ICD-10 - E05.00) #Weight Management 10/01/2024 Stable on 15 mg of Zepbound Goal is to have BMI under 45 so she can get a left total knee replacement, recently got steroid injections with [facility] She is euthyroid chemically Scheduled for updated sleep study 10/18/2024 She is also working with orthopedic surgery, she is getting injections in her knee ENT for hearing loss Total time spent today was 30 minutes [...] software and direct typing Please excuse inadvertent engine repairer service or typing errors, or uncorrected word substitutions Although every attempt has been made by the provider to proofread this document, occasional misspellings and typographical errors may still be present Due to the previous pandemic, and the use of personal protective equipment (PPE) This may decrease voice recognition accuracy Inadvertent engine repairer service errors may occur 05/05/2024 Graves disease (ICD-10 [...] software and direct typing Please excuse inadvertent engine repairer service or typing errors, or uncorrected word substitutions Although every attempt has been made by the provider to proofread this document, occasional misspellings and typographical errors may still be present Due to the previous pandemic, and the use of personal protective equipment (PPE) This may decrease voice recognition accuracy Inadvertent engine repairer service errors may occur 06/22/2024 Chronic anticoagulation (ICD-10 [...] software and direct typing Please excuse inadvertent engine repairer service or typing errors, or uncorrected word substitutions Although every attempt has been made by the provider to proofread this document, occasional misspellings and typographical errors may still be present Due to the previous pandemic, and the use of personal protective equipment (PPE) This may decrease voice recognition accuracy Inadvertent engine repairer service errors may occur 08/20/2024 Graves disease (ICD-10 - E05.00) Acute Concerns/Problem List: 08/20/2024 Labs reviewed and stable Stable on 15 mg of Zepbound Goal is to have BMI under 45 so she can get a left total knee replacement, recently got steroid injections with [facility] Sleep study later in the summer She is euthyroid chemically Scheduled for updated sleep study She is also working with orthopedic surgery, [...] software and direct typing Please excuse inadvertent engine repairer service or typing errors, or uncorrected word substitutions Although every attempt has been made by the provider to proofread this document, occasional misspellings and typographical errors may still be present Due to the previous pandemic, and the use of personal protective equipment (PPE) This may decrease voice recognition accuracy Inadvertent engine repairer service errors may occur 08/20/2024 Chronic anticoagulation (ICD-10 - Z79.01) Acute Concerns/Problem List: 08/20/2024 Labs reviewed and stable Stable on 15 mg of Zepbound Goal is to have BMI under 45 so she can get a left total knee replacement, recently got steroid injections with [facility] Sleep study later in the summer She is euthyroid chemically Scheduled for updated sleep study She is also working with orthopedic surgery, [...] software and direct typing Please excuse inadvertent engine repairer service or typing errors, or uncorrected word substitutions Although every attempt has been made by the provider to proofread this document, occasional misspellings and typographical errors may still be present Due to the previous pandemic, and the use of personal protective equipment (PPE) This may decrease voice recognition accuracy Inadvertent engine repairer service errors may occur 06/22/2024 PAF (paroxysmal atrial [...] software and direct typing Please excuse inadvertent engine repairer service or typing errors, or uncorrected word substitutions Although every attempt has been made by the provider to proofread this document, occasional misspellings and typographical errors may still be present Due to the previous pandemic, and the use of personal protective equipment (PPE) This may decrease voice recognition accuracy Inadvertent engine repairer service errors may occur 03/17/2024 Chronic anticoagulation (ICD-10 [...] minimum of 6 months The most recent [employer]ocrinologists and [employer] guidelines recommend patients who [...] software and direct typing Please excuse inadvertent engine repairer service or typing errors, or uncorrected word substitutions Although every attempt has been made by the provider to proofread this document, occasional misspellings and typographical errors may still be present Due to the previous pandemic, and the use of personal protective equipment (PPE) This may decrease voice recognition accuracy Inadvertent engine repairer service errors may occur 05/05/2024 Chronic anticoagulation (ICD-10 [...] software and direct typing Please excuse inadvertent engine repairer service or typing errors, or uncorrected word substitutions Although every attempt has been made by the provider to proofread this document, occasional misspellings and typographical errors may still be present Due to the previous pandemic, and the use of personal protective equipment (PPE) This may decrease voice recognition accuracy Inadvertent engine repairer service errors may occur 10/01/2024 Chronic anticoagulation (ICD-10 - Z79.01) #Weight Management 10/01/2024 Stable on 15 mg of Zepbound Goal is to have BMI under 45 so she can get a left total knee replacement, recently got steroid injections with [facility] She is euthyroid chemically Scheduled for updated sleep study 10/18/2024 She is also working with orthopedic surgery, she is getting injections in her knee ENT for hearing loss Total time spent today was 30 minutes [...] software and direct typing Please excuse inadvertent engine repairer service or typing errors, or uncorrected word substitutions Although every attempt has been made by the provider to proofread this document, occasional misspellings and typographical errors may still be present Due to the previous pandemic, and the use of personal protective equipment (PPE) This may decrease voice recognition accuracy Inadvertent engine repairer service errors may occur 12/18/2023 Chronic anticoagulation (ICD-10 - Z79.01) #Weight Management 12/18/2023 Labs reviewed from [facility] September 2023 thriving Given ongoing weight loss this may be a recurrent problem until her weight stabilizes She is working with technician automatic and rechecking labs every 4 weeks or [...] minimum of 6 months The most recent [employer]ocrinologists and [employer] guidelines recommend patients who [...] software and direct typing Please excuse inadvertent engine repairer service or typing errors, or uncorrected word substitutions Although every attempt has been made by the provider to proofread this document, occasional misspellings and typographical errors may still be present Due to the previous pandemic, and the use of personal protective equipment (PPE) This may decrease voice recognition accuracy Inadvertent engine repairer service errors may occur 12/18/2023 PAF (paroxysmal atrial fibrillation) (ICD-10 - I48.0) #Weight Management 12/18/2023 Labs reviewed from [facility] September 2023 thriving Given ongoing weight loss this may be a recurrent problem until her weight stabilizes She is working with technician automatic and rechecking labs every 4 weeks or [...] minimum of 6 months The most recent [employer]ocrinologists and [employer] guidelines recommend patients who [...] software and direct typing Please excuse inadvertent engine repairer service or typing errors, or uncorrected word substitutions Although every attempt has been made by the provider to proofread this document, occasional misspellings and typographical errors may still be present Due to the previous pandemic, and the use of personal protective equipment (PPE) This may decrease voice recognition accuracy Inadvertent engine repairer service errors may occur 03/17/2024 PAF (paroxysmal atrial [...] minimum of 6 months The most recent [employer] endocrinologists and [employer] guidelines recommend patients who [...] software and direct typing Please excuse inadvertent engine repairer service or typing errors, or uncorrected word substitutions Although every attempt has been made by the provider to proofread this document, occasional misspellings and typographical errors may still be present Due to the previous pandemic, and the use of personal protective equipment (PPE) This may decrease voice recognition accuracy Inadvertent engine repairer service errors may occur 10/01/2024 PAF (paroxysmal atrial fibrillation) (ICD-10 - I48.0) #Weight Management 10/01/2024 Stable on 15 mg of Zepbound Goal is to have BMI under 45 so she can get a left total knee replacement, recently got steroid injections with [facility] She is euthyroid chemically Scheduled for updated sleep study 10/18/2024 She is also working with orthopedic surgery, she is getting injections in her knee ENT for hearing loss Total time spent today was 30 minutes [...] software and direct typing Please excuse inadvertent engine repairer service or typing errors, or uncorrected word substitutions Although every attempt has been made by the provider to proofread this document, occasional misspellings and typographical errors may still be present Due to the previous pandemic, and the use of personal protective equipment (PPE) This may decrease voice recognition accuracy Inadvertent engine repairer service errors may occur 05/05/2024 PAF (paroxysmal atrial [...] software and direct typing Please excuse inadvertent engine repairer service or typing errors, or uncorrected word substitutions Although every attempt has been made by the provider to proofread this document, occasional misspellings and typographical errors may still be present Due to the previous pandemic, and the use of personal protective equipment (PPE) This may decrease voice recognition accuracy Inadvertent engine repairer service errors may occur 06/22/2024 NICHOLE (obstructive sleep [...] software and direct typing Please excuse inadvertent engine repairer service or typing errors, or uncorrected word substitutions Although every attempt has been made by the provider to proofread this document, occasional misspellings and typographical errors may still be present Due to the previous pandemic, and the use of personal protective equipment (PPE) This may decrease voice recognition accuracy Inadvertent engine repairer service errors may occur 08/20/2024 PAF (paroxysmal atrial fibrillation) (ICD-10 - I48.0) Acute Concerns/Problem List: 08/20/2024 Labs reviewed and stable Stable on 15 mg of Zepbound Goal is to have BMI under 45 so she can get a left total knee replacement, recently got steroid injections with [facility] Sleep study later in the summer She is euthyroid chemically Scheduled for updated sleep study She is also working with orthopedic surgery, [...] software and direct typing Please excuse inadvertent engine repairer service or typing errors, or uncorrected word substitutions Although every attempt has been made by the provider to proofread this document, occasional misspellings and typographical errors may still be present Due to the previous pandemic, and the use of personal protective equipment (PPE) This may decrease voice recognition accuracy Inadvertent engine repairer service errors may occur 08/20/2024 NICHOLE (obstructive sleep apnea) (ICD-10 - G47.33) Acute Concerns/Problem List: 08/20/2024 Labs reviewed and stable Stable on 15 mg of Zepbound Goal is to have BMI under 45 so she can get a left total knee replacement, recently got steroid injections with [facility] Sleep study later in the summer She is euthyroid chemically Scheduled for updated sleep study She is also working with orthopedic surgery, [...] software and direct typing Please excuse inadvertent engine repairer service or typing errors, or uncorrected word substitutions Although every attempt has been made by the provider to proofread this document, occasional misspellings and typographical errors may still be present Due to the previous pandemic, and the use of personal protective equipment (PPE) This may decrease voice recognition accuracy Inadvertent engine repairer service errors may occur 06/22/2024 Sensorineural hearing loss [...] software and direct typing Please excuse inadvertent engine repairer service or typing errors, or uncorrected word substitutions Although every attempt has been made by the provider to proofread this document, occasional misspellings and typographical errors may still be present Due to the previous pandemic, and the use of personal protective equipment (PPE) This may decrease voice recognition accuracy Inadvertent engine repairer service errors may occur 10/01/2024 NICHOLE (obstructive sleep apnea) (ICD-10 - G47.33) #Weight Management 10/01/2024 Stable on 15 mg of Zepbound Goal is to have BMI under 45 so she can get a left total knee replacement, recently got steroid injections with [facility] She is euthyroid chemically Scheduled for updated sleep study 10/18/2024 She is also working with orthopedic surgery, she is getting injections in her knee ENT for hearing loss Total time spent today was 30 minutes [...] software and direct typing Please excuse inadvertent engine repairer service or typing errors, or uncorrected word substitutions Although every attempt has been made by the provider to proofread this document, occasional misspellings and typographical errors may still be present Due to the previous pandemic, and the use of personal protective equipment (PPE) This may decrease voice recognition accuracy Inadvertent engine repairer service errors may occur 05/05/2024 NICHOLE (obstructive sleep [...] software and direct typing Please excuse inadvertent engine repairer service or typing errors, or uncorrected word substitutions Although every attempt has been made by the provider to proofread this document, occasional misspellings and typographical errors may still be present Due to the previous pandemic, and the use of personal protective equipment (PPE) This may decrease voice recognition accuracy Inadvertent engine repairer service errors may occur 03/17/2024 NICHOLE (obstructive sleep [...] minimum of 6 months The most recent [employer] endocrinologists and [employer] guidelines recommend patients who [...] software and direct typing Please excuse inadvertent engine repairer service or typing errors, or uncorrected word substitutions Although every attempt has been made by the provider to proofread this document, occasional misspellings and typographical errors may still be present Due to the previous pandemic, and the use of personal protective equipment (PPE) This may decrease voice recognition accuracy Inadvertent engine repairer service errors may occur 12/18/2023 NICHOLE (obstructive sleep apnea) (ICD-10 - G47.33) #Weight Management 12/18/2023 Labs reviewed from [facility] September 2023 thriving Given ongoing weight loss this may be a recurrent problem until her weight stabilizes She is working with technician automatic and rechecking labs every 4 weeks or [...] minimum of 6 months The most recent [employer] endocrinologists and [employer] guidelines recommend patients who [...] software and direct typing Please excuse inadvertent engine repairer service or typing errors, or uncorrected word substitutions Although every attempt has been made by the provider to proofread this document, occasional misspellings and typographical errors may still be present Due to the previous pandemic, and the use of personal protective equipment (PPE) This may decrease voice recognition accuracy Inadvertent engine repairer service errors may occur 08/20/2024 Sensorineural hearing loss (SNHL) of both ears (ICD-10 - H90.3) Acute Concerns/Problem List: 08/20/2024 Labs reviewed and stable Stable on 15 mg of Zepbound Goal is to have BMI under 45 so she can get a left total knee replacement, recently got steroid injections with [facility] Sleep study later in the summer She is euthyroid chemically Scheduled for updated sleep study She is also working with orthopedic surgery, [...] software and direct typing Please excuse inadvertent engine repairer service or typing errors, or uncorrected word substitutions Although every attempt has been made by the provider to proofread this document, occasional misspellings and typographical errors may still be present Due to the previous pandemic, and the use of personal protective equipment (PPE) This may decrease voice recognition accuracy Inadvertent engine repairer service errors may occur 10/01/2024 Sensorineural hearing loss (SNHL) of both ears (ICD-10 - H90.3) #Weight Management 10/01/2024 Stable on 15 mg of Zepbound Goal is to have BMI under 45 so she can get a left total knee replacement, recently got steroid injections with [facility] She is euthyroid chemically Scheduled for updated sleep study 10/18/2024 She is also working with orthopedic surgery, she is getting injections in her knee ENT for hearing loss Total time spent today was 30 minutes [...] software and direct typing Please excuse inadvertent engine repairer service or typing errors, or uncorrected word substitutions Although every attempt has been made by the provider to proofread this document, occasional misspellings and typographical errors may still be present Due to the previous pandemic, and the use of personal protective equipment (PPE) This may decrease voice recognition accuracy Inadvertent engine repairer service errors may occur 10/01/2024 Encounter for examination of blood pressure without abnormal findings (ICD-10 - Z01.30) #Weight Management 10/01/2024 Stable on 15 mg of Zepbound Goal is to have BMI under 45 so she can get a left total knee replacement, recently got steroid injections with [facility] She is euthyroid chemically Scheduled for updated sleep study 10/18/2024 She is also working with orthopedic surgery, she is getting injections in her knee ENT for hearing loss Total time spent today was 30 minutes [...] software and direct typing Please excuse inadvertent engine repairer service or typing errors, or uncorrected word substitutions Although every attempt has been made by the provider to proofread this document, occasional misspellings and typographical errors may still be present Due to the previous pandemic, and the use of personal protective equipment (PPE) This may decrease voice recognition accuracy Inadvertent engine repairer service errors may occur 08/20/2024 Encounter for examination of blood pressure without abnormal findings (ICD-10 - Z01.30) Acute Concerns/Problem List: 08/20/2024 Labs reviewed and stable Stable on 15 mg of Zepbound Goal is to have BMI under 45 so she can get a left total knee replacement, recently got steroid injections with [facility] Sleep study later in the summer She is euthyroid chemically Scheduled for updated sleep study She is also working with orthopedic surgery, [...] software and direct typing Please excuse inadvertent engine repairer service or typing errors, or uncorrected word substitutions Although every attempt has been made by the provider to proofread this document, occasional misspellings and typographical errors may still be present Due to the previous pandemic, and the use of personal protective equipment (PPE) This may decrease voice recognition accuracy Inadvertent engine repairer service errors may occur Plan Of Treatment Pending Test Test Name Order Date Bone Density 05/05/2024 Next Appt Details Provider Name:MADDIE REYES, 11/19/2024 10:00:00 AM, [address] [facility], [facility] [address], [place], [address], Insurance Providers Payer Name Payer Address Payer Phone Subscriber Number Group Number Insured Name Patient Relationship to Insured Coverage Start Date Coverage End Date [facility] [address] [place] [address] [phone] [id number] Corazon Cortez Self - patient is the insured Medical (General) History Medical History History ICD Code diabetes mellitus graves disease afib gastroesophageal reflux disease (GERD) hyperlipidemia asthma sleep apnea Surgical History Surgery Date(Month/Year) cholecystectomy umbilical hernia repair arthroscopic knee surgery left partial hysterectomy Hospitalization History Reason Date(Month/Year) cardioversion x 3 episodes (01/2022, 2020, 09/2019)
--- OUTSIDE RECORDS SUMMARY | 2024-10-26 06:34 | XMS_ITS | Clinical Summary ---
Author Organization [facility] Address [address] [place] [phone] Phone Care Team Providers Care Flagger Name Role Phone Blaire Estrada TRIM MACHINE OPERATOR Primary Care Provider [phone] Surgical History Surgery Date Site/Laterality Comments CHOLECYSTECTOMY 1993 PROCEDURE: HISTORICAL CHOLECYSTECTOMY OTHER SURGICAL HISTORY 2001 PROCEDURE: MS LAPAROSCOPY SALPINGOSTOMY; COMMENT: left TONSILLECTOMY 1995 PROCEDURE: [...] Years (1 of 2 - PCV) 06/02/1987 Cervical Cancer Screening: Pap Smear 1989 DTaP,Tdap,and Td Vaccines (2 - Td or Tdap) 08/17/2014 08/17/2004 Zoster Vaccines (1 of 2) 2018 Depression Screening 02/25/2024 Cholesterol Screening (Lipid Panel) 05/05/2024 Colorectal Cancer Screening: Colonoscopy 05/05/2024 HIV Screening 05/05/2024 Hepatitis C Screening 05/05/2024 Social Influencers of Health Screening 05/05/2024 Diabetes: Blood Sugar Control Test (HGBA1C) 05/20/2024 Diabetes: Annual Urine Albumin-Creatinine Ratio (uACR) 10/20/2024 10/21/2023 Diabetes: Annual GFR (Glomerular Filtration Rate) 10/20/2024 10/21/2023, 07/16/2023 COVID-19 Vaccine ( season) 2024 01/04/2022, 03/13/2021, 05/19/2020, Additional history exists Influenza Vaccine (#1) 2024 , 01/04/2023, 01/04/2022, Additional history exists Osteoporosis Screening (Bone Density Screening) 05/20/2034 05/20/2024 HIB Vaccines Aged Out No longer eligi [...] screening for osteoporosis from Last 3 Months or Most Recently Relevant to Health Maintenance Results * BD Bone Density DXA Axial Skeleton (05/20/2024 8:29 AM EDT) Anatomical Region Laterality Modality Wrist, Hip, L-spine Bone Densito metry 05/20/2024 8:31 AM EDT Impressions 05/20/2024 8:32 AM EDT 1. There is no evidence of osteoporosis or osteopenia. 2. FRAX analysis yields a 10-year probability of major osteoporotic fracture of 8.3% and a 10-year probability of hip fracture of 0.0%. Code 40788 -------- FINAL REPORT -------- Dictated By: Rah Chamberlain Dictated Date: 05/20/2024 08:31 ET Assigned Physician: Rah Chamberlain Reviewed and Electronically Signed By: Rah Chamberlain Signed Date: 05/20/2024 08:32 ET Workstation ID: [id number] Transcribed By: Self Edit Transcribed Date: 05/20/2024 08:31 ET Narrative 05/20/2024 8:32 AM EDT HISTORY: The patient is a 53-year-old postmenopausal female with clinical concern for metabolic bone disease. FINDINGS: Dual energy [...] density of the femurs bilaterally is 1.258 gm/fv0ubunn is 125% of that of young normals [...] probability of hip fracture of 0.0%. Code 56897 -------- FINAL REPORT -------- Dictated By: Rah Chamberlain Dictated Date: 05/20/2024 08:31 ET Assigned Physician: Rah Chamberlain Reviewed and Electronically Signed By: Rah Chamberlain Signed Date: 05/20/2024 08:32 ET Workstation ID: [id number] Transcribed By: Self Edit Transcribed Date: 05/20/2024 08:31 ET Blaire Estrada NP IMG DXA PROCEDURES Final Resu lt from Last 3 Months or Most Recently Relevant to Health Maintenance Insurance [facility] Care Teams Flagger Relationship Specialty Start Date End Date Blaire Estrada NP [address] [address] PCP - General Nurse Practitioner 05/20/24
--- OUTSIDE RECORDS SUMMARY | 2024-10-26 06:34 | XMS_ITS | Patient Health Record ---
Author Organization [facility] Address [address] [facility] [place] [address] Care Team Providers Care Relay Worker Name Role Phone Sean MCKEE, Blaire Primary Care Provider Lily Corral Unavailable [phone] Allergies Allergen (clinical drug ingredient) Drug/Non Drug Allergy documented on EMR Reaction Allergy Type Onset Date Status ibuprofen Advil on blood thinners Drug Allergy Active Aleve on blood thinners Drug Allergy Active Motrin on blood thinners Drug Allergy Active Results Component Value Reference Range Notes HEMOGLOBIN A1C (GLYCOHEMOGLO BIN) Reviewed date:01/27/2024 09:20:34 AM Interpretation: Performing Lab: Notes/Report: TOTAL HEMOGLOBIN (HGBA1C) 5.8 HEMOGLOBIN A1C (GLYCOHEMOGLO BIN) Reviewed date:05/20/2024 03:29:09 PM Interpretation: Performing Lab: Notes/Report: HEMOGLOBIN A1C % (HH) 5.4 HEMOGLOBIN A1C (GLYCOHEMOGLO BIN) Reviewed date:10/22/2024 01:22:25 PM Interpretation: Performing Lab: Notes/Report: HEMOGLOBIN A1C % (HH) 5.5 Reason For Referral No Information Medications Medication SIG (Take, Route, Frequency, Duration) Notes Start Date End Date Status Mounjaro 15 MG/0.5ML as directed Subcutaneous Active Magnesium Active Ammonium Lactate 12 % 1 application to affected area Externally to feet Twice a day; Duration: 30 days Not-Taking Vitamin B Complex - as directed Orally Active Januvia 100 MG 1 tablet Orally Once a day; Duration: 30 day(s) Not-Taking Contrave 8-90 MG 1 tablet in the morning Orally Once a day Active glipiZIDE 5 MG 1 tablet 30 [...] (M20.41,M20.42), Preulcerative Skin Lesion(s) (L85.1 09/20/2020 Not-Taking Ciclopirox Olamine 0.77 % 1 application to affected area Externally to feet Twice a day; Duration: 30 days Not-Taking Furosemide 20 MG 1 tablet Orally Once a day; Duration: 30 day(s) Active Vitamin C Active metFORMIN HCl 500 MG as directed Orally Once a day Active Ketoconazole 2 % 1 application Apply a thin layer to externally to feet, even between toes Twice a day; Duration: 30 days Active Compression Stockings 20-30mm Hg 1 pair [...] on feet; Duration: 30 days 05/10/2022 Active Night Splint AFO - L1930 1 wear at rest; Duration: 30 days Active Vitamin D 25 MCG (1000 UT) 1 tablet Orally Once a day; Duration: 30 day(s) Active Immunizations Vaccine Route Administration Date Status Comme nts Influenza Unknown 11/25/2019 Administered Influenza Unknown 11/23/2020 Administered Influenza Unknown 12/25/2021 Administered Influenza Unknown 12/25/2022 Administered Influenza Unknown 12/16/2023 Administered Influenza Unknown 07/30/2024 Refused COVID-19 Pfizer BioNTech Vaccine Unknown 03/13/2021 Administered First Dose: 04/28/2020 Second Dose: 05/19/2020 Social History Tobacco Use: Social History Observation [...] Problem Acquired hammer toe of right foot (2959940047639523 ) Other hammer toe(s) (acquired), right foot (M20.41) Active confirmed Problem Acquired hammer toe of left foot (7142195458235321 ) Other hammer toe(s) (acquired), left foot (M20.42) Active confirmed Problem Acquired hammer toe of left foot (1232243217612605 ) Hammer toe of left foot (M20.42) Active confirmed Problem Polyneuropathy due to type 2 diabetes mellitus (963814054) Type 2 diabetes mellitus with polyneuropathy (E11.42) Active confirmed Problem Plantar fascial fibromatosis (17964156) Plantar fasciitis, bilateral (M72.2) Active confirmed Vital Signs Blood pressure diastolic 65 mm Hg 10/22/2024 Height 5ft 6in in 10/22/2024 Blood pressure systolic 120 mm Hg 10/22/2024 Weight 292 lbs 10/22/2024 BMI 47.12 kg/m2 10/22/2024 Encounters Encounter Location Date Provider Diagnosis [address] [id number] 11/14/2023 Lily Toledo Type 2 diabetes mellitus with polyneuropathy E11.42 and Tinea pedis B35.[address] [address] 01/27/2024 Lily Toledo Type 2 diabetes mellitus with polyneuropathy E11.[address] [address] 05/20/2024 Lily Toledo Type 2 diabetes mellitus [...] M60.872 and Bursitis of left foot M77.[address] [address] 07/30/2024 Lily Toledo Type 2 diabetes mellitus with polyneuropathy E11.42 ; Plantar fasciitis, bilateral M72.2 ; Pain in right foot M79.671 ; Calcaneal spur, right foot M77.31 ; Other myositis of right foot M60.871 ; Bursitis of right foot M77.51 ; Pain in left foot M79.672 ; Calcaneal spur, left foot M77.32 ; Other myositis of left foot M60.872 ; Bursitis of left foot M77.52 and Tinea pedis of both feet B35.[address] [address] 10/22/2024 Lily Toledo Plantar fasciitis, bilateral M72.2 ; Tinea pedis of both feet B35.3 and Type 2 diabetes mellitus with polyneuropathy E11.[address] [address] 05/21/2024 Lily Toledo [facility] [address] [address] 08/04/2024 Lily Toledo Assessments Encounter Date Diagnosis (ICD [...] Patient Educated with: RICE [email or web address].pdf (RICE THERAPY.pdf) 07/30/2024 Type 2 diabetes mellitus with polyneuropathy (ICD-10 - E11.42) 10/22/2024 Tinea pedis of both feet (ICD-10 - B35.3) 10/22/2024 Plantar fasciitis, bilateral (ICD-10 - M72.2) 07/30/2024 Plantar fasciitis, bilateral (ICD-10 - M72.2) Patient Educated with: HEEL CORD STRETCHES.pdf (HEEL CORD STRETCHES.pdf ) Patient Educated with: RICE THERAPY.pdf (RICE THERAPY.pdf) 10/22/2024 Type 2 diabetes mellitus with polyneuropathy (ICD-10 - E11.42) 05/20/2024 Pain in right foot (ICD-10 - M79.671) 11/14/2023 Tinea pedis (ICD-10 - B35.3) 05/20/2024 Calcaneal spur, right foot (ICD-10 - M77.31) 07/30/2024 Pain in right foot (ICD-10 - M79.671) 07/30/2024 Calcaneal spur, right foot (ICD-10 - M77.31) 05/20/2024 Other myositis of right foot (ICD-10 - M60.871) 05/20/2024 Bursitis of right foot (ICD-10 - M77.51) 07/30/2024 Other myositis of right foot (ICD-10 - M60.871) 07/30/2024 Bursitis of right foot (ICD-10 - M77.51) 05/20/2024 Pain in left foot (ICD-10 - M79.672) 07/30/2024 Pain in left foot (ICD-10 - M79.672) 05/20/2024 Calcaneal spur, left foot (ICD-10 - M77.32) 07/30/2024 Calcaneal spur, left foot (ICD-10 - M77.32) 05/20/2024 Other myositis of left foot (ICD-10 - M60.872) 07/30/2024 Other myositis of left foot (ICD-10 - M60.872) 05/20/2024 Bursitis of left foot (ICD-10 - M77.52) 07/30/2024 Bursitis of left foot (ICD-10 - M77.52) 07/30/2024 Tinea pedis of both feet (ICD-10 - B35.3) Plan Of Treatment Pending Test Test Name Order Date X ray : Foot, left 3V 05/20/2024 X ray : Foot, right 3V 05/20/2024 Next Appt Details Provider Name:Lily freeman, 12/28/2024 03:00:00 PM, [address] [facility], [place], [address], Insurance Providers Payer Name Payer Address Payer Phone Subscriber Number Group Number Insured Name Patient Relationship to Insured Coverage Start Date Coverage End Date [facility] [id number] [place] [address] [phone] [id number] Corazon Cortez Self - patient is the [...]
[2024-10-26 11:09] LABS: Hemoglobin A1C 125.5870 umol/L; Total Hemoglobin (HGBA1C) 3467.5704 umol/L
[2024-10-26 12:02] LABS: Free T4 (Free Thyroxine) 0.93 ng/dL (0.71-1.85); Thyroid Stimulating Hormone 4.13 uIU/mL (0.32-4.0)
[2024-10-26 13:15] LABS: Alanine Aminotransferase 8 U/L (0-31); Anion Gap 15 (12-20); Aspartate Amino Transferase 22 U/L (5-31); Blood Urea Nitrogen 12 mg/dL (9-16); Calcium 9.4 mg/dL (8.4-10.2); Carbon Dioxide 26 mmol/L (22-29); Chloride 106 mmol/L (96-108); Estimated Glomerular Filt Rate > 60; Potassium 4.5 mmol/L (3.3-5.1); Sodium 142 mmol/L (135-145)
== END 2024-10-26 06:28 | disposition home or self-care (01) ==
LOC: HO.HMGCLDS 06:27
PROVIDERS: PCP Nurse Practitioner Acute Care; Visit Provider Physician Assistant
DX: E11.42 Type 2 diabetes mellitus with diabetic polyneuropathy (principal)
CPT/HCPCS: 36415; 80048; 83036; 84439; 84443; 84450; 84460; 84481

== ENCOUNTER 2024-11-09 09:53 | Outpatient (AMB) | payer BC, SELFPAY ==
--- OUTSIDE RECORDS SUMMARY | 2024-04-09 05:30 | XMS_ITS ---
Author Organization [facility] Address [address] [place] [address] Care Team Providers Care Patrol Police Lieutenant Name Role Phone Sean MCKEE, Blaire Primary Care Provider Lily Corral [phone] Ma Encounters Encounter Location Date Provider Diagnosis [address] [address] 04/09/2024 Lily Toledo Plan Of Treatment Next Appt Details Provider Name:Lily freeman, 12/28/2024 03:00:00 PM, [address] [place], [address], Progress Notes * Ran BRISENOVladOB: [birth year] (54 yo F)Acc No.[id number]:04/09/2024 Progress Note Patient: Corazon CORDOVA Provider: Ramón Toledo DPM :1970 A ge:53 Y S ex:Female Date:04/09/2024 Address:[address] [place] Pcp:Blaire Estrada NP Subjective: * Chief Complaints: [...] 04/09/2024 Generated for Jeri Dowd/Ralph on: 0 11/09/2024 12:46 PM EDT
--- OUTSIDE RECORDS SUMMARY | 2024-04-16 08:45 | XMS_ITS ---
Author Organization [facility] Address [address] [facility] [place] [address] Care Team Providers Care Production Line Name Role Phone Sean MCKEE, Blaire Primary Care Provider Lily Corral Unavailable [phone] Allergies Allergen (clinical drug ingredient) Drug/Non Drug [...] Active Encounters Encounter Location Date Provider Diagnosis [facility] [address] [address] 04/16/2024 Lily Toledo Plan Of Treatment Next Appt Details Provider Name:Lily freeman, 12/28/2024 03:00:00 PM, [address] [place] [address], [phone], Progress Notes * Lexi CORTEZOB: [birth year] (54 yo F)Acc No.[id number]:04/16/2024 Progress Note Patient: Corazon CORDOVA Provider: Ramón Toledo DPM :1970 A ge:53 Y S ex:Female Date:04/16/2024 Address:[address] [place], [place] [phone] Pcp:Blaire Estrada NP Subjective: * Chief Complaints: [...] 04/16/2024 Generated for Jeri hauser/Flores/Ralph on: 0 11/09/2024 12:46 PM EDT
--- NOTE | 2024-11-09 10:10 | MHC.OFFVIS ---
Vital Signs 11/09/24 10:12 Height 5 ft 8 in Weight 294 lb BMI 44.7 BP 118/74 Blood Pressure Location Rt brachial Position Sitting Intake Visit Reasons: vulvar Biopsies Intake Note: here for vulvar Biopsies Information Interpreted: non-clinical & clinical Black Off Worker: Black Off Worker Present (Odette) Accompanied by: Self / Same As Patient Allergies naproxen (From Aleve) Adverse Reaction (Verified 11/09/24 10:14) bleeding Medication List - Last Reconciled 11/09/24 by Ellen Villar LPN acetaminophen 1,000 mg PO BEDTIME acetaminophen 650 mg PO DAILY apixaban 5 mg PO BID ascorbic acid (vitamin C) (Vitamin C) 500 mg PO DAILY ascorbic acid (vitamin C) mg PO atorvastatin 10 mg PO DAILY betamethasone dipropionate 0.05% 1 appl topical DAILY cholecalciferol (vitamin D3) (Vitamin D3) 25 mcg PO DAILY diltiazem HCl CD 240 mg PO BEDTIME 90 days flecainide 150 mg (1.5 x 100 mg) PO BID 90 days furosemide 20 mg PO DAILY 90 days magnesium oxide 400 mg PO BID mecobalamin (vitamin B12) 1,000 mcg PO DAILY metformin 500mg AM, 1000mg PM metformin 500 mg PO DAILY methimazole 5 mg PO Q2D naltrexone-bupropion 8-90 mg (Contrave) 2 tabs PO BID omeprazole 20 mg PO DAILY ondansetron HCl 4 mg PO Q8H PNV 119-iron fum-folic acid 29 mg iron- 1 mg tabs PO tirzepatide (Mounjaro) 10 mg subcut QWEEK Is last menstrual period known: Yes Do you need a note to return to daycare/school/sports/work: No HPI Comments Details: Patient is here today for vulvar biopsy due to history of chronic vulvar itching. She reports the corticosteroid cream is somewhat helpful she uses it p.r.n.. [facility] Medical History Thickened endometrium Postmenopausal bleeding History of cardioversion Morbid obesity Graves disease Diabetes PAF (paroxysmal atrial fibrillation) Surgical History Hx of cholecystectomy H/O knee surgery History of hernia repair S/P removal of left ovary Family History Father CVD (cardiovascular disease) Heart attack Mother Lung cancer Social History Household Members: Spouse Housing: Apartment Alcohol intake: former Comment: d/c from [employer] Patient Tobacco Use Status: Never used Tobacco Current occupational status: employed 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, 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 Sexual orientation: Straight/Heterosexual Gender identity: Female Female Reproductive History Menstrual Age of Menarche: 7 Review of Systems Const All systems reviewed & are unremarkable except as noted in HPI and below Reports as per HPI Eyes Reports no additional complaints ENT Reports no additional complaints Card Reports no additional complaints Resp Reports no additional complaints GI Reports as per HPI and Reports no additional complaints Reports as per HPI Musc Reports no additional complaints Skin/Breast Reports as per HPI Neuro Reports no additional complaints Psych Reports no additional complaints Endo Reports no additional complaints Chandana/Lymph Reports no additional complaints Aller/Immun Reports no additional complaints Physical Exam Vital Signs: Last Vital Signs BP 118/74 11/09/24 10:12 BMI result Body Mass Index 44.7 Const General: cooperative, healthy appearing, no acute distress, well developed and alert Orientation/consciousness: patient oriented x3 HEENT Head: Yes normal to inspection Eyes General: appearance normal, both eyes and all related structures Neck Neck: Yes normal visual inspection Thyroid: Thyroid normal Chest Chest palpation & inspection: normal inspection of the chest and other (no puckering, dimpling, peau de orange, retraction, discharge, masses) Breast/axilla inspection: normal inspection of the breasts Breast/axilla palpation: normal palpation of the breasts Resp Effort & Inspection: normal respiratory effort GI Inspection: Yes normal to inspection Palpation (GI): Soft to palpation Rectal Exam - Female: deferred Other: External inspection only, hypopigmentation throughout the vulva from clitoris bilateral labia majora minora, perineum, scattered excoriations, lichenification evident General: Yes bladder normal to palpation External Female Exam: normal external appearance and normal appearance of the urethra Speculum Exam - Vagina: normal appearance of the vagina, normal palpation and normal vaginal discharge Speculum Exam - Cervix: normal appearance of the cervix and normal palpation Bimanual exam- vagina & uterus: normal bimanual exam, normal palpation, uterine size normal, bladder normal to palpation, normal palpation and non-tender Bimanual Exam- Adnexa, other: no masses Female genitals images:  1. biopsy right upper labia minora 2. biopsy left upper labia minora Skin General skin exam: no rashes or lesions noted Rashes: no rashes Neuro General: patient oriented x3 Cognition (Neuro): normal cognition Extrem General: Yes normal to inspection Psych Appearance: well kempt Attitude: cooperative Thought process: Normal thought process present Office Procedures Skin Biopsy Details: Vulvar Biopsy Procedure: Preop Diagnosis: Vulvar biopsy-. The patient is here today for an Vulvar Skin Biopsy to rule out any pathology. She was counseled regarding anticipatory guidance for the procedure including the risks for pain, infection, bleeding, potential injury to the adjacent tissues, may include chronic pain, hyper or hypo pigmentation, scarring, complications with wound healing requiring further assessment and treatment. She was consented for the procedure, and the consent forms were signed. She is agreeable to have the procedure today. All questions were answered. The patient was placed in the dosal lithotomy position. Using aseptic technique for the procedure the biopsy area was cleansed and prepped with Betadine solution. The skin area was anesthetized with Lidocaine 1% using a 3cc syringe and a 25g needle, 0.5cc was injected perpendicular into the dermis at the biopsy sites until elevation was noted. A shave biopsy was utilized. The bleeding site was minimal and controlled by direct pressure for several seconds. Antibiotic ointment was applied to the biopsy site. The patient tolerated the procedure well and left the department is good condition. Post Skin Biopsy Instructions: You may take an over the counter mild analgesia like Tylenol or Advil (if no allergies), per the manufacturers recommendations on dosing and frequency. Follow the directions completely. Skin care ointment and dressings reviewed. Avoid tight clothing and intimacy. Clean with a mild soap, rinse well, do not scrub the area. Itching is a normal response to healing, avoid scratching. Call the office if any: fever (over 100.4), flu like symptoms, sudden pain, swelling, foul odor, or redness, pus discharge, or any signs of infection. All of her questions and concerns were addressed to the best of my ability and shared decision making. She is agreeable to the plan of care. Return to the office in 1-2 weeks for pathology results and skin check. Call sooner if there are any concerns and not wait till the follow-up appointment. Skin biopsy performed by: Stephanie Shafer Informed consent given: Yes Consent signed: Yes Type of Biopsy: shave Anesthesia: local Hemostasis: pressure Wound closure: secondary intention Patient tolerated procedure: well Complications: No Assessment & Plan Assessment & Plan (1) Pruritus of vulva: Code(s): L29.2 - Pruritus vulvae Plan Vulvar biopsy completed today. See procedure notes. This note is constructed using voice recognition software. While every effort has been made to ensure accuracy, frame table operator helper errors may have been included. Orders: Orders Biopsy/Excision - Vulva Today N89.8 - Other specified noninflammatory disorders of vagina Coding Level of Care Code Procedure Only Diagnoses Pruritus of vulva L29.2
[2024-11-09 10:12] VITALS: BP 118/74; BMI 44.7
--- OUTSIDE RECORDS SUMMARY | 2024-11-09 12:46 | XMS_ITS | Patient Health Record ---
Author Organization [facility] [address] Address [address] [place] [address] Care Team Providers Care Guest Services Lead Name Role Phone MADDIE REYES Unavailable [phone] Allergies Allergen (clinical drug ingredient) Drug/Non Drug Allergy documented on EMR Reaction Allergy Type Onset Date Status ibuprofen Ibuprofen Blood thinner Drug Allergy Act indigo Results Component Value Reference Range Notes BD BONE DENSITY DXA AXIAL SK ELETON Reviewed date:05/20/2024 08:56:43 AM Interpretation: Performing Lab: Notes/Report: Note See Note [facility], a member of [facility] Patient Name: CORAZON CORTEZ Date of : 1970 Reason for Exam: SCREENING Exam Date: 05/20/2024 [id number] EST Report Status: Final Ordering Provider: MADDIE [...] probability of hip fracture of 0.0%. Code 45034 -------- FINAL REPOR T -------- Dictated By: Rah Chamberlain Dictated Date: 05/20 08:31 ET Assigned Physician: Rah Chamberlain Reviewed and Electro nically Signed By: Rah Chamberlain Signed Date: 025 08:32 ET Workstation ID: [id number] Transcribed By: Self Edit Transcribed Date: 05/20/2024 08:31 ET Reason For Referral Reason Home Sleep Study ([facility]) Diagnosis 1 Obstructive apnea (G 47.33) Referral Organization [facility] [address] Referring Provider First Name MADDIE Referring Provider Last Name PHOEBEHOT Referring Provider Speciality Internal M edicine Referred Provider Specialty Pulmonology General Notes Alba Vail 01/2025 09:38:15 AM > Pt given phone [phone] to call and make an appt and referral form faxed to [phone] Clinical Notes Ursula Sanon 06/28 12:26:35 PM >can you resend referral to [facility] needs a insurance referral, Gomez Aquino 07/05/2024 09:43:16 AM > refaxed to [facility] Referral Priority Routine Reason [facility] Diagnosis 1 Sensorineural hearin g loss (SNHL) of both ears (H90.3) Referral Organization [facility] [address] Referring Provider First Name MADDIE Referring Provider Last Name BORHOT Referring Provider Speciality Internal M edicine Referred Provider Specialty Ear, nose an d throat surgeon General Notes Alba Vail 09/2024 10:30:29 AM > Pt given phone referral faxed to Clinical Notes Tanner Ospina 03/2024 03:56:02 PM > Scheduled for 10/28 at 10 am. Pt aware Referral Priority Routine Medications Medication SIG (Take, [...] day Active Vitamin D (Cholecalciferol) 50 MCG (1999 [...] Status Risk Notes Problem Screening for osteoporosis (413994508) Encounter for screening for osteoporosis (Z13.820) Active confirmed Problem Morbid obesity (299005420) Morbid obesity (E66.01) Active confirmed Problem Obstructive sleep apnea syndrome (66236205) NICHOLE (obstructive sleep apnea) (G47.33) Active confirmed Problem Use of anticoagulation (857229809) Chronic anticoagulation (Z79.01) Active confirmed Problem Type II diabetes mellitus without complication (093962499) Type 2 diabetes mellitus without complication, without long-term current use of insulin (E11.9) Active confirmed Problem Body mass index 40+ - severely obese (510697549) BMI 50.0-59.9, adult (Z68.43) Active confirmed Problem Graves disease (323694969) Graves disease (E05.00) Active confirmed Problem Atrial fibrillation (03308963) PAF (paroxysmal atrial fibrillation) (I48.0) Active confirmed Problem Body mass index 40+ - severely obese (428468775) BMI 45.0-49.9, adult (Z68.42) Active confirmed Problem Sensorineural hearing loss, bilateral (201119720) Sensorineural hearing loss (SNHL) of both ears (H90.3) Active confirmed Problem Obstructive sleep apnea syndrome (36341770) Obstructive apnea (G47.33) Active confirmed Vital Signs Heart Rate 77 /min 10/01/2024 Blood pressure diastolic 70 mm Hg 10/01/2024 Oximetry 96 % 10/01/2024 Height 66 in 10/01/2024 Blood pressure systolic 120 mm Hg 10/01/2024 Weight 294.3 lbs 10/01/2024 BMI 47.5 kg/m2 10/01/2024 Encounters Encounter Location Date Provider Diagnosis [facility] [address] [address] 12/18/2023 MADDIE REYES Morbid obesity E66.0 1 ; BMI 45.0-49.9, adult Z68.42 ; Dietary counseling and surveillance Z71.3 ; Type 2 diabetes mellitus without complication, without long-term current use of insulin E11.9 ; Graves disease E05.00 ; Chronic anticoagulation Z79.01 ; PAF (paroxysmal atrial fibrillation) I48.0 and NICHOLE (obstructive sleep apnea) G47.33 [facility] [address] [address] 03/17/2024 MADDIE REYES Morbid obesity E66.0 1 ; BMI 45.0-49.9, adult Z68.42 ; Dietary counseling and surveillance Z71.3 ; Type 2 diabetes mellitus without complication, without long-term current use of insulin E11.9 ; Graves disease E05.00 ; Chronic anticoagulation Z79.01 ; PAF (paroxysmal atrial fibrillation) I48.0 and NICHOLE (obstructive sleep apnea) G47.33 [facility] [address] [address] 05/05/2024 MADDIE REYES Morbid obesity E66.0 1 ; BMI 45.0-49.9, adult Z68.42 ; Dietary counseling and surveillance Z71.3 ; Type 2 diabetes mellitus without complication, without long-term current use of insulin E11.9 ; Graves disease E05.00 ; Chronic anticoagulation Z79.01 ; PAF (paroxysmal atrial fibrillation) I48.0 and NICHOLE (obstructive sleep apnea) G47.33 [facility] [address] [address] 06/22/2024 MADDIE REYES Morbid obesity E66.0 1 ; BMI 45.0-49.9, adult Z68.42 ; Dietary counseling and surveillance Z71.3 ; Type 2 diabetes mellitus without complication, without long-term current use of insulin E11.9 ; Graves disease E05.00 ; Chronic anticoagulation Z79.01 ; PAF (paroxysmal atrial fibrillation) I48.0 ; NICHOLE (obstructive sleep apnea) G47.33 and Sensorineural hearing loss (SNHL) of both ears H90.3 [facility] [address] [address] 08/20/2024 MADDIE REYES Morbid obesity E66.0 1 ; Annual physical [...] of blood pressure without abnormal findings Z01.30 [facility] [address] [address] 10/01/2024 MADDIE REYES Morbid obesity E66.0 1 ; [...] Z01.30 [facility] [address] [address] 11/12/2023 MADDIE REYES Morbid obesity E66.0 1 [facility] [address] [address] 04/19/2024 MADDIE FINNT [facility] [address] [address] 05/05/2024 MADDIE REYES Encounter for screen ing for osteoporosis Z13.[address] [facility] [address] [place] [address] 05/20/2024 MADDIE BORHOT [facility] [address] 06/28/2024 MADDIE BRISENOT [facility] [address] [place] [address] 07/02/2024 MADDIE BORHOT [facility] [address] [place] [address] 08/20/2024 MADDIE REYES Annual physical exam Z00.00 [facility] [address] [address] 06/26/2024 MADDIE PHOEBEHOT [facility] [address] 07/02/2024 MADDIE BORHOT [facility] [address] 07/03/2024 MADDIE BORHOT [facility] [address] [address] 07/05/2024 MADDIE BORHOT [facility] [address] 07/06/2024 MADDIE PHOEBEHOT [facility] [address] [address] 08/21/2024 MADDIE SANDHUHOT [facility] [address] /07/2025 MADDIE REYES Annual physical exam Z00.00 [facility] [address] [facility] [address] [place] [address] 08/31/2024 MADDIE REYES Annual physical exam Z00.00 [facility] [address] [facility] [address] [place] [address] 10/26/2024 MADDIE REYES Assessments Encounter Date Diagnosis (ICD Code) Assessment Notes Treatment Notes Treatment Clinical Notes Section Notes 11/12/2023 Morbid obesity (ICD-10 - E66.01) 12/18/2023 Morbid obesity (ICD-10 - E66.01) #Weight Management 12/18/2023 Labs reviewed from [facility] September 2023 thriving Given ongoing weight loss this may be a recurrent problem until her weight stabilizes She is working with special librarian and rechecking labs every 4 weeks or [...] minimum of 6 months The most recent [place] [employer] of clinical endocrinologists and [place] [employer] of endocrinology guidelines recommend patients who [...] software and direct typing Please excuse inadvertent recyclable materials sorter or typing errors, or uncorrected word substitutions Although every attempt has been made by the provider to proofread this document, occasional misspellings and typographical errors may still be present Due to the previous pandemic, and the use of personal protective equipment (PPE) This may decrease voice recognition accuracy Inadvertent recyclable materials sorter errors may occur 03/17/2024 Morbid obesity (ICD-10 [...] minimum of 6 months The most recent [place] [employer] of clinical endocrinologists and [place] [employer] of endocrinology guidelines recommend patients who [...] software and direct typing Please excuse inadvertent recyclable materials sorter or typing errors, or uncorrected word substitutions Although every attempt has been made by the provider to proofread this document, occasional misspellings and typographical errors may still be present Due to the previous pandemic, and the use of personal protective equipment (PPE) This may decrease voice recognition accuracy Inadvertent recyclable materials sorter errors may occur 05/05/2024 Morbid obesity (ICD-10 [...] software and direct typing Please excuse inadvertent recyclable materials sorter or typing errors, or uncorrected word substitutions Although every attempt has been made by the provider to proofread this document, occasional misspellings and typographical errors may still be present Due to the previous pandemic, and the use of personal protective equipment (PPE) This may decrease voice recognition accuracy Inadvertent recyclable materials sorter errors may occur 05/05/2024 Encounter for screening [...] software and direct typing Please excuse inadvertent recyclable materials sorter or typing errors, or uncorrected word substitutions Although every attempt has been made by the provider to proofread this document, occasional misspellings and typographical errors may still be present Due to the previous pandemic, and the use of personal protective equipment (PPE) This may decrease voice recognition accuracy Inadvertent recyclable materials sorter errors may occur 06/22/2024 BMI 45.0-49.9, adult [...] software and direct typing Please excuse inadvertent recyclable materials sorter or typing errors, or uncorrected word substitutions Although every attempt has been made by the provider to proofread this document, occasional misspellings and typographical errors may still be present Due to the previous pandemic, and the use of personal protective equipment (PPE) This may decrease voice recognition accuracy Inadvertent recyclable materials sorter errors may occur 08/20/2024 Morbid obesity (ICD-10 - E66.01) Acute Concerns/Problem List: 08/20/2024 Labs reviewed and stable Stable on 15 mg of Zepbound Goal is to have BMI under 45 so she can get a left total knee replacement, recently got steroid injections with [facility] Sleep study later in the summer [...] software and direct typing Please excuse inadvertent recyclable materials sorter or typing errors, or uncorrected word substitutions Although every attempt has been made by the provider to proofread this document, occasional misspellings and typographical errors may still be present Due to the previous pandemic, and the use of personal protective equipment (PPE) This may decrease voice recognition accuracy Inadvertent recyclable materials sorter errors may occur 08/20/2024 Annual physical exam (ICD-10 - Z00.00) Acute Concerns/Problem List: 08/20/2024 Labs reviewed and stable Stable on 15 mg of Zepbound Goal is to have BMI under 45 so she can get a left total knee replacement, recently got steroid injections with [facility] Sleep study later in the summer She [...] software and direct typing Please excuse inadvertent recyclable materials sorter or typing errors, or uncorrected word substitutions Although every attempt has been made by the provider to proofread this document, occasional misspellings and typographical errors may still be present Due to the previous pandemic, and the use of personal protective equipment (PPE) This may decrease voice recognition accuracy Inadvertent recyclable materials sorter errors may occur 08/20/2024 Annual physical exam (ICD-10 - Z00.00) 08/30/2024 Annual physical exam (ICD-10 - Z00.00) 08/31/2024 Annual physical exam (ICD-10 - Z00.00) 10/01/2024 Morbid obesity (ICD-10 - E66.01) #Weight Management 10/01/2024 Stable on 15 mg of Zepbound Goal is to have BMI under 45 so she can get a left total knee replacement, recently got steroid injections with [facility] She is euthyroid chemically Scheduled for [...] software and direct typing Please excuse inadvertent recyclable materials sorter or typing errors, or uncorrected word substitutions Although every attempt has been made by the provider to proofread this document, occasional misspellings and typographical errors may still be present Due to the previous pandemic, and the use of personal protective equipment (PPE) This may decrease voice recognition accuracy Inadvertent recyclable materials sorter errors may occur 08/20/2024 BMI 45.0-49.9, adult (ICD-10 - Z68.42) Acute Concerns/Problem List: 08/20/2024 Labs reviewed and stable Stable on 15 mg of Zepbound Goal is to have BMI under 45 so she can get a left total knee replacement, recently got steroid injections with [facility] Sleep study later in the summer [...] software and direct typing Please excuse inadvertent recyclable materials sorter or typing errors, or uncorrected word substitutions Although every attempt has been made by the provider to proofread this document, occasional misspellings and typographical errors may still be present Due to the previous pandemic, and the use of personal protective equipment (PPE) This may decrease voice recognition accuracy Inadvertent recyclable materials sorter errors may occur 06/22/2024 Dietary counseling and [...] software and direct typing Please excuse inadvertent recyclable materials sorter or typing errors, or uncorrected word substitutions Although every attempt has been made by the provider to proofread this document, occasional misspellings and typographical errors may still be present Due to the previous pandemic, and the use of personal protective equipment (PPE) This may decrease voice recognition accuracy Inadvertent recyclable materials sorter errors may occur 05/05/2024 BMI 45.0-49.9, adult [...] software and direct typing Please excuse inadvertent recyclable materials sorter or typing errors, or uncorrected word substitutions Although every attempt has been made by the provider to proofread this document, occasional misspellings and typographical errors may still be present Due to the previous pandemic, and the use of personal protective equipment (PPE) This may decrease voice recognition accuracy Inadvertent recyclable materials sorter errors may occur 03/17/2024 BMI 45.0-49.9, adult [...] minimum of 6 months The most recent [place] [employer] of clinical endocrinologists and [place] [employer] of endocrinology guidelines recommend patients who [...] software and direct typing Please excuse inadvertent recyclable materials sorter or typing errors, or uncorrected word substitutions Although every attempt has been made by the provider to proofread this document, occasional misspellings and typographical errors may still be present Due to the previous pandemic, and the use of personal protective equipment (PPE) This may decrease voice recognition accuracy Inadvertent recyclable materials sorter errors may occur 10/01/2024 BMI 45.0-49.9, adult (ICD-10 - Z68.42) #Weight Management 10/01/2024 Stable on 15 mg of Zepbound Goal is to have BMI under 45 so she can get a left total knee replacement, recently got steroid injections with [facility] She is euthyroid chemically Scheduled for [...] software and direct typing Please excuse inadvertent recyclable materials sorter or typing errors, or uncorrected word substitutions Although every attempt has been made by the provider to proofread this document, occasional misspellings and typographical errors may still be present Due to the previous pandemic, and the use of personal protective equipment (PPE) This may decrease voice recognition accuracy Inadvertent recyclable materials sorter errors may occur 12/18/2023 BMI 45.0-49.9, adult (ICD-10 - Z68.42) #Weight Management 12/18/2023 Labs reviewed from [facility] September 2023 thriving Given ongoing weight loss this may be a recurrent problem until her weight stabilizes She is working with special librarian and rechecking labs every 4 weeks or [...] minimum of 6 months The most recent [place] [employer] of clinical endocrinologists and [place] [employer] of endocrinology guidelines recommend patients who [...] software and direct typing Please excuse inadvertent recyclable materials sorter or typing errors, or uncorrected word substitutions Although every attempt has been made by the provider to proofread this document, occasional misspellings and typographical errors may still be present Due to the previous pandemic, and the use of personal protective equipment (PPE) This may decrease voice recognition accuracy Inadvertent recyclable materials sorter errors may occur 12/18/2023 Dietary counseling and surveillance (ICD-10 - Z71.3) #Weight Management 12/18/2023 Labs reviewed from [facility] September 2023 thriving Given ongoing weight loss this may be a recurrent problem until her weight stabilizes She is working with special librarian and rechecking labs every 4 weeks or [...] minimum of 6 months The most recent [place] [employer] of clinical endocrinologists and [place] [employer] of endocrinology guidelines recommend patients who [...] software and direct typing Please excuse inadvertent recyclable materials sorter or typing errors, or uncorrected word substitutions Although every attempt has been made by the provider to proofread this document, occasional misspellings and typographical errors may still be present Due to the previous pandemic, and the use of personal protective equipment (PPE) This may decrease voice recognition accuracy Inadvertent recyclable materials sorter errors may occur 03/17/2024 Dietary counseling and [...] minimum of 6 months The most recent [place] [employer] of clinical endocrinologists and [place] [employer] of endocrinology guidelines recommend patients who [...] software and direct typing Please excuse inadvertent recyclable materials sorter or typing errors, or uncorrected word substitutions Although every attempt has been made by the provider to proofread this document, occasional misspellings and typographical errors may still be present Due to the previous pandemic, and the use of personal protective equipment (PPE) This may decrease voice recognition accuracy Inadvertent recyclable materials sorter errors may occur 10/01/2024 Dietary counseling and surveillance (ICD-10 - Z71.3) #Weight Management 10/01/2024 Stable on 15 mg of Zepbound Goal is to have BMI under 45 so she can get a left total knee replacement, recently got steroid injections with [facility] She is euthyroid chemically Scheduled for [...] software and direct typing Please excuse inadvertent recyclable materials sorter or typing errors, or uncorrected word substitutions Although every attempt has been made by the provider to proofread this document, occasional misspellings and typographical errors may still be present Due to the previous pandemic, and the use of personal protective equipment (PPE) This may decrease voice recognition accuracy Inadvertent recyclable materials sorter errors may occur 05/05/2024 Dietary counseling and [...] software and direct typing Please excuse inadvertent recyclable materials sorter or typing errors, or uncorrected word substitutions Although every attempt has been made by the provider to proofread this document, occasional misspellings and typographical errors may still be present Due to the previous pandemic, and the use of personal protective equipment (PPE) This may decrease voice recognition accuracy Inadvertent recyclable materials sorter errors may occur 06/22/2024 Type 2 diabetes [...] software and direct typing Please excuse inadvertent recyclable materials sorter or typing errors, or uncorrected word substitutions Although every attempt has been made by the provider to proofread this document, occasional misspellings and typographical errors may still be present Due to the previous pandemic, and the use of personal protective equipment (PPE) This may decrease voice recognition accuracy Inadvertent recyclable materials sorter errors may occur 08/20/2024 Dietary counseling and surveillance (ICD-10 - Z71.3) Acute Concerns/Problem List: 08/20/2024 Labs reviewed and stable Stable on 15 mg of Zepbound Goal is to have BMI under 45 so she can get a left total knee replacement, recently got steroid injections with [facility] Sleep study later in the summer [...] software and direct typing Please excuse inadvertent recyclable materials sorter or typing errors, or uncorrected word substitutions Although every attempt has been made by the provider to proofread this document, occasional misspellings and typographical errors may still be present Due to the previous pandemic, and the use of personal protective equipment (PPE) This may decrease voice recognition accuracy Inadvertent recyclable materials sorter errors may occur 08/20/2024 Type 2 diabetes mellitus without complication, without long-term current use of insulin (ICD-10 - E11.9) Acute Concerns/Problem List: 08/20/2024 Labs reviewed and stable Stable on 15 mg of Zepbound Goal is to have BMI under 45 so she can get a left total knee replacement, recently got steroid injections with [facility] Sleep study later in the summer [...] software and direct typing Please excuse inadvertent recyclable materials sorter or typing errors, or uncorrected word substitutions Although every attempt has been made by the provider to proofread this document, occasional misspellings and typographical errors may still be present Due to the previous pandemic, and the use of personal protective equipment (PPE) This may decrease voice recognition accuracy Inadvertent recyclable materials sorter errors may occur 06/22/2024 Graves disease (ICD-10 [...] software and direct typing Please excuse inadvertent recyclable materials sorter or typing errors, or uncorrected word substitutions Although every attempt has been made by the provider to proofread this document, occasional misspellings and typographical errors may still be present Due to the previous pandemic, and the use of personal protective equipment (PPE) This may decrease voice recognition accuracy Inadvertent recyclable materials sorter errors may occur 05/05/2024 Type 2 diabetes [...] software and direct typing Please excuse inadvertent recyclable materials sorter or typing errors, or uncorrected word substitutions Although every attempt has been made by the provider to proofread this document, occasional misspellings and typographical errors may still be present Due to the previous pandemic, and the use of personal protective equipment (PPE) This may decrease voice recognition accuracy Inadvertent recyclable materials sorter errors may occur 10/01/2024 Type 2 diabetes mellitus without complication, without long-term current use of insulin (ICD-10 - E11.9) #Weight Management 10/01/2024 Stable on 15 mg of Zepbound Goal is to have BMI under 45 so she can get a left total knee replacement, recently got steroid injections with [facility] She is euthyroid chemically Scheduled for [...] software and direct typing Please excuse inadvertent recyclable materials sorter or typing errors, or uncorrected word substitutions Although every attempt has been made by the provider to proofread this document, occasional misspellings and typographical errors may still be present Due to the previous pandemic, and the use of personal protective equipment (PPE) This may decrease voice recognition accuracy Inadvertent recyclable materials sorter errors may occur 12/18/2023 Type 2 diabetes mellitus without complication, without long-term current use of insulin (ICD-10 - E11.9) #Weight Management 12/18/2023 Labs reviewed from [facility] September 2023 thriving Given ongoing weight loss this may be a recurrent problem until her weight stabilizes She is working with special librarian and rechecking labs every 4 weeks or [...] minimum of 6 months The most recent [place] [employer] endocrinologists and [place] [employer]in[employer] guidelines recommend patients who [...] software and direct typing Please excuse inadvertent recyclable materials sorter or typing errors, or uncorrected word substitutions Although every attempt has been made by the provider to proofread this document, occasional misspellings and typographical errors may still be present Due to the previous pandemic, and the use of personal protective equipment (PPE) This may decrease voice recognition accuracy Inadvertent recyclable materials sorter errors may occur 03/17/2024 Type 2 diabetes [...] minimum of 6 months The most recent [place] [employer]ocrinologists and [employer] guidelines recommend patients who [...] software and direct typing Please excuse inadvertent recyclable materials sorter or typing errors, or uncorrected word substitutions Although every attempt has been made by the provider to proofread this document, occasional misspellings and typographical errors may still be present Due to the previous pandemic, and the use of personal protective equipment (PPE) This may decrease voice recognition accuracy Inadvertent recyclable materials sorter errors may occur 03/17/2024 Graves disease (ICD-10 [...] minimum of 6 months The most recent [place] [employer] endocrinologists and [employer] guidelines recommend patients who [...] software and direct typing Please excuse inadvertent recyclable materials sorter or typing errors, or uncorrected word substitutions Although every attempt has been made by the provider to proofread this document, occasional misspellings and typographical errors may still be present Due to the previous pandemic, and the use of personal protective equipment (PPE) This may decrease voice recognition accuracy Inadvertent recyclable materials sorter errors may occur 12/18/2023 Graves disease (ICD-10 - E05.00) #Weight Management 12/18/2023 Labs reviewed from [facility] September 2023 thriving Given ongoing weight loss this may be a recurrent problem until her weight stabilizes She is working with special librarian and rechecking labs every 4 weeks or [...] minimum of 6 months The most recent [place] [employer]ocrinologists and [employer] guidelines recommend patients who [...] software and direct typing Please excuse inadvertent recyclable materials sorter or typing errors, or uncorrected word substitutions Although every attempt has been made by the provider to proofread this document, occasional misspellings and typographical errors may still be present Due to the previous pandemic, and the use of personal protective equipment (PPE) This may decrease voice recognition accuracy Inadvertent recyclable materials sorter errors may occur 10/01/2024 Graves disease (ICD-10 - E05.00) #Weight Management 10/01/2024 Stable on 15 mg of Zepbound Goal is to have BMI under 45 so she can get a left total knee replacement, recently got steroid injections with [facility] She is euthyroid chemically Scheduled for [...] software and direct typing Please excuse inadvertent recyclable materials sorter or typing errors, or uncorrected word substitutions Although every attempt has been made by the provider to proofread this document, occasional misspellings and typographical errors may still be present Due to the previous pandemic, and the use of personal protective equipment (PPE) This may decrease voice recognition accuracy Inadvertent recyclable materials sorter errors may occur 05/05/2024 Graves disease (ICD-10 [...] software and direct typing Please excuse inadvertent recyclable materials sorter or typing errors, or uncorrected word substitutions Although every attempt has been made by the provider to proofread this document, occasional misspellings and typographical errors may still be present Due to the previous pandemic, and the use of personal protective equipment (PPE) This may decrease voice recognition accuracy Inadvertent recyclable materials sorter errors may occur 06/22/2024 Chronic anticoagulation (ICD-10 [...] software and direct typing Please excuse inadvertent recyclable materials sorter or typing errors, or uncorrected word substitutions Although every attempt has been made by the provider to proofread this document, occasional misspellings and typographical errors may still be present Due to the previous pandemic, and the use of personal protective equipment (PPE) This may decrease voice recognition accuracy Inadvertent recyclable materials sorter errors may occur 08/20/2024 Graves disease (ICD-10 - E05.00) Acute Concerns/Problem List: 08/20/2024 Labs reviewed and stable Stable on 15 mg of Zepbound Goal is to have BMI under 45 so she can get a left total knee replacement, recently got steroid injections with [facility] Sleep study later in the summer [...] software and direct typing Please excuse inadvertent recyclable materials sorter or typing errors, or uncorrected word substitutions Although every attempt has been made by the provider to proofread this document, occasional misspellings and typographical errors may still be present Due to the previous pandemic, and the use of personal protective equipment (PPE) This may decrease voice recognition accuracy Inadvertent recyclable materials sorter errors may occur 08/20/2024 Chronic anticoagulation (ICD-10 - Z79.01) Acute Concerns/Problem List: 08/20/2024 Labs reviewed and stable Stable on 15 mg of Zepbound Goal is to have BMI under 45 so she can get a left total knee replacement, recently got steroid injections with [facility] Sleep study later in the summer [...] software and direct typing Please excuse inadvertent recyclable materials sorter or typing errors, or uncorrected word substitutions Although every attempt has been made by the provider to proofread this document, occasional misspellings and typographical errors may still be present Due to the previous pandemic, and the use of personal protective equipment (PPE) This may decrease voice recognition accuracy Inadvertent recyclable materials sorter errors may occur 06/22/2024 PAF (paroxysmal atrial [...] software and direct typing Please excuse inadvertent recyclable materials sorter or typing errors, or uncorrected word substitutions Although every attempt has been made by the provider to proofread this document, occasional misspellings and typographical errors may still be present Due to the previous pandemic, and the use of personal protective equipment (PPE) This may decrease voice recognition accuracy Inadvertent recyclable materials sorter errors may occur 03/17/2024 Chronic anticoagulation (ICD-10 [...] minimum of 6 months The most recent [place] [employer] clinical endocrinologists and [place] [employer] end[employer]in[employer] guidelines recommend patients who [...] software and direct typing Please excuse inadvertent recyclable materials sorter or typing errors, or uncorrected word substitutions Although every attempt has been made by the provider to proofread this document, occasional misspellings and typographical errors may still be present Due to the previous pandemic, and the use of personal protective equipment (PPE) This may decrease voice recognition accuracy Inadvertent recyclable materials sorter errors may occur 05/05/2024 Chronic anticoagulation (ICD-10 [...] software and direct typing Please excuse inadvertent recyclable materials sorter or typing errors, or uncorrected word substitutions Although every attempt has been made by the provider to proofread this document, occasional misspellings and typographical errors may still be present Due to the previous pandemic, and the use of personal protective equipment (PPE) This may decrease voice recognition accuracy Inadvertent recyclable materials sorter errors may occur 10/01/2024 Chronic anticoagulation (ICD-10 - Z79.01) #Weight Management 10/01/2024 Stable on 15 mg of Zepbound Goal is to have BMI under 45 so she can get a left total knee replacement, recently got steroid injections with [facility] She is euthyroid chemically Scheduled for [...] software and direct typing Please excuse inadvertent recyclable materials sorter or typing errors, or uncorrected word substitutions Although every attempt has been made by the provider to proofread this document, occasional misspellings and typographical errors may still be present Due to the previous pandemic, and the use of personal protective equipment (PPE) This may decrease voice recognition accuracy Inadvertent recyclable materials sorter errors may occur 12/18/2023 Chronic anticoagulation (ICD-10 - Z79.01) #Weight Management 12/18/2023 Labs reviewed from [facility] September 2023 thriving Given ongoing weight loss this may be a recurrent problem until her weight stabilizes She is working with special librarian and rechecking labs every 4 weeks or [...] minimum of 6 months The most recent [place] [employer] endocrinologists and [place] [employer]in[employer] guidelines recommend patients who [...] software and direct typing Please excuse inadvertent recyclable materials sorter or typing errors, or uncorrected word substitutions Although every attempt has been made by the provider to proofread this document, occasional misspellings and typographical errors may still be present Due to the previous pandemic, and the use of personal protective equipment (PPE) This may decrease voice recognition accuracy Inadvertent recyclable materials sorter errors may occur 12/18/2023 PAF (paroxysmal atrial fibrillation) (ICD-10 - I48.0) #Weight Management 12/18/2023 Labs reviewed from [facility] September 2023 thriving Given ongoing weight loss this may be a recurrent problem until her weight stabilizes She is working with special librarian and rechecking labs every 4 weeks or [...] minimum of 6 months The most recent [place] [employer] clinical endocrinologists and [place] [employer]in[employer] guidelines recommend patients who [...] software and direct typing Please excuse inadvertent recyclable materials sorter or typing errors, or uncorrected word substitutions Although every attempt has been made by the provider to proofread this document, occasional misspellings and typographical errors may still be present Due to the previous pandemic, and the use of personal protective equipment (PPE) This may decrease voice recognition accuracy Inadvertent recyclable materials sorter errors may occur 03/17/2024 PAF (paroxysmal atrial [...] minimum of 6 months The most recent [place] [employer] clinical endocrinologists and [place] [employer] end[employer]inology guidelines recommend patients who [...] software and direct typing Please excuse inadvertent recyclable materials sorter or typing errors, or uncorrected word substitutions Although every attempt has been made by the provider to proofread this document, occasional misspellings and typographical errors may still be present Due to the previous pandemic, and the use of personal protective equipment (PPE) This may decrease voice recognition accuracy Inadvertent recyclable materials sorter errors may occur 10/01/2024 PAF (paroxysmal atrial fibrillation) (ICD-10 - I48.0) #Weight Management 10/01/2024 Stable on 15 mg of Zepbound Goal is to have BMI under 45 so she can get a left total knee replacement, recently got steroid injections with [facility] She is euthyroid chemically Scheduled for [...] software and direct typing Please excuse inadvertent recyclable materials sorter or typing errors, or uncorrected word substitutions Although every attempt has been made by the provider to proofread this document, occasional misspellings and typographical errors may still be present Due to the previous pandemic, and the use of personal protective equipment (PPE) This may decrease voice recognition accuracy Inadvertent recyclable materials sorter errors may occur 05/05/2024 PAF (paroxysmal atrial [...] software and direct typing Please excuse inadvertent recyclable materials sorter or typing errors, or uncorrected word substitutions Although every attempt has been made by the provider to proofread this document, occasional misspellings and typographical errors may still be present Due to the previous pandemic, and the use of personal protective equipment (PPE) This may decrease voice recognition accuracy Inadvertent recyclable materials sorter errors may occur 06/22/2024 NICHOLE (obstructive sleep [...] software and direct typing Please excuse inadvertent recyclable materials sorter or typing errors, or uncorrected word substitutions Although every attempt has been made by the provider to proofread this document, occasional misspellings and typographical errors may still be present Due to the previous pandemic, and the use of personal protective equipment (PPE) This may decrease voice recognition accuracy Inadvertent recyclable materials sorter errors may occur 08/20/2024 PAF (paroxysmal atrial fibrillation) (ICD-10 - I48.0) Acute Concerns/Problem List: 08/20/2024 Labs reviewed and stable Stable on 15 mg of Zepbound Goal is to have BMI under 45 so she can get a left total knee replacement, recently got steroid injections with [facility] Sleep study later in the summer [...] software and direct typing Please excuse inadvertent recyclable materials sorter or typing errors, or uncorrected word substitutions Although every attempt has been made by the provider to proofread this document, occasional misspellings and typographical errors may still be present Due to the previous pandemic, and the use of personal protective equipment (PPE) This may decrease voice recognition accuracy Inadvertent recyclable materials sorter errors may occur 08/20/2024 NICHOLE (obstructive sleep apnea) (ICD-10 - G47.33) Acute Concerns/Problem List: 08/20/2024 Labs reviewed and stable Stable on 15 mg of Zepbound Goal is to have BMI under 45 so she can get a left total knee replacement, recently got steroid injections with [facility] Sleep study later in the summer [...] software and direct typing Please excuse inadvertent recyclable materials sorter or typing errors, or uncorrected word substitutions Although every attempt has been made by the provider to proofread this document, occasional misspellings and typographical errors may still be present Due to the previous pandemic, and the use of personal protective equipment (PPE) This may decrease voice recognition accuracy Inadvertent recyclable materials sorter errors may occur 06/22/2024 Sensorineural hearing loss [...] software and direct typing Please excuse inadvertent recyclable materials sorter or typing errors, or uncorrected word substitutions Although every attempt has been made by the provider to proofread this document, occasional misspellings and typographical errors may still be present Due to the previous pandemic, and the use of personal protective equipment (PPE) This may decrease voice recognition accuracy Inadvertent recyclable materials sorter errors may occur 10/01/2024 NIHCOLE (obstructive sleep apnea) (ICD-10 - G47.33) #Weight Management 10/01/2024 Stable on 15 mg of Zepbound Goal is to have BMI under 45 so she can get a left total knee replacement, recently got steroid injections with [facility] She is euthyroid chemically Scheduled for [...] software and direct typing Please excuse inadvertent recyclable materials sorter or typing errors, or uncorrected word substitutions Although every attempt has been made by the provider to proofread this document, occasional misspellings and typographical errors may still be present Due to the previous pandemic, and the use of personal protective equipment (PPE) This may decrease voice recognition accuracy Inadvertent recyclable materials sorter errors may occur 05/05/2024 NICHOLE (obstructive sleep [...] software and direct typing Please excuse inadvertent recyclable materials sorter or typing errors, or uncorrected word substitutions Although every attempt has been made by the provider to proofread this document, occasional misspellings and typographical errors may still be present Due to the previous pandemic, and the use of personal protective equipment (PPE) This may decrease voice recognition accuracy Inadvertent recyclable materials sorter errors may occur 03/17/2024 NICHOLE (obstructive sleep [...] minimum of 6 months The most recent [place] [employer] clinical endocrinologists and [place] [employer] end[employer]in[employer] guidelines recommend patients who [...] software and direct typing Please excuse inadvertent recyclable materials sorter or typing errors, or uncorrected word substitutions Although every attempt has been made by the provider to proofread this document, occasional misspellings and typographical errors may still be present Due to the previous pandemic, and the use of personal protective equipment (PPE) This may decrease voice recognition accuracy Inadvertent recyclable materials sorter errors may occur 12/18/2023 NICHOLE (obstructive sleep apnea) (ICD-10 - G47.33) #Weight Management 12/18/2023 Labs reviewed from [facility] September 2023 thriving Given ongoing weight loss this may be a recurrent problem until her weight stabilizes She is working with special librarian and rechecking labs every 4 weeks or [...] minimum of 6 months The most recent [place] [employer] endocrinologists and [place] [employer] guidelines recommend patients who [...] software and direct typing Please excuse inadvertent recyclable materials sorter or typing errors, or uncorrected word substitutions Although every attempt has been made by the provider to proofread this document, occasional misspellings and typographical errors may still be present Due to the previous pandemic, and the use of personal protective equipment (PPE) This may decrease voice recognition accuracy Inadvertent recyclable materials sorter errors may occur 08/20/2024 Sensorineural hearing loss (SNHL) of both ears (ICD-10 - H90.3) Acute Concerns/Problem List: 08/20/2024 Labs reviewed and stable Stable on 15 mg of Zepbound Goal is to have BMI under 45 so she can get a left total knee replacement, recently got steroid injections with [facility] Sleep study later in the summer [...] software and direct typing Please excuse inadvertent recyclable materials sorter or typing errors, or uncorrected word substitutions Although every attempt has been made by the provider to proofread this document, occasional misspellings and typographical errors may still be present Due to the previous pandemic, and the use of personal protective equipment (PPE) This may decrease voice recognition accuracy Inadvertent recyclable materials sorter errors may occur 10/01/2024 Sensorineural hearing loss (SNHL) of both ears (ICD-10 - H90.3) #Weight Management 10/01/2024 Stable on 15 mg of Zepbound Goal is to have BMI under 45 so she can get a left total knee replacement, recently got steroid injections with [facility] She is euthyroid chemically Scheduled for [...] software and direct typing Please excuse inadvertent recyclable materials sorter or typing errors, or uncorrected word substitutions Although every attempt has been made by the provider to proofread this document, occasional misspellings and typographical errors may still be present Due to the previous pandemic, and the use of personal protective equipment (PPE) This may decrease voice recognition accuracy Inadvertent recyclable materials sorter errors may occur 10/01/2024 Encounter for examination of blood pressure without abnormal findings (ICD-10 - Z01.30) #Weight Management 10/01/2024 Stable on 15 mg of Zepbound Goal is to have BMI under 45 so she can get a left total knee replacement, recently got steroid injections with [facility] She is euthyroid chemically Scheduled for [...] software and direct typing Please excuse inadvertent recyclable materials sorter or typing errors, or uncorrected word substitutions Although every attempt has been made by the provider to proofread this document, occasional misspellings and typographical errors may still be present Due to the previous pandemic, and the use of personal protective equipment (PPE) This may decrease voice recognition accuracy Inadvertent recyclable materials sorter errors may occur 08/20/2024 Encounter for examination of blood pressure without abnormal findings (ICD-10 - Z01.30) Acute Concerns/Problem List: 08/20/2024 Labs reviewed and stable Stable on 15 mg of Zepbound Goal is to have BMI under 45 so she can get a left total knee replacement, recently got steroid injections with [facility] Sleep study later in the summer [...] software and direct typing Please excuse inadvertent recyclable materials sorter or typing errors, or uncorrected word substitutions Although every attempt has been made by the provider to proofread this document, occasional misspellings and typographical errors may still be present Due to the previous pandemic, and the use of personal protective equipment (PPE) This may decrease voice recognition accuracy Inadvertent recyclable materials sorter errors may occur Plan Of Treatment Pending Test Test Name Order Date Bone Density 05/05/2024 Next Appt Details Provider Name:MADDIE REYES, 11/19/2024 10:00:00 AM, [address] [facility], [facility] [address], [place], [address], Insurance Providers Payer Name Payer Address Payer Phone Subscriber Number Group Number Insured Name Patient Relationship to Insured Coverage Start Date Coverage End Date [facility] [address] [place] [address] [phone] [id number] Corazon Cortez Self - patient is the insured Medical (General) History Medical History History ICD Code diabetes mellitus graves disease afib gastroesophageal reflux disease (GERD) hyperlipidemia asthma sleep apnea Surgical History Surgery Date(Month/Year) cholecystectomy umbilical hernia repair arthroscopic knee surgery left partial hysterectomy Hospitalization History Reason Date(Month/Year) cardioversion x 3 episodes (01/2022, 2020, 09/2019)
--- OUTSIDE RECORDS SUMMARY | 2024-11-09 12:46 | XMS_ITS | Patient Health Record ---
Author Organization [facility] Address [address] [facility] [place] [address] Care Team Providers Care Nailer Operator Name Role Phone Sean MKCEE, Blaire Primary Care Provider Lily Corral Unavailable [phone] Allergies Allergen (clinical drug ingredient) Drug/Non Drug [...] Problem Acquired hammer toe of right foot (2728372191020684 ) Other hammer toe(s) (acquired), right foot (M20.41) Active confirmed Problem Acquired hammer toe of left foot (6187614552212248 ) Other hammer toe(s) (acquired), left foot (M20.42) Active confirmed Problem Acquired hammer toe of left foot (2837915506514106 ) Hammer toe of left foot (M20.42) Active confirmed Problem Polyneuropathy due to type 2 diabetes mellitus (527784581) Type 2 diabetes mellitus with polyneuropathy (E11.42) Active confirmed Problem Plantar fascial fibromatosis (92556726) Plantar fasciitis, bilateral (M72.2) Active confirmed Vital Signs Blood pressure diastolic 65 mm Hg 10/22/2024 Height 5ft 6in in 10/22/2024 Blood pressure systolic 120 mm Hg 10/22/2024 Weight 292 lbs 10/22/2024 BMI 47.12 kg/m2 10/22/2024 Encounters Encounter Location Date Provider Diagnosis [address] [address] 11/14/2023 Lily Toledo Type 2 diabetes mellitus with polyneuropathy E11.42 and Tinea pedis B35.[address] [address] 01/27/2024 Lily Toledo Type 2 diabetes mellitus with polyneuropathy E11.[address] [address] 05/20/2024 Lily Toledo Type 2 diabetes mellitus [...] M60.872 and Bursitis of left foot M77.[address] [address] 07/30/2024 Lily Toledo Type 2 diabetes mellitus [...] and Tinea pedis of both feet B35.[address] [address] 10/22/2024 Lily Toledo Plantar fasciitis, bilateral M72.2 ; Tinea pedis of both feet B35.3 and Type 2 diabetes mellitus with polyneuropathy E11.[address] [address] 05/21/2024 Lily Toledo [facility] [place] [address] [facility] [address] [place] [address] 08/04/2024 Lily Toledo Assessments Encounter Date Diagnosis (ICD Code) Assessment Notes Treatment Notes Treatment Clinical Notes Section Notes 11/14/2023 Type 2 diabetes mellitus with polyneuropathy (ICD-10 - E11.42) 01/27/2024 Type 2 diabetes mellitus with polyneuropathy (ICD-10 - E11.42) 07/30/2024 Type 2 diabetes mellitus with polyneuropathy (ICD-10 - E11.42) 10/22/2024 Tinea pedis of both feet (ICD-10 - B35.3) 10/22/2024 Plantar fasciitis, bilateral (ICD-10 - M72.2) 05/20/2024 Type 2 diabetes mellitus with polyneuropathy (ICD-10 - E11.42) 05/20/2024 Plantar fasciitis, bilateral (ICD-10 - M72.2) Patient Educated with: HEEL CORD STRETCHES.pdf (HEEL CORD STRETCHES.pdf ) Patient Educated with: RICE THERAPY.pdf (RICE THERAPY.pdf) 05/20/2024 Pain in right foot (ICD-10 - M79.671) 07/30/2024 Plantar fasciitis, bilateral (ICD-10 - M72.2) Patient Educated with: HEEL CORD STRETCHES.pdf (HEEL CORD STRETCHES.pdf ) Patient Educated with: RICE THERAPY.pdf (RICE THERAPY.pdf) 10/22/2024 Type 2 diabetes mellitus with polyneuropathy (ICD-10 - E11.42) 11/14/2023 Tinea pedis (ICD-10 - B35.3) 07/30/2024 Pain in right foot (ICD-10 - M79.671) 05/20/2024 Calcaneal spur, right foot (ICD-10 - M77.31) 05/20/2024 Other myositis of right foot (ICD-10 - M60.871) 07/30/2024 Calcaneal spur, right foot (ICD-10 - M77.31) 05/20/2024 Bursitis of right foot (ICD-10 - M77.51) 07/30/2024 Other myositis of right foot (ICD-10 - M60.871) 07/30/2024 Bursitis of right foot (ICD-10 - M77.51) 05/20/2024 Pain in left foot (ICD-10 - M79.672) 05/20/2024 Calcaneal spur, left foot (ICD-10 - M77.32) 07/30/2024 Pain in left foot (ICD-10 - M79.672) 07/30/2024 Calcaneal spur, left foot (ICD-10 - M77.32) 05/20/2024 Other myositis of left foot (ICD-10 - M60.872) 05/20/2024 Bursitis of left foot (ICD-10 - M77.52) 07/30/2024 Other myositis of left foot (ICD-10 - M60.872) 07/30/2024 Bursitis of left foot (ICD-10 - M77.52) 07/30/2024 Tinea pedis of both feet (ICD-10 - B35.3) Plan Of Treatment Pending Test Test Name Order Date X ray : Foot, left 3V 05/20/2024 X ray : Foot, right 3V 05/20/2024 Next Appt Details Provider Name:Lily freeman, 12/28/2024 03:00:00 PM, [address] [facility], [place], [address], Insurance Providers Payer Name Payer Address Payer Phone Subscriber Number Group Number Insured Name Patient Relationship to Insured Coverage Start Date Coverage End Date [facility] [id number] [place] [address] [phone] [id number] Corazon Cortez Self - patient is the [...]
--- OUTSIDE RECORDS SUMMARY | 2024-11-09 12:46 | XMS_ITS | Clinical Summary ---
Author Organization [facility] Address [address] [place] [phone] Phone Care Team Providers Care Agricultural Extension Officer Name Role Phone Blaire Estrada AUXILIARY POWER EQUIPMENT OPERATOR Primary Care Provider [phone] Surgical History Surgery Date Site/Laterality Comments CHOLECYSTECTOMY 1993 PROCEDURE: HISTORICAL CHOLECYSTECTOMY OTHER SURGICAL HISTORY 2001 PROCEDURE: [place] LAPAROSCOPY SALPINGOSTOMY; COMMENT: left TONSILLECTOMY 1995 PROCEDURE: [...] probability of hip fracture of 0.0%. Code 97441 -------- FINAL REPORT -------- Dictated By: Rah Chamberlain Dictated Date: 05/20/2024 08:31 ET Assigned Physician: Rah Chamberlain Reviewed and Electronically Signed By: Rah Chamberlain Signed Date: 05/20/2024 08:32 ET Workstation ID: [id number] Transcribed By: Self Edit Transcribed Date: 05/20/2024 [...] density of the femurs bilaterally is 1.258 gm/cm2yeaab is 125% of that of young normals [...] probability of hip fracture of 0.0%. Code 32864 -------- FINAL REPORT -------- Dictated By: Rah Chamberlain Dictated Date: 05/20/2024 08:31 ET Assigned Physician: Rah Chamberlain Reviewed and Electronically Signed By: Rah Chamberlain Signed Date: 05/20/2024 08:32 ET Workstation ID: [id number] Transcribed By: Self Edit Transcribed Date: 05/20/2024 08:31 ET Blaire Estrada NP IMG DXA PROCEDURES Final Resu lt from Last 3 Months or Most Recently Relevant to Health Maintenance Insurance [facility] Care Teams Agricultural Extension Officer Relationship Specialty Start Date End Date Blaire Estrada NP [address] [address] PCP - General Nurse Practitioner 05/20/24
== END 2024-11-10 07:08 | disposition home or self-care (01) ==
LOC: HO.HWS 09:53
PROVIDERS: PCP Nurse Practitioner Acute Care; Visit Provider Advanced Practice Midwife
DX: L29.2 Pruritus vulvae (principal)
CPT/HCPCS: 56605; 56606

== ENCOUNTER → 2024-11-09 09:53 | Outpatient (BNVA) | payer BC, SELFPAY | PROVIDERS: PCP Nurse Practitioner Acute Care; Visit Provider Advanced Practice Midwife | DX: L29.2 Pruritus vulvae (principal) | CPT/HCPCS: 56605; 56606 ==

== ENCOUNTER 2024-11-10 10:43 | Outpatient (REF) | payer BC, SELFPAY ==
--- OUTSIDE RECORDS SUMMARY | 2024-04-09 05:30 | XMS_ITS ---
Author Organization [facility] Address [address] [place] [address] Care Team Providers Care Chemical Laboratory Chief Name Role Phone Sean MCKEE, Blaire Primary Care Provider Lily Corral [phone] Ma Encounters Encounter Location Date Provider Diagnosis [address] [address] 04/09/2024 Lily Toledo Plan Of Treatment Next Appt Details Provider Name:Lily freeman, 12/28/2024 03:00:00 PM, [address] [place], [address], Progress Notes * Ran BRISENOVladOB: [birth year] (54 yo F)Acc No.[id number]:04/09/2024 Progress Note Patient: Corazon CORDOVA Provider: Ramón Toledo DPM :1970 A ge:53 Y S ex:Female Date:04/09/2024 Address:[address] Pcp:Blaire Estrada NP Subjective: * Chief Complaints: [...] 04/09/2024 Generated for Jeri Dowd/Ralph on: 0 11/10/2024 01:36 PM EDT
--- OUTSIDE RECORDS SUMMARY | 2024-04-16 08:45 | XMS_ITS ---
Author Organization [facility] Address [address] [facility] [place] [address] Care Team Providers Care Marionette Performer Name Role Phone Sean MCKEE, Blaire Primary Care Provider Lily Corral Unavailable [phone] Allergies Allergen (clinical drug ingredient) Drug/Non Drug [...] Active Encounters Encounter Location Date Provider Diagnosis [facility] [address] [address] 04/16/2024 Lily Toledo Plan Of Treatment Next Appt Details Provider Name:Lily freeman, 12/28/2024 03:00:00 PM, [address] [place] [address], [phone], Progress Notes * Lexi CORTEZOB: [birth year] (54 yo F)Acc No.[id number]:04/16/2024 Progress Note Patient: Corazon CORDOVA Provider: Ramón Toledo DPM :1970 A ge:53 Y S ex:Female Date:04/16/2024 Address:[address] [place], [place] [id number] Pcp:Blaire Estrada NP Subjective: * Chief Complaints: [...] 04/16/2024 Generated for Jeri hauser/Flores/Ralph on: 0 11/10/2024 01:36 PM EDT
--- OUTSIDE RECORDS SUMMARY | 2024-11-10 13:36 | XMS_ITS | Patient Health Record ---
Author Organization [facility] Address [address] [place] [address] Care Team Providers Care Sand Car Worker Name Role Phone MADDIE REYES Unavailable [phone] Allergies Allergen (clinical drug ingredient) Drug/Non Drug Allergy documented on EMR Reaction Allergy Type Onset Date Status ibuprofen Ibuprofen Blood thinner Drug Allergy Act indigo Results Component Value Reference Range Notes BD BONE DENSITY DXA AXIAL SK ELETON Reviewed date:05/20/2024 08:56:43 AM Interpretation: Performing Lab: Notes/Report: Note See Note [facility], a member of [facility] Patient Name: CORAZON CORTEZ Date of : 1970 Reason for Exam: SCREENING Exam Date: 05/20/2024 [id number] EST Report Status: Final Ordering Provider: MADDIE [...] probability of hip fracture of 0.0%. Code 74544 -------- FINAL REPOR T -------- Dictated By: Rah Chamberlain Dictated Date: 05/20 08:31 ET Assigned Physician: Rah Chamberlain Reviewed and Electro nically Signed By: Rah Chamberlain Signed Date: 025 08:32 ET Workstation ID: [id number] Transcribed By: Self Edit Transcribed Date: 05/20/2024 08:31 ET Reason For Referral Reason Home Sleep Study ([facility]) Diagnosis 1 Obstructive apnea (G 47.33) Referral Organization [facility] [address] Referring Provider First Name MADDIE Referring Provider Last Name PHOEBEHOT Referring Provider Speciality Internal M edicine Referred Provider Specialty Pulmonology General Notes Alba Vail 01/2025 09:38:15 AM > Pt given phone [phone] to call and make an appt and referral form faxed to [phone] Clinical Notes Ursula Sanon 06/28 12:26:35 PM >can you resend referral to [facility] needs a insurance referral, Gomez Aquino 07/05/2024 09:43:16 AM > refaxed to [facility] Referral Priority Routine Reason [facility] Diagnosis 1 Sensorineural hearin g loss (SNHL) of both ears (H90.3) Referral Organization [facility] [address] Referring Provider First Name MADDIE [...] Status Risk Notes Problem Screening for osteoporosis (589058581) Encounter for screening for osteoporosis (Z13.820) Active confirmed Problem Morbid obesity (076824943) Morbid obesity (E66.01) Active confirmed Problem Obstructive sleep apnea syndrome (40165339) NICHOLE (obstructive sleep apnea) (G47.33) Active confirmed Problem Use of anticoagulation (731231250) Chronic anticoagulation (Z79.01) Active confirmed Problem Type II diabetes mellitus without complication (619346433) Type 2 diabetes mellitus without complication, without long-term current use of insulin (E11.9) Active confirmed Problem Body mass index 40+ - severely obese (316404348) BMI 50.0-59.9, adult (Z68.43) Active confirmed Problem Graves disease (875157466) Graves disease (E05.00) Active confirmed Problem Atrial fibrillation (24199317) PAF (paroxysmal atrial fibrillation) (I48.0) Active confirmed Problem Body mass index 40+ - severely obese (168999680) BMI 45.0-49.9, adult (Z68.42) Active confirmed Problem Sensorineural hearing loss, bilateral (576033333) Sensorineural hearing loss (SNHL) of both ears (H90.3) Active confirmed Problem Obstructive sleep apnea syndrome (86896344) Obstructive apnea (G47.33) Active confirmed Vital Signs Heart Rate 77 /min 10/01/2024 Oximetry 96 % 10/01/2024 Blood pressure diastolic 70 mm Hg 10/01/2024 Height 66 in 10/01/2024 Blood pressure systolic 120 mm Hg 10/01/2024 Weight 294.3 lbs 10/01/2024 BMI 47.5 kg/m2 10/01/2024 Encounters Encounter Location Date Provider Diagnosis [facility] [address] [address] 12/18/2023 MADDIE REYES Morbid obesity E66.0 1 ; BMI 45.0-49.9, adult Z68.42 ; Dietary counseling and surveillance Z71.3 ; Type 2 diabetes mellitus without complication, without long-term current use of insulin E11.9 ; Graves disease E05.00 ; Chronic anticoagulation Z79.01 ; PAF (paroxysmal atrial fibrillation) I48.0 and NICHOLE (obstructive sleep apnea) G47.33 [facility] [address] [address] 03/17/2024 MADDIE REYES Morbid obesity E66.0 1 ; BMI 45.0-49.9, adult Z68.42 ; Dietary counseling and surveillance Z71.3 ; Type 2 diabetes mellitus without complication, without long-term current use of insulin E11.9 ; Graves disease E05.00 ; Chronic anticoagulation Z79.01 ; PAF (paroxysmal atrial fibrillation) I48.0 and NICHOLE (obstructive sleep apnea) G47.33 [facility] [address] [address] 05/05/2024 MADDIE REYES Morbid obesity E66.0 1 ; BMI 45.0-49.9, adult Z68.42 ; Dietary counseling and surveillance Z71.3 ; Type 2 diabetes mellitus without complication, without long-term current use of insulin E11.9 ; Graves disease E05.00 ; Chronic anticoagulation Z79.01 ; PAF (paroxysmal atrial fibrillation) I48.0 and NICHOLE (obstructive sleep apnea) G47.33 [facility] [address] [address] 06/22/2024 MADDIE REYES Morbid obesity E66.0 1 ; BMI 45.0-49.9, adult Z68.42 ; Dietary counseling and surveillance Z71.3 ; Type 2 diabetes mellitus without complication, without long-term current use of insulin E11.9 ; Graves disease E05.00 ; Chronic anticoagulation Z79.01 ; PAF (paroxysmal atrial fibrillation) I48.0 ; NICHOLE (obstructive sleep apnea) G47.33 and Sensorineural hearing loss (SNHL) of both ears H90.3 [facility] [address] [address] 08/20/2024 MADDIE REYES Morbid obesity E66.0 1 [...] of blood pressure without abnormal findings Z01.30 [facility] [address] [address] 10/01/2024 MADDIE REYES Morbid obesity E66.0 1 [...] Z01.30 [facility] [address] [address] 11/12/2023 MADDIE REYES Morbid obesity E66.0 1 [facility] [address] [address] 04/19/2024 MADDIE FINNT [facility] [address] [address] 05/05/2024 MADDIE REYES Encounter for screen ing for osteoporosis Z13.[address] [facility] [address] [place] [address] 05/20/2024 MADDIE BORHOT [facility] [address] 06/28/2024 MADDIE BRISENOT [facility] [address] [place] [address] 07/02/2024 MADDIE BORHOT [facility] [address] [place] [address] 08/20/2024 MADDIE REYES Annual physical exam Z00.00 [facility] [address] [address] 06/26/2024 MADDIE PHOEBEHOT [facility] [address] 07/02/2024 MADDIE BORHOT [facility] [address] 07/03/2024 MADDIE BORHOT [facility] [address] [address] 07/05/2024 MADDIE BORHOT [facility] [address] 07/06/2024 MADDIE PHOEBEHOT [facility] [address] [address] 08/21/2024 MADDIE SANDHUHOT [facility] [address] /07/2025 MADDIE REYES Annual physical exam Z00.00 [facility] [address] [place] [address] [place] [address] 08/31/2024 MADDIE REYES Annual physical exam Z00.00 [facility] [address] [facility] [address] [place] [address] 10/26/2024 MADDIE REYES Assessments Encounter Date Diagnosis (ICD Code) Assessment Notes Treatment Notes Treatment Clinical Notes Section Notes 11/12/2023 Morbid obesity (ICD-10 - E66.01) 03/17/2024 Morbid obesity (ICD-10 - E66.01) #Weight [...] minimum of 6 months The most recent [place] [employer] endocrinologists and [employer] guidelines recommend patients who [...] software and direct typing Please excuse inadvertent hot bread baker or typing errors, or uncorrected word substitutions Although every attempt has been made by the provider to proofread this document, occasional misspellings and typographical errors may still be present Due to the previous pandemic, and the use of personal protective equipment (PPE) This may decrease voice recognition accuracy Inadvertent hot bread baker errors may occur 05/05/2024 Morbid obesity (ICD-10 [...] software and direct typing Please excuse inadvertent hot bread baker or typing errors, or uncorrected word substitutions Although every attempt has been made by the provider to proofread this document, occasional misspellings and typographical errors may still be present Due to the previous pandemic, and the use of personal protective equipment (PPE) This may decrease voice recognition accuracy Inadvertent hot bread baker errors may occur 05/05/2024 Encounter for screening [...] software and direct typing Please excuse inadvertent hot bread baker or typing errors, or uncorrected word substitutions Although every attempt has been made by the provider to proofread this document, occasional misspellings and typographical errors may still be present Due to the previous pandemic, and the use of personal protective equipment (PPE) This may decrease voice recognition accuracy Inadvertent hot bread baker errors may occur 06/22/2024 BMI 45.0-49.9, adult [...] software and direct typing Please excuse inadvertent hot bread baker or typing errors, or uncorrected word substitutions Although every attempt has been made by the provider to proofread this document, occasional misspellings and typographical errors may still be present Due to the previous pandemic, and the use of personal protective equipment (PPE) This may decrease voice recognition accuracy Inadvertent hot bread baker errors may occur 08/20/2024 Morbid obesity (ICD-10 - E66.01) Acute Concerns/Problem List: 08/20/2024 Labs reviewed and stable Stable on 15 mg of Zepbound Goal is to have BMI under 45 so she can get a left total knee replacement, recently got steroid injections with [facility] Sleep study later in the summer [...] software and direct typing Please excuse inadvertent hot bread baker or typing errors, or uncorrected word substitutions Although every attempt has been made by the provider to proofread this document, occasional misspellings and typographical errors may still be present Due to the previous pandemic, and the use of personal protective equipment (PPE) This may decrease voice recognition accuracy Inadvertent hot bread baker errors may occur 08/20/2024 Annual physical exam (ICD-10 - Z00.00) Acute Concerns/Problem List: 08/20/2024 Labs reviewed and stable Stable on 15 mg of Zepbound Goal is to have BMI under 45 so she can get a left total knee replacement, recently got steroid injections with [facility] Sleep study later in the summer [...] software and direct typing Please excuse inadvertent hot bread baker or typing errors, or uncorrected word substitutions Although every attempt has been made by the provider to proofread this document, occasional misspellings and typographical errors may still be present Due to the previous pandemic, and the use of personal protective equipment (PPE) This may decrease voice recognition accuracy Inadvertent hot bread baker errors may occur 08/20/2024 Annual physical exam (ICD-10 - Z00.00) 08/30/2024 Annual physical exam (ICD-10 - Z00.00) 08/31/2024 Annual physical exam (ICD-10 - Z00.00) 10/01/2024 Morbid obesity (ICD-10 - E66.01) #Weight Management 10/01/2024 Stable on 15 mg of Zepbound Goal is to have BMI under 45 so she can get a left total knee replacement, recently got steroid injections with [facility] She is euthyroid chemically Scheduled for [...] software and direct typing Please excuse inadvertent hot bread baker or typing errors, or uncorrected word substitutions Although every attempt has been made by the provider to proofread this document, occasional misspellings and typographical errors may still be present Due to the previous pandemic, and the use of personal protective equipment (PPE) This may decrease voice recognition accuracy Inadvertent hot bread baker errors may occur 12/18/2023 Morbid obesity (ICD-10 - E66.01) #Weight Management 12/18/2023 Labs reviewed from September 2023 thriving Given ongoing weight loss this may be a recurrent problem until her weight stabilizes 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 or [...] minimum of 6 months The most recent [place] [employer] clinical endocrinologists and [employer] guidelines recommend patients who [...] software and direct typing Please excuse inadvertent hot bread baker or typing errors, or uncorrected word substitutions Although every attempt has been made by the provider to proofread this document, occasional misspellings and typographical errors may still be present Due to the previous pandemic, and the use of personal protective equipment (PPE) This may decrease voice recognition accuracy Inadvertent hot bread baker errors may occur 12/18/2023 BMI 45.0-49.9, adult (ICD-10 - Z68.42) #Weight Management 12/18/2023 Labs reviewed from September 2023 thriving Given ongoing weight loss this may be a recurrent problem until her weight stabilizes 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 or [...] minimum of 6 months The most recent [place] [employer] of clinical endocrinologists and [employer]in[employer] guidelines recommend patients who [...] software and direct typing Please excuse inadvertent hot bread baker or typing errors, or uncorrected word substitutions Although every attempt has been made by the provider to proofread this document, occasional misspellings and typographical errors may still be present Due to the previous pandemic, and the use of personal protective equipment (PPE) This may decrease voice recognition accuracy Inadvertent hot bread baker errors may occur 10/01/2024 BMI 45.0-49.9, adult (ICD-10 - Z68.42) #Weight Management 10/01/2024 Stable on 15 mg of Zepbound Goal is to have BMI under 45 so she can get a left total knee replacement, recently got steroid injections with [facility] She is euthyroid chemically Scheduled for [...] software and direct typing Please excuse inadvertent hot bread baker or typing errors, or uncorrected word substitutions Although every attempt has been made by the provider to proofread this document, occasional misspellings and typographical errors may still be present Due to the previous pandemic, and the use of personal protective equipment (PPE) This may decrease voice recognition accuracy Inadvertent hot bread baker errors may occur 08/20/2024 BMI 45.0-49.9, adult (ICD-10 - Z68.42) Acute Concerns/Problem List: 08/20/2024 Labs reviewed and stable Stable on 15 mg of Zepbound Goal is to have BMI under 45 so she can get a left total knee replacement, recently got steroid injections with [facility] Sleep study later in the summer [...] software and direct typing Please excuse inadvertent hot bread baker or typing errors, or uncorrected word substitutions Although every attempt has been made by the provider to proofread this document, occasional misspellings and typographical errors may still be present Due to the previous pandemic, and the use of personal protective equipment (PPE) This may decrease voice recognition accuracy Inadvertent hot bread baker errors may occur 06/22/2024 Dietary counseling and [...] software and direct typing Please excuse inadvertent hot bread baker or typing errors, or uncorrected word substitutions Although every attempt has been made by the provider to proofread this document, occasional misspellings and typographical errors may still be present Due to the previous pandemic, and the use of personal protective equipment (PPE) This may decrease voice recognition accuracy Inadvertent hot bread baker errors may occur 05/05/2024 BMI 45.0-49.9, adult [...] software and direct typing Please excuse inadvertent hot bread baker or typing errors, or uncorrected word substitutions Although every attempt has been made by the provider to proofread this document, occasional misspellings and typographical errors may still be present Due to the previous pandemic, and the use of personal protective equipment (PPE) This may decrease voice recognition accuracy Inadvertent hot bread baker errors may occur 03/17/2024 BMI 45.0-49.9, adult [...] minimum of 6 months The most recent [place] [employer] of clinical endocrinologists and [employer] end[employer]in[employer] guidelines recommend patients who [...] software and direct typing Please excuse inadvertent hot bread baker or typing errors, or uncorrected word substitutions Although every attempt has been made by the provider to proofread this document, occasional misspellings and typographical errors may still be present Due to the previous pandemic, and the use of personal protective equipment (PPE) This may decrease voice recognition accuracy Inadvertent hot bread baker errors may occur 05/05/2024 Dietary counseling and [...] software and direct typing Please excuse inadvertent hot bread baker or typing errors, or uncorrected word substitutions Although every attempt has been made by the provider to proofread this document, occasional misspellings and typographical errors may still be present Due to the previous pandemic, and the use of personal protective equipment (PPE) This may decrease voice recognition accuracy Inadvertent hot bread baker errors may occur 03/17/2024 Dietary counseling and [...] minimum of 6 months The most recent [place] [employer] of clinical endocrinologists and [employer] endocrin[employer] guidelines recommend patients who [...] software and direct typing Please excuse inadvertent hot bread baker or typing errors, or uncorrected word substitutions Although every attempt has been made by the provider to proofread this document, occasional misspellings and typographical errors may still be present Due to the previous pandemic, and the use of personal protective equipment (PPE) This may decrease voice recognition accuracy Inadvertent hot bread baker errors may occur 08/20/2024 Dietary counseling and surveillance (ICD-10 - Z71.3) Acute Concerns/Problem List: 08/20/2024 Labs reviewed and stable Stable on 15 mg of Zepbound Goal is to have BMI under 45 so she can get a left total knee replacement, recently got steroid injections with [facility] Sleep study later in the summer [...] software and direct typing Please excuse inadvertent hot bread baker or typing errors, or uncorrected word substitutions Although every attempt has been made by the provider to proofread this document, occasional misspellings and typographical errors may still be present Due to the previous pandemic, and the use of personal protective equipment (PPE) This may decrease voice recognition accuracy Inadvertent hot bread baker errors may occur 06/22/2024 Type 2 diabetes [...] software and direct typing Please excuse inadvertent hot bread baker or typing errors, or uncorrected word substitutions Although every attempt has been made by the provider to proofread this document, occasional misspellings and typographical errors may still be present Due to the previous pandemic, and the use of personal protective equipment (PPE) This may decrease voice recognition accuracy Inadvertent hot bread baker errors may occur 10/01/2024 Dietary counseling and surveillance (ICD-10 - Z71.3) #Weight Management 10/01/2024 Stable on 15 mg of Zepbound Goal is to have BMI under 45 so she can get a left total knee replacement, recently got steroid injections with [facility] She is euthyroid chemically Scheduled for [...] software and direct typing Please excuse inadvertent hot bread baker or typing errors, or uncorrected word substitutions Although every attempt has been made by the provider to proofread this document, occasional misspellings and typographical errors may still be present Due to the previous pandemic, and the use of personal protective equipment (PPE) This may decrease voice recognition accuracy Inadvertent hot bread baker errors may occur 12/18/2023 Dietary counseling and surveillance (ICD-10 - Z71.3) #Weight Management 12/18/2023 Labs reviewed from September 2023 thriving Given ongoing weight loss this may be a recurrent problem until her weight stabilizes 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 or [...] minimum of 6 months The most recent [place] [employer] of clinical endocrinologists and [place] [employer] endocrin[employer] guidelines recommend patients who [...] software and direct typing Please excuse inadvertent hot bread baker or typing errors, or uncorrected word substitutions Although every attempt has been made by the provider to proofread this document, occasional misspellings and typographical errors may still be present Due to the previous pandemic, and the use of personal protective equipment (PPE) This may decrease voice recognition accuracy Inadvertent hot bread baker errors may occur 12/18/2023 Type 2 diabetes mellitus without complication, without long-term current use of insulin (ICD-10 - E11.9) #Weight Management 12/18/2023 Labs reviewed from September 2023 thriving Given ongoing weight loss this may be a recurrent problem until her weight stabilizes 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 or [...] minimum of 6 months The most recent [place] [employer] of clinical endocrinologists and [employer] endocrinology guidelines recommend patients who [...] software and direct typing Please excuse inadvertent hot bread baker or typing errors, or uncorrected word substitutions Although every attempt has been made by the provider to proofread this document, occasional misspellings and typographical errors may still be present Due to the previous pandemic, and the use of personal protective equipment (PPE) This may decrease voice recognition accuracy Inadvertent hot bread baker errors may occur 10/01/2024 Type 2 diabetes mellitus without complication, without long-term current use of insulin (ICD-10 - E11.9) #Weight Management 10/01/2024 Stable on 15 mg of Zepbound Goal is to have BMI under 45 so she can get a left total knee replacement, recently got steroid injections with [facility] She is euthyroid chemically Scheduled for [...] software and direct typing Please excuse inadvertent hot bread baker or typing errors, or uncorrected word substitutions Although every attempt has been made by the provider to proofread this document, occasional misspellings and typographical errors may still be present Due to the previous pandemic, and the use of personal protective equipment (PPE) This may decrease voice recognition accuracy Inadvertent hot bread baker errors may occur 08/20/2024 Type 2 diabetes mellitus without complication, without long-term current use of insulin (ICD-10 - E11.9) Acute Concerns/Problem List: 08/20/2024 Labs reviewed and stable Stable on 15 mg of Zepbound Goal is to have BMI under 45 so she can get a left total knee replacement, recently got steroid injections with [facility] Sleep study later in the summer [...] software and direct typing Please excuse inadvertent hot bread baker or typing errors, or uncorrected word substitutions Although every attempt has been made by the provider to proofread this document, occasional misspellings and typographical errors may still be present Due to the previous pandemic, and the use of personal protective equipment (PPE) This may decrease voice recognition accuracy Inadvertent hot bread baker errors may occur 06/22/2024 Graves disease (ICD-10 [...] software and direct typing Please excuse inadvertent hot bread baker or typing errors, or uncorrected word substitutions Although every attempt has been made by the provider to proofread this document, occasional misspellings and typographical errors may still be present Due to the previous pandemic, and the use of personal protective equipment (PPE) This may decrease voice recognition accuracy Inadvertent hot bread baker errors may occur 05/05/2024 Type 2 diabetes [...] software and direct typing Please excuse inadvertent hot bread baker or typing errors, or uncorrected word substitutions Although every attempt has been made by the provider to proofread this document, occasional misspellings and typographical errors may still be present Due to the previous pandemic, and the use of personal protective equipment (PPE) This may decrease voice recognition accuracy Inadvertent hot bread baker errors may occur 03/17/2024 Type 2 diabetes [...] minimum of 6 months The most recent [place] [employer]ocrinologists and [employer] guidelines recommend patients who [...] software and direct typing Please excuse inadvertent hot bread baker or typing errors, or uncorrected word substitutions Although every attempt has been made by the provider to proofread this document, occasional misspellings and typographical errors may still be present Due to the previous pandemic, and the use of personal protective equipment (PPE) This may decrease voice recognition accuracy Inadvertent hot bread baker errors may occur 03/17/2024 Graves disease (ICD-10 [...] minimum of 6 months The most recent [place] [employer]ocrinologists and [employer] guidelines recommend patients who [...] software and direct typing Please excuse inadvertent hot bread baker or typing errors, or uncorrected word substitutions Although every attempt has been made by the provider to proofread this document, occasional misspellings and typographical errors may still be present Due to the previous pandemic, and the use of personal protective equipment (PPE) This may decrease voice recognition accuracy Inadvertent hot bread baker errors may occur 05/05/2024 Graves disease (ICD-10 [...] software and direct typing Please excuse inadvertent hot bread baker or typing errors, or uncorrected word substitutions Although every attempt has been made by the provider to proofread this document, occasional misspellings and typographical errors may still be present Due to the previous pandemic, and the use of personal protective equipment (PPE) This may decrease voice recognition accuracy Inadvertent hot bread baker errors may occur 06/22/2024 Chronic anticoagulation (ICD-10 [...] software and direct typing Please excuse inadvertent hot bread baker or typing errors, or uncorrected word substitutions Although every attempt has been made by the provider to proofread this document, occasional misspellings and typographical errors may still be present Due to the previous pandemic, and the use of personal protective equipment (PPE) This may decrease voice recognition accuracy Inadvertent hot bread baker errors may occur 08/20/2024 Graves disease (ICD-10 - E05.00) Acute Concerns/Problem List: 08/20/2024 Labs reviewed and stable Stable on 15 mg of Zepbound Goal is to have BMI under 45 so she can get a left total knee replacement, recently got steroid injections with [facility] Sleep study later in the summer [...] software and direct typing Please excuse inadvertent hot bread baker or typing errors, or uncorrected word substitutions Although every attempt has been made by the provider to proofread this document, occasional misspellings and typographical errors may still be present Due to the previous pandemic, and the use of personal protective equipment (PPE) This may decrease voice recognition accuracy Inadvertent hot bread baker errors may occur 10/01/2024 Graves disease (ICD-10 - E05.00) #Weight Management 10/01/2024 Stable on 15 mg of Zepbound Goal is to have BMI under 45 so she can get a left total knee replacement, recently got steroid injections with [facility] She is euthyroid chemically Scheduled for [...] software and direct typing Please excuse inadvertent hot bread baker or typing errors, or uncorrected word substitutions Although every attempt has been made by the provider to proofread this document, occasional misspellings and typographical errors may still be present Due to the previous pandemic, and the use of personal protective equipment (PPE) This may decrease voice recognition accuracy Inadvertent hot bread baker errors may occur 12/18/2023 Graves disease (ICD-10 - E05.00) #Weight Management 12/18/2023 Labs reviewed from September 2023 thriving Given ongoing weight loss this may be a recurrent problem until her weight stabilizes 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 or [...] minimum of 6 months The most recent [place] [employer]ocrinologists and [employer] guidelines recommend patients who [...] software and direct typing Please excuse inadvertent hot bread baker or typing errors, or uncorrected word substitutions Although every attempt has been made by the provider to proofread this document, occasional misspellings and typographical errors may still be present Due to the previous pandemic, and the use of personal protective equipment (PPE) This may decrease voice recognition accuracy Inadvertent hot bread baker errors may occur 12/18/2023 Chronic anticoagulation (ICD-10 - Z79.01) #Weight Management 12/18/2023 Labs reviewed from September 2023 thriving Given ongoing weight loss this may be a recurrent problem until her weight stabilizes 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 or [...] minimum of 6 months The most recent [place] [employer]ocrinologists and [employer] guidelines recommend patients who [...] software and direct typing Please excuse inadvertent hot bread baker or typing errors, or uncorrected word substitutions Although every attempt has been made by the provider to proofread this document, occasional misspellings and typographical errors may still be present Due to the previous pandemic, and the use of personal protective equipment (PPE) This may decrease voice recognition accuracy Inadvertent hot bread baker errors may occur 10/01/2024 Chronic anticoagulation (ICD-10 - Z79.01) #Weight Management 10/01/2024 Stable on 15 mg of Zepbound Goal is to have BMI under 45 so she can get a left total knee replacement, recently got steroid injections with [facility] She is euthyroid chemically Scheduled for [...] software and direct typing Please excuse inadvertent hot bread baker or typing errors, or uncorrected word substitutions Although every attempt has been made by the provider to proofread this document, occasional misspellings and typographical errors may still be present Due to the previous pandemic, and the use of personal protective equipment (PPE) This may decrease voice recognition accuracy Inadvertent hot bread baker errors may occur 08/20/2024 Chronic anticoagulation (ICD-10 - Z79.01) Acute Concerns/Problem List: 08/20/2024 Labs reviewed and stable Stable on 15 mg of Zepbound Goal is to have BMI under 45 so she can get a left total knee replacement, recently got steroid injections with [facility] Sleep study later in the summer [...] software and direct typing Please excuse inadvertent hot bread baker or typing errors, or uncorrected word substitutions Although every attempt has been made by the provider to proofread this document, occasional misspellings and typographical errors may still be present Due to the previous pandemic, and the use of personal protective equipment (PPE) This may decrease voice recognition accuracy Inadvertent hot bread baker errors may occur 06/22/2024 PAF (paroxysmal atrial [...] software and direct typing Please excuse inadvertent hot bread baker or typing errors, or uncorrected word substitutions Although every attempt has been made by the provider to proofread this document, occasional misspellings and typographical errors may still be present Due to the previous pandemic, and the use of personal protective equipment (PPE) This may decrease voice recognition accuracy Inadvertent hot bread baker errors may occur 05/05/2024 Chronic anticoagulation (ICD-10 [...] software and direct typing Please excuse inadvertent hot bread baker or typing errors, or uncorrected word substitutions Although every attempt has been made by the provider to proofread this document, occasional misspellings and typographical errors may still be present Due to the previous pandemic, and the use of personal protective equipment (PPE) This may decrease voice recognition accuracy Inadvertent hot bread baker errors may occur 03/17/2024 Chronic anticoagulation (ICD-10 [...] minimum of 6 months The most recent [place] [employer] clinical endocrinologists and [employer] guidelines recommend patients who [...] software and direct typing Please excuse inadvertent hot bread baker or typing errors, or uncorrected word substitutions Although every attempt has been made by the provider to proofread this document, occasional misspellings and typographical errors may still be present Due to the previous pandemic, and the use of personal protective equipment (PPE) This may decrease voice recognition accuracy Inadvertent hot bread baker errors may occur 03/17/2024 PAF (paroxysmal atrial [...] minimum of 6 months The most recent [place] [employer] endocrinologists and [employer] guidelines recommend patients who [...] software and direct typing Please excuse inadvertent hot bread baker or typing errors, or uncorrected word substitutions Although every attempt has been made by the provider to proofread this document, occasional misspellings and typographical errors may still be present Due to the previous pandemic, and the use of personal protective equipment (PPE) This may decrease voice recognition accuracy Inadvertent hot bread baker errors may occur 05/05/2024 PAF (paroxysmal atrial [...] software and direct typing Please excuse inadvertent hot bread baker or typing errors, or uncorrected word substitutions Although every attempt has been made by the provider to proofread this document, occasional misspellings and typographical errors may still be present Due to the previous pandemic, and the use of personal protective equipment (PPE) This may decrease voice recognition accuracy Inadvertent hot bread baker errors may occur 06/22/2024 NICHOLE (obstructive sleep [...] software and direct typing Please excuse inadvertent hot bread baker or typing errors, or uncorrected word substitutions Although every attempt has been made by the provider to proofread this document, occasional misspellings and typographical errors may still be present Due to the previous pandemic, and the use of personal protective equipment (PPE) This may decrease voice recognition accuracy Inadvertent hot bread baker errors may occur 10/01/2024 PAF (paroxysmal atrial fibrillation) (ICD-10 - I48.0) #Weight Management 10/01/2024 Stable on 15 mg of Zepbound Goal is to have BMI under 45 so she can get a left total knee replacement, recently got steroid injections with [facility] She is euthyroid chemically Scheduled for [...] software and direct typing Please excuse inadvertent hot bread baker or typing errors, or uncorrected word substitutions Although every attempt has been made by the provider to proofread this document, occasional misspellings and typographical errors may still be present Due to the previous pandemic, and the use of personal protective equipment (PPE) This may decrease voice recognition accuracy Inadvertent hot bread baker errors may occur 08/20/2024 PAF (paroxysmal atrial fibrillation) (ICD-10 - I48.0) Acute Concerns/Problem List: 08/20/2024 Labs reviewed and stable Stable on 15 mg of Zepbound Goal is to have BMI under 45 so she can get a left total knee replacement, recently got steroid injections with [facility] Sleep study later in the summer [...] software and direct typing Please excuse inadvertent hot bread baker or typing errors, or uncorrected word substitutions Although every attempt has been made by the provider to proofread this document, occasional misspellings and typographical errors may still be present Due to the previous pandemic, and the use of personal protective equipment (PPE) This may decrease voice recognition accuracy Inadvertent hot bread baker errors may occur 12/18/2023 PAF (paroxysmal atrial fibrillation) (ICD-10 - I48.0) #Weight Management 12/18/2023 Labs reviewed from September 2023 thriving Given ongoing weight loss this may be a recurrent problem until her weight stabilizes 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 or [...] minimum of 6 months The most recent [place] [employer] of clinical endocrinologists and [employer]in[employer] guidelines recommend patients who [...] software and direct typing Please excuse inadvertent hot bread baker or typing errors, or uncorrected word substitutions Although every attempt has been made by the provider to proofread this document, occasional misspellings and typographical errors may still be present Due to the previous pandemic, and the use of personal protective equipment (PPE) This may decrease voice recognition accuracy Inadvertent hot bread baker errors may occur 12/18/2023 NICHOLE (obstructive sleep apnea) (ICD-10 - G47.33) #Weight Management 12/18/2023 Labs reviewed from September 2023 thriving Given ongoing weight loss this may be a recurrent problem until her weight stabilizes 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 or [...] minimum of 6 months The most recent [place] [employer] of clinical endocrinologists and [employer]in[employer] guidelines recommend patients who [...] software and direct typing Please excuse inadvertent hot bread baker or typing errors, or uncorrected word substitutions Although every attempt has been made by the provider to proofread this document, occasional misspellings and typographical errors may still be present Due to the previous pandemic, and the use of personal protective equipment (PPE) This may decrease voice recognition accuracy Inadvertent hot bread baker errors may occur 08/20/2024 NICHOLE (obstructive sleep apnea) (ICD-10 - G47.33) Acute Concerns/Problem List: 08/20/2024 Labs reviewed and stable Stable on 15 mg of Zepbound Goal is to have BMI under 45 so she can get a left total knee replacement, recently got steroid injections with [facility] Sleep study later in the summer [...] software and direct typing Please excuse inadvertent hot bread baker or typing errors, or uncorrected word substitutions Although every attempt has been made by the provider to proofread this document, occasional misspellings and typographical errors may still be present Due to the previous pandemic, and the use of personal protective equipment (PPE) This may decrease voice recognition accuracy Inadvertent hot bread baker errors may occur 10/01/2024 NICHOLE (obstructive sleep apnea) (ICD-10 - G47.33) #Weight Management 10/01/2024 Stable on 15 mg of Zepbound Goal is to have BMI under 45 so she can get a left total knee replacement, recently got steroid injections with [facility] She is euthyroid chemically Scheduled for [...] software and direct typing Please excuse inadvertent hot bread baker or typing errors, or uncorrected word substitutions Although every attempt has been made by the provider to proofread this document, occasional misspellings and typographical errors may still be present Due to the previous pandemic, and the use of personal protective equipment (PPE) This may decrease voice recognition accuracy Inadvertent hot bread baker errors may occur 06/22/2024 Sensorineural hearing loss [...] software and direct typing Please excuse inadvertent hot bread baker or typing errors, or uncorrected word substitutions Although every attempt has been made by the provider to proofread this document, occasional misspellings and typographical errors may still be present Due to the previous pandemic, and the use of personal protective equipment (PPE) This may decrease voice recognition accuracy Inadvertent hot bread baker errors may occur 05/05/2024 NICHOLE (obstructive sleep [...] software and direct typing Please excuse inadvertent hot bread baker or typing errors, or uncorrected word substitutions Although every attempt has been made by the provider to proofread this document, occasional misspellings and typographical errors may still be present Due to the previous pandemic, and the use of personal protective equipment (PPE) This may decrease voice recognition accuracy Inadvertent hot bread baker errors may occur 03/17/2024 NICHOLE (obstructive sleep [...] minimum of 6 months The most recent [place] [employer] of clinical endocrinologists and [employer]in[employer] guidelines recommend patients who [...] software and direct typing Please excuse inadvertent hot bread baker or typing errors, or uncorrected word substitutions Although every attempt has been made by the provider to proofread this document, occasional misspellings and typographical errors may still be present Due to the previous pandemic, and the use of personal protective equipment (PPE) This may decrease voice recognition accuracy Inadvertent hot bread baker errors may occur 08/20/2024 Sensorineural hearing loss (SNHL) of both ears (ICD-10 - H90.3) Acute Concerns/Problem List: 08/20/2024 Labs reviewed and stable Stable on 15 mg of Zepbound Goal is to have BMI under 45 so she can get a left total knee replacement, recently got steroid injections with [facility] Sleep study later in the summer [...] software and direct typing Please excuse inadvertent hot bread baker or typing errors, or uncorrected word substitutions Although every attempt has been made by the provider to proofread this document, occasional misspellings and typographical errors may still be present Due to the previous pandemic, and the use of personal protective equipment (PPE) This may decrease voice recognition accuracy Inadvertent hot bread baker errors may occur 10/01/2024 Sensorineural hearing loss (SNHL) of both ears (ICD-10 - H90.3) #Weight Management 10/01/2024 Stable on 15 mg of Zepbound Goal is to have BMI under 45 so she can get a left total knee replacement, recently got steroid injections with [facility] She is euthyroid chemically Scheduled for [...] software and direct typing Please excuse inadvertent hot bread baker or typing errors, or uncorrected word substitutions Although every attempt has been made by the provider to proofread this document, occasional misspellings and typographical errors may still be present Due to the previous pandemic, and the use of personal protective equipment (PPE) This may decrease voice recognition accuracy Inadvertent hot bread baker errors may occur 10/01/2024 Encounter for examination of blood pressure without abnormal findings (ICD-10 - Z01.30) #Weight Management 10/01/2024 Stable on 15 mg of Zepbound Goal is to have BMI under 45 so she can get a left total knee replacement, recently got steroid injections with [facility] She is euthyroid chemically Scheduled for [...] software and direct typing Please excuse inadvertent hot bread baker or typing errors, or uncorrected word substitutions Although every attempt has been made by the provider to proofread this document, occasional misspellings and typographical errors may still be present Due to the previous pandemic, and the use of personal protective equipment (PPE) This may decrease voice recognition accuracy Inadvertent hot bread baker errors may occur 08/20/2024 Encounter for examination of blood pressure without abnormal findings (ICD-10 - Z01.30) Acute Concerns/Problem List: 08/20/2024 Labs reviewed and stable Stable on 15 mg of Zepbound Goal is to have BMI under 45 so she can get a left total knee replacement, recently got steroid injections with [facility] Sleep study later in the summer [...] software and direct typing Please excuse inadvertent hot bread baker or typing errors, or uncorrected word substitutions Although every attempt has been made by the provider to proofread this document, occasional misspellings and typographical errors may still be present Due to the previous pandemic, and the use of personal protective equipment (PPE) This may decrease voice recognition accuracy Inadvertent hot bread baker errors may occur Plan Of Treatment Pending Test Test Name Order Date Bone Density 05/05/2024 Next Appt Details Provider Name:MADDIE REYES, 11/19/2024 10:00:00 AM, [address] [facility], [facility], [place], [address], Insurance Providers Payer Name Payer Address Payer Phone Subscriber Number Group Number Insured Name Patient Relationship to Insured Coverage Start Date Coverage End Date [facility] [address] [place] [address] [phone] [id number] Corazon Cortez Self - patient is the insured Medical (General) History Medical History History ICD Code diabetes mellitus graves disease afib gastroesophageal reflux disease (GERD) hyperlipidemia asthma sleep apnea Surgical History Surgery Date(Month/Year) cholecystectomy umbilical hernia repair arthroscopic knee surgery left partial hysterectomy Hospitalization History Reason Date(Month/Year) cardioversion x 3 episodes (01/2022, 2020, 09/2019)
--- OUTSIDE RECORDS SUMMARY | 2024-11-10 13:37 | XMS_ITS | Clinical Summary ---
Author Organization [facility] Address [address] [place] [id number] Phone Care Team Providers Care Batteryman Name Role Phone Blaire Estrada [employer] Primary Care Provider [phone] Surgical History Surgery Date Site/Laterality Comments CHOLECYSTECTOMY 1993 PROCEDURE: HISTORICAL CHOLECYSTECTOMY OTHER SURGICAL HISTORY 2001 PROCEDURE: [place] LAPAROSCOPY SALPINGOSTOMY; COMMENT: left TONSILLECTOMY 1995 PROCEDURE: [...] probability of hip fracture of 0.0%. Code 78591 -------- FINAL REPORT -------- Dictated By: Rah Chamberlain Dictated Date: 05/20/2024 08:31 ET Assigned Physician: Rah Chamberlain Reviewed and Electronically Signed By: Rah Chamberlain Signed Date: 05/20/2024 08:32 ET Workstation ID: [id number] Transcribed By: Self Edit Transcribed Date: 05/20/2024 [...] density of the femurs bilaterally is 1.258 gm/fb1yxarj is 125% of that of young normals [...] probability of hip fracture of 0.0%. Code 98737 -------- FINAL REPORT -------- Dictated By: Rah Chamberlain Dictated Date: 05/20/2024 08:31 ET Assigned Physician: Rah Chamberlain Reviewed and Electronically Signed By: Rah Chamberlain Signed Date: 05/20/2024 08:32 ET Workstation ID: [id number] Transcribed By: Self Edit Transcribed Date: 05/20/2024 08:31 ET Blaire Estrada NP IMG DXA PROCEDURES Final Resu lt from Last 3 Months or Most Recently Relevant to Health Maintenance Insurance [facility] Care Teams Batteryman Relationship Specialty Start Date End Date Blaire Estrada NP [address] [id number] PCP - General Nurse Practitioner 05/20/24
--- OUTSIDE RECORDS SUMMARY | 2024-11-10 13:37 | XMS_ITS | Patient Health Record ---
[facility] Address [address] [facility] [place] [address] Care Team Providers Care Carpenter Form Name Role Phone Sean MCKEE, Blaire Primary Care Provider Lily Corral Unavailable [phone] Allergies Allergen (clinical drug ingredient) Drug/Non Drug [...] Problem Acquired hammer toe of right foot (5384079046579550 ) Other hammer toe(s) (acquired), right foot (M20.41) Active confirmed Problem Acquired hammer toe of left foot (0106158101457320 ) Other hammer toe(s) (acquired), left foot (M20.42) Active confirmed Problem Acquired hammer toe of left foot (8469874126097875 ) Hammer toe of left foot (M20.42) Active confirmed Problem Polyneuropathy due to type 2 diabetes mellitus (740622976) Type 2 diabetes mellitus with polyneuropathy (E11.42) Active confirmed Problem Plantar fascial fibromatosis (17270896) Plantar fasciitis, bilateral (M72.2) Active confirmed Vital Signs Blood pressure diastolic 65 mm Hg 10/22/2024 Height 5ft 6in in 10/22/2024 Blood pressure systolic 120 mm Hg 10/22/2024 Weight 292 lbs 10/22/2024 BMI 47.12 kg/m2 10/22/2024 Encounters Encounter Location Date Provider Diagnosis [address] [address] 11/14/2023 Lily Toledo Type 2 diabetes mellitus with polyneuropathy E11.42 and Tinea pedis B35.[address] [address] 01/27/2024 Lily Toledo Type 2 diabetes mellitus with polyneuropathy E11.[address] [address] 05/20/2024 Lily Toledo Type 2 diabetes mellitus [...] M60.872 and Bursitis of left foot M77.[address] [address] 07/30/2024 Lily Toledo Type 2 diabetes mellitus [...] and Tinea pedis of both feet B35.[address] [address] 10/22/2024 Lily Toledo Plantar fasciitis, bilateral M72.2 ; Tinea pedis of both feet B35.3 and Type 2 diabetes mellitus with polyneuropathy E11.[address] [address] 05/21/2024 Lily Toledo [facility] [address] [address] 08/04/2024 Lily Toledo Assessments Encounter Date Diagnosis [...] E11.42) 11/14/2023 Tinea pedis (ICD-10 - B35.3) 05/20/2024 [...] Provider Name:Lily freeman, 12/28/2024 03:00:00 PM, [address] [facility], [place], [address], Insurance Providers Payer Name Payer Address Payer Phone Subscriber Number Group Number Insured Name Patient Relationship to Insured Coverage Start Date Coverage End Date [facility] [id number] [place] [address] [phone] [id number] Corazon Cortez Self - patient is the [...]
== END 2024-11-10 10:44 | disposition home or self-care (01) ==
LOC: HO.LNP 10:43
PROVIDERS: Visit Provider Advanced Practice Midwife
DX: L29.2 Pruritus vulvae (principal)
CPT/HCPCS: 88305

== ENCOUNTER 2024-11-23 10:40 | Outpatient (AMB) | payer BC, SELFPAY ==
--- OUTSIDE RECORDS SUMMARY | 2024-04-09 05:30 | XMS_ITS ---
Author Organization [facility] Address [address] [place] [address] Care Team Providers Care Ripsaw Grader Name Role Phone Sean MCKEE, Blaire Primary Care Provider Lily Corral [phone] Ma Encounters Encounter Location Date Provider Diagnosis [address] [address] 04/09/2024 Lily Toledo Plan Of Treatment Next Appt Details Provider Name:Lily freeman, 12/28/2024 03:00:00 PM, [address] [place], [address], Progress Notes * Ran BRISENOVladOB: [birth year] (54 yo F)Acc No.[id number]:04/09/2024 Progress Note Patient: Corazon CORDOVA Provider: Ramón Toledo DPM :1970 A ge:53 Y S ex:Female Date:04/09/2024 Address:[address] [place] Pcp:Blaire Estrada NP Subjective: * Chief Complaints: [...] 04/09/2024 Generated for Jeri Dowd/Ralph on: 0 11/23/2024 11:58 AM EDT
--- OUTSIDE RECORDS SUMMARY | 2024-04-16 08:45 | XMS_ITS ---
Author Organization [facility] Address [address] [facility] [place] [address] Care Team Providers Care Roof Panel Hanger Name Role Phone Sean MCKEE, Blaire Primary Care Provider Lily Corral Unavailable [phone] Allergies Allergen (clinical drug ingredient) Drug/Non Drug [...] Active Encounters Encounter Location Date Provider Diagnosis [facility] [address] [address] 04/16/2024 Lily Toledo Plan Of Treatment Next Appt Details Provider Name:Lily freeman, 12/28/2024 03:00:00 PM, [address] [place] [address], [phone], Progress Notes * Lexi CORTEZOB: 9[birth year] (54 yo F)Acc No.[id number]:04/16/2024 Progress Note Patient: Corazon CORDOVA Provider: Ramón Toledo DPM :1970 A ge:53 Y S ex:Female Date:04/16/2024 Address:[address] [place], [place] [id number] Pcp:Blaire Estrada NP Subjective: * Chief Complaints: [...] 04/16/2024 Generated for Jeri hauser/Flores/Ralph on: 0 11/23/2024 11:58 AM EDT
--- OUTSIDE RECORDS SUMMARY | 2024-11-19 06:00 | XMS_ITS ---
Author Organization [facility] [address] Address [address] [place] [address] Care Team Providers Care Pediatric Nurse Name Role Phone MADDIE REYES Unavailable [phone] Allergies Allergen (clinical drug ingredient) Drug/Non Drug Allergy documented on EMR Reaction Allergy Type Onset Date Status ibuprofen Ibuprofen Blood thinner Drug Allergy Act indigo REASON FOR VISIT pt is here for wt mgt f/u with SECA scan ready for review Medications Medication SIG (Take, Route, Frequency, Duration) Notes Start Date End Date Status Flecainide Acetate 100 MG 0.5 tablet Ora l every 12 hrs; Duration: 90 days Active Atorvastatin Calcium 10 MG 1 tablet Oral Once a day; Duration: 90 days Active Eliquis 5 MG as directed Orally t wice a day; Duration: 90 days Active Omeprazole 20 MG 1 capsule 1/2 to 1 h our before morning meal Oral Once a day; Duration: 90 days Active Magnesium Oxide 400 MG Oral; Duration: 30 Days Active methIMAzole 5 MG 1 tablet Oral Once e very other day; Duration: 90 days Active Furosemide 20 MG Oral; Duration: 30 Days Active Vitamin B 12 500 MCG 1 tablet Orally Once a day Active Vitamin D (Cholecalciferol) 50 MCG (1999 UT) 1 capsule Orally Once a day Active dilTIAZem HCl ER Coated Beads 240 MG Oral; Duration: 30 Days Acti ve Contrave 8-90 MG Week 1, take 1 table t in the morning Week 2 take 1 tablet in the morning, 1 tablet in the evening Week 3 take 2 tablets in the morning, 1 tablet in the evening Week 4 onward 2 tablets in the morning, 2 tablets in the evening Orally twice a day; Duration: 30 days Active metFORMIN HCl ER 750 MG 1 tablet with ev ening meal Orally Once a day; Duration: 90 days Active Vitamin C Active Ondansetron 4 MG 1 tablet on the tong ue and allow to dissolve prn nausea/vomiting Orally Once a day; Duration: 90 days 08/20/2024 Active Mounjaro 15 MG/0.5ML 15mg Subcutaneous w albino; Duration: 30 days 03/10/2023 Active Social History Tobacco Use: Social History Observation Description Date Details (start date - stop date) Never Smoker NA - NA Tobacco Use/Smoking Question Answer Notes Are you a nonsmoker Vital Signs Heart Rate 82 /min 11/19/2024 Blood pressure systolic 130 mm Hg 11/20/19 25 Blood pressure diastolic 60 mm Hg 025 Weight 303 lbs 11/19/2024 BMI 48.9 kg/m2 11/19/2024 Height 66 in 11/19/2024 Oximetry 97 % 11/19/2024 Encounters Encounter Location Date Provider Diagnosis [facility] [address] [id number] 11/19/2024 MADDIE REYES Morbid obesity E66.0 1 ; [...] of blood pressure without abnormal findings Z01.30 Assessments Encounter Date Diagnosis (ICD Code) Assessment Notes Treatment Notes Treatment Clinical Notes Section Notes 11/19/2024 Morbid obesity (ICD-10 - E66.01) #Weight Management 11/19/2024 Discussed proper sleep hygiene Stable on 15 mg of Zepbound Continue Contrave maximum dosing Goal is to have BMI under 45 so she can get a left total knee replacement, recently got steroid injections with [facility] She is euthyroid chemically Scheduled for updated sleep study In lab, November 2024 She is also working with orthopedic surgery, [...] software and direct typing Please excuse inadvertent high risk case manager or typing errors, or uncorrected word substitutions Although every attempt has been made by the provider to proofread this document, occasional misspellings and typographical errors may still be present Due to the previous pandemic, and the use of personal protective equipment (PPE) This may decrease voice recognition accuracy Inadvertent high risk case manager errors may occur 11/19/2024 BMI 45.0-49.9, adult (ICD-10 - Z68.42) #Weight Management 11/19/2024 Discussed proper sleep hygiene Stable on 15 mg of Zepbound Continue Contrave maximum dosing Goal is to have BMI under 45 so she can get a left total knee replacement, recently got steroid injections with [facility] She is euthyroid chemically Scheduled for updated sleep study In lab, November 2024 She is also working with orthopedic surgery, [...] software and direct typing Please excuse inadvertent high risk case manager or typing errors, or uncorrected word substitutions Although every attempt has been made by the provider to proofread this document, occasional misspellings and typographical errors may still be present Due to the previous pandemic, and the use of personal protective equipment (PPE) This may decrease voice recognition accuracy Inadvertent high risk case manager errors may occur 11/19/2024 Dietary counseling and surveillance (ICD-10 - Z71.3) #Weight Management 11/19/2024 Discussed proper sleep hygiene Stable on 15 mg of Zepbound Continue Contrave maximum dosing Goal is to have BMI under 45 so she can get a left total knee replacement, recently got steroid injections with [facility] She is euthyroid chemically Scheduled for updated sleep study In lab, November 2024 She is also working with orthopedic surgery, [...] software and direct typing Please excuse inadvertent high risk case manager or typing errors, or uncorrected word substitutions Although every attempt has been made by the provider to proofread this document, occasional misspellings and typographical errors may still be present Due to the previous pandemic, and the use of personal protective equipment (PPE) This may decrease voice recognition accuracy Inadvertent high risk case manager errors may occur 11/19/2024 Type 2 diabetes mellitus without complication, without long-term current use of insulin (ICD-10 - E11.9) #Weight Management 11/19/2024 Discussed proper sleep hygiene Stable on 15 mg of Zepbound Continue Contrave maximum dosing Goal is to have BMI under 45 so she can get a left total knee replacement, recently got steroid injections with [facility] She is euthyroid chemically Scheduled for updated sleep study In lab, November 2024 She is also working with orthopedic surgery, [...] software and direct typing Please excuse inadvertent high risk case manager or typing errors, or uncorrected word substitutions Although every attempt has been made by the provider to proofread this document, occasional misspellings and typographical errors may still be present Due to the previous pandemic, and the use of personal protective equipment (PPE) This may decrease voice recognition accuracy Inadvertent high risk case manager errors may occur 11/19/2024 Graves disease (ICD-10 - E05.00) #Weight Management 11/19/2024 Discussed proper sleep hygiene Stable on 15 mg of Zepbound Continue Contrave maximum dosing Goal is to have BMI under 45 so she can get a left total knee replacement, recently got steroid injections with [facility] She is euthyroid chemically Scheduled for updated sleep study In lab, November 2024 She is also working with orthopedic surgery, [...] software and direct typing Please excuse inadvertent high risk case manager or typing errors, or uncorrected word substitutions Although every attempt has been made by the provider to proofread this document, occasional misspellings and typographical errors may still be present Due to the previous pandemic, and the use of personal protective equipment (PPE) This may decrease voice recognition accuracy Inadvertent high risk case manager errors may occur 11/19/2024 Chronic anticoagulation (ICD-10 - Z79.01) #Weight Management 11/19/2024 Discussed proper sleep hygiene Stable on 15 mg of Zepbound Continue Contrave maximum dosing Goal is to have BMI under 45 so she can get a left total knee replacement, recently got steroid injections with [facility] She is euthyroid chemically Scheduled for updated sleep study In lab, November 2024 She is also working with orthopedic surgery, [...] software and direct typing Please excuse inadvertent high risk case manager or typing errors, or uncorrected word substitutions Although every attempt has been made by the provider to proofread this document, occasional misspellings and typographical errors may still be present Due to the previous pandemic, and the use of personal protective equipment (PPE) This may decrease voice recognition accuracy Inadvertent high risk case manager errors may occur 11/19/2024 PAF (paroxysmal atrial fibrillation) (ICD-10 - I48.0) #Weight Management 11/19/2024 Discussed proper sleep hygiene Stable on 15 mg of Zepbound Continue Contrave maximum dosing Goal is to have BMI under 45 so she can get a left total knee replacement, recently got steroid injections with [facility] She is euthyroid chemically Scheduled for updated sleep study In labNovember 2024 She is also working with orthopedic surgery, [...] software and direct typing Please excuse inadvertent high risk case manager or typing errors, or uncorrected word substitutions Although every attempt has been made by the provider to proofread this document, occasional misspellings and typographical errors may still be present Due to the previous pandemic, and the use of personal protective equipment (PPE) This may decrease voice recognition accuracy Inadvertent high risk case manager errors may occur 11/19/2024 NICHOLE (obstructive sleep apnea) (ICD-10 - G47.33) #Weight Management 11/19/2024 Discussed proper sleep hygiene Stable on 15 mg of Zepbound Continue Contrave maximum dosing Goal is to have BMI under 45 so she can get a left total knee replacement, recently got steroid injections with [facility] She is euthyroid chemically Scheduled for updated sleep study In labNovember 2024 She is also working with orthopedic surgery, [...] software and direct typing Please excuse inadvertent high risk case manager or typing errors, or uncorrected word substitutions Although every attempt has been made by the provider to proofread this document, occasional misspellings and typographical errors may still be present Due to the previous pandemic, and the use of personal protective equipment (PPE) This may decrease voice recognition accuracy Inadvertent high risk case manager errors may occur 11/19/2024 Sensorineural hearing loss (SNHL) of both ears (ICD-10 - H90.3) #Weight Management 11/19/2024 Discussed proper sleep hygiene Stable on 15 mg of Zepbound Continue Contrave maximum dosing Goal is to have BMI under 45 so she can get a left total knee replacement, recently got steroid injections with [facility] She is euthyroid chemically Scheduled for updated sleep study In labNovember 2024 She is also working with orthopedic surgery, [...] software and direct typing Please excuse inadvertent high risk case manager or typing errors, or uncorrected word substitutions Although every attempt has been made by the provider to proofread this document, occasional misspellings and typographical errors may still be present Due to the previous pandemic, and the use of personal protective equipment (PPE) This may decrease voice recognition accuracy Inadvertent high risk case manager errors may occur 11/19/2024 Encounter for examination of blood pressure without abnormal findings (ICD-10 - Z01.30) #Weight Management 11/19/2024 Discussed proper sleep hygiene Stable on 15 mg of Zepbound Continue Contrave maximum dosing Goal is to have BMI under 45 so she can get a left total knee replacement, recently got steroid injections with [facility] She is euthyroid chemically Scheduled for updated sleep study In labNovember 2024 She is also working with orthopedic surgery, [...] software and direct typing Please excuse inadvertent high risk case manager or typing errors, or uncorrected word substitutions Although every attempt has been made by the provider to proofread this document, occasional misspellings and typographical errors may still be present Due to the previous pandemic, and the use of personal protective equipment (PPE) This may decrease voice recognition accuracy Inadvertent high risk case manager errors may occur Plan Of Treatment Next Appt Details Provider Name:MADDIE REYES, 12/28/2024 10:00:00 AM, [address] [place] [address], [facility], [place], [address], Progress Notes * Lexi CORTEZOB: [birth year] (54 yo F)Acc No.[id number]:11/19/2024 Patient: Corazon CORDOVA Provider: Wellington REYES NP :[id number] A ge:54 Y S ex:Female Date:11/19/2024 Address:[address] [place], [place] [id number] Subjective: * Chief Complaints: * 1 . pt is here for wt mgt f/u with SECA scan ready for review. * HPI: C onstitutional: Patient is here today for wgt mgt followup Patient seen and examined. Full past medical history, social history, family history, allergies and current medications were reviewed and updated. 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 2pills in the morning and 2 pills at night. No s/e. A lot of food noise and moderate appetite suppression due to stress and work Complaining of bilateral diminished hearing, needs hearing aids, costly 6k hx of Graves Disease/Hyperthyrpidism She remains also on methimazole ENDO/Karoscani has done well on dual incretins Tolerating well. No SEs much increased appetite suppression A1C 5.5% Significant improvement in glycemic index DM Optho exam, 09/2024 Scheduled for right TKR, however, orthopedics want her BMI <45 Currently not on an exercise regimen, because of knee pain and restriction Had Echo done. Her twin has a history of cardiomyopathy and sarcoid paroxysmal atrial flutter, on chronic anticoagulation Was scheduled for ablation in the near future with physical fitness trainer JOSHUA (Billy), next appointment in January. 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 * ROS: A ll Other Systems: Review of Systems (ROS) A ll others negative except those mentioned in HPI. * Medical History: D iabetes mellitus, Graves disease, Afib, gastroesophageal reflux disease (GERD), Hyperlipidemia, Asthma, Sleep apnea. * Surgical History: c holecystectomy , umbilical hernia repair , arthroscopic knee surgery left , partial hysterectomy . * Hospitalization/Major Diagno stic Procedure: c ardioversion x 3 episodes (01/2022, 12/2020, 09/2019) . * Family History: F riend(s): , Diabetes Heart Disease, heart attack. F ather: , heart attack. M other: , Lung Cancer. 2 brother(s) . 1 daughter(s) - healthy. . both Brother afib, diabetes, htn, hx cardiac ablation. * Social History: T obacco Use: T obacco Use/Smoking A re you a n onsmoker. * Medications: T aking metFORMIN HCl ER 750 MG Tablet Extended Release [...] , Taking Vitamin D (Cholecalciferol) 50 MCG (1999 UT) Capsule 1 capsule Orally Once a day , Taking Vitamin B 12 500 MCG Tablet 1 tablet Orally Once a day , Taking dilTIAZem HCl ER Coated Beads 240 MG Capsule Extended Release 24 Hour Oral , Taking Furosemide 20 MG Tablet Oral , Taking methIMAzole 5 MG Tablet 1 tablet Oral Once every other day , Taking Magnesium Oxide 400 MG Tablet Oral , Taking Omeprazole 20 MG Capsule Delayed Release 1 capsule 1/2 to 1 hour before morning meal Oral Once a day , Taking Atorvastatin Calcium 10 MG Tablet 1 tablet Oral Once a day , Taking Flecainide Acetate 100 MG Tablet 0.5 tablet Oral every 12 hrs , Taking Eliquis 5 MG Tablet as directed Orally twice a day , Taking Ondansetron 4 MG Tablet Disintegrating 1 tablet on the tongue and allow to dissolve prn nausea/vomiting Orally Once a day , Medication List reviewed and reconciled with the patient * Allergies: I buprofen: Blood thinner - Contraindication. Objective: * Vitals: H R:82/min, BP:130/60mm Hg, Wt:303lbs, BMI:48.9Index, Ht: 66 in, Oxygen sat %:97%. * Examination: G eneral Examination: GENERAL APPEARANCE: i n no acute distress, well developed, well nourished. H EAD: n ormocephalic, atraumatic. E YES: p upils equal, round, reactive to light and accommodation. E ARS: n ormal. O RAL CAVITY: m ucosa moist. T HROAT: c lear. N NADINE/THYROID: n nadine supple, full range of motion, no cervical lymphadenopathy. S KIN: n o suspicious lesions, warm and dry. H EART: n o murmurs, regular rate and rhythm, S1, S2 normal. L UNGS: c lear to auscultation bilaterally. A BDOMEN: n ormal, bowel sounds present, soft, nontender, nondistended. E XTREMITIES: n o clubbing, cyanosis, or edema. N EUROLOGIC: n onfocal, motor strength normal upper and lower extremities, sensory exam intact. Assessment: * Assessment: 1. M orbid obesity - E66.01 2 . B ID 45.0-49.9, adult - Z68.42 ?3. D ietary counseling and surveillance - Z71.3 4 . T ype 2 diabetes mellitus without complication, without long-term current use of insulin - E11.9 5 . Graves disease - E05.00 6 . C hronic anticoagulation - Z79.01 ?7. P AF (paroxysmal atrial fibrillation) - I48.0 8 . O SA (obstructive sleep apnea) - G47.33 9 . S ensorineural hearing loss (SNHL) of both ears - H90.3 10. E ncounter for examination of blood pressure without abnormal findings - Z01.30 #Weight Management 11/19/2024 Discussed proper sleep hygiene Stable on 15 mg of Zepbound Continue Contrave maximum dosing Goal is to have BMI under 45 so she can get a left total knee replacement, recently got steroid injections with [facility] She is euthyroid chemically Scheduled for updated sleep study In lab, November 2024 She is also working with orthopedic surgery, [...] software and direct typing Please excuse inadvertent high risk case manager or typing errors, or uncorrected word substitutions Although every attempt has been made by the provider to proofread this document, occasional misspellings and typographical errors may still be present Due to the previous pandemic, and the use of personal protective equipment (PPE) This may decrease voice recognition accuracy Inadvertent high risk case manager errors may occur Plan: * Treatment: * Procedure Codes: 3 078F DIAST BP < 80 MM HG, 3075F SYST BP GE 130 - 139MM HG, G0447 FCE-FCE BEHAVRL CNSL OBESITY 15 MIN, Modifiers: 59 * Images: Billing Information: * Visit Code: 28912 Office Visit, Est Pt., Level 4. Modifiers: SA * Procedure Codes: 3078F DIAST BP < 80 MM HG. 3075F SYST BP GE 130 - 139MM HG. G0447 FCE-FCE BEHAVRL CNSL OBESITY 15 MIN. Modifiers: 59 * Sign off status: Completed true * Provider: Wellington REYES NP Date: 0 11/19/2024 Generated for Jeri hauser/Flores/Breannaitting on: 0 11/23/2024 11:58 AM EDT History and Physical Notes * HPI (History of Present Illness) Category Sub-Category Detail Notes Category Not es Constitutional Patient is here today for wgt mgt followup Patient seen and examined. Full past medical history, social history, family history, allergies and current medications were reviewed and updated. 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 2pills in the morning and 2 pills at night. No s/e. A lot of food noise and moderate appetite suppression due to stress and work Complaining of bilateral diminished hearing, needs hearing aids, costly 6k hx of Graves Disease/Hyperthyrpidism She remains also on methimazole ENDO/Karoscani has done well on dual incretins Tolerating well. No SEs much increased appetite suppression A1C 5.5% Significant improvement in glycemic index DM Optho exam, 09/2024 Scheduled for right TKR, however, orthopedics want her BMI <45 Currently not on an exercise regimen, because of knee pain and restriction Had Echo done. Her twin has a history of cardiomyopathy and sarcoid paroxysmal atrial flutter, on chronic anticoagulation Was scheduled for ablation in the near future with physical fitness trainer JOSHUA (Billy), next appointment in January. 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[employer], 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
[2024-11-23 10:47] VITALS: BMI 44.7
--- NOTE | 2024-11-23 10:47 | MHC.OFFVIS ---
Vital Signs 11/23/24 10:47 Height 5 ft 8 in Weight 294 lb BMI 44.7 Intake Visit Reasons: skin check/bx results Intake Note: evaluate vulvar skin and get to review skin biopsy results. 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: No Information Interpreted: non-clinical & clinical Director Of Operations Home Health: Director Of Operations Home Health Present ([place]) Accompanied by: Self / Same As Patient Allergies naproxen (From Aleve) Adverse Reaction (Verified 11/23/24 10:57) bleeding Medication List - Last Reconciled 11/23/24 by Ellen Villar LPN acetaminophen 1,000 mg PO BEDTIME acetaminophen 650 mg PO DAILY apixaban 5 mg PO BID ascorbic acid (vitamin C) (Vitamin C) 500 mg PO DAILY ascorbic acid (vitamin C) mg PO atorvastatin 10 mg PO DAILY betamethasone dipropionate 0.05% 1 appl topical DAILY cholecalciferol (vitamin D3) (Vitamin D3) 25 mcg PO DAILY diltiazem HCl CD 240 mg PO BEDTIME 90 days flecainide 150 mg (1.5 x 100 mg) PO BID 90 days furosemide 20 mg PO DAILY 90 days magnesium oxide 400 mg PO BID mecobalamin (vitamin B12) 1,000 mcg PO DAILY metformin 500mg AM, 1000mg PM metformin 500 mg PO DAILY methimazole 5 mg PO Q2D naltrexone-bupropion 8-90 mg (Contrave) 2 tabs PO BID omeprazole 20 mg PO DAILY ondansetron HCl 4 mg PO Q8H PNV 119-iron fum-folic acid 29 mg iron- 1 mg tabs PO tirzepatide (Mounjaro) 10 mg subcut QWEEK HPI Comments Details: Patient is here today for a follow up skin biopsy results and skin check. She is using betamethasone p.r.n. for short term use with relief of any itching. She feels more uncomfortable if she does not shower daily. She also uses the summary [employer] menopausal wipes and feels those are very helpful. [facility] Medical History Lichen sclerosus Thickened endometrium Postmenopausal bleeding History of cardioversion Morbid obesity Graves disease Diabetes PAF (paroxysmal atrial fibrillation) Surgical History Hx of cholecystectomy H/O knee surgery History of hernia repair S/P removal of left ovary Family History Father CVD (cardiovascular disease) Heart attack Mother Lung cancer Social History Household Members: Spouse Housing: Apartment Alcohol intake: former Comment: d/c from [employer] Patient Tobacco Use Status: Never used Tobacco Current occupational status: employed Current occupation: [employer], 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 Sexual orientation: Straight/Heterosexual Gender identity: Female Female Reproductive History Menstrual Age of Menarche: 7 Review of Systems Const All systems reviewed & are unremarkable except as noted in HPI and below Reports as per HPI Eyes Reports no additional complaints ENT Reports no additional complaints Card Reports no additional complaints Resp Reports no additional complaints GI Reports as per HPI and Reports no additional complaints Reports as per HPI Musc Reports no additional complaints Skin/Breast Reports as per HPI Neuro Reports no additional complaints Psych Reports no additional complaints Endo Reports no additional complaints Chandana/Lymph Reports no additional complaints Aller/Immun Reports no additional complaints Physical Exam Vital Signs: BMI result Body Mass Index 44.7 Const General: cooperative, healthy appearing, no acute distress, well developed and alert Other: External inspection only extensive lichen sclerosus changes from the clitoris to the anus, with discoloration, no excoriations, or lesions. Skin Rashes: no rashes Results Reviewed Results Reviewed: Surgical Pathology [id number] Name: Corazon Cortez Age/Sex: 54/F Attending: Stephanie Shafer CNM : 1970 Submitted by: Stephanie Shafer CNM Copies to: MR #: [id number] Status: DEP REF Collected: 11/10/24 Location: [facility] Received: 11/10/24 Diagnosis A. Vulva, upper left labia, shave biopsy: Lichen sclerosus et atrophicus. B. Vulva, upper right, shave biopsy: Lichen sclerosus et atrophicus. Clinical History Pruritus of vulva Microscopic Description Microscopic sections reviewed. The special stain PASF is negative for fungal organisms. Material Received A. Upper left labia bx B. Upper right vulvar bx Gross Description Received in two parts. Part A: Received in formalin labeled ?upper left labia bx? is a 0.6 x 0.5 x less than 0.1 cm thin and delicate rectangular fragment of lomeli-white mucosa, submitted in toto in a cassette labeled A. Part B: Received in formalin labeled ?upper right vulvar bx? is a 0.5 x 0.35 x 0.1 cm lomeli-white and steward- brown rectangular fragment of mucosa, submitted in toto in a cassette labeled B. CEDS Special stains ordered and performed: PASF on A and B. NOTE: Unless otherwise stated, all tissue is formalin-fixed and paraffin-embedded. Some or all of the immunohistochemical tests reported herein may have been developed and their performance characteristics determined by [facility]. They have not been cleared or approved by the U.S. Food and Drug Administration (FDA). However, the FDA has determined that such clearance or approval is not necessary. This laboratory is certified under the Clinical Laboratory Improvement Amendments of 1988 (CLIA) as qualified to perform high complexity clinical laboratory testing. Electronically Signed By: Bernadine Hugo MD 11/11/24 1033 Patient: Corazon Cortez Age/Sex: 54/[id number] MR#: [id number] Page 1 of 1 Assessment & Plan Assessment & Plan (1) Lichen sclerosus: Code(s): L90.0 - Lichen sclerosus et atrophicus Category: Medical Plan Discussed: Biopsy results: Lichen sclerosus et atrophicus. Treatment, long-term use of corticosteroids and concerns for extensive area, management of symptoms, consider referral for evaluation and options with provider that specializes in vulvar skin disorders. The patient expressed understanding and agreement with the plan of care. All of her questions and concerns were addressed to the best of my ability. This note is constructed using voice recognition software. While every effort has been made to ensure accuracy, blow pit helper errors may have been included. Medications: Refilled betamethasone dipropionate 0.05% Apply to area at bedtime a thin coat, for 2 weeks, then every other day for 2 weeks and then twice a week 1 appl topical DAILY 45 grams 0RF Coding Level of Care Code Est Pt Level 3 (38443) Diagnoses Lichen sclerosus L90.0
--- OUTSIDE RECORDS SUMMARY | 2024-11-23 11:59 | XMS_ITS | Patient Health Record ---
Author Organization [facility] [address] Address [address] [place] [address] Care Team Providers Care Senior Linux Unix Administrator Name Role Phone MADDIE REYES Unavailable [phone] Allergies Allergen (clinical drug ingredient) Drug/Non Drug Allergy documented on EMR Reaction Allergy Type Onset Date Status ibuprofen Ibuprofen Blood thinner Drug Allergy Act indigo Results Component Value Reference Range Notes BD BONE DENSITY DXA AXIAL SK ELETON Reviewed date:05/20/2024 08:56:43 AM Interpretation: Performing Lab: Notes/Report: Note See Note [facility], a member of [facility] Patient Name: CORAZON CORTEZ Date of : 1970 Reason for Exam: SCREENING Exam Date: 05/20/2024 [id number] EST Report Status: Final Ordering Provider: MADDIE [...] probability of hip fracture of 0.0%. Code 46782 -------- FINAL REPOR T -------- Dictated By: Rah Chamberlain Dictated Date: 05/20 08:31 ET Assigned Physician: Rah Chamberlain Reviewed and Electro nically Signed By: Rah Chamberlain Signed Date: 025 08:32 ET Workstation ID: [id number] Transcribed By: Self Edit Transcribed Date: 05/20/2024 08:31 ET Reason For Referral Reason Home Sleep Study ([facility]) Diagnosis 1 Obstructive apnea (G 47.33) Referral Organization [facility] [address] Referring Provider First Name MADDIE Referring Provider Last Name PHOEBEHOT Referring Provider Speciality Internal M edicine Referred Provider Specialty Pulmonology General Notes Alba Vail 01/2025 09:38:15 AM > Pt given phone [phone] to call and make an appt and referral form faxed to [phone] Clinical Notes Ursula Sanon 06/28 12:26:35 PM >can you resend referral to [facility] needs a insurance referral, Gomez Aquino 07/05/2024 09:43:16 AM > refaxed to [facility] Referral Priority Routine Reason [facility] Diagnosis 1 Sensorineural hearin g loss (SNHL) of both ears (H90.3) Referral Organization [facility] [address] Referring Provider First [...] wice a day; Duration: 90 days Active methIMAzole 5 MG 1 tablet Oral Once e very other day; Duration: 90 days Active Furosemide 20 MG Oral; Duration: 30 Days Active Omeprazole 20 MG 1 capsule 1/2 to 1 h our before morning meal Oral Once a day; Duration: 90 days Active Magnesium Oxide 400 MG Oral; Duration: 30 Days Active Vitamin B 12 500 MCG 1 tablet Orally Once a day Active Vitamin D (Cholecalciferol) 50 MCG (2000 UT) 1 capsule Orally Once a day Active dilTIAZem HCl ER Coated Beads 240 MG Oral; Duration: 30 Days Acti ve Social History Tobacco Use: Social History Observation Description Date Details (start date - stop date) Never Smoker NA - NA Tobacco Use/Smoking Question Answer Notes Are you a nonsmoker Problems Problem Type SNOMED Code ICD Code Onset Dates Problem Status W/U Status Risk Notes Problem Screening for osteoporosis (283021994) Encounter for screening for osteoporosis (Z13.820) Active confirmed Problem Morbid obesity (561869371) Morbid obesity (E66.01) Active confirmed Problem Obstructive sleep apnea syndrome (42873339) NICHOLE (obstructive sleep apnea) (G47.33) Active confirmed Problem Use of anticoagulation (466946368) Chronic anticoagulation (Z79.01) Active confirmed Problem Type II diabetes mellitus without complication (619200152) Type 2 diabetes mellitus without complication, without long-term current use of insulin (E11.9) Active confirmed Problem Body mass index 40+ - severely obese (695802752) BMI 50.0-59.9, adult (Z68.43) Active confirmed Problem Graves disease (696036680) Graves disease (E05.00) Active confirmed Problem Atrial fibrillation (37762419) PAF (paroxysmal atrial fibrillation) (I48.0) Active confirmed Problem Body mass index 40+ - severely obese (956280305) BMI 45.0-49.9, adult (Z68.42) Active confirmed Problem Sensorineural hearing loss, bilateral (141005805) Sensorineural hearing loss (SNHL) of both ears (H90.3) Active confirmed Problem Obstructive sleep apnea syndrome (30321854) Obstructive apnea (G47.33) Active confirmed Vital Signs Heart Rate 82 /min 11/19/2024 Oximetry 97 % 11/19/2024 Blood pressure diastolic 60 mm Hg 11/19/2024 Height 66 in 11/19/2024 Blood pressure systolic 130 mm Hg 11/19/2024 Weight 303 lbs 11/19/2024 BMI 48.9 kg/m2 11/19/2024 Encounters Encounter Location Date Provider Diagnosis [facility] [address] [address] 12/18/2023 MADDIE REYES Morbid obesity E66.0 1 ; BMI 45.0-49.9, adult Z68.42 ; Dietary counseling and surveillance Z71.3 ; Type 2 diabetes mellitus without complication, without long-term current use of insulin E11.9 ; Graves disease E05.00 ; Chronic anticoagulation Z79.01 ; PAF (paroxysmal atrial fibrillation) I48.0 and NICHOLE (obstructive sleep apnea) G47.33 [facility] [address] [address] 03/17/2024 MADDIE REYES Morbid obesity E66.0 1 ; BMI 45.0-49.9, adult Z68.42 ; Dietary counseling and surveillance Z71.3 ; Type 2 diabetes mellitus without complication, without long-term current use of insulin E11.9 ; Graves disease E05.00 ; Chronic anticoagulation Z79.01 ; PAF (paroxysmal atrial fibrillation) I48.0 and NICHOLE (obstructive sleep apnea) G47.33 [facility] [address] [address] 05/05/2024 MADDIE REYES Morbid obesity E66.0 1 ; BMI 45.0-49.9, adult Z68.42 ; Dietary counseling and surveillance Z71.3 ; Type 2 diabetes mellitus without complication, without long-term current use of insulin E11.9 ; Graves disease E05.00 ; Chronic anticoagulation Z79.01 ; PAF (paroxysmal atrial fibrillation) I48.0 and NICHOLE (obstructive sleep apnea) G47.33 [facility] [address] [address] 06/22/2024 MADDIE REYES Morbid obesity E66.0 1 ; BMI 45.0-49.9, adult Z68.42 ; Dietary counseling and surveillance Z71.3 ; Type 2 diabetes mellitus without complication, without long-term current use of insulin E11.9 ; Graves disease E05.00 ; Chronic anticoagulation Z79.01 ; PAF (paroxysmal atrial fibrillation) I48.0 ; NICHOLE (obstructive sleep apnea) G47.33 and Sensorineural hearing loss (SNHL) of both ears H90.3 [facility] [address] [address] 08/20/2024 MADDIE REYES Morbid obesity E66.0 1 [...] of blood pressure without abnormal findings Z01.30 [facility] [address] [address] 10/01/2024 MADDIE REYES Morbid obesity E66.0 1 [...] Z01.30 [facility] [address] 11/19/2024 MADDIECARMEN REYES Morbid obesity E66.0 1 ; [...] abnormal findings Z01.30 [facility] [address] 04/19/2024 [facility] [address] 05/05/2024 MADDIECARMEN BRISENO Encounter for screen ing for osteoporosis Z13.[address] [facility] [address] [place] [address] 05/20/2024 MADDIE [facility] [address] 06/28/2024 MADDIECARMEN REYES [facility] [address] [place] [address] 07/02/2024 [facility] [address] [place] [address] 08/20/2024 MADDIE REYES Annual physical exam Z00.00 [facility] [address] 11/19/2024 [facility] [address] 06/26/2024 MADDIE [facility] [address] 07/02/2024 MADDIE BORHOT [facility] [address] [address] 07/03/2024 MADDIE PHOEBEHOT [facility] [address] [address] 07/05/2024 MADDIE PHOEBEHOT [facility] [address] [address] 07/06/2024 MADDIE BORHOT [facility] [address] [address] 08/21/2024 MADDIE BORHOT [facility] [address] [address] 08/30/2024 MADDIE REYES Annual physical exam Z00.00 [facility] [address] [facility] [address] 08/31/2024 MADDIE REYES Annual physical exam Z00.00 [facility] [address] 10/26/2024 MADDIE REYES Assessments Encounter Date Diagnosis (ICD Code) Assessment Notes Treatment Notes Treatment Clinical Notes Section Notes 12/18/2023 Morbid obesity (ICD-10 - E66.01) #Weight Management 12/18/2023 Labs reviewed from [facility] September 2023 thriving Given ongoing weight loss this may be a recurrent problem until her weight stabilizes 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 or [...] minimum of 6 months The most recent [place] [employer] clinical endocrinologists and [place] [employer] guidelines recommend patients who [...] software and direct typing Please excuse inadvertent pin machine tender or typing errors, or uncorrected word substitutions Although every attempt has been made by the provider to proofread this document, occasional misspellings and typographical errors may still be present Due to the previous pandemic, and the use of personal protective equipment (PPE) This may decrease voice recognition accuracy Inadvertent pin machine tender errors may occur 03/17/2024 Morbid obesity (ICD-10 [...] minimum of 6 months The most recent [place] [employer]ocrinologists and [place] [employer] guidelines recommend patients who [...] software and direct typing Please excuse inadvertent pin machine tender or typing errors, or uncorrected word substitutions Although every attempt has been made by the provider to proofread this document, occasional misspellings and typographical errors may still be present Due to the previous pandemic, and the use of personal protective equipment (PPE) This may decrease voice recognition accuracy Inadvertent pin machine tender errors may occur 05/05/2024 Morbid obesity (ICD-10 [...] software and direct typing Please excuse inadvertent pin machine tender or typing errors, or uncorrected word substitutions Although every attempt has been made by the provider to proofread this document, occasional misspellings and typographical errors may still be present Due to the previous pandemic, and the use of personal protective equipment (PPE) This may decrease voice recognition accuracy Inadvertent pin machine tender errors may occur 05/05/2024 Encounter for screening [...] software and direct typing Please excuse inadvertent pin machine tender or typing errors, or uncorrected word substitutions Although every attempt has been made by the provider to proofread this document, occasional misspellings and typographical errors may still be present Due to the previous pandemic, and the use of personal protective equipment (PPE) This may decrease voice recognition accuracy Inadvertent pin machine tender errors may occur 06/22/2024 BMI 45.0-49.9, adult [...] software and direct typing Please excuse inadvertent pin machine tender or typing errors, or uncorrected word substitutions Although every attempt has been made by the provider to proofread this document, occasional misspellings and typographical errors may still be present Due to the previous pandemic, and the use of personal protective equipment (PPE) This may decrease voice recognition accuracy Inadvertent pin machine tender errors may occur 08/20/2024 Morbid obesity (ICD-10 - E66.01) Acute Concerns/Problem List: 08/20/2024 Labs reviewed and stable Stable on 15 mg of Zepbound Goal is to have BMI under 45 so she can get a left total knee replacement, recently got steroid injections with [facility] Sleep study later in the summer [...] software and direct typing Please excuse inadvertent pin machine tender or typing errors, or uncorrected word substitutions Although every attempt has been made by the provider to proofread this document, occasional misspellings and typographical errors may still be present Due to the previous pandemic, and the use of personal protective equipment (PPE) This may decrease voice recognition accuracy Inadvertent pin machine tender errors may occur 08/20/2024 Annual physical exam (ICD-10 - Z00.00) Acute Concerns/Problem List: 08/20/2024 Labs reviewed and stable Stable on 15 mg of Zepbound Goal is to have BMI under 45 so she can get a left total knee replacement, recently got steroid injections with [facility] Sleep study later in the summer [...] software and direct typing Please excuse inadvertent pin machine tender or typing errors, or uncorrected word substitutions Although every attempt has been made by the provider to proofread this document, occasional misspellings and typographical errors may still be present Due to the previous pandemic, and the use of personal protective equipment (PPE) This may decrease voice recognition accuracy Inadvertent pin machine tender errors may occur 08/20/2024 Annual physical exam (ICD-10 - Z00.00) 08/30/2024 Annual physical exam (ICD-10 - Z00.00) 08/31/2024 Annual physical exam (ICD-10 - Z00.00) 10/01/2024 Morbid obesity (ICD-10 - E66.01) #Weight Management 10/01/2024 Stable on 15 mg of Zepbound Goal is to have BMI under 45 so she can get a left total knee replacement, recently got steroid injections with [facility] She is euthyroid chemically Scheduled for [...] software and direct typing Please excuse inadvertent pin machine tender or typing errors, or uncorrected word substitutions Although every attempt has been made by the provider to proofread this document, occasional misspellings and typographical errors may still be present Due to the previous pandemic, and the use of personal protective equipment (PPE) This may decrease voice recognition accuracy Inadvertent pin machine tender errors may occur 11/19/2024 Morbid obesity (ICD-10 - E66.01) #Weight Management 11/19/2024 Discussed proper sleep hygiene Stable on 15 mg of Zepbound Continue Contrave maximum dosing Goal is to have BMI under 45 so she can get a left total knee replacement, recently got steroid injections with [facility] She is euthyroid chemically Scheduled for [...] software and direct typing Please excuse inadvertent pin machine tender or typing errors, or uncorrected word substitutions Although every attempt has been made by the provider to proofread this document, occasional misspellings and typographical errors may still be present Due to the previous pandemic, and the use of personal protective equipment (PPE) This may decrease voice recognition accuracy Inadvertent pin machine tender errors may occur 10/01/2024 BMI 45.0-49.9, adult (ICD-10 - Z68.42) #Weight Management 10/01/2024 Stable on 15 mg of Zepbound Goal is to have BMI under 45 so she can get a left total knee replacement, recently got steroid injections with [facility] She is euthyroid chemically Scheduled for [...] software and direct typing Please excuse inadvertent pin machine tender or typing errors, or uncorrected word substitutions Although every attempt has been made by the provider to proofread this document, occasional misspellings and typographical errors may still be present Due to the previous pandemic, and the use of personal protective equipment (PPE) This may decrease voice recognition accuracy Inadvertent pin machine tender errors may occur 11/19/2024 BMI 45.0-49.9, adult (ICD-10 - Z68.42) #Weight Management 11/19/2024 Discussed proper sleep hygiene Stable on 15 mg of Zepbound Continue Contrave maximum dosing Goal is to have BMI under 45 so she can get a left total knee replacement, recently got steroid injections with [facility] She is euthyroid chemically Scheduled for [...] software and direct typing Please excuse inadvertent pin machine tender or typing errors, or uncorrected word substitutions Although every attempt has been made by the provider to proofread this document, occasional misspellings and typographical errors may still be present Due to the previous pandemic, and the use of personal protective equipment (PPE) This may decrease voice recognition accuracy Inadvertent pin machine tender errors may occur 08/20/2024 BMI 45.0-49.9, adult (ICD-10 - Z68.42) Acute Concerns/Problem List: 08/20/2024 Labs reviewed and stable Stable on 15 mg of Zepbound Goal is to have BMI under 45 so she can get a left total knee replacement, recently got steroid injections with [facility] Sleep study later in the summer She [...] software and direct typing Please excuse inadvertent pin machine tender or typing errors, or uncorrected word substitutions Although every attempt has been made by the provider to proofread this document, occasional misspellings and typographical errors may still be present Due to the previous pandemic, and the use of personal protective equipment (PPE) This may decrease voice recognition accuracy Inadvertent pin machine tender errors may occur 06/22/2024 Dietary counseling and [...] software and direct typing Please excuse inadvertent pin machine tender or typing errors, or uncorrected word substitutions Although every attempt has been made by the provider to proofread this document, occasional misspellings and typographical errors may still be present Due to the previous pandemic, and the use of personal protective equipment (PPE) This may decrease voice recognition accuracy Inadvertent pin machine tender errors may occur 05/05/2024 BMI 45.0-49.9, adult [...] software and direct typing Please excuse inadvertent pin machine tender or typing errors, or uncorrected word substitutions Although every attempt has been made by the provider to proofread this document, occasional misspellings and typographical errors may still be present Due to the previous pandemic, and the use of personal protective equipment (PPE) This may decrease voice recognition accuracy Inadvertent pin machine tender errors may occur 03/17/2024 BMI 45.0-49.9, adult [...] minimum of 6 months The most recent [place] [employer] clinical endocrinologists and [place] [employer] guidelines recommend patients who [...] software and direct typing Please excuse inadvertent pin machine tender or typing errors, or uncorrected word substitutions Although every attempt has been made by the provider to proofread this document, occasional misspellings and typographical errors may still be present Due to the previous pandemic, and the use of personal protective equipment (PPE) This may decrease voice recognition accuracy Inadvertent pin machine tender errors may occur 12/18/2023 BMI 45.0-49.9, adult (ICD-10 - Z68.42) #Weight Management 12/18/2023 Labs reviewed from [facility] September 2023 thriving Given ongoing weight loss this may be a recurrent problem until her weight stabilizes 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 or [...] minimum of 6 months The most recent [place] [employer] clinical endocrinologists and [place] [employer] guidelines recommend patients who [...] software and direct typing Please excuse inadvertent pin machine tender or typing errors, or uncorrected word substitutions Although every attempt has been made by the provider to proofread this document, occasional misspellings and typographical errors may still be present Due to the previous pandemic, and the use of personal protective equipment (PPE) This may decrease voice recognition accuracy Inadvertent pin machine tender errors may occur 12/18/2023 Dietary counseling and surveillance (ICD-10 - Z71.3) #Weight Management 12/18/2023 Labs reviewed from [facility] September 2023 thriving Given ongoing weight loss this may be a recurrent problem until her weight stabilizes 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 or [...] minimum of 6 months The most recent [place] [employer] clinical [employer]ocrinologists and [place] [employer] guidelines recommend patients who [...] software and direct typing Please excuse inadvertent pin machine tender or typing errors, or uncorrected word substitutions Although every attempt has been made by the provider to proofread this document, occasional misspellings and typographical errors may still be present Due to the previous pandemic, and the use of personal protective equipment (PPE) This may decrease voice recognition accuracy Inadvertent pin machine tender errors may occur 03/17/2024 Dietary counseling and [...] minimum of 6 months The most recent [place] [employer] of clinical [employer]ocrinologists and [place] [employer] guidelines recommend patients who [...] software and direct typing Please excuse inadvertent pin machine tender or typing errors, or uncorrected word substitutions Although every attempt has been made by the provider to proofread this document, occasional misspellings and typographical errors may still be present Due to the previous pandemic, and the use of personal protective equipment (PPE) This may decrease voice recognition accuracy Inadvertent pin machine tender errors may occur 05/05/2024 Dietary counseling and [...] software and direct typing Please excuse inadvertent pin machine tender or typing errors, or uncorrected word substitutions Although every attempt has been made by the provider to proofread this document, occasional misspellings and typographical errors may still be present Due to the previous pandemic, and the use of personal protective equipment (PPE) This may decrease voice recognition accuracy Inadvertent pin machine tender errors may occur 06/22/2024 Type 2 diabetes [...] software and direct typing Please excuse inadvertent pin machine tender or typing errors, or uncorrected word substitutions Although every attempt has been made by the provider to proofread this document, occasional misspellings and typographical errors may still be present Due to the previous pandemic, and the use of personal protective equipment (PPE) This may decrease voice recognition accuracy Inadvertent pin machine tender errors may occur 08/20/2024 Dietary counseling and surveillance (ICD-10 - Z71.3) Acute Concerns/Problem List: 08/20/2024 Labs reviewed and stable Stable on 15 mg of Zepbound Goal is to have BMI under 45 so she can get a left total knee replacement, recently got steroid injections with [facility] Sleep study later in the summer [...] software and direct typing Please excuse inadvertent pin machine tender or typing errors, or uncorrected word substitutions Although every attempt has been made by the provider to proofread this document, occasional misspellings and typographical errors may still be present Due to the previous pandemic, and the use of personal protective equipment (PPE) This may decrease voice recognition accuracy Inadvertent pin machine tender errors may occur 11/19/2024 Dietary counseling and surveillance (ICD-10 - Z71.3) #Weight Management 11/19/2024 Discussed proper sleep hygiene Stable on 15 mg of Zepbound Continue Contrave maximum dosing Goal is to have BMI under 45 so she can get a left total knee replacement, recently got steroid injections with [facility] She is euthyroid chemically Scheduled for [...] software and direct typing Please excuse inadvertent pin machine tender or typing errors, or uncorrected word substitutions Although every attempt has been made by the provider to proofread this document, occasional misspellings and typographical errors may still be present Due to the previous pandemic, and the use of personal protective equipment (PPE) This may decrease voice recognition accuracy Inadvertent pin machine tender errors may occur 10/01/2024 Dietary counseling and surveillance (ICD-10 - Z71.3) #Weight Management 10/01/2024 Stable on 15 mg of Zepbound Goal is to have BMI under 45 so she can get a left total knee replacement, recently got steroid injections with [facility] She is euthyroid chemically Scheduled for [...] software and direct typing Please excuse inadvertent pin machine tender or typing errors, or uncorrected word substitutions Although every attempt has been made by the provider to proofread this document, occasional misspellings and typographical errors may still be present Due to the previous pandemic, and the use of personal protective equipment (PPE) This may decrease voice recognition accuracy Inadvertent pin machine tender errors may occur 10/01/2024 Type 2 diabetes mellitus without complication, without long-term current use of insulin (ICD-10 - E11.9) #Weight Management 10/01/2024 Stable on 15 mg of Zepbound Goal is to have BMI under 45 so she can get a left total knee replacement, recently got steroid injections with [facility] She is euthyroid chemically Scheduled for [...] software and direct typing Please excuse inadvertent pin machine tender or typing errors, or uncorrected word substitutions Although every attempt has been made by the provider to proofread this document, occasional misspellings and typographical errors may still be present Due to the previous pandemic, and the use of personal protective equipment (PPE) This may decrease voice recognition accuracy Inadvertent pin machine tender errors may occur 11/19/2024 Type 2 diabetes mellitus without complication, without long-term current use of insulin (ICD-10 - E11.9) #Weight Management 11/19/2024 Discussed proper sleep hygiene Stable on 15 mg of Zepbound Continue Contrave maximum dosing Goal is to have BMI under 45 so she can get a left total knee replacement, recently got steroid injections with [facility] She is euthyroid chemically Scheduled for [...] software and direct typing Please excuse inadvertent pin machine tender or typing errors, or uncorrected word substitutions Although every attempt has been made by the provider to proofread this document, occasional misspellings and typographical errors may still be present Due to the previous pandemic, and the use of personal protective equipment (PPE) This may decrease voice recognition accuracy Inadvertent pin machine tender errors may occur 08/20/2024 Type 2 diabetes mellitus without complication, without long-term current use of insulin (ICD-10 - E11.9) Acute Concerns/Problem List: 08/20/2024 Labs reviewed and stable Stable on 15 mg of Zepbound Goal is to have BMI under 45 so she can get a left total knee replacement, recently got steroid injections with [facility] Sleep study later in the summer [...] software and direct typing Please excuse inadvertent pin machine tender or typing errors, or uncorrected word substitutions Although every attempt has been made by the provider to proofread this document, occasional misspellings and typographical errors may still be present Due to the previous pandemic, and the use of personal protective equipment (PPE) This may decrease voice recognition accuracy Inadvertent pin machine tender errors may occur 06/22/2024 Graves disease (ICD-10 [...] software and direct typing Please excuse inadvertent pin machine tender or typing errors, or uncorrected word substitutions Although every attempt has been made by the provider to proofread this document, occasional misspellings and typographical errors may still be present Due to the previous pandemic, and the use of personal protective equipment (PPE) This may decrease voice recognition accuracy Inadvertent pin machine tender errors may occur 05/05/2024 Type 2 diabetes [...] software and direct typing Please excuse inadvertent pin machine tender or typing errors, or uncorrected word substitutions Although every attempt has been made by the provider to proofread this document, occasional misspellings and typographical errors may still be present Due to the previous pandemic, and the use of personal protective equipment (PPE) This may decrease voice recognition accuracy Inadvertent pin machine tender errors may occur 12/18/2023 Type 2 diabetes mellitus without complication, without long-term current use of insulin (ICD-10 - E11.9) #Weight Management 12/18/2023 Labs reviewed from [facility] September 2023 thriving Given ongoing weight loss this may be a recurrent problem until her weight stabilizes 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 or [...] minimum of 6 months The most recent [place] [employer]in[employer] and [place] [employer] guidelines recommend patients who [...] software and direct typing Please excuse inadvertent pin machine tender or typing errors, or uncorrected word substitutions Although every attempt has been made by the provider to proofread this document, occasional misspellings and typographical errors may still be present Due to the previous pandemic, and the use of personal protective equipment (PPE) This may decrease voice recognition accuracy Inadvertent pin machine tender errors may occur 03/17/2024 Type 2 diabetes [...] minimum of 6 months The most recent [place] [employer]in[employer] and [place] [employer] guidelines recommend patients who [...] software and direct typing Please excuse inadvertent pin machine tender or typing errors, or uncorrected word substitutions Although every attempt has been made by the provider to proofread this document, occasional misspellings and typographical errors may still be present Due to the previous pandemic, and the use of personal protective equipment (PPE) This may decrease voice recognition accuracy Inadvertent pin machine tender errors may occur 03/17/2024 Graves disease (ICD-10 [...] minimum of 6 months The most recent [place] [employer] and [place] [employer] guidelines recommend patients who [...] software and direct typing Please excuse inadvertent pin machine tender or typing errors, or uncorrected word substitutions Although every attempt has been made by the provider to proofread this document, occasional misspellings and typographical errors may still be present Due to the previous pandemic, and the use of personal protective equipment (PPE) This may decrease voice recognition accuracy Inadvertent pin machine tender errors may occur 12/18/2023 Graves disease (ICD-10 - E05.00) #Weight Management 12/18/2023 Labs reviewed from [facility] September 2023 thriving Given ongoing weight loss this may be a recurrent problem until her weight stabilizes 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 or [...] minimum of 6 months The most recent [place] [employer]in[employer] and [employer] [employer] guidelines recommend patients who [...] software and direct typing Please excuse inadvertent pin machine tender or typing errors, or uncorrected word substitutions Although every attempt has been made by the provider to proofread this document, occasional misspellings and typographical errors may still be present Due to the previous pandemic, and the use of personal protective equipment (PPE) This may decrease voice recognition accuracy Inadvertent pin machine tender errors may occur 05/05/2024 Graves disease (ICD-10 [...] software and direct typing Please excuse inadvertent pin machine tender or typing errors, or uncorrected word substitutions Although every attempt has been made by the provider to proofread this document, occasional misspellings and typographical errors may still be present Due to the previous pandemic, and the use of personal protective equipment (PPE) This may decrease voice recognition accuracy Inadvertent pin machine tender errors may occur 06/22/2024 Chronic anticoagulation (ICD-10 [...] software and direct typing Please excuse inadvertent pin machine tender or typing errors, or uncorrected word substitutions Although every attempt has been made by the provider to proofread this document, occasional misspellings and typographical errors may still be present Due to the previous pandemic, and the use of personal protective equipment (PPE) This may decrease voice recognition accuracy Inadvertent pin machine tender errors may occur 08/20/2024 Graves disease (ICD-10 - E05.00) Acute Concerns/Problem List: 08/20/2024 Labs reviewed and stable Stable on 15 mg of Zepbound Goal is to have BMI under 45 so she can get a left total knee replacement, recently got steroid injections with [facility] Sleep study later in the summer She [...] software and direct typing Please excuse inadvertent pin machine tender or typing errors, or uncorrected word substitutions Although every attempt has been made by the provider to proofread this document, occasional misspellings and typographical errors may still be present Due to the previous pandemic, and the use of personal protective equipment (PPE) This may decrease voice recognition accuracy Inadvertent pin machine tender errors may occur 11/19/2024 Graves disease (ICD-10 - E05.00) #Weight Management 11/19/2024 Discussed proper sleep hygiene Stable on 15 mg of Zepbound Continue Contrave maximum dosing Goal is to have BMI under 45 so she can get a left total knee replacement, recently got steroid injections with [facility] She is euthyroid chemically Scheduled for updated sleep study In November 2024 She is also working with [...] software and direct typing Please excuse inadvertent pin machine tender or typing errors, or uncorrected word substitutions Although every attempt has been made by the provider to proofread this document, occasional misspellings and typographical errors may still be present Due to the previous pandemic, and the use of personal protective equipment (PPE) This may decrease voice recognition accuracy Inadvertent pin machine tender errors may occur 10/01/2024 Graves disease (ICD-10 - E05.00) #Weight Management 10/01/2024 Stable on 15 mg of Zepbound Goal is to have BMI under 45 so she can get a left total knee replacement, recently got steroid injections with [facility] She is euthyroid chemically Scheduled for [...] software and direct typing Please excuse inadvertent pin machine tender or typing errors, or uncorrected word substitutions Although every attempt has been made by the provider to proofread this document, occasional misspellings and typographical errors may still be present Due to the previous pandemic, and the use of personal protective equipment (PPE) This may decrease voice recognition accuracy Inadvertent pin machine tender errors may occur 10/01/2024 Chronic anticoagulation (ICD-10 - Z79.01) #Weight Management 10/01/2024 Stable on 15 mg of Zepbound Goal is to have BMI under 45 so she can get a left total knee replacement, recently got steroid injections with [facility] She is euthyroid chemically Scheduled for [...] software and direct typing Please excuse inadvertent pin machine tender or typing errors, or uncorrected word substitutions Although every attempt has been made by the provider to proofread this document, occasional misspellings and typographical errors may still be present Due to the previous pandemic, and the use of personal protective equipment (PPE) This may decrease voice recognition accuracy Inadvertent pin machine tender errors may occur 11/19/2024 Chronic anticoagulation (ICD-10 - Z79.01) #Weight Management 11/19/2024 Discussed proper sleep hygiene Stable on 15 mg of Zepbound Continue Contrave maximum dosing Goal is to have BMI under 45 so she can get a left total knee replacement, recently got steroid injections with [facility] She is euthyroid chemically Scheduled for updated sleep study In November 2024 She is also working with [...] software and direct typing Please excuse inadvertent pin machine tender or typing errors, or uncorrected word substitutions Although every attempt has been made by the provider to proofread this document, occasional misspellings and typographical errors may still be present Due to the previous pandemic, and the use of personal protective equipment (PPE) This may decrease voice recognition accuracy Inadvertent pin machine tender errors may occur 08/20/2024 Chronic anticoagulation (ICD-10 - Z79.01) Acute Concerns/Problem List: 08/20/2024 Labs reviewed and stable Stable on 15 mg of Zepbound Goal is to have BMI under 45 so she can get a left total knee replacement, recently got steroid injections with [facility] Sleep study later in the summer She [...] software and direct typing Please excuse inadvertent pin machine tender or typing errors, or uncorrected word substitutions Although every attempt has been made by the provider to proofread this document, occasional misspellings and typographical errors may still be present Due to the previous pandemic, and the use of personal protective equipment (PPE) This may decrease voice recognition accuracy Inadvertent pin machine tender errors may occur 06/22/2024 PAF (paroxysmal atrial [...] software and direct typing Please excuse inadvertent pin machine tender or typing errors, or uncorrected word substitutions Although every attempt has been made by the provider to proofread this document, occasional misspellings and typographical errors may still be present Due to the previous pandemic, and the use of personal protective equipment (PPE) This may decrease voice recognition accuracy Inadvertent pin machine tender errors may occur 03/17/2024 Chronic anticoagulation (ICD-10 [...] minimum of 6 months The most recent [place] [employer]ocrin[employer] and [place] [employer] guidelines recommend patients who [...] software and direct typing Please excuse inadvertent pin machine tender or typing errors, or uncorrected word substitutions Although every attempt has been made by the provider to proofread this document, occasional misspellings and typographical errors may still be present Due to the previous pandemic, and the use of personal protective equipment (PPE) This may decrease voice recognition accuracy Inadvertent pin machine tender errors may occur 05/05/2024 Chronic anticoagulation (ICD-10 [...] software and direct typing Please excuse inadvertent pin machine tender or typing errors, or uncorrected word substitutions Although every attempt has been made by the provider to proofread this document, occasional misspellings and typographical errors may still be present Due to the previous pandemic, and the use of personal protective equipment (PPE) This may decrease voice recognition accuracy Inadvertent pin machine tender errors may occur 12/18/2023 Chronic anticoagulation (ICD-10 - Z79.01) #Weight Management 12/18/2023 Labs reviewed from [facility] September 2023 thriving Given ongoing weight loss this may be a recurrent problem until her weight stabilizes 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 or [...] minimum of 6 months The most recent [place] [employer]inologists and [place] [employer] guidelines recommend patients who [...] software and direct typing Please excuse inadvertent pin machine tender or typing errors, or uncorrected word substitutions Although every attempt has been made by the provider to proofread this document, occasional misspellings and typographical errors may still be present Due to the previous pandemic, and the use of personal protective equipment (PPE) This may decrease voice recognition accuracy Inadvertent pin machine tender errors may occur 12/18/2023 PAF (paroxysmal atrial fibrillation) (ICD-10 - I48.0) #Weight Management 12/18/2023 Labs reviewed from [facility] September 2023 thriving Given ongoing weight loss this may be a recurrent problem until her weight stabilizes 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 or [...] minimum of 6 months The most recent [place] [employer]in[employer] and [employer] [employer] guidelines recommend patients who [...] software and direct typing Please excuse inadvertent pin machine tender or typing errors, or uncorrected word substitutions Although every attempt has been made by the provider to proofread this document, occasional misspellings and typographical errors may still be present Due to the previous pandemic, and the use of personal protective equipment (PPE) This may decrease voice recognition accuracy Inadvertent pin machine tender errors may occur 03/17/2024 PAF (paroxysmal atrial [...] minimum of 6 months The most recent [place] [employer]inologists and [employer] [employer] guidelines recommend patients who [...] software and direct typing Please excuse inadvertent pin machine tender or typing errors, or uncorrected word substitutions Although every attempt has been made by the provider to proofread this document, occasional misspellings and typographical errors may still be present Due to the previous pandemic, and the use of personal protective equipment (PPE) This may decrease voice recognition accuracy Inadvertent pin machine tender errors may occur 05/05/2024 PAF (paroxysmal atrial [...] software and direct typing Please excuse inadvertent pin machine tender or typing errors, or uncorrected word substitutions Although every attempt has been made by the provider to proofread this document, occasional misspellings and typographical errors may still be present Due to the previous pandemic, and the use of personal protective equipment (PPE) This may decrease voice recognition accuracy Inadvertent pin machine tender errors may occur 06/22/2024 NICHOLE (obstructive sleep [...] software and direct typing Please excuse inadvertent pin machine tender or typing errors, or uncorrected word substitutions Although every attempt has been made by the provider to proofread this document, occasional misspellings and typographical errors may still be present Due to the previous pandemic, and the use of personal protective equipment (PPE) This may decrease voice recognition accuracy Inadvertent pin machine tender errors may occur 08/20/2024 PAF (paroxysmal atrial fibrillation) (ICD-10 - I48.0) Acute Concerns/Problem List: 08/20/2024 Labs reviewed and stable Stable on 15 mg of Zepbound Goal is to have BMI under 45 so she can get a left total knee replacement, recently got steroid injections with [facility] Sleep study later in the summer [...] software and direct typing Please excuse inadvertent pin machine tender or typing errors, or uncorrected word substitutions Although every attempt has been made by the provider to proofread this document, occasional misspellings and typographical errors may still be present Due to the previous pandemic, and the use of personal protective equipment (PPE) This may decrease voice recognition accuracy Inadvertent pin machine tender errors may occur 11/19/2024 PAF (paroxysmal atrial fibrillation) (ICD-10 - I48.0) #Weight Management 11/19/2024 Discussed proper sleep hygiene Stable on 15 mg of Zepbound Continue Contrave maximum dosing Goal is to have BMI under 45 so she can get a left total knee replacement, recently got steroid injections with [facility] She is euthyroid chemically Scheduled for [...] software and direct typing Please excuse inadvertent pin machine tender or typing errors, or uncorrected word substitutions Although every attempt has been made by the provider to proofread this document, occasional misspellings and typographical errors may still be present Due to the previous pandemic, and the use of personal protective equipment (PPE) This may decrease voice recognition accuracy Inadvertent pin machine tender errors may occur 10/01/2024 PAF (paroxysmal atrial fibrillation) (ICD-10 - I48.0) #Weight Management 10/01/2024 Stable on 15 mg of Zepbound Goal is to have BMI under 45 so she can get a left total knee replacement, recently got steroid injections with [facility] She is euthyroid chemically Scheduled for [...] software and direct typing Please excuse inadvertent pin machine tender or typing errors, or uncorrected word substitutions Although every attempt has been made by the provider to proofread this document, occasional misspellings and typographical errors may still be present Due to the previous pandemic, and the use of personal protective equipment (PPE) This may decrease voice recognition accuracy Inadvertent pin machine tender errors may occur 11/19/2024 NICHOLE (obstructive sleep apnea) (ICD-10 - G47.33) #Weight Management 11/19/2024 Discussed proper sleep hygiene Stable on 15 mg of Zepbound Continue Contrave maximum dosing Goal is to have BMI under 45 so she can get a left total knee replacement, recently got steroid injections with [facility] She is euthyroid chemically Scheduled for [...] software and direct typing Please excuse inadvertent pin machine tender or typing errors, or uncorrected word substitutions Although every attempt has been made by the provider to proofread this document, occasional misspellings and typographical errors may still be present Due to the previous pandemic, and the use of personal protective equipment (PPE) This may decrease voice recognition accuracy Inadvertent pin machine tender errors may occur 08/20/2024 NICHOLE (obstructive sleep apnea) (ICD-10 - G47.33) Acute Concerns/Problem List: 08/20/2024 Labs reviewed and stable Stable on 15 mg of Zepbound Goal is to have BMI under 45 so she can get a left total knee replacement, recently got steroid injections with [facility] Sleep study later in the summer She [...] software and direct typing Please excuse inadvertent pin machine tender or typing errors, or uncorrected word substitutions Although every attempt has been made by the provider to proofread this document, occasional misspellings and typographical errors may still be present Due to the previous pandemic, and the use of personal protective equipment (PPE) This may decrease voice recognition accuracy Inadvertent pin machine tender errors may occur 06/22/2024 Sensorineural hearing loss [...] software and direct typing Please excuse inadvertent pin machine tender or typing errors, or uncorrected word substitutions Although every attempt has been made by the provider to proofread this document, occasional misspellings and typographical errors may still be present Due to the previous pandemic, and the use of personal protective equipment (PPE) This may decrease voice recognition accuracy Inadvertent pin machine tender errors may occur 10/01/2024 NICHOLE (obstructive sleep apnea) (ICD-10 - G47.33) #Weight Management 10/01/2024 Stable on 15 mg of Zepbound Goal is to have BMI under 45 so she can get a left total knee replacement, recently got steroid injections with [facility] She is euthyroid chemically Scheduled for [...] software and direct typing Please excuse inadvertent pin machine tender or typing errors, or uncorrected word substitutions Although every attempt has been made by the provider to proofread this document, occasional misspellings and typographical errors may still be present Due to the previous pandemic, and the use of personal protective equipment (PPE) This may decrease voice recognition accuracy Inadvertent pin machine tender errors may occur 05/05/2024 NICHOLE (obstructive sleep [...] software and direct typing Please excuse inadvertent pin machine tender or typing errors, or uncorrected word substitutions Although every attempt has been made by the provider to proofread this document, occasional misspellings and typographical errors may still be present Due to the previous pandemic, and the use of personal protective equipment (PPE) This may decrease voice recognition accuracy Inadvertent pin machine tender errors may occur 03/17/2024 NICHOLE (obstructive sleep [...] minimum of 6 months The most recent [place] [employer]inologists and [place] [employer] guidelines recommend patients who [...] software and direct typing Please excuse inadvertent pin machine tender or typing errors, or uncorrected word substitutions Although every attempt has been made by the provider to proofread this document, occasional misspellings and typographical errors may still be present Due to the previous pandemic, and the use of personal protective equipment (PPE) This may decrease voice recognition accuracy Inadvertent pin machine tender errors may occur 12/18/2023 NIHCOLE (obstructive sleep apnea) (ICD-10 - G47.33) #Weight Management 12/18/2023 Labs reviewed from [facility] September 2023 thriving Given ongoing weight loss this may be a recurrent problem until her weight stabilizes 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 or [...] minimum of 6 months The most recent [place] [employer] of clinical endocrinologists and [place] [employer] guidelines recommend patients who [...] software and direct typing Please excuse inadvertent pin machine tender or typing errors, or uncorrected word substitutions Although every attempt has been made by the provider to proofread this document, occasional misspellings and typographical errors may still be present Due to the previous pandemic, and the use of personal protective equipment (PPE) This may decrease voice recognition accuracy Inadvertent pin machine tender errors may occur 08/20/2024 Sensorineural hearing loss (SNHL) of both ears (ICD-10 - H90.3) Acute Concerns/Problem List: 08/20/2024 Labs reviewed and stable Stable on 15 mg of Zepbound Goal is to have BMI under 45 so she can get a left total knee replacement, recently got steroid injections with [facility] Sleep study later in the summer [...] software and direct typing Please excuse inadvertent pin machine tender or typing errors, or uncorrected word substitutions Although every attempt has been made by the provider to proofread this document, occasional misspellings and typographical errors may still be present Due to the previous pandemic, and the use of personal protective equipment (PPE) This may decrease voice recognition accuracy Inadvertent pin machine tender errors may occur 10/01/2024 Sensorineural hearing loss (SNHL) of both ears (ICD-10 - H90.3) #Weight Management 10/01/2024 Stable on 15 mg of Zepbound Goal is to have BMI under 45 so she can get a left total knee replacement, recently got steroid injections with [facility] She is euthyroid chemically Scheduled for [...] software and direct typing Please excuse inadvertent pin machine tender or typing errors, or uncorrected word substitutions Although every attempt has been made by the provider to proofread this document, occasional misspellings and typographical errors may still be present Due to the previous pandemic, and the use of personal protective equipment (PPE) This may decrease voice recognition accuracy Inadvertent pin machine tender errors may occur 11/19/2024 Sensorineural hearing loss (SNHL) of both ears (ICD-10 - H90.3) #Weight Management 11/19/2024 Discussed proper sleep hygiene Stable on 15 mg of Zepbound Continue Contrave maximum dosing Goal is to have BMI under 45 so she can get a left total knee replacement, recently got steroid injections with [facility] She is euthyroid chemically Scheduled for [...] software and direct typing Please excuse inadvertent pin machine tender or typing errors, or uncorrected word substitutions Although every attempt has been made by the provider to proofread this document, occasional misspellings and typographical errors may still be present Due to the previous pandemic, and the use of personal protective equipment (PPE) This may decrease voice recognition accuracy Inadvertent pin machine tender errors may occur 11/19/2024 Encounter for examination of blood pressure without abnormal findings (ICD-10 - Z01.30) #Weight Management 11/19/2024 Discussed proper sleep hygiene Stable on 15 mg of Zepbound Continue Contrave maximum dosing Goal is to have BMI under 45 so she can get a left total knee replacement, recently got steroid injections with [facility] She is euthyroid chemically Scheduled for [...] software and direct typing Please excuse inadvertent pin machine tender or typing errors, or uncorrected word substitutions Although every attempt has been made by the provider to proofread this document, occasional misspellings and typographical errors may still be present Due to the previous pandemic, and the use of personal protective equipment (PPE) This may decrease voice recognition accuracy Inadvertent pin machine tender errors may occur 10/01/2024 Encounter for examination of blood pressure without abnormal findings (ICD-10 - Z01.30) #Weight Management 10/01/2024 Stable on 15 mg of Zepbound Goal is to have BMI under 45 so she can get a left total knee replacement, recently got steroid injections with [facility] She is euthyroid chemically Scheduled for [...] software and direct typing Please excuse inadvertent pin machine tender or typing errors, or uncorrected word substitutions Although every attempt has been made by the provider to proofread this document, occasional misspellings and typographical errors may still be present Due to the previous pandemic, and the use of personal protective equipment (PPE) This may decrease voice recognition accuracy Inadvertent pin machine tender errors may occur 08/20/2024 Encounter for examination of blood pressure without abnormal findings (ICD-10 - Z01.30) Acute Concerns/Problem List: 08/20/2024 Labs reviewed and stable Stable on 15 mg of Zepbound Goal is to have BMI under 45 so she can get a left total knee replacement, recently got steroid injections with [facility] Sleep study later in the summer [...] software and direct typing Please excuse inadvertent pin machine tender or typing errors, or uncorrected word substitutions Although every attempt has been made by the provider to proofread this document, occasional misspellings and typographical errors may still be present Due to the previous pandemic, and the use of personal protective equipment (PPE) This may decrease voice recognition accuracy Inadvertent pin machine tender errors may occur Plan Of Treatment Pending Test Test Name Order Date Bone Density 05/05/2024 Next Appt Details Provider Name:MADDIE RYEES, 12/28/2024 10:00:00 AM, [address] [facility], [facility], [place], [address], Insurance Providers Payer Name Payer Address Payer Phone Subscriber Number Group Number Insured Name Patient Relationship to Insured Coverage Start Date Coverage End Date [facility] [address] [place] [address] [phone] [id number] Corazon Cortez Self - patient is the insured Medical (General) History Medical History History ICD Code diabetes mellitus graves disease afib gastroesophageal reflux disease (GERD) hyperlipidemia asthma sleep apnea Surgical History Surgery Date(Month/Year) cholecystectomy umbilical hernia repair arthroscopic knee surgery left partial hysterectomy Hospitalization History Reason Date(Month/Year) cardioversion x 3 episodes (01/2022, 2020, 09/2019)
--- OUTSIDE RECORDS SUMMARY | 2024-11-23 11:59 | XMS_ITS | Clinical Summary ---
Author Organization [facility] Address [address] [place] [address] Phone Care Team Providers Care Automatic Gluing Machine Operator Name Role Phone Blaire Estrada BRICK TESTER Primary Care Provider [phone] Surgical History Surgery Date Site/Laterality Comments CHOLECYSTECTOMY 1993 PROCEDURE: HISTORICAL CHOLECYSTECTOMY OTHER SURGICAL HISTORY 2001 PROCEDURE: NM LAPAROSCOPY SALPINGOSTOMY; COMMENT: left TONSILLECTOMY 1995 PROCEDURE: [...] probability of hip fracture of 0.0%. Code 87430 -------- FINAL REPORT -------- Dictated By: Rah Chamberlain Dictated Date: 05/20/2024 08:31 ET Assigned Physician: Rah Chamberlain Reviewed and Electronically Signed By: Rah Chamberlain Signed Date: 05/20/2024 08:32 ET Workstation ID: [id number] Transcribed By: Self Edit Transcribed Date: 05/20/2024 [...] density of the femurs bilaterally is 1.258 gm/ks2wvdcd is 125% of that of young normals [...] probability of hip fracture of 0.0%. Code 56530 -------- FINAL REPORT -------- Dictated By: Rah Chamberlain Dictated Date: 05/20/2024 08:31 ET Assigned Physician: Rah Chamberlain Reviewed and Electronically Signed By: Rah Chamberlain Signed Date: 05/20/2024 08:32 ET Workstation ID: [id number] Transcribed By: Self Edit Transcribed Date: 05/20/2024 08:31 ET Blaire Estrada NP IMG DXA PROCEDURES Final Resu lt from Last 3 Months or Most Recently Relevant to Health Maintenance Insurance [facility] Care Teams Automatic Gluing Machine Operator Relationship Specialty Start Date End Date Blaire Estrada NP [address] [address] PCP - General Nurse Practitioner 05/20/24
--- OUTSIDE RECORDS SUMMARY | 2024-11-23 11:59 | XMS_ITS | Data Portability ---
Author Organization [facility], [facility] Address [address] [place] [address] Care Team Providers Care Pasta Press Operator Name Role Phone [facility] Primary Care Provider MADDIE REYES Primary Care Provider Assessment No assessment recorded. Plan of Treatment Reminders Order Date Submit Date Provider Last Modified By Organization Details Last Modified Time Details Appointments RECHECK 2024 08:40A M Jose Antonio Navarrete PA-C Not available Not available Not available RECHECK 2024 09:10A M Jose Antonio Navarrete PA-C Not available [...] Organization Details Recorded Time Osteoarthritis of knee 131269373 Active 2023 Jose Antonio Navarrete PA-C [address], [place], [address], [facility] 06:31:49 Problem Notes None recorded. Procedures Surgical History Date Name Laterality Status Provider Name and Address Organization Details Recorded Time 11/05/2024 Sports Knee 4&1 completed Jose Antonio Navarrete PA-C [address], [place], [address], [facility] 11/05/2024 06:34:45 09/20/2024 Sports Knee 4&1 completed Jose Antonio Navarrete PA-C [address], [place], [address], [facility] 09/20/2024 06:03:06 08/11/2024 Sports Knee 4&1 completed Jose Antonio Navarrete PA-C [address], [place], [address], [facility] 08/11/2024 06:12:41 06/21/2024 Sports Knee 4&1 completed Jose Antonio Navarrete PA-C [address], [place], [address], [facility] 06/21/2024 08:24:39 05/11/2024 Sports Knee 4&1 completed Jose Antonio Navarrete PA-C [address], [place], [address], [facility] 05/11/2024 15:25:25 03/16/2024 Sports Knee 4&1 completed Jose Antonio Navarrete PA-C [address], [place], [address], [facility] 03/16/2024 09:59:04 02/11/2024 Sports Knee 4&1 completed Jose Antonio Navarrete PA-C [address], [place], [address], [facility] 02/11/2024 06:26:49 11/12/2023 Sports Knee 4&1 completed Jose Antonio Navarrete PA-C [address], [place], [address], [facility] 11/12/2023 05:57:52 09/29/2023 Sports Knee 4&1 completed Jose Antonio Navarrete PA-C [address], [place], [address], [facility] 09/29/2023 08:27:22 06/25/2023 Sports Knee 4&1 completed Jose Antonio Navarrete PA-C [address], [place], [address], [facility] 06/25/2023 08:35:22 Imaging Results None recorded. Procedure Notes None recorded. Medical Equipment None Reported. Allergies Allergen ID Allergen Name Allergen Category Reaction Reaction Severity Criticality Documentation Date Start Date Code Code System Note Provider Name and Address Organization Details Recorded Time [id number] Tylenol with Codeine medicatio n Not available Not available Not available 06/25/2023 38586 6 RxNorm Jose Antonio Navarrete PA-C [address] [facility] [address], [place], [address] [place] [address] - [facility] 08:29:36 Medications Name Sig [...] e-betametha sone 1 %-0.05 % topical cream APPLY 1 APPLICATI ON OF CREAM TOPICALLY TWICE DAILY TO AFFECTED AREAS ON FEET active Not Available Not Available No t Available flecainide 100 mg tablet TAKE 1 & 1/2 TABLETS BY MOUTH TWICE A DAY active Not Available Not Available No t Available methimazole 5 mg tablet TAKE 1 TABLET BY MOUTH ONCE DAILY active Not Available Not Available No t Available betamethaso ne, augmented 0.05 % topical ointment APPLY A THIN COAT OF OINTMENT TOPICALLY TO AFFECTED AREA AT BEDTIME FOR 2 WEEKS, THEN EVERY OTHER DAY FOR 2 WEEKS, THEN TWICE A WEEK. active Not Available Not Available No t Available omeprazole 20 mg capsule,del ayed release TAKE 1 CAPSULE BY MOUTH ONCE DAILY active Not Available Not Available No t Available furosemide 20 mg tablet TAKE 1 TABLET BY MOUTH ONCE DAILY active Not Available Not Available No t Available cefuroxime axetil 500 mg tablet 11/09 completed Not Available Not Available Not Available ketoconazol e 2 % topical cream APPLY A THIN LAYER OF CREAM (0.5 GRAMS) TOPICALLY TO FEET, EVEN BETWEEN TOES, TWICE DAILY FOR 30 DAYS active Not Available Not Available No t Available ondansetron 4 mg disintegrat ing tablet PLACE 1 TAB ON TONGUE AND ALLOW TO DISSOLVE NEEDED FOR NAUSEA/VO MITING ONCE A DAY active Not Available Not Available No t Available metformin ER 750 mg tablet,exte nded [...] Updated DateTime 05/11/2024 172.72 cm 44.7 kg/m2 013899.16 g Jose Antonio Navarrete PA-C [address] [facility], [place], [address], [facility] 05/11/2024 14:59:35 Date Recorded Body height Body mass index (BMI) Body weight Provider Name and Address Organization Details Last Updated DateTime 06/21/2024 172.72 cm 44.6 kg/m2 275858.56 g Jose Antonio Navarrete PA-C [address], [place], [address], [facility] 06/21/2024 09:18:38 Date Recorded Body height Body mass index (BMI) Body weight Provider Name and Address Organization Details Last Updated DateTime 08/11/2024 172.72 cm 44.4 kg/m2 675224.97 g Ashlyn Wong [facility] 08/11/2024 12:57:24 Date Recorded Body height Body mass index (BMI) Body weight Provider Name and Address Organization Details Last Updated DateTime 09/20/2024 172.72 cm 44.4 kg/m2 915449.97 g Jose Antonio Navarrete PA-C [address] [facility], [place], [address], [facility] 09/20/2024 08:42:32 Date Recorded Body height Body mass index (BMI) Body weight Provider Name and Address Organization Details Last Updated DateTime 11/05/2024 172.72 cm 44.4 kg/m2 009804.97 g Jose Antonio Navarrete PA-C [address], [place], [address], [facility] 11/05/2024 08:36:43 Social History Question Answer Notes LastModified by Bushido Details LastModified Time Tobacco Smoking Status Never Smoker Jose Antonio Navarrete PA-C [address] [facility], [place], [address], [facility] 06/21/2024 09:19:17 What Is Your Relationship Status? [email or web address] [phone] Information not available 06/21/2024 Sex: Unknown Functional Status Question Answer Note LastModified by Bushido Details LastModified Time Do you use any illicit or recreational drugs? No vidant pungo Information not available 06/21/2024 What is your level of alcohol consumption? None vidant pungo Information not available 06/21/2024 Mental Status None recorded. Family History Nothing Reported. Medical History Condition Response Heart Trouble Y Diabetes Y Arthritis Y Thyroid Problems Y Sleep Apnea Y Gynecological HistoryNo gynecological history recorded. Obstetrics History GPAL:G 0 P 0 0 0 0 Past Encounters Encounter ID Performer Location Encounter Start Date Encounter Closed Date Diagnosis/Indication Diagnosis SNOMED-CT Code Diagnosis ICD10 Code Diagnosis IMO Codes Diagnosis Note [id number] [facility] [address] [place] [address] 06/25/2023 08:11:22 07/08/2023 14:07:40 Osteoarthritis of knee 240284198 M17.9 [id number] Jose Antonio Navarrete PA-C [place] [address] [place] [address] 09/29/2023 08:04:13 10/20/2023 16:00:21 Osteoarthritis of knee 957745859 M17.9 [id number] Jose Antonio Navarrete PA-C [facility] [address] [place] [address] 11/12/2023 08:10:47 11/24/2023 14:23:35 Osteoarthritis of knee 940422043 M17.9 [id number] Jose Antonio Navarrete PA-C [facility] [address] [place] [address] 12/23/2023 09:57:27 01/12/2024 09:47:50 Osteoarthritis of knee 302695554 M17.9 [id number] [facility] [address] [place] [address] 02/11/2024 08:26:28 03/08/2024 10:19:34 Osteoarthritis of knee 732201757 M17.9 [id number] Jose Antonio Navarrete PA-C [facility] - [place] [place] [address] 03/16/2024 09:28:26 04/02/2024 09:02:50 Osteoarthritis of knee 915961451 M17.9 [id number] Jose Antonio Navarrete PA-C [facility] [place] [address] [place] [address] 05/11/2024 14:47:57 05/26/2024 07:52:38 Osteoarthritis of knee 801939818 M17.9 [id number] Jose Antonio Navarrete PA-C [facility] [place] [address] [place] [address] 06/21/2024 09:07:49 06/25/2024 07:44:43 Osteoarthritis of knee 977618855 M17.9 [id number] [facility] - [place] [address] [place] [address] 08/11/2024 12:47:56 08/17/2024 12:16:17 Osteoarthritis of knee 043472346 M17.9 [id number] [facility] [address] [place] [place] [address] 09/20/2024 08:33:50 09/20/2024 09:03:28 Osteoarthritis of knee 747446049 M17.9 [id number] [facility] - [place] [address] [place] [address] 11/05/2024 08:24:26 11/18/2024 07:05:47 Osteoarthritis of knee 013510636 M17.9 Health Concerns Section Related Observation LastModified by Organization Detai ls LastModified Time None Recorded Concern Status LastModified by Organization Details LastModified Time None Recorded Advance Directives Directive None Recorded Payers Insurance Date Sequence Insurance Name Policy Number Policy Angela Covered Member ID Angela Member ID Guarantor Name 11/18/2024 1 [facility] ([facility] [id number] Corazon Paulajoel [id number] Corazon Cortez Notes Date Note Type Note Provider Name and Address Organization Details Recorded Time 05/11/2024 text/html I am seeing the patient [...] optimize her readiness for total knee arthroplasty. [employer] speech recognition concrete stone fabricating supervisor software was used to create portions of this document. An attempt at proofreading has been made to minimize errors. Please call for corrections Jose Antonio Navarrete PA-C [address], [place], [address], [facility] - [facility] 05/11/2024 15:25:38 06/21/2024 text/html I am seeing [...] optimize her readiness for total knee arthroplasty. [employer] speech recognition concrete stone fabricating supervisor software was used to create portions of this document. An attempt at proofreading has been made to minimize errors. Please call for corrections Jose Antonio Navarrete PA-C [address], [place], [address], [facility] 06/21/2024 09:43:43 08/11/2024 text/html I am seeing the patient today under the supervision of Dr. Johnson who was available but who did not [...] views ordered and independently reviewed today at [facility] of the bilateral knee taken previously [...] optimize her readiness for total knee arthroplasty. [facility] speech recognition concrete stone fabricating supervisor software was used to create portions of this document. An attempt at proofreading has been made to minimize errors. Please call for corrections Jose Antonio Navarrete PA-C [address], [place], [address], [facility] 08/11/2024 13:08:01 09/20/2024 text/html I am seeing the patient today [...] optimize her readiness for total knee arthroplasty. [employer] speech recognition concrete stone fabricating supervisor software was used to create portions of this document. An attempt at proofreading has been made to minimize errors. Please call for corrections Jose Antonio Navarrete PA-C [address] [place] [address], [place], [address], [facility] 09/20/2024 09:02:10 11/05/2024 text/html I am seeing the patient today under the supervision of Dr. Bashir who was available but who did not see the patient. HPI: Corazon comes in today 54-year-old female with primary chief complaint of left knee pain. She is known to me she is hoping to consider total knee arthroplasty, continues to make excellent progress regarding reducing of her BMI now 44.7 reports no recent complications or issues. Clinical Update:Patient returns today for follow-up evaluation regarding her right knee. She reports a new injury when she fell on the anterior aspect of her left knee, because of her anticoagulation she had significant bruising in the area it has since subsided a bit over the last 5 weeks. Orthopedic Exam: Right knee Restricted range of [...] Assessment: Left knee medial compartment and patellofemoral osteoarthritis, contusion proximal tibia left lower extremity Plan: Treatment options reviewed ultimately decision made to go forth right knee corticosteroid injection. She is going to meet with her primary care doctor and discuss changing up some of her medications to try to optimize her readiness for total knee arthroplasty. [facility] speech recognition concrete stone fabricating supervisor software was used to create portions of this document. An attempt at proofreading has been made to minimize errors. Please call for corrections Jose Antonio Navarrete PA-C [address] [facility] [address], [place], [address], [facility] 11/05/2024 08:55:23 OBGyn Episode No OBEpisode recorded.
--- OUTSIDE RECORDS SUMMARY | 2024-11-23 11:59 | XMS_ITS | Patient Health Record ---
Author Organization [facility] Address [address] [facility] [place] [address] Care Team Providers Care Communications Station Manager Name Role Phone Sean MCKEE, Blaire Primary Care Provider Lily Corral Unavailable [phone] Allergies Allergen (clinical drug ingredient) Drug/Non Drug [...] Problem Acquired hammer toe of right foot (1683809616084439 ) Other hammer toe(s) (acquired), right foot (M20.41) Active confirmed Problem Acquired hammer toe of left foot (8436584853093240 ) Other hammer toe(s) (acquired), left foot (M20.42) Active confirmed Problem Acquired hammer toe of left foot (9363380817877434 ) Hammer toe of left foot (M20.42) Active confirmed Problem Polyneuropathy due to type 2 diabetes mellitus (071781102) Type 2 diabetes mellitus with polyneuropathy (E11.42) Active confirmed Problem Plantar fascial fibromatosis (65934280) Plantar fasciitis, bilateral (M72.2) Active confirmed Vital Signs Blood pressure diastolic 65 mm Hg 10/22/2024 Height 5ft 6in in 10/22/2024 Blood pressure systolic 120 mm Hg 10/22/2024 Weight 292 lbs 10/22/2024 BMI 47.12 kg/m2 10/22/2024 Encounters Encounter Location Date Provider Diagnosis [address] [address] 01/27/2024 Lily Toledo Type 2 diabetes mellitus with polyneuropathy E11.[address] [place] [address] 05/20/2024 Lily Toledo Type 2 diabetes mellitus [...] M60.872 and Bursitis of left foot M77.[address] [address] 07/30/2024 Lily Toledo Type 2 diabetes mellitus [...] and Tinea pedis of both feet B35.[address] [address] 10/22/2024 Lily Toledo Plantar fasciitis, bilateral M72.2 ; Tinea pedis of both feet B35.3 and Type 2 diabetes mellitus with polyneuropathy E11.[address] [place] [address] 05/21/2024 Lily Toledo [facility] [address] [address] 08/04/2024 Lily Toledo Assessments Encounter Date Diagnosis [...] Provider Name:Lily freeman, 12/28/2024 03:00:00 PM, [address] [place], [address], Insurance Providers Payer Name Payer Address Payer Phone Subscriber Number Group Number Insured Name Patient Relationship to Insured Coverage Start Date Coverage End Date [facility] [address] [place] [address] [phone] [id number] Corazon Cortez Self - patient is [...]
== END 2024-11-23 12:44 | disposition home or self-care (01) ==
LOC: HO.HWS 10:40
PROVIDERS: PCP Nurse Practitioner Acute Care; Visit Provider Advanced Practice Midwife
DX: L90.0 Lichen sclerosus et atrophicus (principal)
CPT/HCPCS: 99213

== ENCOUNTER 2025-01-31 10:51 | Outpatient (AMB) | payer BC, SELFPAY ==
--- NOTE | 2025-01-31 11:00 | A.OFFVIS_ITS ---
Vital Signs 01/31/25 11:01 Height 5 ft 8 in Weight 298 lb 15.149 oz BMI 45.4 BP 130/64 Blood Pressure Location Rt brachial Position Sitting Pulse 80 Pulse Source Monitor Intake Visit Reasons: 6 Month Follow Up Intake Note: 6 mth f/up [place] Laborer Required: No Accompanied by: Self / Same As Patient Allergies naproxen (From Aleve) Adverse Reaction (Verified 11/23/24 10:57) bleeding Medication List - Last Reconciled 01/31/25 by Italo Cervantes MD acetaminophen 1,000 mg PO BEDTIME acetaminophen 650 mg PO DAILY apixaban 5 mg PO BID ascorbic acid (vitamin C) (Vitamin C) 500 mg PO DAILY ascorbic acid (vitamin C) mg PO atorvastatin 10 mg PO DAILY betamethasone dipropionate 0.05% 1 appl topical DAILY cholecalciferol (vitamin D3) (Vitamin D3) 25 mcg PO DAILY diltiazem HCl CD 240 mg PO BEDTIME flecainide 150 mg (1.5 x 100 mg) PO BID 90 days furosemide 20 mg PO DAILY magnesium oxide 400 mg PO BID mecobalamin (vitamin B12) 1,000 mcg PO DAILY metformin 500mg AM, 1000mg PM metformin 500 mg PO DAILY methimazole 5 mg PO Q2D naltrexone-bupropion 8-90 mg (Contrave) 2 tabs PO BID omeprazole 20 mg PO DAILY ondansetron HCl 4 mg PO Q8H PNV 119-iron fum-folic acid 29 mg iron- 1 mg tabs PO tirzepatide (Mounjaro) 10 mg subcut QWEEK HPI Comments Details: 54-year-old female who is here for follow-up. She presented to the clinic with palpitation and was in atrial flutter. She was admitted to the hospital underwent cardioversion. She was discharged home after that on flecainide 150 mg twice a day. She is on apixaban 5 mg twice a day. She has been stable since then. Denying any symptoms currently. she was seen by EP and was advised to lose weight. She had ECG in EP office today at [facility] which showed sinus rhythm. Taking meds. She is losing weight and has been on Mounjaro with better sugar control. 11/18/2022, she returns for follow-up. She has been following with weight management program has lost 16 lb at this stage. She is looking quite focused and has cut back significantly on her sugar intake. She is denying any significant symptoms otherwise. Taking medications regularly. No palpitations on follow-up. 08/06/23: She returns for f/u. She is doing well and has no significant palpitations. She has lost significant weight with Mounjaro. Taking medications regularly. 02/11/24: She is here for follow-up. She is doing well and has no episodes of atrial fibrillation. She is on flecainide 150 mg twice a day and on Eliquis 5 mg twice a day. She is saying that she is hyperthyroid again and is closely following with endocrinology in [place]. 08/02/2024: She is here for follow-up. Denying any chest pain or shortness of breath. No palpitations. She was losing weight with Mounjaro. She has right knee arthritis which limits her mobility. Blood pressure is well controlled. 01/31/2025: She is here for follow-up. She has been doing well. No chest discomfort shortness of breath. Continues to be in sinus rhythm. She has been on tirzepatide and has lost approximately 100 lb. She is stable from hyperthyroidism point of view and has been on methimazole. [facility] Medical History Lichen sclerosus Thickened endometrium Postmenopausal bleeding History of cardioversion Morbid obesity Graves disease Diabetes PAF (paroxysmal atrial fibrillation) Surgical History Hx of cholecystectomy H/O knee surgery History of hernia repair S/P removal of left ovary Family History Father CVD (cardiovascular disease) Heart attack Mother Lung cancer Social History Household Members: Spouse Housing: Apartment Alcohol intake: former Comment: d/c from [facility] Patient Tobacco Use Status: Never used Tobacco Current occupational status: employed Current occupation: [employer], 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 Sexual orientation: Straight/Heterosexual Gender identity: Female Female Reproductive History Menstrual Age of Menarche: 7 Review of Systems Const Denies chills, Denies fatigue, Denies fever(s), Denies frequent falls, Denies weakness, Denies weight gain and Denies weight loss ENT Denies dizziness Card Denies chest pain, Denies leg edema, Denies lightheadedness, Denies palpitatio ns, Denies dyspnea and Denies dyspnea on exertion Resp Denies cough, Denies dyspnea and Denies dyspnea on exertion GI Denies hematochezia Musc Denies abnormal gait, Denies muscle weakness, Denies numbness, Denies radiating pain into limb and Denies tingling Neuro Denies abnormal gait, Denies dizziness, Denies frequent falls, Denies numbness, Denies tingling and Denies weakness Endo Denies fatigue and Denies palpitations Physical Exam Vital Signs: Last Vital Signs Pulse 80 01/31/25 11:01 BP 130/64 01/31/25 11:01 BMI result Body Mass Index 45.4 GENERAL APPEARANCE: in no acute distress, pleasant. NECK: no carotid bruit, no jugular venous distention. SKIN: no suspicious lesions, warm and dry. HEART: no murmurs, regular rate and rhythm. LUNGS: clear to auscultation bilaterally. ABDOMEN: soft, nontender. EXTREMITIES: no edema. PERIPHERAL PULSES: equal. NEUROLOGIC: No gross deficits, AAO X 3 Office Procedures EKG Details: Sinus rhythm 80 beats per minute, normal axis, low voltage, QTC 477 milliseconds. [id number], Complete Assessment & Plan Assessment & Plan (1) PAF (paroxysmal atrial fibrillation): Code(s): I48.0 - Paroxysmal atrial fibrillation Category: Medical (2) Atrial flutter: Code(s): I48.92 - Unspecified atrial flutter Category: Medical Plan Pleasant 54 year lady who is here for follow-up. She has background history of atrial fibrillation and atrial flutter. She is on flecainide and has been in sinus rhythm. She has lost approximately 100 lb with Mounjaro and diet. Continues to be in sinus rhythm at this point. We discussed about ablation as a possible option to get off flecainide. She is interested and I am referring her to Dr Jacob. Continue same medications for now. Thank you for allowing me to participate in the care of your patient. Please feel free to contact me if you have any questions. Coding Level of Care Code Est Pt Level 4 (75366) Diagnoses PAF (paroxysmal atrial fibrillation) I48.0 Atrial flutter I48.92 CPT Codes EKG - CPT: 71159-[id number], Complete ([id number])
[2025-01-31 11:01] VITALS: BP 130/64; PULSE 80; BMI 45.4
== END 2025-01-31 11:24 | disposition home or self-care (01) ==
LOC: HO.HCS 10:52
PROVIDERS: PCP Nurse Practitioner Acute Care; Visit Provider Internal Medicine Cardiovascular Disease
DX: I48.0 Paroxysmal atrial fibrillation (principal); I48.92 Unspecified atrial flutter
CPT/HCPCS: 93010; 99214

== ENCOUNTER → 2025-01-31 10:51 | Outpatient (BNVA) | payer BC, SELFPAY | PROVIDERS: PCP Nurse Practitioner Acute Care; Visit Provider Internal Medicine Cardiovascular Disease | DX: I48.0 Paroxysmal atrial fibrillation (principal); I48.92 Unspecified atrial flutter; E05.90 Thyrotoxicosis, unspecified without thyrotoxic crisis or storm; E11.9 Type 2 diabetes mellitus without complications; Z79.84 Long term (current) use of oral hypoglycemic drugs; Z79.85 Long-term (current) use of injectable non-insulin antidiabetic drugs; Z79.01 Long term (current) use of anticoagulants; Z79.899 Other long term (current) drug therapy | CPT/HCPCS: 93005 ==

== ENCOUNTER 2025-02-18 09:33 | Outpatient (REF) | payer BC, SELFPAY ==
--- OUTSIDE RECORDS SUMMARY | 2024-04-09 04:30 | XMS_ITS ---
Author Organization [facility] Address [address] [place] [address] Care Team Providers Care Bone Tender Name Role Phone Sean MCKEE, Blaire Primary Care Provider Lily Corral [phone] Ma Encounters Encounter Location Date Provider Diagnosis [address] [address] 04/09/2024 Lily Toledo Plan Of Treatment Next Appt Details Provider Name:Lily freeman, 04/05/2025 02:45:00 PM, [address] [place] [address], [address], Progress Notes * Ran BRISENOVladOB: [birth year] (54 yo F)Acc No.[id number]:04/09/2024 Progress Note Patient: Corazon CORDOVA Provider: Ramón Toledo DPM :1970 A ge:53 Y S ex:Female Date:04/09/2024 Address:[address] [place] Pcp:Blaire Estrada NP Subjective: * Chief Complaints: * [address] Ma[address] * Medical History: Objective: * Vitals: Assessment: Plan: * Treatment: * Images: * The named appointment provid er may or may not be the originator of this progress note, and it is not deemed complete until electronically signed by the appointment provider. Sign off status: Pending * Provider: Ramón Toledo DPM Date: 0 04/09/2024 Generated for Jeri Dowd/Ralph on: 04/21/2024 09:38 AM EST
--- OUTSIDE RECORDS SUMMARY | 2024-04-16 07:45 | XMS_ITS ---
Author Organization [facility] Address [address] [facility] [place] [address] Care Team Providers Care Form Raiser Name Role Phone Sean MCKEE, Blaire Primary Care Provider Lily Corral Unavailable [phone] Allergies Allergen (clinical drug ingredient) Drug/Non Drug Allergy documented on EMR Reaction Allergy Type Onset Date Status ibuprofen Advil on blood thinners Drug Allergy Active Aleve on blood thinners Drug Allergy Active Motrin on blood thinners Drug Allergy Active REASON FOR VISIT Dr Ma Medications Medication SIG (Take, Route, Frequency, Duration) Notes Start Date End Date Status Ammonium Lactate 12 % 1 application to affected area Externally to feet Twice a day; Duration: 30 days Not-Taking Januvia 100 MG 1 tablet Orally Once a day; Duration: 30 day(s) Not-Taking glipiZIDE 5 MG 1 tablet 30 minutes before breakfast Orally Once a day; Duration: 30 day(s) 2 tablets AM/2 tablets PM [...] (M20.41,M20.42), Preulcerative Skin Lesion(s) (L85.1 09/20/2020 Not-Taking Clotrimazole-Betamet hasone 1-0.05 % 1 application to affected area Externally Twice a day to affected areas on feet; Duration: 30 days 05/10/2022 Not-Taking Ciclopirox Olamine 0.77 % 1 application to affected area Externally to feet Twice a day; Duration: 30 days Not-Taking metFORMIN HCl 500 MG as directed Orally twice a day Not-Taking Compression Stockings 20-30mm Hg 1 pair wear daily; Duration: 30 days Active Extra Depth Orthopedic Shoes (1 Pair) with Customized Heat Molded Multidensity Innersoles (3 Pair) as directed Dx: NIDDM/Polyneuropathy (E11.42), Hammertoe Foot Deformity (M20.41,M20.42), Preulcerative Skin Lesion(s) (L85.1 Active Ketoconazole 2 % 1 application Externally Twice a day; Duration: 30 days PRN 09/30/2022 Active methIMAzole 5 MG 1 tablet Orally Once a day; Duration: 30 day(s) every other day Active Cardizem CD 240 MG 1 capsule Orally Once a day; Duration: 30 day(s) Active Eliquis 5 MG as directed Orally 1 tab AM/1 ta b PM Active Flecainide Acetate 100 MG as directed Orally 1 tab AM/1 tab PM Active Lipitor 10 MG 1 tablet Orally Once a day; Duration: 30 day(s) Active Vitamin D 25 MCG (1000 UT) 1 tablet Orally Once a day; Duration: 30 day(s) Active Furosemide 20 MG 1 tablet Orally Once a day; Duration: 30 day(s) Active Vitamin C Active Mounjaro 15 MG/0.5ML as directed Subcutaneous Active Vitamin B Complex - as directed Orally Active Contrave 8-90 MG 1 tablet in the morning Orally Once a day Active Magnesium Active Encounters Encounter Location Date Provider Diagnosis [facility] [address] [address] 04/16/2024 Lily Toledo Plan Of Treatment Next Appt Details Provider Name:Lily freeman, 04/05/2025 02:45:00 PM, [address] [place] [address], [address], Progress Notes * Lexi CORTEZOB: [birth year] (54 yo F)Acc No.[id number]:04/16/2024 Progress Note Patient: Corazon CORDOVA Provider: Ramón Toledo DPM :1970 A ge:53 Y S ex:Female Date:04/16/2024 Address:[address] [place], [place] [address] Pcp:Blaire Estrada NP Subjective: * Chief Complaints: * [address] Ma[address] * Medical History: t ype II diabetes, Asthma, Back,Hip,and Knee pain, Broken bones, Numbness, Sciatica, Chronic sinusitis, Thyroid, Chicken pox, Graves disease, A fib, Schambergs, Covid 19. * Medications: T aking Contrave 8-90 MG Tablet Extended Release 12 Hour 1 tablet in the morning Orally Once a day , Taking Vitamin B Complex - Tablet as directed Orally , Taking Magnesium , Taking Mounjaro 15 MG/0.5ML Solution Pen-injector as directed Subcutaneous , Taking Vitamin C , Taking Furosemide 20 MG Tablet 1 tablet Orally Once a day , Taking Vitamin D 25 MCG (1000 UT) Tablet 1 tablet Orally Once a day , Taking Lipitor 10 MG Tablet 1 tablet Orally Once a day , Taking Flecainide Acetate 100 MG Tablet as directed Orally , Notes to Pharmacist: 1 tab AM/1 tab PM, Taking Eliquis 5 MG Tablet as directed Orally , Notes to Pharmacist: 1 tab AM/1 tab PM, Taking Cardizem CD 240 MG Capsule Extended Release 24 Hour 1 capsule Orally Once a day , Taking methIMAzole 5 MG Tablet 1 tablet Orally Once a day , Notes to Pharmacist: every other day, Taking Ketoconazole 2 % Cream 1 application Externally Twice a day , Notes to Pharmacist: PRN, Taking Extra Depth Orthopedic Shoes (1 Pair) with Customized Heat Molded Multidensity Innersoles (3 Pair) as directed Dx: NIDDM/Polyneuropathy (E11.42), Hammertoe Foot Deformity (M20.41,M20.42), Preulcerative Skin Lesion(s) (L85.1 , Taking Compression Stockings 20-30mm Hg closed toe- knee high 1 pair wear daily , Not-Taking/PRN metFORMIN HCl 500 MG Tablet as directed Orally twice a day , Not-Taking/PRN Ciclopirox Olamine 0.77 % Cream 1 application to affected area Externally to feet Twice a day , Not-Taking/PRN Clotrimazole-Betamethasone 1- 0.05 % Cream 1 application to affected area Externally Twice a day to affected areas on feet , Not-Taking/PRN Extra Depth Orthopedic Shoes (1 Pair) with Customized Heat Molded Multidensity Innersoles (3 Pair) as directed Dx: NIDDM/Polyneuropathy (E11.42), Hammertoe Foot Deformity (M20.41,M20.42), Preulcerative Skin Lesion(s) (L85.1 , Not-Taking/PRN Extra Depth Orthopedic Shoes (1 Pair) with Customized Heat Molded Multidensity Innersoles (3 Pair) as directed Dx: NIDDM/Polyneuropathy (E11.42), Hammertoe Foot Deformity (M20.41,M20.42), Preulcerative Skin Lesion(s) (L85.1 , Not-Taking/PRN glipiZIDE 5 MG Tablet 1 tablet 30 minutes before breakfast Orally Once a day , Notes to Pharmacist: 2 tablets AM/2 tablets PM, Not-Taking/PRN Januvia 100 MG Tablet 1 tablet Orally Once a day , Not-Taking/PRN Ammonium Lactate 12 % Cream 1 application to affected area Externally to feet Twice a day * Allergies: A dvil: on blood thinners, Aleve: on blood thinners, Motrin: on blood thinners. Objective: * Vitals: Assessment: Plan: * Treatment: * Images: * The named appointment provid er may or may not be the originator of this progress note, and it is not deemed complete until electronically signed by the appointment provider. Sign off status: Pending * Provider: Ramón Toledo DPM Date: 0 04/16/2024 Generated for Jeri hauser/Flores/Ralph on: 04/21/2024 09:38 AM EST
--- OUTSIDE RECORDS SUMMARY | 2025-02-18 09:38 | XMS_ITS | Clinical Summary ---
Author Organization [facility] Address [address] [place] [address] Phone Care Team Providers Care Boat Driver Name Role Phone Blaire Estrada ACADEMIC ADVISER Primary Care Provider [phone] Surgical History Surgery Date Site/Laterality Comments CHOLECYSTECTOMY 1993 PROCEDURE: HISTORICAL CHOLECYSTECTOMY OTHER SURGICAL HISTORY 2001 PROCEDURE: SD LAPAROSCOPY SALPINGOSTOMY; COMMENT: left TONSILLECTOMY 1995 PROCEDURE: [...] on file Sexual Orientation Not on file Plan of Treatment Health Maintenance Due Date Last Done Comments Breast Cancer Screening 1968 Colorectal Cancer Screening: Colonoscopy 1968 Diabetes: Annual Foot Exam 1978 Diabetes: Annual Retina Eye Exam 1978 Hepatitis B Vaccines (1 of 3 - 19+ 3-dose series) 06/02/1987 Pneumococcal Vaccine: 50+ Years (1 of 2 - PCV) 06/02/1987 Cervical Cancer Screening: Pap Smear 1989 DTaP,Tdap,and Td Vaccines (2 - Td or Tdap) 08/17/2014 08/17/2004 RSV Immunization Adult Patients (1 - Risk 50-74 years 1-dose series) 2018 Zoster Vaccines (1 of 2) 2018 Depression Screening 02/25/2024 Cholesterol Screening (Lipid Panel) 05/05/2024 HIV Screening 05/05/2024 Hepatitis C Screening [...] probability of hip fracture of 0.0%. Code 00679 -------- FINAL REPORT -------- Dictated By: Rah Chamberlain Dictated Date: 05/20/2024 08:31 ET Assigned Physician: Rah Chamberlain Reviewed and Electronically Signed By: Rah Chamberlain Signed Date: 05/20/2024 08:32 ET Workstation ID: [id number] Transcribed By: Self Edit Transcribed Date: 05/20/2024 [...] density of the femurs bilaterally is 1.258 gm/qk9vknqx is 125% of that of young normals [...] probability of hip fracture of 0.0%. Code 74987 -------- FINAL REPORT -------- Dictated By: Rah Chamberlain Dictated Date: 05/20/2024 08:31 ET Assigned Physician: Rah Chamberalin Reviewed and Electronically Signed By: Rah Chamberlain Signed Date: 05/20/2024 08:32 ET Workstation ID: [id number] Transcribed By: Self Edit Transcribed Date: 05/20/2024 08:31 ET Blaire Estrada NP IMG DXA PROCEDURES Final Resu lt from Last 3 Months or Most Recently Relevant to Health Maintenance Insurance [facility] Care Teams Boat Driver Relationship Specialty Start Date End Date Blaire Estrada NP [address] [address] PCP - General Nurse Practitioner 05/20/24
--- OUTSIDE RECORDS SUMMARY | 2025-02-18 09:38 | XMS_ITS | Clinical Summary ---
Author Organization [facility] Address [address] [place] [address] Care Team Providers Care Surveyor Helper Name Role Phone Daniela Collins NP Unavailable Henok Delcid MD Unavailable [phone] Medications cholecalciferol , vitamin D3, 25 mcg (1,000 unit) capsule 1 capsule(s) by mouth once a day 2 Active apixaban (ELIQUIS) 5 mg Tab 1 tablet(s) by mouth twice a day 60 tablet 0 1 Active thiamine 100 MG tablet one tablet(s) by mouth once a day 2 Active spironolactone (ALDACTONE) 25 MG tablet 0.5 (One half) tablet(s) by mouth once a day 45 tablet 3 4 Active cyanocobalamin (VITAMIN B-12) 500 MCG tablet one tablet(s) by mouth once a day 2 Active sildenafiL (VIAGRA) 25 MG tablet tablet(s) oral 4 Active metoprolol ER (TOPROL-XL) 25 MG 24 hr tablet 1 tablet(s) by mouth once a day 90 tablet 3 4 Active coenzyme Q10 (CO Q-10) 10 mg capsule capsule(s) oral 4 Active losartan (COZAAR) 25 MG tablet 1 tablet(s) by mouth once a day 90 tablet 3 4 Active NON FORMULARY lions donald Dosage uncertain 2 Active Active Problems Problem Noted Date Diagnosed Date TBI (traumatic brain injury) 02/02/2021 Atrial flutter 02/02/2021 Coronary artery disease 02/02/2021 Reactive airway disease 02/02/2021 Social History Tobacco Use Types Packs/Day Years Used Date Smoking Tobacco: Never Assessed Sex and Gender Information Value Date Recorded Sex Assigned at Male 04/11/2023 2:10 AM EST Legal Sex Male 1:16 AM EST Gender Identity Unable to obtain 03/25/2023 1:16 AM EST Sexual Orientation Not on file Last Filed Vital Signs Vital Sign Reading Time Taken Comments Blood Pressure 144/94 11/04/2023 3:30 PM EDT Pulse 115 11/04/2023 3:30 PM EDT Temperature - - Respiratory Rate - - Oxygen Saturation - - Inhaled Oxygen Concentration - - Weight 109 kg (241 lb) 11/04/2023 3:30 PM EDT Height 185.4 cm (6' 1 ) 12/14/2020 12:0 0 AM EDT Legacy value: 73 in; Note: Entered in Nursing IPA; Method: Patient Reported Body Mass Index 31.8 12/14/2020 12:00 AM EDT Plan of Treatment Health Maintenance Due Date Last Done Comments PSA 1968 Prostate Cancer Screening 1968 SDM 1968 Depression Screening 1980 Hepatitis C Screening 1986 Pneumococcal Vaccine: 50+ Years (1 of 2 - PCV) 06/02/1987 CT Colonography 2013 Colonoscopy 2013 Colorectal Cancer Screening 2013 FIT 2013 FOBT 2013 Multitarget Stool DNA (Cologuard) 2013 Sigmoidoscopy 2013 Zoster Vaccine (1 of 2) 2018 Medicare Initial AWV [id number] 10/25/2018 COVID-19 Vaccine ( - season) 2024 Influenza Vaccine (#1) 2024 Blood Pressure 11/03/2024 11/04/2023 Lipid Panel 11/03/2024 11/04/2023, 09/25, 10/21/2023, Additional history exists DTaP,Tdap,and Td Vaccines (3 - Td or Tdap) 01/23/2031 01/23/2021, 10/08/2010 Meningococcal B Vaccines Aged Out No longer eligible based on patient's age to complete this topic Meningococcal Vaccines Aged Out No lo nger eligible based on patient's age to complete this topic Procedures Procedure Name Priority Date/Time Associated Diagnosis Comments LIPID PANEL Routine 11/04/2023 4:46 PM EDT Coronary artery disease, unspecified vessel or lesion type, unspecified whether angina present, unspecified whether tetlin or transplanted heart Hyperlipidemia, unspecified hyperlipidemia type from Last 3 Months or Most Recently Relevant to Health Maintenance Results * (ABNORMAL) Lipid Panel (11/04/2023 4:46 PM EDT) Cholesterol 262(H) 0 - 199 mg/dL 11/04/2023 7:34 PM EDT [facility] Triglycerides 188(H) 0 - 149 mg/dL 11/04/2023 7:34 PM EDT [facility] HDL Cholesterol 37(L) 41 - 999 mg/dL 11/04/2023 7:34 PM EDT [facility] LDL Cholesterol 187(H) 0 - 129 mg/dL 11/04/2023 7:34 PM EDT [facility] Non-HDL Cholesterol 225(H) <190 mg/dL 11/04/2023 7:34 PM EDT [facility] Ratio Chol/HDL 7.1(H) 2.0 - 5.0 11/04/2023 7:34 PM EDT [facility] Blood PERIPHERAL BLOOD SPECIMEN / Unknown Venipuncture / Unknown 11/04/2023 4:46 PM EDT 11/04/2023 4:46 PM EDT us Henok Delcid MD LAB BLOOD ORDERABLES Fin al Result [facility] [address] [place] [address], from Last 3 Months or Most Recently Relevant to Health Maintenance [facility] Care Teams Surveyor Helper Relationship Specialty Start Date End Date Daniela Collins NP [address] [place] [phone] PCP - Insurance Assigned PCP 05/02/23 Henok Delcid MD [address] [place] [id number] Cardiology 07/26/23
--- OUTSIDE RECORDS SUMMARY | 2025-02-18 09:38 | XMS_ITS | Encounter Summary ---
Author Organization [facility] Address [address] [place], [place] [id number] Care Team Providers Care Pulp Operator Name Role Phone Daniela Collins NP Unavailable [phone] Henok Delcid MD Unavailable [phone] Reason for Visit * Reason Onset Date Aly BALDERRAMA 11/10/2023 Encounter Details Date Type Department Care Team (Late st Contact Info) Description 11/10/2023 Telephone [facility] Scheduling [address] [address] Henok Balderrama MD [address] [place] [address] [place] Social History Tobacco Use Types Packs/Day Years Used Date Smoking Tobacco: Never Assessed Sex and Gender Information Value Date Recorded Sex Assigned at Male 04/11/2023 2:10 AM EST Legal Sex Male 1:16 AM EST Gender Identity Unable to obtain 03/25/2023 1:16 AM EST Sexual Orientation Not on file documented as of this encounter Plan of Treatment Not on file documented as of this encounter Visit Diagnoses Not on filedocumented in this encounter Care Teams Pulp Operator Relationship Specialty Start Date End Date Daniela Collins NP [address] [place] [phone] PCP - Insurance Assigned PCP 05/02/23 Henok Delcid MD [address] [place] [id number] Cardiology 07/26/23 documented as of this encounter
--- OUTSIDE RECORDS SUMMARY | 2025-02-18 09:38 | XMS_ITS | Patient Health Record ---
Author Organization [facility] Address [address] [facility] [place] [address] Care Team Providers Care Make Up Operator Helper Name Role Phone Sean MCKEE, Blaire Primary Care Provider Lily Corral Unavailable [phone] Allergies Allergen (clinical drug ingredient) Drug/Non Drug Allergy documented on EMR Reaction Allergy Type Onset Date Status ibuprofen Advil on blood thinners Drug Allergy Active Aleve on blood thinners Drug Allergy Active Motrin on blood thinners Drug Allergy Active Results Component Value Reference Range Notes HEMOGLOBIN A1C (GLYCOHEMOGLO BIN) Reviewed date:05/20/2024 03:29:09 PM Interpretation: Performing Lab: Notes/Report: HEMOGLOBIN A1C % (HH) 5.4 HEMOGLOBIN A1C (GLYCOHEMOGLO BIN) Reviewed date:10/22/2024 01:22:25 PM Interpretation: Performing Lab: Notes/Report: HEMOGLOBIN A1C % (HH) 5.5 Reason For Referral No Information Medications Medication SIG (Take, Route, Frequency, Duration) Notes Start Date End Date Status Mounjaro 15 MG/0.5ML as directed Subcutaneous Active Ammonium Lactate 12 % 1 application to affected area Externally to feet Twice a day; Duration: 30 days Not-Taking Extra Depth Orthopedic Shoes (1 Pair) with Customized Heat Molded Multidensity Innersoles (3 Pair) Dx: NIDDM/Polyneuropathy (E11.42), Hammertoe Foot Deformity (M20.41,M20.42), Preulcerative Skin Lesion(s) (L85.1); Duration: 365 days 12/28/2024 Active Januvia 100 MG 1 tablet Orally Once a day; Duration: 30 day(s) Not-Taking Lipitor 10 MG 1 tablet Orally Once a day; Duration: 30 day(s) Active Vitamin D 25 MCG (1000 UT) 1 tablet Orally Once a day; Duration: 30 day(s) Active Furosemide 20 MG 1 tablet Orally Once a day; Duration: 30 day(s) Active Vitamin C Active methIMAzole 5 MG 1 tablet Orally Once a day; Duration: 30 day(s) every other day Active Cardizem CD 240 MG 1 capsule Orally Once a day; Duration: 30 day(s) Active Eliquis 5 MG as directed Orally 1 tab AM/1 ta b PM Active Flecainide Acetate 100 MG as directed Orally 1 tab AM/1 tab PM Active Magnesium Active Vitamin B Complex - as directed Orally Active Compression Stockings 20-30mm Hg 1 pair wear daily; Duration: 30 days Active Extra Depth Orthopedic Shoes (1 Pair) with Customized Heat Molded Multidensity Innersoles (3 Pair) as directed Dx: NIDDM/Polyneuropathy (E11.42), Hammertoe Foot Deformity (M20.41,M20.42), Preulcerative Skin Lesion(s) (L85.1 Active Clotrimazole-Betamet hasone 1-0.05 % 1 application to affected area Externally Twice a day to affected areas on feet; Duration: 30 days 05/10/2022 Active metFORMIN HCl 500 MG as directed Orally Once a day Active Ketoconazole 2 % 1 application Apply a thin layer to externally to feet, even between toes Twice a day; Duration: 30 days Active Night Splint AFO - L1930 1 wear at rest; Duration: 30 days Active Contrave 8-90 MG 1 tablet in [...] Twice a day; Duration: 30 days Not-Taking Ketoconazole 2 % 1 application Externally Twice a day; Duration: 30 days PRN 09/30/2022 Active Immunizations Vaccine Route Administration Date Status [...] Problem Acquired hammer toe of right foot (1388057035798514 ) Other hammer toe(s) (acquired), right foot (M20.41) Active confirmed Problem Acquired hammer toe of left foot (7779208761027836 ) Other hammer toe(s) (acquired), left foot (M20.42) Active confirmed Problem Acquired hammer toe of left foot (7653896215373088 ) Hammer toe of left foot (M20.42) Active confirmed Problem Polyneuropathy due to type 2 diabetes mellitus (125137578) Type 2 diabetes mellitus with polyneuropathy (E11.42) Active confirmed Problem Plantar fascial fibromatosis (55913916) Plantar fasciitis, bilateral (M72.2) Active confirmed Vital Signs Blood pressure diastolic 67 mm Hg 12/28/2024 Height 5ft6in in 12/28/2024 Blood pressure systolic 120 mm Hg 12/28/2024 Weight 302 lbs 12/28/2024 BMI 48.74 kg/m2 12/28/2024 Encounters Encounter Location Date Provider Diagnosis [facility] [address] [place] [address] 05/20/2024 Lily Toledo Type 2 diabetes mellitus [...] M60.872 and Bursitis of left foot M77.[address] [address] 07/30/2024 Lily Toledo Type 2 diabetes mellitus [...] and Tinea pedis of both feet B35.[address] [address] 10/22/2024 Lily Toledo Plantar fasciitis, bilateral M72.2 ; Tinea pedis of both feet B35.3 and Type 2 diabetes mellitus with polyneuropathy E11.[address] [address] 12/28/2024 Lily Toledo Tinea pedis of both feet B35.3 ; Other hammer toe(s) (acquired), right foot M20.41 ; Plantar fasciitis, bilateral M72.2 ; Type 2 diabetes mellitus with polyneuropathy E11.42 and Other hammer toe(s) (acquired), left foot M20.42 [facility] [address] [address] 05/21/2024 Lily Toledo [facility] [place] [address] [facility] [address] [place] [address] 08/04/2024 Lily Toledo Assessments Encounter Date Diagnosis [...] 10/22/2024 Plantar fasciitis, bilateral (ICD-10 - M72.2) 12/28/2024 Other hammer toe(s) (acquired), right foot (ICD-10 - M20.41) Patient Educated with: DIABETIC FOOT CARE INSTRUCTIONS. pdf (DIABETIC FOOT CARE INSTRUCTIONS. pdf) 12/28/2024 Tinea pedis of both feet (ICD-10 - B35.3) 12/28/2024 Plantar fasciitis, bilateral (ICD-10 - M72.2) 07/30/2024 [...] Pain in right foot (ICD-10 - M79.671) 12/28/2024 Type 2 diabetes mellitus with polyneuropathy (ICD-10 - E11.42) 07/30/2024 Calcaneal spur, right foot (ICD-10 - M77.31) 12/28/2024 Other hammer toe(s) (acquired), left foot (ICD-10 - M20.42) 05/20/2024 Other myositis of right foot (ICD-10 [...] 05/20/2024 Next Appt Details Provider Name:Lily freeman, 04/05/2025 02:45:00 PM, [address] [facility], [place], [address], Insurance Providers Payer Name Payer Address Payer Phone Subscriber Number Group Number Insured Name Patient Relationship to Insured Coverage Start Date Coverage End Date [facility] [address] [place] [address] [phone] [id number] Corazon Cortez Self - patient is [...]
--- OUTSIDE RECORDS SUMMARY | 2025-02-18 09:38 | XMS_ITS | Patient Health Record ---
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 Operator Name Role Phone JUAN J BARKER MD Primary Care Provider ARELY Rodrigues Unavailable [phone] Allergies Allergen (clinical drug ingredient) Drug/Non Drug Allergy documented on EMR Reaction Allergy Type Onset Date Status Adhesive Unknown Allergy Active Pollen Pollen Unknown Allergy Active Silicone Silicone bad skin rash Allergy Active Reason For Referral No Information Medications Medication SIG (Take, Route, Frequency, Duration) Notes Start Date End Date Status Tylenol 8 Hour 650 MG Tablet Extended Release 2 tab(s) orally 1-2 x a day as needed Active Eliquis 5 MG Tablet as directed orally 2 times a day; Duration: 30 day(s) Active glipiZIDE 5 MG Tablet 1 tabs orally twic e a day Active metFORMIN HCl ER 500 MG Tablet Extended Release 24 Hour 1 tab am 2 tabs pm orally b.i.d. Active Cardizem CD 240 MG Capsule Extended Release 24 Hour 1 cap(s) orally once a day Active Lipitor 10 MG Tablet 1 tab(s) orally once a day; Duration: 30 day(s) Active OneTouch Verio - Strip to test blood glucose dx E11.65 once a day; Duration: 90 days 12/24/2021 Active Flecainide Acetate 100 MG Tablet 1 1/2tab(s) orally b.i.d. Active OneTouch Delica Plus [id number] - Miscellaneous to test blood glucose dx E11.65 once a day; Duration: 90 days 12/24/2021 Active Vitamin C 500 MG TAB ONE WITH FERROUS SULFATE orally Once a day NAME ONLY Conversion from [facility] Review and pick correct strength-formulati on from shenzhoufuspan options. If intended option is not shown, discontinue and re-order from Quick Search. Active Furosemide 20 MG Tablet 1 tab(s) orally once a day; Duration: 30 day(s) Active Magnesium Oxide 400 MG Tablet 1 tablet as needed Orally bid Active Mounjaro 7.5 MG/0.5ML Solution Pen-injector 1 pen Subcutaneous once a week; Duration: 90 days 03/29/2022 Active methIMAzole 5 MG Tablet 1 tab orally every other day Active Mounjaro 5 MG/0.5ML Solution Pen-injector 1 pen Subcutaneous once a week; Duration: 90 days pt coming with activated co-pay card 12/21/2021 Active Vitamin D3 25 MCG (1000 UT) Capsule 1 cap(s) orally once a day Active Multiple Vitamins 1 QD NAME ONLY Conversion from Multum Review and pick correct strength-formulati on from LoveSurfan options. If intended option is not shown, discontinue and re-order from Quick Search. 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 asbestos exposure: no alcohol use: yes weekends only drug use: no Hobbies/Exercise habits: active daily, 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, 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 Coffee/Tea/Soda: Tea 1/day, soda 20 oz.3x a week Marital Status experience no Living with smokers in household yes smo kes indoors Section Notes: Manages twin 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's finan cials b/o his TBI Manages twin brother's finan cials b/o his TBI Manages twin brother's finan cials b/o his TBI Manages twin brother's finan cials b/o his TBI Manages twin brother's finan cials b/o his TBI Manages twin brother's finan cials b/o his TBI Manages twin brother's finan cials b/o his TBI Manages twin brother's finan cials b/o his TBI Manages twin brother's finan cials b/o his TBI Manages twin brother's finan cials b/o his TBI Problems Problem Type SNOMED Code ICD Code Onset Dates Problem Status W/U Status Risk Notes Problem Vitamin D deficiency (12315523) Vitamin D deficiency (E55.9) Active confirmed Problem Hyperthyroidism (71084020) Hyperthyroidism (E05.90) Active confirmed Problem Graves' disease (377128746) Graves' disease (E05.00) Active confirmed Problem Hyperglycemia due to type 2 diabetes mellitus (557737290964403) Type 2 diabetes mellitus with hyperglycemia, without long-term current use of insulin (E11.65) Active confirmed Plan Of Treatment Future Test Test Name Order Date FREE T4 10/08/2018 TSH 10/08/2018 COMP. METABOLIC 10/08/2018 Free T3 10/08/2018 FREE T4 12/08/2018 TSH 12/08/2018 Free T3 12/08/2018 FREE T4 01/19/2020 TSH 01/19/2020 Free T3 01/19/2020 FREE T4 11/30/2020 TSH 11/30/2020 FREE T4 12/22/2021 TSH 12/22/2021 COMP. METABOLIC 12/22/2021 Free T3 12/22/2021 TSH Receptor AB (THYROTROPIN RECEPTOR AB ) 12/22/2021 Insurance Providers Payer Name Payer Address Payer Phone Subscriber Number Group Number Insured Name Patient Relationship to Insured Coverage Start Date Coverage End Date [employer] [address] [place] [address] [id number] VADIM BRISENO Self - patient is the insured Medical (General) History Medical History History ICD Code Graves' thyrotoxicosis, dx . 24 hr RAIU high 40.7%. Nl thyroid size, homogenous uptake on Tc and Iodine 123 scan. MMI start 06/12 Morbid obesity w/ Hx of wt c ycling. Lowest adult wt 298 in 2018. Highest adult wt 450 lbs in her late 30s/early 40s Type 2 DM-A1c 8.8 in 06/12 HTN Hyperlipidemia Vitamin D deficiency-20.8 in 06/12. Afib dx 03/2019-on Eliquis Surgical History Surgery Date(Month/Year) Left torn meniscus 11/30/21 cardio version 12/2020 cardio version 10/21/2019 Oral Surgery 2001,2008 Abdominal Hernia repair 2004 L Salpingoopherectomy 2004 Cholycystectomy 1994 Hospitalization History Reason Date(Month/Year) [facility] [place] ED Afib 04/02/19 [facility] As Above 10/21/19 [facility] [place] overnight 01/2022
--- OUTSIDE RECORDS SUMMARY | 2025-02-18 09:38 | XMS_ITS | Data Portability ---
Author Organization [place] - [facility], All[facility] Address [address] [address] Care Team Providers Care Chisel Mortiser Operator Name Role Phone MADDIE REYES Primary Care Provider Assessment Encounter Date Assessment Date Assessment LastModified by Organization Details LastModified Time 10/28/2024 10/28/2024 Corazon Cortez demonstrates bilateral hearing loss, with a slight difference in tones being worse on the right ear and word understanding slightly worse on the left ear. Given the absence of significant asymmetry in hearing loss and her symptoms, the likelihood of a tumor affecting the hearing or balance nerve is considered low. However, if desired, imaging can be ordered to rule out this possibility. Patient declines MRI scan. I recommend bilateral hearing aids to improve her hearing and understanding. These can be obtained through our office or from external providers. Hearing aids with Bluetooth functionality may be beneficial, and adapters can be explored if her workplace system does not support Bluetooth. Corazon is advised to consult her employer regarding accommodations for her hearing loss. Follow-up hearing evaluation is recommended in six months to monitor for any changes or worsening in the asymmetry between the ears. [email or web address] Not available 10/28/2024 12:45:47 Plan of Treatment Reminders Order Date Submit Date Provider Last Modified By Organization Details Last Modified Time Details Appointments Hearing Test 2025 09:00A M Hearing Test Not available Not available Not available Establish ed 30 2025 09:30A M AVELINA ROBERT MD Not available Not available Not available Lab None recorded. Referral None recorded. Procedures None recorded. Surgeries None recorded. Imaging None recorded. Medication Orders None recorded. Patient TargetsNo targets recorded. Patient Instructions Encounter Date Encounter Id Patient Instructions Last Modified By Organization Details Last Modified Time 10/28/2024 [id number] Consider obtaining bilateral hearing aids, either through our office or external providers. Explore hearing aids with Bluetooth functionality and workplace adapters if needed. Consult employer regarding accommodations for hearing loss. Return for follow-up hearing evaluation in six months. [email or web address] Not available 10/28/2024 11:17:42 Please note: Parts of this encounter note have been generated by AI based on audio conversation. Patient consent was required prior to utilizing this technology. Content review was required prior to finalizing the note. [email or web address] Not available 10/28/2024 11:17:42 Reason for Referral None Reported. Results Created Date Observation Date Name Description Value Unit Range Abnormal Flag Note LastModifiedBy Organization Detail LastModifiedTime 10/29/19 25 audio gram No observ ation record ed. BARCODE Not Available 2024 13:43:58 Result Notes None recorded. Problems Name Problem SNOMED Code Status Onset Date Resolution Date Notes Provider Name and Address Organization Details Recorded Time Sensorineural hearing loss of bilateral ears 174199869 Active 2024 BANDAR MORSE, [facility] [address] [facility],[address], [address], [facility] 11:03:51 Problem Notes None recorded. Procedures Surgical History Date Name Laterality Status Provider Name and Address Organization Details Recorded Time 10/28/2024 Comp Audio with Tymps - 23124 & 95292 completed BANDAR MORSE [facility] [address] [facility],[address], [address], [facility] 10/28/2024 11:03:37 Imaging Results None recorded. Procedure Notes None recorded. Medical Equipment None Reported. Medications Name Sig Start Date Stop Date Status Note LastModified by Organization Details LastModified Time metformin 500 mg tablet 500 mg every day by oral route. active Not Available Not Available No t Available Vitamin C 500 mg tablet 500 mg every day by oral route. active Not Available Not Available No t Available atorvastatin 10 mg tablet 1 tablet every day by oral route. active Not Available Not Available No t Available Diltiazem CD 240 mg/24hr capsule,exten ded release 240 mg every day by oral route. active Not Available Not Available No t Available flecainide 100 mg tablet TAKE 1 & 1/2 TABLETS BY MOUTH TWICE A DAY active Not Available Not Available No t Available methimazole 5 mg tablet 10 mg every other day by oral route. active Not Available Not Available No t Available betamethasone , augmented 0.05 % topical ointment APPLY A THIN COAT OF OINTMENT TOPICALLY TO AFFECTED AREA AT BEDTIME FOR 2 WEEKS, THEN EVERY OTHER DAY FOR 2 WEEKS, THEN TWICE A WEEK. active Not Available Not Available No t Available omeprazole 20 mg capsule,delay ed release 1 capsule every day by oral route. active Not Available Not Available No t Available furosemide 20 mg tablet 20 mg every day by oral route. active Not Available Not Available No t Available ketoconazole 2 % topical cream APPLY A THIN LAYER OF CREAM (0.5 GRAMS) TOPICALLY TO FEET, EVEN BETWEEN TOES, TWICE DAILY FOR 30 DAYS active Not Available Not Available No t Available ondansetron [address] g tablet PL[address] 1 TAB ON TONGUE AND ALLOW TO DISSOLVE NEEDED FOR NAUSEA/VOM ITING ONCE A DAY active Not Available Not Available No t Available Vitamin D3 25 mcg (1,000 unit) tablet 1 tablet every day by oral route. active Not Available Not Available No t Available active Not Available Not Avai lable Not Available [facility] Vitamin B12 active Not Available Not Available Not Available Eliquis 5 mg tablet TAKE 1 TABLET BY MOUTH TWICE DAILY active Not Available Not Available No t Available Contrave 8 mg-90 mg tablet,extend ed release 2 tablets twice a day by oral route. active Not Available Not Available No t Available magnesium 400 mg (as magnesium oxide) tablet active Not Available Not Availabl e Not Available Vitals Date Recorded Body weight Body mass index (BMI) Body height Provider Name and Address Organization Details Last Updated DateTime 10/28/2024 850615.71 g 47 kg/m2 170.18 cm Alisson Gagnon [place] - [facility] 10/28/2024 11:14:12 Social History Question Answer Notes LastModified by Organizat ion Details LastModified Time Tobacco Smoking Status Never Smoker Alisson cota [place] - [facility] 10/28/2024 11:32:07 What Type Of Gas Scrubber Operator Do You Use? None Information not available 10/28/2024 Do You Have Any Pets? No Information not available 10/28/2024 Are You Passively Exposed To Smoke? Yes Information not available 10/28/2024 Are There Any Smokers In Your House? Yes Information not available 10/28/2024 Sex: Unknown Functional Status Question Answer Note LastModified by Organizat ion Details LastModified Time Do you use any illicit or recreational drugs? No Information not available 10/28/2024 Do you or have you ever used any other forms of tobacco or nicotine? No Information not available 10/28/2024 What is your level of alcohol consumption? None Information not available 10/28/2024 What type of noise exposure are you exposed to? Other Information not available 10/28/2024 Mental Status None recorded. Family History Nothing Reported. Medical History Condition Response Allergies/Hayfever Y Heart Problems Y Anxiety Y Tonsil Infections N Emphysema N Migraines N Thyroid Problems Y Glaucoma N Depression N COPD N Developmental Delay N Nasal or Sinus Problems N Anemia N Immune System Disorder N Anesthesia Complications N Heart Attack ([place]) N Other Skin Condition N Diabetes Y Rhinitis N Bleeding Disorder N Food Allergy N Arthritis Y Hearing Loss Y Hyperlipidemia N Cancer N Stroke N Nasal polyps N Asthma Y Sleep Disorder Y GERD/Reflux N High Cholesterol N Liver Disease N Headaches Y Fibromyalgia N Hypertension N Speech Delay N Kidney Disease N Gynecological HistoryNo gynecological history recorded. Obstetrics History GPAL:G 0 P 0 0 0 0 Past Encounters Encounter ID Performer Location Encounter Start Date Encounter Closed Date Diagnosis/Indication Diagnosis SNOMED-CT Code Diagnosis ICD10 Code Diagnosis IMO Codes Diagnosis Note [id number] AVELINA VELASQUEZ MD [facility] [address] [address] 10/28/2024 10:22:27 10/28/2024 15:34:19 Sensorineural hearing loss of bilateral ears 327451850 H90.3 [id number] Audiologic al evaluation results:Ri ght ear:Mild sensorineu ral hearing loss from 250 through 1000 Hz sloping to a severe sensorineu ral hearing loss with excellent word recognitio n.Left ear:Mild sensorineu ral hearing loss from 250 through 1000 Hz sloping to a moderately severe sensorineu ral hearing loss with good word recognitio n. Tympanomet ry:Right Ear:Type ALeft Ear:Type A Health Concerns Section Related Observation LastModified by Organization Detai ls LastModified Time None Recorded Concern Status LastModified by Organization Details LastModified Time None Recorded Advance Directives Directive None Recorded Payers Insurance Date Sequence Insurance Name Policy Number Policy Angela Covered Member ID Angela Member ID Guarantor Name 10/28/2024 1 ABDIRAHMAN (PPO) [id number] Corazon Cortez [id number] Corazon Cortez Notes Date Note Type Note Provider Name and Address Organization Details Recorded Time 10/28/2024 text/html ROS as noted in the HPI Corazon Cortez is a 54-year-old female who presents for bilateral hearing concerns. She reports experiencing a sensation of ' air' in both ears, which she describes as similar to the hollow sound experienced after attending a concert. She denies dizziness but notes occasional ringing in the ears. 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 She does not perceive a significant difference between the two ears in terms of hearing quality. AVELINA DODGE MD [address] [place] [address], [place], [address], [facility] 10/28/2024 12:45:58 OBGyn Episode No OBEpisode recorded.
--- OUTSIDE RECORDS SUMMARY | 2025-02-18 09:38 | XMS_ITS | Patient Health Record ---
Author Organization [facility] [address] Address [address] [place] [address] Care Team Providers Care Trolley Collector Name Role Phone MADDIE REYES Unavailable [phone] Allergies Allergen (clinical drug ingredient) Drug/Non Drug Allergy documented on EMR Reaction Allergy Type Onset Date Status ibuprofen Ibuprofen Blood thinner Drug Allergy Act indigo Results Component Value Reference Range Notes BD BONE DENSITY DXA AXIAL SK ELETON Reviewed date:05/20/2024 08:56:43 AM Interpretation: Performing Lab: Notes/Report: Note See Note [facility], a member of [facility] Patient Name: CORAZON CORTEZ Date of : 1970 Reason for Exam: SCREENING Exam Date: 05/20/2024 [id number] EST Report Status: Final Ordering Provider: MADDIE [...] probability of hip fracture of 0.0%. Code 73834 -------- FINAL REPOR T -------- Dictated By: Rah Chamberlain Dictated Date: 05/20 08:31 ET Assigned Physician: Rah Chamberlain Reviewed and Electro nically Signed By: Rah Chamberlain Signed Date: 025 08:32 ET Workstation ID: [id number] Transcribed By: Self Edit Transcribed Date: 05/20/2024 08:31 ET Reason For Referral Reason Home Sleep Study ([facility]) Diagnosis 1 Obstructive apnea (G 47.33) Referral Organization [facility] [address] Referring Provider First Name MADDIE Referring Provider Last Name PHOEBEHOT Referring Provider Speciality Internal M edicine Referred Provider Specialty Pulmonology General Notes Alba Vail 01/2025 09:38:15 AM > Pt given phone [phone] to call and make an appt and referral form faxed to [phone] Clinical Notes Ursula Sanon 06/28 12:26:35 PM >can you resend referral to [facility] [place] needs a insurance referral, Gomez Aquino 07/05/2024 09:43:16 AM > refaxed to [facility] [place] Referral Priority Routine Reason [facility] Diagnosis 1 Sensorineural hearin g loss (SNHL) of both ears (H90.3) Referral Organization [facility] [address] Referring Provider First Name MADDIE [...] Start Date End Date Status metFORMIN HCl ER 750 MG Tablet Extended Release 24 Hour 1 tablet with evening meal Orally Once a day; Duration: 90 days Active Contrave 8-90 mg Tablet Extended Release 12 Hour TAKE 2 TABLETS TWICE A DAY Active Mounjaro 15 MG/0.5ML Solution Pen-injector 15mg Subcutaneous weekly; Duration: 30 days 03/10/2023 Active Eliquis 5 mg Tablet TAKE 1 TABLET TWICE A DAY DIRECTED Active Vitamin C Active methIMAzole 5 MG Tablet 1 tablet Oral On ce every other day; Duration: 90 days Active Magnesium Oxide 400 MG Tablet Oral; Duration: 30 Days Acti ve Flecainide Acetate 100 MG Tablet 0.5 tablet Oral every 12 hrs; Duration: 90 days Active Ondansetron 4 MG Tablet Disintegrating 1 tablet on the tongue and allow to dissolve prn nausea/vomiting Orally Once a day; Duration: 90 days 08/20/2024 Active Vitamin D (Cholecalciferol) 50 MCG (1999 UT) Capsule 1 capsule Orally Once a day Active Omeprazole 20 mg Capsule Delayed Release TAKE 1 CAPSULE ONCE DAILY ONE-HALF (1/2) TO 1 HOUR BEFORE MORNING MEAL Active Vitamin B 12 500 MCG Tablet 1 tablet Ora lly Once a day Active dilTIAZem HCl ER Coated Beads 240 MG Capsule Extended Release 24 Hour Oral; Duration: 30 Days Active Furosemide 20 MG Tablet Oral; Duration: 30 Days Active Atorvastatin Calcium 10 mg Tablet TAKE 1 TABLET DAILY Active Social History Tobacco Use: Social History Observation Description Date Details (start date - stop date) Never Smoker NA - NA Social History Drugs/Alcohol: Social Info Question Answer Notes Drugs Have you used drugs other than those for medical reasons in the past 12 months? No Tobacco Use: Social Info Question Answer Notes Tobacco Use/Smoking Are you a nonsmoker Additional Details Category Social Info Options Details Drugs/Alcohol: Do you smoke marijuana? De nies Do you drink alcohol? No Problems Problem Type SNOMED Code ICD Code Onset Dates Problem Status W/U Status Risk Notes Problem Screening for osteoporosis (699464768) Encounter for screening for osteoporosis (Z13.820) Active confirmed Problem Morbid obesity (244238020) Morbid obesity (E66.01) Active confirmed Problem Obstructive sleep apnea syndrome (75188840) NICHOLE (obstructive sleep apnea) (G47.33) Active confirmed Problem Use of anticoagulation (360322752) Chronic anticoagulation (Z79.01) Active confirmed Problem Type II diabetes mellitus without complication (616312343) Type 2 diabetes mellitus without complication, without long-term current use of insulin (E11.9) Active confirmed Problem Body mass index 40+ - severely obese (812714192) BMI 50.0-59.9, adult (Z68.43) Active confirmed Problem Graves disease (457487721) Graves disease (E05.00) Active confirmed Problem Atrial fibrillation (27469684) PAF (paroxysmal atrial fibrillation) (I48.0) Active confirmed Problem Body mass index 40+ - severely obese (880397938) BMI 45.0-49.9, adult (Z68.42) Active confirmed Problem Sensorineural hearing loss, bilateral (748732146) Sensorineural hearing loss (SNHL) of both ears (H90.3) Active confirmed Problem Obstructive sleep apnea syndrome (50414203) Obstructive apnea (G47.33) Active confirmed Vital Signs Heart Rate 84 /min 12/28/2024 Oximetry 97 % 12/28/2024 Blood pressure diastolic 64 mm Hg 12/28/2024 Height 66 in 12/28/2024 Blood pressure systolic 130 mm Hg 12/28/2024 Weight 302.8 lbs 12/28/2024 BMI 48.87 kg/m2 12/28/2024 Encounters Encounter Location Date Provider Diagnosis [facility] [address] [address] 03/17/2024 MADDIE REYES Morbid obesity E66.0 1 ; BMI 45.0-49.9, adult Z68.42 ; Dietary counseling and surveillance Z71.3 ; Type 2 diabetes mellitus without complication, without long-term current use of insulin E11.9 ; Graves disease E05.00 ; Chronic anticoagulation Z79.01 ; PAF (paroxysmal atrial fibrillation) I48.0 and NICHOLE (obstructive sleep apnea) G47.33 [facility] [address] [address] 05/05/2024 MADDIE REYES Morbid obesity E66.0 1 ; BMI 45.0-49.9, adult Z68.42 ; Dietary counseling and surveillance Z71.3 ; Type 2 diabetes mellitus without complication, without long-term current use of insulin E11.9 ; Graves disease E05.00 ; Chronic anticoagulation Z79.01 ; PAF (paroxysmal atrial fibrillation) I48.0 and NICHOLE (obstructive sleep apnea) G47.33 [facility] [address] 06/22/2024 MADDIE BRISENOT Morbid obesity E66.0 1 ; BMI [...] ears H90.3 [facility] [address] 08/20/2024 MADDIE REYES Morbid obesity E66.0 1 [...] findings Z01.30 [facility] [address] [address] 10/01/2024 MADDIE REYES Morbid obesity E66.0 1 [...] findings Z01.30 [facility] [address] 11/19/2024 MADDIECARMEN REYES Morbid obesity E66.0 [...] abnormal findings Z01.30 [facility] [address] 12/28/2024 MADDIECARMEN BRISENO Morbid obesity E66.0 1 ; BMI 45.0-49.9, [...] abnormal findings Z01.30 [facility] [address] 04/19/2024 [facility] [address] 05/05/2024 MADDIECARMEN BRISENO Encounter for screen ing for osteoporosis Z13.[address] [facility] [address] [place] [address] 05/20/2024 [facility] [address] 06/28/2024 [facility] [address] [place] [address] 07/02/2024 [facility] [address] [place] [address] 08/20/2024 MADDIE REYES Annual physical exam Z00.00 [facility] [address] 11/19/2024 [facility] [address] [address] 06/26/2024 MADDIE BORHOT [facility] [address] [facility] [address] [address] 07/02/2024 MADDIE BORHOT [facility] [address] [address] 07/03/2024 MADDIE BORHOT [facility] [address] [address] 07/05/2024 MADDIE BORHOT [facility] [address] [facility] [address] [address] 07/06/2024 MADDIE BORHOT [facility] [address] [address] 08/21/2024 MADDIE BORHOT [facility] [address] [address] 08/30/2024 MADDIE SANDHUHOT Annual physical exam Z00.00 [facility] [address] [address] 08/31/2024 MADDIE BORHOT Annual physical exam Z00.00 [facility] [address] [address] 10/26/2024 MADDIE BORHOT [facility] [address] [address] 12/15/2024 MADDIE BORHOT [facility] [address] [address] 01/14/2025 MADDIE BORHOT [facility] [address] [address] 01/18/2025 MADDIE REYES Assessments Encounter Date Diagnosis (ICD [...] software and direct typing Please excuse inadvertent pc installation engineer or typing errors, or uncorrected word substitutions Although every attempt has been made by the provider to proofread this document, occasional misspellings and typographical errors may still be present Due to the previous pandemic, and the use of personal protective equipment (PPE) This may decrease voice recognition accuracy Inadvertent pc installation engineer errors may occur 05/05/2024 Morbid obesity (ICD-10 [...] software and direct typing Please excuse inadvertent pc installation engineer or typing errors, or uncorrected word substitutions Although every attempt has been made by the provider to proofread this document, occasional misspellings and typographical errors may still be present Due to the previous pandemic, and the use of personal protective equipment (PPE) This may decrease voice recognition accuracy Inadvertent pc installation engineer errors may occur 05/05/2024 Encounter for screening [...] software and direct typing Please excuse inadvertent pc installation engineer or typing errors, or uncorrected word substitutions Although every attempt has been made by the provider to proofread this document, occasional misspellings and typographical errors may still be present Due to the previous pandemic, and the use of personal protective equipment (PPE) This may decrease voice recognition accuracy Inadvertent pc installation engineer errors may occur 06/22/2024 BMI 45.0-49.9, adult [...] software and direct typing Please excuse inadvertent pc installation engineer or typing errors, or uncorrected word substitutions Although every attempt has been made by the provider to proofread this document, occasional misspellings and typographical errors may still be present Due to the previous pandemic, and the use of personal protective equipment (PPE) This may decrease voice recognition accuracy Inadvertent pc installation engineer errors may occur 08/20/2024 Morbid obesity (ICD-10 - E66.01) Acute Concerns/Problem List: 08/20/2024 Labs reviewed and stable Stable on 15 mg of Zepbound Goal is to have BMI under 45 so she can get a left total knee replacement, recently got steroid injections with [facility] Sleep study later in the summer [...] software and direct typing Please excuse inadvertent pc installation engineer or typing errors, or uncorrected word substitutions Although every attempt has been made by the provider to proofread this document, occasional misspellings and typographical errors may still be present Due to the previous pandemic, and the use of personal protective equipment (PPE) This may decrease voice recognition accuracy Inadvertent pc installation engineer errors may occur 08/20/2024 Annual physical exam (ICD-10 - Z00.00) Acute Concerns/Problem List: 08/20/2024 Labs reviewed and stable Stable on 15 mg of Zepbound Goal is to have BMI under 45 so she can get a left total knee replacement, recently got steroid injections with [facility] Sleep study later in the summer [...] software and direct typing Please excuse inadvertent pc installation engineer or typing errors, or uncorrected word substitutions Although every attempt has been made by the provider to proofread this document, occasional misspellings and typographical errors may still be present Due to the previous pandemic, and the use of personal protective equipment (PPE) This may decrease voice recognition accuracy Inadvertent pc installation engineer errors may occur 08/20/2024 Annual physical exam (ICD-10 - Z00.00) 08/30/2024 Annual physical exam (ICD-10 - Z00.00) 08/31/2024 Annual physical exam (ICD-10 - Z00.00) 10/01/2024 Morbid obesity (ICD-10 - E66.01) #Weight Management 10/01/2024 Stable on 15 mg of Zepbound Goal is to have BMI under 45 so she can get a left total knee replacement, recently got steroid injections with [facility] She is euthyroid chemically Scheduled for [...] software and direct typing Please excuse inadvertent pc installation engineer or typing errors, or uncorrected word substitutions Although every attempt has been made by the provider to proofread this document, occasional misspellings and typographical errors may still be present Due to the previous pandemic, and the use of personal protective equipment (PPE) This may decrease voice recognition accuracy Inadvertent pc installation engineer errors may occur 11/19/2024 Morbid obesity (ICD-10 - E66.01) #Weight Management 11/19/2024 Discussed proper sleep hygiene Stable on 15 mg of Zepbound Continue Contrave maximum dosing Goal is to have BMI under 45 so she can get a left total knee replacement, recently got steroid injections with [facility] She is euthyroid chemically Scheduled for [...] software and direct typing Please excuse inadvertent pc installation engineer or typing errors, or uncorrected word substitutions Although every attempt has been made by the provider to proofread this document, occasional misspellings and typographical errors may still be present Due to the previous pandemic, and the use of personal protective equipment (PPE) This may decrease voice recognition accuracy Inadvertent pc installation engineer errors may occur 12/28/2024 Morbid obesity (ICD-10 - E66.01) #Weight Management 12/28/2024 Stable on 15 mg of Zepbound Continue Contrave maximum dosing Goal is to have BMI under 45 so she can get a left total knee replacement, recently got steroid injections with [facility] She is euthyroid chemically Scheduled for [...] software and direct typing Please excuse inadvertent pc installation engineer or typing errors, or uncorrected word substitutions Although every attempt has been made by the provider to proofread this document, occasional misspellings and typographical errors may still be present Due to the previous pandemic, and the use of personal protective equipment (PPE) This may decrease voice recognition accuracy Inadvertent pc installation engineer errors may occur 11/19/2024 BMI 45.0-49.9, adult (ICD-10 - Z68.42) #Weight Management 11/19/2024 Discussed proper sleep hygiene Stable on 15 mg of Zepbound Continue Contrave maximum dosing Goal is to have BMI under 45 so she can get a left total knee replacement, recently got steroid injections with [facility] She is euthyroid chemically Scheduled for [...] software and direct typing Please excuse inadvertent pc installation engineer or typing errors, or uncorrected word substitutions Although every attempt has been made by the provider to proofread this document, occasional misspellings and typographical errors may still be present Due to the previous pandemic, and the use of personal protective equipment (PPE) This may decrease voice recognition accuracy Inadvertent pc installation engineer errors may occur 10/01/2024 BMI 45.0-49.9, adult (ICD-10 - Z68.42) #Weight Management 10/01/2024 Stable on 15 mg of Zepbound Goal is to have BMI under 45 so she can get a left total knee replacement, recently got steroid injections with [facility] She is euthyroid chemically Scheduled for [...] software and direct typing Please excuse inadvertent pc installation engineer or typing errors, or uncorrected word substitutions Although every attempt has been made by the provider to proofread this document, occasional misspellings and typographical errors may still be present Due to the previous pandemic, and the use of personal protective equipment (PPE) This may decrease voice recognition accuracy Inadvertent pc installation engineer errors may occur 12/28/2024 BMI 45.0-49.9, adult (ICD-10 - Z68.42) #Weight Management 12/28/2024 Stable on 15 mg of Zepbound Continue Contrave maximum dosing Goal is to have BMI under 45 so she can get a left total knee replacement, recently got steroid injections with [facility] She is euthyroid chemically Scheduled for [...] software and direct typing Please excuse inadvertent pc installation engineer or typing errors, or uncorrected word substitutions Although every attempt has been made by the provider to proofread this document, occasional misspellings and typographical errors may still be present Due to the previous pandemic, and the use of personal protective equipment (PPE) This may decrease voice recognition accuracy Inadvertent pc installation engineer errors may occur 08/20/2024 BMI 45.0-49.9, adult (ICD-10 - Z68.42) Acute Concerns/Problem List: 08/20/2024 Labs reviewed and stable Stable on 15 mg of Zepbound Goal is to have BMI under 45 so she can get a left total knee replacement, recently got steroid injections with [facility] Sleep study later in the summer [...] software and direct typing Please excuse inadvertent pc installation engineer or typing errors, or uncorrected word substitutions Although every attempt has been made by the provider to proofread this document, occasional misspellings and typographical errors may still be present Due to the previous pandemic, and the use of personal protective equipment (PPE) This may decrease voice recognition accuracy Inadvertent pc installation engineer errors may occur 06/22/2024 Dietary counseling and [...] software and direct typing Please excuse inadvertent pc installation engineer or typing errors, or uncorrected word substitutions Although every attempt has been made by the provider to proofread this document, occasional misspellings and typographical errors may still be present Due to the previous pandemic, and the use of personal protective equipment (PPE) This may decrease voice recognition accuracy Inadvertent pc installation engineer errors may occur 05/05/2024 BMI 45.0-49.9, adult [...] software and direct typing Please excuse inadvertent pc installation engineer or typing errors, or uncorrected word substitutions Although every attempt has been made by the provider to proofread this document, occasional misspellings and typographical errors may still be present Due to the previous pandemic, and the use of personal protective equipment (PPE) This may decrease voice recognition accuracy Inadvertent pc installation engineer errors may occur 03/17/2024 BMI 45.0-49.9, adult [...] software and direct typing Please excuse inadvertent pc installation engineer or typing errors, or uncorrected word substitutions Although every attempt has been made by the provider to proofread this document, occasional misspellings and typographical errors may still be present Due to the previous pandemic, and the use of personal protective equipment (PPE) This may decrease voice recognition accuracy Inadvertent pc installation engineer errors may occur 03/17/2024 Dietary counseling and [...] software and direct typing Please excuse inadvertent pc installation engineer or typing errors, or uncorrected word substitutions Although every attempt has been made by the provider to proofread this document, occasional misspellings and typographical errors may still be present Due to the previous pandemic, and the use of personal protective equipment (PPE) This may decrease voice recognition accuracy Inadvertent pc installation engineer errors may occur 05/05/2024 Dietary counseling and [...] software and direct typing Please excuse inadvertent pc installation engineer or typing errors, or uncorrected word substitutions Although every attempt has been made by the provider to proofread this document, occasional misspellings and typographical errors may still be present Due to the previous pandemic, and the use of personal protective equipment (PPE) This may decrease voice recognition accuracy Inadvertent pc installation engineer errors may occur 06/22/2024 Type 2 diabetes [...] software and direct typing Please excuse inadvertent pc installation engineer or typing errors, or uncorrected word substitutions Although every attempt has been made by the provider to proofread this document, occasional misspellings and typographical errors may still be present Due to the previous pandemic, and the use of personal protective equipment (PPE) This may decrease voice recognition accuracy Inadvertent pc installation engineer errors may occur 08/20/2024 Dietary counseling and surveillance (ICD-10 - Z71.3) Acute Concerns/Problem List: 08/20/2024 Labs reviewed and stable Stable on 15 mg of Zepbound Goal is to have BMI under 45 so she can get a left total knee replacement, recently got steroid injections with [facility] Sleep study later in the summer [...] software and direct typing Please excuse inadvertent pc installation engineer or typing errors, or uncorrected word substitutions Although every attempt has been made by the provider to proofread this document, occasional misspellings and typographical errors may still be present Due to the previous pandemic, and the use of personal protective equipment (PPE) This may decrease voice recognition accuracy Inadvertent pc installation engineer errors may occur 12/28/2024 Dietary counseling and surveillance (ICD-10 - Z71.3) #Weight Management 12/28/2024 Stable on 15 mg of Zepbound Continue Contrave maximum dosing Goal is to have BMI under 45 so she can get a left total knee replacement, recently got steroid injections with [facility] She is euthyroid chemically Scheduled for [...] software and direct typing Please excuse inadvertent pc installation engineer or typing errors, or uncorrected word substitutions Although every attempt has been made by the provider to proofread this document, occasional misspellings and typographical errors may still be present Due to the previous pandemic, and the use of personal protective equipment (PPE) This may decrease voice recognition accuracy Inadvertent pc installation engineer errors may occur 10/01/2024 Dietary counseling and surveillance (ICD-10 - Z71.3) #Weight Management 10/01/2024 Stable on 15 mg of Zepbound Goal is to have BMI under 45 so she can get a left total knee replacement, recently got steroid injections with [facility] She is euthyroid chemically Scheduled for [...] software and direct typing Please excuse inadvertent pc installation engineer or typing errors, or uncorrected word substitutions Although every attempt has been made by the provider to proofread this document, occasional misspellings and typographical errors may still be present Due to the previous pandemic, and the use of personal protective equipment (PPE) This may decrease voice recognition accuracy Inadvertent pc installation engineer errors may occur 11/19/2024 Dietary counseling and surveillance (ICD-10 - Z71.3) #Weight Management 11/19/2024 Discussed proper sleep hygiene Stable on 15 mg of Zepbound Continue Contrave maximum dosing Goal is to have BMI under 45 so she can get a left total knee replacement, recently got steroid injections with [facility] She is euthyroid chemically Scheduled for updated sleep study In , November 2024 She is also working with [...] software and direct typing Please excuse inadvertent pc installation engineer or typing errors, or uncorrected word substitutions Although every attempt has been made by the provider to proofread this document, occasional misspellings and typographical errors may still be present Due to the previous pandemic, and the use of personal protective equipment (PPE) This may decrease voice recognition accuracy Inadvertent pc installation engineer errors may occur 11/19/2024 Type 2 diabetes mellitus without complication, without long-term current use of insulin (ICD-10 - E11.9) #Weight Management 11/19/2024 Discussed proper sleep hygiene Stable on 15 mg of Zepbound Continue Contrave maximum dosing Goal is to have BMI under 45 so she can get a left total knee replacement, recently got steroid injections with [facility] She is euthyroid chemically Scheduled for [...] software and direct typing Please excuse inadvertent pc installation engineer or typing errors, or uncorrected word substitutions Although every attempt has been made by the provider to proofread this document, occasional misspellings and typographical errors may still be present Due to the previous pandemic, and the use of personal protective equipment (PPE) This may decrease voice recognition accuracy Inadvertent pc installation engineer errors may occur 10/01/2024 Type 2 diabetes mellitus without complication, without long-term current use of insulin (ICD-10 - E11.9) #Weight Management 10/01/2024 Stable on 15 mg of Zepbound Goal is to have BMI under 45 so she can get a left total knee replacement, recently got steroid injections with [facility] She is euthyroid chemically Scheduled for [...] software and direct typing Please excuse inadvertent pc installation engineer or typing errors, or uncorrected word substitutions Although every attempt has been made by the provider to proofread this document, occasional misspellings and typographical errors may still be present Due to the previous pandemic, and the use of personal protective equipment (PPE) This may decrease voice recognition accuracy Inadvertent pc installation engineer errors may occur 12/28/2024 Type 2 diabetes mellitus without complication, without long-term current use of insulin (ICD-10 - E11.9) #Weight Management 12/28/2024 Stable on 15 mg of Zepbound Continue Contrave maximum dosing Goal is to have BMI under 45 so she can get a left total knee replacement, recently got steroid injections with [facility] She is euthyroid chemically Scheduled for [...] software and direct typing Please excuse inadvertent pc installation engineer or typing errors, or uncorrected word substitutions Although every attempt has been made by the provider to proofread this document, occasional misspellings and typographical errors may still be present Due to the previous pandemic, and the use of personal protective equipment (PPE) This may decrease voice recognition accuracy Inadvertent pc installation engineer errors may occur 08/20/2024 Type 2 diabetes mellitus without complication, without long-term current use of insulin (ICD-10 - E11.9) Acute Concerns/Problem List: 08/20/2024 Labs reviewed and stable Stable on 15 mg of Zepbound Goal is to have BMI under 45 so she can get a left total knee replacement, recently got steroid injections with [facility] Sleep study later in the summer [...] software and direct typing Please excuse inadvertent pc installation engineer or typing errors, or uncorrected word substitutions Although every attempt has been made by the provider to proofread this document, occasional misspellings and typographical errors may still be present Due to the previous pandemic, and the use of personal protective equipment (PPE) This may decrease voice recognition accuracy Inadvertent pc installation engineer errors may occur 06/22/2024 Graves disease (ICD-10 [...] software and direct typing Please excuse inadvertent pc installation engineer or typing errors, or uncorrected word substitutions Although every attempt has been made by the provider to proofread this document, occasional misspellings and typographical errors may still be present Due to the previous pandemic, and the use of personal protective equipment (PPE) This may decrease voice recognition accuracy Inadvertent pc installation engineer errors may occur 05/05/2024 Type 2 diabetes [...] software and direct typing Please excuse inadvertent pc installation engineer or typing errors, or uncorrected word substitutions Although every attempt has been made by the provider to proofread this document, occasional misspellings and typographical errors may still be present Due to the previous pandemic, and the use of personal protective equipment (PPE) This may decrease voice recognition accuracy Inadvertent pc installation engineer errors may occur 03/17/2024 Type 2 diabetes [...] software and direct typing Please excuse inadvertent pc installation engineer or typing errors, or uncorrected word substitutions Although every attempt has been made by the provider to proofread this document, occasional misspellings and typographical errors may still be present Due to the previous pandemic, and the use of personal protective equipment (PPE) This may decrease voice recognition accuracy Inadvertent pc installation engineer errors may occur 03/17/2024 Graves disease (ICD-10 [...] software and direct typing Please excuse inadvertent pc installation engineer or typing errors, or uncorrected word substitutions Although every attempt has been made by the provider to proofread this document, occasional misspellings and typographical errors may still be present Due to the previous pandemic, and the use of personal protective equipment (PPE) This may decrease voice recognition accuracy Inadvertent pc installation engineer errors may occur 05/05/2024 Graves disease (ICD-10 [...] software and direct typing Please excuse inadvertent pc installation engineer or typing errors, or uncorrected word substitutions Although every attempt has been made by the provider to proofread this document, occasional misspellings and typographical errors may still be present Due to the previous pandemic, and the use of personal protective equipment (PPE) This may decrease voice recognition accuracy Inadvertent pc installation engineer errors may occur 06/22/2024 Chronic anticoagulation (ICD-10 [...] software and direct typing Please excuse inadvertent pc installation engineer or typing errors, or uncorrected word substitutions Although every attempt has been made by the provider to proofread this document, occasional misspellings and typographical errors may still be present Due to the previous pandemic, and the use of personal protective equipment (PPE) This may decrease voice recognition accuracy Inadvertent pc installation engineer errors may occur 08/20/2024 Graves disease (ICD-10 - E05.00) Acute Concerns/Problem List: 08/20/2024 Labs reviewed and stable Stable on 15 mg of Zepbound Goal is to have BMI under 45 so she can get a left total knee replacement, recently got steroid injections with [facility] Sleep study later in the summer [...] software and direct typing Please excuse inadvertent pc installation engineer or typing errors, or uncorrected word substitutions Although every attempt has been made by the provider to proofread this document, occasional misspellings and typographical errors may still be present Due to the previous pandemic, and the use of personal protective equipment (PPE) This may decrease voice recognition accuracy Inadvertent pc installation engineer errors may occur 12/28/2024 Graves disease (ICD-10 - E05.00) #Weight Management 12/28/2024 Stable on 15 mg of Zepbound Continue Contrave maximum dosing Goal is to have BMI under 45 so she can get a left total knee replacement, recently got steroid injections with [facility] She is euthyroid chemically Scheduled for [...] software and direct typing Please excuse inadvertent pc installation engineer or typing errors, or uncorrected word substitutions Although every attempt has been made by the provider to proofread this document, occasional misspellings and typographical errors may still be present Due to the previous pandemic, and the use of personal protective equipment (PPE) This may decrease voice recognition accuracy Inadvertent pc installation engineer errors may occur 10/01/2024 Graves disease (ICD-10 - E05.00) #Weight Management 10/01/2024 Stable on 15 mg of Zepbound Goal is to have BMI under 45 so she can get a left total knee replacement, recently got steroid injections with [facility] She is euthyroid chemically Scheduled for [...] software and direct typing Please excuse inadvertent pc installation engineer or typing errors, or uncorrected word substitutions Although every attempt has been made by the provider to proofread this document, occasional misspellings and typographical errors may still be present Due to the previous pandemic, and the use of personal protective equipment (PPE) This may decrease voice recognition accuracy Inadvertent pc installation engineer errors may occur 11/19/2024 Graves disease (ICD-10 - E05.00) #Weight Management 11/19/2024 Discussed proper sleep hygiene Stable on 15 mg of Zepbound Continue Contrave maximum dosing Goal is to have BMI under 45 so she can get a left total knee replacement, recently got steroid injections with [facility] She is euthyroid chemically Scheduled for [...] software and direct typing Please excuse inadvertent pc installation engineer or typing errors, or uncorrected word substitutions Although every attempt has been made by the provider to proofread this document, occasional misspellings and typographical errors may still be present Due to the previous pandemic, and the use of personal protective equipment (PPE) This may decrease voice recognition accuracy Inadvertent pc installation engineer errors may occur 11/19/2024 Chronic anticoagulation (ICD-10 - Z79.01) #Weight Management 11/19/2024 Discussed proper sleep hygiene Stable on 15 mg of Zepbound Continue Contrave maximum dosing Goal is to have BMI under 45 so she can get a left total knee replacement, recently got steroid injections with [facility] She is euthyroid chemically Scheduled for [...] software and direct typing Please excuse inadvertent pc installation engineer or typing errors, or uncorrected word substitutions Although every attempt has been made by the provider to proofread this document, occasional misspellings and typographical errors may still be present Due to the previous pandemic, and the use of personal protective equipment (PPE) This may decrease voice recognition accuracy Inadvertent pc installation engineer errors may occur 10/01/2024 Chronic anticoagulation (ICD-10 - Z79.01) #Weight Management 10/01/2024 Stable on 15 mg of Zepbound Goal is to have BMI under 45 so she can get a left total knee replacement, recently got steroid injections with [facility] She is euthyroid chemically Scheduled for [...] software and direct typing Please excuse inadvertent pc installation engineer or typing errors, or uncorrected word substitutions Although every attempt has been made by the provider to proofread this document, occasional misspellings and typographical errors may still be present Due to the previous pandemic, and the use of personal protective equipment (PPE) This may decrease voice recognition accuracy Inadvertent pc installation engineer errors may occur 12/28/2024 Chronic anticoagulation (ICD-10 - Z79.01) #Weight Management 12/28/2024 Stable on 15 mg of Zepbound Continue Contrave maximum dosing Goal is to have BMI under 45 so she can get a left total knee replacement, recently got steroid injections with [facility] She is euthyroid chemically Scheduled for [...] software and direct typing Please excuse inadvertent pc installation engineer or typing errors, or uncorrected word substitutions Although every attempt has been made by the provider to proofread this document, occasional misspellings and typographical errors may still be present Due to the previous pandemic, and the use of personal protective equipment (PPE) This may decrease voice recognition accuracy Inadvertent pc installation engineer errors may occur 08/20/2024 Chronic anticoagulation (ICD-10 - Z79.01) Acute Concerns/Problem List: 08/20/2024 Labs reviewed and stable Stable on 15 mg of Zepbound Goal is to have BMI under 45 so she can get a left total knee replacement, recently got steroid injections with [facility] Sleep study later in the summer [...] software and direct typing Please excuse inadvertent pc installation engineer or typing errors, or uncorrected word substitutions Although every attempt has been made by the provider to proofread this document, occasional misspellings and typographical errors may still be present Due to the previous pandemic, and the use of personal protective equipment (PPE) This may decrease voice recognition accuracy Inadvertent pc installation engineer errors may occur 06/22/2024 PAF (paroxysmal atrial [...] software and direct typing Please excuse inadvertent pc installation engineer or typing errors, or uncorrected word substitutions Although every attempt has been made by the provider to proofread this document, occasional misspellings and typographical errors may still be present Due to the previous pandemic, and the use of personal protective equipment (PPE) This may decrease voice recognition accuracy Inadvertent pc installation engineer errors may occur 03/17/2024 Chronic anticoagulation (ICD-10 [...] software and direct typing Please excuse inadvertent pc installation engineer or typing errors, or uncorrected word substitutions Although every attempt has been made by the provider to proofread this document, occasional misspellings and typographical errors may still be present Due to the previous pandemic, and the use of personal protective equipment (PPE) This may decrease voice recognition accuracy Inadvertent pc installation engineer errors may occur 05/05/2024 Chronic anticoagulation (ICD-10 [...] software and direct typing Please excuse inadvertent pc installation engineer or typing errors, or uncorrected word substitutions Although every attempt has been made by the provider to proofread this document, occasional misspellings and typographical errors may still be present Due to the previous pandemic, and the use of personal protective equipment (PPE) This may decrease voice recognition accuracy Inadvertent pc installation engineer errors may occur 03/17/2024 PAF (paroxysmal atrial [...] software and direct typing Please excuse inadvertent pc installation engineer or typing errors, or uncorrected word substitutions Although every attempt has been made by the provider to proofread this document, occasional misspellings and typographical errors may still be present Due to the previous pandemic, and the use of personal protective equipment (PPE) This may decrease voice recognition accuracy Inadvertent pc installation engineer errors may occur 05/05/2024 PAF (paroxysmal atrial [...] software and direct typing Please excuse inadvertent pc installation engineer or typing errors, or uncorrected word substitutions Although every attempt has been made by the provider to proofread this document, occasional misspellings and typographical errors may still be present Due to the previous pandemic, and the use of personal protective equipment (PPE) This may decrease voice recognition accuracy Inadvertent pc installation engineer errors may occur 06/22/2024 NICHOLE (obstructive sleep [...] software and direct typing Please excuse inadvertent pc installation engineer or typing errors, or uncorrected word substitutions Although every attempt has been made by the provider to proofread this document, occasional misspellings and typographical errors may still be present Due to the previous pandemic, and the use of personal protective equipment (PPE) This may decrease voice recognition accuracy Inadvertent pc installation engineer errors may occur 08/20/2024 PAF (paroxysmal atrial fibrillation) (ICD-10 - I48.0) Acute Concerns/Problem List: 08/20/2024 Labs reviewed and stable Stable on 15 mg of Zepbound Goal is to have BMI under 45 so she can get a left total knee replacement, recently got steroid injections with [facility] Sleep study later in the summer [...] software and direct typing Please excuse inadvertent pc installation engineer or typing errors, or uncorrected word substitutions Although every attempt has been made by the provider to proofread this document, occasional misspellings and typographical errors may still be present Due to the previous pandemic, and the use of personal protective equipment (PPE) This may decrease voice recognition accuracy Inadvertent pc installation engineer errors may occur 12/28/2024 PAF (paroxysmal atrial fibrillation) (ICD-10 - I48.0) #Weight Management 12/28/2024 Stable on 15 mg of Zepbound Continue Contrave maximum dosing Goal is to have BMI under 45 so she can get a left total knee replacement, recently got steroid injections with [facility] She is euthyroid chemically Scheduled for [...] software and direct typing Please excuse inadvertent pc installation engineer or typing errors, or uncorrected word substitutions Although every attempt has been made by the provider to proofread this document, occasional misspellings and typographical errors may still be present Due to the previous pandemic, and the use of personal protective equipment (PPE) This may decrease voice recognition accuracy Inadvertent pc installation engineer errors may occur 10/01/2024 PAF (paroxysmal atrial fibrillation) (ICD-10 - I48.0) #Weight Management 10/01/2024 Stable on 15 mg of Zepbound Goal is to have BMI under 45 so she can get a left total knee replacement, recently got steroid injections with [facility] She is euthyroid chemically Scheduled for [...] software and direct typing Please excuse inadvertent pc installation engineer or typing errors, or uncorrected word substitutions Although every attempt has been made by the provider to proofread this document, occasional misspellings and typographical errors may still be present Due to the previous pandemic, and the use of personal protective equipment (PPE) This may decrease voice recognition accuracy Inadvertent pc installation engineer errors may occur 11/19/2024 PAF (paroxysmal atrial fibrillation) (ICD-10 - I48.0) #Weight Management 11/19/2024 Discussed proper sleep hygiene Stable on 15 mg of Zepbound Continue Contrave maximum dosing Goal is to have BMI under 45 so she can get a left total knee replacement, recently got steroid injections with [facility] She is euthyroid chemically Scheduled for [...] software and direct typing Please excuse inadvertent pc installation engineer or typing errors, or uncorrected word substitutions Although every attempt has been made by the provider to proofread this document, occasional misspellings and typographical errors may still be present Due to the previous pandemic, and the use of personal protective equipment (PPE) This may decrease voice recognition accuracy Inadvertent pc installation engineer errors may occur 12/28/2024 NICHOLE (obstructive sleep apnea) (ICD-10 - G47.33) #Weight Management 12/28/2024 Stable on 15 mg of Zepbound Continue Contrave maximum dosing Goal is to have BMI under 45 so she can get a left total knee replacement, recently got steroid injections with [facility] She is euthyroid chemically Scheduled for [...] software and direct typing Please excuse inadvertent pc installation engineer or typing errors, or uncorrected word substitutions Although every attempt has been made by the provider to proofread this document, occasional misspellings and typographical errors may still be present Due to the previous pandemic, and the use of personal protective equipment (PPE) This may decrease voice recognition accuracy Inadvertent pc installation engineer errors may occur 11/19/2024 NICHOLE (obstructive sleep apnea) (ICD-10 - G47.33) #Weight Management 11/19/2024 Discussed proper sleep hygiene Stable on 15 mg of Zepbound Continue Contrave maximum dosing Goal is to have BMI under 45 so she can get a left total knee replacement, recently got steroid injections with [facility] She is euthyroid chemically Scheduled for [...] software and direct typing Please excuse inadvertent pc installation engineer or typing errors, or uncorrected word substitutions Although every attempt has been made by the provider to proofread this document, occasional misspellings and typographical errors may still be present Due to the previous pandemic, and the use of personal protective equipment (PPE) This may decrease voice recognition accuracy Inadvertent pc installation engineer errors may occur 08/20/2024 NICHOLE (obstructive sleep apnea) (ICD-10 - G47.33) Acute Concerns/Problem List: 08/20/2024 Labs reviewed and stable Stable on 15 mg of Zepbound Goal is to have BMI under 45 so she can get a left total knee replacement, recently got steroid injections with [facility] Sleep study later in the summer She [...] software and direct typing Please excuse inadvertent pc installation engineer or typing errors, or uncorrected word substitutions Although every attempt has been made by the provider to proofread this document, occasional misspellings and typographical errors may still be present Due to the previous pandemic, and the use of personal protective equipment (PPE) This may decrease voice recognition accuracy Inadvertent pc installation engineer errors may occur 06/22/2024 Sensorineural hearing loss [...] software and direct typing Please excuse inadvertent pc installation engineer or typing errors, or uncorrected word substitutions Although every attempt has been made by the provider to proofread this document, occasional misspellings and typographical errors may still be present Due to the previous pandemic, and the use of personal protective equipment (PPE) This may decrease voice recognition accuracy Inadvertent pc installation engineer errors may occur 10/01/2024 NICHOLE (obstructive sleep apnea) (ICD-10 - G47.33) #Weight Management 10/01/2024 Stable on 15 mg of Zepbound Goal is to have BMI under 45 so she can get a left total knee replacement, recently got steroid injections with [facility] She is euthyroid chemically Scheduled for [...] software and direct typing Please excuse inadvertent pc installation engineer or typing errors, or uncorrected word substitutions Although every attempt has been made by the provider to proofread this document, occasional misspellings and typographical errors may still be present Due to the previous pandemic, and the use of personal protective equipment (PPE) This may decrease voice recognition accuracy Inadvertent pc installation engineer errors may occur 05/05/2024 NICHOLE (obstructive sleep [...] software and direct typing Please excuse inadvertent pc installation engineer or typing errors, or uncorrected word substitutions Although every attempt has been made by the provider to proofread this document, occasional misspellings and typographical errors may still be present Due to the previous pandemic, and the use of personal protective equipment (PPE) This may decrease voice recognition accuracy Inadvertent pc installation engineer errors may occur 03/17/2024 NICHOLE (obstructive sleep [...] software and direct typing Please excuse inadvertent pc installation engineer or typing errors, or uncorrected word substitutions Although every attempt has been made by the provider to proofread this document, occasional misspellings and typographical errors may still be present Due to the previous pandemic, and the use of personal protective equipment (PPE) This may decrease voice recognition accuracy Inadvertent pc installation engineer errors may occur 08/20/2024 Sensorineural hearing loss (SNHL) of both ears (ICD-10 - H90.3) Acute Concerns/Problem List: 08/20/2024 Labs reviewed and stable Stable on 15 mg of Zepbound Goal is to have BMI under 45 so she can get a left total knee replacement, recently got steroid injections with [facility] Sleep study later in the summer [...] software and direct typing Please excuse inadvertent pc installation engineer or typing errors, or uncorrected word substitutions Although every attempt has been made by the provider to proofread this document, occasional misspellings and typographical errors may still be present Due to the previous pandemic, and the use of personal protective equipment (PPE) This may decrease voice recognition accuracy Inadvertent pc installation engineer errors may occur 10/01/2024 Sensorineural hearing loss (SNHL) of both ears (ICD-10 - H90.3) #Weight Management 10/01/2024 Stable on 15 mg of Zepbound Goal is to have BMI under 45 so she can get a left total knee replacement, recently got steroid injections with [facility] She is euthyroid chemically Scheduled for [...] software and direct typing Please excuse inadvertent pc installation engineer or typing errors, or uncorrected word substitutions Although every attempt has been made by the provider to proofread this document, occasional misspellings and typographical errors may still be present Due to the previous pandemic, and the use of personal protective equipment (PPE) This may decrease voice recognition accuracy Inadvertent pc installation engineer errors may occur 11/19/2024 Sensorineural hearing loss (SNHL) of both ears (ICD-10 - H90.3) #Weight Management 11/19/2024 Discussed proper sleep hygiene Stable on 15 mg of Zepbound Continue Contrave maximum dosing Goal is to have BMI under 45 so she can get a left total knee replacement, recently got steroid injections with [facility] She is euthyroid chemically Scheduled for [...] software and direct typing Please excuse inadvertent pc installation engineer or typing errors, or uncorrected word substitutions Although every attempt has been made by the provider to proofread this document, occasional misspellings and typographical errors may still be present Due to the previous pandemic, and the use of personal protective equipment (PPE) This may decrease voice recognition accuracy Inadvertent pc installation engineer errors may occur 12/28/2024 Sensorineural hearing loss (SNHL) of both ears (ICD-10 - H90.3) #Weight Management 12/28/2024 Stable on 15 mg of Zepbound Continue Contrave maximum dosing Goal is to have BMI under 45 so she can get a left total knee replacement, recently got steroid injections with [facility] She is euthyroid chemically Scheduled for [...] software and direct typing Please excuse inadvertent pc installation engineer or typing errors, or uncorrected word substitutions Although every attempt has been made by the provider to proofread this document, occasional misspellings and typographical errors may still be present Due to the previous pandemic, and the use of personal protective equipment (PPE) This may decrease voice recognition accuracy Inadvertent pc installation engineer errors may occur 12/28/2024 Encounter for examination of blood pressure without abnormal findings (ICD-10 - Z01.30) #Weight Management 12/28/2024 Stable on 15 mg of Zepbound Continue Contrave maximum dosing Goal is to have BMI under 45 so she can get a left total knee replacement, recently got steroid injections with [facility] She is euthyroid chemically Scheduled for [...] software and direct typing Please excuse inadvertent pc installation engineer or typing errors, or uncorrected word substitutions Although every attempt has been made by the provider to proofread this document, occasional misspellings and typographical errors may still be present Due to the previous pandemic, and the use of personal protective equipment (PPE) This may decrease voice recognition accuracy Inadvertent pc installation engineer errors may occur 11/19/2024 Encounter for examination of blood pressure without abnormal findings (ICD-10 - Z01.30) #Weight Management 11/19/2024 Discussed proper sleep hygiene Stable on 15 mg of Zepbound Continue Contrave maximum dosing Goal is to have BMI under 45 so she can get a left total knee replacement, recently got steroid injections with [facility] She is euthyroid chemically Scheduled for [...] software and direct typing Please excuse inadvertent pc installation engineer or typing errors, or uncorrected word substitutions Although every attempt has been made by the provider to proofread this document, occasional misspellings and typographical errors may still be present Due to the previous pandemic, and the use of personal protective equipment (PPE) This may decrease voice recognition accuracy Inadvertent pc installation engineer errors may occur 10/01/2024 Encounter for examination of blood pressure without abnormal findings (ICD-10 - Z01.30) #Weight Management 10/01/2024 Stable on 15 mg of Zepbound Goal is to have BMI under 45 so she can get a left total knee replacement, recently got steroid injections with [facility] She is euthyroid chemically Scheduled for [...] software and direct typing Please excuse inadvertent pc installation engineer or typing errors, or uncorrected word substitutions Although every attempt has been made by the provider to proofread this document, occasional misspellings and typographical errors may still be present Due to the previous pandemic, and the use of personal protective equipment (PPE) This may decrease voice recognition accuracy Inadvertent pc installation engineer errors may occur 08/20/2024 Encounter for examination of blood pressure without abnormal findings (ICD-10 - Z01.30) Acute Concerns/Problem List: 08/20/2024 Labs reviewed and stable Stable on 15 mg of Zepbound Goal is to have BMI under 45 so she can get a left total knee replacement, recently got steroid injections with [facility] Sleep study later in the summer [...] software and direct typing Please excuse inadvertent pc installation engineer or typing errors, or uncorrected word substitutions Although every attempt has been made by the provider to proofread this document, occasional misspellings and typographical errors may still be present Due to the previous pandemic, and the use of personal protective equipment (PPE) This may decrease voice recognition accuracy Inadvertent pc installation engineer errors may occur Plan Of Treatment Pending Test Test Name Order Date Bone Density 05/05/2024 Next Appt Details Provider Name:MADDIE REYES, 02/21/2025 11:00:00 AM, [address] [facility], [facility] [address], [place], [id number], Insurance Providers Payer Name Payer Address Payer Phone Subscriber Number Group Number Insured Name Patient Relationship to Insured Coverage Start Date Coverage End Date [facility] [address] [place] [address] [phone] [id number] Corazon Cortez Self - patient is the insured Medical (General) History Medical History History ICD Code diabetes mellitus graves disease afib gastroesophageal reflux disease (GERD) hyperlipidemia asthma sleep apnea Surgical History Surgery Date(Month/Year) cholecystectomy umbilical hernia repair arthroscopic knee surgery left partial hysterectomy Hospitalization History Reason Date(Month/Year) cardioversion x 3 episodes (01/2022, 2020, 09/2019)
[2025-02-18 15:03] LABS: Alanine Aminotransferase 7 U/L (0-31); Anion Gap 13 (12-20); Aspartate Amino Transferase 19 U/L (5-31); Blood Urea Nitrogen 14 mg/dL (9-16); Calcium 9.4 mg/dL (8.4-10.2); Carbon Dioxide 26 mmol/L (22-29); Chloride 107 mmol/L (96-108); Estimated Glomerular Filt Rate > 60; Potassium 4.0 mmol/L (3.3-5.1); Sodium 142 mmol/L (135-145)
[2025-02-18 17:15] LABS: Free T4 (Free Thyroxine) 1.44 ng/dL (0.71-1.85)
== END 2025-02-18 09:34 | disposition home or self-care (01) ==
LOC: HO.HMGCLDS 09:33
PROVIDERS: PCP Nurse Practitioner Acute Care; Visit Provider Physician Assistant
DX: E11.42 Type 2 diabetes mellitus with diabetic polyneuropathy (principal)
CPT/HCPCS: 36415; 80048; 83036; 84439; 84443; 84450; 84460